=== PATIENT | female | born 1955 | race Caucasian/White ===

== ENCOUNTER → 2018-01-07 06:04 | Outpatient (CLI) | payer OTHER, SELFPAY ==
[2018-01-07 07:42] LABS: Hemoglobin A1c 6.5 % (4.2-6.3)
[2018-01-07 07:44] LABS: Anion Gap 4 (5-15); BUN 11 mg/dL (7-18); BUN/Creat Ratio 13.7 RATIO (10-20); Calcium,Total 8.7 mg/dL (8.5-10.1); Chloride 103 mmol/L (98-107); Cholesterol 108 mg/dL (200); EST Glomerular Filtration Rate 77 mL/min (>60); Est Glom Filt Rate - Afr Amer 93 mL/min (>60); Glucose 137 mg/dL (74-106); High Density Lipoprotein 51 mg/dL; Potassium 3.9 mmol/L (3.5-5.1); Sodium Level 140 mmol/L (136-145); Triglycerides 69 mg/dL; Very Low Density Lipoprotein 14 mg/dL (5-40)
== END ==
PROVIDERS: Family Provider Family Medicine; PCP Family Medicine; Visit Provider Family Medicine
DX: E11.9 Type 2 diabetes mellitus without complications (principal); E78.00 Pure hypercholesterolemia, unspecified; E03.9 Hypothyroidism, unspecified
CPT/HCPCS: 36415; 80048; 80061; 83036; 84443

== ENCOUNTER → 2018-01-12 16:40 | Outpatient (CLI) | payer OTHER, SELFPAY ==
[2018-01-23 12:44] LABS: HPV Reflexed? NOT INDICATED
== END ==
PROVIDERS: Family Provider Family Medicine; PCP Family Medicine; Visit Provider Family Medicine
DX: Z01.419 Encounter for gynecological examination (general) (routine) without abnormal findings (principal)
CPT/HCPCS: 88175; G0145

== ENCOUNTER → 2018-02-09 06:54 | Outpatient (CLI) | payer OTHER, SELFPAY ==
--- NOTE | 2018-02-09 06:48 | BI_ITS ---
MAMMOGRAPHY - BILATERAL SCREENING 3-D KENYETTA SYNTHESIS REASON FOR EXAM: Female, 63 years old. Bilateral Screening 3-D tomosynthesis PERTINENT HISTORY: No significant family history. TECHNIQUE: 2-D mammograms and 3-D Kenyetta synthesis of the breast (s) were performed. CAD was performed. COMPARISON: 02/05/2017 FINDINGS: The breast composition is composed of scattered fibroglandular density. Scattered benign calcifications are seen. No dense spiculated masses or suspicious microcalcifications are identified. No architectural distortion is identified. There is no skin thickening or retraction. Stable axillary adenopathy There has been no significant change since the prior study. BI/SCREENING MAMM (CAD), BILAT IMPRESSION: No mammographic signs of malignancy. Routine yearly mammograms recommended. ASSESSMENT CATEGORY: BIRADS Category 2: Benign. A letter regarding these results will be sent to the patient by the facility within 30 days. FOLLOW UP RECOMMENDATION: Yearly follow up mammogram recommended. (A) Approximately 10% of breast cancers are not detected by mammography. A normal mammogram should not delay biopsy of a clinically suspicious abnormality. Electronically Signed: Wayne Richardson MD at 9:34 EDT , Service support ,
== END ==
PROVIDERS: Family Provider Family Medicine; PCP Family Medicine; Visit Provider Family Medicine
DX: Z12.31 Encounter for screening mammogram for malignant neoplasm of breast (principal)
CPT/HCPCS: 77063; 77067

== ENCOUNTER → 2018-04-30 09:30 | Outpatient (CLI) | payer OTHER, SELFPAY ==
--- NOTE | 2018-04-30 09:38 | RAD_ITS ---
STUDY: X-RAY - RIGHT SHOULDER REASON FOR EXAM: Female, 63 years old. Pain. TECHNIQUE: 4 view(s) of the shoulder. COMPARISON: None. FINDINGS: Normal glenohumeral articulation. There is degenerative arthrosis of the acromioclavicular joint without inferior osseous spur formation. Normal acromion. There is no acute fracture, dislocation or destructive osseous pathology. There is demineralization of the humerus and visualized osseous structures. The soft tissue structures are unremarkable. Normal visualized pulmonary apex. RAD/Shoulder min 2 Views IMPRESSION: Degenerative change of the right shoulder without fracture or dislocation. Electronically Signed: Jeyson Perez DO at 18:08 EDT Tel [phone], Service support ,
== END ==
PROVIDERS: Family Provider Family Medicine; PCP Family Medicine; Visit Provider Family Medicine
DX: S40.011A Contusion of right shoulder, initial encounter (principal)
CPT/HCPCS: 73030

== ENCOUNTER → 2018-07-03 05:54 | Outpatient (CLI) | payer OTHER, SELFPAY ==
[2018-07-03 06:32] LABS: Absolute Lymphocyte Count 1.94 X10^3/ul (0.83-4.51); Absolute Neutrophil Count 3.5 X10^3/uL (2.0-7.7); Basophil# 0.06 X10^3/uL; Eosinophil# 0.02 X10^3/uL; Eosinophils% 0.3 % (0-5); Hematocrit 36.8 % (37-47); Hemoglobin 11.8 g/dl (12.0-15.0); Lymphocyte # 1.94 X10^3/ul (4.0); Lymphocyte % 31.9 % (19-41); Mean Corp Hgb Conc 32.1 g/gl (32-36); Mean Corpuscular Hgb 28.6 pg (27.0-32.0); Mean Corpuscular Volume 89.1 fL (81-99); Mean Platelet Vol. 10.1 fl (6.2-12.0); Monocyte# 0.56 X10^3/uL; Monocyte% 9.2 % (0-10); Neutrophil % 57.4 % (47-70); Platelet Count 223 K/mm3 (150-450); RBC Distribution Width CV 13.3 % (11.6-14.6); RBC Distribution Width SD 42.6 fl (35.1-43.9); Red Blood Count 4.13 M/mm3 (4.2-5.4); White Blood Count 6.1 K/mm3 (4.4-11.0)
[2018-07-03 06:36] LABS: POSITIVE COUNT NO; POSITIVE DIFFERENTIAL NO; POSITIVE MORPHOLOGY NO
[2018-07-03 06:54] LABS: Anion Gap 8 (5-15); BUN 17 mg/dL (7-18); Calcium,Total 8.6 mg/dL (8.5-10.1); Chloride 103 mmol/L (98-107); Cholesterol 113 mg/dL (200); Creatinine, Serum 0.85 mg/dL (0.55-1.02); EST Glomerular Filtration Rate 72 mL/min (>60); Est Glom Filt Rate - Afr Amer 87 mL/min (>60); Glucose 143 mg/dL (74-106); High Density Lipoprotein 56 mg/dL; Magnesium 1.5 mg/dL (1.6-2.6); Potassium 3.7 mmol/L (3.5-5.1); Sodium Level 140 mmol/L (136-145); Thyroid Stim Hormone (TSH) 2.64 uIU/mL (0.358-3.74); Triglycerides 96 mg/dL; Very Low Density Lipoprotein 19 mg/dL (5-40)
[2018-07-03 07:16] LABS: Hemoglobin A1c 6.7 % (4.2-6.3)
== END ==
PROVIDERS: Family Provider Family Medicine; PCP Family Medicine; Visit Provider Family Medicine
DX: E11.9 Type 2 diabetes mellitus without complications (principal); E78.00 Pure hypercholesterolemia, unspecified; E03.9 Hypothyroidism, unspecified; E83.42 Hypomagnesemia
CPT/HCPCS: 36415; 80048; 80061; 83036; 83735; 84443; 85025

== ENCOUNTER → 2018-07-06 08:37 | Outpatient (CLI) | payer OTHER, SELFPAY ==
--- NOTE | 2018-07-06 08:40 | RAD_ITS ---
STUDY: X-RAY - ABDOMEN/PELVIS REASON FOR EXAM: Female, 63 years old. Kidney stones. TECHNIQUE: Single AP view of the abdomen / pelvis. COMPARISON: CT scan 03/03/2017. FINDINGS: Normal visualized lung bases. Very numerous tiny renal stones are seen in all segments of both kidneys, as large as 4 mm. There is an unremarkable bowel gas pattern. There is no demonstrated free abdominal air. The visualized liver, spleen and kidneys are grossly normal in size and morphology. There are calcified phleboliths in the pelvis. Normal visualized osseous structures. RAD/Abdomen Single View IMPRESSION: Very numerous tiny renal stones are seen in all segments of both kidneys, as large as 4 mm. Electronically Signed: Virgilio Price MD at 17:07 EDT , Service support ,
== END ==
PROVIDERS: Family Provider Family Medicine; PCP Family Medicine; Visit Provider Urology
DX: N20.0 Calculus of kidney (principal)
CPT/HCPCS: 74018

== ENCOUNTER 2018-08-19 05:49 | Day surgery (SDC) | payer OTHER, SELFPAY ==
--- NOTE | 2018-08-13 06:09 | EKG12_ITS ---
Test Reason : PREOP Blood Pressure : / mmHG Vent. Rate : 074 BPM Atrial Rate : 074 BPM P-R Int : 164 ms QRS Dur : 098 ms QT Int : 426 ms P-R-T Axes : 049 010 010 degrees QTc Int : 472 ms Normal sinus rhythm Normal ECG Confirmed by TRENA MURCIA, TUCKER ([id number]), news editor OLGA RICHARD ([id number]) on 08/19/2018 2:19:34 PM Referred By: Nkechi Shearer Confirmed By:TUCKER ALBRECHT MD
[2018-08-19 06:26] VITALS: BP 107/66; PULSE 66; RESP 16; TEMP 36.3; O2SAT 96; BMI 38.2
[2018-08-19 07:00] LABS: Bedside Glucose 141 mg/dL (70-110)
[2018-08-19] MEDS: Cefazolin 2 GM in 0.9% Normal Saline 100 ML IV (07:50)
--- NOTE | 2018-08-19 07:57 | DCINST_ITS ---
Discharge Diet: No Restrictions - remove dressings and apply bandaids to incision sites after pod4, may get incisions wet after pod4, sling at all times unless doing pendulums and showering, follow up in office in 2 wks, may move elbow and wrist/hand as tolerated Discharge Activity: May Not Drive May shower in (days): 1 Ice area for (Minutes): 20 - Every hour while awake. Weight Bearing Status: Weight bearing as tolerated Keep extremity elevated above heart level: Operative Extremity Call your doctor if your incision/area has: Continuous Slow Oozing, Sudden Increased Bleeding, Increased Pain/ Swelling, Increased Redness, Foul Smelling Discharge Call your doctor if you observe: Fever of 101 or Higher, Coldness, Increased Pain, Numbness or Tingling, Change in Color, Calf discomfort Allergies/Adverse Reactions: Allergies Sulfa (Sulfonamide Antibiotics) Allergy (Verified 08/12/18 13:20) Rash Medications to take at Discharge Allopurinol [Zyloprim] 300 mg PO DAILY 03/01/15 Aspirin [Aspirin, Baby] 81 mg PO DAILY@0800 03/01/15 Atenolol [Tenormin (beta Yessi)] 25 mg PO BID 03/01/15 Atorvastatin Calcium [Lipitor] 10 mg PO QHS 03/01/15 Cholecalciferol (VIT D3) [Vitamin D] 2,000 unit PO DAILY 03/01/15 Hydrochlorothiazide [Hctz] 25 mg PO DAILY 03/01/15 Levothyroxine [Synthroid] 75 mcg PO DAILY 03/01/15 Metformin HCl [Glucophage] 1,000 mg PO BIDCM 03/01/15 Multivitamins,Therapeutic [Multivitamin] 1 tablet PO DAILY 03/01/15 Cetirizine HCl [All Day Allergy] 10 mg PO DAILY 03/15/15 Magnesium Oxide [Mag-Ox 400] 400 mg PO DAILY 03/05/16 Potassium Chloride [Klor-Con M20] 15 meq PO BID 03/05/16 Calcium Carbonate [Calcium] 1,000 mg PO DAILY 08/12/18 Diclofenac Sodium [Pennsaid] 112 gm TP PRN PRN 08/12/18 Difenoxin HCl/Atropine Sulfate [Motofen Tablet] 1 each PO Q6H 08/12/18 Hydroxychloroquine Sulfate [Plaquenil] 200 mg PO BID 08/12/18 Hydrocodone Bitart/Apap 5-325 [[place] 5MG-325MG] 1 - 2 tablet PO Q6H PRN PRN 5 Days #40 tablet 08/19/18 Zolpidem Tartrate [Ambien (Generic)] 5 mg PO QHS PRN PRN #14 tablet 08/19/18 The following prescriptions were given: Hydrocodone Bitart/Apap 5-325 [[place] 5MG-325MG] 1 - 2 tablet PO Q6H PRN PRN 5 Days #40 tablet PRN Reason: Pain Zolpidem Tartrate [Ambien (Generic)] 5 mg PO QHS PRN PRN #14 tablet PRN Reason: Insomnia Orders to be completed after discharge: 12 Lead EKG [[facility]] Time Frame: 08/13/18, Location: None Selected Primary Care Physician: Mike Martinez MD [Primary Care Provider] - Test Results: Test results from this visit will be discussed in further detail at your follow- up appointment, if applicable. Please Follow Up With: Nkechi Shearer, - [phone]
--- NOTE | 2018-08-19 07:57 | PCM.OPRPT ---
Report of Operation Date of Procedure: 08/19/18 Pre-Operative Diagnosis: right shoulder rotator cuff tear, subacromial impingment, biceps tendinosis Post-Operative Diagnosis: same Surgery/Procedure Performed:: sars, rc repair, subacromial decompression/acromioplasty, biceps tenotomy production control coordinator: Terrell Aceves Type of Anesthesia:: General Anesthesiologist: Tucker Bocanegra Estimated Blood Loss (mL): none Fluids Replaced: 1100 Description of Procedure: Preoperative note Patient is a 63-year-old female with continued right shoulder pain pain elevating and weakness. Failed conservative treatment MRI confirms rotator cuff tear biceps tendinosis and subacromial impingement. Patient like to proceed with right shoulder arthroscopy repair is indicated. Risks benefits and alternatives surgery discussed with patient. Risks include but not limited to blood loss, blood clot, infection, neurovascular, failure procedure, loss of life and loss of limb. Patient is aware like and would like proceed with right shoulder arthroscopy repair is indicated. Operative note Patient seen and examined preoperative holding area. Right shoulder was marked. Patient brought to the operating room and placed supine on the operating room table. Signing, anesthesia, antibiotics were measured. All bony possible padded and SCDs placed on her bilateral lower extremity. Patient was placed in beachchair positioning and assisted through we did recheck her blood pressure and did have to medicate her in order to keep her maps above 60. The right shoulder demonstrate prepped and draped in usual sterile fashion we marked out our incision for our portals. Timeout was performed. We then insufflated the glenohumeral joint from the posterior aspect with 60 cc of normal saline. We had good outflow. We then used an 11 blade to create our posterior portal. Begin our diagnostic arthroscopy. Her biceps was obviously torn partial tearing throughout even intra-articular. We created an anterior portal under direct visualization. We then truncated the biceps at its labral junction. We then was used a shaver to resect and debride the insertion to a stable rim. We were able to visualize the rotator cuff tear of the leading edge U-shaped. There is also there were no loose bodies in the inferior recess and her subscapularis was intact. We then moved to our subacromial space. Created a lateral portal under direct visualization. There is some bursitis mainly in the posterior right recess which was removed a combination of a shaver and ablator. We then were able to further delineate her tear the tendon itself was with space we did resect any kind of loose pieces tendon and noted we had a larger U-shaped tear than we had seen from the undersurface. We then placed a speed bridge in standard technique with our 2 medial and 2 Lateral Row anchors. We had good coverage of the footprint. Please note that prior to placing her anchors we did use a burner and a bur to create a bed for our anchors. We then were able to again this is [employer] speed bridge device in standard technique and were able to have good coverage. Please note also prior to this we did use a tendon grasper to see where the tendon was most mobile see if he had to do any further releases which we did not have the move the tendon from posterior to anterior had good coverage of the footprint at that point. We also did an acromioplasty she had a type II acromion with an extra spur a little bit more medially than her lateral edge. This was debrided with the bur as well. The subacromial space was irrigated with copious amounts of sterile saline. The portals were closed with interrupted 4-0 nylon stitches sterile to stretch things and a sling was applied. Patient tolerated tolerated procedure well there are no comp occasions transferred to recovery room in stable condition. Postoperative note Discussed with family Either the mother or the friend will stay with the patient for the next 24 hours Pharmacy has prescriptions as We will give pictures at the 2-week postop visit Call with increased pain numbness tingling further issues arise Dragon disclaimer this note was generated with [employer] dictation software. It may contain incorrect words, spelling, and punctuation that were not noted in checking the note before signing.
[2018-08-19] MEDS: Bupiv/Epi 0.5% Mpf 30 ML Vial (09:42)
[2018-08-19] MEDS: Mupirocin Ointment 22gm Tube 1 APPLIC (09:45)
[2018-08-19 10:01] VITALS: BP 107/66; BP 112/49; PULSE 76; RESP 14; TEMP 36.3; O2SAT 92
[2018-08-19 10:15] VITALS: BP 107/66; BP 109/60; PULSE 77; RESP 16; O2SAT 95
[2018-08-19 10:30] VITALS: BP 107/66; BP 113/62; PULSE 75; RESP 16; O2SAT 95
[2018-08-19 10:40] VITALS: BP 107/66; BP 112/64; PULSE 74; RESP 16; TEMP 35.8; O2SAT 95
[2018-08-19] MEDS: HYDROcodone Bitartrate/Apap 5/325 Tablet PO ×2 (11:08→11:41)
[2018-08-19 11:10] LABS: Bedside Glucose 218 mg/dL (70-110)
[2018-08-19 12:00] VITALS: BP 107/66; BP 110/56; PULSE 79; RESP 16; TEMP 36.3; O2SAT 93
== END 2018-08-19 12:03 | disposition home or self-care (01) ==
LOC: SDC 05:49 → AC 05:51
PROVIDERS: Family Provider Family Medicine; PCP Family Medicine; Referring Provider Orthopaedic Surgery; Visit Provider Orthopaedic Surgery
PROC: (CPT 29827; principal; 2018-08-19 07:10)
DX: M75.101 Unspecified rotator cuff tear or rupture of right shoulder, not specified as traumatic (principal); M75.41 Impingement syndrome of right shoulder; E11.9 Type 2 diabetes mellitus without complications; E78.00 Pure hypercholesterolemia, unspecified; K58.9 Irritable bowel syndrome, unspecified; Z78.0 Asymptomatic menopausal state; Z79.82 Long term (current) use of aspirin; Z79.4 Long term (current) use of insulin; Z79.891 Long term (current) use of opiate analgesic; Z79.899 Other long term (current) drug therapy
CPT/HCPCS: 29826; 29827; 82962; 93005; J7120; J2405

== ENCOUNTER → 2018-09-25 15:59 | Outpatient (CLI) | payer OTHER, SELFPAY ==
[2018-09-28 20:07] LABS: Endomysial Antibody IgA Negative (Negative)
[2018-09-29 10:42] LABS: Immunoglobulin A 177 mg/dL (87-352); t-Transglutaminase IgA <2 U/mL (0-3)
--- OUTSIDE RECORDS SUMMARY | 2018-12-30 07:09 | XMS RPT_ITS ---
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 Bleeding, Increased Pain/ Swelling, Increased Redness, Foul Smelling Discharge Call your doctor if you observe: Fever of 101 or Higher, Coldness, Increased Pain, Numbness or Tingling, Change in Color, Calf discomfort Allergies/Adverse Reactions: Allergies Sulfa (Sulfonamide Antibiotics) Allergy (Verified 08/12/18 13:20) Rash Medications to take at Discharge Allopurinol [Zyloprim] 300 mg PO DAILY 03/01/15 Aspirin [Aspirin, Baby] 81 mg PO DAILY@0800 03/01/15 Atenolol [Tenormin (beta Yessi)] 25 mg PO BID 03/01/15 Atorvastatin Calcium [Lipitor] 10 mg PO QHS 03/01/15 Cholecalciferol (VIT D3) [Vitamin D] 2,000 unit PO DAILY 03/01/15 Hydrochlorothiazide [Hctz] 25 mg PO DAILY 03/01/15 Levothyroxine [Synthroid] 75 mcg PO DAILY 03/01/15 Metformin HCl [Glucophage] 1,000 mg PO BIDCM 03/01/15 Multivitamins,Therapeutic [Multivitamin] 1 tablet PO DAILY 03/01/15 Cetirizine HCl [All Day Allergy] 10 mg PO DAILY 03/15/15 Magnesium Oxide [Mag-Ox 400] 400 mg PO DAILY 03/05/16 Potassium Chloride [Klor-Con M20] 15 meq PO BID 03/05/16 Calcium Carbonate [Calcium] 1,000 mg PO DAILY 08/12/18 Diclofenac Sodium [Pennsaid] 112 gm TP PRN PRN 08/12/18 Difenoxin HCl/Atropine Sulfate [Motofen Tablet] 1 each PO Q6H 08/12/18 Hydroxychloroquine Sulfate [Plaquenil] 200 mg PO BID 08/12/18 Hydrocodone Bitart/Apap 5-325 [[place] 5MG-325MG] 1 - 2 tablet PO Q6H PRN PRN 5 Days #40 tablet 08/19/18 Zolpidem Tartrate [Ambien (Generic)] 5 mg PO QHS PRN PRN #14 tablet 08/19/18 The following prescriptions were given: Hydrocodone Bitart/Apap 5-325 [[place] 5MG-325MG] 1 - 2 tablet PO Q6H PRN PRN 5 Days #40 tablet PRN Reason: Pain Zolpidem Tartrate [Ambien (Generic)] 5 mg PO QHS PRN PRN #14 tablet PRN Reason: Insomnia Orders to be completed after discharge: 12 Lead EKG [[facility]] Time Frame: 08/13/18, Location: None Selected Primary Care Physician: Duong Richard MD [Primary Care Provider] - Test Results: Test results from this visit will be discussed in further detail at your follow-up appointment, if applicable. Please Follow Up With: Nkechi Shearer DO - [phone] 08/19/18 0757 <Electronically signed by Nkechi Shearer DO> Date Nkechi Shearer DO CC: Duong Richard MD BEDSIDE GLUCOSE Collected: 08/19/2018 Status: F Source[facility] TYPE CODE TESTS RESULT OUT OF REFERENCE UNITS RANGE LAB L501.080 70-110 mg/dL High BEDSIDE GLU 141 Result Comment: MANAGEMENT OF PATIENT CARE PER NURSING PROTOCOL Performed By: #### L501.080 #### [facility] Point of Care [address] [place] [address] ORTHOPEDIC VISIT Observed: 07/21/2018 Status: F Source: [place] REPORT 11:17 AM [facility] REPOSITORY [facility] [address] [place] [address] [address] [place] [address] OFFICE VISIT Date of Service: 07/20/18 MR#: [id number] Acct: [id number] Name: ASTRID DUMONT Rep #: [id number] : 1955 Provider: MIKE Aceves Age/Sex: 63/F [place] [facility] [place] [place]: Signed Intake Intake Visit Reasons: RIGHT SHOULDER Is patient in pain?: Yes Allergies Sulfa (Sulfonamide Antibiotics) Allergy (Verified 03/05/16 11:01) Rash Medications Allopurinol [Zyloprim] 300 mg PO DAILY 03/01/15 [History Confirmed 03/05/16] Aspirin [Aspirin, Baby] 81 mg PO DAILY@0800 03/01/15 [History Confirmed 03/05/16] Atenolol [Tenormin (beta Yessi)] 25 mg PO BID 03/01/15 [History Confirmed 03/06/16] Atorvastatin Calcium [Lipitor] 10 mg PO QHS 03/01/15 [History Confirmed 03/05/16] Cholecalciferol (VIT D3) [Vitamin D] 1,000 unit PO DAILY 03/01/15 [History Confirmed 03/05/16] Hydrochlorothiazide [Hctz] 25 mg PO DAILY 03/01/15 [History Confirmed 03/05/16] Levothyroxine [Synthroid] 75 mcg PO QHS 03/01/15 [History Confirmed 03/05/16] Metformin HCl [Glucophage] 1,000 mg PO BIDCM 03/01/15 [History Confirmed 03/05/16] Multivitamins,Therapeutic [Multivitamin] 1 tab PO DAILY 03/01/15 [History Confirmed 03/05/16] Cetirizine HCl [All Day Allergy] 10 mg PO DAILY 03/15/15 [History Confirmed 03/05/16] L.acidoph,Paracasei, B.lactis [Probiotic] 1 ea PO DAILY 03/05/16 [History Confirmed 03/05/16] Magnesium Oxide [Mag-Ox 400] 400 mg PO DAILY 03/05/16 [History Confirmed 03/05/16] Mesalamine [Lialda] 1.2 gm PO BID 03/05/16 [History Confirmed 03/05/16] Potassium Chloride [Klor-Con M20] 20 meq PO DAILY 03/05/16 [History Confirmed 03/05/16] Oxycodone HCl/Acetaminophen [Percocet 5/325] 1 - 2 tab PO Q6H PRN PRN #20 tab 03/06/16 [Rx] PFSH Social History Smoking Status: Never smoker HPI RIGHT SHOULDER: Details: ASTRID DUMONT is a 63 year old F here today to sign consent for right shoulder surgery. She complains of weakness but has full rom. She only has pain at the end ranges or with some movements in IR. She has an appointment with her RA doctor prior to surgery as well. Denies numbness, tingling or other associated symptoms. ROS [facility] [place] Reports joint pain, Reports as per HPI Ortho Exam Right Shoulder Skin/Wound: No ecchymosis Contralateral Normal: Yes Testing: Positive AROM-Forward Elevation 0-180 and AROM-External Rotation at side 0-60 Internal Rotation: Tip of Scapula Assessment AND Plan Problems 1. Tear of right rotator cuff, unspecified tear extent M75.101 Plan Patient is here to signs surgical consent to proceed with right shoulder arthroscopy / rotator cuff repair. Risks and benefits were discussed with her and questions were answered. Consent was signed. We discussed surgical protocols in terms of PAT testing and surgical scheduling. They will contact her with PAT and will notify her of surgical times the day before surgery. She can notify the office with any questions that she has in the mean time. She will follow-up in the office post-operatively as directed. Coding Level of Care Code Off vis,est,level 2 Diagnoses Tear of right rotator cuff, unspecified tear extent M75.101 Rotator cuff tear extent: unspecified tear extent 07/21/18 1117 <Electronically signed by Terrell MCKEON> Date Terrell Espino Signature: Date (if applicable) CC: ORTHOPEDIC VISIT Observed: 07/14/2018 Status: F Source: [place] REPORT 3:00 PM [facility] REPOSITORY [facility] [address] [place] [address] OFFICE VISIT Date of Service: 07/07/18 MR#: [id number] Acct: [id number] Name: ASTRID DUMONT Rep #: [id number] : 1955 Provider: Nkechi Shearer DO Age/Sex: 63/F [place] [facility] [place] [place]: Signed Intake Intake Visit Reasons: RIGHT SHOULDER Allergies Sulfa (Sulfonamide Antibiotics) Allergy (Verified 03/05/16 11:01) Rash Medications Allopurinol [Zyloprim] 300 mg PO DAILY 03/01/15 [History Confirmed 03/05/16] Aspirin [Aspirin, Baby] 81 mg PO DAILY@0800 03/01/15 [History Confirmed 03/05/16] Atenolol [Tenormin (beta Yessi)] 25 mg PO BID 03/01/15 [History Confirmed 03/06/16] Atorvastatin Calcium [Lipitor] 10 mg PO QHS 03/01/15 [History Confirmed 03/05/16] Cholecalciferol (VIT D3) [Vitamin D] 1,000 unit PO DAILY 03/01/15 [History Confirmed 03/05/16] Hydrochlorothiazide [Hctz] 25 mg PO DAILY 03/01/15 [History Confirmed 03/05/16] Levothyroxine [Synthroid] 75 mcg PO QHS 03/01/15 [History Confirmed 03/05/16] Metformin HCl [Glucophage] 1,000 mg PO BIDCM 03/01/15 [History Confirmed 03/05/16] Multivitamins,Therapeutic [Multivitamin] 1 tab PO DAILY 03/01/15 [History Confirmed 03/05/16] Cetirizine HCl [All Day Allergy] 10 mg PO DAILY 03/15/15 [History Confirmed 03/05/16] L.acidoph,Paracasei, B.lactis [Probiotic] 1 ea PO DAILY 03/05/16 [History Confirmed 03/05/16] Magnesium Oxide [Mag-Ox 400] 400 mg PO DAILY 03/05/16 [History Confirmed 03/05/16] Mesalamine [Lialda] 1.2 gm PO BID 03/05/16 [History Confirmed 03/05/16] Potassium Chloride [Klor-Con M20] 20 meq PO DAILY 03/05/16 [History Confirmed 03/05/16] Oxycodone HCl/Acetaminophen [Percocet 5/325] 1 - 2 tab PO Q6H PRN PRN #20 tab 03/06/16 [Rx] PFSH Social History Smoking Status: Never smoker HPI RIGHT SHOULDER: Details: ASTRID DUMONT is a 63 year old F here today for second opinion on a rotator cuff tear that was diagnoses at OSH. She has questions regarding post op care and restrictions. She has full rom, no pain except at end range of IR and has good strength. She brought her recent MRI with her review. Denies numbness, tingling or other associated symptoms. Ortho Exam Right Shoulder Skin/Wound: Yes CDI Contralateral Normal: Yes Testing: Positive AROM-Forward Elevation 0-180 and AROM-External Rotation at side 0-60 Assessment AND Plan 1. Complete tear of right rotator cuff M75.121 Plan Personally reviewed the patient's medical history, medications, surgeries and recent exams if available. X-rays were reviewed. There is no obvious fracture, dislocation, or lucency noted. Educated on the anatomy of the shoulder and the procedure for RTC repair. Explained that she will not be able to lift overhead for 6-12wks, she will be in a sling for 6wks and the differences between tenodesis and tenotomy. She can use the hand and wrist at work after a few weeks and remove the sling when seated but must sleep in brace. However on exam she is not painful, she has full rom and she has good strength and discussed that she can try conservative care but the risk is further injury or atrophy. Follow up in [] or sooner if pain, swelling, numbness or associated symptoms, or concerns develop. All questions answered. Patient in agreement of plan. 2. Subacromial impingement of right shoulder M75.41 3. Bicipital tendinitis, right shoulder M75.21 Coding Level of Care Code Off vis,new,level 3 Diagnoses Complete tear of right rotator cuff M75.121 Rotator cuff tear extent: complete Subacromial impingement of right shoulder M75.41 Bicipital tendinitis, right shoulder M75.21 07/14/18 1500 <Electronically signed by Nkechi Shearer DO> Date Nkechi Shearer DO Cosigner Signature: Date (if applicable) CC: ABDOMEN SINGLE VIEW Observed: 07/06/2018 Status: F Source: [place] 8:39 AM [facility] REPOSITORY [facility] Imaging Services [address] [place] [address] Abdomen Single View MR#: [id number] Acct: [id number] Name: ASTRID DUMONT Rep #: [id number] : 1955 F 63 From: Virgilio Price MD PCP: Duong Richard MD Status: REG CLI Study: Abdomen Single View Date of Exam: 07/06/18 Exam# [id number] Ordering Dr: Panfilo Carney MD STUDY: X-RAY - ABDOMEN/PELVIS REASON FOR EXAM: Female, 63 years old. Kidney stones. TECHNIQUE: Single AP view of the abdomen / pelvis. COMPARISON: CT scan 03/03/2017. FINDINGS: Normal visualized lung bases. Very numerous tiny renal stones are seen in all segments of both kidneys, as large as 4 mm. There is an unremarkable bowel gas pattern. There is no demonstrated free abdominal air. The visualized liver, spleen and kidneys are grossly normal in size and morphology. There are calcified phleboliths in the pelvis. Normal visualized osseous structures. RAD/Abdomen Single View IMPRESSION: Very numerous tiny renal stones are seen in all segments of both kidneys, as large as 4 mm. Electronically Signed: Virgilio Price MD at 17:07 EDT , Service support , CC: Duong Richard MD; Panfilo Carney MD Power Marketer: Signed CBC W/DIFF, AUTOMATED Collected: 07/03/2018 Status: F Source: [place] 6:01 AM [facility] REPOSITORY Order Comment: Order Date: 07/02/18 Order Info: 0184-1 - CBCD TYPE CODE TESTS RESULT OUT OF RANGE REFERENCE UNITS LAB L100.1000 4.4-11.0 K/mm3 Normal WBC 6.1 LAB L100.1200 4.2-5.4 M/mm3 Low RBC 4.13 LAB L100.1300 12.0-15.0 g/dl Low HGB 11.8 LAB L100.1400 37-47 % Low HCT 36.8 LAB L100.1500 81-99 fL Normal MCV 89.1 LAB L100.1600 27.0-32.0 pg Normal MCH 28.6 LAB L100.1700 32-36 g/gl Normal MCHC 32.1 LAB L100.1810 11.6-14.6 % Normal RDW CV 13.3 LAB L100.1820 35.1-43.9 fl Normal RDW SD 42.6 LAB L100.1900 150-450 K/mm3 Normal PLT 223 LAB L100.2000 6.2-12.0 fl Normal MPV 10.1 LAB L100.2100 47-70 % Normal NEUT% 57.4 LAB L100.2200 19-41 % Normal LY% 31.9 LAB L100.2300 0-10 % Normal MONO% 9.2 LAB L100.2400 0-5 % Normal EO% 0.3 LAB L100.2500 0-1 % Normal BASO% 1.0 LAB L100.2550 0.0-0.9 % Normal IM GRAN % 0.200 Result Comment: IG% - Immature Granulocytes (promyelocytes, myelocytes and metamyelocytes) > 1% indicates that a LEFT SHIFT is Present. LAB L100.2620 2.0-7.7 X10 3/uL Normal Absolute Neut 3.5 LAB L100.2720 0.83-4.51 X10 3/ul Normal Absolute Lymph 1.94 Performed By: #### L100.0100, L500.2500, L500.4100, L501.5200, L501.9520, L501.9985 #### [facility] [address] [place], [address] BASIC METABOLIC Collected: 07/03/2018 Status: F Source: [place] PROFILE (BMP) 6:01 AM [facility] REPOSITORY Order Comment: Order Date: 07/02/18 Order Info: 0667-1 - BMP Order Info: 64270-8 - LIPID Order Info: 26618-3 - MG Order Info: 3016-3 - TSH TYPE CODE TESTS RESULT OUT OF RANGE REFERENCE UNITS LAB L501.0100 74-106 mg/dL High GLU 143 Result Comment: Fasting Glucose result greater than or equal to 126 mg/dL suggests DIABETES MELLITUS per A.D.A. criteria. Please note revised GLUCOSE reference range effective 2017. LAB L501.1000 7-18 mg/dL Normal BUN 17 LAB L501.1100 0.55-1.02 mg/dL Normal CREAT,SERUM 0.85 Result Comment: The validity of the calculated GFR AND GFRAA in patients over 70 years has not been determined. Clinical correlation is essential. LAB L501.1110 >60 mL/min Normal EST GFR 72 Result Comment: Non- GFR Calc LAB L501.1115 >60 mL/min Normal EST GFR - AA 87 Result Comment: GFR Calc LAB L501.1300 10-20 RATIO Normal BUN/CRE 20.0 LAB L501.2200 8.5-10.1 mg/dL CA Normal 8.6 LAB L501.5300 136-145 mmol/L NA Normal 140 LAB L501.5600 3.5-5.1 mmol/L K Normal 3.7 LAB L501.5900 98-107 mmol/L CL Normal 103 LAB L501.6100 21.0-32.0 mmol/L Normal CO2 29.0 LAB L501.6200 5-15 Normal GAP 8 Performed By: #### L100.0100, L500.2500, L500.4100, L501.5200, L501.9520, L501.9985 #### [facility] [address] [place], [place], [address] LIPID PROFILE Collected: 07/03/2018 Status: F Source: [place] 6:01 AM [facility] REPOSITORY Order Comment: Order Date: 07/02/18 Order Info: 0667-1 - BMP Order Info: 46717-6 - LIPID Order Info: 37638-8 - MG Order Info: 3016-3 - TSH TYPE CODE TESTS RESULT OUT OF RANGE REFERENCE UNITS LAB L501.4900 200 mg/dL Normal CHOL 113 Result Comment: <200 mg/dL Desirable 200-240 mg/dL Borderline >240 mg/dL High Risk LAB L501.5000 mg/dL Normal TRIG 96 Result Comment: The drugs N-Acetylcysteine and Metamizole may falsely depress this assay. Serum Triglycerides Reference Interval Normal <150 mg/dL Borderline high 150 - 199 mg/dL High 200 - 499 mg/dL Very High > or = 500 mg/dL LAB L501.6400 mg/dL Normal HDL 56 Result Comment: The drugs N-Acetylcysteine and Metamizole may falsely depress this assay. Reference Range HDL <40 mg/dL Low HDL Cholesterol HDL >or= 60 mg/dL High HDL Cholesterol LAB L501.6500 0-130 mg/dL Normal LDL 38 LAB L501.6600 5-40 mg/dL Normal VLDL 19 Performed By: #### L100.0100, L500.2500, L500.4100, L501.5200, L501.9520, L501.9985 #### [facility] [address] [place], [place], [address] MAGNESIUM Collected: 07/03/2018 Status: F Source: [place] 6:01 [facility] REPOSITORY Order Comment: Order Date: 07/02/18 Order Info: 0667-1 - BMP Order Info: 45443-7 - LIPID Order Info: 76238-8 - MG Order Info: 3016-3 - TSH TYPE CODE TESTS RESULT OUT OF RANGE REFERENCE UNITS LAB L501.5200 1.6-2.6 mg/dL Low MG 1.5 Performed By: #### L100.0100, L500.2500, L500.4100, L501.5200, L501.9520, L501.9985 #### [facility] [address] [place], [address] THYROID STIM HORMONE Collected: 07/03/2018 Status: F Source: [place] (TSH) 6:01 AM [facility] REPOSITORY Order Comment: Order Date: 07/02/18 Order Info: 0667-1 - BMP Order Info: 24237-1 - LIPID Order Info: 16088-3 - MG Order Info: 3016-3 - TSH TYPE CODE TESTS RESULT OUT OF RANGE REFERENCE UNITS LAB L501.9520 0.358-3.74 uIU/mL Normal TSH 2.64 Performed By: #### L100.0100, L500.2500, L500.4100, L501.5200, L501.9520, L501.9985 #### [facility] [address] [place], [address] HEMOGLOBIN A1C Collected: 07/03/2018 Status: F Source: [place] 6:01 AM [facility] REPOSITORY Order Comment: Order Date: 07/02/18 Order Info: 4548-4 - A1C TYPE CODE TESTS RESULT OUT OF RANGE REFERENCE UNITS LAB L501.9985 4.2-6.3 % High HGB A1C 6.7 Performed By: #### L100.0100, L500.2500, L500.4100, L501.5200, L501.9520, L501.9985 #### [facility] [address] [place], [place], [address] SHOULDER MIN 2 VIEWS Observed: 04/30/2018 Status: F Source: [place] 9:38 AM [facility] REPOSITORY [facility] Imaging Services [address] [place] [address] Shoulder min 2 Views MR#: [id number] Acct: [id number] Name: ASTRID DUMONT Rep #: [id number] : 1955 F 63 From: Jeyson Perez DO PCP: Duong Richard MD Status: REG CLI Study: Shoulder min 2 Views Date of Exam: 04/30/18 Exam# [id number] Ordering Dr: Duong Richard MD STUDY: X-RAY - RIGHT SHOULDER REASON FOR EXAM: Female, 63 years old. Pain. TECHNIQUE: 4 view(s) of the shoulder. COMPARISON: None. FINDINGS: Normal glenohumeral articulation. There is degenerative arthrosis of the acromioclavicular joint without inferior osseous spur formation. Normal acromion. There is no acute fracture, dislocation or destructive osseous pathology. There is demineralization of the humerus and visualized osseous structures. The soft tissue structures are unremarkable. Normal visualized pulmonary apex. RAD/Shoulder min 2 Views IMPRESSION: Degenerative change of the right shoulder without fracture or dislocation. Electronically Signed: Jeyson Perez DO at 18:08 EDT Tel [phone], Service support , CC: Duong Richard MD Power Marketer: Signed SCREENING MAMM (CAD), Observed: 2018 Status: F Source: [place] BIL 6:48 AM [facility] REPOSITORY [facility] Imaging Services [address] [place] [address] SCREENING MAMM (CAD), BILAT MR#: [id number] Acct: [id number] Name: ASTRID DUMONT Rep #: [id number] : 1955 F 63 From: Hood Richardson MD PCP: Duong Richard MD Status: REG CLI Study: SCREENING MAMM (CAD), BILAT Date of Exam: 02/09/18 Exam# [id number] Ordering Dr: Duong Richard MD MAMMOGRAPHY - BILATERAL SCREENING 3-D GONSALO SYNTHESIS REASON FOR EXAM: Female, 63 years old. Bilateral Screening 3-D tomosynthesis PERTINENT HISTORY: No significant family history. TECHNIQUE: 2-D mammograms and 3-D Gonsalo synthesis of the breast (s) were performed. CAD was performed. COMPARISON: 02/05/2017 FINDINGS: The breast composition is composed of scattered fibroglandular density. Scattered benign calcifications are seen. No dense spiculated masses or suspicious microcalcifications are identified. No architectural distortion is identified. There is no skin thickening or retraction. Stable axillary adenopathy There has been no significant change since the prior study. BI/SCREENING MAMM (CAD), BILAT IMPRESSION: No mammographic signs of malignancy. Routine yearly mammograms recommended. ASSESSMENT CATEGORY: BIRADS Category 2: Benign. A letter regarding these results will be sent to the patient by the facility within 30 days. FOLLOW UP RECOMMENDATION: Yearly follow up mammogram recommended. (A) Approximately 10% of breast cancers are not detected by mammography. A normal mammogram should not delay biopsy of a clinically suspicious abnormality. Electronically Signed: Wayne Richardson MD at 9:34 EDT , Service support , CC: Duong Richard MD Power Marketer: Signed PAP I-G W/RFX HRHPV Collected: 01/12/2018 Status: F Source: [place] 9:30 AM [facility] REPOSITORY Order Comment: CYTOLOGY INFORMATION: - CLINICAL INFORMATION: - DATE LMP/MENOPAUSE: LMP NOT GIVEN - COLLECTION VIAL: Thin Prep Vial - SAP PORTAL CONSULTANT SOURCE: CERVICAL/ENDOCERVICAL - COLLECTION TECHNIQUE: BRUSH/SPATULA Specimen Comment: [id number] Specimen Comment: No. of containers..01 ThinPrep Vial TYPE CODE TESTS RESULT OUT OF RANGE REFERENCE UNITS LAB L7400.0800 . Normal DIAGN Comment Result Comment: NEGATIVE FOR INTRAEPITHELIAL LESION AND MALIGNANCY. LAB L7400.0900 . Normal ADEQ Comment Result Comment: Satisfactory for evaluation. Endocervical and/or squamous metaplastic cells (endocervical component) are present. LAB L7400.1400 . Normal PERFORM Comment Result Comment: Gudelia Bahena, Sample Tester Grinder (ASCP) LAB L7400.2575 . Normal TEST METHOD Comment Result Comment: This liquid based ThinPrep(R) pap test was screened with the use of an image guided system. LAB L7400.2600 . Normal . COMM LAB L7400.2700 . Normal PAPSMR Comment Result Comment: The Pap smear is a screening test designed to aid in the detection of premalignant and malignant conditions of the uterine cervix. It is not a diagnostic procedure and should not be used as the sole means of detecting cervical cancer. Both false-positive and false-negative reports do occur. LAB L7400.2800 . Normal HPV RFLX Comment Result Comment: The HPV DNA reflex criteria were not met with this specimen result therefore, no HPV testing was performed. Performed at: - [facility] [id number] Instrument Maker: Zohreh Mascorro MD, Phone: [phone] Performed By: #### L7400.0350 #### [facility] (refer to report for specific site) refer to report for address and phone number HEMOGLOBIN A1C Collected: 01/07/2018 Status: F Source: [place] 6:09 AM [facility] REPOSITORY Order Comment: Order Date: 01/06/18 Order Info: 4548-4 - A1C TYPE CODE TESTS RESULT OUT OF RANGE REFERENCE UNITS LAB L501.9985 4.2-6.3 % High HGB A1C 6.5 Performed By: #### L501.9985, L500.2500, L500.4100, L501.9520 #### [facility] [address] [place], [address] BASIC METABOLIC Collected: 01/07/2018 Status: F Source: [place] PROFILE (BMP) 6:09 AM [facility] REPOSITORY Order Comment: Order Date: 01/06/18 Order Info: 0667-1 - BMP Order Info: 63528-4 - LIPID Order Info: 3016-3 - TSH TYPE CODE TESTS RESULT OUT OF RANGE REFERENCE UNITS LAB L501.0100 74-106 mg/dL High GLU 137 Result Comment: Fasting Glucose result greater than or equal to 126 mg/dL suggests DIABETES MELLITUS per A.D.A. criteria. Please note revised GLUCOSE reference range effective 2017. LAB L501.1000 7-18 mg/dL Normal BUN 11 LAB L501.1100 0.55-1.02 mg/dL Normal CREAT,SERUM 0.80 Result Comment: The validity of the calculated GFR AND GFRAA in patients over 70 years has not been determined. Clinical correlation is essential. LAB L501.1110 >60 mL/min Normal EST GFR 77 Result Comment: Non- GFR Calc LAB L501.1115 >60 mL/min Normal EST GFR - AA 93 Result Comment: GFR Calc LAB L501.1300 10-20 RATIO Normal BUN/CRE 13.7 LAB L501.2200 8.5-10.1 mg/dL CA Normal 8.7 LAB L501.5300 136-145 mmol/L NA Normal 140 LAB L501.5600 3.5-5.1 mmol/L K Normal 3.9 LAB L501.5900 98-107 mmol/L CL Normal 103 LAB L501.6100 21.0-32.0 mmol/L High CO2 33.0 LAB L501.6200 5-15 Low GAP 4 Performed By: #### L501.9985, L500.2500, L500.4100, L501.9520 #### [facility] [address] [place], [address] LIPID PROFILE Collected: 01/07/2018 Status: F Source: REVELO 6:09 AM [facility] REPOSITORY Order Comment: Order Date: 01/06/18 Order Info: 0667-1 - BMP Order Info: 21657-9 - LIPID Order Info: 3016-3 - TSH TYPE CODE TESTS RESULT OUT OF RANGE REFERENCE UNITS LAB L501.4900 200 mg/dL Normal CHOL 108 Result Comment: <200 mg/dL Desirable 200-240 mg/dL Borderline >240 mg/dL High Risk LAB L501.5000 mg/dL Normal TRIG 69 Result Comment: The drugs N-Acetylcysteine and Metamizole may falsely depress this assay. Serum Triglycerides Reference Interval Normal <150 mg/dL Borderline high 150 - 199 mg/dL High 200 - 499 mg/dL Very High > or = 500 mg/dL LAB L501.6400 mg/dL Normal HDL 51 Result Comment: The drugs N-Acetylcysteine and Metamizole may falsely depress this assay. Reference Range HDL <40 mg/dL Low HDL Cholesterol HDL >or= 60 mg/dL High HDL Cholesterol LAB L501.6500 0-130 mg/dL Normal LDL 43 LAB L501.6600 5-40 mg/dL Normal VLDL 14 Performed By: #### L501.9985, L500.2500, L500.4100, L501.9520 #### [facility] [address] [place], [address] THYROID STIM HORMONE Collected: 01/07/2018 Status: F Source: FERNANDEZ (TSH) 6:09 AM [facility] REPOSITORY Order Comment: Order Date: 01/06/18 Order Info: 0667-1 - BMP Order Info: 64849-5 - LIPID Order Info: 3016-3 - TSH TYPE CODE TESTS RESULT OUT OF RANGE REFERENCE UNITS LAB L501.9520 0.358-3.74 uIU/mL Normal TSH 3.50 Performed By: #### L501.9985, L500.2500, L500.4100, L501.9520 #### [facility] [address] [place], [address] ALLERGIES ALLERGIES DATE TYPE / CODE NAME / CODE REACTION SEVERITY SOURCE 10/01/2018 Drug Sulfa Rash Unknown [facility] Allergy/4160 (Sulfonamide [facility] 63970(SNOMED Antibiotics)/ Repository CT) [id number](RX NORM) ENCOUNTERS ENCOUNTERS ADMIT/DISCHARGE ACCOUNT ADMITTING ENCOUNTER LOCATION SOURCE NUMBER CLASS 11/04/2018 [id number] Ambulatory [place] Fernandez 8 [facility] ing:PT Repository 10/01/2018/ [id number] Ambulatory BMSBuilding:B Fern[place] 8 8 [facility] Repository 09/25/2018 [id number] Ambulatory [place] Fernandez 5 [facility] ing:MTLAB Repository 09/01/2018/ [id number] Ambulatory BMSBuilding:B [place] 8 5 [facility] Repository 08/19/2018/ [id number] Ambulatory [place] Fernandez 8 3 [facility] ing:SDCRoom: Repository AC20 08/19/2018/ [id number] Ambulatory BMSBuilding:B [place] 8 7 MS.[facility] Repository 07/20/2018/ [id number] Ambulatory BMSBuilding:B [place] 8 4 [facility] Repository 07/07/2018/ [id number] Ambulatory BMSBuilding:B [place] 8 6 [facility] Repository 07/06/2018 [id number] [place] 3 [facility] ing:RAD Repository 07/03/2018 [id number] Ambulatory [place] Fernandez 6 [facility] ing:LAB.FUTUR Repository E 04/30/2018 [id number] Ambulatory Fernandez [place] 4 [facility] ing:MTLAB Repository 04/30/2018 [id number] Ambulatory [place] 1 [facility] ing:RAD.FUTUR Repository E 2018 [id number] Ambulatory Fernandez [place] 9 [facility] ing:OPBI Repository 01/12/2018 [id number] Ambulatory Fernandez [place] 6 [facility] ing:LABSPEC Repository 01/07/2018 [id number] Ambulatory Fernandez [place] 0 [facility] ing:LAB Repository PAYERS PAYERS ENCOUNTER GUARANTOR PAYER SUBSCRIBER SOURCE 11/04/2018 ASTRID A Primary ASTRID A [place] [id number] [facility] YAHIROB: [facility] Number: [id number] [id number] Repository [address]Jva: (330) Date:3014-99-25[address] () [id number] CHINO ESTRELLA [address]XX: 11/04/2018 Secondary NOT GIVENUNK [place] Insurance:SELF PAY [facility] Number: Effective Repository Date:2018-09-01 10/01/2018 ASTRID A Primary ASTRID A [place] [id number] Insurance:AETNACaryn ROBBINAROB: [facility] Number: [id number], [place] [id number] Repository [address]Pux: (330) Date:6084-09-86KZ [address] () [id number] [place] [address]NM: 10/01/2018 Secondary NOT GIVENUNK [place] Insurance:SELF PAY [facility] Number: Effective Repository Date:2018-09-18 09/25/2018 ASTRID A Primary ASTRID [place] [id number] Insurance:AETNAPolicy ROBBINSDOB: [place] Number: [id number], [place] [id number] Repository [address]Dbs: (330) Date:4130-35-38JC [phone] () 514886JLCHINO KNAPP [address]DS: 09/25/2018 Secondary NOT GIVENUNK [place] Insurance:SELF PAY [facility] Number: Effective Repository Date:2018-09-25 09/01/2018 ASTRID A Primary ASTRID Beebe [place] [id number] Insurance:AETNAPolicy ROBBINSDOB: [facility] Number: [id number], [place] [id number] Repository [address]Med: (330) Date:3930-92-77BM [phone] (HP) 608636DKCHINO KNAPP [address]HC: 09/01/2018 Secondary NOT GIVENUNK [place] Insurance:SELF PAY [facility] Number: Effective Repository Date:2018-09-01 08/19/2018 ASTRID A Primary ASTRID A [place] [id number] Insurance:AETNAPolicy ROBBINSDOB: [facility] Number: [id number], [place] [id number] Repository [address]Zza: (330) Date:8484-51-42LD [phone] () 929211QDCHINO KNAPP [address]NU: 08/19/2018 Secondary NOT GIVENUNK [place] Insurance:SELF PAY [facility] Number: Effective Repository Date:2018-07-15 08/19/2018 ASTRID A Primary ASTRID A [place] [id number] Insurance:AETNAPolicy ROBBINSDOB: Community [place] Number: [id number], [place] [id number] Repository [address]Qcr: (330) Date:3878-10-08AH [phone] () [id number] KNAPP [address]ZR: 08/19/2018 Secondary NOT GIVENUNK [place] Insurance:SELF PAY [facility] Number: Effective Repository Date:2018-08-19 07/20/2018 ASTRID A Primary ASTRID A [place] [id number] Insurance:AETNAPolicy ROBBINSDOB: [facility] [place] Number: [id number], [place] [id number] Repository [address]Fnl: (330) Date:9755-75-70MY [phone] () [id number] [address]MG: 07/20/2018 Secondary NOT GIVENUNK [place] Insurance:SELF PAY [facility] Number: Effective Repository Date:2018-07-20 07/07/2018 ASTRID A Primary ASTRID A [place] [id number] Insurance:AETNAPolicy ROBBINSDOB: [place] Number: [id number], [place] [id number] Repository [address]Peg: (330) Date:5320-83-48IN [address] () [id number] [place] [address]NR: 07/07/2018 Secondary NOT GIVENUNK [place] Insurance:SELF PAY [facility] Number: Effective Repository Date:2018-07-07 07/06/2018 ASTRID A Primary ASTRID A [place] [id number] Insurance:AETNAPolicy ROBBINSDOB: [place] Number: [id number], [place] [id number] Repository [address]Tox: (330) Date:0272-14-63YV [address] (HP) [id number] CHINO ESTRELLA [address]NB: 07/06/2018 Secondary NOT GIVENUNK [place] Insurance:SELF PAY [facility] Number: Effective Repository Date:2018-06-29 07/03/2018 Astrid Beebe Primary Astrid Beebe [place] [id number] Insurance:AETNAPolicy RobbinsDOB: Community [place] Number: [id number] [id number] Repository [address]Snw: (330) Date:2238-35-98KJ [address] (HP) [id number] [place] ESTRELL[place] [address]CN: 07/03/2018 Secondary NOT GIVENUNK [place] Insurance:SELF PAY [facility] Number: Effective Repository Date:2018-07-02 04/30/2018 Astrid A Primary Astrid Beebe [place] [id number] Insurance:AETNAPolicy RobbinsDOB: Community [place] Number: [id number] [id number] Repository [address]Bpb: (330) Date:2233-14-67OC [address] () [id number] [place] ESTRELL[place] [address]HK: 04/30/2018 Secondary NOT GIVENUNK [place] Insurance:SELF PAY [facility] Number: Effective Repository Date:2018-04-30 04/30/2018 Astrid A Primary Astrid A [place] [id number] Insurance:AETNAPolicy RobbinsDOB: Community [place] Number: [id number] [place], [place] [id number] Repository [address]Cle: (330) Date:5355-33-79RI [address] (HP) [id number] [place]INO ESTRELL[place] [address]EO: 04/30/2018 Secondary NOT GIVENUNK [place] Insurance:SELF PAY [facility] Number: Effective Repository Date:2018-04-30 2018 Astrid A Primary Astrid Presley [id number] Insurance:AETNAPolicy RobbinsDOB: Community [place] Number: [id number] [place] [id number] Repository [address]Hsl: Date:0272-25-52UN [phone] [id number] KNAPP2 () [address]JZ: 2018 Secondary NOT GIVENUNK [place] Insurance:SELF PAY [facility] Number: Effective Repository Date:2018-01-12 01/12/2018 Astrid Beebe Primary Astrid Chenoster [id number] Insurance:AETNAPolicy RobbinsDOB: Community [place] Number: [id number] [place], [place] [id number] Repository [address]Ijq: Date:9981-35-44WK [phone] [id number] KNAPP2 () [address]UJ: 01/12/2018 Secondary NOT GIVENUNK [place] Insurance:SELF PAY [facility] Number: Effective Repository Date:2018-01-12 01/07/2018 Astrid Beebe Primary Astrid Presley [id number] Insurance:AETNAPolicy RobbinsDOB: [facility] [place] Number: [id number] [place] [id number] Repository [address]Gru: Date:1764-04-25HT [phone] [id number] KNAPP2 () [address]KZ: 01/07/2018 Secondary NOT GIVENUNK [place] Insurance:SELF PAY [facility] Number: Effective Repository Date:2018-01-07
== END ==
PROVIDERS: Family Provider Family Medicine; PCP Family Medicine; Referring Provider Internal Medicine Gastroenterology; Visit Provider Internal Medicine Gastroenterology
DX: K58.0 Irritable bowel syndrome with diarrhea (principal); R19.7 Diarrhea, unspecified
CPT/HCPCS: 36415; 82784; 83516; 86255

== ENCOUNTER 2018-12-25 15:00 | Outpatient (RCR) | payer OTHER, SELFPAY ==
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
--- NOTE | 2018-12-25 15:33 | HP.PTDCSUM ---
HP - PT D/C Summary It has been my pleasure to treat RITCHIE DUMONT under orders from Nkechi Shearer DO, for the diagnosis of R rot cuff repair - 08/19/18 for a total of 17 visit(s). Discharge Date: Please see the following information for a summary of their discharge status. - Subjective Subjective: Still sore at night - Pain R shoulder Pain Intensity (Out of 10): 0 - Overall Improvement % Improvement: 80 - Objective Objective/Function: R shoulder pain ranges 0-5/10. R shoulder ROM: flex= 150, abd= 120, ER= 50, IR is minimally limited. R shoulder MMT: 4/5 throughout. I with HEP. Rx goals achieved - Goals Goal 1:: Decrease R shoulder pain x 50% to aid with sleep Goal 2:: Increase R shoulder ROM flexion and abd x 50 degrees to aid with IADL's Goal 3:: Increase R shoulder strength x 1 grade to aid with RTW without limitations Goal 4:: I with HEP - Plan Plan: Discharge - D/C Information If there are questions or concerns regarding this patient's physical therapy, please feel free to call me at [phone]. Thank you for the referral of this patient. Sincerely, Yazan Hardy, PT, ATC
== END 2018-12-25 17:00 | disposition home or self-care (01) ==
LOC: PT 15:00
PROVIDERS: Family Provider Family Medicine; PCP Family Medicine; Referring Provider Orthopaedic Surgery; Visit Provider Orthopaedic Surgery
DX: Z98.890 Other specified postprocedural states (principal)
CPT/HCPCS: 97110; 97140; 97162; 97530

== ENCOUNTER → 2018-12-31 05:43 | Outpatient (CLI) | payer OTHER, SELFPAY ==
[2018-12-31 09:00] LABS: Hemoglobin A1c 6.8 % (4.2-6.3)
[2018-12-31 09:07] LABS: Anion Gap 8 (5-15); BUN 15 mg/dL (7-18); BUN/Creat Ratio 18.1 RATIO (10-20); Calcium,Total 9.1 mg/dL (8.5-10.1); Chloride 105 mmol/L (98-107); Cholesterol 111 mg/dL (200); Creatinine, Serum 0.83 mg/dL (0.55-1.02); EST Glomerular Filtration Rate 74 mL/min (>60); Est Glom Filt Rate - Afr Amer 90 mL/min (>60); Glucose 129 mg/dL (74-106); High Density Lipoprotein 54 mg/dL; Potassium 4.1 mmol/L (3.5-5.1); Sodium Level 142 mmol/L (136-145); Thyroid Stim Hormone (TSH) 1.94 uIU/mL (0.358-3.74); Triglycerides 68 mg/dL; Very Low Density Lipoprotein 14 mg/dL (5-40)
== END ==
PROVIDERS: Family Provider Family Medicine; PCP Family Medicine; Referring Provider Family Medicine; Visit Provider Family Medicine
DX: E11.9 Type 2 diabetes mellitus without complications (principal); E03.9 Hypothyroidism, unspecified; E78.00 Pure hypercholesterolemia, unspecified
CPT/HCPCS: 36415; 80048; 80061; 83036; 84443

== ENCOUNTER → 2019-02-10 06:57 | Outpatient (CLI) | payer OTHER, SELFPAY ==
--- NOTE | 2019-02-10 06:59 | BI_ITS ---
MAMMOGRAPHY - BILATERAL SCREENING REASON FOR EXAM: Female, 64 years old. Routine annual screening examination. PERTINENT HISTORY: Non-contributory. TECHNIQUE: Digital bilateral breast leon (3D mammographic acquisition) in the CC and MLO projections. 2-D mediolateral oblique (MLO) and craniocaudad (CC) views of both breasts were obtained. CAD: Full Field Digital Mammography with Computer Added Detection was performed. COMPARISON: Comparison is made with prior study dated February 09, 2018 and February 05, 2017. FINDINGS: Breast Composition: There are scattered areas of fibroglandular density. There are no dominant masses or suspicious calcifications. Stable small benign-appearing bilateral axillary lymph nodes. No other significant abnormalities are identified. There has been no significant change since the prior study. BI/SCREENING MAMM (CAD), BILAT IMPRESSION: Stable bilateral screening mammogram. Yearly follow-up mammogram recommended. (A) ASSESSMENT CATEGORY: BIRADS Category 2: Benign. A letter regarding these results will be sent to the patient by the facility within 30 days. Approximately 10% of breast cancers are not detected by mammography. A normal mammogram should not delay biopsy of a clinically suspicious abnormality. [id number] Electronically Signed: Jose Carr, at 11:02 EDT , Service support ,
== END ==
PROVIDERS: Family Provider Family Medicine; PCP Family Medicine; Referring Provider Family Medicine; Visit Provider Family Medicine
DX: Z12.31 Encounter for screening mammogram for malignant neoplasm of breast (principal)
CPT/HCPCS: 77063; 77067

== ENCOUNTER → 2019-06-17 06:13 | Outpatient (CLI) | payer OTHER, SELFPAY ==
[2019-06-17 07:59] LABS: AST(SGOT) 24 U/L (15-37); Alanine Aminotransfer ALT/SGPT 34 U/L (13-56); Albumin, Serum 3.9 g/dL (3.2-5.0); Alkaline Phosphatase 83 U/L (45-117); Anion Gap 5 (5-15); BUN 14 mg/dL (7-18); BUN/Creat Ratio 15.2 RATIO (10-20); Calcium,Total 8.8 mg/dL (8.5-10.1); Chloride 103 mmol/L (98-107); Creatinine, Serum 0.92 mg/dL (0.55-1.02); EST Glomerular Filtration Rate 66 mL/min (>60); Est Glom Filt Rate - Afr Amer 79 mL/min (>60); Globulin 4.1 g/dL (2.2-4.2); Glucose 168 mg/dL (74-106); Potassium 3.6 mmol/L (3.5-5.1); Sodium Level 140 mmol/L (136-145)
[2019-06-17 08:13] LABS: Hemoglobin A1c 6.8 % (4.2-6.3)
== END ==
PROVIDERS: Family Provider Family Medicine; PCP Family Medicine; Referring Provider Family Medicine; Visit Provider Family Medicine
DX: K76.9 Liver disease, unspecified (principal); E11.9 Type 2 diabetes mellitus without complications
CPT/HCPCS: 36415; 80053; 83036

== ENCOUNTER → 2019-07-12 14:10 | Outpatient (CLI) | payer OTHER, SELFPAY ==
--- NOTE | 2019-07-12 14:22 | RAD_ITS ---
STUDY: X-RAY - ABDOMEN/PELVIS REASON FOR EXAM: Female, 64 years old. Kidney stone TECHNIQUE: Two AP supine views of the abdomen and pelvis. COMPARISON: 03/05/2018 FINDINGS: There is no bowel obstruction. There is air and stool to the level of the rectum. There is a 3 mm calcification overlying the right renal shadow. This may represent a kidney. The visualized osseous structures are within normal limits. RAD/Abdomen Single View IMPRESSION: 3 mm calcification overlying the right renal shadow. This may represent a kidney stone. No bowel obstruction. Electronically Signed: Wallace Lemus, at 16:02 EDT Tel , Service support ,
== END ==
PROVIDERS: Family Provider Family Medicine; PCP Family Medicine; Referring Provider Urology; Visit Provider Urology
DX: N20.0 Calculus of kidney (principal)
CPT/HCPCS: 74018

== ENCOUNTER 2019-07-30 08:52 | Day surgery (SDC) | payer OTHER, SELFPAY ==
[2019-07-30 09:23] VITALS: BP 103/61; PULSE 74; RESP 16; TEMP 36.9; O2SAT 98; BMI 37.0
[2019-07-30] MEDS: Lactated Ringers 1,000 ML 100 ML IV (09:35)
[2019-07-30 09:50] LABS: Bedside Glucose 126 mg/dL (70-110)
--- NOTE | 2019-07-30 11:28 | HP.PCM_ITS ---
History and Physical Date of Admission: 07/30/19 Patient returns, 64-year-old female with history of kidney stones today and KUB we reviewed it and she does have a 6 mm stone in the upper pole of the right kidney. On prior KUB appear to be flow smaller than this is getting larger. We talked about the options of management one would be observation with possible treatment of the stone become symptomatic, data shows that is about 30% chance of having. Other option would be shockwave lithotripsy probably will not need a stent. ALLERGIES: Sulfa - Anaphylaxis MEDICATIONS: Allopurinol Advil Aspirin 81 mg tablet,chewable Atenolol Atorvastatin Calcium Calcium Cetirizine Hcl Klor-Con M20 Levothyroxine Sodium Lexapro Magnesium Oxide 400 mg (241.3 mg magnesium) tablet Metformin Hcl Motofen 1 mg-0.025 mg tablet Multivitamin Pantoprazole Sodium Pennsaid Plaquenil Viberzi Vitamin D Notes: Has not had the pneumonia vaccine PSH: Cysto Remove Stent FB Sim - 2014 Cysto Uretero Lithotripsy - 2014 Cysto/Uretero W/Lithotripsy - 2014 Cystoscopy Ureteroscopy, Left - 2004 Renal ESWL - 2015, 2014, Bilateral - 2008, 1995 NON- PSH: Bilateral Tubal Ligation Colonoscopy - about 2016 Patient not documented to have received pneumococcal vaccination PMH: Calculus of kidney (Stable), Bilateral - 07/06/2018, - 2016, - 2015, - 2014, - 2014, - 2014, - 2012 Calculus of kidney with calculus of ureter - 2016, - 2015, - 2015, - 2015 NON- PMH: Abdominal tenderness, unspecified site - 2012 Diarrhea, unspecified Essential (primary) hypertension Gout, unspecified Heart disease, unspecified Hypothyroidism, unspecified Joint disorder, unspecified Magnesium deficiency Obesity, unspecified Pure hypercholesterolemia, unspecified Type 2 diabetes mellitus with unspecified complications Vitamin D deficiency, unspecified Immunizations: None FAMILY HISTORY: None SOCIAL HISTORY: Marital Status: Preferred Language: Bermudian; Ethnicity: Not Or ; Race: White Current Smoking Status: Patient has never smoked. Tobacco Use Assessment Completed: Used Smokeless in last 30 days? Smoking cessation counseling was provided. Does not use smokeless tobacco. Has never drank. Does not use drugs. Does not drink caffeine. Has not had a blood transfusion. REVIEW OF SYSTEMS: Constitutional: Patient denies fever, chills, weight loss, and weight gain. Genitourinary: Patient reports history of stones. Patient denies bedwetting, painful urination, urinary retention, weak stream/scanty, frequent urination, difficulty starting stream, leakage of urine, blood in the urine, get up at night to void, and frequent uti's. VITAL SIGNS: 07/12/2019 02:52 PM Weight 205 lb / 92.99 kg Height 62 in / 157.48 cm BP 120/78 mmHg BMI 37.5 kg/m? - BMI Counseling was provided. MULTI-SYSTEM PHYSICAL EXAMINATION: Constitutional: Well-nourished. No physical deformities. Normally developed. Good grooming. Neck: Neck symmetrical, not swollen. Normal tracheal position. Respiratory: No labored breathing, no use of accessory muscles. Cardiovascular: Normal temperature, normal extremity pulses, no swelling, no varicosities. Lymphatic: No enlargement of neck, axillae, groin. Skin: No paleness, no jaundice, no cyanosis. No lesion, no ulcer, no rash. Neurologic / Psychiatric: Oriented to time, oriented to place, oriented to person. No depression, no anxiety, no agitation. Gastrointestinal: Obese abdomen. No mass, no tenderness, no rigidity. Eyes: Normal conjunctivae. Normal eyelids. Ears, Nose, Mouth, and Throat: Left ear no scars, no lesions, no masses. Right ear no scars, no lesions, no masses. Nose no scars, no lesions, no masses. Normal hearing. Normal lips. Musculoskeletal: Normal gait and station of head and neck. PAST DATA REVIEWED: Source Of History: Patient PROCEDURES: Urinalysis - 30098 Dipstick Dipstick Cont'd Specimen: Voided Blood: Neg Appearance: Clear pH: 5.0 Color: Yellow Protein: Neg Glucose: Normal Urobilinogen: Neg Bilirubin: Neg Nitrites: Neg Ketones: Neg Leukocyte Esterase: Neg Specific [place]: 1.005 ASSESSMENT: ICD-10 Details 1 : Calculus of kidney - N20.0 Right PLAN: Document Letter(s): Created for Patient: Clinical Summary Notes: 64-year-old female with a stone in the upper pole the right kidney plan to proceed with shockwave lithotripsy we will plan not the stent this a be set up in the near future shop the hold her aspirin prior to the procedure. Other option discussed with the patient was elective observation of the stone and treatment of becomes more systematic but she wants to have a treated she's plan to do some traveling.
--- NOTE | 2019-07-30 11:32 | DCINST_ITS ---
Discharge Diet: Light diet - advance as tolerated Discharge Activity: Return to Normal Activity Call your doctor if your incision/area has: Sudden Increased Bleeding Call your doctor if you observe: Fever of 101 or Higher Suture Line Care: Avoid Pulling/Pushing, Avoid Pinching/Bending Instructions: Shock Wave Lithotripsy Allergies/Adverse Reactions: Allergies Sulfa (Sulfonamide Antibiotics) Allergy (Verified 07/30/19 09:22) Rash Medications to take at Discharge Allopurinol [Zyloprim] 300 mg PO DAILY 03/01/15 Aspirin [Aspirin, Baby] 81 mg PO DAILY@0800 03/01/15 Atenolol [Tenormin (beta Yessi)] 25 mg PO BID 03/01/15 Atorvastatin Calcium [Lipitor] 10 mg PO QHS 03/01/15 Cholecalciferol (VIT D3) [Vitamin D] 2,000 unit PO DAILY 03/01/15 Hydrochlorothiazide [Hctz] 25 mg PO DAILY 03/01/15 Levothyroxine [Synthroid] 75 mcg PO DAILY 03/01/15 Multivitamins,Therapeutic [Multivitamin] 1 tablet PO DAILY 03/01/15 metFORMIN HCl [Glucophage] 1,000 mg PO BIDCM 03/01/15 Cetirizine HCl [All Day Allergy] 10 mg PO DAILY 03/15/15 Magnesium Oxide [Mag-Ox 400] 400 mg PO DAILY 03/05/16 Potassium Chloride [Klor-Con M20] 15 meq PO BID 03/05/16 Calcium Carbonate [Calcium] 1,000 mg PO DAILY 08/12/18 Diclofenac Sodium [Pennsaid] 112 gm TP PRN PRN 08/12/18 Difenoxin HCl/Atropine Sulfate [Motofen Tablet] 1 each PO Q6H 08/12/18 Hydroxychloroquine Sulfate [Plaquenil] 200 mg PO BID 08/12/18 Escitalopram Oxalate [Lexapro] 10 mg PO DAILY 07/23/19 Hydrocodone Bitart/Apap 5-325 [[place] 5MG-325MG] 1 tab PO Q4H PRN PRN 5 Days #20 tab 07/30/19 The following prescriptions were given: Hydrocodone Bitart/Apap 5-325 [[place] 5MG-325MG] 1 tab PO Q4H PRN PRN 5 Days #20 tab PRN Reason: Pain Prescription Printed Primary Care Physician: Mike Russell MD [Primary Care Provider] - Test Results: Test results from this visit will be discussed in further detail at your follow- up appointment, if applicable. Please Follow Up With: Panfilo Carney MD When: in 2 weeks, please call to make an appointment.
[2019-07-30] MEDS: Cefazolin 2 GM in 0.9% Normal Saline 100 ML IV (12:08)
--- NOTE | 2019-07-30 12:56 | OP.PCM_ITS ---
Report of Operation Date of Procedure: 07/30/19 Pre-Operative Diagnosis: Right kidney stone Post-Operative Diagnosis: Same Surgery/Procedure Performed:: Right extracorporeal shockwave lithotripsy Description of Surgical Findings:: 64-year-old female was taken back to the operating room at the smooth induction of general anesthesia he was placed supine on the table we found the stone in the upper pole of the right kidney is about a 6 mm stone we then proceeded with shockwave lithotripsy. A total of 3000 shockwaves were delivered to the stone at a rate of 90 power no more than 5 kV. At the end of the treatment cycle we monitored the stone during the entire treatment at first to start to break a little bit and he slowly increased the power and then as we went along the stone looked like it fractured and 2 through 3 fragments could still be visible on x- ray but it looked like the stone did fracture. At that point decided not to leave the stent we will continue with observation sips of passing fragments patient anesthetic was reversed taken back to PACU good condition plan to see her back in a few weeks with a x-ray. Type of Anesthesia:: General - Admit VTE Documentation VTE Present on Admission: No VTE Mechan Device Prophylaxis: SCD's
[2019-07-30 13:02] VITALS: BP 103/61; BP 124/67; PULSE 79; RESP 16; TEMP 36.2; O2SAT 95
[2019-07-30 13:15] VITALS: BP 103/61; BP 120/60; PULSE 73; RESP 16; O2SAT 95
[2019-07-30 13:34] VITALS: BP 103/61; BP 120/59; PULSE 76; RESP 16; TEMP 36.4; O2SAT 95
[2019-07-30] MEDS: Ketorolac 15 MG/ML Vial IV (13:38)
[2019-07-30 14:13] VITALS: BP 103/61
== END 2019-07-30 14:45 | disposition home or self-care (01) ==
LOC: SDC 08:55 → AC 09:01
PROVIDERS: Family Provider Family Medicine; PCP Family Medicine; Referring Provider Urology; Visit Provider Urology
PROC: (CPT 50590; principal; 2019-07-30 11:15)
DX: N20.0 Calculus of kidney (principal); E11.9 Type 2 diabetes mellitus without complications; I10 Essential (primary) hypertension; E03.9 Hypothyroidism, unspecified; M10.9 Gout, unspecified; E55.9 Vitamin D deficiency, unspecified; E66.9 Obesity, unspecified; Z68.37 Body mass index [BMI] 37.0-37.9, adult; Z79.82 Long term (current) use of aspirin; Z79.84 Long term (current) use of oral hypoglycemic drugs; Z79.899 Other long term (current) drug therapy; Z88.2 Allergy status to sulfonamides; Z87.442 Personal history of urinary calculi
CPT/HCPCS: 00873; 50590; 82962; J7120; J2405

== ENCOUNTER → 2019-08-17 12:59 | Outpatient (CLI) | payer OTHER, SELFPAY ==
[2019-07-30 09:23] VITALS: BMI 37.0
--- NOTE | 2019-08-17 13:00 | RAD_ITS ---
STUDY: X-RAY - ABDOMEN/PELVIS REASON FOR EXAM: Female, 64 years old. Kidney stones TECHNIQUE: Single AP view of the abdomen / pelvis. COMPARISON: 07/12/2019. FINDINGS: 4 mm calcific density overlying the right upper pole kidney may represent a renal stone. No evidence for obstruction or free air. Moderate stool burden. The osseous structures are unremarkable. RAD/Abdomen Single View IMPRESSION: Reidentified unchanged 4 mm calcific density overlying the right upper pole kidney may represent a renal stone. Electronically Signed: Soto Lambert, at 14:10 EST Tel , Service support ,
== END ==
PROVIDERS: Family Provider Family Medicine; PCP Family Medicine; Referring Provider Urology; Visit Provider Urology
DX: N20.0 Calculus of kidney (principal)
CPT/HCPCS: 74018

== ENCOUNTER → 2019-11-10 12:40 | Outpatient (CLI) | payer OTHER, SELFPAY | PROVIDERS: PCP Family Medicine; Referring Provider Urology; Visit Provider Urology | DX: N20.0 Calculus of kidney (principal) | CPT/HCPCS: 82360 ==

== ENCOUNTER → 2019-12-22 06:04 | Outpatient (CLI) | payer OTHER, SELFPAY ==
[2019-12-22 07:55] LABS: Microalbumin:Creatinine Ratio 5.6 mg/g CRE (<30 mg/g CRE)
[2019-12-22 08:32] LABS: ALB/GLOB Ratio 0.9 RATIO (0.9-2.4); AST(SGOT) 27 U/L (15-37); Alanine Aminotransfer ALT/SGPT 38 U/L (13-56); Albumin, Serum 3.7 g/dL (3.2-5.0); Alkaline Phosphatase 78 U/L (45-117); Anion Gap 6 (5-15); BUN 17 mg/dL (7-18); BUN/Creat Ratio 19.6 RATIO (10-20); Calcium,Total 8.9 mg/dL (8.5-10.1); Chloride 104 mmol/L (98-107); Cholesterol 128 mg/dL (200); Creatinine, Serum 0.87 mg/dL (0.55-1.02); EST Glomerular Filtration Rate 70 mL/min (>60); Est Glom Filt Rate - Afr Amer 85 mL/min (>60); Globulin 4.1 g/dL (2.2-4.2); Glucose 158 mg/dL (74-106); High Density Lipoprotein 66 mg/dL; Protein, Total 7.8 g/dL (6.4-8.2); Sodium Level 140 mmol/L (136-145); Thyroid Stim Hormone (TSH) 2.65 uIU/mL (0.358-3.74); Triglycerides 74 mg/dL; Very Low Density Lipoprotein 15 mg/dL (5-40)
[2019-12-22 08:33] LABS: Hemoglobin A1c 7.1 % (4.2-6.3)
== END ==
PROVIDERS: PCP Family Medicine; Referring Provider Family Medicine; Visit Provider Family Medicine
DX: K76.9 Liver disease, unspecified (principal); E11.9 Type 2 diabetes mellitus without complications; E03.9 Hypothyroidism, unspecified; E78.00 Pure hypercholesterolemia, unspecified
CPT/HCPCS: 36415; 80053; 80061; 82043; 82570; 83036; 84443

== ENCOUNTER → 2020-01-25 09:48 | Outpatient (CLI) | payer OTHER, SELFPAY ==
--- NOTE | 2020-01-25 | TOBX_PTH ---
PATIENT: RITCHIE DUMONT LOC: [facility] U#:[id number] AGE/SX: 70/F ROOM: RE01/25/[address]: Dr. Yang Craig DDS : 1955 BED: DIS: SPEC #: [id number] RECD: 01/25/20 12:23 STATUS: CHITRA ZAY #: [id number] RORO: 01/25/20 00:[address]: Yang Craig DEPT: SURGICAL PATHOLOGY RECD BY: Medhat Bo Tissues: Tongue, NOS Procedures: Special Stain Group I Surgery Specimen Level IV GMS Stain (control) HEADER OPERATION: Tongue biopsy PRE-OP DIAGNOSIS: Six-month history, rule out SCCA TISSUE SUBMITTED: Right lateral tongue MICROSCOPIC DIAGNOSIS Right lateral tongue, biopsy: Squamous mucosa with acanthosis, hyperkeratosis and parakeratosis. Minimal subepithelial chronic inflammation. Negative for malignancy. Special stain for fungi is negative for organisms; matched control is appropriate. See comment. SJ:lori 01/26/20 COMMENT Clinical correlation and appropriate follow up are necessary. Rebiopsy is suggested if clinically indicated. Case has been reviewed in consultation with Dr. Lake who concurs with the above diagnosis. IDC:AM MICROSCOPIC DESCRIPTION Slides are reviewed. GROSS DESCRIPTION Received in fixative is one container labeled with the patient's name and designated tongue. The specimen consists of a piece of cuello mucosal tissue measuring 0.6 x 0.4 x 0.2 cm. The specimen is inked, bisected and submitted entirely in one cassette. / CARLY:lori 01/25/20 TC:5 CPT: 67492, [id number]
== END ==
PROVIDERS: Referring Provider Dentist Oral and Maxillofacial Surgery; Visit Provider Dentist Oral and Maxillofacial Surgery
DX: K14.3 Hypertrophy of tongue papillae (principal); K14.0 Glossitis
CPT/HCPCS: 88305; 88312

== ENCOUNTER → 2020-02-14 07:04 | Outpatient (CLI) | payer OTHER, SELFPAY ==
--- NOTE | 2020-02-14 07:07 | BI_ITS ---
MAMMOGRAPHY - BILATERAL SCREENING REASON FOR EXAM: Female, 65 years old. Routine annual screening examination. PERTINENT HISTORY: Non-contributory. TECHNIQUE: Digital bilateral breast kenyetta (3D mammographic acquisition) in the CC and MLO projections. 2-D mediolateral oblique (MLO) and craniocaudad (CC) views of both breasts were obtained. CAD: Full Field Digital Mammography with Computer Added Detection was performed. COMPARISON: Comparison is made with prior study dated February 10, 2019 and February 10, 2008. FINDINGS: Breast Composition: There are scattered areas of fibroglandular density. There are no dominant masses or suspicious calcifications. Stable benign-appearing bilateral axillary lymph nodes. No other significant abnormalities are identified. There has been no significant change since the prior study. BI/SCREEN MAMM (CAD) W/KENYETTA BILAT IMPRESSION: Stable bilateral screening mammogram. Yearly follow-up mammogram recommended. (A) ASSESSMENT CATEGORY: BIRADS Category 2: Benign. A letter regarding these results will be sent to the patient by the facility within 30 days. Approximately 10% of breast cancers are not detected by mammography. A normal mammogram should not delay biopsy of a clinically suspicious abnormality. [id number] Electronically Signed: Jose Carr, at 8:31 EDT , Service support ,
== END ==
PROVIDERS: PCP Family Medicine; Referring Provider Family Medicine; Visit Provider Family Medicine
DX: Z12.31 Encounter for screening mammogram for malignant neoplasm of breast (principal)
CPT/HCPCS: 77063; 77067

== ENCOUNTER → 2020-08-24 08:26 | Outpatient (CLI) | payer OTHER, SELFPAY ==
--- NOTE | 2020-08-24 08:28 | RAD_ITS ---
STUDY: X-RAY - ABDOMEN/PELVIS REASON FOR EXAM: Female, 65 years old. PREVIOUS STONES, YEARLY CHECK UP. NO CURRENT ISSUES TECHNIQUE: Two AP supine views of the abdomen and pelvis. COMPARISON: None. FINDINGS: Normal visualized lung bases. There is an unremarkable bowel gas pattern. There is no demonstrated free abdominal air. Bilateral kidney stones are noted the largest measures 7 mm. The visualized liver, spleen are grossly normal in size and morphology. Normal soft tissue structures. Normal visualized osseous structures. RAD/Abdomen Single View IMPRESSION: Bilateral kidney stones are noted the largest measures 7 mm. Electronically Signed: Rochelle Camp, at 0:42 EST Tel , Service support ,
== END ==
PROVIDERS: Referring Provider Urology; Visit Provider Urology
DX: N20.0 Calculus of kidney (principal)
CPT/HCPCS: 74018

== ENCOUNTER → 2021-01-22 13:39 | Outpatient (CLI) | payer OTHER, SELFPAY ==
[2021-01-26 13:43] LABS: HPV HC, High Risk N
== END ==
PROVIDERS: Visit Provider Family Medicine
DX: Z12.4 Encounter for screening for malignant neoplasm of cervix (principal)
CPT/HCPCS: 87624; 88175; G0145

== ENCOUNTER → 2021-03-26 09:16 | Outpatient (CLI) | payer OTHER, SELFPAY ==
--- NOTE | 2021-03-26 09:35 | US_ITS ---
STUDY: ABDOMINAL ULTRASOUND - RIGHT UPPER QUADRANT REASON FOR VISIT: Female, 66 years old FATTY LIVER . Elevated liver enzymes. TECHNIQUE: Ultrasound evaluation of the right upper quadrant was performed with real-time and static rawls-scale imaging. TECHNICAL QUALITY: Adequate. COMPARISON: Comparison is made with prior study 08/23/2011. FINDINGS: Liver: The liver is enlarged and measures 21.6 cm. There is increased echogenicity consistent with fatty infiltration. The bile ducts are within normal limits. There is hepatic color flow. The direction of portal flow is hepatopetal. There is no demonstrated mass lesion. Gallbladder: Normal distended gallbladder. The gallbladder wall measures 2.0 mm. There is a negative sonographic Deutsch''s sign. There is no pericholecystic fluid. There are no gallstones. Common Bile Duct (C.B.D.): The common bile duct measures 4.0 mm. Pancreas: Normal size of the head, body and tail of the pancreas. There is normal echogenicity of the pancreas. There is no demonstrated pancreatic mass or cyst. Right Kidney: Normal size of the right kidney. The right kidney measures 13 cm x 5.4 cm x 5.3 cm. Normal renal cortex. The right cortex measures 1.2 cm. 2 cysts are seen. The larger measures 1.5 cm x 1.8 cm. There is no right hydronephrosis. Suspect 2 tiny nonobstructive right intrarenal calculi. US/Abdomen Limited IMPRESSION: Hepatomegaly and diffuse fatty infiltration of the liver. Electronically Signed: Jose Carr MD at 13:05 EDT , Service support ,
[2021-03-26 10:37] LABS: Hemoglobin A1c 7.1 % (3.8-5.6)
[2021-03-26 10:41] LABS: Microalbumin,Random Urine 8.3 mg/L (NO RANGE EST.); Microalbumin:Creatinine Ratio 4.3 mg/g CRE (<30 mg/g CRE)
[2021-03-26 10:42] LABS: AST(SGOT) 39 U/L (15-37); Alanine Aminotransfer ALT/SGPT 51 U/L (13-56); Albumin, Serum 3.8 g/dL (3.2-5.0); Alkaline Phosphatase 70 U/L (45-117); Anion Gap 7 (5-15); BUN 13 mg/dL (7-18); BUN/Creat Ratio 15.2 RATIO (10-20); Calcium,Total 8.7 mg/dL (8.5-10.1); Chloride 103 mmol/L (98-107); Cholesterol 124 mg/dL (200); Creatinine, Serum 0.86 mg/dL (0.55-1.02); EST Glomerular Filtration Rate 71 mL/min (>60); Est Glom Filt Rate - Afr Amer 86 mL/min (>60); Globulin 3.7 g/dL (2.2-4.2); Glucose 185 mg/dL (74-106); High Density Lipoprotein 56 mg/dL; Potassium 3.9 mmol/L (3.5-5.1); Protein, Total 7.5 g/dL (6.4-8.2); Sodium Level 140 mmol/L (136-145); Thyroid Stim Hormone (TSH) 1.54 uIU/mL (0.358-3.74); Triglycerides 80 mg/dL; Very Low Density Lipoprotein 16 mg/dL (5-40)
[2021-03-27 05:07] LABS: HEPATITIS B SURFACE AG Negative (Negative); Hepatitis A AB, Total Negative (Negative); Hepatitis A IgM Antibody Negative (Negative); Hepatitis B Core AB IgM Negative (Negative); Hepatitis B Core Ab Total Negative (Negative); Hepatitis C Ab <0.1 s/co ratio (0.0-0.9)
[2021-03-27 11:14] LABS: Hep B Surface Antibodies Non Reactive (.)
== END ==
PROVIDERS: PCP Family Medicine; Referring Provider Family Medicine; Visit Provider Family Medicine
DX: E11.9 Type 2 diabetes mellitus without complications (principal); K76.0 Fatty (change of) liver, not elsewhere classified; E03.9 Hypothyroidism, unspecified
CPT/HCPCS: 36415; 76705; 80053; 80061; 82043; 82570; 83036; 84443; 86704; 86705; 86706; 86708; 86709; 86803; 87340

== ENCOUNTER → 2021-06-12 10:43 | Outpatient (CLI) | payer OTHER, SELFPAY ==
--- NOTE | 2021-06-12 10:44 | US_ITS ---
INDICATION: THYROID NODULE EXAMINATION: Ultrasound US Thyroid (eg thyroid, parathyroid, parotid) TECHNIQUE: Jackson scale and color doppler imaging was performed of the thyroid gland. COMPARISON: None. FINDINGS: RIGHT THYROID LOBE: The right lobe demonstrates unremarkable homogenous echogenicity, unremarkable vascularity, unremarkable size shape and configuration. No evidence of thyroid nodules. The right lobe of the thyroid gland is normal in size measuring 4.0 x 1.6 x 1.4 cm. LEFT THYROID LOBE: The left lobe demonstrates unremarkable homogenous echogenicity, unremarkable vascularity, unremarkable size shape and configuration. No evidence of thyroid nodules. The left lobe of the thyroid gland is normal in size measuring 3.1 x 1.2 x 0.7 cm. ISTHMUS: 0.2 cm. No thyroid nodules are present. US/Thyroid IMPRESSION: Negative thyroid ultrasound examination. Electronically Signed: Andrey Brown MD at 13:32 EDT Tel , Service support ,
== END ==
PROVIDERS: PCP Family Medicine; Referring Provider Family Medicine; Visit Provider Family Medicine
DX: E04.1 Nontoxic single thyroid nodule (principal)
CPT/HCPCS: 76536

== ENCOUNTER → 2021-06-29 15:11 | Outpatient (CLI) | payer OTHER, SELFPAY ==
--- NOTE | 2021-06-29 15:14 | RAD_ITS ---
STUDY: X-RAY - LEFT FOOT CLINICAL: Female, 66 years old. LFT HEEL PAIN TECHNIQUE: 3 view(s) of the foot. COMPARISON: None. FINDINGS: Normal talus, calcaneus, and tarsal bones. Normal visualized subtalar, talonavicular, calcaneocuboid, tarsal and tarsometatarsal articulations. Normal metatarsi. Normal metatarsophalangeal joint of the great toe. There is a bipartite tibial sesamoid. Normal interphalangeal joint of the great toe. Normal phalanges of the great toe. Normal second through fifth metatarsophalangeal joints. Normal interphalangeal joints and phalanges of the lesser toes. The soft tissue structures are unremarkable. RAD/Foot min 3 Views IMPRESSION: Normal x-ray examination of the foot. Electronically Signed: Panchito Evangelista MD at 11:06 EDT Tel , Service support ,
== END ==
PROVIDERS: PCP Family Medicine; Referring Provider Family Medicine; Visit Provider Family Medicine
DX: M79.672 Pain in left foot (principal)
CPT/HCPCS: 73630

== ENCOUNTER → 2021-08-27 14:00 | Outpatient (CLI) | payer OTHER, SELFPAY ==
--- NOTE | 2021-08-27 14:21 | RAD_ITS ---
STUDY: X-RAY - ABDOMEN/PELVIS REASON FOR EXAM: Female, 66 years old. Follow-up kidney stones. TECHNIQUE: Two AP supine views of the abdomen and pelvis. COMPARISON: 08/24/2020. FINDINGS: Normal visualized lung bases. There is an unremarkable bowel gas pattern. There is no demonstrated free abdominal air. The visualized liver, spleen and kidneys are grossly normal in size and morphology. There are no visualized left renal calculi. Question of a 3 mm calcification in the right kidney although this may be an overlying bowel. Normal soft tissue structures. Normal visualized osseous structures. RAD/Abdomen Single View IMPRESSION: Question small right renal calculus. The left renal calculi are no longer seen. Electronically Signed: Jeyson Perez DO at 23:24 EST Tel [phone], Service support ,
== END ==
PROVIDERS: PCP Family Medicine; Referring Provider Urology; Visit Provider Urology
DX: N20.0 Calculus of kidney (principal)
CPT/HCPCS: 74018

== ENCOUNTER 2021-11-20 10:48 | Outpatient (CLI) | payer BC, SELFPAY ==
--- NOTE | 2021-11-20 10:00 | TOBX_PTH ---
PATIENT: RITCHIE DUMONT LOC: [facility] U#:[id number] AGE/SX: 66/F ROOM: RE11/20/[address]: Dr. Yang Craig DDS : 1955 BED: DIS: 11/20/2021 SPEC #: [id number] RECD: 11/20/21 10:41 STATUS: CHITRA REGorge #: [id number] RORO: 11/20/21 10:[address]: Yang Craig DEPT: SURGICAL PATHOLOGY RECD BY: Irene Marie ENTERED: 11/20/21 11:58 SP TYPE: TONGUE BX OTHR DR: Dr. Mike Durham MD Tissues: Tongue, NOS Procedures: Special Stain Group I Surgery Specimen Level IV GMS Stain (control) HEADER OPERATION: Tongue biopsy PRE-OP DIAGNOSIS: See previous biopsy TISSUE SUBMITTED: Tongue MICROSCOPIC DIAGNOSIS Tongue, shave biopsy: Acanthosis, parakeratosis and focal mild to moderate epithelial atypia. Negative for malignancy. See comment. CARLY:lori 11/21/2021 COMMENT Mucosal surface show extensive bacterial colonization. Special stain for fungi is negative for organisms; matched control is appropriate. Please make reference to previous specimen ([id number]) right lateral tongue, biopsy with diagnosis of ?squamous mucosa with acanthosis, hyperkeratosis and parakeratosis and negative for malignancy.? Clinical correlation and appropriate follow up are necessary. MICROSCOPIC DESCRIPTION Slides are reviewed. GROSS DESCRIPTION Received in fixative is one container labeled with the patient's name and designated tongue. The specimen consists of a piece of cuello mucosal tissue measuring 1.3 x 0.7 cm and up to 0.1 cm in thickness. The mucosal surface shows cuello-white flecks. The specimen is inked, serially sectioned and submitted entirely in one cassette. / CARLY:lori 11/20/2021 TC:5 CPT: 50058, 06657
== END 2021-11-20 23:59 | disposition home or self-care (01) ==
LOC: LABSPEC 10:52
PROVIDERS: PCP Family Medicine; Visit Provider Dentist Oral and Maxillofacial Surgery
DX: K14.3 Hypertrophy of tongue papillae (principal)
CPT/HCPCS: 88305; 88312

== ENCOUNTER 2022-01-15 06:33 | Outpatient (CLI) | payer MEDICARE, OTHER, SELFPAY ==
[2022-01-15 07:18] LABS: Absolute Neutrophil Count 4.1 X10^3/uL (2.0-7.7); Basophil# 0.04 X10^3/uL; Basophil% 0.6 % (0-1); Eosinophil# 0.17 X10^3/uL; Eosinophils% 2.6 % (0-5); Hematocrit 42.3 % (37-47); Hemoglobin 13.8 g/dL (12.0-15.0); Lymphocyte % 25.8 % (19-41); Mean Corp Hgb Conc 32.6 g/dL (32-36); Mean Corpuscular Hgb 29.6 pg (27.0-32.0); Mean Corpuscular Volume 90.8 fL (81-99); Mean Platelet Vol. 10.2 fl (6.2-12.0); Monocyte# 0.57 X10^3/uL; Monocyte% 8.6 % (0-10); NRBC Flagged by Analyzer 0 % (0-5); Neutrophil % 62.1 % (47-70); Platelet Count 226 K/mm3 (150-450); RBC Distribution Width CV 13.2 % (11.6-14.6); RBC Distribution Width SD 43.1 fl (35.1-43.9); Red Blood Count 4.66 M/mm3 (4.2-5.4); White Blood Count 6.6 K/mm3 (4.4-11.0)
[2022-01-15 08:01] LABS: ALB/GLOB Ratio 0.9 RATIO (0.9-2.4); AST(SGOT) 22 U/L (15-37); Alanine Aminotransfer ALT/SGPT 36 U/L (13-56); Albumin, Serum 3.7 g/dL (3.2-5.0); Alkaline Phosphatase 80 U/L (45-117); Anion Gap 6 (5-15); BUN 19 mg/dL (7-18); BUN/Creat Ratio 19.3 RATIO (10-20); Calcium,Total 8.9 mg/dL (8.5-10.1); Chloride 102 mmol/L (98-107); Cholesterol 138 mg/dL (200); Creatinine, Serum 0.99 mg/dL (0.55-1.02); EST Glomerular Filtration Rate 60 mL/min (>60); Est Glom Filt Rate - Afr Amer 73 mL/min (>60); Globulin 3.9 g/dL (2.2-4.2); Glucose 208 mg/dL (74-106); High Density Lipoprotein 58 mg/dL; Magnesium 1.8 mg/dL (1.6-2.6); Potassium 4.1 mmol/L (3.5-5.1); Protein, Total 7.6 g/dL (6.4-8.2); Sodium Level 137 mmol/L (136-145); T4 Free Direct 0.96 ng/dL (0.76-1.46); Thyroid Stim Hormone (TSH) 1.76 uIU/mL (0.358-3.74); Triglycerides 88 mg/dL; Very Low Density Lipoprotein 18 mg/dL (5-40)
[2022-01-15 08:11] LABS: Microalbumin,Random Urine 7.2 mg/L (NO RANGE EST.); Microalbumin:Creatinine Ratio 6.6 mg/g CRE (<30 mg/g CRE)
[2022-01-15 08:53] LABS: Vitamin D,25 Hydroxy 50.9 ng/mL
[2022-01-15 09:10] LABS: Hemoglobin A1c 6.9 % (3.8-5.6)
== END 2022-01-15 23:59 | disposition home or self-care (01) ==
PROVIDERS: PCP Family Medicine; Referring Provider Family Medicine; Visit Provider Family Medicine
DX: E03.8 Other specified hypothyroidism (principal); E11.9 Type 2 diabetes mellitus without complications; E55.9 Vitamin D deficiency, unspecified
CPT/HCPCS: 36415; 80053; 80061; 82043; 82306; 82570; 83036; 83735; 84439; 84443; 85025

== ENCOUNTER → 2022-02-22 | Outpatient (CLI) | payer MEDICARE, OTHER, SELFPAY ==
--- NOTE | 2022-02-22 13:22 | BI_ITS ---
MAMMOGRAPHY - BILATERAL SCREENING REASON FOR EXAM: Female, 67 years old. Routine annual screening examination. PERTINENT HISTORY: Non-contributory. TECHNIQUE: Digital bilateral breast kenyetta (3D mammographic acquisition) in the CC and MLO projections. 2-D mediolateral oblique (MLO) and craniocaudad (CC) views of both breasts were obtained. CAD: Full Field Digital Mammography with Computer Added Detection was performed. COMPARISON: Comparison is made with prior study of 02/14/2020 and 02/10/2019 FINDINGS: Breast Composition: There are scattered areas of fibroglandular density. There are no dominant masses or suspicious calcifications. Stable small benign-appearing bilateral axillary lymph nodes. No other significant abnormalities are identified. There has been no significant change since the prior study. BI/SCRN MAMM (CAD)W/KENYETTA BILAT IMPRESSION: Stable bilateral screening mammogram. Yearly follow-up mammogram recommended. (A) ASSESSMENT CATEGORY: BIRADS Category 2: Benign. A letter regarding these results will be sent to the patient by the facility within 30 days. Approximately 10% of breast cancers are not detected by mammography. A normal mammogram should not delay biopsy of a clinically suspicious abnormality. [id number] Electronically Signed: Jose Carr MD at 14:49 EDT ,
== END | disposition home or self-care (01) ==
LOC: OPBI 13:21
PROVIDERS: PCP Family Medicine; Visit Provider Family Medicine
DX: Z12.31 Encounter for screening mammogram for malignant neoplasm of breast (principal)
CPT/HCPCS: 77063; 77067

== ENCOUNTER → 2022-05-13 | Outpatient (CLI) | payer MEDICARE, OTHER, SELFPAY ==
--- NOTE | 2022-05-13 13:19 | RAD_ITS ---
INDICATION: Cough, Bronchitis EXAMINATION/TECHNIQUE: X-RAY - XR Chest 2 Views COMPARISON: None. FINDINGS: LINES/DEVICES: None. LUNGS: Peribronchial cuffing bilateral hilar prominence is seen. No consolidation, edema or effusion. No pneumothorax. MEDIASTINUM AND CARDIOVASCULAR STRUCTURES: Cardiac silhouette not enlarged. Central airways and mediastinal contour are unremarkable. BONES AND SOFT TISSUES: Unremarkable. RAD/Chest PA and Lateral IMPRESSION: Peribronchial cuffing, would recommend clinical correlation for acute bronchitis or airway disease. Electronically Signed: Andrey Brown MD at 15:35 EDT ,
== END | disposition home or self-care (01) ==
LOC: MTLAB 13:17 → MTRAD 13:23
PROVIDERS: PCP Family Medicine; Referring Provider Family Medicine; Visit Provider Family Medicine
DX: J20.9 Acute bronchitis, unspecified (principal)
CPT/HCPCS: 71046

== ENCOUNTER → 2022-05-14 | Outpatient (CLI) | payer MEDICARE, OTHER, SELFPAY | END | disposition home or self-care (01) | LOC: MTLAB 07:01 | PROVIDERS: PCP Family Medicine; Referring Provider Family Medicine; Visit Provider Family Medicine | DX: J20.9 Acute bronchitis, unspecified (principal) | CPT/HCPCS: 87070; 87205 ==

== ENCOUNTER → 2022-05-23 | Outpatient (CLI) | payer MEDICARE, OTHER, SELFPAY ==
[2022-05-23 07:13] LABS: Absolute Lymphocyte Count 1.58 X10^3/uL (0.83-4.51); Absolute Neutrophil Count 3.5 X10^3/uL (2.0-7.7); Basophil# 0.05 X10^3/uL; Basophil% 0.8 % (0-1); Eosinophil# 0.18 X10^3/uL; Hematocrit 43.7 % (37-47); Hemoglobin 13.8 g/dL (12.0-15.0); Lymphocyte # 1.58 X10^3/ul (0.83-4.51); Lymphocyte % 26.5 % (19-41); Mean Corp Hgb Conc 31.6 g/dL (32-36); Mean Corpuscular Hgb 29.2 pg (27.0-32.0); Mean Corpuscular Volume 92.4 fL (81-99); Monocyte# 0.63 X10^3/uL; Monocyte% 10.6 % (0-10); NRBC Flagged by Analyzer 0 % (0-5); Neutrophil # 3.51 X10^3/uL (2.7-7.7); Neutrophil % 58.9 % (47-70); Platelet Count 237 K/mm3 (150-450); RBC Distribution Width CV 12.9 % (11.6-14.6); RBC Distribution Width SD 43.7 fl (35.1-43.9); Red Blood Count 4.73 M/mm3 (4.2-5.4)
[2022-05-23 07:31] LABS: Hemoglobin A1c 7.2 % (3.8-5.6)
[2022-05-23 07:35] LABS: Microalbumin,Random Urine 10.8 mg/L (NO RANGE EST.); Microalbumin:Creatinine Ratio 9.5 mg/g CRE (<30 mg/g CRE)
[2022-05-23 07:56] LABS: ALB/GLOB Ratio 0.9 RATIO (0.9-2.4); AST(SGOT) 33 U/L (15-37); Alanine Aminotransfer ALT/SGPT 40 U/L (13-56); Albumin, Serum 3.7 g/dL (3.2-5.0); Alkaline Phosphatase 80 U/L (45-117); Anion Gap 6 (5-15); BUN 17 mg/dL (7-18); BUN/Creat Ratio 17.3 RATIO (10-20); Calcium,Total 9.4 mg/dL (8.5-10.1); Chloride 104 mmol/L (98-107); Cholesterol 126 mg/dL (200); Creatinine, Serum 0.98 mg/dL (0.55-1.02); EST Glomerular Filtration Rate 60 mL/min (>60); Est Glom Filt Rate - Afr Amer 73 mL/min (>60); Glucose 208 mg/dL (74-106); High Density Lipoprotein 57 mg/dL; Magnesium 1.8 mg/dL (1.6-2.6); Potassium 4.1 mmol/L (3.5-5.1); Protein, Total 7.7 g/dL (6.4-8.2); Sodium Level 139 mmol/L (136-145); T4 Free Direct 1.07 ng/dL (0.76-1.46); Thyroid Stim Hormone (TSH) 2.43 uIU/mL (0.358-3.74); Triglycerides 79 mg/dL; Uric Acid 2.8 mg/dL (2.6-6.0); Very Low Density Lipoprotein 16 mg/dL (5-40)
[2022-05-23 08:05] LABS: Vitamin D,25 Hydroxy 66.7 ng/mL
== END | disposition home or self-care (01) ==
LOC: LAB 06:36
PROVIDERS: PCP Family Medicine; Referring Provider Family Medicine; Visit Provider Family Medicine
DX: E11.9 Type 2 diabetes mellitus without complications (principal); E03.8 Other specified hypothyroidism; N20.0 Calculus of kidney; E55.9 Vitamin D deficiency, unspecified
CPT/HCPCS: 36415; 80053; 80061; 82043; 82306; 82570; 83036; 83735; 84439; 84443; 84550; 85025

== ENCOUNTER → 2022-07-31 | Outpatient (CLI) | payer MEDICARE, OTHER, SELFPAY ==
[2022-08-07 09:51] LABS: Pancreatic Elastase, Fecal 438 (>200)
== END | disposition home or self-care (01) ==
LOC: LABSPEC 14:22
PROVIDERS: PCP Family Medicine; Referring Provider Family Medicine; Visit Provider Family Medicine
DX: R19.7 Diarrhea, unspecified (principal)
CPT/HCPCS: 82653

== ENCOUNTER → 2022-08-27 | Outpatient (CLI) | payer MEDICARE, OTHER, SELFPAY ==
[2022-08-27 07:35] LABS: Absolute Lymphocyte Count 1.46 X10^3/uL (0.83-4.51); Absolute Neutrophil Count 3.6 X10^3/uL (2.0-7.7); Basophil# 0.06 X10^3/uL; Eosinophil# 0.14 X10^3/uL; Eosinophils% 2.4 % (0-5); Hematocrit 41.9 % (37-47); Hemoglobin 13.1 g/dL (12.0-15.0); Lymphocyte # 1.46 X10^3/ul (0.83-4.51); Lymphocyte % 25.1 % (19-41); Mean Corp Hgb Conc 31.3 g/dL (32-36); Mean Corpuscular Volume 92.9 fL (81-99); Mean Platelet Vol. 10.1 fl (6.2-12.0); Monocyte# 0.54 X10^3/uL; Monocyte% 9.3 % (0-10); NRBC Flagged by Analyzer 0 % (0-5); Neutrophil % 61.9 % (47-70); Platelet Count 282 K/mm3 (150-450); RBC Distribution Width CV 13.8 % (11.6-14.6); RBC Distribution Width SD 46.6 fl (35.1-43.9); Red Blood Count 4.51 M/mm3 (4.2-5.4); White Blood Count 5.8 K/mm3 (4.4-11.0)
[2022-08-27 08:05] LABS: AST(SGOT) 22 U/L (15-37); Alanine Aminotransfer ALT/SGPT 32 U/L (13-56); Albumin, Serum 3.8 g/dL (3.2-5.0); Alkaline Phosphatase 76 U/L (45-117); Anion Gap 7 (5-15); BUN 12 mg/dL (7-18); BUN/Creat Ratio 14.3 RATIO (10-20); Calcium,Total 9.3 mg/dL (8.5-10.1); Chloride 102 mmol/L (98-107); Cholesterol 144 mg/dL (200); Creatinine, Serum 0.84 mg/dL (0.55-1.02); EST Glomerular Filtration Rate 72 mL/min (>60); Est Glom Filt Rate - Afr Amer 87 mL/min (>60); Globulin 3.9 g/dL (2.2-4.2); Glucose 195 mg/dL (74-106); High Density Lipoprotein 69 mg/dL; Magnesium 2.1 mg/dL (1.6-2.6); Protein, Total 7.7 g/dL (6.4-8.2); Sodium Level 139 mmol/L (136-145); T4 Free Direct 1.08 ng/dL (0.76-1.46); Thyroid Stim Hormone (TSH) 2.08 uIU/mL (0.358-3.74); Triglycerides 79 mg/dL; Very Low Density Lipoprotein 16 mg/dL (5-40)
[2022-08-27 08:19] LABS: Vitamin D,25 Hydroxy 52.5 ng/mL
[2022-08-27 08:20] LABS: Hemoglobin A1c 6.2 % (3.8-5.6)
== END | disposition home or self-care (01) ==
LOC: LAB 06:22
PROVIDERS: PCP Family Medicine; Referring Provider Family Medicine; Visit Provider Family Medicine
DX: E11.9 Type 2 diabetes mellitus without complications (principal); E06.3 Autoimmune thyroiditis; E03.8 Other specified hypothyroidism; E55.9 Vitamin D deficiency, unspecified
CPT/HCPCS: 36415; 80053; 80061; 82306; 83036; 83735; 84439; 84443; 84550; 85025

== ENCOUNTER → 2022-10-18 | Outpatient (CLI) | payer MEDICARE, OTHER, SELFPAY ==
[2022-10-18 16:31] LABS: Absolute Lymphocyte Count 1.76 X10^3/uL (0.83-4.51); Absolute Neutrophil Count 4.6 X10^3/uL (2.0-7.7); Basophil# 0.05 X10^3/uL; Basophil% 0.7 % (0-1); Eosinophil# 0.16 X10^3/uL; Eosinophils% 2.2 % (0-5); Hematocrit 42.9 % (37-47); Hemoglobin 13.6 g/dL (12.0-15.0); Lymphocyte # 1.76 X10^3/ul (0.83-4.51); Lymphocyte % 24.3 % (19-41); Mean Corp Hgb Conc 31.7 g/dL (32-36); Mean Corpuscular Hgb 28.6 pg (27.0-32.0); Mean Corpuscular Volume 90.3 fL (81-99); Mean Platelet Vol. 10.3 fl (6.2-12.0); Monocyte# 0.62 X10^3/uL; Monocyte% 8.6 % (0-10); NRBC Flagged by Analyzer 0 % (0-5); Neutrophil # 4.63 X10^3/uL (2.7-7.7); Neutrophil % 63.9 % (47-70); Platelet Count 241 K/mm3 (150-450); RBC Distribution Width CV 12.7 % (11.6-14.6); RBC Distribution Width SD 42.2 fl (35.1-43.9); Red Blood Count 4.75 M/mm3 (4.2-5.4); White Blood Count 7.2 K/mm3 (4.4-11.0)
[2022-10-18 16:37] LABS: Erythrocyte Sedimentation Rate 23 mm/hr (0-30)
[2022-10-18 17:09] LABS: ALB/GLOB Ratio 1.1 RATIO (0.9-2.4); AST(SGOT) 21 U/L (15-37); Alanine Aminotransfer ALT/SGPT 33 U/L (13-56); Alkaline Phosphatase 82 U/L (45-117); Anion Gap 4 (5-15); BUN 19 mg/dL (7-18); CRP 4.14 mg/L (0.0-3.0); Calcium,Total 9.5 mg/dL (8.5-10.1); Chloride 101 mmol/L (98-107); Creatinine, Serum 0.95 mg/dL (0.55-1.02); EST Glomerular Filtration Rate 63 mL/min (>60); Est Glom Filt Rate - Afr Amer 76 mL/min (>60); Globulin 3.7 g/dL (2.2-4.2); Glucose 155 mg/dL (74-106); LDH 179 U/L (84-246); Potassium 3.2 mmol/L (3.5-5.1); Protein, Total 7.7 g/dL (6.4-8.2); Sodium Level 140 mmol/L (136-145)
[2022-10-21 13:07] LABS: Anti-Centromere B Ab <0.2 AI (0.0-0.9); Anti-Chromatin <0.2 AI (0.0-0.9); Anti-Jo <0.2 AI (0.0-0.9); Anti-Scleroderma-70 AB <0.2 AI (0.0-0.9); RNP Ab 0.2 AI (0.0-0.9); SJOGREN'S Anti-SS-A test 0.5 AI (0.0-0.9); SJOGREN'S Anti-SS-B test < 0.2 AI (0.0-0.9); Smith Ab <0.2 AI (0.0-0.9)
[2022-10-21 15:07] LABS: Endomysial Antibody IgA Negative (Negative)
[2022-10-21 16:06] LABS: Immunoglobulin A 121 mg/dL (87-352); t-Transglutaminase IgA <2 U/mL (0-3)
[2022-10-21 16:22] LABS: Anti-dsDNA Ab 1 IU/mL (0-9)
[2022-10-24 00:06] LABS: Albumin 3.7 g/dL (2.9-4.4); Alpha-1-Globulins 0.2 g/dL (0.0-0.4); Alpha-2-Globulins 1.1 g/dL (0.4-1.0); Cytoplasmic Ab (C-ANCA) <1:20 titer (Neg:<1:20); Immunoglobulin A 121 mg/dL (87-352); Immunoglobulin E 19 IU/mL (6-495); Immunoglobulin G 1028 mg/dL (586-1602); Immunoglobulin M 61 mg/dL (26-217)
[2022-10-24 21:53] LABS: Perinuclear Ab (P-ANCA) <1:20 titer (Neg:<1:20)
== END | disposition home or self-care (01) ==
PROVIDERS: PCP Family Medicine; Referring Provider Nurse Practitioner Adult Health; Visit Provider Nurse Practitioner Adult Health
DX: K58.0 Irritable bowel syndrome with diarrhea (principal)
CPT/HCPCS: 36415; 80053; 82784; 82785; 83516; 83615; 84165; 85025; 85652; 86140; 86225; 86235; 86255; 86256; 86334

== ENCOUNTER → 2022-10-21 | Outpatient (CLI) | payer MEDICARE, OTHER, SELFPAY ==
[2022-10-23 21:01] LABS: Calprotectin, Stool <16 ug/g (0-120)
== END | disposition home or self-care (01) ==
LOC: LABSPEC 11:34
PROVIDERS: PCP Family Medicine; Referring Provider Nurse Practitioner Adult Health; Visit Provider Nurse Practitioner Adult Health
DX: K58.0 Irritable bowel syndrome with diarrhea (principal); D84.9 Immunodeficiency, unspecified
CPT/HCPCS: 83630; 83993; 87177; 87209; 87493; 87506

== ENCOUNTER 2022-12-23 06:07 | Day surgery (SDC) | payer MEDICARE, OTHER, SELFPAY ==
[2022-12-23] VITALS (7 sets, daily range): BP systolic 100–115; BP diastolic 63–72; PULSE 62–72; RESP 14–16; TEMP 36.1–36.6; O2SAT 95–97; BMI 34.2
--- NOTE | 2022-12-23 | IMM_PTH ---
PATIENT: RITCHIE DUMONT LOC: EN U#:[id number] AGE/SX: 67/F ROOM: RE12/23/[address]: Dr. Abdi Jackson DO : 1955 BED: DIS: 12/23/2022 SPEC #: [id number] RECD: 12/24/22 10:46 STATUS: CHITRA REQ #: [id number] RORO: 12/23/22 00:[address]: Abdi Jackson DEPT: IMMUNOHISTOCHEMISTRY RECD BY: Rashmi Becerra ENTERED: 12/24/22 10:47 SP TYPE: IMMUNO OTHR DR: Dr. Mike Durham MD Tissues: B - Esophageal mucous membrane Procedures: P53 (initial) KI-67 (add) PHYSICIAN & INSTITUTION [place] [id number] SPECIMEN INFORMATION: Tissue Source: B ? Distal esophagus biopsy Clinical Info: Irritable bowel syndrome with diarrhea Specimen Number: [id number] CPT code: 47443, 68923 METHODOLOGY: Deparaffinized sections of prefer/formalin-fixed tissue or PAP/DQ stained slides are incubated with monoclonal/polyclonal antibodies/oligonucleotide probes. Localization is made via biotin free immunoperoxidase method. Appropriate controls are performed and reacted as expected. Results on target cell population are indicated in the following table: RESULTS: ANTIBODY / CLONE RESULT Block B P53 (DO-7) negative, Null pattern Ki-67 (30-9) positive, very low These tests were developed and their performance characteristics determined by [facility]. They may not have been cleared or approved by the U.S. Food and Drug Administration. The FDA has determined that such clearance or approval is not necessary. The above immunohistochemical/dualISH markers are ordered and reviewed by the Pathologist. INTERPRETATION: B. Distal esophagus, biopsy: Negative for dysplasia. SJ:lori 12/25/2022
--- NOTE | 2022-12-23 06:33 | PCM.HP.BLA ---
History and Physical Date of Admission: 12/23/22 67 F who presents to the office today to establish for IBS-D. Started at least 20 yrs ago. The urgency has gotten worse, having accidents. Frustrating because she would like to travel now that she has retired. She has urgent, watery diarrhea, multiple bouts per day. She has had nocturnal diarrhea. Viberzi is effective but cost prohibitive. She supplements partial dose of Viberzi with loperamide w/ some benefit. No dietary triggers in particular. No relief with Lotronex. Never on xifaxan. Never on cholestryramine or colestipol. Never on lomotil. On metformin for 15 yrs. Tested negative for celiac in 2018. Normal fecal elastase in 2021. Due in 2022 for colonoscopy. No melena or hematochezia. Gets a discomfort in the LLQ before diarrhea, that resolves after having multiple bouts of diarrhea in the morning. Occurs after toast in the morning. Can occur w/o eating first too. No nausea, vomiting, dysphagia, heartburn, acid reflux. She has inflammatory polyarthropathy, on plaquenil, sees [facility] arthritis Comorbidities include SCC tongue, kidney stones, osteoarthritis, inflammatory polyarthropathy, fatty liver, obesity, type 2 diabetes, hypertension Surgical history right partial glossectomy with right neck dissection, multiple kidney stone procedures, vaginal fistula repair in 1983, rotator cuff repair, partial knee replacement Never smoker, no alcohol, retired from [employer] and [employer] office ROS Const Constitutional: No fatigue, fever(s), frequent falls, headache(s) or weight change ENT ENT: No headache(s) or difficulty swallowing Cardio Cardiology: No leg pain with exertion Gastro GI: Positive for diarrhea; No abdominal pain, bloating, change in bowel habits, constipation, heartburn, difficulty swallowing, Vomiting blood/hematemesis, Blood in stool, nausea/dyspepsia or vomiting Musc Musculoskeletal: No abnormal gait, joint pain, back pain, joint swelling, muscle cramps, muscle weakness, numbness, stiffness, tingling, Arthritis, sciatica, leg pain at night or leg pain with exertion Skin Skin: No dry skin, lesions, itchy eyes or rash Neuro Neurology: No abnormal gait, dizziness, frequent falls, headache(s), numbness, tingling, tremor(s), Increased tone in limbs, paralysis or seizures Psych Psychiatric: No anxiety, No depression, No paranoia, No Behavioral Problems, No Compulsive Behavior, No hyperactivity, No inattentiveness, No obsessions/compulsions, No Temper Tantrums and No suicidal ideation Endo Endocrine: No fatigue or weight change Aller/Imm Allergy/Immunologic: No itchy eyes Alvin/Lymp Hematologic/Lymphatic: No easy bleeding or easy bruising Exam Const General: cooperative and comfortable Nutritional Appearance: obese Orientation: alert, awake and oriented x3 Eyes Sclera: sclerae normal Resp Effort & Inspection: normal respiratory effort GI Inspection: obesity Palpation: soft, no hepatosplenomegaly, no masses and nontender Neuro Gait: normal gait Psych Mood: euthymic mood Quality Reporting Tobacco Screening ([facility] 138) Smoking Status: Never smoker Assessment and Plan Assessment and Plan (1) Irritable bowel syndrome with diarrhea: ?Status:?Acute ?Plan: 67 yr old female with diagnosis of IBS-D. She has severe, urgent diarrhea including nocturnal diarrhea. Comorbidities include inflammatory arthritis, DM2, fatty liver, tongue cancer. Recent negative test for EPI. Will test for celiac, Crohn's, infection. Start with biochemical eval, then based on results decide re CT (possibly enterography) or MR. EGD and colonoscopy will be scheduled, will consider if capsule endoscopy needed too Rx cholestyramine once a day, consider adding psyllium husk Consider HIDA scan to check gallbladder function Will send her portal msg with results, see how cholestyramine is working, discuss next step f/u 2 wks after endoscopies to discuss results (2) Fatty liver: ?Status:?Acute ?Plan: We will address this later ? ? ? Orders: Orders Comprehensive Metabolic Profil Today K58.0 - Irritable bowel syndrome with diarrhea ? CRP Today K58.0 - Irritable bowel syndrome with diarrhea ? LDH Today K58.0 - Irritable bowel syndrome with diarrhea ? CBC W/Diff, Automated Today K58.0 - Irritable bowel syndrome with diarrhea, K58.9 - Irritable bowel syndrome without diarrhea ? Erythrocyte Sed Rate Today K58.0 - Irritable bowel syndrome with diarrhea ? GIOVANNY Comprehensive Panel Today K58.0 - Irritable bowel syndrome with diarrhea ? Calprotectin, Stool Today K58.0 - Irritable bowel syndrome with diarrhea ? Stool Lactoferrin/WBC Today K58.0 - Irritable bowel syndrome with diarrhea ? ANCA Today K58.0 - Irritable bowel syndrome with diarrhea ? Celiac Disease Profile Today K58.0 - Irritable bowel syndrome with diarrhea ? Immunoglobulins G/A/M/E Today K58.0 - Irritable bowel syndrome with diarrhea ? ROSEMARY + Protein Elect, Serum Today K58.0 - Irritable bowel syndrome with diarrhea ? Miscellaneous Lab Procedure Today K58.0 - Irritable bowel syndrome with diarrhea ? ENTERIC PATHOGEN PANEL STOOL Today D84.9 - Immunodeficiency, unspecified, K58.0 - Irritable bowel syndrome with diarrhea, K58.9 - Irritable bowel syndrome without diarrhea ? Ova and Parasites 8623 Today K58.0 - Irritable bowel syndrome with diarrhea ? CDIFF (PCR) Today K58.0 - Irritable bowel syndrome with diarrhea ? Medications: New cholestyramine (with sugar) 4 gram ?? administer w/meal; avoid other meds within 1hr before or 4-6hr after dose 4 grams? PO DAILY 348.6 grams 2RF diarrhea ? ? Discontinued allopurinol ?? Discontinued Reason:? Duplicate Order ?? PO ? ? cholecalciferol (vitamin D3) (Vitamin D3) ?? Discontinued Reason:? Duplicate Order 2,000 units? PO DAILY ? ? I have examined the patient and the H&P has been reviewed. There are no clinical changes since date of exam.
[2022-12-23] MEDS: Lactated Ringers 1,000 ML 15 ML IV (06:43)
--- NOTE | 2022-12-23 07:15 | EGD_PTH ---
PATIENT: RITCHIE DUMONT LOC: EN U#:[id number] AGE/SX: 67/F ROOM: RE12/23/[address]: Dr. Abdi Jackson DO : 1955 BED: DIS: 12/23/2022 SPEC #: [id number] RECD: 12/23/22 10:30 STATUS: CHITRA REGorge #: [id number] RORO: 12/23/22 07:[address]: Abdi Jackson DEPT: SURGICAL PATHOLOGY RECD BY: Irene Marie ENTERED: 12/23/22 11:07 SP TYPE: EGD BIOPSY OT DR: Dr. Mike Durham MD Tissues: A - Duodenum, NOS B - Esophagus, NOS C - COLON BIOPSY Procedures: Surgery Specimen Level IV HEADER OPERATION: Colonoscopy, EGD ([facility]), biopsy PRE-OP DIAGNOSIS: Irritable bowel syndrome with diarrhea TISSUE SUBMITTED: A ? Duodenum biopsy, B ? Distal esophagus biopsy, C ? Random colon biopsy MICROSCOPIC DIAGNOSIS A. Duodenum, biopsy: Fragments of duodenal mucosa, no pathologic diagnosis. B. Distal esophagus, biopsy: Fragments of gastroesophageal mucosa with intestinal metaplasia (goblet cell metaplasia), consistent with Vaz's esophagus. Chronic inflammation. Negative for dysplasia. See comment. C. Colon, random biopsy: Fragments of colonic mucosa, no pathologic diagnosis. SJ:rg 12/24/2022 COMMENT B. Alcian blue/PAS stain with matched control is used in the evaluation of the specimen. Immunohistochemistry ([id number]) for P53 and Ki-67 will be performed and results will be reported separately. MICROSCOPIC DESCRIPTION Slides are reviewed. GROSS DESCRIPTION A - Received in fixative is one container labeled with the patient's name and designated biopsy duodenum. The specimen consists of two irregular fragments of light cuello soft tissue that in aggregate measure 0.6 x 0.3 x 0.1 cm. The specimen is totally submitted in one cassette. B - Received in fixative is one container labeled with the patient's name and designated biopsy distal esophagus. The specimen consists of multiple irregular fragments of light cuello soft tissue that in aggregate measure 1.0 x 0.3 x 0.1 cm. The specimen is totally submitted in one cassette. C - Received in fixative is one container labeled with the patient's name and designated random colon biopsy. The specimen consists of multiple irregular fragments of light cuello soft tissue that in aggregate measure 2.0 x 0.5 x 0.1 cm. The specimen is totally submitted in one cassette. / SJ:rg 12/23/2022 TC:3 CPT: 60569 x3
[2022-12-23 07:16] LABS: Bedside Glucose 183 mg/dL (74-106)
--- NOTE | 2022-12-23 08:06 | OP.EGD_ITS ---
Patient Name: Astrid Baca Procedure Date: 12/23/2022 7:22 AM Date of : 1955 Age: 67 Procedure: Upper GI endoscopy Indications: Epigastric abdominal pain, Suspected esophageal reflux Providers: Abdi Jackson DO Medicines: Monitored Anesthesia Care Patient Profile: This is a 67 year old female. Refer to note in patient chart for documentation of history and physical. Patient has symptoms of chronic abdominal cramping, chronic dyspepsia and chronic nausea. Complications: No immediate complications. Procedure: Pre-Anesthesia Assessment: - Prior to the procedure, a History and Physical was performed, and patient medications and allergies were reviewed. The patient is competent. The risks and benefits of the procedure and the sedation options and risks were discussed with the patient. All questions were answered and informed consent was obtained. Patient identification and proposed procedure were verified by the physician in the pre-procedure area. Mental Status Examination: alert and oriented. Airway Examination: normal oropharyngeal airway and neck mobility. Respiratory Examination: clear to auscultation. CV Examination: normal. Prophylactic Antibiotics: The patient does not require prophylactic antibiotics. Prior Anticoagulants: The patient has taken no previous anticoagulant or antiplatelet agents. After reviewing the risks and benefits, the patient was deemed in satisfactory condition to undergo the procedure. The anesthesia plan was to use monitored anesthesia care (MAC). Immediately prior to administration of medications, the patient was re-assessed for adequacy to receive sedatives. The heart rate, respiratory rate, oxygen saturations, blood pressure, adequacy of pulmonary ventilation, and response to care were monitored throughout the procedure. The physical status of the patient was re-assessed after the procedure. After obtaining informed consent, the endoscope was passed under direct vision. Throughout the procedure, the patient's blood pressure, pulse, and oxygen saturations were monitored continuously. The Colonoscope was introduced through the mouth, and advanced to the second part of duodenum. The upper GI endoscopy was accomplished without difficulty. The patient tolerated the procedure well. Scope In: 7:33:42 AM Scope Out: 7:40:11 AM Total Procedure Duration Time 0 hours 6 minutes 29 seconds Findings: There were esophageal mucosal changes consistent with long-segment Vaz's esophagus present in the lower third of the esophagus. The maximum longitudinal extent of these mucosal changes was 5 cm in length. Mucosa was biopsied with a cold forceps for histology in a targeted manner at intervals of 1 cm in the middle third of the esophagus and in the lower third of the esophagus. One specimen bottle was sent to pathology. Patchy mild inflammation characterized by congestion (edema) was found in the stomach. Mildly erythematous mucosa without active bleeding and with no stigmata of bleeding was found in the first portion of the duodenum. Biopsies were taken with a cold forceps for histology. Verification of patient identification for the specimen was done. Estimated blood loss was minimal. 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 Biopsied. - Bile gastritis. - Erythematous duodenopathy. Biopsied. Recommendation: - Discharge patient to home. - Resume previous diet. - Continue present medications. - Await pathology results. - Repeat upper endoscopy in 1 year for surveillance. Procedure Code(s): --- Professional --- 73034, Esophagogastroduodenoscopy, flexible, transoral; with biopsy, single or multiple CPT copyright 2017 [employer]. All rights reserved. The codes documented in this report are preliminary and upon medical record coder review may be revised to meet current compliance requirements. Abdi Jackson DO 12/23/2022 8:05:37 AM This report has been signed electronically. Number of Addenda: 0 Note Initiated On: 12/23/2022 7:22 AM
--- NOTE | 2022-12-23 08:07 | OP.CCLET_ITS ---
12/23/2022 Mike Durham [address] [place] [address] Re : Upper GI endoscopy procedure for Astrid Baca Dear Dr. Durham This procedure was performed on Friday, December 23, 2022. 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 Biopsied. - Bile gastritis. - Erythematous duodenopathy. Biopsied. Recommendations : - Discharge patient to home. - Resume previous diet. - Continue present medications. - Await pathology results. - Repeat upper endoscopy in 1 year for surveillance. My findings are described in the full procedure note, which is enclosed. If I can be of further assistance, please feel free to contact me at . Sincerely, Abdi Jackson, 12/23/2022 8:05:37 AM This report has been signed electronically.
--- NOTE | 2022-12-23 08:11 | OP.CCLET_ITS ---
12/23/2022 Mike Durham [address] [place] [address] Re : Colonoscopy procedure for Astrid Baca Dear Dr. Durham This procedure was performed on Friday, December 23, 2022. My impressions and recommendations are as follows: Impressions : - Congested mucosa in the sigmoid colon, at the splenic flexure and at the hepatic flexure. Biopsied. - Diverticulosis in the sigmoid colon. Recommendations : - Discharge patient to home. - Resume previous diet. - Continue present medications. - Await pathology results. - Repeat colonoscopy in 5 years for surveillance. My findings are described in the full procedure note, which is enclosed. If I can be of further assistance, please feel free to contact me at . Sincerely, Abdi Jackson, 12/23/2022 8:10:25 AM This report has been signed electronically.
--- NOTE | 2022-12-23 08:11 | OP.COLON_ITS ---
Patient Name: Astrid Baca Procedure Date: 12/23/2022 7:41 AM Date of : 1955 Age: 67 Procedure: Colonoscopy Indications: Clinically significant diarrhea of unexplained origin Providers: Abdi Jackson DO Medicines: Monitored Anesthesia Care Patient Profile: This is a 67 year old female. Refer to note in patient chart for documentation of history and physical. Patient has symptoms of chronic abdominal cramping, chronic dyspepsia and chronic nausea. Last Colonoscopy: date unknown. Unable to locate last colonoscopy report. Complications: No immediate complications. Procedure: Pre-Anesthesia Assessment: - Prior to the procedure, a History and Physical was performed, and patient medications and allergies were reviewed. The patient is competent. The risks and benefits of the procedure and the sedation options and risks were discussed with the patient. All questions were answered and informed consent was obtained. Patient identification and proposed procedure were verified by the physician in the pre-procedure area. Mental Status Examination: alert and oriented. Airway Examination: normal oropharyngeal airway and neck mobility. Respiratory Examination: clear to auscultation. CV Examination: normal. Prophylactic Antibiotics: The patient does not require prophylactic antibiotics. Prior Anticoagulants: The patient has taken no previous anticoagulant or antiplatelet agents. After reviewing the risks and benefits, the patient was deemed in satisfactory condition to undergo the procedure. The anesthesia plan was to use monitored anesthesia care (MAC). Immediately prior to administration of medications, the patient was re-assessed for adequacy to receive sedatives. The heart rate, respiratory rate, oxygen saturations, blood pressure, adequacy of pulmonary ventilation, and response to care were monitored throughout the procedure. The physical status of the patient was re-assessed after the procedure. After I obtained informed consent, the scope was passed under direct vision. Throughout the procedure, the patient's blood pressure, pulse, and oxygen saturations were monitored continuously. The Colonoscope was introduced through the anus and advanced to the terminal ileum. The colonoscopy was performed without difficulty. The patient tolerated the procedure well. The quality of the bowel preparation was good. Scope In: 7:43:04 AM Scope Withdrawal Time 0 hours 12 minutes 6 seconds Scope Out: 7:59:38 AM Total Procedure Duration Time 0 hours 16 minutes 34 seconds Findings: The perianal and digital rectal examinations were normal. An area of mildly congested mucosa was found in the sigmoid colon, at the splenic flexure and at the hepatic flexure. Biopsies were taken with a cold forceps for histology. Verification of patient identification for the specimen was done. Estimated blood loss was minimal. A few small-mouthed diverticula were found in the sigmoid colon. Impression: - Congested mucosa in the sigmoid colon, at the splenic flexure and at the hepatic flexure. Biopsied. - Diverticulosis in the sigmoid colon. Recommendation: - Discharge patient to home. - Resume previous diet. - Continue present medications. - Await pathology results. - Repeat colonoscopy in 5 years for surveillance. Procedure Code(s): --- Professional --- 48953, Colonoscopy, flexible; with biopsy, single or multiple CPT copyright 2017 [employer]. All rights reserved. The codes documented in this report are preliminary and upon senior librarian review may be revised to meet current compliance requirements. Abdi Jackson DO 12/23/2022 8:10:25 AM This report has been signed electronically. Number of Addenda: 0 Note Initiated On: 12/23/2022 7:41 AM
== END 2022-12-23 08:51 | disposition home or self-care (01) ==
LOC: EN 06:07 → AC 06:08
PROVIDERS: PCP Family Medicine; Referring Provider Family Medicine; Visit Provider Internal Medicine Gastroenterology
PROC: 0DJD8ZZ Inspection of Lower Intestinal Tract, Via Natural or Artificial Opening Endoscopic (ICD-10-PCS; CPT 45378; principal; 2022-12-23 07:10)
DX: K58.0 Irritable bowel syndrome with diarrhea (principal); C02.9 Malignant neoplasm of tongue, unspecified; E11.9 Type 2 diabetes mellitus without complications; K29.70 Gastritis, unspecified, without bleeding; K76.0 Fatty (change of) liver, not elsewhere classified; K57.30 Diverticulosis of large intestine without perforation or abscess without bleeding; Z87.19 Personal history of other diseases of the digestive system; E66.9 Obesity, unspecified; K22.70 Barrett's esophagus without dysplasia; E78.00 Pure hypercholesterolemia, unspecified; E07.9 Disorder of thyroid, unspecified; Z79.890 Hormone replacement therapy
CPT/HCPCS: 45380; 43239; 82962; 88305; 88341; 88342; J7120; J2405

== ENCOUNTER → 2022-12-26 | Outpatient (CLI) | payer MEDICARE, OTHER, SELFPAY ==
[2022-12-26 07:09] LABS: Absolute Lymphocyte Count 1.65 X10^3/uL (0.83-4.51); Absolute Neutrophil Count 2.6 X10^3/uL (2.0-7.7); Basophil# 0.05 X10^3/uL; Eosinophil# 0.17 X10^3/uL; Eosinophils% 3.5 % (0-5); Hemoglobin 13.6 g/dL (12.0-15.0); Lymphocyte # 1.65 X10^3/ul (0.83-4.51); Lymphocyte % 33.6 % (19-41); Mean Corp Hgb Conc 32.4 g/dL (32-36); Mean Corpuscular Hgb 28.8 pg (27.0-32.0); Monocyte# 0.47 X10^3/uL; Monocyte% 9.6 % (0-10); NRBC Flagged by Analyzer 0 % (0-5); Neutrophil # 2.56 X10^3/uL (2.7-7.7); Neutrophil % 52.1 % (47-70); Platelet Count 222 K/mm3 (150-450); RBC Distribution Width CV 13.4 % (11.6-14.6); RBC Distribution Width SD 43.8 fl (35.1-43.9); Red Blood Count 4.72 M/mm3 (4.2-5.4); White Blood Count 4.9 K/mm3 (4.4-11.0)
[2022-12-26 07:37] LABS: Microalbumin,Random Urine 7.3 mg/L (NO RANGE EST.); Microalbumin:Creatinine Ratio 6.7 mg/g CRE (<30 mg/g CRE)
[2022-12-26 07:48] LABS: GGTP 27 U/L (5-55)
[2022-12-26 07:56] LABS: Hemoglobin A1c 6.7 % (3.8-5.6)
[2022-12-26 08:00] LABS: ALB/GLOB Ratio 1.1 RATIO (0.9-2.4); AST(SGOT) 28 U/L (15-37); Alanine Aminotransfer ALT/SGPT 34 U/L (13-56); Albumin, Serum 3.9 g/dL (3.2-5.0); Alkaline Phosphatase 66 U/L (45-117); Anion Gap 11 (5-15); BUN 18 mg/dL (7-18); BUN/Creat Ratio 19.9 RATIO (10-20); Chloride 105 mmol/L (98-107); Cholesterol 120 mg/dL (200); EST Glomerular Filtration Rate 66 mL/min (>60); Est Glom Filt Rate - Afr Amer 80 mL/min (>60); Globulin 3.6 g/dL (2.2-4.2); Glucose 188 mg/dL (74-106); High Density Lipoprotein 68 mg/dL; Magnesium 1.7 mg/dL (1.6-2.6); Potassium 3.7 mmol/L (3.5-5.1); Protein, Total 7.5 g/dL (6.4-8.2); Sodium Level 142 mmol/L (136-145); T4 Free Direct 1.04 ng/dL (0.76-1.46); Triglycerides 86 mg/dL; Uric Acid 4.9 mg/dL (2.6-6.0); Very Low Density Lipoprotein 17 mg/dL (5-40)
[2022-12-27 16:09] LABS: IgG, Quant 977 mg/dL (586-1602); Immunoglobulin G, Subclass 1 689 mg/dL (248-810); Immunoglobulin G, Subclass 2 143 mg/dL (130-555); Immunoglobulin G, Subclass 3 26 mg/dL (15-102); Immunoglobulin G, Subclass 4 28 mg/dL (2-96)
[2022-12-27 17:04] LABS: Anti-Mitochondrial AB <20.0 Units (0.0-20.0); Anti-Smooth Muscle ABS 10 Units (0-19)
== END | disposition home or self-care (01) ==
LOC: LAB 06:24
PROVIDERS: Nurse Practitioner Adult Health; PCP Family Medicine; Referring Provider Family Medicine; Visit Provider Family Medicine
DX: R76.8 Other specified abnormal immunological findings in serum (principal); E11.9 Type 2 diabetes mellitus without complications; E83.42 Hypomagnesemia; E03.8 Other specified hypothyroidism; N20.0 Calculus of kidney
CPT/HCPCS: 36415; 80053; 80061; 82043; 82570; 82784; 82787; 82977; 83036; 83516; 83735; 84439; 84443; 84550; 85025

== ENCOUNTER → 2023-02-24 | Outpatient (CLI) | payer MEDICARE, OTHER, SELFPAY ==
--- NOTE | 2023-02-24 13:50 | BI_ITS ---
MAMMOGRAPHY - BILATERAL SCREENING REASON FOR EXAM: Female, 68 years old. Routine annual screening examination. PERTINENT HISTORY: Non-contributory. TECHNIQUE: Digital bilateral breast kenyetta (3D mammographic acquisition) in the CC and MLO projections. 2-D mediolateral oblique (MLO) and craniocaudad (CC) views of both breasts were obtained. CAD: Full Field Digital Mammography with Computer Added Detection was performed. COMPARISON: Comparison is made with prior study February 22, 2022 and February 14, 2020. FINDINGS: Breast Composition: There are scattered areas of fibroglandular density. There are no dominant masses or suspicious calcifications. Stable small benign-appearing bilateral axillary nodes. No other significant abnormalities are identified. There has been no significant change since the prior study. BI/SCRN MAMM (CAD)W/KENYETTA BILAT IMPRESSION: Stable bilateral screening mammogram. Yearly follow-up mammogram recommended. (A) ASSESSMENT CATEGORY: BIRADS Category 2: Benign. A letter regarding these results will be sent to the patient by the facility within 30 days. Approximately 10% of breast cancers are not detected by mammography. A normal mammogram should not delay biopsy of a clinically suspicious abnormality. [id number] Electronically Signed: Jose Carr MD at 15:02 EDT ,
== END | disposition home or self-care (01) ==
LOC: OPBI 13:49
PROVIDERS: PCP Family Medicine; Referring Provider Family Medicine; Visit Provider Family Medicine
DX: Z12.31 Encounter for screening mammogram for malignant neoplasm of breast (principal)
CPT/HCPCS: 77063; 77067

== ENCOUNTER → 2023-03-18 | Outpatient (CLI) | payer MEDICARE, OTHER, SELFPAY ==
[2023-03-18 08:03] LABS: Absolute Neutrophil Count 2.6 X10^3/uL (2.0-7.7); Basophil# 0.06 X10^3/uL; Basophil% 1.1 % (0-1); Eosinophil# 0.22 X10^3/uL; Eosinophils% 4.2 % (0-5); Hematocrit 43.9 % (37-47); Hemoglobin 13.9 g/dL (12.0-15.0); Lymphocyte % 34.2 % (19-41); Mean Corp Hgb Conc 31.7 g/dL (32-36); Mean Corpuscular Hgb 28.8 pg (27.0-32.0); Mean Corpuscular Volume 90.9 fL (81-99); Mean Platelet Vol. 10.3 fl (6.2-12.0); Monocyte# 0.54 X10^3/uL; Monocyte% 10.3 % (0-10); NRBC Flagged by Analyzer 0 % (0-5); Neutrophil # 2.63 X10^3/uL (2.7-7.7); Platelet Count 226 K/mm3 (150-450); RBC Distribution Width CV 12.9 % (11.6-14.6); RBC Distribution Width SD 42.4 fl (35.1-43.9); Red Blood Count 4.83 M/mm3 (4.2-5.4); White Blood Count 5.3 K/mm3 (4.4-11.0)
[2023-03-18 08:30] LABS: Hemoglobin A1c 6.8 % (3.8-5.6)
[2023-03-18 08:44] LABS: ALB/GLOB Ratio 1.2 RATIO (0.9-2.4); AST(SGOT) 38 U/L (15-37); Alanine Aminotransfer ALT/SGPT 44 U/L (13-56); Albumin, Serum 4.1 g/dL (3.2-5.0); Alkaline Phosphatase 72 U/L (45-117); Anion Gap 5 (5-15); BUN 20 mg/dL (7-18); BUN/Creat Ratio 22.4 RATIO (10-20); Calcium,Total 9.3 mg/dL (8.5-10.1); Chloride 105 mmol/L (98-107); Cholesterol 131 mg/dL (200); Creatinine, Serum 0.89 mg/dL (0.55-1.02); EST Glomerular Filtration Rate 67 mL/min (>60); Est Glom Filt Rate - Afr Amer 81 mL/min (>60); Globulin 3.3 g/dL (2.2-4.2); Glucose 166 mg/dL (74-106); High Density Lipoprotein 61 mg/dL; Magnesium 1.7 mg/dL (1.6-2.6); Potassium 3.9 mmol/L (3.5-5.1); Protein, Total 7.4 g/dL (6.4-8.2); Sodium Level 138 mmol/L (136-145); Triglycerides 98 mg/dL; Very Low Density Lipoprotein 20 mg/dL (5-40)
== END | disposition home or self-care (01) ==
LOC: LAB 06:03
PROVIDERS: PCP Family Medicine; Referring Provider Family Medicine; Visit Provider Family Medicine
DX: E11.9 Type 2 diabetes mellitus without complications (principal); E83.42 Hypomagnesemia
CPT/HCPCS: 36415; 80053; 80061; 83036; 83735; 85025

== ENCOUNTER → 2023-06-27 | Outpatient (CLI) | payer MEDICARE, OTHER, SELFPAY ==
[2023-06-27 07:02] LABS: Absolute Lymphocyte Count 0.99 X10^3/uL (0.83-4.51); Absolute Neutrophil Count 3.5 X10^3/uL (2.0-7.7); Basophil# 0.04 X10^3/uL; Basophil% 0.8 % (0-1); Eosinophil# 0.14 X10^3/uL; Eosinophils% 2.6 % (0-5); Hematocrit 43.2 % (37-47); Hemoglobin 13.5 g/dL (12.0-15.0); Lymphocyte # 0.99 X10^3/ul (0.83-4.51); Lymphocyte % 18.7 % (19-41); Mean Corp Hgb Conc 31.3 g/dL (32-36); Mean Corpuscular Hgb 28.5 pg (27.0-32.0); Mean Corpuscular Volume 91.1 fL (81-99); Mean Platelet Vol. 10.2 fl (6.2-12.0); Monocyte# 0.59 X10^3/uL; Monocyte% 11.1 % (0-10); NRBC Flagged by Analyzer 0 % (0-5); Neutrophil # 3.52 X10^3/uL (2.7-7.7); Neutrophil % 66.4 % (47-70); Platelet Count 192 K/mm3 (150-450); RBC Distribution Width CV 13.3 % (11.6-14.6); RBC Distribution Width SD 44.6 fl (35.1-43.9); Red Blood Count 4.74 M/mm3 (4.2-5.4); White Blood Count 5.3 K/mm3 (4.4-11.0)
[2023-06-27 07:26] LABS: Microalbumin,Random Urine 12.7 mg/L (NO RANGE EST.); Microalbumin:Creatinine Ratio 11.3 mg/g CRE (<30 mg/g CRE)
[2023-06-27 08:02] LABS: AST(SGOT) 46 U/L (15-37); Alanine Aminotransfer ALT/SGPT 59 U/L (13-56); Albumin, Serum 3.9 g/dL (3.2-5.0); Alkaline Phosphatase 76 U/L (45-117); Anion Gap 8 (5-15); BUN 15 mg/dL (7-18); BUN/Creat Ratio 17.3 RATIO (10-20); Calcium,Total 9.1 mg/dL (8.5-10.1); Chloride 103 mmol/L (98-107); Cholesterol 114 mg/dL (200); Creatinine, Serum 0.87 mg/dL (0.55-1.02); EST Glomerular Filtration Rate 70 mL/min (>60); Est Glom Filt Rate - Afr Amer 84 mL/min (>60); Globulin 3.8 g/dL (2.2-4.2); Glucose 207 mg/dL (74-106); High Density Lipoprotein 60 mg/dL; Magnesium 1.5 mg/dL (1.6-2.6); Potassium 3.6 mmol/L (3.5-5.1); Protein, Total 7.7 g/dL (6.4-8.2); Sodium Level 138 mmol/L (136-145); T4 Free Direct 1.21 ng/dL (0.76-1.46); Thyroid Stim Hormone (TSH) 3.89 uIU/mL (0.358-3.74); Triglycerides 90 mg/dL; Very Low Density Lipoprotein 18 mg/dL (5-40)
[2023-06-27 09:33] LABS: Hemoglobin A1c 6.7 % (3.8-5.6)
[2023-06-27 10:07] LABS: Vitamin D,25 Hydroxy 67.2 ng/mL
== END | disposition home or self-care (01) ==
LOC: LAB 06:33
PROVIDERS: PCP Family Medicine; Referring Provider Family Medicine; Visit Provider Family Medicine
DX: E11.69 Type 2 diabetes mellitus with other specified complication (principal); E03.8 Other specified hypothyroidism; E55.9 Vitamin D deficiency, unspecified
CPT/HCPCS: 36415; 80053; 80061; 82043; 82306; 82570; 83036; 83735; 84439; 84443; 85025

== ENCOUNTER → 2023-10-17 | Outpatient (CLI) | payer MEDICARE, OTHER, SELFPAY ==
--- NOTE | 2023-10-17 10:21 | RAD_ITS ---
STUDY: X-RAY CHEST REASON FOR EXAM: Female, 68 years old. Bronchitis. TECHNIQUE: Frontal and lateral views of the chest. COMPARISON: May 13, 2022 FINDINGS: The lungs are clear and expanded. There is no demonstrated pleural abnormality. Normal size heart. Normal mediastinum and meli. Normal visualized pulmonary arteries. Normal visualized aortic arch and descending thoracic aorta. Stable mild diffuse thoracic spondylosis. Normal visualized ribs, clavicles, and shoulders. There is no demonstrated abnormality of the visualized soft tissue structures of the upper abdomen. RAD/Chest PA and Lateral IMPRESSION: Stable chest with no acute or active cardiopulmonary disease. Electronically Signed: Kvng Padron MD at 11:19 EST ,
== END | disposition home or self-care (01) ==
LOC: MTRAD 10:20
PROVIDERS: PCP Family Medicine; Referring Provider Family Medicine; Visit Provider Family Medicine
DX: J20.9 Acute bronchitis, unspecified (principal)
CPT/HCPCS: 71046

== ENCOUNTER → 2023-10-21 | Outpatient (CLI) | payer MEDICARE, OTHER, SELFPAY ==
--- OUTSIDE RECORDS SUMMARY | 2023-10-21 06:46 | XMS RPT_ITS | CCD ---
Author Name Unknown Address [address] [place] [address] Organization [facility] Care Team Providers Care Blending Machine Feeder Name Role Phone Maxime Astorga MD Unavailable Duong Durham MD Primary Care Provider Duong Durham MD Primary Care Provider [phone] Duong Durham MD Primary Care Provider DUONG DURHAM Primary Care Unavailable MARLEN REEVES Referring Unavailable RICKY BINGHAM Attending Unavailable RICKY BINGHAM Referring Unavailable DUONG DURHAM Primary Care Unavailable RICKY BINGHAM Attending Unavailable DUONG DURHAM Primary Care Unavailable MARLEN REEVES Referring Unavailable RICKY BINGHAM Attending Unavailable RICKY BINGHAM Referring Unavailable DUONG DURHAM Primary Care Unavailable RICKY BINGHAM Attending Unavailable Allergies Allergy Classification Reported Allergen(s) Allergy Type Date of Onset Reaction(s) Facility (1 source) sulfacetamide Drug Allergy 8 [facility] Work Phone: (9 sources) Sulfonamides (Antibiotic) Propensity to adverse reactions to drug 2 [facility] (9 sources) *Seasonal Propensity to adverse reactions to substance 2 [facility] Medications Current Medications Medication Drug Class(es) Dates Sig (Normalized) Sig (Original) calcium carbonate 1000 mg oral tablet (8 sources) take 1000 mg by mouth once daily in the morning Calcium Carbonate (CALCIUM 500 PO) Take 1,000 mg by mouth daily every morning. 0 Active cetirizine hydrochloride 10 mg oral tablet (9 sources) Histamine-1 Receptor Antagonist take 1 tablet by mouth once daily as needed cetirizine 10 MG tablet Take 1 tablet by mouth daily as needed. 0 Active chlorhexidine gluconate 1.2 mg/ml mouthwash (10 sources) Start: 07-21-2022 End: 07-22-2022 chlorhexidine 0.12 % Solution oral solution Take 15 mL by mouth 4 times daily. 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; Translations: [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, part unspecified] Onset: 07-24-2022 Chronic Complications of surgical procedures or medical care (1 source) Disorder of skin; Translations: [Other postprocedural complications of skin and subcutaneous tissue] Episodic Diabetes mellitus without complication (8 sources) Type 2 diabetes mellitus without complication; Translations: [Type 2 diabetes mellitus without complications] Onset: 07-05-2022 Chronic Disorders of lipid metabolism (8 sources) Hyperlipidemia; Translations: [Hyperlipidemia, unspecified] Onset: 07-05-2022 Chronic Esophageal disorders (8 sources) Gastroesophageal reflux disease; Translations: [Gastro-esophageal reflux disease without esophagitis] Onset: 07-05-2022 Chronic Osteoarthritis (8 sources) Arthritis; Translations: [Unspecified osteoarthritis, unspecified site] Onset: 07-05-2022 Chronic Other connective tissue disease (1 source) Full thickness rotator cuff tear; Translations: [Complete rotator cuff tear or rupture of right shoulder, not specified as traumatic] Onset: 06-18-2018 06-18-2018 Episodic Other connective tissue disease (1 source) Impingement syndrome of shoulder region; Translations: [Impingement syndrome of right shoulder] Onset: 06-18-2018 06-18-2018 Episodic Other nutritional; endocrine; and metabolic disorders (9 sources) Obese class I; Translations: [Obesity, unspecified] Onset: 06-13-2022 06-13-2022 Chronic Other nutritional; endocrine; and metabolic disorders (1 source) Body mass index 30+ - obesity; Translations: [Obesity, unspecified] Chronic Residual codes; unclassified (1 source) History of surgical procedure on mouth; Translations: [Other specified postprocedural states] Episodic Thyroid disorders (8 sources) Hypothyroidism; Translations: [Hypothyroidism, unspecified] Onset: 07-05-2022 Chronic Past or Other Problems Problem Classification Problem Date Documented Da te Episodic/Chronic Mood disorders (9 sources) Mood disorders Onset: 06-13-2022 Resolved: 06-25-2023 06-13-2022 Other gastrointestinal disorders (4 sources) H/O: Disorder; Translations: [Personal history of other diseases of the digestive system] Onset: 08-21-2022 Episodic Other gastrointestinal disorders (2 sources) Personal history of other diseases of the digestive system; Translations: [Personal history of other diseases of the digestive system] Onset: 08-21-2022 Episodic Residual codes; unclassified (8 sources) History of palpitations; Translations: [Personal history of other specified conditions] Onset: 07-05-2022 Episodic Residual codes; unclassified (7 sources) Postoperative state; Translations: [Other specified postprocedural states] Onset: 07-12-2022 Episodic Unclassified (1 source) Problem Unclassified (1 source) Onset: 06-25-2023 06-25-2023 Results Test Name Value Interpretation Reference Range Facil ity Vital Signs Date Time Vital Sign Value Performing Clinician Facility 06-25-2023 13:50-0400 Body mass index (BMI) [Ratio] 36.03 kg/m2 Ricky Bingham MD Work Phone[facility] 06-25-2023 13:50-0400 Body temperature 97.5 [degF] Ricky Bingham MD Work Phone: [facility] 06-25-2023 13:50-0400 Body weight 89.36 kg Ricky Bingham MD Work Phone: [facility] 06-25-2023 13:50-0400 Diastolic blood pressure 58 mm[Hg] Ricky Bingham MD Work Phone: [facility] 09-13-2023 13:50-0400 Heart rate 85 /min Ricky Bingham MD Work Phone: [facility] 06-25-2023 13:50-0400 Respiratory rate 16 /min Ricky Bingham MD Work Phone: [facility] 06-25-2023 13:50-0400 SaO2% (BldA) [Mass fraction] 98 % Ricky Bingham MD Work Phone: [facility] 06-25-2023 13:50-0400 Systolic blood pressure 110 mm[Hg] Ricky Bingham MD Work Phone: [facility] 11-20-2022 13:54-0500 Body mass index (BMI) [Ratio] 34.88 kg/m2 Heather Gonzalo PA-C Work Phone: [facility] 11-20-2022 13:54-0500 Body temperature 96.21 [degF] Heather Gonzalo PA-C Work Phone: [facility] 11-20-2022 13:54-0500 Body weight 86.5 kg Heather Gonzalo PA-C Work Phone: [facility] 11-20-2022 13:54-0500 Diastolic blood pressure 71 mm[Hg] Heather Crabtreelman PA-C Work Phone: [facility] 11-20-2022 13:54-0500 Heart rate 71 /min Heather Gonzalo PA-C Work Phone: [facility] 11-20-2022 13:54-0500 Respiratory rate 16 /min Heather Crabtreelman PA-C Work Phone: [facility] 11-20-2022 13:54-0500 SaO2% (BldA) [Mass fraction] 98 % Heather Crabtreelman PA-C Work Phone: [facility] 11-20-2022 13:54-0500 Systolic blood pressure 130 mm[Hg] Heather Sánchez PA-C Work Phone: [facility] 08-21-2022 14:38-0500 Body mass index (BMI) [Ratio] 34.02 kg/m2 Ricky Bingham MD Work Phone: [facility] 08-21-2022 14:38-0500 Body temperature 96.01 [degF] Ricky Bingham MD Work Phone: [facility] 08-21-2022 14:38-0500 Body weight 84.37 kg Ricky Bingham MD Work Phone: [facility] 08-21-2022 14:38-0500 Diastolic blood pressure 60 mm[Hg] Ricky Bingham MD Work Phone: [facility] 08-21-2022 14:38-0500 Heart rate 73 /min Ricky Bingham MD Work Phone: [facility] 08-21-2022 14:38-0500 Respiratory rate 18 /min Ricky Bingham MD Work Phone: [facility] 08-21-2022 14:38-0500 SaO2% (BldA) [Mass fraction] 98 % Ricky Bingham MD Work Phone: [facility] 08-21-2022 14:38-0500 Systolic blood pressure 123 mm[Hg] Ricky Bingham MD Work Phone: [facility] 07-24-2022 14:52-0400 Body mass index (BMI) [Ratio] 32.89 kg/m2 Ricky Bingham MD Work Phone: [facility] 07-24-2022 14:52-0400 Body temperature 96.49 [degF] Ricky Bingham MD Work Phone: [facility] 07-24-2022 14:52-0400 Body weight 81.56 kg Ricky Bingham MD Work Phone: [facility] 07-24-2022 14:52-0400 Diastolic blood pressure 75 mm[Hg] Ricky Bingham MD Work Phone: [facility] 07-24-2022 14:52-0400 Heart rate 84 /min Ricky Bingham MD Work Phone: [facility] 07-24-2022 14:52-0400 Respiratory rate 16 /min Ricky Bingham MD Work Phone: [facility] 07-24-2022 14:52-0400 SaO2% (BldA) [Mass fraction] 93 % Ricky Bingham MD Work Phone: [facility] 07-24-2022 14:52-0400 Systolic blood pressure 115 mm[Hg] Ricky Bingham MD Work Phone: 3(677)967-883027 [address] 07-22-2022 09:38-0400 Body temperature 98.1 [degF] Noemi Ovalle MD Work Phone: 4(154)496-438653 [place] [address] 07-22-2022 09:38-0400 Diastolic blood pressure 59 mm[Hg] Noemi Ovalle MD Work Phone: 9(579)038-142553 [place] [address] 07-22-2022 09:38-0400 Heart rate 70 /min Noemi Ovalle MD Work Phone: 3(300)068-685453 [place] [address] 07-22-2022 09:38-0400 Respiratory rate 17 /min Noemi Ovalle MD Work Phone: 4(715)616-546653 [place] [address] 07-22-2022 09:38-0400 SaO2% (BldA) [Mass fraction] 97 % Noemi Ovalle MD Work Phone: 8(597)511-606453 [place] [address] 07-22-2022 09:38-0400 Systolic blood pressure 111 mm[Hg] Noemi Ovalle MD Work Phone: [facility] 07-21-2022 10:47-0400 Body height 157.5 cm Noemi Ovalle MD Work Phone: [facility] 07-17-2022 08:00-0400 Body temperature 98.91 [degF] Ricky Bingham MD Work Phone: [facility] 07-17-2022 08:00-0400 Diastolic blood pressure 64 mm[Hg] Ricky Bingham MD Work Phone: [facility] 07-17-2022 08:00-0400 Heart rate 66 /min Ricky Bingham MD Work Phone: [facility] 07-17-2022 08:00-0400 Respiratory rate 16 /min Ricky Bingham MD Work Phone: [facility] 07-17-2022 08:00-0400 SaO2% (BldA) [Mass fraction] 98 % Ricky Bingham MD Work Phone: [facility] 07-17-2022 08:00-0400 Systolic blood pressure 142 mm[Hg] Ricky Bingham MD Work Phone: [facility] 07-12-2022 14:25-0400 Body height 157.5 cm Ricky Bingham MD Work Phone: [facility] 07-12-2022 14:25-0400 Body mass index (BMI) [Ratio] 35.48 kg/m2 Ricky Bingham MD Work Phone: [facility] 07-12-2022 14:25-0400 Body weight 88 kg Ricky Bingham MD Work Phone: [facility] 07-03-2022 12:14-0400 Body height 162.6 cm Heather Sánchez PA-C Work Phone: [facility] 07-03-2022 12:14-0400 Diastolic blood pressure 66 mm[Hg] Heather MCKEON-C Work Phone: [facility] 07-03-2022 12:14-0400 Heart rate 71 /min Heather Sánchez PA-C Work Phone: [facility] 07-03-2022 12:14-0400 Systolic blood pressure 125 mm[Hg] Heather MCKEON-C Work Phone: [facility] 07-03-2022 09:08-0400 Body height 162.6 cm Julia Rae MD Work Phone: 1(207)718-129298 [address] 07-03-2022 09:08-0400 Body mass index (BMI) [Ratio] 33.13 kg/m2 Julia Rae MD Work Phone: 7(852)435-918698 [address] 07-03-2022 09:08-0400 Body temperature 97.59 [degF] Julia Rae MD Work Phone: 0(281)322-772428 [place] [address] 07-03-2022 09:08-0400 Body weight 87.54 kg Julia Rae MD Work Phone: 0(363)148-798498 [address] 07-03-2022 09:08-0400 Diastolic blood pressure 74 mm[Hg] Julia Rae MD Work Phone: [facility] 07-03-2022 09:08-0400 Heart rate 68 /min Julia Rae MD Work Phone: 2(632)130-252328 [place] [address] 07-03-2022 09:08-0400 Respiratory rate 18 /min Julia Rae MD Work Phone: 3(090)908-379498 [address] 07-03-2022 09:08-0400 SaO2% (BldA) [Mass fraction] 96 % Julia Rae MD Work Phone: 7(628)241-714928 [place] [address] 07-03-2022 09:08-0400 Systolic blood pressure 118 mm[Hg] Julia Rae MD Work Phone: [facility] 06-13-2022 12:44-0400 Body height 162.6 cm Ricky Bingham MD Work Phone: [facility] 06-13-2022 12:44-0400 Body mass index (BMI) [Ratio] 33.35 kg/m2 Ricky Bingham MD Work Phone: [facility] 06-13-2022 12:44-0400 Body temperature 97.5 [degF] Ricky Bingham MD Work Phone: [facility] 06-13-2022 12:44-0400 Body weight 88.13 kg Ricky Bingham MD Work Phone: [facility] 06-13-2022 12:44-0400 Diastolic blood pressure 61 mm[Hg] Ricky Bingham MD Work Phone: [facility] 06-13-2022 12:44-0400 Heart rate 67 /min Ricky Bingham MD Work Phone: [facility] 06-13-2022 12:44-0400 Respiratory rate 20 /min Ricky Bingham MD Work Phone: [facility] 06-13-2022 12:44-0400 SaO2% (BldA) [Mass fraction] 95 % Ricky Bingham MD Work Phone: [facility] 06-13-2022 12:44-0400 Systolic blood pressure 129 mm[Hg] Ricky Bingham MD Work Phone: [facility] NEGATED: Highlighted [id number] 08:07-0400 BMI (Body Mass Index) 37.63 kg/m2 [facility] Work Phone: NEGATED: Highlighted [id number] 08:07-0400 BP Diastolic 79 mm[Hg] [facility] Work Phone: NEGATED: Highlighted [id number] 08:07-0400 BP Systolic 121 mm[Hg] Ashley Teddy Crystal [facility] Work Phone: NEGATED: Highlighted [id number] 08:07-0400 Height 157.48 cm Ashley Teddy Crystal [facility] Work Phone: NEGATED: Highlighted [id number] 08:07-0400 Height 157 cm Ashley Teddy Crystal [facility] Work Phone: NEGATED: Highlighted [id number] 08:07-0400 Pulse (Heart Rate) 73 /min Ashleyya Espinal [facility] Work Phone: NEGATED: Highlighted [id number] 08:07-0400 Weight 92.99 kg Ashleynelsy Espinal Crystal [facility] Work Phone: NEGATED: Highlighted [id number] 08:07-0400 Weight 93 kg Ashley Espinal Crystal [facility] Work Phone: Encounters Encounter Date Encounter Type Care Provider Facility Start: 06-25-2023 ambulatory RICKY BINGHAM Facility :[facility] Start: 06-25-2023 End: 06-25-2023 Office outpatient visit 15 minutes Ricky Bingham MD Work Phone: Department of Otolaryngology Procedures Date Procedure Procedure Detail Performing Clinician Start: 06-25-2023 Follow-up visit Follow-up RICKY BINGHAM Start: 07-22-2022 Blood count hematocrit Tomasa Aburto AUTOMATIC PATTERN EDGER-[employer] Work Phone: Start: 07-21-2022 Glucose measurement, blood Jose Devine MD Work Phone: Start: 07-21-2022 Blood count hematocrit Tomasa Aburto AUTOMATIC PATTERN EDGER-[employer] Work Phone: Start: 07-21-2022 Glucose measurement, blood Jose Devine MD Work Phone: Start: 07-21-2022 CBC AND ELECTRONIC DIFF Ilene Jd Attention Pointerry AUTOMATIC PATTERN EDGER-[employer] Work Phone: Start: 07-21-2022 Complete blood count with white cell differential, automated Ilene D Vendavoyberry AUTOMATIC PATTERN EDGER-[employer]PC Work Phone: Start: 07-21-2022 LT BLUE TOP TUBE Ilene D Vendavoyberry AUTOMATIC PATTERN EDGER-[employer]PC Work Phone: Start: 07-17-2022 Glucose measurement, blood Ricky Bingham MD Work Phone: Start: 07-17-2022 Glucose measurement, blood Ricky Bingham MD Work Phone: Start: 07-17-2022 Assay of magnesium Chano Burns MD Work Phone: Start: 07-16-2022 Glucose measurement, blood Ricky Bingham MD Work Phone: Start: 07-16-2022 Glucose measurement, blood Ricky Bingham MD Work Phone: Start: 07-16-2022 Glucose measurement, blood Ricky Bingham MD Work Phone: Start: 07-16-2022 Assay of magnesium Chano Burns MD Work Phone: Start: 07-16-2022 Glucose measurement, blood Ricky Bingham MD Work Phone: Start: 07-15-2022 Glucose measurement, blood Ricky Bingham MD Work Phone: Start: 07-15-2022 Glucose measurement, blood Ricky Bingham MD Work Phone: Start: 07-15-2022 Glucose measurement, blood Ricky Bingham MD Work Phone: Start: 07-15-2022 Assay of magnesium Chano Burns MD Work Phone: Start: 07-15-2022 Glucose measurement, blood Ricky Bingham MD Work Phone: Start: 07-14-2022 Radiologic exam abdo men 1 view Tish Alvarado MD Work Phone: Start: 07-14-2022 Glucose measurement, blood Ricky Bingham MD Work Phone: Start: 07-14-2022 Glucose measurement, blood Ricky Bingham MD Work Phone: Start: 07-14-2022 Glucose measurement, blood Ricky Bingham MD Work Phone: Start: 07-14-2022 Assay of magnesium Chano Burns MD Work Phone: Start: 07-14-2022 Glucose measurement, blood Ricky Bingham MD Work Phone: Start: 07-13-2022 Glucose measurement, blood Ricky Bingham MD Work Phone: Start: 07-13-2022 Glucose measurement, blood Ricky Bingham MD Work Phone: Start: 07-13-2022 Glucose measurement, blood Ricky Bingham MD Work Phone: Start: 07-13-2022 Assay of magnesium Chano Burns MD Work Phone: Start: 07-12-2022 Glucose measurement, blood Ricky Bingham MD Work Phone: Start: 07-12-2022 Glucose measurement, blood Ricky Bingham MD Work Phone: Start: 07-12-2022 Radiologic exam abdo men 1 view Taylor Burns MD Work Phone: Start: 07-12-2022 CONTINUOUS CARDIAC MONITORING STRIP Other Other Start: 07-12-2022 Glucose measurement, blood Ricky Bingham MD Work Phone: Start: 07-12-2022 End: 07-12-2022 Glucose measurement, blood Ricky arredondo MD Work Phone: Start: 07-12-2022 Glucose measurement, blood Ricky Bingham MD Work Phone: Start: 07-12-2022 End: 07-12-2022 Cervical lymphadec modified radical neck dsj Ricky Bingham MD Work Phone: Start: 07-12-2022 End: 07-12-2022 Glossectomy Ricky Bingham MD Work Phone: Start: 07-12-2022 End: 07-12-2022 Split agrft f/s/n/h/f/g/m/d gt 1st 100 cm/1 % Ricky Bingham MD Work Phone: Start: 07-12-2022 CONTINUOUS CARDIAC MONITORING STRIP Other Other Start: 07-12-2022 Glucose measurement, blood Ricky Bingham MD Work Phone: Start: 07-12-2022 ABORH TYPE RECONFIRMATION Marlena PRECIADO Start: 07-03-2022 Antibody screen Julia nunez MD Work Phone: Start: 07-03-2022 Blood typing serologic abo Julia Rae MD Work Phone: Start: 07-03-2022 CBC AND ELECTRONIC DIFF Julia Rae MD Work Phone: Start: 07-03-2022 Complete blood count with white cell differential, automated Julia Rae MD Work Phone: Start: 07-03-2022 Creatinine blood Julia Rae MD Work Phone: Start: 06-18-2018 End: 06-18-2018 Blood pressure within normal parameters - no follow-up required Maxime Astorga MD Work Phone: Start: 06-18-2018 End: 06-18-2018 BMI documented as above normal parameters - follow-up documented Maxime Astorga MD Work Phone: Start: 06-18-2018 End: 06-18-2018 Current medications documented Maxime Astorga MD Work Phone: Start: 06-18-2018 End: 06-18-2018 Pain assessment documented as positive - follow-up documented Maxime Astorga MD Work Phone: Start: 06-18-2018 End: 06-18-2018 SLINGSHOT 2 (BREG) Maxime Astorga MD Work Phone: Start: 06-18-2018 End: 06-18-2018 Tobacco non-user Maxime Astorga MD Work Phone: Plan of Treatment Date Care Activity Detail Author Start: 03-29-2031 Tetanus vaccination [facility] Start: 12-30-2023 End: 12-30-2023 Patient encounter procedure 12/30/2023 2:30 PM EDT Office Visit Department of Otolaryngology [address] [place] [id number] Heather Sánchez, SHREYAS [address] [place] [address] Department of Otolaryngology Start: 07-26-2023 Potassium [Moles/volume] in Serum or Plasma POTASSIUM [facility] Start: 07-17-2023 Potassium [Moles/volume] in Serum or Plasma POTASSIUM [facility] Start: 07-03-2023 Potassium [Moles/volume] in Serum or Plasma POTASSIUM [facility] Start: 06-13-2023 COVID-19 VACCINE ( season) COVID-19 VACCINE ( season) [facility] Start: 06-13-2023 Influenza vaccination INFLUENZA VACCINE (#1) [facility] Start: 02-19-2023 End: 02-19-2023 Patient encounter procedure 02/19/2023 Office Visit Otolaryngology Ricky Bingham MD [address] [place] [id number] Department of Otolaryngology Start: 11-20-2022 End: 11-20-2022 Patient encounter procedure 11/20/2022 Office Visit Otolaryngology Ricky Bingham MD [address] [place] [address] Department of Otolaryngology Start: 07-24-2022 End: 07-24-2022 ambulatory 07/24/2022 Rehab Services Visit Voice & Swallowing Jayda Block, DIESEL ROLLER OPERATOR [facility] Start: 07-24-2022 End: 07-24-2022 Patient encounter procedure 07/24/2022 Office Visit Otolaryngology Ricky Bingham MD [address] [place] [address] Department of Otolaryngology Start: 07-22-2022 COVID-19 VACCINE (2 - Pfizer series) COVID-19 VACCINE (2 - Pfizer series) [facility] Start: 07-12-2022 End: 07-12-2022 Cervical lymphadec modified radical neck dsj LYMPHADENECTOMY CERVICAL (MODIFIED RADICAL NECK DISSECTION) 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 07/12/2022 7:00 AM EDT [facility] Start: 07-12-2022 End: 07-12-2022 Evaluation and management of inpatient [facility] PERIOP Immunizations Immunization Date Immunization Notes Care Provider Fa cility 07-01-2022 influenza virus vaccine, unspecified formulation Ricky Bingham MD Work Phone: [facility] 07-13-2021 influenza virus vaccine, unspecified formulation Ricky Bingham MD Work Phone: [facility] 04-18-2020 zoster vaccine, unspecified formulation Noemi Ovalle MD Work Phone: [facility] No information available. Ashley Espinal [facility] Work Phone: Payers Date Payer Category Payer Medicare MEDICARE MEDICAR E A AND B [id number] 2022-Present [address] [place] [address] [id number] 2022 Medicare [id number] 2022 Unknown AARP AARP [id number] 2022-Present [address] [place] [address] [id number] 2022 Unknown [id number] 1955 Unknown [id number] 1955 Unknown [id number] 1955 Unknown [id number] 1955 Unknown [id number] Social History Date Type Detail Facility Start: 06-13-2022 Tobacco smoking status NHIS Never smoked tobacco [facility] Start: 06-13-2022 Tobacco use and exposure Smokeless tobacco non-user [facility] Start: 06-13-2022 End: 08-21-2022 Alcohol intake Lifetime non-drinker (finding) [facility] Start: 1955 Sex Assigned At Not on file [facility] Start: 07-05-2022 End: 07-24-2022 Exposure to SARS-CoV-2 (event) Not sure [facility] Start: 11-10-2022 End: 11-20-2022 Exposure to SARS-CoV-2 (event) Unable to assess [facility] Start: 08-21-2022 End: 06-25-2023 History of Social function [facility] Start: 08-21-2022 End: 06-25-2023 Tobacco use panel [facility] Adolescent depressio n screening assessment 0 [facility] NEGATED: Highlighted rowStart: 06-18-2018 End: 06-18-2018 Alcohol use Never smoker [facility] Work Phone: NEGATED: Highlighted rowStart: 06-18-2018 End: 06-18-2018 Details of drug misuse behavior DRUG USE No [facility] Work Phone: NEGATED: Highlighted rowStart: 06-18-2018 End: 06-18-2018 Assertion Never smoker [facility] Work Phone: Medical Equipment Procedure Code Equipment Code Equipment Origin al Text Equipment Identifier Dates Hemostat Surgice l Powder 3 Grams Absorbable - [id number] Start: 07-12-2022 Clinical Notes 06-13-2022 to 06-25-2023 SHREYAS Sorensen - 06/25/2023 2:15 PM EDTSfelecia Bingham MD - 06/25/2023 2:15 PM EDTPatient InstructionsHeather Sánchez PA-C - 11/20/2022 2:15 PM ESTPatient InstructionsPatient Instructions Note Date & Type Note Facility 06-25-2023 History of Presen t illness Narrative HPI: Astrid Dumont was seen 06/25/2023 in the [facility] for follow up visit 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 She is s/p control of oropharyngeal bleed on 07/24/22. Patient presents today for scheduled follow up. Last visit February. She had biopsies with Dr. Reeves at that time. Since the last visit she has had a precancerous lesion on her lower lip and on her face treated. She denies other new head and neck issues. Nursing documentation has been reviewed. 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 SECONDARY N/A 07/24/2022 Laterality: N/A; Surgeon: Ricky Bingham MD; Location: [facility] GLOSSECTOMY LESS THAN 1/2 TONGUE Right 07/12/2022 Laterality: Right; Surgeon: Ricky Bingham MD; Location: [facility] MAIN OR GRAFT SKIN SPLIT THICKNESS EAR EYELID FACE MOUTH ORBIT (STSG) N/A 07/12/2022 Laterality: N/A; Surgeon: Ricky Bingham MD; Location: [facility] MAIN OR LYMPHADENECTOMY CERVICAL (MODIFIED RADICAL NECK DISSECTION) Right 07/12/2022 Laterality: Right; Surgeon: Ricky Bingham MD; Location: [facility] MAIN OR KNEE REPLACEMENT Right KNEE REPLACEMENT Left LITHOTRIPSY ROTATOR CUFF REPAIR Current Outpatient Medications Medication Sig Dispense Refill acetaminophen 325 MG tablet Take 2 tablets by mouth every 6 hours as needed for Moderate Pain or Severe Pain. allopurinol 300 MG tablet Take 100 mg by mouth daily every morning. Atenolol 25 MG tablet Take 1 tablet by mouth daily every morning. atorvastatin 10 MG tablet Take 1 tablet by mouth at bedtime. Calcium Carbonate (CALCIUM 500 PO) Take 1,000 mg by mouth daily every morning. cetirizine 10 MG tablet Take 1 tablet by mouth daily as needed. chlorhexidine 0.12 % Solution oral solution Take 15 mL by mouth every 12 hours for 14 days. 420 mL 0 cholecalciferol 50 MCG (2000 UT) capsule Take 1 capsule by mouth daily every morning. Clotrimazole 10 MG Dayday Take 1 tablet by mouth 5 times daily for 7 days. 35 tablet 0 escitalopram 5 MG tablet Take 2 tablets by mouth daily every morning. First-BLM mouthwash (commercial containing Fzryuxvbw-Obuelanum-Sz/MgHydr-Sim eth) 1 tbsp Q4-6 hrs PRN mouth pain. Swish x 1 min, then spit. 237 mL 1 Gabapentin (Neurontin) 100 MG capsule Take 1 capsule by mouth 3 times daily. 90 capsule 1 hydroCHLOROthiazide 25 MG tablet Take 1 tablet by mouth daily every morning. hydroxychloroquine 200 MG tablet Take 1 tablet by mouth 2 times daily. Levothyroxine Sodium (LEVOTHYROXINE PO) Take 75 mcg by mouth at bedtime. Magnesium Oxide (MAG-OX 400 PO) Take 400 mg by mouth 2 times daily. Melatonin 5 MG capsule Take 1 capsule by mouth as needed. metFORMIN 500 MG tablet Take 1 tablet by mouth 2 times daily with meals. Multiple Vitamins-Minerals (WOMENS 50+ MULTI VITAMIN/MIN PO) Take 1 tablet by mouth daily every morning. omeprazole [address] capsule 1 cap(s) Potassium Citrate 15 MEQ (1620 MG) Tab CR 1 No current facility-administered medications for this visit. Allergies Allergen Reactions *Seasonal Sulfa Antibiotics Rash Exam: BP 110/58 (BP Location: Left arm, BP Position: Sitting) Pulse 85 Temp 97.5 F (36.4 C) (Temporal) Resp 16 Wt 89.4 kg (197 lb) SpO2 98% BMI 36.03 kg/m Smoking Status Never Documented vital signs from today's visit reviewed. Physical exam including head and neck examination of the oral cavity, oropharynx, larynx, and hypopharynx including indirect mirror exam as well as inspection and palpation of the face, parotid and neck is remarkable for findings consistent with posttreatment postoperative changes and negative for new lesions, masses or lymphadenopathy. No active infection. Airway is adequate. 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 She is s/p control of oropharyngeal bleed on 07/24. WILLY on exam today. - Follow up with Dr. Reeves - Follow up in surveillance in 4 months Attending Physician Note I independently interviewed, examined and formulated the medical decision making. Details of my interview, examination findings, and medical decision-making confirmed the findings above. I have personally amended the below documentation where appropriate. I saw this patient with Heather Sánchez and personally wrote the impression and plan. Impression/Plan: Doing well, no evidence of disease. Continue tumor surveillance. documented in this encounter [facility] 06-25-2023 Instructions Maribel Durán RN - 06/25/2023 2:15 PM EDT Please call Dr. Bingham's nurse at [phone] if you notice any new lumps in head or neck, new onset of difficulty with swallowing, persistent ear pain, hoarseness or new pain in head and neck that does not go away for 2 weeks. For covid vaccine call [phone] ([phone]). 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 She is s/p control of oropharyngeal bleed on 07/24/22. Patient presents today for scheduled follow up. She notes that over the last few weeks she has had increasing nerve type sensitivity and pain along her right neck/chest/shoulder region. Tylenol does not really help. She has some buccal mucosa tenderness. She also notes that she has a few lip lesions that Dr. Reeves had wanted to follow, but she has not yet been back to see her in follow up. Nursing documentation has been reviewed. 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 SECONDARY N/A 07/24/2022 Laterality: N/A; Surgeon: Ricky Bingham MD; Location: [facility] MA[facility] OR GLOSSECTOMY LESS THAN 1/2 TONGUE Right 07/12/2022 Laterality: Right; Surgeon: Ricky Bingham MD; Location: [facility] MAIN OR GRAFT SKIN SPLIT THICKNESS EAR EYELID FACE MOUTH ORBIT (STSG) N/A 07/12/2022 Laterality: N/A; Surgeon: Ricky Bingham MD; Location: [facility] MAIN OR LYMPHADENECTOMY CERVICAL (MODIFIED RADICAL NECK DISSECTION) Right 07/12/2022 Laterality: Right; Surgeon: Ricky Bingham MD; Location: [facility] MAIN OR KNEE REPLACEMENT Right KNEE REPLACEMENT Left LITHOTRIPSY ROTATOR CUFF REPAIR Current Outpatient Medications Medication Sig Dispense Refill acetaminophen 325 MG tablet Take 2 tablets by mouth every 6 hours as needed for Moderate Pain or Severe Pain. allopurinol 300 MG tablet Take 100 mg by mouth daily every morning. atenolol 50 MG tablet Take 25 mg by mouth daily every morning. atorvastatin 10 MG tablet Take 10 mg by mouth at bedtime. Calcium Carbonate (CALCIUM 500 PO) Take 1,000 mg by mouth daily every morning. cetirizine 10 MG tablet Take 10 mg by mouth daily as needed. chlorhexidine 0.12 % Solution oral solution Take 15 mL by mouth every 12 hours for 14 days. 420 mL 0 cholecalciferol 50 MCG (2000 UT) capsule Take 2,000 Units by mouth daily every morning. Eluxadoline 100 MG tablet Take 100 mg by mouth as needed. (Viberzi) Empagliflozin 10 MG tablet Take 25 mg by mouth daily every morning. escitalopram 5 MG tablet Take 10 mg by mouth daily every morning. First-BLM mouthwash (commercial containing Isxbbxaes-Supyoqzmi-Cc/MgHydr-Sim eth) 1 tbsp Q4-6 hrs PRN mouth pain. Swish x 1 min, then spit. (Patient not taking: Reported on 08/21/2022) 237 mL 1 hydroCHLOROthiazide 25 MG tablet Take 25 mg by mouth daily every morning. hydroxychloroquine 200 MG tablet Take 200 mg by mouth 2 times daily. Levothyroxine Sodium (LEVOTHYROXINE PO) Take 75 mcg by mouth at bedtime. Magnesium Oxide (MAG-OX 400 PO) Take 400 mg by mouth 2 times daily. Melatonin 5 MG capsule Take 5 mg by mouth as needed. metFORMIN 500 MG tablet Take 500 mg by mouth 2 times daily with meals. Multiple Vitamins-Minerals (WOMENS 50+ MULTI VITAMIN/MIN PO) Take 1 tablet by mouth daily every morning. Potassium Citrate 15 MEQ (1620 MG) Tab CR 1 No current facility-administered medications for this visit. Allergies Allergen Reactions *Seasonal Sulfa Antibiotics Rash Exam: BP 130/71 (BP Location: Left arm, BP Position: Sitting) Pulse 71 Temp 96.2 F (35.7 C) (Temporal) Resp 16 Wt 86.5 kg (190 lb 11.2 oz) SpO2 98% BMI 34.88 kg/m Smoking Status Never Documented vital signs from today's visit reviewed. Physical exam including head and neck examination of the oral cavity, oropharynx, larynx, and hypopharynx including indirect mirror exam as well as inspection and palpation of the face, parotid and neck is remarkable for findings consistent with posttreatment postoperative changes and negative for new lesions, masses or lymphadenopathy. Healing well. No active infection. Airway is adequate. 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 She is s/p control of oropharyngeal bleed on 07/24. WILLY on exam today. - will trial gabapentin for nerve pain - Clotrimazole dayday X 7 days - Follow up with Dr. Reeves RTC in 3 months or sooner if needed. documented in this encounter [facility] 11-20-2022 Instructions Maribel Durán RN - 11/20/2022 2:15 PM EST Please call Dr. Bingham's nurse at [phone] if you notice any new lumps in head or neck, new onset of difficulty with swallowing, persistent ear pain, hoarseness or new pain in head and neck that does not go away for 2 weeks. For covid vaccine call [phone] ([phone]). documented in this encounter [facility] 11-20-2022 Miscellaneous Notes Addended by: HEATHER SÁNCHEZ on: 11/20/2022 02:45 PM Modules accepted: Orders documented in this encounter [facility] 11-20-2022 Note Addended by: HEATHER SÁNCHEZ on: 11/20/2022 02:45 PM Modules accepted: Orders [facility] 08-21-2022 History of Presen t illness Narrative Images from the original note were not included. Chief Complaint: SCCa Right Postero-Lateral Tongue HPI: 67 yo F, never smoker referred by Dr. Reeves for surgical evaluation of T1N0 SCCa right lateral tongue s/p Right partial glossectomy, Right selective neck dissection, levels I-IV, [place] of split-thickness skin graft 5 cm x 7 cm from right anterolateral thigh. She is s/p control of oropharyngeal bleed from dorsal lingual artery on 07/24/22. She is doing well and has had no oropharyngeal bleeding since her last visit. Continues to have a lisp while speaking. She noted a small knot near left neck incision- removed suture. Able to tolerate PO diet. Denies neck masses, dysphagia, odynophagia, dyspnea, dysphonia. Nursing documentation has been reviewed. 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 SECONDARY N/A 07/24/2022 Laterality: N/A; Surgeon: Ricky Bingham MD; Location: [facility] MAIN OR GLOSSECTOMY LESS THAN 1/2 TONGUE Right 07/12/2022 Laterality: Right; Surgeon: Ricky Bingham MD; Location: [facility] MAIN OR GRAFT SKIN SPLIT THICKNESS EAR EYELID FACE MOUTH ORBIT (STSG) N/A 07/12/2022 Laterality: N/A; Surgeon: Ricky Bingham MD; Location: [facility] MAIN OR LYMPHADENECTOMY CERVICAL (MODIFIED RADICAL NECK DISSECTION) Right 07/12/2022 Laterality: Right; Surgeon: Ricky Bingham MD; Location: [facility] OR KNEE REPLACEMENT Right KNEE REPLACEMENT Left LITHOTRIPSY ROTATOR CUFF REPAIR Social History Social History Socioeconomic History Marital status: Spouse name: Not on file Number of children: Not on file Years of education: Not on file Highest education level: Not on file Occupational History Not on file Tobacco Use Smoking status: Never Smokeless tobacco: Never Vaping Use Vaping Use: Never used Substance and Sexual Activity Alcohol use: Never Drug use: Never Sexual activity: Not on file Other Topics Concern Not on file Social History Narrative Not on file Social Determinants of Health Financial Resource Strain: Not on file Food Insecurity: Not on file Transportation Needs: Not on file Physical Activity: Not on file Stress: Not on file Social Connections: Not on file Intimate Partner Violence: Not on file Housing Stability: Not on file Family History Family History Problem Relation Age of Onset Stroke Mother Coronary Artery Disease Father Myocardial Infarction Father Leukemia Brother Alcoholism Brother Medications: Current Outpatient Medications Medication Sig Dispense Refill acetaminophen 325 MG tablet Take 2 tablets by mouth every 6 hours as needed for Moderate Pain or Severe Pain. allopurinol 300 MG tablet Take 100 mg by mouth daily every morning. atenolol 50 MG tablet Take 25 mg by mouth daily every morning. atorvastatin 10 MG tablet Take 10 mg by mouth at bedtime. Calcium Carbonate (CALCIUM 500 PO) Take 1,000 mg by mouth daily every morning. cetirizine 10 MG tablet Take 10 mg by mouth daily as needed. chlorhexidine 0.12 % Solution oral solution Take 15 mL by mouth every 12 hours for 14 days. 420 mL 0 cholecalciferol 50 MCG (2000 UT) capsule Take 2,000 Units by mouth daily every morning. Eluxadoline 100 MG tablet Take 100 mg by mouth as needed. (Viberzi) Empagliflozin 10 MG tablet Take 25 mg by mouth daily every morning. escitalopram 5 MG tablet Take 10 mg by mouth daily every morning. First-BLM mouthwash (commercial containing Tfcobllys-Vlvgtphcd-Aa/MgHydr-Sim eth) 1 tbsp Q4-6 hrs PRN mouth pain. Swish x 1 min, then spit. 237 mL 1 hydroCHLOROthiazide 25 MG tablet Take 25 mg by mouth daily every morning. hydroxychloroquine 200 MG tablet Take 200 mg by mouth 2 times daily. Levothyroxine Sodium (LEVOTHYROXINE PO) Take 75 mcg by mouth at bedtime. Magnesium Oxide (MAG-OX 400 PO) Take 400 mg by mouth 2 times daily. Melatonin 5 MG capsule Take 5 mg by mouth as needed. metFORMIN 500 MG tablet Take 500 mg by mouth 2 times daily with meals. Multiple Vitamins-Minerals (WOMENS 50+ MULTI VITAMIN/MIN PO) Take 1 tablet by mouth daily every morning. (Patient not taking: Reported on 07/24/2022) Potassium Citrate 15 MEQ (1620 MG) Tab CR 1 No current facility-administered medications for this visit. Allergies: *seasonal and Sulfa antibiotics Immunizations: Immunization History Administered Date(s) Administered COVID-19 Vaccine, mRNA, Pfizer, Bivalent Booster 0.3 mL 07/01/2022 Review of Systems: Constitutional: Negative for fever, weight loss and weight gain. HENT: Negative for ear pain, sore throat and hoarseness. Negative for difficulty swallowing. Cardiovascular: Negative for chest pain and dyspnea on exertion (Can climb up 2 floors). Respiratory: Is not experiencing shortness of breath. Gastrointestinal: Negative for nausea and vomiting. Neurological: Negative for headaches. Psychiatric: The patient is not nervous/anxious. Musculoskeletal: Denies muscle pain/weakness Heme/Lymph: Negative for lymph nodes, easy bruising Physical Exam Vital Signs: Smoking Status Never General: Well-developed, well-nourished. No distress. Communication and Voice: Clear pitch, dysarthric as expected Respiratory Respiratory effort: Equal inspiration and expiration without stridor Cardiovascular Heart: regular rate and rhythm Peripheral Vascular: Warm extremities with equal pulses Neuro: Patient oriented to person, place, and time; Appropriate mood and affect; Gait is intact with no imbalance; Cranial nerves II-XII are intact Head and Face Inspection: Normocephalic and atraumatic without mass or lesion Palpation: Facial skeleton intact without bony stepoffs Facial Strength: Facial motility symmetric and full bilaterally Eyes: PERRLA. No nystagmus with normal extraocular motion bilaterally ENT Pinna: External ear intact and fully developed External canal: Canal is patent with intact skin Tympanic Membrane: Clear and mobile External nose: No scar or anatomic deformity Internal Nose: Septum intact and midline. No edema, polyp, or rhinorrhea. TMJ: No pain to palpation with full mobility Salivary Glands: No mass or tenderness Lips: No lesion. Oral cavity: STSG site open and raw well healed. STSG site on leg healing well. Oropharynx: No mass or lesion. Tonsillar fossa symmetric. Base of tongue soft without mass or induration. Neck Trachea: Midline trachea. Neck: right neck incision CDI Thyroid: No mass or nodularity. Lymphatics: No lymphadenopathy. Data Reviewed: No imaging has been performed at this time Pathologic Diagnosis Outside Slides [id number] (06/03/22) B. Right lateral tongue, incisional biopsy: Invasive squamous cell carcinoma. Pathologic Diagnosis A. Anterior re-resection #2: Negative For Carcinoma. B. Superior re-resection: Negative For Carcinoma. C. Posterior re-resection: Negative For Carcinoma. D. Inferior re-resection: Negative For Carcinoma. E. Deep re-resection: Negative For Carcinoma. F. Right partial glossectomy: Squamous Cell Carcinoma, Minimally Invasive - see synoptic report. G. Anterior re-resection #1: Negative For Carcinoma. H. Right level I neck dissection: Submandibular Gland, No Pathologic Change. Five Benign Lymph Nodes (0/5). I. Right level II neck dissection: Seventeen Benign Lymph Nodes (0/17). J. Right level III and IV neck dissection: Thirteen Benign Lymph Nodes (0/13). SYNOPTIC REPORT FOR CANCER OF THE LIP AND ORAL CAVITY: Procedure: right partial glossectomy and selective right neck dissection Tumor site: right lateral tongue Tumor focality: single Tumor size: 0.2 cm. Tumor gross configuration: endophytic WHO Histologic type: squamous cell carcinoma Tumor grade: well-differentiated Depth of Invasion [DOI]: < 0.1 cm. Lymphovascular invasion (LVI): absent Perineural invasion (PNI): absent Tumor extent: Intramucosal lesion: absent Deep Tissue (bone, deep muscle of tongue, maxillary sinus, skin): negative Margins: Main specimen margins: negative Additional separately submitted margins (frozen tissue specimens): negative Additional resection margins (non-frozen tissue): negative Distance of tumor to nearest margin: carcinoma is 0.5 cm from inked inferior margin in main specimen Lymph nodes: Number examined: 35 Number involved: none (0) Extranodal extension [ALMA]: N/A Size of largest metastatic ce deposit: N/A Additional pathologic findings: see line diagnoses Neoadjuvant therapy: none Ancillary Studies: none pTNM classification: pT1 N0 Impression/Plan: 67 yo F, never smoker with 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 She is s/p control of oropharyngeal bleed on 07/24. Doing very well and healing well. RTC in 3 months Attending Physician Note I independently interviewed, examined and formulated the medical decision making. Details of my interview, examination findings, and medical decision-making confirmed the findings below. I have personally amended the below documentation where appropriate. documented in this encounter [facility] 08-21-2022 Instructions Trish Castellon RN - 08/21/2022 3:15 PM EST Please call Dr. Bingham's nurse at [phone] if you notice any new lumps in head or neck, new onset of difficulty with swallowing, persistent ear pain, hoarseness or new pain in head and neck that does not go away for 2 weeks. For covid vaccine call [phone] ([phone]). documented in this encounter [facility] 07-24-2022 History of Presen t illness Narrative Images from the original note were not included. Chief Complaint: SCCa Right Postero-Lateral Tongue HPI: 67 yo F, never smoker referred by Dr. Reeves for surgical evaluation of T1N0 SCCa right lateral tongue s/p Right partial glossectomy, Right selective neck dissection, levels I-IV, [place] of split-thickness skin graft 5 cm x 7 cm from right anterolateral thigh. Last night the patient noted bleeding from the tongue- silver nitrate cautery in clinic. She continued to bleed and a bright red artery was noted. Will bring patient down to OR for control of bleeding. Still reports soreness of neck. Endorses good speech no dyspnea, dysphagia, SOB, neck masses. STSG site healing well. Nursing documentation has been reviewed. Past Medical History Past Medical History: Diagnosis Date Arthritis Diabetes mellitus Squamous cell carcinoma, keratinizing Past Surgical History Past Surgical History: Procedure Laterality Date GLOSSECTOMY LESS THAN 1/2 TONGUE Right 07/12/2022 Laterality: Right; Surgeon: Ricky Bingham MD; Location: [facility] MAIN OR GRAFT SKIN SPLIT THICKNESS EAR EYELID FACE MOUTH ORBIT (STSG) N/A 07/12/2022 Laterality: N/A; Surgeon: Ricky Bingham MD; Location: [facility] MAIN OR LYMPHADENECTOMY CERVICAL (MODIFIED RADICAL NECK DISSECTION) Right 07/12/2022 Laterality: Right; Surgeon: Ricky Bingham MD; Location: [facility] MAIN OR KNEE REPLACEMENT Right KNEE REPLACEMENT Left LITHOTRIPSY ROTATOR CUFF REPAIR Social History Social History Socioeconomic History Marital status: Spouse name: Not on file Number of children: Not on file Years of education: Not on file Highest education level: Not on file Occupational History Not on file Tobacco Use Smoking status: Never Smokeless tobacco: Never Vaping Use Vaping Use: Never used Substance and Sexual Activity Alcohol use: Never Drug use: Never Sexual activity: Not on file Other Topics Concern Not on file Social History Narrative Not on file Social Determinants of Health Financial Resource Strain: Not on file Food Insecurity: Not on file Transportation Needs: Not on file Physical Activity: Not on file Stress: Not on file Social Connections: Not on file Intimate Partner Violence: Not on file Housing Stability: Not on file Family History Family History Problem Relation Age of Onset Stroke Mother Coronary Artery Disease Father Myocardial Infarction Father Leukemia Brother Alcoholism Brother Medications: Current Outpatient Medications Medication Sig Dispense Refill acetaminophen 325 MG tablet Take 2 tablets by mouth every 6 hours as needed for Moderate Pain or Severe Pain. allopurinol 300 MG tablet Take 100 mg by mouth daily every morning. atenolol 50 MG tablet Take 25 mg by mouth daily every morning. atorvastatin 10 MG tablet Take 10 mg by mouth at bedtime. Calcium Carbonate (CALCIUM 500 PO) Take 1,000 mg by mouth daily every morning. cetirizine 10 MG tablet Take 10 mg by mouth daily as needed. chlorhexidine 0.12 % Solution oral solution Take 15 mL by mouth every 12 hours for 14 days. 420 mL 0 chlorhexidine 0.12 % Solution oral solution Take 15 mL by mouth 4 times daily. Rinse mouth with 15mL for 30sec then spit BID 473 mL 0 cholecalciferol 50 MCG (2000 UT) capsule Take 2,000 Units by mouth daily every morning. Eluxadoline 100 MG tablet Take 100 mg by mouth as needed. (Viberzi) Empagliflozin 10 MG tablet Take 25 mg by mouth daily every morning. escitalopram 5 MG tablet Take 10 mg by mouth daily every morning. hydroCHLOROthiazide 25 MG tablet Take 25 mg by mouth daily every morning. hydroxychloroquine 200 MG tablet Take 200 mg by mouth 2 times daily. Levothyroxine Sodium (LEVOTHYROXINE PO) Take 75 mcg by mouth at bedtime. Magnesium Oxide (MAG-OX 400 PO) Take 400 mg by mouth 2 times daily. Melatonin 5 MG capsule Take 5 mg by mouth as needed. metFORMIN 500 MG tablet Take 500 mg by mouth 2 times daily with meals. Potassium Citrate 15 MEQ (1620 MG) Tab CR 1 aspirin 81 MG Chew Tab chewable tablet Chew 81 mg daily every morning. (Patient not taking: Reported on 07/24/2022) First-BLM mouthwash (commercial containing Oyppgjbno-Upwuofwju-Fj/MgHydr-Sim eth) 1 tbsp Q4-6 hrs PRN mouth pain. Swish x 1 min, then spit. 237 mL 1 Multiple Vitamins-Minerals (WOMENS 50+ MULTI VITAMIN/MIN PO) Take 1 tablet by mouth daily every morning. (Patient not taking: Reported on 07/24/2022) No current facility-administered medications for this visit. Allergies: *seasonal and Sulfa antibiotics Immunizations: Immunization History Administered Date(s) Administered COVID-19 Vaccine, mRNA, Pfizer, Bivalent Booster 0.3 mL 07/01/2022 Review of Systems: Constitutional: Negative for fever, weight loss and weight gain. HENT: Negative for ear pain, sore throat and hoarseness. Negative for difficulty swallowing. Cardiovascular: Negative for chest pain and dyspnea on exertion (Can climb up 2 floors). Respiratory: Is not experiencing shortness of breath. Gastrointestinal: Negative for nausea and vomiting. Neurological: Negative for headaches. Psychiatric: The patient is not nervous/anxious. Musculoskeletal: Denies muscle pain/weakness Heme/Lymph: Negative for lymph nodes, easy bruising Physical Exam Vital Signs: BP 115/75 (BP Location: Right arm, BP Position: Sitting) Pulse 84 Temp 96.5 F (35.8 C) (Temporal) Resp 16 Wt 81.6 kg (179 lb 12.8 oz) SpO2 93% BMI 32.89 kg/m Smoking Status Never General: Well-developed, well-nourished. No distress. Communication and Voice: Clear pitch, dysarthric as expected Respiratory Respiratory effort: Equal inspiration and expiration without stridor Cardiovascular Heart: regular rate and rhythm Peripheral Vascular: Warm extremities with equal pulses Neuro: Patient oriented to person, place, and time; Appropriate mood and affect; Gait is intact with no imbalance; Cranial nerves II-XII are intact Head and Face Inspection: Normocephalic and atraumatic without mass or lesion Palpation: Facial skeleton intact without bony stepoffs Facial Strength: Facial motility symmetric and full bilaterally Eyes: PERRLA. No nystagmus with normal extraocular motion bilaterally ENT Pinna: External ear intact and fully developed External canal: Canal is patent with intact skin Tympanic Membrane: Clear and mobile External nose: No scar or anatomic deformity Internal Nose: Septum intact and midline. No edema, polyp, or rhinorrhea. TMJ: No pain to palpation with full mobility Salivary Glands: No mass or tenderness Lips: No lesion. Oral cavity: STSG site open and raw. Silver nitrate cautery. STSG site on leg healing well. Oropharynx: No mass or lesion. Tonsillar fossa symmetric. Base of tongue soft without mass or induration. Neck Trachea: Midline trachea. Neck: right neck incision CDI Thyroid: No mass or nodularity. Lymphatics: No lymphadenopathy. Data Reviewed: No imaging has been performed at this time Pathologic Diagnosis Outside Slides [id number] (06/03/22) B. Right lateral tongue, incisional biopsy: Invasive squamous cell carcinoma. Pathologic Diagnosis A. Anterior re-resection #2: Negative For Carcinoma. B. Superior re-resection: Negative For Carcinoma. C. Posterior re-resection: Negative For Carcinoma. D. Inferior re-resection: Negative For Carcinoma. E. Deep re-resection: Negative For Carcinoma. F. Right partial glossectomy: Squamous Cell Carcinoma, Minimally Invasive - see synoptic report. G. Anterior re-resection #1: Negative For Carcinoma. H. Right level I neck dissection: Submandibular Gland, No Pathologic Change. Five Benign Lymph Nodes (0/5). I. Right level II neck dissection: Seventeen Benign Lymph Nodes (0/17). J. Right level III and IV neck dissection: Thirteen Benign Lymph Nodes (0/13). SYNOPTIC REPORT FOR CANCER OF THE LIP AND ORAL CAVITY: Procedure: right partial glossectomy and selective right neck dissection Tumor site: right lateral tongue Tumor focality: single Tumor size: 0.2 cm. Tumor gross configuration: endophytic WHO Histologic type: squamous cell carcinoma Tumor grade: well-differentiated Depth of Invasion [DOI]: < 0.1 cm. Lymphovascular invasion (LVI): absent Perineural invasion (PNI): absent Tumor extent: Intramucosal lesion: absent Deep Tissue (bone, deep muscle of tongue, maxillary sinus, skin): negative Margins: Main specimen margins: negative Additional separately submitted margins (frozen tissue specimens): negative Additional resection margins (non-frozen tissue): negative Distance of tumor to nearest margin: carcinoma is 0.5 cm from inked inferior margin in main specimen Lymph nodes: Number examined: 35 Number involved: none (0) Extranodal extension [ALMA]: N/A Size of largest metastatic ce deposit: N/A Additional pathologic findings: see line diagnoses Neoadjuvant therapy: none Ancillary Studies: none pTNM classification: pT1 N0 Impression/Plan: 67 yo F, never smoker with 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 A raw surface was noted on exam and silver nitrate cautery was performed in clinic. Patient was counseled to provide pressure to the site with afrin soaked gauze for minor bleeding and to present to ED for any major bleeding. RTC in 3 weeks. HPI Astrid Dumont is a 67 y.o. with history of right glossectomy with STSG reconstruction presenting with oral cavity bleeding from her right posterolateral tongue. Past Medical History She has a past medical history of Arthritis, Diabetes mellitus, and Squamous cell carcinoma, keratinizing. Past Surgical History She has a past surgical history that includes lithotripsy; knee replacement (Right); knee replacement (Left); rotator cuff repair; glossectomy less than 1/2 tongue (Right, 07/12/2022); graft skin split thickness ear eyelid face mouth orbit (stsg) (N/A, 07/12/2022); and lymphadenectomy cervical (modified radical neck dissection) (Right, 07/12/2022). Medications She has a current medication list which includes the following prescription(s): acetaminophen, allopurinol, atenolol, atorvastatin, calcium carbonate, cetirizine, chlorhexidine, chlorhexidine, cholecalciferol, eluxadoline, empagliflozin, escitalopram, hydrochlorothiazide, hydroxychloroquine, levothyroxine sodium, magnesium oxide, melatonin, metformin, potassium citrate, aspirin, first-mouthwash blm, multiple vitamins-minerals, [DISCONTINUED] clotrimazole, and [DISCONTINUED] oxycodone. Allergies She is allergic to *seasonal and sulfa antibiotics. Social History She reports that she has never smoked. She has never used smokeless tobacco. She reports that she does not drink alcohol and does not use drugs. Review of Systems 12 point conducted and as per HPI Physical Exam BP 115/75 (BP Location: Right arm, BP Position: Sitting) Pulse 84 Temp 96.5 F (35.8 C) (Temporal) Resp 16 Wt 81.6 kg (179 lb 12.8 oz) SpO2 93% BMI 32.89 kg/m Smoking Status Never Constitutional: Alert, comfortable. HEENT: Conjunctivae normal. Moist mucous membranes. Pulmonary/Chest: Respirations are even and non-labored bilaterally. Abdominal: Soft. No distension, tenderness, masses or guarding. Neurological: Alert and oriented. Moving all extremities. Extremities: JEAN x 4, Warm. Skin: [place], warm and dry. Psychiatric: Normal mood and affect Labs Lab Results Component Value Date SODIUM 138 07/17/2022 POTASSIUM 4.0 07/17/2022 CHLORIDE 100 07/17/2022 CO2 29 07/17/2022 BUN 15 07/17/2022 CREATSERUM 0.74 07/17/2022 GLUCOSE 167 (H) 07/21/2022 Lab Results Component Value Date WBC 7.57 07/21/2022 HGB 12.5 07/22/2022 HCT 38.3 07/22/2022 PLATELET 346 07/21/2022 MCV 89.6 07/21/2022 No results found for: PSA Lab Results Component Value Date CREATSERUM 0.74 07/17/2022 CREATSERUM 0.72 07/16/2022 CREATSERUM 0.73 07/15/2022 Assessment Astrid Dumont is a 67 y.o. female who presents with bleeding from her right posterolateral tongue. Plan 1. To OR for control of right posterior lateral tongue bleed Shar Levine MD 07/24/2022 4:33 PM Attending Physician Note I independently interviewed, examined and formulated the medical decision making. Details of my interview, examination findings, and medical decision-making confirmed the findings below. I have personally amended the below documentation where appropriate. Pt having intermittent bleeding - was admitted and discharged after 24 hrs observation. Fine for most of clinic visit and then developed acute onset bleeding controlled with pressure, appears to be a very small superficial vessel, we got the clinic monopolar cautery set up and area stopped but needs definitive identification and control, safest to do in OR with airway control. documented in this encounter [facility] 07-24-2022 Instructions Trish Castellon RN - 07/24/2022 3:45 PM EDT Please call Dr. Bingham's nurse at [phone] if you notice any new lumps in head or neck, new onset of difficulty with swallowing, persistent ear pain, hoarseness or new pain in head and neck that does not go away for 2 weeks. For covid vaccine call [phone] ([phone]). documented in this encounter [facility] 07-22-2022 Note Formatting of this n ote is different from the original. This patient was appropriately risk stratified for observation level of care and placed on an observation protocol in our Clinical Decision Unit. The patient's intensity of service and severity of illness was appropriately aligned with observation level of care. Medical Decision Makin y.o. female with a past medical history of type 2 DM, hypothyroidism, arthritis, and squamous cell CA of right side of tongue/partial glossectomy 07/12/2022. The patient experienced some bleeding from her glossectomy site. She was placed in the Observation Unit under the General Protocol to monitor bleeding and follow serial Hg. The patient's labs were reviewed: Results for orders placed or performed during the hospital encounter of 07/21/22 CBC AND ELECTRONIC DIFF Result Value Ref Range WBC Count 7.57 3.99 - 11.19 K/uL RBC Count 4.61 3.91 - 5.04 M/uL Hemoglobin 13.5 11.4 - 15.2 g/dL Hematocrit 41.3 34.9 - 44.3 % Mean Cell Volume 89.6 79.6 - 97.7 fL Mean Cell Hgb 29.3 25.9 - 33.9 pg Mean Cell Hgb Conc 32.7 31.4 - 35.9 g/dL RBC Distribution 12.8 10.8 - 14.9 % Platelet Count 346 150 - 393 K/uL Mean Platelet Volume 10.2 8.5 - 12.2 fL DIFF STATUS Electronic Differential Segs + Bands Auto 63.9 % Immature Grans % 0.3 % Lymphocyte % Auto 18.4 % Monocyte % Auto 12.7 % Eosinophil % Auto 4.0 % Basophil % Auto 0.7 % Nucleated RBC 0.0 <=0.2 /100 WBC Segs + Bands,Absolute Auto 4.85 1.64 - 7.28 K/uL Immature Grans Absolute <0.04 <=0.08 K/uL Abs Lymph Auto 1.39 1.16 - 3.51 K/uL Abs [place] Auto 0.96 (H) 0.22 - 0.87 K/uL Abs Eos Auto 0.30 0.00 - 0.42 K/uL Abs Baso Auto 0.05 0.00 - 0.15 K/uL HEMOGLOBIN & HEMATOCRIT Result Value Ref Range Hemoglobin 12.9 11.4 - 15.2 g/dL Hematocrit 39.4 34.9 - 44.3 % HEMOGLOBIN & HEMATOCRIT Result Value Ref Range Hemoglobin 12.5 11.4 - 15.2 g/dL Hematocrit 38.3 34.9 - 44.3 % GLUCOSE POC Result Value Ref Range Glucose (POC Device) 124 (H) 70 - 99 mg/dL POC Sample Type CAPBL GLUCOSE POC Result Value Ref Range Glucose (POC Device) 167 (H) 70 - 99 mg/dL POC Sample Type CAPBL She did report some oozing overnight but had stable Hg values. She was seen by ENT who felt that should her tongue continue without further bleeding, she was appropriate for discharge. Physical Exam: Temp: [97.8 F (36.6 C)-98.2 F (36.8 C)] 98.1 F (36.7 C) Pulse (Heart Rate): [67-74] 70 Resp Rate: [16-18] 17 BP: (111-151)/(56-69) 111/59 O2 Sat (%): [92 %-99 %] 97 % Cor - RR, no tachycardia Lungs - clear Tongue - no active bleeding Disposition: Discharge The patient has met appropriate clinical criteria to be discharged from this CDU observation protocol. Reasons to return to the ED were discussed with the patient. The patient will be instructed to follow up with their primary care physician and Otolaryngology on 07/24 as directed. Clinical Impression: 1) Hemorrhage from the tongue 2) s/p glossectomy I saw and evaluated the patient with ARMANDO. I provided a substantive portion of the care for this patient. I personally performed all aspects of the medical decision making for this encounter. I have reviewed and verified this with the ARMANDO so that it accurately reflects our care. [facility]22 Miscellaneous Notes This patient was appropriately risk stratified for observation level of care and placed on an observation protocol in our Clinical Decision Unit. The patient's intensity of service and severity of illness was appropriately aligned with observation level of care. Medical Decision Makin y.o. female with a past medical history of type 2 DM, hypothyroidism, arthritis, and squamous cell CA of right side of tongue/partial glossectomy 07/12/2022. The patient experienced some bleeding from her glossectomy site. She was placed in the Observation Unit under the General Protocol to monitor bleeding and follow serial Hg. The patient's labs were reviewed: Results for orders placed or performed during the hospital encounter of 07/21/22 CBC AND ELECTRONIC DIFF Result Value Ref Range WBC Count 7.57 3.99 - 11.19 K/uL RBC Count 4.61 3.91 - 5.04 M/uL Hemoglobin 13.5 11.4 - 15.2 g/dL Hematocrit 41.3 34.9 - 44.3 % Mean Cell Volume 89.6 79.6 - 97.7 fL Mean Cell Hgb 29.3 25.9 - 33.9 pg Mean Cell Hgb Conc 32.7 31.4 - 35.9 g/dL RBC Distribution 12.8 10.8 - 14.9 % Platelet Count 346 150 - 393 K/uL Mean Platelet Volume 10.2 8.5 - 12.2 fL DIFF STATUS Electronic Differential Segs + Bands Auto 63.9 % Immature Grans % 0.3 % Lymphocyte % Auto 18.4 % Monocyte % Auto 12.7 % Eosinophil % Auto 4.0 % Basophil % Auto 0.7 % Nucleated RBC 0.0 <=0.2 /100 WBC Segs + Bands,Absolute Auto 4.85 1.64 - 7.28 K/uL Immature Grans Absolute <0.04 <=0.08 K/uL Abs Lymph Auto 1.39 1.16 - 3.51 K/uL Abs [place] Auto 0.96 (H) 0.22 - 0.87 K/uL Abs Eos Auto 0.30 0.00 - 0.42 K/uL Abs Baso Auto 0.05 0.00 - 0.15 K/uL HEMOGLOBIN & HEMATOCRIT Result Value Ref Range Hemoglobin 12.9 11.4 - 15.2 g/dL Hematocrit 39.4 34.9 - 44.3 % HEMOGLOBIN & HEMATOCRIT Result Value Ref Range Hemoglobin 12.5 11.4 - 15.2 g/dL Hematocrit 38.3 34.9 - 44.3 % GLUCOSE POC Result Value Ref Range Glucose (POC Device) 124 (H) 70 - 99 mg/dL POC Sample Type CAPBL GLUCOSE POC Result Value Ref Range Glucose (POC Device) 167 (H) 70 - 99 mg/dL POC Sample Type CAPBL She did report some oozing overnight but had stable Hg values. She was seen by ENT who felt that should her tongue continue without further bleeding, she was appropriate for discharge. Physical Exam: Temp: [97.8 F (36.6 C)-98.2 F (36.8 C)] 98.1 F (36.7 C) Pulse (Heart Rate): [67-74] 70 Resp Rate: [16-18] 17 BP: (111-151)/(56-69) 111/59 O2 Sat (%): [92 %-99 %] 97 % Cor - RR, no tachycardia Lungs - clear Tongue - no active bleeding Disposition: Discharge The patient has met appropriate clinical criteria to be discharged from this CDU observation protocol. Reasons to return to the ED were discussed with the patient. The patient will be instructed to follow up with their primary care physician and Otolaryngology on 07/24 as directed. Clinical Impression: 1) Hemorrhage from the tongue 2) s/p glossectomy I saw and evaluated the patient with ARMANDO. I provided a substantive portion of the care for this patient. I personally performed all aspects of the medical decision making for this encounter. I have reviewed and verified this with the ARMANDO so that it accurately reflects our care. DEPARTMENT OF EMERGENCY MEDICINE CHIEF COMPLAINT Chief Complaint Patient presents with Post-Op Problem HISTORY OF PRESENT ILLNESS Astrid Dumont is a 67 y.o. 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 Patient had right partial glossectomy on 07/12/2022 @ [facility] without complications. She presents with oral bleeding that started yesterday afternoon. She has had several bouts of bleeding which subsided with pressure, but recurred. She also reported noticing whitish slough off of skin from oral surgery sites. Patient is not on antiplatelets or anti thrombolytics. Initial dysphagia and odynophagia after surgery, but no difficulty at this time. No respiratory distress. No neck swelling or feeling of throat closure. No fever or chills. No shortness of breath. No chest pain or chest discomfort. No increase weakness or dizziness. REVIEW OF SYSTEMS Review of Systems Constitutional: Negative for chills and fever. HENT: Negative for congestion. +sore mouth Respiratory: Negative for shortness of breath. Cardiovascular: Negative for chest pain. Gastrointestinal: Negative for abdominal pain, nausea and vomiting. Genitourinary: Negative. Musculoskeletal: Negative. Skin: Oral surgery incision. Right side of neck incision. Neurological: Negative for headaches. Psychiatric/Behavioral: Negative. PAST MEDICAL HISTORY Past Medical History: Diagnosis Date Arthritis Diabetes mellitus Squamous cell carcinoma, keratinizing SURGICAL HISTORY Past Surgical History: Procedure Laterality Date GLOSSECTOMY LESS THAN 1/2 TONGUE Right 07/12/2022 Laterality: Right; Surgeon: Ricky Bingham MD; Location: [facility] OR GRAFT SKIN SPLIT THICKNESS EAR EYELID FACE MOUTH ORBIT (STSG) N/A 07/12/2022 Laterality: N/A; Surgeon: Ricky Bingham MD; Location: [facility] MAIN OR LYMPHADENECTOMY CERVICAL (MODIFIED RADICAL NECK DISSECTION) Right 07/12/2022 Laterality: Right; Surgeon: Ricky Bingham MD; Location: [facility] OR KNEE REPLACEMENT Right KNEE REPLACEMENT Left LITHOTRIPSY ROTATOR CUFF REPAIR Current Medications: allopurinol 300 MG tablet, Take 100 mg by mouth daily every morning., aspirin 81 MG Chew Tab chewable tablet, Chew 81 mg daily every morning. atenolol 50 MG tablet, Take 25 mg by mouth daily every morning., atorvastatin 10 MG tablet, Take 10 mg by mouth at bedtime. Calcium Carbonate (CALCIUM 500 PO), Take 1,000 mg by mouth daily every morning cetirizine 10 MG tablet, Take 10 mg by mouth every evening at 6 PM., chlorhexidine 0.12 % Solution oral solution, Take 15 mL by mouth every 12 hours for 14 days. cholecalciferol 50 MCG (2000 UT) capsule, Take 2,000 Units by mouth daily every morning. Eluxadoline 100 MG tablet, Take 100 mg by mouth as needed., Empagliflozin 10 MG tablet, Take 25 mg by mouth daily every morning escitalopram 5 MG tablet, Take 10 mg by mouth daily every morning., hydroCHLOROthiazide 25 MG tablet, Take 25 mg by mouth daily every morning hydroxychloroquine 200 MG tablet, Take 200 mg by mouth 2 times daily. Levothyroxine Sodium (LEVOTHYROXINE PO), Take 75 mcg by mouth at bedtime. Magnesium Oxide (MAG-OX 400 PO), Take 400 mg by mouth 2 times daily. Melatonin 5 MG capsule, Take 5 mg by mouth as needed., Disp: , Rfl: metFORMIN 500 MG tablet, Take 500 mg by mouth 2 times daily with meals Multiple Vitamins-Minerals (WOMENS 50+ MULTI VITAMIN/MIN PO), Take 1 tablet by mouth daily every morning. Potassium Citrate 15 MEQ (1620 MG) Tab CR ALLERGIES Allergies Allergen Reactions *Seasonal Sulfa Antibiotics FAMILY HISTORY Family History Problem Relation Age of Onset Stroke Mother Coronary Artery Disease Father Myocardial Infarction Father Leukemia Brother Alcoholism Brother SOCIAL HISTORY Social History Socioeconomic History Marital status: Spouse name: Not on file Number of children: Not on file Years of education: Not on file Highest education level: Not on file Occupational History Not on file Tobacco Use Smoking status: Never Smokeless tobacco: Never Vaping Use Vaping Use: Not on file Substance and Sexual Activity Alcohol use: Never Drug use: Never Sexual activity: Not on file Other Topics Concern Not on file Social History Narrative Not on file Social Determinants of Health Financial Resource Strain: Not on file Food Insecurity: Not on file Transportation Needs: Not on file Physical Activity: Not on file Stress: Not on file Social Connections: Not on file Intimate Partner Violence: Not on file Housing Stability: Not on file PHYSICAL EXAM BP 151/69 Pulse 68 Temp 98.1 F (36.7 C) (Oral) Resp 18 Ht 1.575 m (5' 2 ) SpO2 98% BMI 35.48 kg/m Smoking Status Never Physical Exam Constitutional: General: She is not in acute distress. Appearance: She is not ill-appearing, toxic-appearing or diaphoretic. HENT: Head: Normocephalic. Nose: Nose normal. Mouth/Throat: Mouth: Mucous membranes are moist. Pharynx: Oropharynx is clear. Comments: Areas of silver nitrate application on right lower jaw line. No significant swelling. Area with moisture. No active bleeding. Neck: Comments: ROM of neck without deficit. Right surgery incisions intact, minimal erythema. Sloughing of skin noted. No active drainage. Right upper thigh skin graft site, healing well. Wound bed pink. Cardiovascular: Rate and Rhythm: Normal rate and regular rhythm. Heart sounds: Normal heart sounds. Pulmonary: Effort: Pulmonary effort is normal. No respiratory distress. Breath sounds: No wheezing, rhonchi or rales. Abdominal: Palpations: Abdomen is soft. Tenderness: There is no abdominal tenderness. There is no guarding or rebound. Musculoskeletal: General: Normal range of motion. Skin: Comments: See prior documentation. Neurological: General: No focal deficit present. Mental Status: She is alert. Psychiatric: Behavior: Behavior normal. EDOU COURSE & MEDICAL DECISION MAKING Risk stratification appropriate for observation level of care. Patient was placed in EDOU on the epistaxis/post operative oral bleeding protocol. I reviewed the patients' medical records and nursing notes and noted their allergies, past medical history, and previous visits. The reviewed showed cbc- wnl. While in the EDOU we will continue to check, monitor and reassess patient and alter our plan as clinically appropriate. Plan for serial monitoring, H & H @1900,0600, and ENT re evaluation in AM. I have discussed this plan of care with Dr. Devine, the EDOU attending physician, who is in agreement with this plan. This is a shared visit on 07/21/2022. Electronically signed by: JAVIER Cole, 07/21/2022 12:53 PM CDU Attending Note: 67 yo female with recent glossectomy who presents with bleeding from the base of the tongue for the past two days. She was seen in the ED by ENT who used silver nitrate to cauterize the bleeding. She is being admitted to [facility] under the General Protocol. BP 151/69 Pulse 68 Temp 98.1 F (36.7 C) (Oral) Resp 18 Ht 1.575 m (5' 2 ) SpO2 98% BMI 35.48 kg/m Smoking Status Never No active bleeding from right side of tongue Lungs clear Cor - no tachycardia Labs are reviewed: Results for orders placed or performed during the hospital encounter of 07/21/22 CBC AND ELECTRONIC DIFF Result Value Ref Range WBC Count 7.57 3.99 - 11.19 K/uL RBC Count 4.61 3.91 - 5.04 M/uL Hemoglobin 13.5 11.4 - 15.2 g/dL Hematocrit 41.3 34.9 - 44.3 % Mean Cell Volume 89.6 79.6 - 97.7 fL Mean Cell Hgb 29.3 25.9 - 33.9 pg Mean Cell Hgb Conc 32.7 31.4 - 35.9 g/dL RBC Distribution 12.8 10.8 - 14.9 % Platelet Count 346 150 - 393 K/uL Mean Platelet Volume 10.2 8.5 - 12.2 fL DIFF STATUS Electronic Differential Segs + Bands Auto 63.9 % Immature Grans % 0.3 % Lymphocyte % Auto 18.4 % Monocyte % Auto 12.7 % Eosinophil % Auto 4.0 % Basophil % Auto 0.7 % Nucleated RBC 0.0 <=0.2 /100 WBC Segs + Bands,Absolute Auto 4.85 1.64 - 7.28 K/uL Immature [place]ans Absolute <0.04 <=0.08 K/uL Abs Lymph Auto 1.39 1.16 - 3.51 K/uL Abs [place] Auto 0.96 (H) 0.22 - 0.87 K/uL Abs Eos Auto 0.30 0.00 - 0.42 K/uL Abs Baso Auto 0.05 0.00 - 0.15 K/uL Plan: serial Hg, monitor for bleeding documented in this encounter [facility] 07-22-2022 History of Presen t illness Narrative Head & Neck Surgery Daily Progress Note Last 24 Hours Reports small amount of bleeding at around 1:30 am that quickly resolved with pressure Has had no further bleeding since Overall feeling better Physical Exam BP 118/59 Pulse 71 Temp 98 F (36.7 C) (Oral) Resp 18 Ht 1.575 m (5' 2 ) SpO2 92% BMI 35.48 kg/m Smoking Status Never Alert, oriented, NAD Non-labored breathing, in no respiratory distress or no stridor Neck flat, incisions C/D/I No evidence of fluid collection, dehiscence, or necrosis Tongue midline, shoulder shrug intact Surgical site healing well. No active bleeding noted Sloughing of skin graft anterior, inferior aspect of skin graft. Overall largely in place SCDs in place Laboratory Studies & Objective Data Temp: [97.8 F (36.6 C)-98.2 F (36.8 C)] 98 F (36.7 C) Pulse (Heart Rate): [67-74] 71 Resp Rate: [16-18] 18 BP: (112-151)/(56-69) 118/59 O2 Sat (%): [92 %-99 %] 92 % Oxygen Therapy O2 Sat (%): 92 % O2 Device: room air Fluid Management (24hrs): Intake/Output last 3 shifts: No intake/output data recorded. WBC/Hgb/Hct/Plts: 7.57/12.5/38.3/346 (07/213-07/22 423) Bun/Creat/Cl/CO2/Glucose: --/--/--/--/167 (07/21 1959) Assessment & Plan 67 y.o. female POD9 s/p R-partial glossectomy, R-SND (I-IV), and STSG recon for R-tongue SCCa presenting with oral bleeding Today: - Watch until 10 am, if no further bleeding patient okay to discharge home. Follow up scheduled with Dr. Bingham on 07/24/2022 - [facility] QID (after meals and before bed) for 4 days. - MMW swish and spit for pain. - Tylenol as needed for pain. Renetta Pérez MD Otolaryngology - Head and Neck Surgery Pager #[phone] documented in this encounter [facility] 07-21-2022 Hospital Discharg e instructions Trish Weiner, [employer] PAT[employer] EDGER-LPC - 07/21/2022 4:14 PM EDT - Peridex QID (after meals and before bed) for 4 days. - Magic Mouth Wash swish and spit for pain. - Outpatient follow-up with Dr. Bingham on 07/24/22. Results for orders placed or performed during the hospital encounter of 07/21/22 CBC AND ELECTRONIC DIFF Result Value Ref Range WBC Count 7.57 3.99 - 11.19 K/uL RBC Count 4.61 3.91 - 5.04 M/uL Hemoglobin 13.5 11.4 - 15.2 g/dL Hematocrit 41.3 34.9 - 44.3 % Mean Cell Volume 89.6 79.6 - 97.7 fL Mean Cell Hgb 29.3 25.9 - 33.9 pg Mean Cell Hgb Conc 32.7 31.4 - 35.9 g/dL RBC Distribution 12.8 10.8 - 14.9 % Platelet Count 346 150 - 393 K/uL Mean Platelet Volume 10.2 8.5 - 12.2 fL DIFF STATUS Electronic Differential Segs + Bands Auto 63.9 % Immature Grans % 0.3 % Lymphocyte % Auto 18.4 % Monocyte % Auto 12.7 % Eosinophil % Auto 4.0 % Basophil % Auto 0.7 % Nucleated RBC 0.0 <=0.2 /100 WBC Segs + Bands,Absolute Auto 4.85 1.64 - 7.28 K/uL Immature Grans Absolute <0.04 <=0.08 K/uL Abs Lymph Auto 1.39 1.16 - 3.51 K/uL Abs [place] Auto 0.96 (H) 0.22 - 0.87 K/uL Abs Eos Auto 0.30 0.00 - 0.42 K/uL Abs Baso Auto 0.05 0.00 - 0.15 K/uL HEMOGLOBIN & HEMATOCRIT Result Value Ref Range Hemoglobin 12.9 11.4 - 15.2 g/dL Hematocrit 39.4 34.9 - 44.3 % HEMOGLOBIN & HEMATOCRIT Result Value Ref Range Hemoglobin 12.5 11.4 - 15.2 g/dL Hematocrit 38.3 34.9 - 44.3 % GLUCOSE POC Result Value Ref Range Glucose (POC Device) 124 (H) 70 - 99 mg/dL POC Sample Type CAPBL GLUCOSE POC Result Value Ref Range Glucose (POC Device) 167 (H) 70 - 99 mg/dL POC Sample Type CAPBL The following attachments cannot be sent through Care Everywhere.Hemoptysis (Icelandic)documented in this encounter [facility] 07-21-2022 Note Formatting of this n ote is different from the original. DEPARTMENT OF EMERGENCY MEDICINE CHIEF COMPLAINT Chief Complaint Patient presents with Post-Op Problem HISTORY OF PRESENT ILLNESS Astrid Dumont is a 67 y.o. 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 Patient had right partial glossectomy on 07/12/2022 @ [facility] without complications. She presents with oral bleeding that started yesterday afternoon. She has had several bouts of bleeding which subsided with pressure, but recurred. She also reported noticing whitish slough off of skin from oral surgery sites. Patient is not on antiplatelets or anti thrombolytics. Initial dysphagia and odynophagia after surgery, but no difficulty at this time. No respiratory distress. No neck swelling or feeling of throat closure. No fever or chills. No shortness of breath. No chest pain or chest discomfort. No increase weakness or dizziness. REVIEW OF SYSTEMS Review of Systems Constitutional: Negative for chills and fever. HENT: Negative for congestion. +sore mouth Respiratory: Negative for shortness of breath. Cardiovascular: Negative for chest pain. Gastrointestinal: Negative for abdominal pain, nausea and vomiting. Genitourinary: Negative. Musculoskeletal: Negative. Skin: Oral surgery incision. Right side of neck incision. Neurological: Negative for headaches. Psychiatric/Behavioral: Negative. PAST MEDICAL HISTORY Past Medical History: Diagnosis Date Arthritis Diabetes mellitus Squamous cell carcinoma, keratinizing SURGICAL HISTORY Past Surgical History: Procedure Laterality Date GLOSSECTOMY LESS THAN 1/2 TONGUE Right 07/12/2022 Laterality: Right; Surgeon: Ricky Bingham MD; [facility] MA[facility] OR GRAFT SKIN SPLIT THICKNESS EAR EYELID FACE MOUTH ORBIT ([facility]) N/A 07/12/2022 Laterality: N/A; Surgeon: Ricky Bingham MD; Location: [facility] MAIN OR LYMPHADENECTOMY CERVICAL (MODIFIED RADICAL NECK DISSECTION) Right 07/12/2022 Laterality: Right; Surgeon: Ricky Bingham MD; Location: [facility] MAIN OR KNEE REPLACEMENT Right KNEE REPLACEMENT Left LITHOTRIPSY ROTATOR CUFF REPAIR Current Medications: allopurinol 300 MG tablet, Take 100 mg by mouth daily every morning., aspirin 81 MG Chew Tab chewable tablet, Chew 81 mg daily every morning. atenolol 50 MG tablet, Take 25 mg by mouth daily every morning., atorvastatin 10 MG tablet, Take 10 mg by mouth at bedtime. Calcium Carbonate (CALCIUM 500 PO), Take 1,000 mg by mouth daily every morning cetirizine 10 MG tablet, Take 10 mg by mouth every evening at 6 PM., chlorhexidine 0.12 % Solution oral solution, Take 15 mL by mouth every 12 hours for 14 days. cholecalciferol 50 MCG (2000 UT) capsule, Take 2,000 Units by mouth daily every morning. Eluxadoline 100 MG tablet, Take 100 mg by mouth as needed., Empagliflozin 10 MG tablet, Take 25 mg by mouth daily every morning escitalopram 5 MG tablet, Take 10 mg by mouth daily every morning., hydroCHLOROthiazide 25 MG tablet, Take 25 mg by mouth daily every morning hydroxychloroquine 200 MG tablet, Take 200 mg by mouth 2 times daily. Levothyroxine Sodium (LEVOTHYROXINE PO), Take 75 mcg by mouth at bedtime. Magnesium Oxide (MAG-OX 400 PO), Take 400 mg by mouth 2 times daily. Melatonin 5 MG capsule, Take 5 mg by mouth as needed., Disp: , Rfl: metFORMIN 500 MG tablet, Take 500 mg by mouth 2 times daily with meals Multiple Vitamins-Minerals (WOMENS 50+ MULTI VITAMIN/MIN PO), Take 1 tablet by mouth daily every morning. Potassium Citrate 15 MEQ (1620 MG) Tab CR ALLERGIES Allergies Allergen Reactions *Seasonal Sulfa Antibiotics FAMILY HISTORY Family History Problem Relation Age of Onset Stroke Mother Coronary Artery Disease Father Myocardial Infarction Father Leukemia Brother Alcoholism Brother SOCIAL HISTORY Social History Socioeconomic History Marital status: Spouse name: Not on file Number of children: Not on file Years of education: Not on file Highest education level: Not on file Occupational History Not on file Tobacco Use Smoking status: Never Smokeless tobacco: Never Vaping Use Vaping Use: Not on file Substance and Sexual Activity Alcohol use: Never Drug use: Never Sexual activity: Not on file Other Topics Concern Not on file Social History Narrative Not on file Social Determinants of Health Financial Resource Strain: Not on file Food Insecurity: Not on file Transportation Needs: Not on file Physical Activity: Not on file Stress: Not on file Social Connections: Not on file Intimate Partner Violence: Not on file Housing Stability: Not on file PHYSICAL EXAM BP 151/69 Pulse 68 Temp 98.1 F (36.7 C) (Oral) Resp 18 Ht 1.575 m (5' 2 ) SpO2 98% BMI 35.48 kg/m Smoking Status Never Physical Exam Constitutional: General: She is not in acute distress. Appearance: She is not ill-appearing, toxic-appearing or diaphoretic. HENT: Head: Normocephalic. Nose: Nose normal. Mouth/Throat: Mouth: Mucous membranes are moist. Pharynx: Oropharynx is clear. Comments: Areas of silver nitrate application on right lower jaw line. No significant swelling. Area with moisture. No active bleeding. Neck: Comments: ROM of neck without deficit. Right surgery incisions intact, minimal erythema. Sloughing of skin noted. No active drainage. Right upper thigh skin graft site, healing well. Wound bed pink. Cardiovascular: Rate and Rhythm: Normal rate and regular rhythm. Heart sounds: Normal heart sounds. Pulmonary: Effort: Pulmonary effort is normal. No respiratory distress. Breath sounds: No wheezing, rhonchi or rales. Abdominal: Palpations: Abdomen is soft. Tenderness: There is no abdominal tenderness. There is no guarding or rebound. Musculoskeletal: General: Normal range of motion. Skin: Comments: See prior documentation. Neurological: General: No focal deficit present. Mental Status: She is alert. Psychiatric: Behavior: Behavior normal. EDOU COURSE & MEDICAL DECISION MAKING Risk stratification appropriate for observation level of care. Patient was placed in EDOU on the epistaxis/post operative oral bleeding protocol. I reviewed the patients' medical records and nursing notes and noted their allergies, past medical history, and previous visits. The reviewed showed cbc- wnl. While in the EDOU we will continue to check, monitor and reassess patient and alter our plan as clinically appropriate. Plan for serial monitoring, H & H @1900,0600, and ENT re evaluation in AM. I have discussed this plan of care with Dr. Devine, the EDOU attending physician, who is in agreement with this plan. This is a shared visit on 07/21/2022. Electronically signed by: JAVIER Cole, 07/21/2022 12:53 PM [facility] Work Phone: 07-21-2022 Note Formatting of this n ote is different from the original. CDU Attending Note: 67 yo female with recent glossectomy who presents with bleeding from the base of the tongue for the past two days. She was seen in the ED by ENT who used silver nitrate to cauterize the bleeding. She is being admitted to [facility] under the General Protocol. BP 151/69 Pulse 68 Temp 98.1 F (36.7 C) (Oral) Resp 18 Ht 1.575 m (5' 2 ) SpO2 98% BMI 35.48 kg/m Smoking Status Never No active bleeding from right side of tongue Lungs clear Cor - no tachycardia Labs are reviewed: Results for orders placed or performed during the hospital encounter of 07/21/22 CBC AND ELECTRONIC DIFF Result Value Ref Range WBC Count 7.57 3.99 - 11.19 K/uL RBC Count 4.61 3.91 - 5.04 M/uL Hemoglobin 13.5 11.4 - 15.2 g/dL Hematocrit 41.3 34.9 - 44.3 % Mean Cell Volume 89.6 79.6 - 97.7 fL Mean Cell Hgb 29.3 25.9 - 33.9 pg Mean Cell Hgb Conc 32.7 31.4 - 35.9 g/dL RBC Distribution 12.8 10.8 - 14.9 % Platelet Count 346 150 - 393 K/uL Mean Platelet Volume 10.2 8.5 - 12.2 fL DIFF STATUS Electronic Differential Segs + Bands Auto 63.9 % Immature Grans % 0.3 % Lymphocyte % Auto 18.4 % Monocyte % Auto 12.7 % Eosinophil % Auto 4.0 % Basophil % Auto 0.7 % Nucleated RBC 0.0 <=0.2 /100 WBC Segs + Bands,Absolute Auto 4.85 1.64 - 7.28 K/uL Immature Grans Absolute <0.04 <=0.08 K/uL Abs Lymph Auto 1.39 1.16 - 3.51 K/uL Abs [place] Auto 0.96 (H) 0.22 - 0.87 K/uL Abs Eos Auto 0.30 0.00 - 0.42 K/uL Abs Baso Auto 0.05 0.00 - 0.15 K/uL Plan: serial Hg, monitor for bleeding [facility] 07-21-2022 Physician Emergency department Note This patient's history, physical exam were performed by the ARMANDO in a shared visit. Past Medical History: Diagnosis Date Arthritis Diabetes mellitus Squamous cell carcinoma, keratinizing Medication list reviewed. At least 10 systems were reviewed and were negative. On 07/21/2022 I saw and evaluated the patient with the ARMANDO. I provided a substantive portion of the care for this patient. I personally performed all aspects of the medical decision making for this encounter. I have reviewed and verified this with the ARMANDO so that it accurately reflects our care. Hx DM, SCCa s/p R partial glossectomy with graft on 07/12. C/o persistent bleeding since yesterday evening. Denies drainage, difficulty swallowing. Not AC. Referred to ED by ENT for eval. Currently hemostatic. Noemi Ovalle MD 07/21/22 1110 Noemi Ovalle MD 07/21/22 1111 [facility] Work Phone: 07-21-2022 Emergency department Note This patient's history, physical exam were performed by the ARMANDO in a shared visit. Past Medical History: Diagnosis Date Arthritis Diabetes mellitus Squamous cell carcinoma, keratinizing Medication list reviewed. At least 10 systems were reviewed and were negative. On 07/21/2022 I saw and evaluated the patient with the ARMANDO. I provided a substantive portion of the care for this patient. I personally performed all aspects of the medical decision making for this encounter. I have reviewed and verified this with the ARMANDO so that it accurately reflects our care. Hx DM, SCCa s/p R partial glossectomy with graft on 07/12. C/o persistent bleeding since yesterday evening. Denies drainage, difficulty swallowing. Not AC. Referred to ED by ENT for eval. Currently hemostatic. Noemi Ovalle MD 07/21/22 1110 Noemi Ovalle MD 07/21/22 1111 Images from the original note were not included. EMERGENCY DEPARTMENT ENCOUNTER CHIEF COMPLAINT Post-Op Problem HPI Astrid Dumont is a 67 y.o. female w history of dm, scc s/p partial glossectomy 07/12 who presents with oral bleeding and white stuff at base of tongue. She reports bleeding started yesterday , has been intermittent, yesterday was mouthfuls of blood stopped in the evening, reoocured this am, Not currently bleeding. Reports new 'white stuff at base of tongue over graft site. Denies fevers or chills, headache, difficulty swallowing, nausea vomiting, chest pain sob. Discussed with ent team over phone who recommended pt come to ED for evaluation. PAST MEDICAL HISTORY Past Medical History: Diagnosis Date Arthritis Diabetes mellitus Squamous cell carcinoma, keratinizing SURGICAL HISTORY Past Surgical History: Procedure Laterality Date GLOSSECTOMY LESS THAN 1/2 TONGUE Right 07/12/2022 Laterality: Right; Surgeon: Ricky Bingham MD; Location: [facility] MAIN OR GRAFT SKIN SPLIT THICKNESS EAR EYELID FACE MOUTH ORBIT ([facility]) N/A 07/12/2022 Laterality: N/A; Surgeon: Ricky Bingham MD; Location: [facility] MAIN OR LYMPHADENECTOMY CERVICAL (MODIFIED RADICAL NECK DISSECTION) Right 07/12/2022 Laterality: Right; Surgeon: Ricky Bingham MD; Location: [facility] MAIN OR KNEE REPLACEMENT Right KNEE REPLACEMENT Left LITHOTRIPSY ROTATOR CUFF REPAIR CURRENT MEDICATIONS Current Outpatient Medications Medication Sig acetaminophen 325 MG tablet Take 2 tablets by mouth every 6 hours as needed for Moderate Pain or Severe Pain. allopurinol 300 MG tablet Take 100 mg by mouth daily every morning. aspirin 81 MG Chew Tab chewable tablet Chew 81 mg daily every morning. atenolol 50 MG tablet Take 25 mg by mouth daily every morning. atorvastatin 10 MG tablet Take 10 mg by mouth at bedtime. Calcium Carbonate (CALCIUM 500 PO) Take 1,000 mg by mouth daily every morning. cetirizine 10 MG tablet Take 10 mg by mouth every evening at 6 PM. chlorhexidine 0.12 % Solution oral solution Take 15 mL by mouth every 12 hours for 14 days. cholecalciferol 50 MCG (2000 UT) capsule Take 2,000 Units by mouth daily every morning. Eluxadoline 100 MG tablet Take 100 mg by mouth as needed. Empagliflozin 10 MG tablet Take 25 mg by mouth daily every morning. escitalopram 5 MG tablet Take 10 mg by mouth daily every morning. hydroCHLOROthiazide 25 MG tablet Take 25 mg by mouth daily every morning. hydroxychloroquine 200 MG tablet Take 200 mg by mouth 2 times daily. Levothyroxine Sodium (LEVOTHYROXINE PO) Take 75 mcg by mouth at bedtime. Magnesium Oxide (MAG-OX 400 PO) Take 400 mg by mouth 2 times daily. Melatonin 5 MG capsule Take 5 mg by mouth as needed. metFORMIN 500 MG tablet Take 500 mg by mouth 2 times daily with meals. Multiple Vitamins-Minerals (WOMENS 50+ MULTI VITAMIN/MIN PO) Take 1 tablet by mouth daily every morning. Potassium Citrate 15 MEQ (1620 MG) Tab CR 1 ALLERGIES Allergies Allergen Reactions *Seasonal Sulfa Antibiotics FAMILY HISTORY History reviewed. No pertinent family history. SOCIAL HISTORY Social History Socioeconomic History Marital status: Tobacco Use Smoking status: Never Smokeless tobacco: Never Substance and Sexual Activity Alcohol use: Never Drug use: Never REVIEW OF SYSTEMS CONSTITUTIONAL: No Fever, no chills, no change in activity level, no unexpected weight loss/ gain, no fatigue. HENT: No vision changes, no nasal drainage, no throat pain or swelling, no lymphadenopathy. + oral bleeding CARDIO: No chest pain or pressure, no palpitations, no shortness of breath, no extremity edema. RESPIRATORY: No cough, no wheezing, no shortness of breath. GI: No abdominal pain, no nausea, no vomiting, no bloody or black tarry stools, no constipation, no diarrhea, no flank pain. : No dysuria, no change in urine output, no hematuria, no frequency. No vaginal pain, no vaginal bleedin MSK: No arthralgias, no myalgias, no back pain, no weakness. SKIN: No wounds, no rashes, no pallor or jaundice. NEUROLOGIC: No headaches, no vision changes, no dizziness, no weaknesses. HEMATOLOGIC: No bruising, no bleeding. ALLERGY/IMMUNE: No allergic or immune reactions. PHYSICAL EXAM VITAL SIGNS: BP 151/69 Pulse 68 Temp 98.1 F (36.7 C) (Oral) Resp 18 Ht 1.575 m (5' 2 ) SpO2 98% BMI 35.48 kg/m Smoking Status Never On room air General appearance: alert, cooperative, appears stated age Eye: PERRLA Oral: No active bleeding Neck: supple, symmetrical, trachea midline and no adenopathy Lungs: clear to auscultation bilaterally, respirations even and unlabored Heart: regular rate and rhythm, S1, S2 normal, no murmur, click, rub or gallop Abdomen: soft, non-tender. Bowel sounds normal. No masses, no organomegaly Extremities: extremities normal, atraumatic, no cyanosis or edema, dp pulses intact and symmetric Neurologic: AOx3. Gait normal. Reflexes and motor strength normal and symmetric. Cranial nerves 2-12 and sensation grossly intact Skin: Dry and intact, no rashes or open wounds Psych: appropriate affect, no si or hi I reviewed the patients medical records and noted their allergies, past medical history, and previous visits. I reviewed the nursing notes and vitals. ED COURSE & MEDICAL DECISION MAKING ASSESSMENT: Post operative oral bleeding and changes to graft site, Concern for dehiscence vs infection, eval for anemia PLAN: ent consult Cbc ED COURSE UPDATE: I have reviewed the labs and imaging for the visit and noted the abnormal results. Wbc 7.57, hgb 13.5, plt 346 discussed with ENT who evaluated patient at bedside -- silver nitrate to 2 pinpoint areas of bleeding. Monitor 24 hrs for recurrent bleeding Discussed with patient who verbalized understanding, in agreement with plan Notify ENt if bleeding reoccurs FINAL IMPRESSION: Oral bleeding Changes to graft site DISPOSITION: Observation This was a shared visit with Dr. Ovalle The plan of care and all medication prescriptions for this patient were discussed with the attending physician. This note dictated using [employer] medical voice recognition software. Attempts at proofreading were made, but errors may occasionally still occur. JAVIER Ruano 07/21/22 1219 Patient presents to the ED for a post of complication. Patient states she has tongue cancer and had a skin graft on from her right thigh on 07/12/22. Patient states since 3 days she had been bleeding from the graft site under her tongue. Patient states she sent pictures via [employer] to her doctor and they are afraid the graft is falling off. Patient if alert and oriented x4, VSS. No s/s of distress noted. documented in this encounter [facility] 07-21-2022 Physician Emergency department Note Images from the original note were not included. EMERGENCY DEPARTMENT ENCOUNTER CHIEF COMPLAINT Post-Op Problem HPI Astrid Dumont is a 67 y.o. female w history of dm, scc s/p partial glossectomy 07/12 who presents with oral bleeding and white stuff at base of tongue. She reports bleeding started yesterday , has been intermittent, yesterday was mouthfuls of blood stopped in the evening, reoocured this am, Not currently bleeding. Reports new 'white stuff at base of tongue over graft site. Denies fevers or chills, headache, difficulty swallowing, nausea vomiting, chest pain sob. Discussed with ent team over phone who recommended pt come to ED for evaluation. PAST MEDICAL HISTORY Past Medical History: Diagnosis Date Arthritis Diabetes mellitus Squamous cell carcinoma, keratinizing SURGICAL HISTORY Past Surgical History: Procedure Laterality Date GLOSSECTOMY LESS THAN 1/2 TONGUE Right 07/12/2022 Laterality: Right; Surgeon: Ricky Bingham MD; Location: [facility] MAIN OR GRAFT SKIN SPLIT THICKNESS EAR EYELID FACE MOUTH ORBIT ([facility]) N/A 07/12/2022 Laterality: N/A; Surgeon: Ricky Bingham MD; Location: [facility] MAIN OR LYMPHADENECTOMY CERVICAL (MODIFIED RADICAL NECK DISSECTION) Right 07/12/2022 Laterality: Right; Surgeon: Ricky Bingham MD; Location: [facility] MAIN OR KNEE REPLACEMENT Right KNEE REPLACEMENT Left LITHOTRIPSY ROTATOR CUFF REPAIR CURRENT MEDICATIONS Current Outpatient Medications Medication Sig acetaminophen 325 MG tablet Take 2 tablets by mouth every 6 hours as needed for Moderate Pain or Severe Pain. allopurinol 300 MG tablet Take 100 mg by mouth daily every morning. aspirin 81 MG Chew Tab chewable tablet Chew 81 mg daily every morning. atenolol 50 MG tablet Take 25 mg by mouth daily every morning. atorvastatin 10 MG tablet Take 10 mg by mouth at bedtime. Calcium Carbonate (CALCIUM 500 PO) Take 1,000 mg by mouth daily every morning. cetirizine 10 MG tablet Take 10 mg by mouth every evening at 6 PM. chlorhexidine 0.12 % Solution oral solution Take 15 mL by mouth every 12 hours for 14 days. cholecalciferol 50 MCG (2000 UT) capsule Take 2,000 Units by mouth daily every morning. Eluxadoline 100 MG tablet Take 100 mg by mouth as needed. Empagliflozin 10 MG tablet Take 25 mg by mouth daily every morning. escitalopram 5 MG tablet Take 10 mg by mouth daily every morning. hydroCHLOROthiazide 25 MG tablet Take 25 mg by mouth daily every morning. hydroxychloroquine 200 MG tablet Take 200 mg by mouth 2 times daily. Levothyroxine Sodium (LEVOTHYROXINE PO) Take 75 mcg by mouth at bedtime. Magnesium Oxide (MAG-OX 400 PO) Take 400 mg by mouth 2 times daily. Melatonin 5 MG capsule Take 5 mg by mouth as needed. metFORMIN 500 MG tablet Take 500 mg by mouth 2 times daily with meals. Multiple Vitamins-Minerals (WOMENS 50+ MULTI VITAMIN/MIN PO) Take 1 tablet by mouth daily every morning. Potassium Citrate 15 MEQ (1620 MG) Tab CR 1 ALLERGIES Allergies Allergen Reactions *Seasonal Sulfa Antibiotics FAMILY HISTORY History reviewed. No pertinent family history. SOCIAL HISTORY Social History Socioeconomic History Marital status: Tobacco Use Smoking status: Never Smokeless tobacco: Never Substance and Sexual Activity Alcohol use: Never Drug use: Never REVIEW OF SYSTEMS CONSTITUTIONAL: No Fever, no chills, no change in activity level, no unexpected weight loss/ gain, no fatigue. HENT: No vision changes, no nasal drainage, no throat pain or swelling, no lymphadenopathy. + oral bleeding CARDIO: No chest pain or pressure, no palpitations, no shortness of breath, no extremity edema. RESPIRATORY: No cough, no wheezing, no shortness of breath. GI: No abdominal pain, no nausea, no vomiting, no bloody or black tarry stools, no constipation, no diarrhea, no flank pain. : No dysuria, no change in urine output, no hematuria, no frequency. No vaginal pain, no vaginal bleedin MSK: No arthralgias, no myalgias, no back pain, no weakness. SKIN: No wounds, no rashes, no pallor or jaundice. NEUROLOGIC: No headaches, no vision changes, no dizziness, no weaknesses. HEMATOLOGIC: No bruising, no bleeding. ALLERGY/IMMUNE: No allergic or immune reactions. PHYSICAL EXAM VITAL SIGNS: BP 151/69 Pulse 68 Temp 98.1 F (36.7 C) (Oral) Resp 18 Ht 1.575 m (5' 2 ) SpO2 98% BMI 35.48 kg/m Smoking Status Never On room air General appearance: alert, cooperative, appears stated age Eye: PERRLA Oral: No active bleeding Neck: supple, symmetrical, trachea midline and no adenopathy Lungs: clear to auscultation bilaterally, respirations even and unlabored Heart: regular rate and rhythm, S1, S2 normal, no murmur, click, rub or gallop Abdomen: soft, non-tender. Bowel sounds normal. No masses, no organomegaly Extremities: extremities normal, atraumatic, no cyanosis or edema, dp pulses intact and symmetric Neurologic: AOx3. Gait normal. Reflexes and motor strength normal and symmetric. Cranial nerves 2-12 and sensation grossly intact Skin: Dry and intact, no rashes or open wounds Psych: appropriate affect, no si or hi I reviewed the patients medical records and noted their allergies, past medical history, and previous visits. I reviewed the nursing notes and vitals. ED COURSE & MEDICAL DECISION MAKING ASSESSMENT: Post operative oral bleeding and changes to graft site, Concern for dehiscence vs infection, eval for anemia PLAN: ent consult [facility] ED COURSE UPDATE: I have reviewed the labs and imaging for the visit and noted the abnormal results. Wbc 7.57, hgb 13.5, plt 346 discussed with ENT who evaluated patient at bedside -- silver nitrate to 2 pinpoint areas of bleeding. Monitor 24 hrs for recurrent bleeding Discussed with patient who verbalized understanding, in agreement with plan Notify ENt if bleeding reoccurs FINAL IMPRESSION: Oral bleeding Changes to graft site DISPOSITION: Observation This was a shared visit with Dr. Ovalle The plan of care and all medication prescriptions for this patient were discussed with the attending physician. This note dictated using [employer] medical voice recognition software. Attempts at proofreading were made, but errors may occasionally still occur. JAVIER Ruano 07/21/22 1219 [facility] 07-21-2022 Emergency department Note Patient presents to the ED for a post of complication. Patient states she has tongue cancer and had a skin graft on from her right thigh on 07/12/22. Patient states since 3 days she had been bleeding from the graft site under her tongue. Patient states she sent pictures via [employer] to her doctor and they are afraid the graft is falling off. Patient if alert and oriented x4, VSS. No s/s of distress noted. [facility] 07-17-2022 History of Presen t illness Narrative Pt discharged home with all personal belongings via private vehicle. Reviewed AVS with pt. All questions answered. PIV removed per policy. Nutrition Note S/O DHT removed and diet advanced this morning. Pt is tolerating oral diet thus far. Met with pt at bedside to review high calorie/protein diet at home, encouraging small and frequent meals/snacks and use of oral supplements (Glucerna or other lower-CHO option) for added nutrition. Current Diet Orders Procedures DIET SOFT AND BITE SIZED (IDDSI 6) Liquid Thin (IDDSI 0) Standing Status: Standing Number of Occurrences: 1 Order Specific Question: Determine a Liquid Consistency: Answer: Liquid Thin (IDDSI 0) Carie BETANCOURTLORENA,CNSC, RN Pager #[phone] ENT Speech- Clinical Swallow Evaluation Diet recommendation: Soft and bite sized solids (dysphagia level 6)/ Thin liquids -left sided bolus placement -intermittent liquid wash as needed Discharge recommendation: Recommend ongoing ST services at discharge. Please schedule pt with ENT DIESEL ROLLER OPERATOR in conjunction with ENT MD follow-up appointment for clinical swallowing evaluation vs FEES. Therapy Indicated During Inpatient Stay: No Inpatient Frequency: Inpatient DIESEL ROLLER OPERATOR will s/o History: 67 y.o. 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 No baseline FEES. Current PO diet: Soft and bite sized solids/ thin liquids (no TFs) Subjective: Pt participated in swallow evaluation. RN approved intervention. Pt seated upright in bed/chair with minimum pain. Pt reported no significant difficulty w/ current diet. Subjective voice evaluation G(0) R(0) B(0) A(0) S(0) Grade of dysphonia (G), Roughness (R), Breathiness (B), Asthenia (A), and Strain (S) 0 = healthy voice, 1 = light dysphonia, 2 = moderate, 3 = severe Pitch: WFL Volume: WFL Cognitive Screen: The Orientation Log (O-Log) is designed to be a quick quantitative measure of orientational status for use at bedside with rehabilitation inpatients. Place, time, and situational (Etiology/Event + Pathology/Deficits) domains are assessed. Patient responses are scored according to the following criteria: 3 = correct spontaneously or upon first free recall attempt; 2 = correct upon logical cueing (e.g., That was yesterday, so today must be ); 1 = correct upon multiple choice or phonemic cuing; and 0 = incorrect despite cueing, inappropriate response, or unable to respond. 07/17/22 Administration and Scoring [facility] Kind of Place Name of Hospital Month Date Year Day of Week Clock Time Etiology / Event Pathology Deficits Total Score 30 Oral Motor Examination Structure ROM/Strength Mandible WFL Lips WFL Tongue Decreased R lateral movement, decreased superior movement, decreased strength on R Oral Mucosa WFL Velum WFL Sensation/Reflexes WFL Facial Symmetry WFL Dentition Normal Objective and Assessment Respiratory Status: RA Consistencies Administered: thin liquid via cup x8, puree x3, soft solid x2 Oral Phase: Adequate anterior oral containment. Pt independently used L sided bolus placement. Mildly prolonged mastication, but effective. Visible A-P transfer, but prolonged. No appreciable oral residuals. Pt reported use of liquid wash as needed to clear any R sided pocketing/ residuals. Pharyngeal Phase: Visible swallow initiation. No post-swallow s/o aspiration. Strategies Attempted: L sided bolus placement Impressions: Pt presents with mild oral dysphagia-- decreased R lateral movement and R lingual strength is contributing toward prolonged mastication and oral transfer. Dysphagia is secondary to changes s/p R partial glossectomy. Fortunately, patient is appropriate to continue with diet as ordered with use of strategies. She is consuming the least restrictive diet anticipated for her inpatient stay, and is implementing strategies independently, so inpatient DIESEL ROLLER OPERATOR services are no longer warranted. The above was discussed with pt, RN and MD team. Recommendations: Soft and bite sized solids (dysphagia level 6)/ Thin liquids -left sided bolus placement -intermittent liquid wash as needed Care plan: Inpatient DIESEL ROLLER OPERATOR will s/o ROQUE Loco ENT Speech Pathology Pager: [phone] Charge: Swallow/ Dysphagia Evaluation CPT Code: 16141 P[facility] notified by PCRAbigail that patient no longer requires C services, referral cancelled. Sonia GEE, RN Post Acute Staffing Mgr Discharge Planning- [facility] Discharge Note Patient discussed in medical rounds for discharge to home today. PCR met with the patient/family/spouse to discuss final discharge plan. Services for Discharge No skilled needs anticipated for discharge at this time. Patient will be assisted at home by her daughter. They will purchase Ensure Plus (or an equivalent product) over the counter until cleared for an oral diet. Consults with Final Discharge Recommendations N/A at this time Lines/Tubes/Drains/Wounds/Supplie s Preneo to wound- no care needed Thigh skin graft site- open to air, cover with Eucerin cream as needed. Medications No barriers anticipated in obtaining discharge medications. No prior authorizations anticipated. Reconciliation of medications to be completed by the medical team. Durable Medical Equipment N/A Choice Was Patient Choice Provided: N/A Transportation Transportation will be provided by family via private car. Education Discharge education provided by the medical team and updated in the After Visit Summary. Follow Up(s) Any follow up requested by the medical team arranged. Appointments in the After Visit Summary. Was Ambulatory PCRM added to the Care Team? N/A The PCRM has updated the patient's nurse regarding the final discharge plan. Risk of Readmission: 3.7 Category Reference: Low: 0% - 5% Medium - Low: 5.1% - 10% Medium - High: 10.1% - 16% High: 16.1% - 100% No other discharge needs have been identified at this time. This plan was developed in collaboration with the patient and caregiver/preferred decision maker. Patient and family are in agreement with final discharge plan. Please refer to AVS and medical record for additional information. Patient instructed to call with questions. PCRM will continue to follow with medical team for any additional discharge planning needs. If any changes to this individualized plan of care during evening and weekend hours and assistance is needed, please page the irrigation supervisor PCRM at [phone]. Final Discharge Planning Discharge Disposition: Home CM/SW AVS Portion Completed: Yes Head & Neck Surgery Daily Progress Note Last 24 Hours DHT pulled out overnight AFVSS on room air Xeroform bolster taken down this AM Remaining drain removed Plan to advance to soft diet today Last Bowel Movement: 07/16/22 Physical Exam BP 164/69 (BP Location: Right arm, BP Position: Lying) Pulse 65 Temp 97.7 F (36.5 C) (Axillary) Resp 18 Ht 1.575 m (5' 2 ) Wt 88 kg (194 lb) SpO2 96% BMI 35.48 kg/m Smoking Status Never Smoker Alert, oriented, NAD Intraoral bolster in place over skin graft - removed Non-labored breathing, in no respiratory distress or no stridor JOE neck drain ssg holding suction - drain removed Neck flat, incisions C/D/I No evidence of fluid collection, dehiscence, or necrosis Tongue midline, shoulder shrug intact Right left skin graft site dressed, no drainage SCDs in place Laboratory Studies & Objective Data Temp: [97.7 F (36.5 C)-99.8 F (37.7 C)] 97.7 F (36.5 C) Pulse (Heart Rate): [65-100] 65 Resp Rate: [16-18] 18 BP: (118-164)/(65-70) 164/69 O2 Sat (%): [96 %-98 %] 96 % Oxygen Therapy O2 Sat (%): 96 % O2 Device: room air Flow (L/min): 0 Fluid Management (24hrs): Intake/Output last 3 shifts: I/O last 3 completed shifts: In: 1433.2 [I.V.:453.2; NG/GT:680; IV Piggyback:300] Out: 11 [Other:10] WBC/Hgb/Hct/Plts: 7.13/12.9/39.5/253 (07/17 346) Na/K+/Phos/Mg/Ca: 138/4.0/3.5/1.6/9.5 (07/17 346) Bun/Creat/Cl/CO2/Glucose: 15/0.74/100/29/174 (07/17 346) Assessment & Plan 67 y.o. female POD 5 s/p R partial glossectomy, R SND levels I-V, STSG PLAN Airway (trach/stomavent): [place] Diet: NPO with tube feeds until follow up with ARMANDO in 1 week --> may have sips of water/ice chips when bolster taken down POD5 Drains: 2 right neck RWR Sutures/cody: Dermabwally tomas, STSG site (puracol/tegederm), intraoral bolster down POD5 Antibiotics: Unasyn while bolster in x 5 days Consults: PRN PT/OT/DIESEL ROLLER OPERATOR: PRN Anticoagulation: lovenox, ASA 81 (home meds) Labs (TSH/free T4/Ca): routine Pertinent PMH/Red flags/needs: Pre-operative examination for internal medicine - 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 Will complete last dose today - Remaining drain removed - OOB TID or more, encourage ambulation - Reflux management - eucerin TID to skin graft site - anticipate dispo to home today Renetta Pérez MD Otolaryngology - Head & Neck Surgery Personal pager [phone] [facility] Home Health Following Physician Confirmation Following Physician:Ricky Bingham MD Physician Service: Surgery Agreeable to Follow: Yes Spoke with: verified with pcrm P[facility] Coordination Note Patient received in handoff from correctional case manager for potential homecare services. Will continue to follow with correctional case manager for plan of care. Sonia GEE, RN Post Acute Staffing Mgr Discharge Planning for Home Health Options for discharge have been discussed with patient and family. Patient and family agree the post hospital care needs will best met at home with home care services. Background Information/ Hospital Overview: Patient is 67 years old and is s/p Right partial glossectomy, Right Selective Neck Dissection, STSG Services needed: Residential Residential Needs Nursing assessment Teaching- dobhoff/enteral care Line / tube / drain type and care needed Dobhoff tube Wound Care Incision line care Oxygen requirements / airway N/A Lab work: type and frequency N/A Specialty Medications: (chemotherapy / IV antibiotics / Hydration) N/A Additional information regarding needed services: Patient will return to have an oral diet trial in 1 week. Tube removed at that time. Teachable Caregiver / Family Support: Daughter is a teachable caregiver and will be willing to work with [facility] to obtain education if there are complex teaching services needed for the patient. Physician following for home care orders / phone: Ricky Bingham MD [phone] COVID-19 Vaccination Record: Has patient been vaccinated? Yes Brand: Pfizer Dates Given: 07/01/22 Discharge Planning- [facility] Inpatient PCR Discharge Note Patient discussed in medical rounds for discharge to home, possibly tomorrow. PCRM met with the patient/family/spouse to discuss final discharge plan. Services for Discharge No skilled needs anticipated for discharge at this time. Patient will be assisted at home by her daughter. They will purchase Ensure Plus (or an equivalent product) over the counter until cleared for an oral diet. Consults with Final Discharge Recommendations N/A at this time Lines/Tubes/Drains/Wounds/Supplie s Dobhoff tube Preneo to wound- no care needed Drain- should be removed prior to discharge Medications No barriers anticipated in obtaining discharge medications. No prior authorizations anticipated. Reconciliation of medications to be completed by the medical team. Durable Medical Equipment N/A Choice Was Patient Choice Provided: N/A Transportation Transportation will be provided by family via private car. Education Discharge education provided by the medical team and updated in the After Visit Summary. Follow Up(s) Any follow up requested by the medical team arranged. Appointments in the After Visit Summary. Was Ambulatory PCRM added to the Care Team? N/A The PCRM has updated the patient's nurse regarding the final discharge plan. Risk of Readmission: 3.7 Category Reference: Low: 0% - 5% Medium - Low: 5.1% - 10% Medium - High: 10.1% - 16% High: 16.1% - 100% No other discharge needs have been identified at this time. This plan was developed in collaboration with the patient and caregiver/preferred decision maker. Patient and family are in agreement with final discharge plan. Please refer to AVS and medical record for additional information. Patient instructed to call with questions. PCRM will continue to follow with medical team for any additional discharge planning needs. If any changes to this individualized plan of care during evening and weekend hours and assistance is needed, please page the irrigation supervisor PCRM at [phone]. Final Discharge Planning Discharge Disposition: Home CM/SW AVS Portion Completed: Yes Head & Neck Surgery Daily Progress Note Last 24 Hours No acute events overnight. AFVSS on room air Having diarrhea with tube feeds No nausea or emesis Intraoral crusting removed Lateral drain - drain 2 removed Last Bowel Movement: 07/15/22 Physical Exam BP 134/63 (BP Location: Right arm, BP Position: Lying) Pulse 69 Temp 97.5 F (36.4 C) (Oral) Resp 16 Ht 1.575 m (5' 2 ) Wt 88 kg (194 lb) SpO2 96% BMI 35.48 kg/m Smoking Status Never Smoker Alert, oriented, NAD Intraoral flap in place with bolster Non-labored breathing, in no respiratory distress or no stridor 2 JOE neck drains ssg holding suction - drain 2 removed Neck flat, incisions C/D/I No evidence of fluid collection, dehiscence, or necrosis Tongue midline, shoulder shrug intact Right left skin graft site dressed, no drainage SCDs in place Laboratory Studies & Objective Data Temp: [97.5 F (36.4 C)-99.5 F (37.5 C)] 97.5 F (36.4 C) Pulse (Heart Rate): [65-78] 69 Resp Rate: [16] 16 BP: (124-138)/(61-78) 134/63 O2 Sat (%): [96 %-97 %] 96 % Oxygen Therapy O2 Sat (%): 96 % O2 Device: room air Flow (L/min): 0 Fluid Management (24hrs): Intake/Output last 3 shifts: I/O last 3 completed shifts: In: 1677.3 [I.V.:81.2; NG/GT:1360; IV Piggyback:236.1] Out: 28 [Urine:3; Other:25] WBC/Hgb/Hct/Plts: 6.39/11.7/36.9/209 (07/16 318) Na/K+/Phos/Mg/Ca: 140/3.9/3.3/2.0/8.6 (07/16 318) Bun/Creat/Cl/CO2/Glucose: 13/0.72/102/28/173 (07/16 318-07/16 544) Assessment & Plan 67 y.o. female POD 4 s/p R partial glossectomy, R SND levels I-V, STSG PLAN Airway (trach/stomavent): [place] Diet: NPO with tube feeds until follow up with ARMANDO in 1 week --> may have sips of water/ice chips when bolster taken down POD5 Drains: 2 right neck RWR Sutures/cody: Dermabond prineo, STSG site (puracol/tegederm), intraoral bolster down POD5 Antibiotics: Unasyn while bolster in x 5 days Consults: PRN PT/OT/DIESEL ROLLER OPERATOR: PRN Anticoagulation: lovenox, ASA 81 (home meds) Labs (TSH/free T4/Ca): routine Pertinent PMH/Red flags/needs: Pre-operative examination for internal medicine - 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 Drain 2 removed today - OOB TID or more, encourage ambulation - Reflux management Renetta Pérez MD Otolaryngology - Head & Neck Surgery Personal pager [phone] Summary: Psychosocial Assessment Psychosocial Assessment Per chart review, patient is a 67 y.o. female POD 3 s/p R partial glossectomy, R SND levels I-V, STSG SW met with patient to introduce self, explain social science professor role during inpatient stay, and answer patient questions. Patient was alert and oriented x4 and agreeable to SW visit. Information Source Information Source: patient , review of medical record Information Source Name: [place] Source Number: [phone] Contact Information Parts Clerk Plant Maintenance Name: Regina COOPER, [facility] Parts Clerk Plant Maintenance's Social Work Contact Name: Ethel ZAFAR Cassandra Consultant's Phone Number: [phone] Referral Source: admission list Living Environment Lives With: alone Living Arrangements: house Provides Primary Care For: no one Primary Care Provided By: self Support System: Immediate family Able to Return to Prior Arrangements: yes Employment/Financial Employed?: Retired Employment/Financial Concerns: no Source Of Income: social security Financial Concerns: none Cognitive/Perceptual/Developmenta l Current Mental Status/Cognitive Functioning: no deficits noted Recent Changes in Mental Status/Cognitive Functioning: no changes Developmental Stage: Stage 8 (67 years-/Late Adulthood) Integrity vs. Despair Emotional/Psychological Affect: no deficits noted Mood: congruent to situation Verbal Skills: no deficits noted Current Interpersonal Conduct/Behavior: appropriate to situation Mental Health Conditions/Symptoms: none Thought Process Alterations: no deficits noted Previous Mental Health Treatment: none Values/Beliefs (F) Amanda Importance: Sw made patient aware of coal tower operator services. Patient Coping/Stress Concerns Patient Coping/Stress Concerns: No Major Change/Loss/Stressor: medical condition/diagnosis, hospitalization, surgery/procedure Patient Personal Strengths: able to adapt, assertive, strong support system, future/goal oriented, motivated, positive attitude Sources Of Support: adult child(dada) Reaction To Health Status: accepting, adjusting Understanding Of Condition And Treatment: adequate understanding of medical condition Coping Interventions (Adult) Plan Of Care Reviewed With: patient Anxiety Management: age appropriate communication techniques utilized, emotional support provided, family presence promoted Emotional Support: family presence promoted Therapeutic Relationship Promotion: emotional support provided Major Change/Loss/Stressor: medical condition/diagnosis, hospitalization, surgery/procedure Advance Directives: Per chart review, patient does not have any advance directives on file, however, patient reports that they have already completed advance directives and states the document(s) are at home. WILLIE reviewed that without completed document on file, per [place] Law, daughter, Sandra , (ph:[phone]) would be their Legal NOK for decision making. SW requested patient provide the hospital with a copy of the document when possible so that it can be scanned into their medical record. Patient agreeable to this plan. Legal NOK: Sandra, Teresa & Fausto (children) Substance Use: Tobacco: patient denies use Alcohol: patient denies use Recreational Drugs: patient denies use Community Resources: none Home Health / DME: none / none Health Insurance / Rx: Medicare A&B / [facility] Anticipated Discharge Plan: final plan will be determined closer to discharge, pending therapy and medical team recommendations. Medical Team Considerations: none SW Interventions/Recommendations: Service SW name and contact information placed on white board in patient's room to contact as needed. SW will continue to remain available to provide assistance and support as needed during inpatient stay. Ethel COOPER-Monik Clinical Cassandra Consultant Pager: [phone]: [phone] For Evening (4:30pm-8am) and Weekend SW needs please call [phone] or page [phone] Introduced self and role of the coal tower operator to patient, Astrid. Astrid expressed appreciation for the visit and reported no spiritual care needs at this time. I expressed support for Astrid and provided information regarding 05/05 coal tower operator availability and how to contact. If spiritual/emotional needs should arise, please page [phone]. Chaplains are available in-house 24 hours a day and 7 days a week. For urgent matters in the [facility], please page [phone]. If the request is not urgent, please enter a consult. Consults are responded to within 24 hours. Panchito Chase M.Div, [facility] Staff Forms AnalystCaleb [employer] [facility] 05/05 On-Call Pager: [phone] 07/15/22 1020 Clinical Encounter Type Visited With Patient Visit Type Introduction Pastoral Time Spent 15 min Referral Other (See Comment) (Rounding) Interventions Provided Active listening;Supportive presence Reports Analyst Education Reports Analyst Service Available Yes Educated Patient Plan of Care Continue Visiting PRN Head & Neck Surgery Daily Progress Note Last 24 Hours No acute events overnight. AFVSS on room air Accidentally removed DHT last night, replaced with X ray confirmation. Tube feeds restarted Last Bowel Movement: 07/14/22 Physical Exam BP 140/62 (BP Location: Right arm, BP Position: Lying) Pulse 67 Temp 99.3 F (37.4 C) (Axillary) Resp 16 Ht 1.575 m (5' 2 ) Wt 88 kg (194 lb) SpO2 97% BMI 35.48 kg/m Smoking Status Never Smoker Alert, oriented, NAD Intraoral flap in place with bolster Non-labored breathing, in no respiratory distress or no stridor 2 JOE neck drains ssg holding suction Neck flat, incisions C/D/I No evidence of fluid collection, dehiscence, or necrosis Tongue midline, shoulder shrug intact Right left skin graft site dressed, no drainage SCDs in place Laboratory Studies & Objective Data Temp: [97.4 F (36.3 C)-99.3 F (37.4 C)] 99.3 F (37.4 C) Pulse (Heart Rate): [62-78] 67 Resp Rate: [12-16] 16 BP: (113-140)/(58-67) 140/62 O2 Sat (%): [94 %-98 %] 97 % Oxygen Therapy O2 Sat (%): 97 % O2 Device: room air Fluid Management (24hrs): Intake/Output last 3 shifts: I/O last 3 completed shifts: In: 1201.6 [I.V.:372.2; NG/GT:680; IV Piggyback:149.5] Out: 1963 [Urine:1902; Other:61] WBC/Hgb/Hct/Plts: 6.80/11.7/36.0/183 (07/15 335) Na/K+/Phos/Mg/Ca: 140/3.8/3.2/1.7/9.0 (07/15 335) Bun/Creat/Cl/CO2/Glucose: 11/0.73/102/28/145 (07/15 335-07/15 551) Assessment & Plan 67 y.o. female POD 3 s/p R partial glossectomy, R SND levels I-V, STSG PLAN Airway (trach/stomavent): [place] Diet: NPO with tube feeds until follow up with ARMANDO in 1 week --> may have sips of water/ice chips when bolster taken down POD5 Drains: 2 right neck RWR Sutures/cody: Dermabond prineo, STSG site (puracol/tegederm), intraoral bolster down POD5 Antibiotics: Unasyn while bolster in x 5 days Consults: PRN PT/OT/DIESEL ROLLER OPERATOR: PRN Anticoagulation: lovenox, ASA 81 (home meds) Labs (TSH/free T4/Ca): routine Pertinent PMH/Red flags/needs: Pre-operative examination for internal medicine - 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 Hyperlipidemia, unspecified hyperlipidemia type Type 2 diabetes mellitus without complication, without long-term current use of insulin History of palpitations Hypothyroidism, unspecified type Gastroesophageal reflux disease, unspecified whether esophagitis present Inflammatory arthritis Obesity (BMI 30-39.9) Today: - NPO with TF - intraoral bolster down POD5 - unasyn with bolster in x5 days - appreciate nutrition TF recs - replete lytes - Drain management - OOB TID or more, encourage ambulation - Reflux management Renetta Pérez MD Otolaryngology - Head & Neck Surgery Personal pager [phone] Head & Neck Surgery Daily Progress Note Last 24 Hours No acute events overnight. Brief temp of 100.7F overnight Having feeling of reflux Pain controlled Left madeline wrap taken down Last Bowel Movement: 07/14/22 Physical Exam BP 113/58 (BP Location: Right arm, BP Position: Lying) Pulse 62 Temp 98.2 F (36.8 C) (Axillary) Resp 14 Ht 1.575 m (5' 2 ) Wt 88 kg (194 lb) SpO2 95% Comment: 95 BMI 35.48 kg/m Smoking Status Never Smoker Alert, oriented, NAD Intraoral flap in place with bolster Non-labored breathing, in no respiratory distress or no stridor 2 JOE neck drains ssg holding suction Neck flat, incisions C/D/I No evidence of fluid collection, dehiscence, or necrosis Tongue midline, shoulder shrug intact Right left skin graft site dressed, no drainage SCDs in place Laboratory Studies & Objective Data Temp: [98.2 F (36.8 C)-100.7 F (38.2 C)] 98.2 F (36.8 C) Pulse (Heart Rate): [61-72] 62 Resp Rate: [14-16] 14 BP: (107-120)/(53-69) 113/58 O2 Sat (%): [95 %-97 %] 95 % Oxygen Therapy O2 Sat (%): 95 % (95) O2 Device: room air Fluid Management (24hrs): Intake/Output last 3 shifts: I/O last 3 completed shifts: In: 1565.4 [I.V.:255.4; NG/GT:1060; IV Piggyback:250] Out: 1570 [Urine:1500; Other:70] WBC/Hgb/Hct/Plts: 8.07/11.3/35.0/180 (07/14 254) Na/K+/Phos/Mg/Ca: 137/3.7/2.4/1.7/8.6 (07/14 254) Bun/Creat/Cl/CO2/Glucose: 13/0.71/100/30/163 (07/14 254-07/14 534) Assessment & Plan 67 y.o. female POD 2 s/p R partial glossectomy, R SND levels I-V, STSG PLAN Airway (trach/stomavent): [place] Diet: NPO with tube feeds until follow up with ARMANDO in 1 week --> may have sips of water/ice chips when bolster taken down POD5 Drains: 2 right neck RWR Sutures/cody: Dermabond prineo, STSG site (puracol/tegederm), intraoral bolster down POD5 Antibiotics: Unasyn while bolster in x 5 days Consults: PRN PT/OT/DIESEL ROLLER OPERATOR: PRN Anticoagulation: lovenox, ASA 81 (home meds) Labs (TSH/free T4/Ca): routine Pertinent PMH/Red flags/needs: Pre-operative examination for internal medicine - 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 Hyperlipidemia, unspecified hyperlipidemia type Type 2 diabetes mellitus without complication, without long-term current use of insulin History of palpitations Hypothyroidism, unspecified type Gastroesophageal reflux disease, unspecified whether esophagitis present Inflammatory arthritis Obesity (BMI 30-39.9) Today: - NPO with TF - intraoral bolster down POD5 - unasyn with bolster in x5 days - appreciate nutrition TF recs - replete lytes - Drain management - OOB TID or more - Reflux management Renetta Pérez MD Otolaryngology - Head & Neck Surgery ENT [facility] (First Call) Pager [phone] Personal pager [phone] Head & Neck Surgery Daily Progress Note Last 24 Hours No acute events overnight. Surgery well tolerated yesterday Pain well controlled Physical Exam BP 107/53 (BP Location: Right arm, BP Position: Lying) Pulse 69 Temp 99.1 F (37.3 C) (Axillary) Resp 16 Ht 1.575 m (5' 2 ) Wt 88 kg (194 lb) SpO2 95% BMI 35.48 kg/m Smoking Status Never Smoker Alert, oriented, NAD Intraoral flap in place with bolster Non-labored breathing, in no respiratory distress or no stridor 2 JOE neck drains ssg holding suction Neck flat, incisions C/D/I No evidence of fluid collection, dehiscence, or necrosis Tongue midline, shoulder shrug intact Donor site: Donor site dressed, no drainage SCDs in place Laboratory Studies & Objective Data Temp: [98.2 F (36.8 C)-99.9 F (37.7 C)] 99.1 F (37.3 C) Pulse (Heart Rate): [65-92] 69 Resp Rate: [13-18] 16 BP: (92-146)/(50-73) 107/53 O2 Sat (%): [92 %-98 %] 95 % Weight: [88 kg (194 lb)] 88 kg (194 lb) Oxygen Therapy O2 Sat (%): 95 % O2 Device: room air Flow (L/min): 0 Fluid Management (24hrs): Intake/Output last 3 shifts: I/O last 3 completed shifts: In: 3077.3 [I.V.:1665.3; NG/GT:1212; IV Piggyback:200] Out: 2044 [Urine:1924; Other:90] WBC/Hgb/Hct/Plts: 9.39/12.0/37.3/221 (07/13 327) Na/K+/Phos/Mg/Ca: 139/3.8/3.5/1.7/8.8 (07/13 327) Bun/Creat/Cl/CO2/Glucose: 17/0.77/101/27/266 (07/13 327-07/13 1158) Assessment & Plan 67 y.o. female POD 1 s/p R partial glossectomy, R SND levels I-V, STSG PLAN Airway (trach/stomavent): [place] Diet: NPO with tube feeds until follow up with [facility]O in 1 week --> may have sips of water/ice chips when bolster taken down POD5 Drains: 2 right neck RWR Sutures/cody: Dermabond prineo, STSG site (puracol/tegederm), intraoral bolster down POD5 Antibiotics: Unasyn while bolster in x 5 days Consults: PRN PT/OT/DIESEL ROLLER OPERATOR: PRN Anticoagulation: lovenox, ASA 81 (home meds) Labs (TSH/free T4/Ca): routine Pertinent PMH/Red flags/needs: Pre-operative examination for internal medicine - 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 Hyperlipidemia, unspecified hyperlipidemia type Type 2 diabetes mellitus without complication, without long-term current use of insulin History of palpitations Hypothyroidism, unspecified type Gastroesophageal reflux disease, unspecified whether esophagitis present Inflammatory arthritis Obesity (BMI 30-39.9) Today: - NPO with TF - intraoral bolster down POD5 - unasyn with bolster in x5 days - appreciate nutrition TF recs - replete lytes - Drain management - OOB TID or more Shar Levine MD Otolaryngology - Head & Neck Surgery ENT [facility] (First Call) Pager [phone] Personal pager [phone] NUTRITION ASSESSMENT/CONSULT Nutrition Recommendations and Plan of Care: 1. Recommend TF: Jevity 1.5 @ 240mL/h 5x/daily via DHT - Goal rate will provide 1200 mL, 1800 kcal (36 kcal/kg), 77 g PRO (1.5 g pro/kg), and 912 mL free water. - Pt would require additional free water flushes 140 mL 5x/daily to meet basic hydration requirement. Recommend minimum 30 mL x 4/day to maintain tube patency. 2. Advance diet as medically appropriate per primary team 3. Monitor TF intake, bowel function, skin integrity, weight change, lab values. 4. RD to follow up Please note I am providing cross coverage for this day. For primary Dietitian contact information or up to date coverage please see [facility] schedule for Dietitian Machine Stuffer for the appropriate unit for Friday-Friday coverage or Dietitian Weekends/Holidays Schedule for weekend and holiday coverage. Thank you. Astrid Dumont is a 67 y.o. female with a past medical history of Arthritis, Diabetes mellitus, and Squamous cell carcinoma, keratinizing. Pt is POD#1 partial glossectomy (less than 1/2 right tongue), STSG, and modified radical neck dissection Past History Past medical, surgical, family, and social histories have been reviewed and are located elsewhere in the medical record. Nutrition History: Nutrition consult received for TF assessment per post-OP ENT protocol. Pt with gastric DHT in place post-op. Jevity 1.5 @ 240mL 5x daily initiated last night, pt endorses tolerating these feedings well. Last BM prior to admit. 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 Pt endorses some discomfort but denies that this significant impacted PO intake prior to admit. No recent significant weight changes to report. NFPE unremarkable. Diet Order: Current Diet Orders Procedures DIET NPO AND TUBE FEEDING WITHOUT meds If residuals are > 500 ml, hold feeds and re-check residuals again in 2 hours. Start enteral formula @@ 10 ml/hour and advance 10 ml every 4 hours to goal rate of 40 ml/hour. Administer 100 ml free water flush Q4 hours. NO ORAL MEDICATION PER MOUTH. Oral medication to be administered via enteral tube. Standing Status: Standing Number of Occurrences: 1 Order Specific Question: NPO Meds: Answer: WITHOUT meds Height: 157.5 cm (5' 2 ), Weight: 88 kg (194 lb) ; IBW- 50 kg. Currently @ 176% IBW /c Body mass index is 35.48 kg/m . Wt Readings from Last 10 Encounters: 07/12/22 88 kg (194 lb) 07/03/22 87.5 kg (193 lb) 06/13/22 88.1 kg (194 lb 4.8 oz) No recent significant weight loss per chart review. Limited weight history is available per chart review/CareEverywhere. Pt denies any recent weight changes. Labs reviewed: Na/K+/Phos/Mg/Ca: 139/3.8/3.5/1.7/8.8 (07/13 327) Bun/Creat/Cl/CO2/Glucose: 17/0.77/101/27/159 (07/13 327-07/13 524) WBC/Hgb/Hct/Plts: 9.39/12.0/37.3/221 (07/13 327) Meds: lactated ringers Stopped (07/12/22 1520) Ampicillin-Sulbactam (UNASYN) IVPB 1.5 g Intravenous Q6HNS docusate 100 mg Oral BID Or docusate 100 mg Per NG tube BID enoxaparin 40 mg Subcutaneous Q24H hydroxychloroquine 200 mg Per NG tube Daily insulin regular Subcutaneous Q6H Jevity 1.5 Arian/Fiber 240 mL Nasogastric 5x daily scopolamine 1 patch Transdermal Once senna 8.6 mg Oral Daily Or senna 8.6 mg Per NG tube Daily GI: +gastric-DHT; ND/NT Abdominal X-ray: The distal tip of the Dobbhoff tube is identified in the distal stomach. BM: RAILWAY HEAD TENDER Urine: 1925mL 07/12 Skin: Rosales Score: 20 Active Wounds: Incision (Adult, Pediatric) 07/12/22 0743 tongue (1) Incision (Adult, Pediatric) 07/12/22 0759 Right neck (1) Wound (Adult, Pediatric) 07/12/22 0951 Right upper thigh graft (1) Edema- none Estimated Nutrition Needs: Based on IBW (50kg) Estimated Kcals Needs: 3431-9886 kcals (32-36kcals/kg) Estimated Pro Needs: 75-100g Pro (1.5-2g/kg) Estimated Fluid Needs: Per MD Malnutrition Statement as evidenced by clinical characteristics: Indications of Malnutrition: No malnutrition based on the AND/ASPEN Malnutrition Criteria [address], LD Pager: [phone] Initial Assessment Referral Information Arrived From: operating room Readmission Information Was patient readmitted within 30 Days?: No Information Source Information Source: patient , review of medical record Information Source Name: Patient and daughter Outpatient Providers Outpatient Providers Updated In IHIS: No Contact Information Parts Clerk Plant Maintenance/SW Added to Care Team: Yes This Head Of Insight is Primary Parts Clerk Plant Maintenance/SW: Yes Parts Clerk Plant Maintenance Name: KENNETH Parikh ACM-SW Parts Clerk Plant Maintenance's Social Work Contact Name: KENNETH Schulte Cassandra Consultant's Living Environment Lives With: alone Living Arrangements: house Provides Primary Care For: no one Primary Care Provided By: child(dada), self Support System: Immediate family Able to Return to Prior Arrangements: yes Functional Status Patient's Functional Status Prior To This Admission?: Independent Are There Status Changes This Admisson?: No Changes Observed Since Admission?: No Changes Observed Concerns With Patient Being Able To Care For Themselves At Discharge? : Has Assistance (Friend, Family, Skilled Provider) Who Is Patient's Primary Contact For Discharge Planning, Education And Care For Discharge?: Daughter Can Support Person Meet The Care Needs Of The Patient?: Yes Employment/Financial Employed?: Retired Employment/Financial Concerns: no Source Of Income: social security Financial Concerns: none Insurance Medical Insurance Verified: Yes Prescription Coverage: Yes Pharmacy updated in IHIS: No Initial Discharge Planning Home Care Services (RAILWAY HEAD TENDER): No Home Therapies (RAILWAY HEAD TENDER): None DME (RAILWAY HEAD TENDER): None Medical Supplies (RAILWAY HEAD TENDER): None Patient Goal for Discharge: Return home with assistance from family and friends Anticipated discharge disposition: Home Anticipated Services at Discharge: Enteral supplies Anticipated Changes Related to Illness: none Current Discharge Risk: chronically ill, >65 years of age Transportation Available: car, family or friend will provide Assessment/Concerns to be Addressed Concerns To Be Addressed: no discharge needs identified, denies needs/concerns at this time Continued Stay Discharge Planning Anticipated discharge disposition: Home Anticipated Services at Discharge: Enteral supplies Social Work Assessment Information Source Information Source: patient , review of medical record Information Source Name: Patient and daughter Contact Information Parts Clerk Plant Maintenance/SW Added to Care Team: Yes This Head Of Insight is Primary Parts Clerk Plant Maintenance/SW: Yes Parts Clerk Plant Maintenance Name: KENNETH Parikh, CARMELO-WILLIE Parts Clerk Plant Maintenance's Social Work Contact Name: KENNETH Schulte Cassandra Consultant's Living Environment Lives With: alone Living Arrangements: house Provides Primary Care For: no one Primary Care Provided By: child(dada), self Support System: Immediate family Able to Return to Prior Arrangements: yes Employment/Financial Employed?: Retired Employment/Financial Concerns: no Source Of Income: social security Financial Concerns: none PCRM Initial Assessment Met with patient and her daughter to complete the initial assessment. Explained role and function of PCRM in multidisciplinary team. Contact number provided for questions. Demographic information reviewed with patient/family and confirmed as correct. Reason for Admission: surgery- R partial glossectomy, R SND levels I-V, STSG Estimated length of stay: 5 days Advanced directives Patient does not have Advanced Directives on File Lines/Drains/Tubes Dobhoff JOE drains Skin graft site Initial PCRM Discharge Planning Met with patient to introduce myself and notify her of my role with team. Patient plans to discharge home with assistance from her family. Patient will have a dobhoff tube at discharge. She is going to begin teaching with research staff member. She is aware that she will purchase Ensure Plus (or equivalent product) over the counter. Will continue to follow and will assist as needed. Final plan will be determined closer to discharge, pending therapy and medical team recommendations. Patient verbalized understanding and agreement with the plan of care. Patient have no questions at this time. PCRM will continue to follow patient with multidisciplinary team for ongoing assessment of needs and for discharge planning. Medical team updated. documented in this encounter [facility] Referral ID Status Reason Start Date Expiration Date Visits Re quested Visits Authorized * (Routine) - New Request Specialty Diagnoses / Procedures Referred By Contac t Referred To Contact Procedures PLATELET MONITORING PER PROTOCOL Ricky Bingham MD [address] [place] [address] Referral ID Status Reason Start Date Expiration Date V isits Requested Visits Authorized [id number] New Request 07/12/2022 08/06/2023 1 1 * (Routine) - New Request Specialty Diagnoses / Procedures Referred By Contac t Referred To Contact Procedures DVT/VTE RISK ASSESSMENT Ricky Bingham MD [address] [place] [address] Referral ID Status Reason Start Date Expiration Date V isits Requested Visits Authorized [id number] New Request 07/12/2022 08/06/2023 1 1 * (Routine) - New Request Specialty Diagnoses / Procedures Referred By Contac t Referred To Contact Procedures DVT/VTE RISK ASSESSMENT Ricky Bingham MD [address] [place] [address] Referral ID Status Reason Start Date Expiration Date V isits Requested Visits Authorized [id number] New Request 07/12/2022 08/06/2023 1 1 [facility] Note* Nursing Notes - Divya Jauregui RN - 07/16/2022 7:27 PM EDT Aruna MURCIA that pt pulled her dubhuff [facility]10-04-2022 Miscellaneous Notes* Nursing Notes - Divya Jauregui RN - 07/16/2022 7:27 PM EDT Aruna MURCIA that pt pulled her dubhuff * Nursing Notes - Karen Hong RN - 07/14/2022 12:24 PM EDT 1224: Aruna Alvarado Re: Phuong rm 1 pt dobhoff is clogged fyi, trying to get in unclogged butso far unsuccessful. going to try clog zapper, will keep you updated. may have to place a new tube.thanks Karen Gray 1329: aruna Alvarado Re: Phuong rm 2111 pt has dirrhea which she said is common for her after taking stool softeners. she is requesting something to slow diarrhea down. thanks Karen Gray 1830: aruna Alvarado Re: Phuong rm 2111 pt accidentally pulled out dobhoff. will need replaced toresume tube feeds and give any meds. thanks Karen Gray * Plan of Care - Nina Beck RD - 07/13/2022 9:10 AM EDT Nutrition Recommendations and Plan of Care: 1. Recommend TF: Jevity 1.5 @ 240mL/h 5x/daily via DHT - Goal rate will provide 1200 mL, 1800 kcal (36 kcal/kg), 77 g PRO (1.5 g pro/kg), and 912 mL free water. - Pt would require additional free water flushes 140 mL 5x/daily to meet basic hydration requirement. Recommend minimum 30 mL x 4/day to maintain tube patency. 2. Advance diet as medically appropriate per primary team 3. Monitor TF intake, bowel function, skin integrity, weight change, lab values. 4. RD to follow up * Nursing Notes - Barbara Young RN - 07/12/2022 2:52 PM EDT Ms. Dumont is admitted to 2110 from PACU at this time and her skin is WDL except for oral and neckincisions and wound drains. Barbara Young RN 07/12/2022 * Plan of Care - Taylor Burns MD - 07/12/2022 10:40 AM EDT CPERI/POOL Astrid Dumont POD# 0 Surgeon: Zachery Diagnosis: R posterolateral tongue SCC Procedure: R partial glossectomy, R SND levels I-V, STSG PLAN Airway (trach/stomavent): [place] Diet: NPO with tube feeds until follow up with ARMANDO in 1 week --> may have sips of water/ice chips when bolster taken down POD5 Drains: 2 right neck RWR Sutures/cody: Dermabond prineo, STSG site (puracol/tegederm), intraoral bolster down POD5 Antibiotics: Unasyn while bolster in x 5 days Consults: PRN PT/OT/DIESEL ROLLER OPERATOR: PRN Anticoagulation: lovenox, ASA 81 (home meds) Labs (TSH/free T4/Ca): routine Pertinent PMH/Red flags/needs: Pre-operative examination for internal medicine - 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 Hyperlipidemia, unspecified hyperlipidemia type Type 2 diabetes mellitus without complication, without long-term current use of insulin History of palpitations Hypothyroidism, unspecified type Gastroesophageal reflux disease, unspecified whether esophagitis present Inflammatory arthritis Obesity (BMI 30-39.9) Follow ups: ARM[facility]O 1 week for eval, possible remove NG Dispo: Anticipate dispo on POD#5 to home with tube feeds * Brief Op Note - Taylor Burns MD - 07/12/2022 10:33 AM EDT Astrid Dumont ([id number]) PRE OPERATIVE DIAGNOSIS 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 [C02.3] POST OPERATIVE DIAGNOSIS Post-Op Diagnosis Codes: * 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 [C02.3] PROCEDURE PERFORMED Procedure(s) (LRB): GLOSSECTOMY LESS THAN 1/2 TONGUE (Right) GRAFT SKIN SPLIT THICKNESS EAR EYELID FACE MOUTH ORBIT (STSG) (N/A) LYMPHADENECTOMY CERVICAL (MODIFIED RADICAL NECK DISSECTION) (Right) PRIMARY CLOSURE Yes INTRAOPERATIVE FINDINGS No significant abnormalities SURGEON Surgeon(s) and Role: * Ricky Bingham MD - Primary * Salina Rausch MD - Fellow ANESTHESIOLOGIST Anesthesiologist: Odin Mckeon MD PRESSING DEPARTMENT SUPERVISOR: Yrn Cavanaugh APRN-PRESSING DEPARTMENT SUPERVISOR SURGICAL STAFF Laser Beam Machine Operator: Astrid Knowles RN Relief Laser Beam Machine Operator: Byron Salcedo RN Relief Scrub: Josefina Blair Scrub Person: Awa Montesinos RN Resident Assisting: Taylor Burns MD; Renetta Pérez MD COMPLICATIONS None ESTIMATED BLOOD LOSS 30 ml SPECIMENS As below ID Type Source Tests Collected by Time Destination 1 : right partial glossectiomy-stitch=anterior Permanent SURG PATH SURG PATH REQUEST Ricky Bingham MD 07/12/2022 0751 2 : anterior re-resection #1 Permanent SURG PATH SURG PATH REQUEST Ricky Bingham MD 07/12/2022 0751 3 : anterior re-resection #2 Frozen SURG PATH SURG PATH REQUEST Ricky Bingham MD 07/12/2022 0752 4 : superior re-resection Frozen SURG PATH SURG PATH REQUEST Ricky Bingham MD 07/12/2022 0752 5 : posterior re-resection Frozen SURG PATH SURG PATH REQUEST Ricky Bingham MD 07/12/2022 0753 6 : inferior re-resection Laura SURG PATH SURG PATH REQUEST Ricky Bingham MD 07/12/2022 0753 7 : deep re-resection Frozen SURG PATH SURG PATH REQUEST Ricky Bingham MD 07/12/2022 0753 8 : right level 1 neck dissection Permanent SURG PATH SURG PATH REQUEST Ricky Bingham MD 07/12/2022 0844 9 : right level 2 neck dissection Permanent SURG PATH SURG PATH REQUEST Ricky Bingham MD 07/12/2022 0922 10 : right level 3 & 4 neck dissection Permanent SURG PATH SURG PATH REQUEST Ricky Bingham MD07/12/2022 0922 Taylor Burns MD July 12, 2022 10:33 AM [facility]* Nursing Notes - Karen Hong RN - 07/14/2022 12:24 PM EDT 1224: Aruna Alvarado Re: Phuong lee 2111 pt dobhoff is clogged fyi, trying to get in unclogged butso far unsuccessful. going to try clog zapper, will keep you updated. may have to place a new tube.thanks Karen Gray 1329: aruna Alvarado Re: Phuong lee 2111 pt has dirrhea which she said is common for her after taking stool softeners. she is requesting something to slow diarrhea down. thanks Karen Gray 1830: aruna Alvarado Re: Phuong lee 2111 pt accidentally pulled out dobhoff. will need replaced toresume tube feeds and give any meds. thanks Karen Gray [facility]10-01-2022 Note* Plan of Care - Nina Beck RD - 07/13/2022 9:10 AM EDT Nutrition Recommendations and Plan of Care: 1. Recommend TF: Jevity 1.5 @ 240mL/h 5x/daily via DHT - Goal rate will provide 1200 mL, 1800 kcal (36 kcal/kg), 77 g PRO (1.5 g pro/kg), and 912 mL free water. - Pt would require additional free water flushes 140 mL 5x/daily to meet basic hydration requirement. Recommend minimum 30 mL x 4/day to maintain tube patency. 2. Advance diet as medically appropriate per primary team 3. Monitor TF intake, bowel function, skin integrity, weight change, lab values. 4. RD to follow up [facility] Hospital Discharge instructions* Discharge Instructions* KENNETH Parikh - 07/12/2022 3:10 PM EDT Images from the original note were not included. Evening and Weekend Contacts If you have questions or concerns during evening, weekend, or holiday hours, please call: -[facility] and [facility] waterworks operator at [phone]. Ask the waterworks operator to page the on-call doctor for Ear, Nose and Throat, the service that was responsible for your care while you were in the hospital. If you having an emergency, call 911. Medical Issues: For clinical questions or medical concerns during regular business hours, please call [phone] and you will be routed to your physician's team. For discharge planning questions/concerns, please contact: KENNETH Tapia, CARMELO-WILLIE (Patient Care Speedometer Inspector) [phone] ANISHA Rocha, CARMELO (Patient Care Speedometer Inspector) [phone] KENNETH Davenport (Cassandra Consultant) [phone] Your Parts Clerk Plant Maintenance (PCRM) has arranged your appointments for follow up based on your preference of where you would like to continue your care. If you are unable to attend appointments that have been arranged for you, it is your responsibilityto call to reschedule at least 48 hours prior to the appointment date. Your After Visit Summary (AVS) has provided you with instructions for your discharge. It is your responsibility to ask questions if you have any. Please contact your medical care team at the numbers listed if you should have any additional questions. IMPORTANT: Automated Post Discharge Call Patient Information As part of your care, we will call you at the primary number we have on file, the day after you aredischarged at 10 a.m. to check on you. Please expect a two- minute automated telephone call from [facility]. This call will come from [phone]. If you are unable to answer or do not receive the automated call, please call [phone] to complete this important evaluation. By answering the phone evaluation, a [facility] nurse will be notified if you have any questions or concerns and call you back. If you have an immediate medical need call your doctor s office, or if you have a medical emergencycall 911. * Discharge Instr - Activity* KENNETH Parikh - 07/12/2022 3:08 PM EDT Activity: Please follow these instructions: You may perform the following activities: - Exercise as you are able. - Take rest periods during the day as needed. - Get 8 to 10 hours of sleep at night. - You may shower, unless you have specifically been told NOT to shower. Let the soapy water run offof skin and wounds. Gently pat dry. Do not scrub wounds at all. Do not do the following: - java j2ee software engineer such as vacuuming, or heavy cleaning - Strenuous physical sports or exercise - Lift, pull or move objects greater than 5 pounds until your follow up appointment and/or cleared by physician. - High impact actvities such as jumping jacks or running - No driving for 10 days or as instructed. Bathing: Bathing Restrictions: You may shower. Do not allow the stream of water to flow directly on your incision. Pat dry when done. DO NOT TAKE A BATH UNTIL CLEARED BY YOUR PHYSICIAN. * Discharge Instr - Diet* KENNETH Parikh - 07/12/2022 3:09 PM EDT Diet: Your doctor has recommended that you follow these diet instructions at home. Refer to the patient education materials you received during your hospital stay. If you would like more nutrition counseling, ask your doctor about making an appointment with an outpatient dietitian. Dsyphagia Advanced Diet with thin liquids Diet to ease swallowing problems. All foods should be moist and in bite-sized pieces. Raw fruits and vegetables and breads are to be avoided. * Discharge Instr - Notify* Fide Rosales RN - 07/12/2022 3:09 PM EDT Notify Your Doctor or Nurse if you have any of the following: Bleeding or bruising If you have bleeding, apply pressure to the site and hold the pressure firmly for 5 minutes. If thebleeding continues, apply pressure again and call 911. If the bleeding stopped, call your doctor toreport it. Call your doctor or nurse right away if you have increased bleeding from your site and increased bruising or a lump forms or gets larger under your skin at the site. Respiratory Changes Call your doctor or nurse if you have shortness of breath Unrelieved Pain Call your doctor or nurse if your pain gets worse or is not eased 1 hour after taking your pain medicine. Wound Infection Symptoms Call your doctor or nurse right away if you have signs of infection at you wound such as: -More pain around the wound -Change in the amount , color and odor of drainage -The skin around the wound feels warm or has red streaks -The wound separates or opens up -You have a temperature greater than 101 * Discharge Instr - Wound Care* KENNETH Parikh - 07/12/2022 3:10 PM EDT Wound Care: Your surgical incision has been closed with Dermabond Prineo, which is a combination of mesh and liquid adhesive that allows the incision or wound be held together during the healing process. It willremain in place until your doctor has determined that adequate healing has occurred, usually anywhere from 7 to 14 days, and will be removed at your post operative appointment. You may shower. No swimming, tub baths or hot tubs until your incision is completely healed. Do not soak or scrub your incision, but briefly wet your incision in the shower. After your shower, gently blot your incision or wound dry with a soft towel. If a dry protective dressing is being used over Dermabond Prineo, it should be replaced with a fresh, dry protective dressing after showering as directed. Care should be taken so that any tape that may be part of the dry protective dressing does not comein contact with the Dermabond Prineo because when the tape is removed, it may also remove the Dermabond Prineo. Do not apply topical ointments, liquids, lotions, etc. as they can loosen Prineo from the skin prior to adequate wound healing. Do not engage in strenuous exercise that may cause additional stress on your incision or wound. Prior to removal, do not scratch, rub or pick at the mesh. This may loosen the adhesive and mesh before the skin is healed. Your physician will carefully peel off the Dermabond Prineo at your follow up appointment. Notify your physician if your experience any redness, swelling, discomfort, warmth or pus. Skin Graft Site Please apply Eucerin cream (or equivalent) to your skin graft donor site on your thigh. It is ok toget this wet. A dressing is not needed. Please keep the area open to air. [facility]* Nursing Notes - Barbara Young RN - 07/12/2022 2:52 PM EDT Ms. Dumont is admitted to 2110 from PACU at this time and her skin is WDL except for oral and neckincisions and wound drains. Barbara Young RN 07/12/2022 [facility] Note* Plan of Care - Taylor Burns MD - 07/12/2022 10:40 AM EDT EJ/PARAS Astrid Dumont POD# 0 Surgeon: Zachery Diagnosis: R posterolateral tongue SCC Procedure: R partial glossectomy, R SND levels I-V, STSG PLAN Airway (trach/stomavent): [place] Diet: NPO with tube feeds until follow up with [facility] in 1 week --> may have sips of water/ice chips when bolster taken down POD5 Drains: 2 right neck RWR Sutures/cody: Dermabond prineo, STSG site (puracol/tegederm), intraoral bolster down POD5 Antibiotics: Unasyn while bolster in x 5 days Consults: PRN PT/OT/DIESEL ROLLER OPERATOR: PRN Anticoagulation: lovenox, ASA 81 (home meds) Labs (TSH/free T4/Ca): routine Pertinent PMH/Red flags/needs: Pre-operative examination for internal medicine - 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 Hyperlipidemia, unspecified hyperlipidemia type Type 2 diabetes mellitus without complication, without long-term current use of insulin History of palpitations Hypothyroidism, unspecified type Gastroesophageal reflux disease, unspecified whether esophagitis present Inflammatory arthritis Obesity (BMI 30-39.9) Follow ups: [facility] 1 week for eval, possible remove NG Dispo: Anticipate dispo on POD#5 to home with tube feeds [facility] Work Phone: 1(405) 846-428409-30-2022 Note* Brief Op Note - Taylor Burns MD - 07/12/2022 10:33 AM EDT Astrid Dumont ([id number]) PRE OPERATIVE DIAGNOSIS 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 [C02.3] POST OPERATIVE DIAGNOSIS Post-Op Diagnosis Codes: * 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 [C02.3] PROCEDURE PERFORMED Procedure(s) (LRB): GLOSSECTOMY LESS THAN 1/2 TONGUE (Right) GRAFT SKIN SPLIT THICKNESS EAR EYELID FACE MOUTH ORBIT (STSG) (N/A) LYMPHADENECTOMY CERVICAL (MODIFIED RADICAL NECK DISSECTION) (Right) PRIMARY CLOSURE Yes INTRAOPERATIVE FINDINGS No significant abnormalities SURGEON Surgeon(s) and Role: * Ricky Bingham MD - Primary * Salina Rausch MD - Fellow ANESTHESIOLOGIST Anesthesiologist: Odin Mckeon MD PRESSING DEPARTMENT SUPERVISOR: Yrn Cavanaugh APRN-PRESSING DEPARTMENT SUPERVISOR SURGICAL STAFF Laser Beam Machine Operator: Astrid Knowles RN Relief Laser Beam Machine Operator: Byron Salcedo RN Relief Scrub: Josefina Blair Scrub Person: Awa Montesinos RN Resident Assisting: Taylor Burns MD; Renetta Pérez MD COMPLICATIONS None ESTIMATED BLOOD LOSS 30 ml SPECIMENS As below ID Type Source Tests Collected by Time Destination 1 : right partial glossectiomy-stitch=anterior Permanent SURG PATH SURG PATH REQUEST Ricky Bingham MD 07/12/2022750 2 : anterior re-resection #1 Permanent SURG PATH SURG PATH REQUEST Ricky Bingham MD 07/12/2022750 3 : anterior re-resection #2 Frozen SURG PATH SURG PATH REQUEST Ricky Bingham MD 07/12/2022751 4 : superior re-resection Frozen SURG PATH SURG PATH REQUEST Ricky Bingham MD 07/12/2022751 5 : posterior re-resection Frozen SURG PATH SURG PATH REQUEST Ricky Bingham MD 07/12/2022752 6 : inferior re-resection Frozen SURG PATH SURG PATH REQUEST Ricky Bingham MD 07/12/2022752 7 : deep re-resection Frozen SURG PATH SURG PATH REQUEST Ricky Bingham MD 07/12/2022752 8 : right level 1 neck dissection Permanent SURG PATH SURG PATH REQUEST Ricky Bingham MD 07/12/2022 0844 9 : right level 2 neck dissection Permanent SURG PATH SURG PATH REQUEST Ricky Bingham MD 07/12/2022 09 10 : right level 3 & 4 neck dissection Permanent SURG PATH SURG PATH REQUEST Ricky Bingham MD07/12/2022921 Taylor Burns MD July 12, 2022 10:33 AM [facility] History and physical note* Yrn Nelson MD - 07/12/2022 6:11 AM EDT HPI Astrid Dumont is a 67 y.o. with history of Malignant neoplasm of anterior two- thirds of tongue [C02.3] There has been no change in medical history since last visit. Past Medical History She has a past medical history of Arthritis, Diabetes mellitus, and Squamous cell carcinoma, keratinizing. Past Surgical History She has a past surgical history that includes lithotripsy; knee replacement (Right); knee replacement (Left); and rotator cuff repair. Medications She has a current medication list which includes the following prescription(s): allopurinol, atenolol, calcium carbonate, cetirizine, cholecalciferol, eluxadoline, empagliflozin, escitalopram, hydrochlorothiazide, hydroxychloroquine, levothyroxine sodium, magnesium oxide, melatonin, metformin, multiple vitamins-minerals, potassium citrate, aspirin, atorvastatin, and clotrimazole, and the following Facility-Administered Medications: acetaminophen OR acetaminophen OR acetaminophen, Ampicillin-Sulbactam Sodium (UNASYN) 3 g in sodium chloride 0.9% (MB PLUS) 100 mL (total volume) IVPB, heparin, lactated ringers. Allergies She is allergic to *seasonal and sulfa antibiotics. Social History She reports that she has never smoked. She has never used smokeless tobacco. She reports that she does not drink alcohol and does not use drugs. Review of Systems Constitutional: No fevers Skin: Negative for rash Endocrine: No heat/cold intolerance Cardiovascular: Negative for chest pain or dyspnea on exertion Respiratory: Negative for shortness of breath or wheezing Gastrointestinal: No constipation, nausea or vomiting Genitourinary: Negative for new lower urinary tract symptoms, current gross hematuria or dysuria. Musculoskeletal: No flank pain Neurological: Negative for frequent headaches or dizziness Lymph/Heme: Negative for leg swelling or calf pain. Physical Exam BP (!) 130/7 (BP Location: Right arm, BP Position: Lying) Pulse 59 Temp 98.2 F (36.8 C) (Oral) Resp 13 Ht 1.626 m (5' 4 ) Wt 86.8 kg (191 lb 6.4 oz) SpO2 97% BMI 32.85 kg/m Smoking Status Never Smoker Constitutional: Alert, comfortable. HEENT: Conjunctivae normal. Moist mucous membranes. Cardiovascular: Regular rate. Pulmonary/Chest: Respirations are even and non-labored bilaterally. Abdominal: Soft. No distension, tenderness, masses or guarding. Neurological: Alert and oriented. Moving all extremities. Extremities: JEAN x 4, Warm. Skin: [place], warm and dry. Psychiatric: Normal mood and affect Labs Lab Results Component Value Date SODIUM 140 07/03/2022 POTASSIUM 4.2 07/03/2022 CHLORIDE 100 07/03/2022 CO2 33 (H) 07/03/2022 BUN 18 07/03/2022 CREATSERUM 0.85 07/03/2022 GLUCOSE 144 (H) 07/12/2022 Lab Results Component Value Date WBC 4.58 07/03/2022 HGB 13.7 07/03/2022 HCT 42.9 07/03/2022 PLATELET 203 07/03/2022 MCV 91.1 07/03/2022 No results found for: PSA Lab Results Component Value Date CREATSERUM 0.85 07/03/2022 Assessment Astrid Dumont is a 67 y.o. 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 To OR for Procedure(s): GLOSSECTOMY LESS THAN 1/2 TONGUE GRAFT SKIN SPLIT THICKNESS EAR EYELID FACE MOUTH ORBIT (STSG) LYMPHADENECTOMY CERVICAL (MODIFIED RADICAL NECK DISSECTION) Yrn Nelson MD Otolaryngology-Head and Neck Surgery, PGY-3 *7118 [facility] History and physical note* Yrn Nelson MD - 07/12/2022 6:11 AM EDT HPI Astrid Dumont is a 67 y.o. with history of Malignant neoplasm of anterior two- thirds of tongue [C02.3] There has been no change in medical history since last visit. Past Medical History She has a past medical history of Arthritis, Diabetes mellitus, and Squamous cell carcinoma, keratinizing. Past Surgical History She has a past surgical history that includes lithotripsy; knee replacement (Right); knee replacement (Left); and rotator cuff repair. Medications She has a current medication list which includes the following prescription(s): allopurinol, atenolol, calcium carbonate, cetirizine, cholecalciferol, eluxadoline, empagliflozin, escitalopram, hydrochlorothiazide, hydroxychloroquine, levothyroxine sodium, magnesium oxide, melatonin, metformin, multiple vitamins-minerals, potassium citrate, aspirin, atorvastatin, and clotrimazole, and the following Facility-Administered Medications: acetaminophen OR acetaminophen OR acetaminophen, Ampicillin-Sulbactam Sodium (UNASYN) 3 g in sodium chloride 0.9% (MB PLUS) 100 mL (total volume) IVPB, heparin, lactated ringers. Allergies She is allergic to *seasonal and sulfa antibiotics. Social History She reports that she has never smoked. She has never used smokeless tobacco. She reports that she does not drink alcohol and does not use drugs. Review of Systems Constitutional: No fevers Skin: Negative for rash Endocrine: No heat/cold intolerance Cardiovascular: Negative for chest pain or dyspnea on exertion Respiratory: Negative for shortness of breath or wheezing Gastrointestinal: No constipation, nausea or vomiting Genitourinary: Negative for new lower urinary tract symptoms, current gross hematuria or dysuria. Musculoskeletal: No flank pain Neurological: Negative for frequent headaches or dizziness Lymph/Heme: Negative for leg swelling or calf pain. Physical Exam BP (!) 130/7 (BP Location: Right arm, BP Position: Lying) Pulse 59 Temp 98.2 F (36.8 C) (Oral) Resp 13 Ht 1.626 m (5' 4 ) Wt 86.8 kg (191 lb 6.4 oz) SpO2 97% BMI 32.85 kg/m Smoking Status Never Smoker Constitutional: Alert, comfortable. HEENT: Conjunctivae normal. Moist mucous membranes. Cardiovascular: Regular rate. Pulmonary/Chest: Respirations are even and non-labored bilaterally. Abdominal: Soft. No distension, tenderness, masses or guarding. Neurological: Alert and oriented. Moving all extremities. Extremities: JEAN x 4, Warm. Skin: [place], warm and dry. Psychiatric: Normal mood and affect Labs Lab Results Component Value Date SODIUM 140 07/03/2022 POTASSIUM 4.2 07/03/2022 CHLORIDE 100 07/03/2022 CO2 33 (H) 07/03/2022 BUN 18 07/03/2022 CREATSERUM 0.85 07/03/2022 GLUCOSE 144 (H) 07/12/2022 Lab Results Component Value Date WBC 4.58 07/03/2022 HGB 13.7 07/03/2022 HCT 42.9 07/03/2022 PLATELET 203 07/03/2022 MCV 91.1 07/03/2022 No results found for: PSA Lab Results Component Value Date CREATSERUM 0.85 07/03/2022 Assessment Astrid Dumont is a 67 y.o. 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 To OR for Procedure(s): GLOSSECTOMY LESS THAN 1/2 TONGUE GRAFT SKIN SPLIT THICKNESS EAR EYELID FACE MOUTH ORBIT (STSG) LYMPHADENECTOMY CERVICAL (MODIFIED RADICAL NECK DISSECTION) Yrn Nelson MD Otolaryngology-Head and Neck Surgery, PGY-3 *[id number] [facility] Nurse Surgical operation note* Nkechi Asif RN - 07/12/2022 5:27 AM EDT Pt denies history of chemo and radiation. Pt has metal or foreign objects in body. Denies history of seizures. [facility] Note* Nkechi Asif RN - 07/12/2022 5:27 AM EDT Pt denies history of chemo and radiation. Pt has metal or foreign objects in body. Denies history of seizures. [facility] History and physical note* Julia Rae MD - 07/03/2022 9:15 AM EDT Images from the original note were not included. History of Present Illness Ms. Dumont is a 67 y.o. female being evaluated in [facility] due to her medical condition(s) , which increases her risk for perioperative complications. Patient has a history of hyperlipidemia, palpitations, DM, GERD, hypothyroidism and inflammatory arthritis. She is accompanied to her OPAC appointment by her daughter. Name: Astrid Dumont Date of Surgery: 07/12/2022 Surgeon: Dr. 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 rate 18, height 1.626 m (5' 4 ), weight 87.5 kg (193 lb), SpO2 96 %. ANESTHESIA/AIRWAY Anesthesia alerts --PONV(Premedication helpful). VIKAS risk. Obesity. Personal history of problems related to anesthesia (ex.Malignant Hyperthermia): no, PONV(premedication with IV meds and scopolamine helpful) Family History of problems related to anesthesia (ex.Malignant Hyperthermia: no Daughter with PONV Pacer/AICD: no Glaucoma: no Beta Maikel: yes Diabetic Mellitus: yes VIKAS: no STOP-BANG Risk Assessment (3 or more YES responses is high risk) Do you snore - Yes Are you frequently tired during the day? - No Have you been observed gasping or choking while asleep? - No Do you have high blood pressure? - Yes Age more than 50? - Yes Gender male? - No Neck circumference greater than 40 cm? - No Neck Circumference (cm): 36 BMI more then 35? - No Body mass index is 33.13 kg/m . Mallampati class - 3 TM Distance - 3 FB Oral Opening - 3 FB Teeth - normal dentition for age Cervical range of motion - minimally limited Neck circumference - Neck Circumference (cm): 36 Allergies and adverse drug reactions Allergies Allergen Reactions *Seasonal Sulfa Antibiotics Does pt meet criteria for liberalized NPO? no. If no, why? ASA 3 or more Anesthesia/Airway A/P - Other than PONV, patient denies problems with anesthesia in the past. CARDIOVASCULAR History: 1. Hyperlipidemia, treated with statin. Chart documents hx of hypertension. Patient denies hx of hypertension. She states she was placed onAtenolol many years ago when she was bothered by palpitations. Hydrochlorothiazide was started due to her hx of kidney stones. Denies being treated for hypertension. BP Readings from Last 3 Encounters: 07/03/22 125/66 07/03/22 118/74 06/13/22 129/61 2. Hx of palpitations in past, treated with beta maikel. She is asymptomatic at this time. Patient denies chest pain, palpitations, dyspnea, pedal edema, dizziness. Denies history of CAD/PA, CHF, arrhythmia, CVA. She does not see a Oxygen Therapist and has not been diagnosed with heart disease. She has not needed any recent cardiac testing. Functional status---Moderate. She babysits her one year old grandchild. She does her own housekeeping chores/shopping. She denies chest pain and dyspnea. Cardiac testing: ECG(07/03/2022): NSR at 60 bpm. Normal OH interval, normal axis. Cardiovascular A/P - 1. Hyperlipidemia, with no known vascular diseas. 2. Hx of palpitations; currently asymptomatic This patient is in a low risk category as calculated using the RCRI/NSQIP with 0 risk factors. Functional status is adequate. According to the RCRI, this individual's risk for perioperative major adverse cardiac events is at an acceptable level. Plan: No additional cardiac testing/evaluation needed. PULMONARY Denies history of asthma, COPD and lung disease. She denies recent fever, chills, URI/flu symptoms, cough, dyspnea and wheezing. Social History Tobacco Use Smoking Status Never Smoker Smokeless Tobacco Never Used No vaping. Pulmonary A/P - No acute pulmonary issues. SUBSTANCE ABUSE Social History Substance and Sexual Activity Alcohol Use Never Social History Substance and Sexual Activity Drug Use Never Substance Abuse A/P - No substance use issues. CLOTTING/BLEEDING History of DVT/PE - no Are you a Jehovah Witness? - no In case of surgeons plan or unforseen emergency, are you okay with receiving blood products? - yes Clotting Bleeding A/P - No known clotting/bleeding disorders. Recommend standard DVT/PE prophylaxis postoperatively. ENDOCRINE 1. History of type 2 diabetes mellitus for 8-10 years. DM is managed by PCP. She is treated with Metformin and Empagliflozin. Home accuchecks: [place] ~150 Diabetes A/P - Controlled 2. Hypothyroidism.. No recent change in dose of Levothyroxine. Labs: Stable thyroid function on present dose of Levothyroxine. ADDITIONAL DIAGNOSES OF CONCERN 1. 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 She is planning partial glossectomy with Dr. Bingham. 2. Inflammatory arthritis, treated/currently well controlled with Hydroxychloroquine. 3. Hx of kidney stones, treated with Allopurinol and Hydrochlorothiazide. Last kidney stone episode was ~2 years ago. Denies history of seizures, GERD, liver disease, MEDICATIONS Current Outpatient Medications Medication Sig allopurinol 300 MG tablet Take 100 mg by mouth daily every morning. aspirin 81 MG Chew Tab chewable tablet Chew 81 mg daily every morning. atenolol 50 MG tablet Take 25 mg by mouth daily every morning. atorvastatin 10 MG tablet Take 10 mg by mouth at bedtime. Calcium Carbonate (CALCIUM 500 PO) Take 1,000 mg by mouth daily every morning. cetirizine 10 MG tablet Take 10 mg by mouth every evening at 6 PM. cholecalciferol 50 MCG (2000 UT) capsule Take 2,000 Units by mouth daily every morning. Eluxadoline 100 MG tablet Take 100 mg by mouth as needed. Empagliflozin 10 MG tablet Take 25 mg by mouth daily every morning. escitalopram 5 MG tablet Take 10 mg by mouth daily every morning. hydroCHLOROthiazide 25 MG tablet Take 25 mg by mouth daily every morning. hydroxychloroquine 200 MG tablet Take 200 mg by mouth 2 times daily. Levothyroxine Sodium (LEVOTHYROXINE PO) Take 75 mcg by mouth at bedtime. Magnesium Oxide (MAG-OX 400 PO) Take 400 mg by mouth 2 times daily. Melatonin 5 MG capsule Take 5 mg by mouth as needed. metFORMIN 500 MG tablet Take 500 mg by mouth 2 times daily with meals. Multiple Vitamins-Minerals (WOMENS 50+ MULTI VITAMIN/MIN PO) Take 1 tablet by mouth daily every morning. clotrimazole 10 MG Dayday DISSOLVE 1 IN THE MOUTH 5 TIMES DAILY UNTIL GONE (Patient not taking: Reported on 07/03/2022) Potassium Citrate 15 MEQ (1620 MG) Tab CR 1 Medication A/P - Instructions for preoperative medications given to the patient in AVS. LABS Orders Placed This Encounter CBC, EDIF, PLATELET CHEM 6 (LYTES, BUN CREA) CBC AND ELECTRONIC DIFF Type and Cross -Preadmission Calcium Carbonate (CALCIUM 500 PO) Multiple Vitamins-Minerals (WOMENS 50+ MULTI VITAMIN/MIN PO) Melatonin 5 MG capsule OH ECG, CLINIC PERFORMED Pulse Ox Labs ordered/reviewed. Chem 6 and CBC in acceptable range for planned surgery. T&S reviewed. Anesthesia/Medical Assessment/plan: Reviewed patient's history, assessment & ECG findings. Optimized. Julia Rae MD [facility] [place] [id number] [facility] Review of Systems (OSUROS) Review of Systems Constitutional: Negative for chills, fatigue and fever. HENT: Negative for congestion, nosebleeds, rhinorrhea, sinus pressure, sinus pain and sneezing. Respiratory: Negative for cough, chest tightness, shortness of breath and wheezing. Cardiovascular: Negative for chest pain, palpitations and leg swelling. Gastrointestinal: Negative for abdominal pain, diarrhea and vomiting. Genitourinary: Negative for difficulty urinating, dysuria and frequency. Musculoskeletal: Negative for arthralgias, back pain and neck pain. Skin: Negative for rash. Neurological: Negative for dizziness, seizures and headaches. Hematological: Does not bruise/bleed easily. Physical Examination (PHYSEXAM) Blood pressure 118/74, pulse 68, temperature 97.6 F (36.4 C), resp. rate 18, height 1.626 m (5' 4 ), weight 87.5 kg (193 lb), SpO2 96 %. Physical Exam Vitals reviewed. Constitutional: Appearance: She is well-developed. She is obese. Comments: Very pleasant lady, NAD. HENT: Head: Normocephalic. Right Ear: External ear normal. Left Ear: External ear normal. Mouth/Throat: Mouth: Mucous membranes are moist. Pharynx: Oropharynx is clear. Neck: Comments: Minimally limited neck rotation. Cardiovascular: Rate and Rhythm: Normal rate and regular rhythm. Pulses: Normal pulses. Heart sounds: Normal heart sounds. No murmur heard. Pulmonary: Effort: Pulmonary effort is normal. No respiratory distress. Breath sounds: Normal breath sounds. No wheezing or rales. Abdominal: General: Bowel sounds are normal. Palpations: Abdomen is soft. Tenderness: There is no abdominal tenderness. Comments: Obese abdomen Musculoskeletal: Cervical back: Neck supple. Right lower leg: No edema. Left lower leg: No edema. Lymphadenopathy: Cervical: No cervical adenopathy. Skin: General: Skin is warm and dry. Neurological: Mental Status: She is alert and oriented to person, place, and time. Psychiatric: Judgment: Judgment normal. Patient Active Problem List Diagnosis Obesity (BMI 30.0-34.9) Past Medical History: Diagnosis Date Arthritis Diabetes mellitus Squamous cell carcinoma, keratinizing Past Surgical History: Procedure Laterality Date KNEE REPLACEMENT Right KNEE REPLACEMENT Left LITHOTRIPSY ROTATOR CUFF REPAIR Patient Care Team: Duong Durham MD as PCP - General (Family Medicine) Dr Myles Gupta as Referring Provider (Dentistry) No family history on file. Social History Socioeconomic History Marital status: Tobacco Use Smoking status: Never Smoker Smokeless tobacco: Never Used Substance and Sexual Activity Alcohol use: Never Drug use: Never [facility] History and physical note* Julia Rae MD - 07/03/2022 9:15 AM EDT Images from the original note were not included. History of Present Illness Ms. Dumont is a 67 y.o. female being evaluated in OPAC due to her medical condition(s) , which increases her risk for perioperative complications. Patient has a history of hyperlipidemia, palpitations, DM, GERD, hypothyroidism and inflammatory arthritis. She is accompanied to her OPAC appointment by her daughter. Name: Astrid Dumont Date of Surgery: 07/12/2022 Surgeon: Dr. 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 rate 18, height 1.626 m (5' 4 ), weight 87.5 kg (193 lb), SpO2 96 %. ANESTHESIA/AIRWAY Anesthesia alerts --PONV(Premedication helpful). VIKAS risk. Obesity. Personal history of problems related to anesthesia (ex.Malignant Hyperthermia): no, PONV(premedication with IV meds and scopolamine helpful) Family History of problems related to anesthesia (ex.Malignant Hyperthermia: no Daughter with PONV Pacer/AICD: no Glaucoma: no Beta Maikel: yes Diabetic Mellitus: yes VIKAS: no STOP-BANG Risk Assessment (3 or more YES responses is high risk) Do you snore - Yes Are you frequently tired during the day? - No Have you been observed gasping or choking while asleep? - No Do you have high blood pressure? - Yes Age more than 50? - Yes Gender male? - No Neck circumference greater than 40 cm? - No Neck Circumference (cm): 36 BMI more then 35? - No Body mass index is 33.13 kg/m . Mallampati class - 3 TM Distance - 3 FB Oral Opening - 3 FB Teeth - normal dentition for age Cervical range of motion - minimally limited Neck circumference - Neck Circumference (cm): 36 Allergies and adverse drug reactions Allergies Allergen Reactions *Seasonal Sulfa Antibiotics Does pt meet criteria for liberalized NPO? no. If no, why? ASA 3 or more Anesthesia/Airway A/P - Other than PONV, patient denies problems with anesthesia in the past. CARDIOVASCULAR History: 1. Hyperlipidemia, treated with statin. Chart documents hx of hypertension. Patient denies hx of hypertension. She states she was placed onAtenolol many years ago when she was bothered by palpitations. Hydrochlorothiazide was started due to her hx of kidney stones. Denies being treated for hypertension. BP Readings from Last 3 Encounters: 07/03/22 125/66 07/03/22 118/74 06/13/22 129/61 2. Hx of palpitations in past, treated with beta maikel. She is asymptomatic at this time. Patient denies chest pain, palpitations, dyspnea, pedal edema, dizziness. Denies history of CAD/PA, CHF, arrhythmia, CVA. She does not see a Oxygen Therapist and has not been diagnosed with heart disease. She has not needed any recent cardiac testing. Functional status---Moderate. She babysits her one year old grandchild. She does her own housekeeping chores/shopping. She denies chest pain and dyspnea. Cardiac testing: ECG(07/03/2022): NSR at 60 bpm. Normal OH interval, normal axis. Cardiovascular A/P - 1. Hyperlipidemia, with no known vascular diseas. 2. Hx of palpitations; currently asymptomatic This patient is in a low risk category as calculated using the RCRI/NSQIP with 0 risk factors. Functional status is adequate. According to the RCRI, this individual's risk for perioperative major adverse cardiac events is at an acceptable level. Plan: No additional cardiac testing/evaluation needed. PULMONARY Denies history of asthma, COPD and lung disease. She denies recent fever, chills, URI/flu symptoms, cough, dyspnea and wheezing. Social History Tobacco Use Smoking Status Never Smoker Smokeless Tobacco Never Used No vaping. Pulmonary A/P - No acute pulmonary issues. SUBSTANCE ABUSE Social History Substance and Sexual Activity Alcohol Use Never Social History Substance and Sexual Activity Drug Use Never Substance Abuse A/P - No substance use issues. CLOTTING/BLEEDING History of DVT/PE - no Are you a Jehovah Witness? - no In case of surgeons plan or unforseen emergency, are you okay with receiving blood products? - yes Clotting Bleeding A/P - No known clotting/bleeding disorders. Recommend standard DVT/PE prophylaxis postoperatively. ENDOCRINE 1. History of type 2 diabetes mellitus for 8-10 years. DM is managed by PCP. She is treated with Metformin and Empagliflozin. Home accuchecks: [place] ~150 Diabetes A/P - Controlled 2. Hypothyroidism.. No recent change in dose of Levothyroxine. Labs: Stable thyroid function on present dose of Levothyroxine. ADDITIONAL DIAGNOSES OF CONCERN 1. 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 She is planning partial glossectomy with Dr. Bingham. 2. Inflammatory arthritis, treated/currently well controlled with Hydroxychloroquine. 3. Hx of kidney stones, treated with Allopurinol and Hydrochlorothiazide. Last kidney stone episode was ~2 years ago. Denies history of seizures, GERD, liver disease, MEDICATIONS Current Outpatient Medications Medication Sig allopurinol 300 MG tablet Take 100 mg by mouth daily every morning. aspirin 81 MG Chew Tab chewable tablet Chew 81 mg daily every morning. atenolol 50 MG tablet Take 25 mg by mouth daily every morning. atorvastatin 10 MG tablet Take 10 mg by mouth at bedtime. Calcium Carbonate (CALCIUM 500 PO) Take 1,000 mg by mouth daily every morning. cetirizine 10 MG tablet Take 10 mg by mouth every evening at 6 PM. cholecalciferol 50 MCG (2000 UT) capsule Take 2,000 Units by mouth daily every morning. Eluxadoline 100 MG tablet Take 100 mg by mouth as needed. Empagliflozin 10 MG tablet Take 25 mg by mouth daily every morning. escitalopram 5 MG tablet Take 10 mg by mouth daily every morning. hydroCHLOROthiazide 25 MG tablet Take 25 mg by mouth daily every morning. hydroxychloroquine 200 MG tablet Take 200 mg by mouth 2 times daily. Levothyroxine Sodium (LEVOTHYROXINE PO) Take 75 mcg by mouth at bedtime. Magnesium Oxide (MAG-OX 400 PO) Take 400 mg by mouth 2 times daily. Melatonin 5 MG capsule Take 5 mg by mouth as needed. metFORMIN 500 MG tablet Take 500 mg by mouth 2 times daily with meals. Multiple Vitamins-Minerals (WOMENS 50+ MULTI VITAMIN/MIN PO) Take 1 tablet by mouth daily every morning. clotrimazole 10 MG Dayday DISSOLVE 1 IN THE MOUTH 5 TIMES DAILY UNTIL GONE (Patient not taking: Reported on 07/03/2022) Potassium Citrate 15 MEQ (1620 MG) Tab CR 1 Medication A/P - Instructions for preoperative medications given to the patient in AVS. LABS Orders Placed This Encounter CBC, EDIF, PLATELET CHEM 6 (LYTES, BUN CREA) CBC AND ELECTRONIC DIFF Type and Cross -Preadmission Calcium Carbonate (CALCIUM 500 PO) Multiple Vitamins-Minerals (WOMENS 50+ MULTI VITAMIN/MIN PO) Melatonin 5 MG capsule OH ECG, CLINIC PERFORMED Pulse Ox Labs ordered/reviewed. Chem 6 and CBC in acceptable range for planned surgery. T&S reviewed. Anesthesia/Medical Assessment/plan: Reviewed patient's history, assessment & ECG findings. Optimized. Julia Rae MD [facility] [address] [facility] Review of Systems (OSUROS) Review of Systems Constitutional: Negative for chills, fatigue and fever. HENT: Negative for congestion, nosebleeds, rhinorrhea, sinus pressure, sinus pain and sneezing. Respiratory: Negative for cough, chest tightness, shortness of breath and wheezing. Cardiovascular: Negative for chest pain, palpitations and leg swelling. Gastrointestinal: Negative for abdominal pain, diarrhea and vomiting. Genitourinary: Negative for difficulty urinating, dysuria and frequency. Musculoskeletal: Negative for arthralgias, back pain and neck pain. Skin: Negative for rash. Neurological: Negative for dizziness, seizures and headaches. Hematological: Does not bruise/bleed easily. Physical Examination (PHYSEXAM) Blood pressure 118/74, pulse 68, temperature 97.6 F (36.4 C), resp. rate 18, height 1.626 m (5' 4 ), weight 87.5 kg (193 lb), SpO2 96 %. Physical Exam Vitals reviewed. Constitutional: Appearance: She is well-developed. She is obese. Comments: Very pleasant lady, NAD. HENT: Head: Normocephalic. Right Ear: External ear normal. Left Ear: External ear normal. Mouth/Throat: Mouth: Mucous membranes are moist. Pharynx: Oropharynx is clear. Neck: Comments: Minimally limited neck rotation. Cardiovascular: Rate and Rhythm: Normal rate and regular rhythm. Pulses: Normal pulses. Heart sounds: Normal heart sounds. No murmur heard. Pulmonary: Effort: Pulmonary effort is normal. No respiratory distress. Breath sounds: Normal breath sounds. No wheezing or rales. Abdominal: General: Bowel sounds are normal. Palpations: Abdomen is soft. Tenderness: There is no abdominal tenderness. Comments: Obese abdomen Musculoskeletal: Cervical back: Neck supple. Right lower leg: No edema. Left lower leg: No edema. Lymphadenopathy: Cervical: No cervical adenopathy. Skin: General: Skin is warm and dry. Neurological: Mental Status: She is alert and oriented to person, place, and time. Psychiatric: Judgment: Judgment normal. Patient Active Problem List Diagnosis Obesity (BMI 30.0-34.9) Past Medical History: Diagnosis Date Arthritis Diabetes mellitus Squamous cell carcinoma, keratinizing Past Surgical History: Procedure Laterality Date KNEE REPLACEMENT Right KNEE REPLACEMENT Left LITHOTRIPSY ROTATOR CUFF REPAIR Patient Care Team: Duong Durham MD as PCP - General (Family Medicine) Dr Myles Gupta as Referring Provider (Dentistry) No family history on file. Social History Socioeconomic History Marital status: Tobacco Use Smoking status: Never Smoker Smokeless tobacco: Never Used Substance and Sexual Activity Alcohol use: Never Drug use: Never [facility] Instructions* Patient Instructions* Cici Crockett LPN - 07/03/2022 9:15 AM EDT Patient Medication Instructions: - Take Allopurinol, Atenolol, Escitalopram and Hydroxychloroquine the morning of surgery with a sipof water. - Do not take any other medications on the morning of surgery. - STOP taking Metformin 24 hours prior to surgery. - STOP taking Empagliflozin(Jardiance) 3 days before surgery. - STOP taking Aspirin 7 days before surgery. - STOP taking the Multivitamin TODAY. - Do NOT take Herbal Medication (including fish oil ([place]-3), garlic, Glucosamine - Chondroitin ,gingko, ginseng, Vitamin E) 2 weeks before surgery. - Do NOT take Aspirin, Excedrin, Ibuprofen, Advil, Voltaren(Diclofenac), Motrin, Naproxen, or Alevefor the 7-14 days before surgery. You may take Acetaminophen(Tylenol) if needed the week prior to surgery. Type 2 Diabetes - Medicines before Tests or Surgery Diabetes medicines may need to be stopped or changed before a test or surgery. Talk to your doctor who helps you manage your diabetes to find out how you should change your diabetes medicines, or follow these guidelines. Be sure to follow your doctor s directions if they are different than the guidelines on this handout. You will have less chance of infection or other problems if your blood sugar is in the normal rangebefore your test or surgery. If you are not sure how to adjust your diabetes medicine, be sure to call your doctor or nurse to check before your test or surgery date. If you are on a clear liquid diet the day before your test or surgery, call your doctor to check ifyou need to make other changes to your medicine doses. Check your blood sugar the morning of your test or surgery. If it is above 250 or less than 110, call your doctor for more instructions. High or low blood sugars may result in a delay or cancellationof your test or surgery that day. Be sure to tell your nurse that you have diabetes when you arrive at the test area or at pre-operative holding. Oral Medication (pills) If you take Jardiance (empagliflozin), HOLD 3 DAYS PRIOR TO SURGERY If you take Metformin, hold your dose the evening before and the morning of surgery. Talk to your doctor or others on your health care team if you have questions. You may request more written information from the [employer] for [employer] Information at or email: [email or web address]. Patient Pre-Operative Instructions: Diet Instructions: -NO food or drink after 11PM the night before surgery except for enough water to take your medications. (No Candy, Mints and/or Gum) - Do NOT wear any hearing aids, jewelry, watches, rings, hairpieces, makeup, glasses or contact lenses with you into your surgery. - Shower the night before or the morning of surgery. - Do NOT shave, or pluck hair from anywhere near the surgical site one week prior to surgery. - [place] your teeth and rinse your mouth the morning of surgery. - Do NOT bring your dentures or partials with you into surgery. They may be lost. Give them to someone to bring to you after surgery. If you become ill, develop a fever, cough, or any type of infection within 14 days of your scheduled surgery, please call the surgeon's office. You may need to have your surgery moved, as we would not want to put you at risk for complications due to an illness. If you are placed on Antibiotics within 1 week of surgery, please notify our team immediately. - If you have Sleep apnea and have a CPAP or BIPAP, then bring your CPAP mask and machine with you to the hospital. Patient identified as being at high risk for sleep apnea. Patient education material for obstructive sleep apnea given and reviewed. AVS/BLS documented in this encounterCity [facility]09-[facility]22 History of Present illness Narrative* Heather Sánchez PA-C - 06/13/2022 1:00 PM EDT Images from the original note were not included. Chief Complaint: SCCa Right Postero-Lateral Tongue HPI: 67 yo F, never smoker referred by Dr. Reeves for surgical evaluation of newly diagnosed SCCa right lateral tongue. Patient reports that this lesion has been present since . She has previously had other biopsies of right lateral anterior tongue that were reportedly benign. She had follow up with her dentist who referred her to Dr. Reeves who performed biopsies that showed SCCa of the tongue and focally mild to moderate dysplasia of the tongue. Patient reports that she has some irritation along the back of her tongue, but no significant pain or bleeding. No neck mass, no dysphagia. Nursing documentation has been reviewed. Past Medical History Past Medical History: Diagnosis Date Arthritis Diabetes mellitus Squamous cell carcinoma, keratinizing Past Surgical History Past Surgical History: Procedure Laterality Date KNEE REPLACEMENT Right KNEE REPLACEMENT Left LITHOTRIPSY ROTATOR CUFF REPAIR Social History Social History Socioeconomic History Marital status: Spouse name: Not on file Number of children: Not on file Years of education: Not on file Highest education level: Not on file Occupational History Not on file Tobacco Use Smoking status: Not on file Smokeless tobacco: Not on file Substance and Sexual Activity Alcohol use: Not on file Drug use: Not on file Sexual activity: Not on file Other Topics Concern Not on file Social History Narrative Not on file Social Determinants of Health Financial Resource Strain: Not on file Food Insecurity: Not on file Transportation Needs: Not on file Physical Activity: Not on file Stress: Not on file Social Connections: Not on file Intimate Partner Violence: Not on file Housing Stability: Not on file Family History No family history on file. Medications: No current outpatient medications on file. No current facility-administered medications for this visit. Allergies: *seasonal and Sulfa antibiotics Immunizations: There is no immunization history on file for this patient. Review of Systems: Constitutional: Negative for fever, weight loss and weight gain. HENT: Negative for ear pain, sore throat and hoarseness. Negative for difficulty swallowing. Cardiovascular: Negative for chest pain and dyspnea on exertion (Can climb up 2 floors). Respiratory: Is not experiencing shortness of breath. Gastrointestinal: Negative for nausea and vomiting. Neurological: Negative for headaches. Psychiatric: The patient is not nervous/anxious. Musculoskeletal: Denies muscle pain/weakness Heme/Lymph: Negative for lymph nodes, easy bruising Physical Exam Vital Signs: BP 129/61 Pulse 67 Temp 97.5 F (36.4 C) (Temporal) Resp 20 Ht 1.626 m (5' 4 ) Wt 88.1 kg (194 lb 4.8 oz) SpO2 95% BMI 33.35 kg/m General: Well-developed, well-nourished. No distress. Communication and Voice: Clear pitch and clarity Respiratory Respiratory effort: Equal inspiration and expiration without stridor Cardiovascular Heart: regular rate and rhythm Peripheral Vascular: Warm extremities with equal pulses Neuro: Patient oriented to person, place, and time; Appropriate mood and affect; Gait is intact with no imbalance; Cranial nerves II-XII are intact Head and Face Inspection: Normocephalic and atraumatic without mass or lesion Palpation: Facial skeleton intact without bony stepoffs Facial Strength: Facial motility symmetric and full bilaterally Eyes: PERRLA. No nystagmus with normal extraocular motion bilaterally ENT Pinna: External ear intact and fully developed External canal: Canal is patent with intact skin Tympanic Membrane: Clear and mobile External nose: No scar or anatomic deformity Internal Nose: Septum intact and midline. No edema, polyp, or rhinorrhea. TMJ: No pain to palpation with full mobility Salivary Glands: No mass or tenderness Lips: No lesion. Oral cavity: A few scattered areas of leukoplakic change along the right elsie- lateral tongue witha separate smaller slightly ulcerative lesion along the right postero-lateral tongue. Oropharynx: No mass or lesion. Tonsillar fossa symmetric. Base of tongue soft without mass or induration. Nasopharynx: Hypopharynx: Larynx: See scope note below Neck Trachea: Midline trachea. Thyroid: No mass or nodularity. Lymphatics: No lymphadenopathy. INSURANCE CODER scope performed today Data Reviewed: No imaging has been performed at this time Pathologic Diagnosis Outside Slides [id number] (06/03/22) B. Right lateral tongue, incisional biopsy: Invasive squamous cell carcinoma. Impression/Plan: 67 yo F, never smoker with a newly diagnosed SCCa of the right lateral tongue. Discussed surgical management of her disease at this time. Patient wants to proceed with surgery at this time. 1. CT neck and chest 2. OPAC and pre-op 3. Review at 4. Schedule surgery right partial glossectomy/primary closure versus STSG/possible right neck dissection * Ricky Bingham MD - 06/13/2022 1:00 PM EDT Procedure: Flexible fiberoptic nasopharyngoscopy/laryngoscopy: Indications: Need for detailed exam, hyperactive gag reflex, inadequate mirror visualization. Surgeon: Ricky Bingham MD Procedure note: After informed discussion of the risks, benefits, and alternatives fiberoptic nasopharyngoscopy and laryngoscopy was recommended for above indications, and the patient consented to this. Nasal cavities were topically anesthetized and decongested with 4% lidocaine solution mixed with Afrin. Flexible laryngoscopy was performed. The nasopharynx, oropharynx, larynx, and hypopharynx were examined. Findings: No lesions were identified in the nasopharynx, oropharynx, larynx, or hypopharynx. Attending Physician Note I independently interviewed, examined and formulated the medical decision making. Details of my interview, examination findings, and medical decision- making confirmed the findings above. I have personally amended the below documentation where appropriate. I saw this patient with Heather Sánchez and huseyin rsonally wrote the impression and plan. Impression/Plan: T1 N0 Mx SCC Right lateral tongue Recommended right partial glossectomy w/skin graft Discussed management of N0 neck assuming CT is clean, including sentinel node biopsy, elective neckdissection, observation. All options are reasonable given the size of this lesion. Pt wishes to have selective neck dissection, will proceed in near future. Discussed the rare possibility of needing a tracheotomy but will avoid if possible. Discussed need for temporary DHT and bolster placement. documented in this encounterCity Hospital09-01-2022 Instructions* Patient Instructions* Mushtaq Young RN - 06/13/2022 1:00 PM EDT Images from the original note were not included. Welcome to the Head and Neck Oncology Clinic. We are here to assist you through your care at the [facility] and [facility]. Dr. Ricky Bingham is your Head and Neck Surgical Oncology doctor. It is likely that you will have other cancer doctors to assist with your care. Heather Sánchez PA-C our physician assistant reading teacher who works with Dr. Bingham, will often see you post operatively, as well as alternate visits with Dr. Bingham throughout your care for follow ups. Dr. Bingham's Primary Nurse is Mushtaq Young RN. She can be reached at [phone], and can get in touch quickly with Dr. Bingham and Heather. If not in the office when you call, please contact [phone] and leave a message for the nursing pool. Any scheduling issues will be addressed by the scheduling department at [phone]. Here are the resources/team members available to you at The [facility]: Speech and Language Pathologists (DIESEL ROLLER OPERATOR)- may be asked by Dr. Bingham to assist you with swallowing and speaking issues. They may see you during visits with Dr. Bingham and in the hospital. If you are havingchemotherapy or radiation therapy, they are a vitally important part of the team. We strongly recommend that you work with this team and do the exercises all the way through post-op and additional treatment, in order to have the best possible outcome for your swallowing function. Our DIESEL ROLLER OPERATOR's and contact phone numbers are below: Jayda Block [phone] Caitlin Sow [phone] Dulce Masterson [phone] Scarlet Desir [phone] Awa Villarreal [phone] Araceli [phone] Jack [phone] Cassandra Consultant- SHIRLEY Lin and SHIRLEY Maloney are available to assist with transportation and housing issues related to medical appointments. The social science professor also provides counselingand information regarding Advance Directives, End of Life issues, Social Security Disability, and referrals to support groups, and other community agencies. Please let Mauricio or Dr Bingham know if you need these services. You may contact Yesenia at [phone] or [place] [phone]. [facility] This is for patients who live in [facility] with a cancer diagnosis. The [facility] can provide rides to appointments, nutritional supplements and other services. It requires that your register for services by speaking with our head and neck social workers. If you are outside of [facility] the social science professor can assist you with what is available in your county. Financial Services-Mu Jarquin and Deedee Olmstead are our financial counselors who can assist your at your appointments or call them at [phone]. Power Reactor Operator-Currently an order must be placed by Dr. Bingham to have to see the Power Reactor Operator, Arianne Lawor Lia Walters. If you are already seeing Arianne or Lia Mark their direct phone number is [phone]. A Pain Management Clinic Team is available if Dr. Bingham feels that you need this a referral is made and your pain care is transferred to this group. Dr. Bingham will prescribe pain medication for patients who have surgery by him for a maximum of 6 weeks after surgery. After that time frame we will assist you to get a referral to a pain clinic, unless you are being cared for by a medical oncologist orradiation oncologist, in which case, these doctors will manage your symptoms through chemotherapy and radiation if this applies to your treatment. If you need refills on narcotic pain medication, they must be picked up at our office. We need 48 hours to get the prescription signed by a doctor. Narcotic (pain medications) cannot be called into the pharmacy. Additionally, if you require the liquid form of your narcotic pain medication, this mayneed to be ordered by your pharmacy. If you are from a smaller city, you may want to fill your prescription before you leave [place]. We are committed to providing you quality healthcare, however we need you to take part in your care. You have personal responsibility in your care. It is important that you play an active role in your care by quitting drinking alcohol and smoking cigarettes, to have the optimal outcome. Dr. Bingham has discussed this with you. In order to care for you in the best possible way it is very important that you have a relationshipwith a primary care doctor. If you do not have one please establish care with one in your area or at [facility] at [phone] to make an appointment. Family Medical Leave paperwork is available through your human resources department. Please call human resources and have them fax paperwork to Mushtaq Young RN [phone]. Please allow 2 weeks for completion of FMLA paperwork. Pastoral Care-is able to assist you with your spiritual needs. If you wish to see the coal tower operator, please let your oncology team know so that they can arrange this. Financial Services- financial counselor at can be reached at [phone]. Integrative Medicine Therapy -these are complementary therapies used in addition to your cancer treatment to assist with anxiety, pain, nausea, poor sleep, and exhaustion. If you wish this additional therapy please contact [email or web address] to set up an appointment. Youmay also request this in the same way if you are inpatient or ask your nurse. THERE IS NO COST FOR THIS SERVICE. Fertility Presevation and Reproductive Health-[facility] offers fertility preservation. This requires a referral from your doctor. If you are interested in sperm banking, egg freezing or other optionsplease let your doctor know before you have chemotherapy or radiation. For information options please call [phone]. [facility] - It is conveniently located on the [facility] campus on the conference level (CL) of the [facility] and [facility],next door to [facility] and near [facility]. To learn more about [facility], you can visit it on weekdays from 8 a.m. - 9 p.m. and on weekends from 9 a.m. - 6 p.m. [facility]- is a communication tool used through the Internet to communicate NON-urgent medical information with your [facility] doctors. You may ask questions, receive results and get notification of appointments. The results will be released to the [facility] by your doctors and will only be results that do not need additional explanation. If a discussion of the result is important your doctor or nurse will call you. If you wish to sign up this must be done in person. Our switchboard receptionist staff can assist you to get a password that can be changed when after you log on the first time. IMPORTANT REMINDER: This portal is only for NON-urgent information. If you have urgent information about your condition please call ANISHA Martínez at [phone]. THERE IS A NEW Mobi-Moto ARMANDO FOR SMART PHONES. USE YOUR ARMANDO STORE AND SEARCH Mobi-Moto, download the armando and follow the prompts to set up the [facility] format. Through this ARMANDO, you will be able to look at results, send messages and much more. Additionally, you are ableto send pictures to providers. If you need to be in a patient in the hospital or having surgery: IF YOU ARE HAVING SURGERY DISCUSSED WITH DR. BINGHAM THAT WILL REQUIRE YOU TO HAVE A TRACHEOSTOMY OR TOTAL LARYNGECTOMY (YOUR VOICEBOX REMOVED) PLEASE BRING YOUR PREFERRED WRITING METHOD WITH YOU. Some prefer a pen and paper, and others like a dry erase board or tablet. If you are on diabetic pill form treatment, in the hospital you will have your blood sugar checked regularly and likely will be on insulin instead of the pills. Plan discussed with Dr. Bingham: Scans Tumor board Free Flap Reconstruction Surgery A free flap is a piece of skin, tissue and/or bone that is moved from one area of the body to another. The free flap is used to rebuild the area where your surgery was done. There are many places on your body where the doctor may take the free flap. Here are the common areas where a flap may be removed. Types of Free Flaps The type of free flap that will be used for your surgery is checked below. Some types of free flaps need a skin graft. To do a skin graft, the doctor will take skin from another part of your body (usually the upper leg) to cover the area where the free flap was removed. Your doctor will tell you if this needs to be done. ? Radial Forearm Free Flap Your doctor will take the skin and fat layer along with blood vessels from your lower arm. You willalso have skin taken from your upper leg to cover the area on your lower arm where the free flap was removed. When you wake up from surgery, you will have a splint on your arm and a dressing on your leg. ? Fibular Free Flap Your doctor will take tissue and a small piece from your lower leg bone (fibula) for your reconstructive surgery. Taking out this bone and tissue does not affect your ability to walk or move. ? Lateral Thigh Free Flap This type of free flap is used when a large amount of tissue is needed. Your doctor will take tissue and blood vessels from the side of the upper leg (thigh) for your reconstructive surgery. ? Scapular Free Flap This type of free flap may be done when another area cannot be used. Your doctor will take an area of bone, tissue and blood vessels from your shoulder blade for your reconstructive surgery. You may need physical therapy after this surgery. Your doctor will order this therapy if it is needed. Other possible areas where your doctor may take tissue, bone and blood vessels to make a free flap include: ? Iliac Crest Free Flap (hip) ? Rectus Abdominia (stomach) ? Lateral Arm (upper arm) ? Latisimus Dorsi (back) Smoking ? Smoking may cause problems with blood circulation and healing. It is very important that you do not smoke for 2 weeks before surgery and for 1 week after your surgery. ? You should not use a nicotine patch or nicotine gum because they can cause decrease blood flow tothe area where you will have your surgery. ? The [facility] has resources available to help you quit smoking. What should I expect after free flap surgery? ? You will be in the hospital so your doctor can keep a close watch on the areas where you had surgery. ? A special machine called a Doppler will be used to check and make sure the surgery area(s) are healthy. ? Some free flap sites need a drain (small tube with bulb on the end) to be placed during surgery. This allows drainage from the site to help with healing. You doctor will decide when the drain can be removed. ? You may need to take pain medicine after surgery. These drugs may slow the movement of your bowels. Your doctor may have ou take a stool softener or other medicines to help your bowels move. ? You will have a scar. All cuts made through the skin leave a scar, but most fade with time. Before You Leave the Hospital ? You will be given instructions about how to take care of the areas where you had surgery. ? You will have a follow up appointment scheduled with your doctor. Your free flap will be checked at this appointment. When to Call Your Doctor Call your doctor if you have any of the following: ? Fever above 100.5 degrees F ? Bleeding or drainage that has increased or changed ? Foul smelling drainage ? Increased pain or pain not helped by medicine ? Talk to your doctor or others on your health care team if you have questions. You may request more written information from the [employer] Information at or email: [email or web address]. Neck Dissection What is a Neck Dissection? A neck dissection is a surgery that may be done to: Remove a neck cancer Find out the stage of a cancer Remove a cancer that has spread (metastasis) to other areas of the Neck Types of Neck Dissections Selective Neck Dissection is a surgery done to remove some lymph nodes. This type of surgery saves nerves, muscles, blood vessels and some lymph nodes. Modified Neck Dissection is a surgery done to remove all lymph nodes in the neck. This type of surgery saves some nerves, muscles and blood vessels. Radical Neck Dissection is a surgery done to remove lymph nodes, nerves, blood vessels and muscles. This surgery may be done on one or both sides of the neck. What should I expect after a neck dissection? After your surgery, you may have the following: Pain at the site of your surgery Swelling in your neck Drains in your neck (your doctor will decide at your follow-up visit when these can be removed) Temporary or permanent change in how your neck, shoulder or scalp feel Temporary or permanent weakness in the arm on the side of the surgery Changes in the way your neck looks on the side of the surgery Swelling in your face (the amount and length of time this may last depends on the number of lymph nodes that were removed) _ Talk to your doctor or others on your health care team if you have questions. You may request more written information from the [employer] Information at or email: [email or web address]. Shoulder Exercise after a Neck Dissection After a neck dissection, there can be weakness of the spinal accessory nerve. This nerve controls the shoulder muscle needed to lift the arm out to the side of the body. This muscle is used for activities such as getting dressed and lifting things over your head. It is important to do exercises with your arm to keep the muscle from getting small and not working well. Here is an exercise you may do when your doctor tells you it is okay to start exercising. Side Wall Crawls Stand sideways to a wall. Make sure you keep your shoulders square with the wall. Walk your fingers up the wall until you feel a pull. Hold for 5 seconds. Slide your hand down the wall. Step closer to the wall to increase the stretch. Do this exercise 5 times, 5 times a day. Tracheostomy Tubes What is a tracheostomy? A tracheostomy is a small hole made through the front of your neck into your windpipe (trachea). The hole is called a stoma. A tracheostomy (trach) tube is a small curved tube that fits into the stoma to keep the hole from closing. Why do I need a trach? There are many reasons why a person may need a trach. Some of these include: To allow passage of oxygen. To remove mucus from your lungs. To be put on a breathing machine if you are unable to breathe on your own. To open your airway if your windpipe is blocked. After surgery of the mouth, upper airway or neck to decrease swelling. Swelling is more common with surgery to these areas. What are the parts of a trach tube? There are many kinds of trach tubes. You have a tube. It is a metal / plastic ([place] one) trach tube that has the following parts if marked: _ Outer Cannula: The outer cannula is placed in the stoma to keep the hole from closing. _ Inner Cannula: The inner cannula fits into the outer tube, like a liner. You can remove the inner cannula for changing or cleaning. Cleaning is done at least 1 to 2 times each day. _ Obturator: The obturator is only used when putting the outer cannula into the stoma. _ Cuff: The cuff is a balloon around the outer cannula. It is inflated by putting air through the cuff inflation tube. The cuff may be inflated if you are on a breathing machine (ventilator) or if you are having a problem with choking. Important note: Your tracheostomy tube may not have a cuff. _ Cuff Inflation Tube with Iron Piler Balloon: The air is inserted through this tube when you inflate the cuff. The commercial helicopter pilot balloon inflates when the cuff inside is inflated. _ Talk to your doctor or health care team if you have any questions. You may request more written information from the [employer] Information at or email: [email or web address]. Nasogastric (NG) Tube A nasogastric tube (NG tube) is a long plastic, clear or red tube placed by a nurse. It is put in through your nose or mouth and passes into the stomach. The NG tube has many uses, such as: Remove fluid and air from the stomach Give medicine or tube feedings Get a sample of stomach fluid for laboratory tests Remove blood if you are bleeding in your stomach The fluid that comes from your stomach through the NG tube can be different colors. The NG tube may cause a sore throat, and you also may feel like gagging. Your doctor or nurse will tell you if you will be able to eat or drink while you have the tube in place. Call for your nurse if: The NG tube leaks The tape on your nose that holds the tube in place becomes loose The NG tube comes out You have uncomfortable feelings of stomach fullness You have nausea You have sore throat or nose, painful eyes or sinuses PLEASE BRING YOUR PREFERRED WRITING METHOD WITH YOU. Some prefer a pen and paper and others like a dry erase board. 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, part unspecified [facility] Diagnosis Pre-operative examination for internal medicine- Primary Other specified pre-operative examination 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, part unspecified Hyperlipidemia, unspecified hyperlipidemia type Type 2 diabetes mellitus without complication, without long-term current use of insulin History of palpitations Hypothyroidism, unspecified type Gastroesophageal reflux disease, unspecified whether esophagitis present Inflammatory arthritis Unspecified inflammatory polyarthropathy Obesity (BMI 30-39.9) Obesity, unspecified 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, part unspecified [facility] Diagnosis 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, part unspecified Postoperative state Other postprocedural status [facility] Diagnosis Other postoperative complication of skin- Primary S/P partial glossectomy Other postprocedural status [facility] Diagnosis 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- 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, part unspecified [facility] Diagnosis 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- 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, part unspecified History of hemorrhage of tongue [facility] Diagnosis 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- 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, part unspecified [facility] Diagnosis 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- 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, part unspecified [facility]* Auth/Cert 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 [C02.3] Procedures OH PART REMOVAL TONGUE,<1/2 OH SPLIT GRFT,HEAD,FAC,HAND,FEET <100SQCM OH REMOVAL NODES, NECK,CERV MOD RAD GLOSSECTOMY LESS THAN 1/2 TONGUE GRAFT SKIN SPLIT THICKNESS EAR EYELID FACE MOUTH ORBIT (STSG) LYMPHADENECTOMY CERVICAL (MODIFIED RADICAL NECK DISSECTION) Ricky Bingham MD [address] [place] [address] [facility] [address] [place] [address] Referral ID Status Reason Start Date Expiration Date Visits Re quested Visits Authorized [id number] 1 1 [facility] Instruction Description Start Date Patient advised to follow-up with Primary Care Physician for BMI management. Advance Directives No Advanced Directives Records FoundLatest Code Status on File Code Status Date Activated Date Inactivated Comments Full Code 07/12/2022 2:36 PM Full Code 07/12/2022 5:45 AM 07/12/2022 2:36 PM Latest Code Status on File Code Status Date Activated Date Inactivated Comments Full Code 07/12/2022 2:36 PM Code Status History Code Status Date Activated Date Inactivated Comments Full Code 07/12/2022 5:45 AM 07/12/2022 2:36 PM Latest Code Status on File Code Status Date Activated Date Inactivated Comments Full Code 07/24/2022 5:01 PM Code Status History Code Status Date Activated Date Inactivated Comments Full Code 07/12/2022 2:36 PM 07/24/2022 5:01 PM Full Code 07/12/2022 5:45 AM 07/12/2022 2:36 PM Latest Code Status on File Code Status Date Activated Date Inactivated Comments Full Code 07/24/2022 5:01 PM Code Status History Code Status Date Activated Date Inactivated Comments Full Code 07/12/2022 2:36 PM 07/24/2022 5:01 PM Full Code 07/12/2022 5:45 AM 07/12/2022 2:36 PM Assessments There may be information available, but it has not been provided by the sender. Review of System There may be information available, but it has not been provided by the sender. 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 Heather Sánchez PA-C [address] [place] [address] Referral ID Status Reason Start Date Expiration Date V isits Requested Visits Authorized [id number] New Request 06/13/2022 07/08/2023 1 1 Specialty Diagnoses / Procedures Referred By Contac t Referred To Contact Diagnoses 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 Procedures CT CHEST WITH CONTRAST CHG DIAGNOSTIC COMPUTED TOMOGRAPHY THORAX W/CONTRAST Heather Sánchez, PA-C [address] [place] [address] Referral ID Status Reason Start Date Expiration Date V isits Requested Visits Authorized [id number] New Request 06/13/2022 07/08/2023 1 1 Specialty Diagnoses / Procedures Referred By Contac t Referred To Contact Diagnoses 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 Procedures CT NECK WITH CONTRAST [place] CT NECK TISSUE CONTRAST Heather Sánchez, PA-C [address] [place] [address] Referral ID Status Reason Start Date Expiration Date V isits Requested Visits Authorized [id number] New Request 06/13/2022 07/08/2023 1 1 Referral ID Status Reason Start Date Expiration Date V isits Requested Visits Authorized [id number] Pending Review 06/13/2022 07/08/2023 1 1 Specialty Diagnoses / Procedures Referred By Contac t Referred To Contact Procedures DIRECT ADMIT REQUEST Kailey Art, AUTOMATIC PATTERN EDGER-LPC [address] [facility] [address] [place] [address] Referral ID Status Reason Start Date Expiration Date V isits Requested Visits Authorized [id number] New Request 07/24/2022 08/18/2023 1 1 Specialty Diagnoses / Procedures Referred By Contac t Referred To Contact Diagnoses 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 Heather Sánchez, PA-C [address] [place] [address] Marlen Reeves, DDS [address] [place] [address] Referral ID Status Reason Start Date Expiration Date V isits Requested Visits Authorized [id number] Schedule Outgoing - Transfer of Care 11/20/2022 12/15/2023 1 1 Summary Purpose Additional Source Comments Reason for Visit (unrecogniz ed section and content) Specialty Diagnoses / Procedures Referred By Contac t Referred To Contact Diagnoses 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 Procedures CT CHEST WITH CONTRAST CHG DIAGNOSTIC COMPUTED TOMOGRAPHY THORAX W/CONTRAST Heather Sánchez PA-C [address] [place] [address] Referral ID Status Reason Start Date Expiration Date V isits Requested Visits Authorized [id number] Pending Review 06/13/2022 07/08/2023 1 1 Reason Comments Pre-operative Consultation Specialty Diagnoses / Procedures Referred By Contac t Referred To Contact PreOp Diagnoses 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 Heather Sánchez PA-C [address] [place] [address] Referral ID Status Reason Start Date Expiration Date V isits Requested Visits Authorized [id number] Pending Review 06/13/2022 07/08/2023 1 1 Reason Comments Post-Op Problem Specialty Diagnoses / Procedures Referred By Contac t Referred To Contact [facility] [address] [place] [address] [facility] [address] [place] [address] Referral ID Status Reason Start Date Expiration Date Visits Re quested Visits Authorized [id number] 1 1 Reason Comments Post Op Visit Reason Comments Follow-up Reason Comments Follow-up Care Teams (unrecognized sec tion and content) Blending Machine Feeder Relationship Specialty Start Date End Date Duong Durham MD [address] [facility] [address] [place] [phone] PCP - General Family Medicine 06/13/22 Dr Myles Gupta Referring Provider Dentistry 07/03/22 Blending Machine Feeder Relationship Specialty Start Date End Date Duong Durham MD [address] [place] [address] PCP - General Family Medicine 06/13/22 Dr Myles Gupta Referring Provider Dentistry 07/03/22 [employer]ending [employer] Fe[employer] Relationship Specialty Start Date End Date Duong Durham MD [address] [place] [address] PCP - General Family Medicine 06/13/22 Dr Myles Gupta Referring Provider Dentistry 07/03/22 [employer] Machine Feeder Relationship Specialty Start Date End Date Duong Durham MD [address] [place] [address] PCP - General Family Medicine 06/13/22 Dr Myles Gupta Referring Provider Dentistry 07/03/22 Blending Machine Feeder Relationship Specialty Start Date End Date Duong Durham MD [address] [place] [address] PCP - General Family Medicine 06/13/22 Dr Myles Gupta Referring Provider Dentistry 07/03/22 Blending Machine Feeder Relationship Specialty Start Date End Date Duong Durham MD [address] [place] [address] PCP - General Family Medicine 06/13/22 Dr Myles Gupta Referring Provider Dentistry 07/03/22 Blending Machine Feeder Relationship Specialty Start Date End Date Duong Durham MD [address] [place] [address] PCP - General Family Medicine 06/13/22 Dr Myles Gupta Referring Provider Dentistry 07/03/22 Blending Machine Feeder Relationship Specialty Start Date End Date Duong Durham MD [address] [place] [phone] PCP - General Family Medicine 06/13/22 Dr Myles Gupta Referring Provider Dentistry 07/03/22 Scheduled Active and Recently Administ ered Medications (unrecognized section and content) Continuous Medication Order 07/15/2022 07/16/2022 07/17/2022 lactated ringers IV solution (CANCELED) Intravenous, at 100 mL/hr, CONTINUOUS, Starting on Fri07/16/22 at 2015, Until Fri07/17/22 at 0614 2254 ($$New Bag$$ - Provider: Divya Jauregui RN)2254 (Rate/Dose Verify - Provider: Amanda Nichols RN) 0259 (Paused - Provider: Amanda Nichols RN)0329 (Rate/Dose Change - Provider: Amanda Nichols RN)0336 (Paused - Provider: Amanda Nichols RN)0338 (Restarted - Provider: Amanda Nichols RN)0730 (Rate/Dose Verify - Provider: Amanda Nichols RN) PRN Medication Order 07/15/2022 07/16/2022 07/17/2022 acetaminophen (TYLENOL) oral solution 650 mg(Linked Group 2) 650 mg, Per NG tube, EVERY 4 HOURS NEEDED, Starting on Fri07/12/22 at 1436, Until Fri07/17/22 at 1558, Mild Pain, Oral temp > 101.5 F, Maximum dose of acetaminophen is 4000 mg from all sources in 24 hours., Post-op/Post-Proc 0544 (Given - Provider: Giovana Saavedra RN)1528 (Given - Provider: Kailey Grant RN)2019 (Given - Provider: Divya Jauregui, ANISHA) acetaminophen (TYLENOL) suppository 650 mg(Linked Group 2) 650 mg, Rectal, EVERY 4 HOURS NEEDED, Starting on Fri07/12/22 at 1436, Until Fri07/17/22 at 1558, Oral temp > 101.5 F, Mild Pain, Maximum dose of acetaminophen is 4000 mg from all sources in 24 hours., Post-op/Post-Proc 0544 (See Alternative - Provider: Giovana Saavedra RN)1527 (See Alternative - Provider: Kailey Grant, RN)2018 (See Alternative - Provider: Divya Jauregui, RN) acetaminophen (TYLENOL) tablet 650 mg(Linked Group 2) 650 mg, Oral, EVERY 4 HOURS NEEDED, Starting on Fri07/12/22 at 1436, Until Fri07/17/22 at 1558, Mild Pain, Oral temp > 101.5 F, Maximum dose of acetaminophen is 4000 mg from all sources in 24 hours., Post-op/Post-Proc 543 (See Alternative - Provider: Giovana Saavedra RN)1527 (See Alternative - Provider: Kailey Grant, ANISHA)2018 (See Alternative - Provider: Divya Jauregui, RN) dextrose 50% injection 7.5-25 g(Linked Group 1) 7.5-25 g, Intravenous, ADMINISTER DIRECTED, Starting on Fri07/17/22 at 0741, Until Fri07/17/22 at 1558, Blood glucose <80 mg/dL, For patients who are not alert, are NPO, or are on IV insulin infusion administer as directed per Hypoglycemia in Non- Adults Clinical Practice Guideline. For Blood Glucose: 60-79 mg/dL administer 7.5 gm (15ml); 45-59 mg/dL administer 12.5 gm (25ml); less than 45mg/dL administer 25gm (50ml). ++Dextrose 50% injection is on national shortage. Consider juice, food, and glucose tablets per Clinical Practice Guidelines first if appropriate. If additional dextrose 50% needed, contact pharmacy or obtain from [facility] ++ docusate (COLACE) capsule 100 mg(Linked Group 3) 100 mg, Oral, EVERY 12 HOURS NEEDED, Starting on Fri07/14/22 at 1345, Until Fri07/17/22 at 1558, Constipation 1st Line, Hold for diarrhea or 2 stools in one day., Post-op/Post-Proc docusate (COLACE) oral liquid 100 mg(Linked Group 3) 100 mg, Per NG tube, 2 TIMES DAILY NEEDED, Starting on Fri07/14/22 at 1345, Until Fri07/17/22 at 1558, Constipation 1st Line, Hold for diarrhea or 2 stools in one day. , Post-op/Post-Proc glucose (GLUTOSE) 40 % oral gel 1-2 Tube(Linked Group 1) 1-2 Tube, Oral, ADMINISTER DIRECTED, Starting on Fri07/17/22 at 0741, Until Fri07/17/22 at 1558, Blood glucose <80 mg/dL, For patients who are alert, able to tolerate PO intake and with intact cognitive status administer as directed per Hypoglycemia in Non- Adults Clinical Practice Guideline. For Blood Glucose: 60-79 mg/dL administer 1 tube; 45-59 mg/dl administer 1.5 tubes; less than 45 mg/dL administer 2 tubes. Each tube of 37.5g delivers 15g of carbohydrate. ++ Consider juice or food per Clinical Practice Guideline first if appropriate. For Insta-Glucose product: Each tube of 31g delivers 24g of carbohydrate. Percent strength 77.4% represents glucose content, equal to ~40% dextrose content.++ hydrALAZINE (APRESOLINE) injection 10 mg 10 mg, Intravenous, EVERY 6 HOURS NEEDED, Starting on Fri07/12/22 at 1436, Until Fri07/17/22 at 1558, SBP > 160 mmHg with HR <60 bpm, Post-op/Post-Proc insulin lispro (HumaLOG) injection(Linked Group 1) Subcutaneous, NEEDED, Starting on Fri07/17/22 at 0741, Until Fri07/17/22 at 1558, Other, As needed for snacks, Correction Factor: not to be used with this order. Kwikpen: Prime pen before each injection; refer to Pen Priming and Care Handout for further details. Warning! Confirm patient. Insulin pen is for labeled individual patient use ONLY. labetalol (NORMODYNE) 10 mg in sodium chloride 0.9%, with overfill 62 mL (total volume) IVPB 10 mg, Intravenous, at 248 mL/hr, Administer over 15 Minutes, EVERY 6 HOURS NEEDED, Starting on Fri07/12/22 at 1436, Until Fri07/17/22 at 1558, SBP > 160 mmHg with HR >60 bpm, Hold for HR < 60 BPM., Post-op/Post-Proc loperamide (IMODIUM) capsule 2 mg 2 mg, Oral, EVERY 4 HOURS NEEDED, Starting on Fri07/14/22 at 1344, Until Fri07/17/22 at 1558, Diarrhea 1528 (Given - Provider: Kailey Grant RN)2129 (Given - Provider: Divya Jauregui, RN) 0914 (Given - Provider: Ethel Garcia, RN) 1103 (Given - Provider: Amanda Nichols, ANISHA) melatonin tablet 6 mg 6 mg, Oral, DAILY AT BEDTIME NEEDED, Starting on Fri07/12/22 at 1436, Until Fri07/17/22 at 1558, Insomnia, Post-op/Post-Proc 0028 (Given - Provider: Divya Jauregui RN) ondansetron (ZOFRAN) tablet 4 mg(Linked Group 4) 4 mg, Oral, EVERY 6 HOURS NEEDED, Starting on Fri07/12/22 at 1436, Until Fri07/17/22 at 1558, Nausea / Vomiting, 1st line, Post-op/Post-Proc ondansetron (ZOFRAN) tablet 4 mg(Linked Group 4) 4 mg, Per NG tube, EVERY 6 HOURS NEEDED, Starting on Fri07/12/22 at 1436, Until Fri07/17/22 at 1558, Nausea / Vomiting, 1st line, Post-op/Post-Proc ondansetron 4mg/2ml (ZOFRAN) injection 4 mg(Linked Group 4) 4 mg, Intravenous, EVERY 6 HOURS NEEDED, Starting on Fri07/12/22 at 1436, Until Fri07/17/22 at 1558, Nausea / Vomiting, 1st line, Post-op/Post-Proc oxyCODONE (ROXICODONE) oral solution 10 mg(Linked Group 5) 10 mg, Oral, EVERY 4 HOURS NEEDED, Starting on Fri07/12/22 at 1436, Until Fri07/17/22 at 1558, Moderate Pain, Higher dose may be administered if lower dose was previously documented as ineffective and did not result in adverse effects (RR<10, decrease in level of consciousness). Decrease back to lower dose if patient has adverse effects, or no PRN used in previous 12 hours., Post-op/Post-Proc 0309 (See Alternative - Provider: Divya Jauregui RN) oxyCODONE (ROXICODONE) oral solution 10 mg(Linked Group 5) 10 mg, Per NG tube, EVERY 4 HOURS NEEDED, Starting on Fri07/12/22 at 1436, Until Fri07/17/22 at 1558, Moderate Pain, Higher dose may be administered if lower dose was previously documented as ineffective and did not result in adverse effects (RR<10, decrease in level of consciousness). Decrease back to lower dose if patient has adverse effects, or no PRN used in previous 12 hours., Post-op/Post-Proc 0309 (See Alternative - Provider: Divya Jauregui RN) oxyCODONE (ROXICODONE) oral solution 5 mg(Linked Group 5) 5 mg, Oral, EVERY 4 HOURS NEEDED, Starting on Fri07/12/22 at 1436, Until Fri07/17/22 at 1558, Moderate Pain, Use as initial dose. Higher dose may be administered if lower dose was previously documented as ineffective and did not result in adverse effects (RR<10, decrease in level of consciousness)., Post-op/Post-Proc 0309 (See Alternative - Provider: Divya Jauregui RN) oxyCODONE (ROXICODONE) oral solution 5 mg(Linked Group 5) 5 mg, Per NG tube, EVERY 4 HOURS NEEDED, Starting on Fri07/12/22 at 1436, Until Fri07/17/22 at 1558, Moderate Pain, Use as initial dose. Higher dose may be administered if lower dose was previously documented as ineffective and did not result in adverse effects (RR<10, decrease in level of consciousness)., Post-op/Post-Proc 0309 (Given - Provider: Divya Jauregui RN) oxyCODONE (ROXICODONE) tablet 5 mg(Linked Group 5) 5 mg, Oral, EVERY 4 HOURS NEEDED, Starting on Fri07/12/22 at 1436, Until Fri07/17/22 at 1558, Moderate Pain, Use as initial dose. Higher dose may be administered if lower dose was previously documented as ineffective and did not result in adverse effects (RR<10, decrease in level of consciousness)., Post-op/Post-Proc 0309 (See Alternative - Provider: Divya Jauregui RN) oxyCODONE HCl (ROXICODONE) tablet 10 mg(Linked Group 5) 10 mg, Oral, EVERY 4 HOURS NEEDED, Starting on Fri07/12/22 at 1436, Until Fri07/17/22 at 1558, Moderate Pain, Higher dose may be administered if lower dose was previously documented as ineffective and did not result in adverse effects (RR<10, decrease in level of consciousness). Decrease back to lower dose if patient has adverse effects, or no PRN used in previous 12 hours., Post-op/Post-Proc 0309 (See Alternative - Provider: Divya Jauregui RN) polyethylene glycol (MIRALAX) packet 17 g(Linked Group 6) 17 g, Oral, DAILY NEEDED, Starting on Fri07/12/22 at 1436, Until Fri07/17/22 at 1558, Constipation If No Bowel Movement in 48 Hours, Post-op/Post-Proc polyethylene glycol (MIRALAX) packet 17 g(Linked Group 6) 17 g, Per NG tube, DAILY NEEDED, Starting on Fri07/12/22 at 1436, Until Fri07/17/22 at 1558, Constipation If No Bowel Movement in 48 Hours, Post-op/Post-Proc promethazine (PHENERGAN) injection 12.5 mg(Linked Group 7) 12.5 mg, Intravenous, EVERY 6 HOURS NEEDED, Starting on Fri07/12/22 at 1436, Until Fri07/17/22 at 1558, Nausea / Vomiting, Refractory Nausea Vomiting, 2nd line, Extravasation Risk. If given via IV route: dilute dose with 10mL normal saline and inject through a running IV or line over 5 minutes OR if no active IV or line is saline-dwelled dilute dose with 20mL normal saline and administer over 5 minutes. AVOID Intra-arterial administration; necrosis & gangrene have resulted. Hand, wrist or foot veins SHOULD BE AVOIDED., Post-op/Post-Proc Promethazine HCl (PHENERGAN) tablet 12.5 mg(Linked Group 7) 12.5 mg, Oral, EVERY 6 HOURS NEEDED, Starting on Fri07/12/22 at 1436, Until Fri07/17/22 at 1558, Nausea / Vomiting, 2nd line, Post-op/Post-Proc Promethazine HCl (PHENERGAN) tablet 12.5 mg(Linked Group 7) 12.5 mg, Per NG tube, EVERY 6 HOURS NEEDED, Starting on Fri07/12/22 at 1436, Until Fri07/17/22 at 1558, Nausea / Vomiting, 2nd line, Post-op/Post-Proc senna (SENOKOT) tablet 8.6 mg(Linked Group 8) 8.6 mg, Oral, EVERY 12 HOURS NEEDED, Starting on Fri07/14/22 at 1345, Until Fri07/17/22 at 1558, Constipation 1st Line, Post-op/Post-Proc senna (SENOKOT) tablet 8.6 mg(Linked Group 8) 8.6 mg, Per NG tube, EVERY 12 HOURS NEEDED, Starting on Fri07/14/22 at 1345, Until Fri07/17/22 at 1558, Constipation 1st Line, Post-op/Post-Proc sodium chloride 0.9% IV solution 250 mL Intravenous, at 20 mL/hr, NEEDED, Starting on Fri07/12/22 at 1436, Until Fri07/17/22 at 1558, Carrier Fluid - See Admin. Inst, 250mL 0.9NS to be used as carrier fluid for intermittent small volume or piggyback medication administration as needed. Infusion rate of the carrier fluid should be set at 20 mL/hr unless the rate as the intermittent medication is less than 20 mL/hr. For intermittent medications with a rate less than 20 mL/hr set the carrier fluid at that rate of the intermittent or piggy back medication., Post-op/Post-Proc 0610 ($$New Bag$$ - Provider: Giovana Saavedra RN)0917 (Rate/Dose Verify - Provider: Kailey Grant RN)1414 (Rate/Dose Verify - Provider: Kailey Grant RN)1444 (Rate/Dose Verify - Provider: Divya Jauregui RN)1534 (Paused - Provider: Divya Jauregui RN)1604 (Restarted - Provider: Divya Jauregui RN)1835 (Rate/Dose Verify - Provider: Kailey Grant RN)2019 (Paused - Provider: Divya Jauregui RN)2048 (Restarted - Provider: Divya Jauregui RN) 0024 (Stopped - Provider: Divya Jauregui RN)0026 ($$New Bag$$ - Provider: Divya Jauregui RN)0026 (Rate/Dose Verify - Provider: Divya Jauregui RN)0118 (Paused - Provider: Divya Jauregui RN)0119 (Restarted - Provider: Divya Jauregui RN)0309 (Paused - Provider: Divya Jauregui RN)0339 (Restarted - Provider: Divya Jauregui RN)0546 (Rate/Dose Verify - Provider: Divya Jauregui RN)0912 (Paused - Provider: Divya Jauregui RN)0942 (Restarted - Provider: Divya Jauregui RN)0946 (Paused - Provider: Divya Jauregui RN)0946 (Restarted - Provider: Divya Jauregui RN)0947 (Paused - Provider: Divya Jauregui RN)0947 (Restarted - Provider: Divya Jauregui RN)1346 (Rate/Dose Verify - Provider: Divya Jauregui RN)1407 (Rate/Dose Verify - Provider: Divya Jauregui RN)1409 (Paused - Provider: Divya Jauregui RN)1637 (Restarted - Provider: Divya Jauregui RN)1640 (Paused - Provider: Divya Jauregui RN)1640 (Paused - Provider: Divya Jauregui RN)1710 (Restarted - Provider: Divya Jauregui RN)1733 (Paused - Provider: Divya Jauregui RN)1736 (Restarted - Provider: Divya Jauregui RN)1739 (Paused - Provider: Divya Jauregui RN)1739 (Restarted - Provider: Divya Jauregui RN)1740 (Paused - Provider: Divya Jauregui RN)1741 (Restarted - Provider: Divya Jauregui RN)1741 (Stopped - Provider: Divya Jauregui RN)1741 (Stopped - Provider: Divya Jauregui RN)210 ($$New Bag$$ - Provider: Divya Jauregui RN)2105 (Rate/Dose Verify - Provider: Divya Jauregui RN)2106 (Paused - Provider: Divya Jauregui RN)2136 (Restarted - Provider: Divya Jauregui RN)2139 (Paused - Provider: Divya Jauregui RN)2139 (Restarted - Provider: Divya Jauregui RN)2224 (Paused - Provider: Divya Jauregui RN)2226 (Restarted - Provider: Divya Jauregui RN)2233 (Paused - Provider: Divya Jauregui RN)2234 (Restarted - Provider: Divya Jauregui RN)2242 (Paused - Provider: Divya Jauregui RN)224 (Restarted - Provider: Divya Jauregui RN)224 (Paused - Provider: Divya Jauregui RN)2248 (Restarted - Provider: Divya Jauregui RN)225 (Stopped - Provider: Divya Jauregui RN) Linked Groups Order Group 1: insulin lispro (HumaLOG) injectionJump to med Subcutaneous, 4 TIMES DAILY WITH MEALS & AT BEDTIME, First dose on Fri07/17/22 at 0800, Until Discontinued
Correction Factor: 151-175 = 1 unit; 176- 200 = 2 units; 201-225 = 3 units; 226-250 = 4 units; 251-275 = 5 units; 276-300 = 6 units; 301-325 = 7 units; 326-350 = 8 units; Kwikpen: Prime pen before each injection; refer to Pen Priming and Care Handout for further details. Warning! Confirm patient. Insulin pen is for labeled individual patient use ONLY.
And insulin lispro (HumaLOG) injectionJump to med Subcutaneous, NEEDED, Starting on Fri07/17/22 at 0741, Until Fri07/17/22 at 1558, Other, As needed for snacks
Correction Factor: not to be used with this order. Kwikpen: Prime pen before each injection; refer to Pen Priming and Care Handout for further details. Warning! Confirm patient. Insulin pen is for labeled individual patient use ONLY.
And BLOOD GLUCOSE (POC DEVICE) (CANCELED) Routine, 4 TIMES DAILY BEFORE MEALS & AT BEDTIME, First occurrence on Fri07/17/22 at 0745
If any Blood Glucose (POC) is greater than 300mg/dl, then repeat Blood Glucose (POC) in 2 hours. If the initial blood glucose was greater than 300mg/dl and if second blood glucose is greater than 200md/dl, then notify Ethnoarchaeology Professor. And BLOOD GLUCOSE (POC DEVICE) (CANCELED) Routine, DIRECTED, Starting on Fri07/17/22 at 0741, Until Specified
For all Blood Glucose LESS THAN 80 mg/dL, treat per Hypoglycemia in Non- Adults Clinical Practice Guideline (CPG) and recheck glucose 15 min after treatment. Repeat per CPG until glucose GREATER THAN 80 mg/dL. Once glucose IS GREATER THAN 80 mg/dL, recheck Blood Glucose every 1 hour x2, then resume as previously ordered. For Blood Glucose LESS THAN 80 mg/dL on admission OR LESS than 45 mg/dL at any time, obtain POC Blood Glucose every 4 hours for 6 occurrences AFTER treating per CPG. Obtain blood glucose for symptoms of hypoglycemia: sweating, shaking, fatigue, rapid pulse, slow thinking & dizziness. Notify physician w/results. Obtain blood glucose for symptoms of hyperglycemia: excessive thirst, blurred vision, excessive urination & tiredness. Notify physician w/results. If patient NPO, obtain POC Blood Glucose prior to administration of any insulin products. And COMMUNICATION ORDER FOR NURSING CARE: For Blood Glucose LESS THAN 80 mg/dl (CANCELED) Routine, CONTINUOUS, Starting on Fri07/17/22 at 0742, Until Specified
For Blood Glucose LESS THAN 80 mg/dl follow Hypoglycemia in Non- Adults Clinical Practice Guideline (CPG) And dextrose 50% injection 7.5-25 gJump to med 7.5-25 g, Intravenous, ADMINISTER DIRECTED, Starting on Fri07/17/22 at 0741, Until Fri07/17/22 at 1558, Blood glucose <80 mg/dL
For patients who are not alert, are NPO, or are on IV insulin infusion administer as directed per Hypoglycemia in Non- Adults Clinical Practice Guideline. For Blood Glucose: 60-79 mg/dL administer 7.5 gm (15ml); 45-59 mg/dL administer 12.5 gm (25ml); less than 45mg/dL administer 25gm (50ml). ++Dextrose 50% injection is on national shortage. Consider juice, food, and glucose tablets per Clinical Practice Guidelines first if appropriate. If additional dextrose 50% needed, contact pharmacy or obtain from [facility] ++
And glucose (GLUTOSE) 40 % oral gel 1-2 TubeJump to med 1-2 Tube, Oral, ADMINISTER DIRECTED, Starting on Fri07/17/22 at 0741, Until Fri07/17/22 at 1558, Blood glucose <80 mg/dL
For patients who are alert, able to tolerate PO intake and with intact cognitive status administer as directed per Hypoglycemia in Non- Adults Clinical Practice Guideline. For Blood Glucose: 60-79 mg/dL administer 1 tube; 45-59 mg/dl administer 1.5 tubes; less than 45 mg/dL administer 2 tubes. Each tube of 37.5g delivers 15g of carbohydrate. ++ Consider juice or food per Clinical Practice Guideline first if appropriate. For Insta-Glucose product: Each tube of 31g delivers 24g of carbohydrate. Percent strength 77.4% represents glucose content, equal to ~40% dextrose content.++
And NOTIFY PHYSICIAN, Blood Glucose LESS THAN 80 mg/dl (CANCELED) Routine, CONTINUOUS, Starting on Fri07/17/22 at 0742, Until Specified
Who to Notify: Ethnoarchaeology Professor
For all Blood Glucose LESS THAN 80 mg/dl, notify Ethnoarchaeology Professor after treatment per Hypoglycemia in Non- Adults Clinical Practice Guideline And Carbohydrate counts with meals (CANCELED) Routine, CONTINUOUS, Starting on Fri07/17/22 at 0742, Until Specified
Carbohydrate counts are to be done after each patient meal and with snack. Group 2: acetaminophen (TYLENOL) tablet 650 mgJump to med 650 mg, Oral, EVERY 4 HOURS NEEDED, Starting on Fri07/12/22 at 1436, Until Fri07/17/22 at 1558, Mild Pain, Oral temp > 101.5 F
Maximum dose of acetaminophen is 4000 mg from all sources in 24 hours.
Post-op/Post-Proc Or acetaminophen (TYLENOL) oral solution 650 mgJump to med 650 mg, Per NG tube, EVERY 4 HOURS NEEDED, Starting on Fri07/12/22 at 1436, Until Fri07/17/22 at 1558, Mild Pain, Oral temp > 101.5 F
Maximum dose of acetaminophen is 4000 mg from all sources in 24 hours.
Post-op/Post-Proc Or acetaminophen (TYLENOL) suppository 650 mgJump to med 650 mg, Rectal, EVERY 4 HOURS NEEDED, Starting on Fri07/12/22 at 1436, Until Fri07/17/22 at 1558, Oral temp > 101.5 F, Mild Pain
Maximum dose of acetaminophen is 4000 mg from all sources in 24 hours.
Post-op/Post-Proc Group 3: docusate (COLACE) capsule 100 mgJump to med 100 mg, Oral, EVERY 12 HOURS NEEDED, Starting on Fri07/14/22 at 1345, Until Fri07/17/22 at 1558, Constipation 1st Line
Hold for diarrhea or 2 stools in one day.
Post-op/Post-Proc Or docusate (COLACE) oral liquid 100 mgJump to med 100 mg, Per NG tube, 2 TIMES DAILY NEEDED, Starting on Fri07/14/22 at 1345, Until Fri07/17/22 at 1558, Constipation 1st Line
Hold for diarrhea or 2 stools in one day.
Post-op/Post-Proc Group 4: ondansetron 4mg/2ml (ZOFRAN) injection 4 mgJump to med 4 mg, Intravenous, EVERY 6 HOURS NEEDED, Starting on Fri07/12/22 at 1436, Until Fri07/17/22 at 1558, Nausea / Vomiting, 1st line, Post-op/Post-Proc Or ondansetron (ZOFRAN) tablet 4 mgJump to med 4 mg, Oral, EVERY 6 HOURS NEEDED, Starting on Fri07/12/22 at 1436, Until Fri07/17/22 at 1558, Nausea / Vomiting, 1st line, Post-op/Post-Proc Or ondansetron (ZOFRAN) tablet 4 mgJump to med 4 mg, Per NG tube, EVERY 6 HOURS NEEDED, Starting on Fri07/12/22 at 1436, Until Fri07/17/22 at 1558, Nausea / Vomiting, 1st line, Post-op/Post-Proc Group 5: oxyCODONE (ROXICODONE) tablet 5 mgJump to med 5 mg, Oral, EVERY 4 HOURS NEEDED, Starting on Fri07/12/22 at 1436, Until Fri07/17/22 at 1558, Moderate Pain
Use as initial dose. Higher dose may be administered if lower dose was previously documented as ineffective and did not result in adverse effects (RR<10, decrease in level of consciousness).
Post-op/Post-Proc Or oxyCODONE (ROXICODONE) oral solution 5 mgJump to med 5 mg, Oral, EVERY 4 HOURS NEEDED, Starting on Fri07/12/22 at 1436, Until Fri07/17/22 at 1558, Moderate Pain
Use as initial dose. Higher dose may be administered if lower dose was previously documented as ineffective and did not result in adverse effects (RR<10, decrease in level of consciousness).
Post-op/Post-Proc Or oxyCODONE (ROXICODONE) oral solution 5 mgJump to med 5 mg, Per NG tube, EVERY 4 HOURS NEEDED, Starting on Fri07/12/22 at 1436, Until Fri07/17/22 at 1558, Moderate Pain
Use as initial dose. Higher dose may be administered if lower dose was previously documented as ineffective and did not result in adverse effects (RR<10, decrease in level of consciousness).
Post-op/Post-Proc Or oxyCODONE HCl (ROXICODONE) tablet 10 mgJump to med 10 mg, Oral, EVERY 4 HOURS NEEDED, Starting on Fri07/12/22 at 1436, Until Fri07/17/22 at 1558, Moderate Pain
Higher dose may be administered if lower dose was previously documented as ineffective and did not result in adverse effects (RR<10, decrease in level of consciousness). Decrease back to lower dose if patient has adverse effects, or no PRN used in previous 12 hours.
Post-op/Post-Proc Or oxyCODONE (ROXICODONE) oral solution 10 mgJump to med 10 mg, Oral, EVERY 4 HOURS NEEDED, Starting on Fri07/12/22 at 1436, Until Fri07/17/22 at 1558, Moderate Pain
Higher dose may be administered if lower dose was previously documented as ineffective and did not result in adverse effects (RR<10, decrease in level of consciousness). Decrease back to lower dose if patient has adverse effects, or no PRN used in previous 12 hours.
Post-op/Post-Proc Or oxyCODONE (ROXICODONE) oral solution 10 mgJump to med 10 mg, Per NG tube, EVERY 4 HOURS NEEDED, Starting on Fri07/12/22 at 1436, Until Fri07/17/22 at 1558, Moderate Pain
Higher dose may be administered if lower dose was previously documented as ineffective and did not result in adverse effects (RR<10, decrease in level of consciousness). Decrease back to lower dose if patient has adverse effects, or no PRN used in previous 12 hours.
Post-op/Post-Proc Group 6: polyethylene glycol (MIRALAX) packet 17 gJump to med 17 g, Oral, DAILY NEEDED, Starting on Fri07/12/22 at 1436, Until Fri07/17/22 at 1558, Constipation If No Bowel Movement in 48 Hours, Post-op/Post-Proc Or polyethylene glycol (MIRALAX) packet 17 gJump to med 17 g, Per NG tube, DAILY NEEDED, Starting on Fri07/12/22 at 1436, Until Fri07/17/22 at 1558, Constipation If No Bowel Movement in 48 Hours, Post-op/Post-Proc Group 7: Promethazine HCl (PHENERGAN) tablet 12.5 mgJump to med 12.5 mg, Oral, EVERY 6 HOURS NEEDED, Starting on Fri07/12/22 at 1436, Until Fri07/17/22 at 1558, Nausea / Vomiting, 2nd line, Post-op/Post-Proc Or Promethazine HCl (PHENERGAN) tablet 12.5 mgJump to med 12.5 mg, Per NG tube, EVERY 6 HOURS NEEDED, Starting on Fri07/12/22 at 1436, Until Fri07/17/22 at 1558, Nausea / Vomiting, 2nd line, Post-op/Post-Proc Or promethazine (PHENERGAN) injection 12.5 mgJump to med 12.5 mg, Intravenous, EVERY 6 HOURS NEEDED, Starting on Fri07/12/22 at 1436, Until Fri07/17/22 at 1558, Nausea / Vomiting, Refractory Nausea Vomiting, 2nd line
Extravasation Risk. If given via IV route: dilute dose with 10mL normal saline and inject through a running IV or line over 5 minutes OR if no active IV or line is saline-dwelled dilute dose with 20mL normal saline and administer over 5 minutes. AVOID Intra-arterial administration; necrosis & gangrene have resulted. Hand, wrist or foot veins SHOULD BE AVOIDED.
Post-op/Post-Proc Group 8: senna (SENOKOT) tablet 8.6 mgJump to med 8.6 mg, Oral, EVERY 12 HOURS NEEDED, Starting on Fri07/14/22 at 1345, Until Fri07/17/22 at 1558, Constipation 1st Line, Post-op/Post-Proc Or senna (SENOKOT) tablet 8.6 mgJump to med 8.6 mg, Per NG tube, EVERY 12 HOURS NEEDED, Starting on Fri07/14/22 at 1345, Until Fri07/17/22 at 1558, Constipation 1st Line, Post-op/Post-Proc Scheduled Medication Order 07/20/2022 07/21/2022 07/22/2022 allopurinol (ZYLOPRIM) tablet 100 mg 100 mg, Oral, DAILY, First dose on Fri07/22/22 at 0900, Until Discontinued 0849 (Given - Provid er: Ethel Callejas RN) atenolol (TENORMIN) tablet 25 mg 25 mg, Oral, DAILY, First dose on Fri07/22/22 at 0900, Until Discontinued, 0859 (Given - Provid er: Ethel Callejas RN) atorvastatin (LIPITOR) tablet 10 mg 10 mg, Oral, DAILY AT BEDTIME, First dose on Fri07/21/22 at 2100, Until Discontinued 1954 (Given - Provider: Irma Marinelli RN) chlorhexidine (PERIDEX) 0.12 % oral solution 15 mL 15 mL, Oral, 4 TIMES DAILY, First dose on Fri07/21/22 at 1300, Until Discontinued 1428 (Given - Provider: Ethel Callejas RN)2001 (Given - Provider: Irma Marinelli RN)2044 (Not Given - Provider: Irma Marinelli RN - Reason: Other - Comment: too soon to give) 0849 (Given - Provider: Ethel Callejas RN)1300 (Canceled Entry - Provider: System Discharge - Comment: Automatically canceled at discontinue of medication order) escitalopram (LEXAPRO) tablet 10 mg 10 mg, Oral, DAILY, First dose on Fri07/22/22 at 0900, Until Discontinued 0849 (Given - Provid er: Ethel Callejas RN) eucerin cream 1 Application 1 Application, Topical, 3 TIMES DAILY, First dose on 07/21/22 at 2100, Until Discontinued, Apply to leg Patient may self-administer. 1952 (Given - Provider: Irma Marinelli RN) 0850 (Given - Provider: Ethel Callejas RN) hydroCHLOROthiazide (HYDRODIURIL) tablet 25 mg 25 mg, Oral, DAILY, First dose on Fri07/22/22 at 0900, Until Discontinued 0848 (Given - Provid er: Ethel Callejas RN) hydroxychloroquine (PLAQUENIL) tablet 200 mg 200 mg, Oral, 2 TIMES DAILY, First dose on 07/21/22 at 1700, Until Discontinued 1958 (Given - Provider: Irma Marinelli RN) 0848 (Given - Provider: Ethel Callejas RN) levothyroxine (SYNTHROID) tablet 75 mcg 75 mcg, Oral, DAILY BEFORE BREAKFAST, First dose on Fri07/22/22 at 0600, Until Discontinued 05 (Given - Provid er: Irma Marinelli RN) magic mouthwash (standard) Swish & Spit, 4 TIMES DAILY, First dose on 07/21/22 at 1300, Until Discontinued, Shake well. Expiration 7 days. 1505 (Given - Provider: Ethel Callejas RN)2000 (Given - Provider: Irma Marinelli RN)2044 (Not Given - Provider: Irma Marinelli RN - Reason: Other - Comment: too soon to give) 0857 (Not Given - Provider: Ethel Callejas RN - Reason: Patient/family refused)1300 (Canceled Entry - Provider: System Discharge - Comment: Automatically canceled at discontinue of medication order) magnesium oxide (MAG-OX) tablet 400 mg 400 mg, Oral, 2 TIMES DAILY, First dose on 07/21/22 at 1700, Until Discontinued 1954 (Given - Provider: Irma Marinelli RN) 0848 (Given - Provider: Ethel Callejas RN) melatonin tablet 3 mg (COMPLETED) 3 mg, Oral, ONCE, 1 dose, On Fri07/22/22 at 0000 0006 (Given - Provid er: Irma Marinelli RN) metFORMIN (GLUCOPHAGE) tablet 500 mg 500 mg, Oral, 2 TIMES DAILY WITH MEALS, First dose on 07/21/22 at 1700, Until Discontinued, Do not use in patients with eGFR < 30 ml/min; if eGFR falls below 45 ml/min: assess benefits and risks of continuing treatment. Discontinue with IV Dye administration. 2000 (Given - Provider: Irma Marinelli RN) 0848 (Given - Provider: Ethel Callejas RN) potassium chloride (K-DUR) tablet ER 20 mEq 20 mEq, Oral, DAILY, First dose on Fri07/22/22 at 0900, Until Discontinued, Swallow tablets whole; do not crush, chew, or suck on tablet. Tablet may also be broken in half and each half swallowed separately. 0848 (Given - Provid er: Ethel Callejas RN) PRN Medication Order 07/20/2022 07/21/2022 07/22/2022 acetaminophen (TYLENOL) tablet 650 mg 650 mg, Oral, EVERY 6 HOURS NEEDED, Starting on 07/21/22 at 1434, Until Fri07/22/22 at 1355, Moderate Pain, Maximum dose of acetaminophen is 4000 mg from all sources in 24 hours. 1429 (Given - Provider: Ethel Callejas RN) 0006 (Given - Provider: Irma Marinelli RN)0849 (Given - Provider: Ethel Callejas RN) oxyCODONE (ROXICODONE) tablet 5 mg 5 mg, Oral, EVERY 6 HOURS NEEDED, Starting on 07/21/22 at 1929, Until Fri07/22/22 at 1355, Severe Pain 1955 (Given - Provider: Irma Marinelli RN) 0514 (Given - Provider: Irma Marinelli RN) INFORMATION SOURCE (unrecogn ized section and content) FOR RECORDS PERTAINING TO PATIENTS WHO ARE OR HAVE BEEN ENROLLED IN A CHEMICAL DEPENDENCY/SUBSTANCEABUSE PROGRAM, SOME INFORMATION MAY BE OMITTED. This clinical summary was aggregated from multiple sources. Caution should be exercised in using it in the provision of clinical care. This summary normalizes information from multiple sources, and as a consequence, information in this document may materially change the coding, format and clinical context of patient data. In addition, data may be omitted in some cases. CLINICAL DECISIONS SHOULD BE BASED ON THE PRIMARY CLINICAL RECORDS. [facility] [facility]. provides no warranty or guarantee of the accuracy or completeness of information in this document.
[2023-10-21 07:22] LABS: Absolute Lymphocyte Count 1.61 X10^3/uL (0.83-4.51); Absolute Neutrophil Count 3.2 X10^3/uL (2.0-7.7); Basophil# 0.07 X10^3/uL; Basophil% 1.3 % (0-1); Eosinophil# 0.14 X10^3/uL; Eosinophils% 2.5 % (0-5); Hematocrit 42.7 % (37-47); Hemoglobin 13.5 g/dL (12.0-15.0); Lymphocyte # 1.61 X10^3/ul (0.83-4.51); Lymphocyte % 29.1 % (19-41); Mean Corp Hgb Conc 31.6 g/dL (32-36); Mean Corpuscular Hgb 28.1 pg (27.0-32.0); Mean Corpuscular Volume 88.8 fL (81-99); Monocyte# 0.48 X10^3/uL; Monocyte% 8.7 % (0-10); NRBC Flagged by Analyzer 0 % (0-5); Neutrophil # 3.22 X10^3/uL (2.7-7.7); Platelet Count 230 K/mm3 (150-450); RBC Distribution Width CV 13.4 % (11.6-14.6); RBC Distribution Width SD 43.8 fl (35.1-43.9); Red Blood Count 4.81 M/mm3 (4.2-5.4); White Blood Count 5.5 K/mm3 (4.4-11.0)
[2023-10-21 07:56] LABS: AST(SGOT) 39 U/L (15-37); Alanine Aminotransfer ALT/SGPT 52 U/L (13-56); Albumin, Serum 3.8 g/dL (3.2-5.0); Alkaline Phosphatase 83 U/L (45-117); Anion Gap 6 (5-15); BUN 15 mg/dL (7-18); BUN/Creat Ratio 17.1 RATIO (10-20); Calcium,Total 9.3 mg/dL (8.5-10.1); Chloride 104 mmol/L (98-107); Cholesterol 127 mg/dL (200); Creatinine, Serum 0.88 mg/dL (0.55-1.02); EST Glomerular Filtration Rate 68 mL/min (>60); Est Glom Filt Rate - Afr Amer 83 mL/min (>60); Globulin 3.9 g/dL (2.2-4.2); Glucose 206 mg/dL (74-106); High Density Lipoprotein 56 mg/dL; Magnesium 1.6 mg/dL (1.6-2.6); Protein, Total 7.7 g/dL (6.4-8.2); Sodium Level 140 mmol/L (136-145); T4 Free Direct 1.05 ng/dL (0.76-1.46); Thyroid Stim Hormone (TSH) 2.69 uIU/mL (0.358-3.74); Triglycerides 107 mg/dL; Very Low Density Lipoprotein 21 mg/dL (5-40)
[2023-10-21 10:13] LABS: Microalbumin,Random Urine 7.4 mg/L (NO RANGE EST.); Microalbumin:Creatinine Ratio 10.1 mg/g CRE (<30 mg/g CRE)
[2023-10-21 13:53] LABS: Vitamin D,25 Hydroxy 58.5 ng/mL
== END | disposition home or self-care (01) ==
LOC: LAB 06:43
PROVIDERS: PCP Family Medicine; Referring Provider Family Medicine; Visit Provider Family Medicine
DX: E11.8 Type 2 diabetes mellitus with unspecified complications (principal); E03.8 Other specified hypothyroidism; E55.9 Vitamin D deficiency, unspecified
CPT/HCPCS: 36415; 80053; 80061; 82043; 82306; 82570; 83036; 83735; 84439; 84443; 85025

== ENCOUNTER → 2023-12-20 | Outpatient (CLI) | payer MEDICARE, OTHER, SELFPAY ==
--- OUTSIDE RECORDS SUMMARY | 2023-12-20 08:53 | XMS RPT_ITS | CCD ---
Author Name Unknown Address [email or web address] [place] [address] Organization [facility] Care Team Providers Care Reject Opener Name Role Phone Maxime Astorga MD Unavailable Duong Durham MD Primary Care Provider Duong Durham MD Primary Care Provider Duong Durham MD Primary Care Provider [phone] DUONG DURHAM Primary Care Unavailable MARLEN REEVES [...] Facility (1 source) sulfacetamide Drug Allergy 8 [facility] [place] [facility] Work Phone: (9 sources) Sulfonamides (Antibiotic) Propensity to adverse reactions to drug 2 Rash [facility] (9 sources) *Seasonal Propensity to adverse reactions to substance 2 [facility] Medications Current Medications Medication Drug Class(es) Dates [...] 36.03 kg/m2 Ricky Bingham MD Work Phone: [facility] 06-25-2023 13:50-0400 Body temperature 97.5 [degF] Ricky Bingham MD Work Phone: [facility] 06-25-2023 13:50-0400 Body weight 89.36 kg Ricky Bingham MD Work Phone: [facility] 06-25-2023 13:50-0400 Diastolic blood pressure 58 mm[Hg] Ricky Bingham MD Work Phone: [facility] 09-13-2023 13:50-0400 Heart rate 85 /min Ricky Bingham MD Work Phone: [facility] 06-25-2023 13:50-0400 Respiratory rate 16 /min Ricky Bingham MD Work Phone: [facility] 06-25-2023 13:50-0400 SaO2% (BldA) [Mass fraction] 98 % Ricky Bingham MD Work Phone: [facility] 06-25-2023 13:50-0400 Systolic blood pressure 110 mm[Hg] Ricky Bingham MD Work Phone: [facility] 11-20-2022 13:54-0500 Body mass index (BMI) [Ratio] 34.88 kg/m2 Heather Gonzalo PA-C Work Phone: [facility] 11-20-2022 13:54-0500 Body temperature 96.21 [degF] Heather Gonzalo PA-C Work Phone: [facility] 11-20-2022 13:54-0500 Body weight 86.5 kg Heather Gonzalo PA-C Work Phone: [facility] 11-20-2022 13:54-0500 Diastolic blood pressure 71 mm[Hg] Heather Crabtreelman PA-C Work Phone: [facility] 11-20-2022 13:54-0500 Heart rate 71 /min Heather Gonzalo PA-C Work Phone: [facility] 11-20-2022 13:54-0500 Respiratory rate 16 /min Heather Crabtreelman PA-C Work Phone: [facility] 11-20-2022 13:54-0500 SaO2% (BldA) [Mass fraction] 98 % Heather Crabtreelman PA-C Work Phone: [facility] 11-20-2022 13:54-0500 Systolic blood pressure 130 mm[Hg] Heather Sánchez PA-C Work Phone: [facility] 08-21-2022 14:38-0500 Body mass index (BMI) [Ratio] 34.02 kg/m2 Ricky Bingham MD Work Phone: [facility] 08-21-2022 14:38-0500 Body temperature 96.01 [degF] Ricky Bingham MD Work Phone: [facility] 08-21-2022 14:38-0500 Body weight 84.37 kg Ricky Bingham MD Work Phone: [facility] 08-21-2022 14:38-0500 Diastolic blood pressure 60 mm[Hg] Ricky Bingham MD Work Phone: [facility] 08-21-2022 14:38-0500 Heart rate 73 /min Ricky Bingham MD Work Phone: [facility] 08-21-2022 14:38-0500 Respiratory rate 18 /min Ricky Bingham MD Work Phone: [facility] 08-21-2022 14:38-0500 SaO2% (BldA) [Mass fraction] 98 % Ricky Bingham MD Work Phone: [facility] 08-21-2022 14:38-0500 Systolic blood pressure 123 mm[Hg] Ricky Bingham MD Work Phone: [facility] 07-24-2022 14:52-0400 Body mass index (BMI) [Ratio] 32.89 kg/m2 Ricky Bingham MD Work Phone: [facility] 07-24-2022 14:52-0400 Body temperature 96.49 [degF] Ricky Bingham MD Work Phone: [facility] 07-24-2022 14:52-0400 Body weight 81.56 kg Ricky Bingham MD Work Phone: [facility] 07-24-2022 14:52-0400 Diastolic blood pressure 75 mm[Hg] Ricky Bingham MD Work Phone: [facility] 07-24-2022 14:52-0400 Heart rate 84 /min Ricky Bingham MD Work Phone: [facility] 07-24-2022 14:52-0400 Respiratory rate 16 /min Ricky Bingham MD Work Phone: [facility] 07-24-2022 14:52-0400 SaO2% (BldA) [Mass fraction] 93 % Ricky Bingham MD Work Phone: [facility] 07-24-2022 14:52-0400 Systolic blood pressure 115 mm[Hg] Ricky Bingham MD Work Phone: 7(908)060-129733 [address] 07-22-2022 09:38-0400 Body temperature 98.1 [degF] Noemi Ovalle MD Work Phone: 6(510)025-944610 [place] [address] 07-22-2022 09:38-0400 Diastolic blood pressure 59 mm[Hg] Noemi Ovalle MD Work Phone: 6(970)786-263910 [place] [address] 07-22-2022 09:38-0400 Heart rate 70 /min Noemi Ovalle MD Work Phone: 1(665)473-940810 [place] [address] 07-22-2022 09:38-0400 Respiratory rate 17 /min Noemi Ovalle MD Work Phone: 6(629)348-067510 [place] [address] 07-22-2022 09:38-0400 SaO2% (BldA) [Mass fraction] 97 % Noemi Ovalle MD Work Phone: 8(301)357-093510 [place] [address] 07-22-2022 09:38-0400 Systolic blood pressure 111 mm[Hg] Noemi Ovalle MD Work Phone: [facility] 07-21-2022 10:47-0400 Body height 157.5 cm Noemi Ovalle MD Work Phone: [facility] 07-17-2022 08:00-0400 Body temperature 98.91 [degF] Ricky Bingham MD Work Phone: [facility] 07-17-2022 08:00-0400 Diastolic blood pressure 64 mm[Hg] Ricky Bingham MD Work Phone: [facility] 07-17-2022 08:00-0400 Heart rate 66 /min Ricky Bingham MD Work Phone: [facility] 07-17-2022 08:00-0400 Respiratory rate 16 /min Ricky Bingham MD Work Phone: [facility] 07-17-2022 08:00-0400 SaO2% (BldA) [Mass fraction] 98 % Ricky Bingham MD Work Phone: [facility] 07-17-2022 08:00-0400 Systolic blood pressure 142 mm[Hg] Ricky Bingham MD Work Phone: [facility] 07-12-2022 14:25-0400 Body height 157.5 cm Ricky Bingham MD Work Phone: [facility] 07-12-2022 14:25-0400 Body mass index (BMI) [Ratio] 35.48 kg/m2 Ricky Bingham MD Work Phone: [facility] 07-12-2022 14:25-0400 Body weight 88 kg Ricky Bingham MD Work Phone: [facility] 07-03-2022 12:14-0400 Body height 162.6 cm Heather Sánchez PA-C Work Phone: [facility] 07-03-2022 12:14-0400 Diastolic blood pressure 66 mm[Hg] Heather MCKEON-C Work Phone: [facility] 07-03-2022 12:14-0400 Heart rate 71 /min Heather Sánchez PA-C Work Phone: [facility] 07-03-2022 12:14-0400 Systolic blood pressure 125 mm[Hg] Heather MCKEON-C Work Phone: [facility] 07-03-2022 09:08-0400 Body height 162.6 cm Julia Rae MD Work Phone: 8(622)933-929056 [address] 07-03-2022 09:08-0400 Body mass index (BMI) [Ratio] 33.13 kg/m2 Julia Rae MD Work Phone: 9(003)763-581256 [address] 07-03-2022 09:08-0400 Body temperature 97.59 [degF] Julia Rae MD Work Phone: 5(756)029-371963 [place] [address] 07-03-2022 09:08-0400 Body weight 87.54 kg Julia Rae MD Work Phone: 0(561)243-656856 [address] 07-03-2022 09:08-0400 Diastolic blood pressure 74 mm[Hg] Julia Rae MD Work Phone: [facility] 07-03-2022 09:08-0400 Heart rate 68 /min Julia Rae MD Work Phone: 3(790)485-956263 [place] [address] 07-03-2022 09:08-0400 Respiratory rate 18 /min Julia Rae MD Work Phone: 0(343)208-567256 [address] 07-03-2022 09:08-0400 SaO2% (BldA) [Mass fraction] 96 % Julia Rae MD Work Phone: 7(888)601-330063 [place] [address] 07-03-2022 09:08-0400 Systolic blood pressure 118 mm[Hg] Julia Rae MD Work Phone: [facility] 06-13-2022 12:44-0400 Body height 162.6 cm Ricky Bingham MD Work Phone: [facility] 06-13-2022 12:44-0400 Body mass index (BMI) [Ratio] 33.35 kg/m2 Ricky Bingham MD Work Phone: [facility] 06-13-2022 12:44-0400 Body temperature 97.5 [degF] Ricky Bingham MD Work Phone: [facility] 06-13-2022 12:44-0400 Body weight 88.13 kg Ricky Bingham MD Work Phone: [facility] 06-13-2022 12:44-0400 Diastolic blood pressure 61 mm[Hg] Ricky Bingham MD Work Phone: [facility] 06-13-2022 12:44-0400 Heart rate 67 /min Ricky Bingham MD Work Phone: [facility] 06-13-2022 12:44-0400 Respiratory rate 20 /min Ricky Bingham MD Work Phone: [facility] 06-13-2022 12:44-0400 SaO2% (BldA) [Mass fraction] 95 % Ricky Bingham MD Work Phone: [facility] 06-13-2022 12:44-0400 Systolic blood pressure 129 mm[Hg] Ricky Bingham MD Work Phone: [facility] NEGATED: Highlighted [id number] 08:07-0400 BMI (Body Mass Index) 37.63 kg/m2 [facility] Work Phone: NEGATED: Highlighted [id number] 08:07-0400 BP Diastolic 79 mm[Hg] [facility] Work Phone: NEGATED: Highlighted [id number] 08:07-0400 BP Systolic 121 mm[Hg] Ashley Teddy [facility] Work Phone: NEGATED: Highlighted [id number] 08:07-0400 Height 157.48 cm Ashley Teddy [facility] Work Phone: NEGATED: Highlighted [id number] 08:07-0400 Height 157 cm Ashley Teddy [facility] Work Phone: NEGATED: Highlighted [id number] 08:07-0400 Pulse (Heart Rate) 73 /min Ashleyya Espinal [facility] Work Phone: NEGATED: Highlighted [id number] 08:07-0400 Weight 92.99 kg Ashleynelsy Espinal [facility] Work Phone: NEGATED: Highlighted [id number] 08:07-0400 Weight 93 kg Ashley Espinal [facility] Work Phone: Encounters Encounter Date Encounter Type Care Provider Facility Start: 06-25-2023 ambulatory RICKY BINGHAM Facility :[facility] Start: 06-25-2023 End: 06-25-2023 Office outpatient visit 15 minutes Ricky Bingham MD Work Phone: Department of Otolaryngology Procedures Date Procedure Procedure Detail Performing Clinician Start: 06-25-2023 Follow-up visit Follow-up RICKY BINGHAM Start: 07-22-2022 Blood count hematocrit Tomasa Aburto SPINNING MACHINE OPERATOR-CONTINUOUS WELD PIPE MILL SUPERVISOR Work Phone: Start: 07-21-2022 Glucose measurement, blood Jose Devine MD Work Phone: Start: 07-21-2022 Blood count hematocrit Tomasa Aburto SPINNING MACHINE OPERATOR-CONTINUOUS WELD PIPE MILL SUPERVISOR Work Phone: Start: 07-21-2022 Glucose measurement, blood Jose Devine MD Work Phone: Start: 07-21-2022 CBC AND ELECTRONIC DIFF Ilene Jd [employer] SPINNING MACHINE OPERATOR-CONTINUOUS WELD PIPE MILL SUPERVISOR Work Phone: Start: 07-21-2022 Complete blood count with white cell differential, automated Ilene D [employer] SPINNING MACHINE OPERATOR-CONTINUOUS WELD PIPE MILL SUPERVISOR Work Phone: Start: 07-21-2022 LT BLUE TOP TUBE Ilene D [employer]berry SPINNING MACHINE OPERATOR-CONTINUOUS WELD PIPE MILL SUPERVISOR Work Phone: Start: 07-17-2022 Glucose measurement, blood [...] Detail Author Start: 03-29-2031 Tetanus vaccination TETANUS [facility] Start: 12-30-2023 End: 12-30-2023 Patient encounter procedure 12/30/2023 2:30 PM EDT Office Visit Department of Otolaryngology [address] [place] [id number] Heather Sánchez, SHREYAS [address] [place] [address] Department of Otolaryngology Start: 07-26-2023 Potassium [Moles/volume] in Serum or Plasma POTASSIUM [facility] Start: 07-17-2023 Potassium [Moles/volume] in Serum or Plasma POTASSIUM [facility] Start: 07-03-2023 Potassium [Moles/volume] in Serum or Plasma POTASSIUM [facility] Start: 06-13-2023 COVID-19 VACCINE ( season) COVID-19 VACCINE ( season) [facility] Start: 06-13-2023 Influenza vaccination INFLUENZA VACCINE (#1) [facility] Start: 02-19-2023 End: 02-19-2023 Patient encounter procedure 02/19/2023 Office Visit Otolaryngology Ricky Bingham MD [address] [place] [phone] Department of Otolaryngology Start: 11-20-2022 End: 11-20-2022 Patient encounter procedure 11/20/2022 Office Visit Otolaryngology Ricky Bingham MD [address] [place] [address] Department of Otolaryngology Start: 07-24-2022 End: 07-24-2022 ambulatory 07/24/2022 Rehab Services Visit Voice & Swallowing Jayda Block, CALENDERING SUPERVISOR [facility] Start: 07-24-2022 End: 07-24-2022 Patient encounter procedure 07/24/2022 Office Visit Otolaryngology Ricky Bingham MD [address] [place] [address] Department of Otolaryngology Start: 07-22-2022 COVID-19 VACCINE (2 - Pfizer series) COVID-19 VACCINE (2 - Pfizer series) [facility] Start: 07-12-2022 End: 07-12-2022 Cervical lymphadec modified radical neck dsj LYMPHADENECTOMY CERVICAL (MODIFIED RADICAL NECK DISSECTION) 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 Ashley Espinal [facility] Work Phone: Payers Date Payer Category Payer Medicare MEDICARE MEDICAR E A AND B [id number] 2022-Present [address] [place] [address] [id number] 2022 Medicare [id number] 2022 Unknown AARP AARP [id number] 2022-Present [address] [place] [address] [id number] 2022 Unknown [id number] 1955 Unknown [id number] 1955 Unknown [id number] 1955 Unknown [id number] 1955 Unknown [id number] Social History Date Type Detail Facility Start: 06-13-2022 Tobacco smoking status NHIS Never smoked tobacco [facility] Start: 06-13-2022 Tobacco use and exposure Smokeless tobacco non-user [facility] Start: 06-13-2022 End: 08-21-2022 Alcohol intake Lifetime non-drinker (finding) [facility] Start: 1955 Sex Assigned At Not on file [facility] Start: 07-05-2022 End: 07-24-2022 Exposure to SARS-CoV-2 (event) Not sure [facility] Start: 11-10-2022 End: 11-20-2022 Exposure to SARS-CoV-2 (event) Unable to assess [facility] Start: 08-21-2022 End: 06-25-2023 History of Social function [facility] Start: 08-21-2022 End: 06-25-2023 Tobacco use panel [facility] Adolescent depressio n screening assessment 0 [facility] NEGATED: Highlighted rowStart: 06-18-2018 End: 06-18-2018 Alcohol use Never smoker [facility] Work Phone: NEGATED: Highlighted rowStart: 06-18-2018 End: 06-18-2018 Details of drug misuse behavior DRUG USE No [facility] Work Phone: NEGATED: Highlighted rowStart: 06-18-2018 End: 06-18-2018 Assertion Never smoker [facility] Work Phone: Medical Equipment Procedure Code Equipment Code Equipment Origin al Text Equipment Identifier Dates Hemostat Surgice l Powder 3 Grams Absorbable - [id number] Start: 07-12-2022 Clinical Notes 06-13-2022 to [...] glossectomy, Right selective neck dissection, levels I-IV, [place] of split-thickness skin graft 5 cm x [...] daily every morning. First-BLM mouthwash (commercial containing Ulctgyrpw-Ybtbvsevm-To/MgHydr-Sim eth) 1 tbsp Q4-6 hrs PRN mouth [...] glossectomy, Right selective neck dissection, levels I-IV, [place] of split-thickness skin graft 5 cm x [...] Continue tumor surveillance. documented in this encounter [facility] 06-25-2023 Instructions Maribel Durán RN - 06/25/2023 2:15 PM EDT Please call Dr. Bingham's nurse at [phone] if you notice any new lumps in head or neck, new onset of difficulty with swallowing, persistent ear pain, hoarseness or new pain in head and neck that does not go away for 2 weeks. For covid vaccine call [phone] ([phone]). 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 First-BLM mouthwash (commercial containing Xgxgcwooo-Zuyemvlap-Kl/MgHydr-Sim eth) 1 tbsp Q4-6 hrs PRN mouth [...] glossectomy, Right selective neck dissection, levels I-IV, [place] of split-thickness skin graft 5 cm x 7 cm from right anterolateral thigh 07/12/23. She is s/p control of oropharyngeal bleed on 07/24. WILLY on exam today. - will trial gabapentin for nerve pain - Clotrimazole dayday X 7 days - Follow up with Dr. Reeves RTC in 3 months or sooner if needed. documented in this encounter [facility] 11-20-2022 Instructions Maribel Durán RN - 11/20/2022 2:15 PM EST Please call Dr. Bingham's nurse at [phone] if you notice any new lumps in head or neck, new onset of difficulty with swallowing, persistent ear pain, hoarseness or new pain in head and neck that does not go away for 2 weeks. For covid vaccine call [phone] ([phone]). documented in this encounter [facility] 11-20-2022 Miscellaneous Notes Addended by: HEATHER SÁNCHEZ on: 11/20/2022 02:45 PM Modules accepted: Orders documented in this encounter [facility] 11-20-2022 Note Addended by: HEATHER SÁNCHEZ on: 11/20/2022 02:45 PM Modules accepted: Orders [facility] 08-21-2022 History of Presen t illness Narrative Images from the original note were not included. Chief Complaint: SCCa Right Postero-Lateral Tongue HPI: 67 yo F, never smoker referred by Dr. Reeves for surgical evaluation of T1N0 SCCa right lateral tongue s/p Right partial glossectomy, Right selective neck dissection, levels I-IV, [place] of split-thickness skin graft 5 cm x [...] N/A; Surgeon: Ricky Bingham MD; [facility] GLOSSECTOMY LESS THAN 1/2 TONGUE Right 07/12/2022 Laterality: Right; Surgeon: Ricky Bingham MD; [facility] OR GRAFT SKIN SPLIT THICKNESS EAR EYELID FACE MOUTH ORBIT (STSG) N/A 07/12/2022 Laterality: N/A; Surgeon: Ricky Bingham MD; [facility] LYMPHADENECTOMY CERVICAL (MODIFIED RADICAL NECK DISSECTION) Right 07/12/2022 Laterality: Right; Surgeon: Ricky Bingham MD; [facility] KNEE REPLACEMENT Right KNEE [...] daily every morning. First-BLM mouthwash (commercial containing Ewweokznr-Udmxjheoq-Sb/MgHydr-Sim eth) 1 tbsp Q4-6 hrs PRN mouth [...] at this time Pathologic Diagnosis Outside Slides [id number] (06/03/22) B. Right lateral tongue, incisional biopsy: [...] glossectomy, Right selective neck dissection, levels I-IV, [place] of split-thickness skin graft 5 cm x [...] documentation where appropriate. documented in this encounter [facility] 08-21-2022 Instructions Trish Castellon RN - 08/21/2022 3:15 PM EST Please call Dr. Bingham's nurse at [phone] if you notice any new lumps in head or neck, new onset of difficulty with swallowing, persistent ear pain, hoarseness or new pain in head and neck that does not go away for 2 weeks. For covid vaccine call [phone] ([phone]). documented in this encounter [facility] 07-24-2022 History of Presen t illness Narrative Images from the original note were not included. Chief Complaint: SCCa Right Postero-Lateral Tongue HPI: 67 yo F, never smoker referred by Dr. Reeves for surgical evaluation of T1N0 SCCa right lateral tongue s/p Right partial glossectomy, Right selective neck dissection, levels I-IV, [place] of split-thickness skin graft 5 cm x [...] Reported on 07/24/2022) First-BLM mouthwash (commercial containing Ibrxxtjvu-Ezhpcamjt-Im/MgHydr-Sim eth) 1 tbsp Q4-6 hrs PRN mouth [...] at this time Pathologic Diagnosis Outside Slides [id number] (06/03/22) B. Right lateral tongue, incisional biopsy: [...] glossectomy, Right selective neck dissection, levels I-IV, [place] of split-thickness skin graft 5 cm x [...] extremities. Extremities: JEAN x 4, Warm. Skin: Deal, warm and dry. Psychiatric: Normal mood and [...] airway control. documented in this encounter [facility] 07-24-2022 Instructions Trish Castellon RN - 07/24/2022 3:45 PM EDT Please call Dr. Bingham's nurse at [phone] if you notice any new lumps in head or neck, new onset of difficulty with swallowing, persistent ear pain, hoarseness or new pain in head and neck that does not go away for 2 weeks. For covid vaccine call [phone] ([phone]). documented in this encounter [facility] 07-22-2022 Note Formatting of this n ote [...] Auto 1.39 1.16 - 3.51 K/uL Abs [place] Auto 0.96 (H) 0.22 - 0.87 K/uL [...] so that it accurately reflects [facility] 07-22-2022 Miscellaneous Notes This [...] Auto 1.39 1.16 - 3.51 K/uL Abs [place] Auto 0.96 (H) 0.22 - 0.87 K/uL [...] Auto 1.39 1.16 - 3.51 K/uL Abs [place] Auto 0.96 (H) 0.22 - 0.87 K/uL Abs Eos Auto 0.30 0.00 - 0.42 K/uL Abs Bas[place] Auto 0.05 0.00 - 0.15 K/uL Plan: serial Hg, monitor for bleeding documented in this encounter [facility] 07-22-2022 History of Presen t illness Narrative [...] Otolaryngology - Head and Neck Surgery Pager #[phone] documented in this encounter [facility] 07-21-2022 Hospital Discharg e instructions Trish Weiner, SPINNING MACHINE OPERATOR-CONTINUOUS WELD PIPE MILL SUPERVISOR - 07/21/2022 4:14 PM EDT - [employer] [...] Auto 1.39 1.16 - 3.51 K/uL Abs [place] Auto 0.96 (H) 0.22 - 0.87 K/uL [...] attachments cannot be sent through Care Everywhere.Hemoptysis (Chinese)documented in this encounter [facility] 07-21-2022 Note Formatting of this n ote is different from the original. DEPARTMENT OF EMERGENCY MEDICINE CHIEF COMPLAINT Chief Complaint Patient presents with Post-Op Problem HISTORY OF PRESENT ILLNESS Astird Dumont is a 67 y.o. female with [...] Right; Surgeon: Ricky Bingham MD; [facility] GRAFT SKIN SPLIT THICKNESS EAR EYELID FACE MOUTH ORBIT (STSG) N/A 07/12/2022 Laterality: N/A; Surgeon: Ricky Bingham MD; [facility] LYMPHADENECTOMY CERVICAL (MODIFIED RADICAL NECK DISSECTION) Right 07/12/2022 Laterality: Right; Surgeon: Ricky Bingham MD; [facility] KNEE REPLACEMENT Right KNEE [...] by: JAVIER Cole, 07/21/2022 12:53 PM [facility] Work Phone: 07-21-2022 Note Formatting of this [...] Auto 1.39 1.16 - 3.51 K/uL Abs [place] Auto 0.96 (H) 0.22 - 0.87 K/uL Abs Eos Auto 0.30 0.00 - 0.42 K/uL Abs Baso Auto 0.05 0.00 - 0.15 K/uL Plan: serial Hg, monitor for bleeding [facility] 07-21-2022 Physician Emergency department Note This patient's [...] 07/21/22 1110 Noemi Ovalle MD 07/21/22 1111 [facility] Work Phone: 07-21-2022 Emergency department Note This [...] the attending physician. This note dictated using [employer] voice recognition software. Attempts at proofreading [...] tongue. Patient states she sent pictures via [employer] to her doctor and they are afraid the graft is falling off. Patient if alert and oriented x4, VSS. No s/s of distress noted. documented in this encounter [facility] 07-21-2022 Physician Emergency department Note Images from [...] Right; Surgeon: Ricky Bingham MD; [facility] GRAFT SKIN SPLIT THICKNESS EAR EYELID FACE MOUTH ORBIT (STSG) N/A 07/12/2022 Laterality: N/A; Surgeon: Ricky Bingham MD; [facility] OR LYMPHADENECTOMY CERVICAL (MODIFIED RADICAL NECK DISSECTION) Right 07/12/2022 Laterality: Right; Surgeon: Ricky Bingham MD; [facility] MA[facility] OR KNEE REPLACEMENT Right KNEE [...] the attending physician. This note dictated using [employer] medical voice recognition software. Attempts at proofreading were made, but errors may occasionally still occur. JAVIER Ruano 07/21/22 1219 [facility] 07-21-2022 Emergency department Note Patient presents to the ED for a post of complication. Patient states she has tongue cancer and had a skin graft on from her right thigh on 07/12/22. Patient states since 3 days she had been bleeding from the graft site under her tongue. Patient states she sent pictures via AdLemonst to her doctor and they are afraid the graft is falling off. Patient if alert and oriented x4, VSS. No s/s of distress noted. [facility] 07-17-2022 History of Presen t illness Narrative [...] Thin (IDDSI 0) Carie BETANCOURTLORENA,CNSC, RN Pager #[phone] ENT Speech- Clinical Swallow Evaluation Diet recommendation: Soft and bite sized solids (dysphagia level 6)/ Thin liquids -left sided bolus placement -intermittent liquid wash as needed Discharge recommendation: Recommend ongoing ST services at discharge. Please schedule pt with ENT CALENDERING SUPERVISOR in conjunction with ENT MD follow-up appointment for clinical swallowing evaluation vs FEES. Therapy Indicated During Inpatient Stay: No Inpatient Frequency: Inpatient CALENDERING SUPERVISOR will s/o History: 67 y.o. female admitted [...] unable to respond. 07/17/22 Administration and Scoring [facility] Kind of Place Name of Hospital Month [...] and is implementing strategies independently, so inpatient CALENDERING SUPERVISOR services are no longer warranted. The above was discussed with pt, RN and MD team. Recommendations: Soft and bite sized solids (dysphagia level 6)/ Thin liquids -left sided bolus placement -intermittent liquid wash as needed Care plan: Inpatient CALENDERING SUPERVISOR will s/o ROQUE Loco ENT Speech Pathology Pager: [phone] Charge: Swallow/ Dysphagia Evaluation CPT Code: 97362 PACC notified by PCRAbigail that patient no longer requires C services, referral cancelled. Sonia GEE, RN Post Acute Attacher Discharge Planning- [facility] In[facility] Discharge Note Patient discussed in medical rounds [...] and assistance is needed, please page the vehicle modification technician PCRM at [phone]. Final Discharge Planning Discharge Disposition: Home CM/SW [...] SND levels I-V, STSG PLAN Airway (trach/stomavent): [place] Diet: NPO with tube feeds until follow up with ARMANDO in 1 week --> may have sips of water/ice chips when bolster taken down POD5 Drains: 2 right neck RWR Sutures/cody: Dermabwally tomas, STSG site (puracol/tegederm), intraoral bolster down POD5 Antibiotics: Unasyn while bolster in x 5 days Consults: PRN PT/OT/CALENDERING SUPERVISOR: PRN Anticoagulation: lovenox, ASA 81 (home meds) [...] - Head & Neck Surgery Personal pager [phone] [facility] Home Health Following Physician Confirmation Following Physician:Ricky Bingham MD Physician Service: Surgery Agreeable to Follow: Yes Spoke with: verified with pcrm PACC Coordination Note Patient received in handoff from sample case porter for potential homecare services. Will continue to follow with sample case porter for plan of care. Sonia GEE, RN Post Acute Attacher Discharge Planning for Home Health Options for discharge have been discussed with patient and family. Patient and family agree the post hospital care needs will best met at home with home care services. Background Information/ Hospital Overview: Patient is 67 years old and is s/p Right partial glossectomy, Right Selective Neck Dissection, STSG Services needed: Half-Way Half-Way Needs Nursing assessment Teaching- dobhoff/enteral care Line [...] and will be willing to work with [facility] to obtain education if there are complex teaching services needed for the patient. Physician following for home care orders / phone: Ricky Bingham MD [phone] COVID-19 Vaccination Record: Has patient been vaccinated? Yes Brand: Pfizer Dates Given: 07/01/22 Discharge Planning- [facility] Inpatient PCR Discharge Note Patient discussed in [...] and assistance is needed, please page the vehicle modification technician PCRM at [phone]. Final Discharge Planning Discharge Disposition: Home CM/SW [...] SND levels I-V, STSG PLAN Airway (trach/stomavent): [place] Diet: NPO with tube feeds until follow up with ARMANDO in 1 week --> may have sips of water/ice chips when bolster taken down POD5 Drains: 2 right neck RWR Sutures/cody: Dermabond prineo, STSG site (puracol/tegederm), intraoral bolster down POD5 Antibiotics: Unasyn while bolster in x 5 days Consults: PRN PT/OT/CALENDERING SUPERVISOR: PRN Anticoagulation: lovenox, ASA 81 (home meds) [...] - Head & Neck Surgery Personal pager [phone] Summary: Psychosocial Assessment Psychosocial Assessment Per chart review, patient is a 67 y.o. female POD 3 s/p R partial glossectomy, R SND levels I-V, STSG SW met with patient to introduce self, explain social service technician role during inpatient stay, and answer patient questions. Patient was alert and oriented x4 and agreeable to SW visit. Information Source Information Source: patient , review of medical record Information Source Name: [place] Source Number: [phone] Contact Information Sanitarian Name: Regina COOPER, [facility] Sanitarian's Social Work Contact Name: Ehtel ZAFAR Juvenile Court Liaison's Phone Number: [phone] Referral Source: admission list Living Environment Lives [...] Amanda Importance: Sw made patient aware of ammonia box operator services. Patient Coping/Stress Concerns Patient Coping/Stress [...] that without completed document on file, per [place], daughter, Sandra , (ph:[phone]) would be their Legal NOK for decision [...] needed during inpatient stay. Ethel COOPER-Monik Clinical Juvenile Court Liaison Pager: [phone]: [phone] For Evening (4:30pm-8am) and Weekend SW needs please call [phone] or page [phone] Introduced self and role of the ammonia box operator to patient, Astrid. Astrid expressed appreciation for the visit and reported no spiritual care needs at this time. I expressed support for Astrid and provided information regarding 05/05 ammonia box operator availability and how to contact. If spiritual/emotional needs should arise, please page [phone]. Chaplains are available in-house 24 hours a day and 7 days a week. For urgent matters in the [place], please page [phone]. If the request is not urgent, please enter a consult. Consults are responded to within 24 hours. Panchito Chase M.Div, [facility] Staff Medical Staff ManagerCaleb & [facility] 05/05 On-Call Pager: [phone] 07/15/22 1020 Clinical Encounter Type Visited With Patient Visit Type Introduction Pastoral Time Spent 15 min Referral Other (See Comment) (Rounding) Interventions Provided Active listening;Supportive presence U.[place]. Senator Education U.[place]. Senator Service Available Yes Educated Patient Plan of [...] SND levels I-V, STSG PLAN Airway (trach/stomavent): [place] Diet: NPO with tube feeds until follow up with ARMANDO in 1 week --> may have sips of water/ice chips when bolster taken down POD5 Drains: 2 right neck RWR Sutures/cody: Dermabond prineo, STSG site (puracol/tegederm), intraoral bolster down POD5 Antibiotics: Unasyn while bolster in x 5 days Consults: PRN PT/OT/CALENDERING SUPERVISOR: PRN Anticoagulation: lovenox, ASA 81 (home meds) [...] - Head & Neck Surgery Personal pager [phone] Head & Neck Surgery Daily Progress Note [...] SND levels I-V, STSG PLAN Airway (trach/stomavent): [place] Diet: NPO with tube feeds until follow up with ARMANDO in 1 week --> may have sips of water/ice chips when bolster taken down POD5 Drains: 2 right neck RWR Sutures/cody: Dermabond prineo, STSG site (puracol/tegederm), intraoral bolster down POD5 Antibiotics: Unasyn while bolster in x 5 days Consults: PRN PT/OT/CALENDERING SUPERVISOR: PRN Anticoagulation: lovenox, ASA 81 (home meds) [...] Surgery ENT [place] Floor (First Call) Pager [phone] Personal pager [phone] Head & Neck Surgery Daily Progress Note [...] SND levels I-V, STSG PLAN Airway (trach/stomavent): [place] Diet: NPO with tube feeds until follow up with ARMANDO in 1 week --> may have sips of water/ice chips when bolster taken down POD5 Drains: 2 right neck RWR Sutures/cody: Dermabond prineo, STSG site (puracol/tegederm), intraoral bolster down POD5 Antibiotics: Unasyn while bolster in x 5 days Consults: PRN PT/OT/CALENDERING SUPERVISOR: PRN Anticoagulation: lovenox, ASA 81 (home meds) [...] Surgery ENT [place] Floor (First Call) Pager [phone] Personal pager [phone] NUTRITION ASSESSMENT/CONSULT Nutrition Recommendations and Plan of [...] or up to date coverage please see [employer] schedule for Dietitian Certified Physical Therapist Assistant for the appropriate unit for Friday-Friday coverage [...] is identified in the distal stomach. BM: CARE ADVOCATE Urine: 1925mL 07/12 Skin: Rosales Score: 20 Active Wounds: Incision (Adult, Pediatric) 07/12/22 0743 tongue (1) Incision (Adult, Pediatric) 07/12/22 0759 Right neck (1) Wound (Adult, Pediatric) 07/12/22 0951 Right upper thigh graft (1) Edema- none Estimated Nutrition Needs: Based on IBW (50kg) Estimated Kcals Needs: 8802-9745 kcals (32-36kcals/kg) Estimated Pro Needs: 75-100g Pro (1.5-2g/kg) Estimated Fluid Needs: Per MD Malnutrition Statement as evidenced by clinical characteristics: Indications of Malnutrition: No malnutrition based on the AND/ASPEN Malnutrition Criteria [address], LD Pager: [phone] Initial Assessment Referral Information Arrived From: operating room Readmission Information Was patient readmitted within 30 Days?: No Information Source Information Source: patient , review of medical record Information Source Name: Patient and daughter Outpatient Providers Outpatient Providers Updated In IHIS: No Contact Information Sanitarian/SW Added to Care Team: Yes This Entry Level Administrative Assistant is Primary Sanitarian/SW: Yes Sanitarian Name: KENNETH Parikh ACM-SW Sanitarian's Social Work Contact Name: KENNETH Schulte Juvenile Court Liaison's Living Environment Lives With: alone Living Arrangements: [...] No Initial Discharge Planning Home Care Services (CARE ADVOCATE): No Home Therapies (CARE ADVOCATE): None DME (CARE ADVOCATE): None Medical Supplies (CARE ADVOCATE): None Patient Goal for Discharge: Return home [...] Source Name: Patient and daughter Contact Information Sanitarian/SW Added to Care Team: Yes This Entry Level Administrative Assistant is Primary Sanitarian/SW: Yes Sanitarian Name: KENNETH Parikh, CARMELO-WILLIE Sanitarian's Social Work Contact Name: KENNETH Schulte Juvenile Court Liaison's Living Environment Lives With: alone Living Arrangements: [...] 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 She is aware that she will purchase [...] team updated. documented in this encounter [facility] Referral ID Status Reason Start Date Expiration Date Visits Re quested Visits Authorized * (Routine) - New Request Specialty Diagnoses / Procedures Referred By Contac t Referred To Contact Procedures PLATELET MONITORING PER PROTOCOL Ricky Bingham MD [address] [place] [address] Referral ID Status Reason Start Date Expiration Date V isits Requested Visits Authorized [id number] New Request 07/12/2022 08/06/2023 1 1 * (Routine) - New Request Specialty Diagnoses / Procedures Referred By Contac t Referred To Contact Procedures DVT/VTE RISK ASSESSMENT Ricky Bingham MD [address] [place] [address] Referral ID Status Reason Start Date Expiration Date V isits Requested Visits Authorized [id number] New Request 07/12/2022 08/06/2023 1 1 * (Routine) - New Request Specialty Diagnoses / Procedures Referred By Contac t Referred To Contact Procedures DVT/VTE RISK ASSESSMENT Ricky Bingham MD [address] [place] [address] Referral ID Status Reason Start Date Expiration Date V isits Requested Visits Authorized [id number] New Request 07/12/2022 08/06/2023 1 1 [facility]10-04-2022 Note* Nursing Notes - Divya Jauregui RN - 07/16/2022 7:27 PM EDT Aruna MURCIA that pt pulled her dubhuff [facility]10-04-2022 Miscellaneous Notes* Nursing Notes - Divya Jauregui [...] SND levels I-V, STSG PLAN Airway (trach/stomavent): [place] Diet: NPO with tube feeds until follow up with ARMANDO in 1 week --> may have sips of water/ice chips when bolster taken down POD5 Drains: 2 right neck RWR Sutures/cody: Dermabond prineo, STSG site (puracol/tegederm), intraoral bolster down POD5 Antibiotics: Unasyn while bolster in x 5 days Consults: PRN PT/OT/CALENDERING SUPERVISOR: PRN Anticoagulation: lovenox, ASA 81 (home meds) [...] - 07/12/2022 10:33 AM EDT Astrid Dumont ([id number]) PRE OPERATIVE DIAGNOSIS Malignant neoplasm of anterior [...] - Fellow ANESTHESIOLOGIST Anesthesiologist: Odin Mckeon MD INSTRUCTOR DRAMATIC ARTS: Yrn Cavanaugh APRN-INSTRUCTOR DRAMATIC ARTS SURGICAL STAFF Custody Assistant: Astird Knowles RN Relief Custody Assistant: Byron aSlcedo RN Relief Scrub: Josefina Blair Scrub Person: [...] 2022 10:33 AM [facility]* Nursing Notes - Karen Hong RN [...] and give any meds. thanks Karen Gray [facility]10-01-2022 Note* Plan of Care - Nina Beck [...] lab values. 4. RD to follow up [facility]09-30-2022 Hospital Discharge instructions* Discharge Instructions* KENNETH Parikh - 07/12/2022 3:10 PM EDT Images from the original note were not included. Evening and Weekend Contacts If you have questions or concerns during evening, weekend, or holiday hours, please call: -[facility] and The [facility] base wad operator adjuster at [phone]. Ask the base wad operator adjuster to page the on-call doctor for Ear, Nose and Throat, the service that was responsible for your care while you were in the hospital. If you having an emergency, call 911. Medical Issues: For clinical questions or medical concerns during regular business hours, please call [phone] and you will be routed to your physician's team. For discharge planning questions/concerns, please contact: KENNETH Tapia, CARMELO-WILLIE (Patient Care Fbi Field Agent) [phone] ANISHA Rocha, CARMELO (Patient Care Fbi Field Agent) [phone] KENNETH Davenport (Juvenile Court Liaison) [phone] Your Sanitarian (PCRM) has arranged your appointments for follow [...] a two- minute automated telephone call from [facility]. This call will come from [phone]. If you are unable to answer or do not receive the automated call, please call [phone] to complete this important evaluation. By answering [...] all. Do not do the following: - brand inspector such as vacuuming, or heavy cleaning - [...] open to air. [facility]* Nursing Notes - Barbara Young RN - 07/12/2022 2:52 PM EDT Ms. Dumont is admitted to 2110 from PACU at this time and her skin is WDL except for oral and neckincisions and wound drains. Barbara Young RN 07/12/2022 [facility] Note* Plan of Care - Tayolr Burns MD - 07/12/2022 10:40 AM EDT EJ/PARAS Astrid Dumont POD# 0 Surgeon: Zachery Diagnosis: R posterolateral tongue SCC Procedure: R partial glossectomy, R SND levels I-V, STSG PLAN Airway (trach/stomavent): [place] Diet: NPO with tube feeds until follow up with ARMANDO in 1 week --> may have sips of water/ice chips when bolster taken down POD5 Drains: 2 right neck RWR Sutures/cody: Dermabond prineo, STSG site (puracol/tegederm), intraoral bolster down POD5 Antibiotics: Unasyn while bolster in x 5 days Consults: PRN PT/OT/CALENDERING SUPERVISOR: PRN Anticoagulation: lovenox, ASA 81 (home meds) [...] on POD#5 to home with tube feeds [facility] Work Phone: [phone] 481-629109-30-2022 Note* Brief Op Note - Taylor Burns MD - 07/12/2022 10:33 AM EDT Astrid Dumont ([id number]) PRE OPERATIVE DIAGNOSIS Malignant neoplasm of anterior [...] - Fellow ANESTHESIOLOGIST Anesthesiologist: Odin Mckeon MD INSTRUCTOR DRAMATIC ARTS: Yrn Cavanaugh APRN-INSTRUCTOR DRAMATIC ARTS SURGICAL STAFF Custody Assistant: Astrid Knowles RN Relief Custody Assistant: Byron Salcedo RN Relief Scrub: Josefina Blair [...] Burns MD July 12, 2022 10:33 AM [facility]09-30-2022 History and physical note* Yrn Nelson MD [...] extremities. Extremities: JEAN x 4, Warm. Skin: Deal, warm and dry. Psychiatric: Normal mood and [...] MD Otolaryngology-Head and Neck Surgery, PGY-3 *7118 [facility]09-30-2022 History and physical note* Yrn Nelson MD [...] extremities. Extremities: JEAN x 4, Warm. Skin: Deal, warm and dry. Psychiatric: Normal mood and [...] Neck Surgery, PGY-3 *7118 [facility] Nurse Surgical operation note* Nkechi Asif RN - 07/12/2022 5:27 AM EDT Pt denies history of chemo and radiation. Pt has metal or foreign objects in body. Denies history of seizures. [facility]09-30-2022 Nurse Note* Nkechi Asif RN - 07/12/2022 5:27 AM EDT Pt denies history of chemo and radiation. Pt has metal or foreign objects in body. Denies history of seizures. [facility] History and physical note* Julia Rae MD - 07/03/2022 9:15 AM EDT Images from the original note were not included. History of Present Illness Ms. Dumont is a 67 y.o. female being evaluated in [facility] due to her medical condition(s) , which [...] dyspnea, pedal edema, dizziness. Denies history of CAD/TN, CHF, arrhythmia, CVA. She does not see a Visual Inspector and has not been diagnosed with heart disease. She has not needed any recent cardiac testing. Functional status---Moderate. She babysits her one year old grandchild. She does her own housekeeping chores/shopping. She denies chest pain and dyspnea. Cardiac testing: ECG(07/03/2022): NSR at 60 bpm. Normal MI interval, normal axis. Cardiovascular A/P - 1. [...] MULTI VITAMIN/MIN PO) Melatonin 5 MG capsule MI ECG, CLINIC PERFORMED Pulse Ox Labs ordered/reviewed. Chem 6 and CBC in acceptable range for planned surgery. T&S reviewed. Anesthesia/Medical Assessment/plan: Reviewed patient's history, assessment & ECG findings. Optimized. Julia Rae MD [facility] [place] [address] [facility] Review of Systems (OSUROS) Review of Systems [...] Activity Alcohol use: Never Drug use: Never [facility]09-21-2022 History and physical note* Julia Rae MD [...] dyspnea, pedal edema, dizziness. Denies history of CAD/TN, CHF, arrhythmia, CVA. She does not see a Visual Inspector and has not been diagnosed with heart disease. She has not needed any recent cardiac testing. Functional status---Moderate. She babysits her one year old grandchild. She does her own housekeeping chores/shopping. She denies chest pain and dyspnea. Cardiac testing: ECG(07/03/2022): NSR at 60 bpm. Normal MI interval, normal axis. Cardiovascular A/P - 1. [...] MULTI VITAMIN/MIN PO) Melatonin 5 MG capsule MI ECG, CLINIC PERFORMED Pulse Ox Labs ordered/reviewed. Chem 6 and CBC in acceptable range for planned surgery. T&S reviewed. Anesthesia/Medical Assessment/plan: Reviewed patient's history, assessment & ECG findings. Optimized. Julia Rae MD [facility] [address] [facility] Review of Systems (OSUROS) Review of Systems [...] Never Drug use: Never [facility] Instructions* Patient Instructions* Cici Crockett LPN - [...] NOT take Herbal Medication (including fish oil ([place]-3), garlic, Glucosamine - Chondroitin ,gingko, ginseng, Vitamin [...] may request more written information from the [employer] for [employer] Information at or email: [email or web address]. Patient Pre-Operative Instructions: Diet Instructions: -NO food [...] site one week prior to surgery. - [place] your teeth and rinse your mouth the [...] given and reviewed. AVS/BLS [facility] History of Present illness Narrative* Heather Sánchez [...] No mass or nodularity. Lymphatics: No lymphadenopathy. CONCRETE BLOCK MASON scope performed today Data Reviewed: No imaging has been performed at this time Pathologic Diagnosis Outside Slides [id number] (06/03/22) B. Right lateral tongue, incisional biopsy: [...] DHT and bolster placement. [facility] Instructions* Patient Instructions* Mushtaq Young RN - 06/13/2022 1:00 PM EDT Images from the original note were not included. Welcome to the Head and Neck Oncology Clinic. We are here to assist you through your care at the [facility] and [facility]. Dr. Ricky Bingham is your Head and Neck Surgical Oncology doctor. It is likely that you will have other cancer doctors to assist with your care. Heather Sánchez PA-C our physician oral surgery assistant who works with Dr. Bingham, will often see you post operatively, as well as alternate visits with Dr. Bingham throughout your care for follow ups. Dr. Bingham's Primary Nurse is Mushtaq Young RN. She can be reached at [phone], and can get in touch quickly with Dr. Bingham and Heather. If not in the office when you call, please contact [phone] and leave a message for the nursing pool. Any scheduling issues will be addressed by the scheduling department at . Here are the resources/team members available to you at [facility] Head and Neck Clinic: Speech and Language Pathologists (CALENDERING SUPERVISOR)- may be asked by Dr. Bingham to [...] possible outcome for your swallowing function. Our CALENDERING SUPERVISOR's and contact phone numbers are below: Jayda Block [phone] Caitlin Sow [phone] Dulce Masterson [phone] Scarlet Desir [phone] Awa Villarreal [phone] Araceli [phone] Jack [phone] Liaison- SHIRLEY Lin and SHIRLEY Maloney are available to assist with transportation and housing issues related to medical appointments. The social service technician also provides counselingand information regarding Advance Directives, End of Life issues, Social Security Disability, and referrals to support groups, and other community agencies. Please let Mauricio or Dr Bingham know if you need these services. You may contact Yesenia at [phone] or Yokasta [phone]. [facility] This is for patients who live in [facility] with a cancer diagnosis. The [facility] can provide rides to appointments, nutritional supplements and other services. It requires that your register for services by speaking with our head and neck social workers. If you are outside of [facility] the social service technician can assist you with what is available in your county. Financial Services-Mu Jarquin and Deedee Olmstead are our financial counselors who can assist your at your appointments or call them at [phone]. Dog Raiser-Currently an order must be placed by Dr. Bingham to have to see the Dog Raiser, Arianne Lawor Lia Walters. If you are already seeing Arianne or Lia Mark their direct phone number is [phone]. A Pain Management Clinic Team is available [...] to fill your prescription before you leave [place]. We are committed to providing you quality [...] one in your area or at [facility] at [phone] to make an appointment. Family Medical Leave paperwork is available through your human resources department. Please call human resources and have them fax paperwork to Mushtaq Young RN [phone]. Please allow 2 weeks for completion of FMLA paperwork. Pastoral Care-is able to assist you with your spiritual needs. If you wish to see the ammonia box operator, please let your oncology team know so that they can arrange this. Financial Services- financial counselor at can be reached at [phone]. Integrative Medicine Therapy -these are complementary therapies used in addition to your cancer treatment to assist with anxiety, pain, nausea, poor sleep, and exhaustion. If you wish this additional therapy please contact [email or web address] to set up an appointment. Youmay also request this in the same way if you are inpatient or ask your nurse. THERE IS NO COST FOR THIS SERVICE. Fertility Presevation and Reproductive Health-[facility] offers fertility preservation. This requires a referral from your doctor. If you are interested in sperm banking, egg freezing or other optionsplease let your doctor know before you have chemotherapy or radiation. For information options please call [phone]. [facility] - It is conveniently located on the [facility] campus on the conference level (CL) of the [facility] and [facility],next door to [facility] and near [facility]. To learn more about [facility], you can visit it on weekdays from 8 a.m. - 9 p.m. and on weekends from 9 a.m. - 6 p.m. [employer]- is a communication tool used through the [...] this must be done in person. Our medical office receptionist assistant staff can assist you to get a password that can be changed when after you log on the first time. IMPORTANT REMINDER: This portal is only for NON-urgent information. If you have urgent information about your condition please call ANISHA Martínez at [phone]. THERE IS A NEW [employer] ARMANDO FOR SMART PHONES. USE YOUR ARMANDO STORE AND SEARCH [employer], download the armando and follow the prompts to set up the [facility] format. Through this ARMANDO, you will be [...] may request more written information from the [facility] at or email: [email or web address]. Neck Dissection What is a Neck Dissection? [...] may request more written information from the [facility] at or email: The [employer] . Shoulder Exercise after a Neck Dissection After [...] tube. It is a metal / plastic (grand traverse one) trach tube that has the following [...] a cuff. _ Cuff Inflation Tube with Manual Training Teacher Balloon: The air is inserted through this tube when you inflate the cuff. The commercial airplane pilot balloon inflates when the cuff inside is inflated. _ Talk to your doctor or health care team if you have any questions. You may request more written information from the [employer] for [employer] Information at or email: [email or web address]. Nasogastric (NG) Tube A nasogastric tube (NG [...] a dry erase board. 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, part unspecified [facility] Diagnosis Pre-operative examination for internal medicine- [...] tongue, part unspecified [facility] Diagnosis 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, part unspecified Postoperative state Other postprocedural status [facility] Diagnosis Other postoperative complication of skin- Primary S/P partial glossectomy Other postprocedural status [facility] Diagnosis 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- 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, part unspecified [facility] Diagnosis 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- 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, part unspecified History of hemorrhage of tongue [facility] Diagnosis 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- 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, part unspecified [facility] Diagnosis 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- 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, part unspecified [facility] N[facility]ative* Auth/Cert 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 [C02.3] Procedures MI PART REMOVAL TONGUE,<1/2 MI SPLIT GRFT,HEAD,FAC,HAND,FEET <100SQCM MI REMOVAL NODES, NECK,CERV MOD RAD GLOSSECTOMY LESS THAN 1/2 TONGUE GRAFT SKIN SPLIT THICKNESS EAR EYELID FACE MOUTH ORBIT (STSG) LYMPHADENECTOMY CERVICAL (MODIFIED RADICAL NECK DISSECTION) Ricky Bingham MD [address] [place] [address] [facility] [address] [place] [address] Referral ID Status Reason Start Date Expiration Date Visits Re quested Visits Authorized [id number] 1 1 [facility] Instructions Instruction Description Start Date Patient advised [...] Sánchez PA-C [address] [place] [address] Referral ID Status Reason Start Date Expiration Date V isits Requested Visits Authorized [id number] New Request 06/13/2022 07/08/2023 1 1 Specialty Diagnoses / Procedures Referred By Contac t Referred To Contact Oncology Diagnoses 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 Heather Sánchez PA-C [address] [place] [address] Referral ID Status Reason Start Date Expiration Date V isits Requested Visits Authorized [id number] New Request 06/13/2022 07/08/2023 1 1 Specialty Diagnoses / Procedures Referred By Contac t Referred To Contact Diagnoses 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 Procedures CT CHEST WITH CONTRAST CHG DIAGNOSTIC COMPUTED TOMOGRAPHY THORAX W/CONTRAST Heather Sánchez, PA-C [address] [place] [address] Referral ID Status Reason Start Date Expiration Date V isits Requested Visits Authorized [id number] New Request 06/13/2022 07/08/2023 1 1 Specialty Diagnoses / Procedures Referred By Contac t Referred To Contact Diagnoses 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 Procedures CT NECK WITH CONTRAST MI CT NECK TISSUE CONTRAST Heather Sánchez, PA-C [address] [place] [address] Referral ID Status Reason Start Date Expiration Date V isits Requested Visits Authorized [id number] New Request 06/13/2022 07/08/2023 1 1 Referral ID Status Reason Start Date Expiration Date V isits Requested Visits Authorized [id number] Pending Review 06/13/2022 07/08/2023 1 1 Specialty Diagnoses / Procedures Referred By Contac t Referred To Contact Procedures DIRECT ADMIT REQUEST Kailey Art, SPINNING MACHINE OPERATOR-CONTINUOUS WELD PIPE MILL SUPERVISOR [address] [facility] [address] [place] [address] Referral ID Status Reason Start Date Expiration Date V isits Requested Visits Authorized [id number] New Request 07/24/2022 08/18/2023 1 1 Specialty Diagnoses / Procedures Referred By Contac t Referred To Contact Diagnoses 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 Heather Sánchez, PA-C [address] [place] [address] Marlen Reeves, DDS [address] [place] [address] Referral ID Status Reason Start Date Expiration Date V isits Requested Visits Authorized [id number] Schedule Outgoing - Transfer of Care 11/20/2022 12/15/2023 1 1 Summary Purpose Additional Source Comments Reason for Visit (unrecogniz ed section and content) Specialty Diagnoses / Procedures Referred By Contac t Referred To Contact Diagnoses 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 Procedures CT CHEST WITH CONTRAST CHG DIAGNOSTIC COMPUTED TOMOGRAPHY THORAX W/CONTRAST Heather Sánchez PA-C [address] [place] [address] Referral ID Status Reason Start Date Expiration Date V isits Requested Visits Authorized [id number] Pending Review 06/13/2022 07/08/2023 1 1 Reason Comments Pre-operative Consultation Specialty Diagnoses / Procedures Referred By Contac t Referred To Contact PreOp Diagnoses 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 Heather Sánchez PA-C [address] [place] [phone] Referral ID Status Reason Start Date Expiration Date V isits Requested Visits Authorized [id number] Pending Review 06/13/2022 07/08/2023 1 1 Reason Comments Post-Op Problem Specialty Diagnoses / Procedures Referred By Contac t Referred To Contact [facility] [address] [place] [address] [facility] [address] [place] [address] Referral ID Status Reason Start Date Expiration Date Visits Re quested Visits Authorized [id number] 1 1 Reason Comments Post Op Visit Reason Comments Follow-up Reason Comments Follow-up Care Teams (unrecognized sec tion and content) Reject Opener Relationship Specialty Start Date End Date Duong Durham MD [address] [facility] [address] [place] [phone] PCP - General Family Medicine 06/13/22 Dr Myles Gupta Referring Provider Dentistry 07/03/22 Reject Opener Relationship Specialty Start Date End Date Duong Durham MD [address] [place] [address] PCP - General Family Medicine 06/13/22 Dr Myles Gupta Referring Provider Dentistry 07/03/22 Reject Opener Relationship Specialty Start Date End Date Duong Durham MD [address] [place] [address] PCP - General Family Medicine 06/13/22 Dr Myles Gupta Referring Provider Dentistry 07/03/22 Reject Opener Relationship Specialty Start Date End Date Duong Durham MD [address] [place] [address] PCP - General Family Medicine 06/13/22 Dr Myles Gupta Referring Provider Dentistry 07/03/22 Reject Opener Relationship Specialty Start Date End Date Duong Durham MD [address] [place] [address] PCP - General Family Medicine 06/13/22 Dr Myles Gupta Referring Provider Dentistry 07/03/22 Reject Opener Relationship Specialty Start Date End Date Duong Durham MD [address] [place] [address] PCP - General Family Medicine 06/13/22 Dr Myles Gupta Referring Provider Dentistry 07/03/22 Reject Opener Relationship Specialty Start Date End Date Duong Durham MD [address] [place] [address] PCP - General Family Medicine 06/13/22 Dr Myles Gupta Referring Provider Dentistry 07/03/22 Reject Opener Relationship Specialty Start Date End Date Duong Durham MD [address] [place] [phone] PCP - General Family Medicine 06/13/22 Dr [...] Saavedra RN)[phone] (See Alternative - Provider: Kailey rGant, RN)2018 (See Alternative - Provider: Divya Jauregui, [...] 50% needed, contact pharmacy or obtain from [facility] cart ++ docusate (COLACE) capsule 100 [...] glucose is greater than 200md/dl, then notify Police Lieutenant Patrol. And BLOOD GLUCOSE (POC DEVICE) (CANCELED) Routine, [...] at 0742, Until Specified
Who to Notify: Police Lieutenant Patrol
For all Blood Glucose LESS THAN 80 mg/dl, notify Police Lieutenant Patrol after treatment per Hypoglycemia in Non- Adults [...] BE BASED ON THE PRIMARY CLINICAL RECORDS. [facility]. provides no warranty or guarantee of the accuracy or completeness of information in this document.
--- NOTE | 2023-12-20 08:55 | US_ITS ---
STUDY: ABDOMINAL ULTRASOUND - RIGHT UPPER QUADRANT; ELASTOGRAPHY REASON FOR VISIT: Female, 68 years old. NAFLD TECHNIQUE: Ultrasound evaluation of the right upper quadrant was performed with real-time and static rawls-scale imaging. Point quantification shear wave elastography was performed (imgix). TECHNICAL QUALITY: Adequate. COMPARISON: Comparison is made with prior study dated March 26, 2021. FINDINGS: Liver: The liver is enlarged and measures 20.7 cm. There is increased echogenicity consistent with fatty infiltration. The bile ducts are within normal limits. There is hepatic color flow. The direction of portal flow is hepatopetal. There is no demonstrated mass lesion. Median liver stiffness measured 8.1 kPa. Gallbladder: Normal distended gallbladder. The gallbladder wall measures 1.7 mm. There is a negative sonographic Deutsch''s sign. There is no pericholecystic fluid. There are no gallstones. Common Bile Duct (C.B.D.): The common bile duct measures 4.0 mm. Pancreas: There is normal echogenicity of the visualized pancreas. There is no demonstrated pancreatic mass or cyst. Right Kidney: Normal size of the right kidney. The right kidney measures 14.2 cm x 5.3 cm x 4.9 cm. Normal renal cortex. The right cortex measures 1.1 cm. There is a 2.3 cm x 2.1 signed by 1.9 cm right renal cyst. There is no right hydronephrosis. There are 3 subcentimeter nonobstructive calculi in the right kidney. The largest measures 6 mm x 7 mm x 2 mm. US/ABD Limited w/ Elastography IMPRESSION: 1. Liver stiffness measures 8.1 kPa compatible with F2-F3 (Mild to moderate liver fibrosis) Metavir score. 2. Hepatomegaly. 3. Right renal cyst. 4. Nonobstructive right intrarenal calculi. Electronically Signed: Jose Carr MD at 14:05 EDT ,
== END | disposition home or self-care (01) ==
LOC: US 08:43
PROVIDERS: PCP Family Medicine; Referring Provider Internal Medicine; Visit Provider Internal Medicine
DX: K76.0 Fatty (change of) liver, not elsewhere classified (principal)
CPT/HCPCS: 76705; 76981

== ENCOUNTER 2023-12-22 05:26 | Day surgery (SDC) | payer MEDICARE, OTHER, SELFPAY ==
--- OUTSIDE RECORDS SUMMARY | 2023-12-22 05:43 | XMS RPT_ITS | CCD ---
Author Name Unknown Address [address] [place] [address] Organization [facility] Care Team Providers Care Employment Instructional Associate Name Role Phone Maxime Astorga MD Unavailable [phone] Duong Durham MD Primary Care Provider [phone] Duong Durham MD Primary Care Provider Duong Durham MD Primary Care Provider DUONG [...] Facility (1 source) sulfacetamide Drug Allergy 8 [facility] Work Phone: (9 sources) Sulfonamides (Antibiotic) Propensity to adverse reactions to drug 2 Rash [facility] (9 sources) *Seasonal Propensity to adverse reactions to substance 2 [facility] Medications Current Medications Medication Drug Class(es) [...] 36.03 kg/m2 Ricky Bingham MD Work Phone: [facility] 06-25-2023 13:50-0400 Body temperature 97.5 [degF] Ricky Bingham MD Work Phone: [facility] 06-25-2023 13:50-0400 Body weight 89.36 kg Ricky Bingham MD Work Phone: [facility] 06-25-2023 13:50-0400 Diastolic blood pressure 58 mm[Hg] Ricky Bingham MD Work Phone: [facility] 09-13-2023 13:50-0400 Heart rate 85 /min Ricky Bingham MD Work Phone: [facility] 06-25-2023 13:50-0400 Respiratory rate 16 /min Ricky Bingham MD Work Phone: [facility] 06-25-2023 13:50-0400 SaO2% (BldA) [Mass fraction] 98 % Ricky Bingham MD Work Phone: [facility] 06-25-2023 13:50-0400 Systolic blood pressure 110 mm[Hg] Ricky Bingham MD Work Phone: [facility] 11-20-2022 13:54-0500 Body mass index (BMI) [Ratio] 34.88 kg/m2 Heather Gonzalo PA-C Work Phone: [facility] 11-20-2022 13:54-0500 Body temperature 96.21 [degF] Heather Gonzalo PA-C Work Phone: [facility] 11-20-2022 13:54-0500 Body weight 86.5 kg Heather Gonzalo PA-C Work Phone: [facility] 11-20-2022 13:54-0500 Diastolic blood pressure 71 mm[Hg] Heather Crabtreelman PA-C Work Phone: [facility] 11-20-2022 13:54-0500 Heart rate 71 /min Heather Gonzalo PA-C Work Phone: [facility] 11-20-2022 13:54-0500 Respiratory rate 16 /min Heather Crabtreelman PA-C Work Phone: [facility] 11-20-2022 13:54-0500 SaO2% (BldA) [Mass fraction] 98 % Heather Crabtreelman PA-C Work Phone: [facility] 11-20-2022 13:54-0500 Systolic blood pressure 130 mm[Hg] Heather Sánchez PA-C Work Phone: [facility] 08-21-2022 14:38-0500 Body mass index (BMI) [Ratio] 34.02 kg/m2 Ricky Bingham MD Work Phone: [facility] 08-21-2022 14:38-0500 Body temperature 96.01 [degF] Ricky Bingham MD Work Phone: [facility] 08-21-2022 14:38-0500 Body weight 84.37 kg Ricky Bingham MD Work Phone: [facility] 08-21-2022 14:38-0500 Diastolic blood pressure 60 mm[Hg] Ricky Bingham MD Work Phone: [facility] 08-21-2022 14:38-0500 Heart rate 73 /min Ricky Bingham MD Work Phone: [facility] 08-21-2022 14:38-0500 Respiratory rate 18 /min Ricky Bingham MD Work Phone: [facility] 08-21-2022 14:38-0500 SaO2% (BldA) [Mass fraction] 98 % Ricky Bingham MD Work Phone: [facility] 08-21-2022 14:38-0500 Systolic blood pressure 123 mm[Hg] Ricky Bingham MD Work Phone: [facility] 07-24-2022 14:52-0400 Body mass index (BMI) [Ratio] 32.89 kg/m2 Ricky Bingham MD Work Phone: [facility] 07-24-2022 14:52-0400 Body temperature 96.49 [degF] Ricky Bingham MD Work Phone: [facility] 07-24-2022 14:52-0400 Body weight 81.56 kg Ricky Bingham MD Work Phone: [facility] 07-24-2022 14:52-0400 Diastolic blood pressure 75 mm[Hg] Ricky Bingham MD Work Phone: [facility] 07-24-2022 14:52-0400 Heart rate 84 /min Ricky Bingham MD Work Phone: [facility] 07-24-2022 14:52-0400 Respiratory rate 16 /min Ricky Bingham MD Work Phone: [facility] 07-24-2022 14:52-0400 SaO2% (BldA) [Mass fraction] 93 % Ricky Bingham MD Work Phone: [facility] 07-24-2022 14:52-0400 Systolic blood pressure 115 mm[Hg] Ricky Bingham MD Work Phone: 9(090)577-757069 [address] 07-22-2022 09:38-0400 Body temperature 98.1 [degF] Noemi Ovalle MD Work Phone: 6(772)136-910901 [place] [address] 07-22-2022 09:38-0400 Diastolic blood pressure 59 mm[Hg] Noemi Ovalle MD Work Phone: 6(745)895-175701 [place] [address] 07-22-2022 09:38-0400 Heart rate 70 /min Noemi Ovalle MD Work Phone: 3(291)141-376601 [place] [address] 07-22-2022 09:38-0400 Respiratory rate 17 /min Noemi Ovalle MD Work Phone: 5(368)915-059301 [place] [address] 07-22-2022 09:38-0400 SaO2% (BldA) [Mass fraction] 97 % Noemi Ovalle MD Work Phone: 3(178)626-823501 [place] [address] 07-22-2022 09:38-0400 Systolic blood pressure 111 mm[Hg] Noemi Ovalle MD Work Phone: [facility] 07-21-2022 10:47-0400 Body height 157.5 cm Noemi Ovalle MD Work Phone: [facility] 07-17-2022 08:00-0400 Body temperature 98.91 [degF] Ricky Bingham MD Work Phone: [facility] 07-17-2022 08:00-0400 Diastolic blood pressure 64 mm[Hg] Ricky Bingham MD Work Phone: [facility] 07-17-2022 08:00-0400 Heart rate 66 /min Ricky Bingham MD Work Phone: [facility] 07-17-2022 08:00-0400 Respiratory rate 16 /min Ricky Bingham MD Work Phone: [facility] 07-17-2022 08:00-0400 SaO2% (BldA) [Mass fraction] 98 % Ricky Bingham MD Work Phone: [facility] 07-17-2022 08:00-0400 Systolic blood pressure 142 mm[Hg] Ricky Bingham MD Work Phone: [facility] 07-12-2022 14:25-0400 Body height 157.5 cm Ricky Bingham MD Work Phone: [facility] 07-12-2022 14:25-0400 Body mass index (BMI) [Ratio] 35.48 kg/m2 Ricky Bingham MD Work Phone: [facility] 07-12-2022 14:25-0400 Body weight 88 kg Ricky Bingham MD Work Phone: [facility] 07-03-2022 12:14-0400 Body height 162.6 cm Heather Sánchez PA-C Work Phone: [facility] 07-03-2022 12:14-0400 Diastolic blood pressure 66 mm[Hg] Heather MCKEON-C Work Phone: [facility] 07-03-2022 12:14-0400 Heart rate 71 /min Heather Sánchez PA-C Work Phone: [facility] 07-03-2022 12:14-0400 Systolic blood pressure 125 mm[Hg] Heather MCKEON-C Work Phone: [facility] 07-03-2022 09:08-0400 Body height 162.6 cm Julia Rae MD Work Phone: 3(974)205-100689 [address] 07-03-2022 09:08-0400 Body mass index (BMI) [Ratio] 33.13 kg/m2 Julia Rae MD Work Phone: 3(536)967-595489 [address] 07-03-2022 09:08-0400 Body temperature 97.59 [degF] Julia Rae MD Work Phone: 4(657)426-155733 [place] [address] 07-03-2022 09:08-0400 Body weight 87.54 kg Julia Rae MD Work Phone: 7(067)393-609289 [address] 07-03-2022 09:08-0400 Diastolic blood pressure 74 mm[Hg] Julia Rae MD Work Phone: [facility] 07-03-2022 09:08-0400 Heart rate 68 /min Julia Rae MD Work Phone: 3(990)798-640933 [place] [address] 07-03-2022 09:08-0400 Respiratory rate 18 /min Julia Rae MD Work Phone: 1(452)193-099589 [address] 07-03-2022 09:08-0400 SaO2% (BldA) [Mass fraction] 96 % Julia Rae MD Work Phone: 3(320)081-177033 [place] [address] 07-03-2022 09:08-0400 Systolic blood pressure 118 mm[Hg] Julia Rae MD Work Phone: [facility] 06-13-2022 12:44-0400 Body height 162.6 cm Ricky Bingham MD Work Phone: [facility] 06-13-2022 12:44-0400 Body mass index (BMI) [Ratio] 33.35 kg/m2 Ricky Bingham MD Work Phone: [facility] 06-13-2022 12:44-0400 Body temperature 97.5 [degF] Ricky Bingham MD Work Phone: [facility] 06-13-2022 12:44-0400 Body weight 88.13 kg Ricky Bingham MD Work Phone: [facility] 06-13-2022 12:44-0400 Diastolic blood pressure 61 mm[Hg] Ricky Bingham MD Work Phone: [facility] 06-13-2022 12:44-0400 Heart rate 67 /min Ricky Bingham MD Work Phone: [facility] 06-13-2022 12:44-0400 Respiratory rate 20 /min Ricky Bingham MD Work Phone: [facility] 06-13-2022 12:44-0400 SaO2% (BldA) [Mass fraction] 95 % Ricky Bingham MD Work Phone: [facility] 06-13-2022 12:44-0400 Systolic blood pressure 129 mm[Hg] Ricky Bingham MD Work Phone: [facility] NEGATED: Highlighted [id number] 08:07-0400 BMI (Body Mass Index) 37.63 kg/m2 [facility] Work Phone: NEGATED: Highlighted [id number] 08:07-0400 BP Diastolic 79 mm[Hg] [facility] Work Phone: NEGATED: Highlighted [id number] 08:07-0400 BP Systolic 121 mm[Hg] Ashley Teddy Crystal [facility] Work Phone: NEGATED: Highlighted [id number] 08:07-0400 Height 157.48 cm Ashley Teddy [facility] Work Phone: NEGATED: Highlighted [id number] 08:07-0400 Height 157 cm Ashley Teddy [facility] Work Phone: NEGATED: Highlighted [id number] 08:07-0400 Pulse (Heart Rate) 73 /min Ashleyya Espinal [facility] Work Phone: NEGATED: Highlighted [id number] 08:07-0400 Weight 92.99 kg Ashleynelsy Espinal [facility] Work Phone: NEGATED: Highlighted [id number] 08:07-0400 Weight 93 kg Ashley Espinal [facility] Work Phone: Encounters Encounter Date Encounter Type Care Provider Facility Start: 06-25-2023 ambulatory RICKY BINGHAM Facility :[facility] Start: 06-25-2023 End: 06-25-2023 Office outpatient visit 15 minutes Ricky Bingham MD Work Phone: Department of Otolaryngology Procedures Date Procedure Procedure Detail Performing Clinician Start: 06-25-2023 Follow-up visit Follow-up RICKY BINGHAM Start: 07-22-2022 Blood count hematocrit Tomasa Aburto [employer]IVE TRUCK TECHNICIAN-DISPATCHER MAINTENANCE Work Phone: Start: 07-21-2022 Glucose measurement, blood Jose Devine MD Work Phone: Start: 07-21-2022 Blood count hematocrit Tomasa Aburto [employer] TRUCK TECHNICIAN-DISPATCHER MAINTENANCE Work Phone: Start: 07-21-2022 Glucose measurement, blood Jose Devine MD Work Phone: Start: 07-21-2022 CBC AND ELECTRONIC DIFF Ilene Jd [employer]IVE TRUCK TECHNICIAN-DISPATCHER MAINTENANCE Work Phone: Start: 07-21-2022 Complete blood count with white cell differential, automated Ilene D [employer] TRUCK TECHNICIAN-DISPATCHER MAINTENANCE Work Phone: Start: 07-21-2022 LT BLUE TOP TUBE Ilene D [employer]IVE TRUCK TECHNICIAN-DISPATCHER MAINTENANCE Work Phone: Start: 07-17-2022 Glucose measurement, blood Ricky Bingham MD Work Phone: Start: 07-17-2022 Glucose measurement, blood Ricky Bingham MD Work Phone: Start: 07-17-2022 Assay of magnesium Chano Bunrs MD Work Phone: Start: 07-16-2022 Glucose measurement, [...] Detail Author Start: 03-29-2031 Tetanus vaccination TETANUS [facility] Start: 12-30-2023 End: 12-30-2023 Patient encounter procedure 12/30/2023 2:30 PM EDT Office Visit Department of Otolaryngology [address] [place] [id number] Heather Sánchez, SHREYAS [address] [place] [address] Department of Otolaryngology Start: 07-26-2023 Potassium [Moles/volume] in Serum or Plasma POTASSIUM [facility] Start: 07-17-2023 Potassium [Moles/volume] in Serum or Plasma POTASSIUM [facility] Start: 07-03-2023 Potassium [Moles/volume] in Serum or Plasma POTASSIUM [facility] Start: 06-13-2023 COVID-19 VACCINE ( season) COVID-19 VACCINE ( season) [facility] Start: 06-13-2023 Influenza vaccination INFLUENZA VACCINE (#1) [facility] Start: 02-19-2023 End: 02-19-2023 Patient encounter procedure 02/19/2023 Office Visit Otolaryngology Ricky Bingham MD [address] [place] [id number] Department of Otolaryngology Start: 11-20-2022 End: 11-20-2022 Patient encounter procedure 11/20/2022 Office Visit Otolaryngology Ricky Bingham MD [address] [place] [address] Department of Otolaryngology Start: 07-24-2022 End: 07-24-2022 ambulatory 07/24/2022 Rehab Services Visit Voice & Swallowing Jayda Block, COUNCIL ON AGING DIRECTOR [facility] Start: 07-24-2022 End: 07-24-2022 Patient encounter procedure 07/24/2022 Office Visit Otolaryngology Ricky Bingham MD [address] [place] [address] Department of Otolaryngology Start: 07-22-2022 COVID-19 VACCINE (2 - Pfizer series) COVID-19 VACCINE (2 - Pfizer series) [facility] Start: 07-12-2022 End: 07-12-2022 Cervical lymphadec modified radical neck dsj LYMPHADENECTOMY CERVICAL (MODIFIED RADICAL NECK DISSECTION) 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 Ashley Espinal [facility] Work Phone: Payers Date Payer Category Payer Medicare MEDICARE MEDICAR E A AND B [id number] 2022-Present [address] [place] [address] [id number] 2022 Medicare [id number] 2022 Unknown AARP AARP [id number] 2022-Present [address] [place] [address] [id number] 2022 Unknown [id number] 1955 Unknown [id number] 1955 Unknown [id number] 1955 Unknown [id number] 1955 Unknown [id number] Social History Date Type Detail Facility Start: 06-13-2022 Tobacco smoking status NHIS Never smoked tobacco [facility] Start: 06-13-2022 Tobacco use and exposure Smokeless tobacco non-user [facility] Start: 06-13-2022 End: 08-21-2022 Alcohol intake Lifetime non-drinker (finding) [facility] Start: 1955 Sex Assigned At Not on file [facility] Start: 07-05-2022 End: 07-24-2022 Exposure to SARS-CoV-2 (event) Not sure [facility] Start: 11-10-2022 End: 11-20-2022 Exposure to SARS-CoV-2 (event) Unable to assess [facility] Start: 08-21-2022 End: 06-25-2023 History of Social function [facility] Start: 08-21-2022 End: 06-25-2023 Tobacco use panel [facility] Adolescent depressio n screening assessment 0 [facility] NEGATED: Highlighted rowStart: 06-18-2018 End: 06-18-2018 Alcohol use Never smoker [facility] Work Phone: NEGATED: Highlighted rowStart: 06-18-2018 End: 06-18-2018 Details of drug misuse behavior DRUG USE No [facility] Work Phone: NEGATED: Highlighted rowStart: 06-18-2018 End: 06-18-2018 Assertion Never smoker [facility] Work Phone: Medical Equipment Procedure Code Equipment Code Equipment Origin al Text Equipment Identifier Dates Hemostat Surgice l Powder 3 Grams Absorbable - [id number] Start: 07-12-2022 Clinical Notes 06-13-2022 to [...] glossectomy, Right selective neck dissection, levels I-IV, [place] of split-thickness skin graft 5 cm x [...] daily every morning. First-BLM mouthwash (commercial containing Qbwskwfpw-Ogbrubpuv-Ls/MgHydr-Sim eth) 1 tbsp Q4-6 hrs PRN mouth [...] glossectomy, Right selective neck dissection, levels I-IV, [place] of split-thickness skin graft 5 cm x [...] Continue tumor surveillance. documented in this encounter [facility] 06-25-2023 Instructions Maribel Durán RN - 06/25/2023 2:15 PM EDT Please call Dr. Bingham's nurse at [phone] if you notice any new lumps in head or neck, new onset of difficulty with swallowing, persistent ear pain, hoarseness or new pain in head and neck that does not go away for 2 weeks. For covid vaccine call [phone] ([phone]). 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 First-BLM mouthwash (commercial containing Awjbuozbs-Zrxzxdmht-Yb/MgHydr-Sim eth) 1 tbsp Q4-6 hrs PRN mouth [...] glossectomy, Right selective neck dissection, levels I-IV, [place] of split-thickness skin graft 5 cm x 7 cm from right anterolateral thigh 07/12/23. She is s/p control of oropharyngeal bleed on 07/24. WILLY on exam today. - will trial gabapentin for nerve pain - Clotrimazole dayday X 7 days - Follow up with Dr. Reeves RTC in 3 months or sooner if needed. documented in this encounter [facility] 11-20-2022 Instructions Maribel Durán RN - 11/20/2022 2:15 PM EST Please call Dr. Bingham's nurse at [phone] if you notice any new lumps in head or neck, new onset of difficulty with swallowing, persistent ear pain, hoarseness or new pain in head and neck that does not go away for 2 weeks. For covid vaccine call [phone] ([phone]). documented in this encounter [facility] 11-20-2022 Miscellaneous Notes Addended by: HEATHER SÁNCHEZ on: 11/20/2022 02:45 PM Modules accepted: Orders documented in this encounter [facility] 11-20-2022 Note Addended by: HEATHER SÁNCHEZ on: 11/20/2022 02:45 PM Modules accepted: Orders [facility] 08-21-2022 History of Presen t illness Narrative Images from the original note were not included. Chief Complaint: SCCa Right Postero-Lateral Tongue HPI: 67 yo F, never smoker referred by Dr. Reeves for surgical evaluation of T1N0 SCCa right lateral tongue s/p Right partial glossectomy, Right selective neck dissection, levels I-IV, [place] of split-thickness skin graft 5 cm x [...] N/A; Surgeon: Ricky Bingham MD; [facility] GLOSSECTOMY LESS THAN 1/2 TONGUE Right 07/12/2022 Laterality: Right; Surgeon: Ricky Bingham MD; [facility] OR GRAFT SKIN SPLIT THICKNESS EAR EYELID FACE MOUTH ORBIT (STSG) N/A 07/12/2022 Laterality: N/A; Surgeon: Ricky Bingham MD; [facility] LYMPHADENECTOMY CERVICAL (MODIFIED RADICAL NECK DISSECTION) Right 07/12/2022 Laterality: Right; Surgeon: Ricky Bingham MD; [facility] KNEE REPLACEMENT Right KNEE REPLACEMENT [...] daily every morning. First-BLM mouthwash (commercial containing Bbngucdrf-Zzcaeplwy-Db/MgHydr-Sim eth) 1 tbsp Q4-6 hrs PRN mouth [...] at this time Pathologic Diagnosis Outside Slides [id number] (06/03/22) B. Right lateral tongue, incisional biopsy: [...] glossectomy, Right selective neck dissection, levels I-IV, [place] of split-thickness skin graft 5 cm x [...] documentation where appropriate. documented in this encounter [facility] 08-21-2022 Instructions Trish Castellon RN - 08/21/2022 3:15 PM EST Please call Dr. Bingham's nurse at [phone] if you notice any new lumps in head or neck, new onset of difficulty with swallowing, persistent ear pain, hoarseness or new pain in head and neck that does not go away for 2 weeks. For covid vaccine call [phone] ([phone]). documented in this encounter [facility] 07-24-2022 History of Presen t illness Narrative Images from the original note were not included. Chief Complaint: SCCa Right Postero-Lateral Tongue HPI: 67 yo F, never smoker referred by Dr. Reeves for surgical evaluation of T1N0 SCCa right lateral tongue s/p Right partial glossectomy, Right selective neck dissection, levels I-IV, [place] of split-thickness skin graft 5 cm x [...] Reported on 07/24/2022) First-BLM mouthwash (commercial containing Mtohergcl-Zbrtesljd-Mn/MgHydr-Sim eth) 1 tbsp Q4-6 hrs PRN mouth [...] at this time Pathologic Diagnosis Outside Slides [id number] (06/03/22) B. Right lateral tongue, incisional biopsy: [...] glossectomy, Right selective neck dissection, levels I-IV, [place] of split-thickness skin graft 5 cm x [...] extremities. Extremities: JEAN x 4, Warm. Skin: [place], warm and dry. Psychiatric: Normal mood and [...] airway control. documented in this encounter [facility] 07-24-2022 Instructions Trish Castellon RN - 07/24/2022 3:45 PM EDT Please call Dr. Bingham's nurse at [phone] if you notice any new lumps in head or neck, new onset of difficulty with swallowing, persistent ear pain, hoarseness or new pain in head and neck that does not go away for 2 weeks. For covid vaccine call [phone] ([phone]). documented in this encounter [facility] 07-22-2022 Note Formatting of this n [...] Auto 1.39 1.16 - 3.51 K/uL Abs [place] Auto 0.96 (H) 0.22 - 0.87 K/uL [...] so that [facility] accurately reflects [facility] 07-22-[facility]22 Miscellaneous Notes [...] Auto 1.39 1.16 - 3.51 K/uL Abs [place] Auto 0.96 (H) 0.22 - 0.87 K/uL [...] Auto 1.39 1.16 - 3.51 K/uL Abs [place] Auto 0.96 (H) 0.22 - 0.87 K/uL Abs [place] Auto 0.30 0.00 - 0.42 K/uL Abs [place] Auto 0.05 0.00 - 0.15 K/uL Plan: serial Hg, monitor for bleeding documented in this encounter [facility] 07-22-2022 History of Presen t illness [...] Otolaryngology - Head and Neck Surgery Pager #[phone] documented in this encounter [facility] 07-21-2022 Hospital Discharg e instructions Trish Weiner, LIVE TRUCK TECHNICIAN-DISPATCHER MAINTENANCE - 07/21/2022 4:14 PM EDT - Peridex [...] Auto 1.39 1.16 - 3.51 K/uL Abs [place] Auto 0.96 (H) 0.22 - 0.87 K/uL [...] attachments cannot be sent through Care Everywhere.Hemoptysis (Kinyarwanda)documented in this encounter [facility] 07-21-2022 Note Formatting of this n [...] Right; Surgeon: Ricky Bingham MD; [facility] GRAFT SKIN SPLIT THICKNESS EAR EYELID FACE MOUTH ORBIT (STSG) N/A 07/12/2022 Laterality: N/A; Surgeon: Ricky Bingham MD; [facility] LYMPHADENECTOMY CERVICAL (MODIFIED RADICAL NECK DISSECTION) Right 07/12/2022 Laterality: Right; Surgeon: Ricky Bingham MD; [facility] KNEE REPLACEMENT Right KNEE REPLACEMENT [...] by: JAVIER Cole, 07/21/2022 12:53 PM [facility] Work Phone: 07-21-2022 Note Formatting of [...] Auto 1.39 1.16 - 3.51 K/uL Abs [place] Auto 0.96 (H) 0.22 - 0.87 K/uL Abs [place] Auto 0.30 0.00 - 0.42 K/uL Abs [place] Auto 0.05 0.00 - 0.15 K/uL Plan: serial Hg, monitor for bleeding [facility] 07-21-2022 Physician Emergency department Note This [...] 07/21/22 1110 Noemi Ovalle MD 07/21/22 1111 [facility] Work Phone: 07-21-2022 Emergency department Note [...] the attending physician. This note dictated using [employer] medical voice recognition software. Attempts at proofreading [...] tongue. Patient states she sent pictures via [employer] to her doctor and they are afraid the graft is falling off. Patient if alert and oriented x4, VSS. No s/s of distress noted. documented in this encounter [facility] 07-21-2022 Physician Emergency department Note Images [...] Right; Surgeon: Ricky Bingham MD; [facility] GRAFT SKIN SPLIT THICKNESS EAR EYELID FACE MOUTH ORBIT (STSG) N/A 07/12/2022 Laterality: N/A; Surgeon: Ricky Bingham MD; [facility] LYMPHADENECTOMY CERVICAL (MODIFIED RADICAL NECK DISSECTION) Right 07/12/2022 Laterality: Right; Surgeon: Ricky Bingham MD; [facility] KNEE REPLACEMENT Right KNEE REPLACEMENT [...] the attending physician. This note dictated using Team [employer]ot medical voice recognition software. Attempts at proofreading were made, but errors may occasionally still occur. JAVIER Ruano 07/21/22 1219 [facility] 07-21-2022 Emergency department Note Patient presents to the ED for a post of complication. Patient states she has tongue cancer and had a skin graft on from her right thigh on 07/12/22. Patient states since 3 days she had been bleeding from the graft site under her tongue. Patient states she sent pictures via [employer] to her doctor and they are afraid the graft is falling off. Patient if alert and oriented x4, VSS. No s/s of distress noted. [facility] 07-17-2022 History of Presen t illness [...] Thin (IDDSI 0) Carie BETANCOURTLORENA,CNSC, RN Pager #[phone] ENT Speech- Clinical Swallow Evaluation Diet recommendation: Soft and bite sized solids (dysphagia level 6)/ Thin liquids -left sided bolus placement -intermittent liquid wash as needed Discharge recommendation: Recommend ongoing ST services at discharge. Please schedule pt with ENT COUNCIL ON AGING DIRECTOR in conjunction with ENT MD follow-up appointment for clinical swallowing evaluation vs FEES. Therapy Indicated During Inpatient Stay: No Inpatient Frequency: Inpatient COUNCIL ON AGING DIRECTOR will s/o History: 67 y.o. female admitted [...] unable to respond. 07/17/22 Administration and Scoring [facility] Kind of Place Name of Hospital [...] and is implementing strategies independently, so inpatient COUNCIL ON AGING DIRECTOR services are no longer warranted. The above was discussed with pt, RN and MD team. Recommendations: Soft and bite sized solids (dysphagia level 6)/ Thin liquids -left sided bolus placement -intermittent liquid wash as needed Care plan: Inpatient COUNCIL ON AGING DIRECTOR will s/o ROQUE Loco ENT Speech Pathology Pager: [phone] Charge: Swallow/ Dysphagia Evaluation CPT Code: 86090 PACC notified by PCRAbigail that patient no longer requires C services, referral cancelled. Sonia GEE, RN Post Acute Clinical Assistant Discharge Planning- [facility] Inpatient [facility] Discharge Note Patient discussed in medical rounds [...] and assistance is needed, please page the installation engineer PCRM at [phone]. Final Discharge Planning Discharge Disposition: Home CM/SW [...] SND levels I-V, STSG PLAN Airway (trach/stomavent): chitimacha Diet: NPO with tube feeds until follow up with ARMANDO in 1 week --> may have sips of water/ice chips when bolster taken down POD5 Drains: 2 right neck RWR Sutures/cody: Dermabwally tomas, STSG site (puracol/tegederm), intraoral bolster down POD5 Antibiotics: Unasyn while bolster in x 5 days Consults: PRN PT/OT/COUNCIL ON AGING DIRECTOR: PRN Anticoagulation: lovenox, ASA 81 (home meds) [...] - Head & Neck Surgery Personal pager [phone] [facility] Home Health Following Physician Confirmation Following Physician:Ricky Bingham MD Physician Service: Surgery Agreeable to Follow: Yes Spoke with: verified with pcrm PACC Coordination Note Patient received in handoff from test case developer for potential homecare services. Will continue to follow with test case developer for plan of care. Sonia GEE, RN Post Acute Clinical Assistant Discharge Planning for Home Health Options for discharge have been discussed with patient and family. Patient and family agree the post hospital care needs will best met at home with home care services. Background Information/ Hospital Overview: Patient is 67 years old and is s/p Right partial glossectomy, Right Selective Neck Dissection, STSG Services needed: Snf Snf Needs Nursing assessment Teaching- dobhoff/enteral care Line [...] and will be willing to work with [facility] to obtain education if there are complex teaching services needed for the patient. Physician following for home care orders / phone: Ricky Bingham MD [phone] COVID-19 Vaccination Record: Has patient been vaccinated? Yes Brand: Pfizer Dates Given: 07/01/22 Discharge Planning- [facility] Inpatient PCR Discharge Note Patient discussed in [...] and assistance is needed, please page the installation engineer PCRM at [phone]. Final Discharge Planning Discharge Disposition: Home CM/SW [...] SND levels I-V, STSG PLAN Airway (trach/stomavent): chitimacha Diet: NPO with tube feeds until follow up with ARMANDO in 1 week --> may have sips of water/ice chips when bolster taken down POD5 Drains: 2 right neck RWR Sutures/cody: Dermabond prineo, STSG site (puracol/tegederm), intraoral bolster down POD5 Antibiotics: Unasyn while bolster in x 5 days Consults: PRN PT/OT/COUNCIL ON AGING DIRECTOR: PRN Anticoagulation: lovenox, ASA 81 (home meds) [...] - Head & Neck Surgery Personal pager [phone] Summary: Psychosocial Assessment Psychosocial Assessment Per chart review, patient is a 67 y.o. female POD 3 s/p R partial glossectomy, R SND levels I-V, STSG SW met with patient to introduce self, explain social media assistant role during inpatient stay, and answer patient questions. Patient was alert and oriented x4 and agreeable to SW visit. Information Source Information Source: patient , review of medical record Information Source Name: [place] Source Number: [phone] Contact Information Multiple Needle Stitcher Name: Regina COOPER, [facility] Multiple Needle Stitcher's Social Work Contact Name: Ethel ZAFAR Equipment Records Supervisor's Phone Number: [phone] Referral Source: admission list Living Environment Lives [...] Amanda Importance: Sw made patient aware of supervisor general services. Patient Coping/Stress Concerns Patient Coping/Stress Concerns: [...] that without completed document on file, per [place] Law, daughter, Sandra , (ph:[phone]) would be their Legal NOK for decision [...] needed during inpatient stay. Ethel COOPER-Monik Clinical Equipment Records Supervisor Pager: [phone]: [phone] For Evening (4:30pm-8am) and Weekend SW needs please call [phone] or page [phone] Introduced self and role of the supervisor general to patient, Astrid. Astrid expressed appreciation for the visit and reported no spiritual care needs at this time. I expressed support for Astrid and provided information regarding 05/05 supervisor general availability and how to contact. If spiritual/emotional needs should arise, please page [phone]. Chaplains are available in-house 24 hours a day and 7 days a week. For urgent matters in the [facility], please page [phone]. If the request is not urgent, please enter a consult. Consults are responded to within 24 hours. Panchito Chase M.Div, [facility] Staff Medical Services ManagerCaleb & Caleb 05/05 On-Call Pager: [phone] 07/15/22 1020 Clinical Encounter Type Visited With Patient Visit Type Introduction Pastoral Time Spent 15 min Referral Other (See Comment) (Rounding) Interventions Provided Active listening;Supportive presence Waste Management Specialist Education Waste Management Specialist Service Available Yes Educated Patient Plan of [...] SND levels I-V, STSG PLAN Airway (trach/stomavent): chitimacha Diet: NPO with tube feeds until follow up with ARMANDO in 1 week --> may have sips of water/ice chips when bolster taken down POD5 Drains: 2 right neck RWR Sutures/cody: Dermabond prineo, STSG site (puracol/tegederm), intraoral bolster down POD5 Antibiotics: Unasyn while bolster in x 5 days Consults: PRN PT/OT/COUNCIL ON AGING DIRECTOR: PRN Anticoagulation: lovenox, ASA 81 (home meds) [...] - Head & Neck Surgery Personal pager [phone] Head & Neck Surgery Daily Progress Note [...] SND levels I-V, STSG PLAN Airway (trach/stomavent): chitimacha Diet: NPO with tube feeds until follow up with ARMANDO in 1 week --> may have sips of water/ice chips when bolster taken down POD5 Drains: 2 right neck RWR Sutures/cody: Dermabond prineo, STSG site (puracol/tegederm), intraoral bolster down POD5 Antibiotics: Unasyn while bolster in x 5 days Consults: PRN PT/OT/COUNCIL ON AGING DIRECTOR: PRN Anticoagulation: lovenox, ASA 81 (home meds) [...] Surgery ENT [facility] Floor (First Call) Pager [phone] Personal pager [phone] Head & Neck Surgery Daily Progress Note [...] SND levels I-V, STSG PLAN Airway (trach/stomavent): chitimacha Diet: NPO with tube feeds until follow up with ARMANDO in 1 week --> may have sips of water/ice chips when bolster taken down POD5 Drains: 2 right neck RWR Sutures/cody: Dermabond prineo, STSG site (puracol/tegederm), intraoral bolster down POD5 Antibiotics: Unasyn while bolster in x 5 days Consults: PRN PT/OT/COUNCIL ON AGING DIRECTOR: PRN Anticoagulation: lovenox, ASA 81 (home meds) [...] Surgery ENT [facility] Floor (First Call) Pager [phone] Personal pager [phone] NUTRITION ASSESSMENT/CONSULT Nutrition Recommendations and Plan of [...] or up to date coverage please see [employer] schedule for Dietitian Pharmacy Cashier for the appropriate unit for Friday-Friday coverage [...] is identified in the distal stomach. BM: FLEET MAINTENANCE MANAGER Urine: 1925mL 07/12 Skin: Rosales Score: 20 Active Wounds: Incision (Adult, Pediatric) 07/12/22 0743 tongue (1) Incision (Adult, Pediatric) 07/12/22 0759 Right neck (1) Wound (Adult, Pediatric) 07/12/22 0951 Right upper thigh graft (1) Edema- none Estimated Nutrition Needs: Based on IBW (50kg) Estimated Kcals Needs: 8004-6238 kcals (32-36kcals/kg) Estimated Pro Needs: 75-100g Pro (1.5-2g/kg) Estimated Fluid Needs: Per MD Malnutrition Statement as evidenced by clinical characteristics: Indications of Malnutrition: No malnutrition based on the AND/ASPEN Malnutrition Criteria [address], LD Pager: [phone] Initial Assessment Referral Information Arrived From: operating room Readmission Information Was patient readmitted within 30 Days?: No Information Source Information Source: patient , review of medical record Information Source Name: Patient and daughter Outpatient Providers Outpatient Providers Updated In IHIS: No Contact Information Multiple Needle Stitcher/SW Added to Care Team: Yes This Networker is Primary Multiple Needle Stitcher/SW: Yes Multiple Needle Stitcher Name: KENNETH Parikh ACM-SW Multiple Needle Stitcher's Social Work Contact Name: KENNETH Schulte Equipment Records Supervisor's Living Environment Lives With: alone Living Arrangements: [...] No Initial Discharge Planning Home Care Services (FLEET MAINTENANCE MANAGER): No Home Therapies (FLEET MAINTENANCE MANAGER): None DME (FLEET MAINTENANCE MANAGER): None Medical Supplies (FLEET MAINTENANCE MANAGER): None Patient Goal for Discharge: Return home [...] Source Name: Patient and daughter Contact Information Multiple Needle Stitcher/SW Added to Care Team: Yes This Networker is Primary Multiple Needle Stitcher/SW: Yes Multiple Needle Stitcher Name: KENNETH Parikh, CARMELO-WILLIE Multiple Needle Stitcher's Social Work Contact Name: KENNETH Schulte Equipment Records Supervisor's Living Environment Lives With: alone Living Arrangements: [...] is going to 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 She is aware that she will purchase [...] team updated. documented in this encounter [facility] Referral ID Status Reason Start Date Expiration Date Visits Re quested Visits Authorized * (Routine) - New Request Specialty Diagnoses / Procedures Referred By Contac t Referred To Contact Procedures PLATELET MONITORING PER PROTOCOL Ricky Bingham MD [address] [place] [address] Referral ID Status Reason Start Date Expiration Date V isits Requested Visits Authorized [id number] New Request 07/12/2022 08/06/2023 1 1 * (Routine) - New Request Specialty Diagnoses / Procedures Referred By Contac t Referred To Contact Procedures DVT/VTE RISK ASSESSMENT Ricky Bingham MD [address] [place] [address] Referral ID Status Reason Start Date Expiration Date V isits Requested Visits Authorized [id number] New Request 07/12/2022 08/06/2023 1 1 * (Routine) - New Request Specialty Diagnoses / Procedures Referred By Contac t Referred To Contact Procedures DVT/VTE RISK ASSESSMENT Ricky Bingham MD [address] [place] [address] Referral ID Status Reason Start Date Expiration Date V isits Requested Visits Authorized [id number] New Request 07/12/2022 08/06/2023 1 1 [facility]10-04-2022 Note* Nursing Notes - Divya Jauregui RN - 07/16/2022 7:27 PM EDT Aruna MURCIA that pt pulled her dubhuff [facility]10-04-2022 Miscellaneous Notes* Nursing Notes - Divya [...] to follow up * Nursing Notes - Barbaar Young RN - 07/12/2022 2:52 PM EDT [...] SND levels I-V, STSG PLAN Airway (trach/stomavent): chitimacha Diet: NPO with tube feeds until follow up with ARMANDO in 1 week --> may have sips of water/ice chips when bolster taken down POD5 Drains: 2 right neck RWR Sutures/cody: Dermabond prineo, STSG site (puracol/tegederm), intraoral bolster down POD5 Antibiotics: Unasyn while bolster in x 5 days Consults: PRN PT/OT/COUNCIL ON AGING DIRECTOR: PRN Anticoagulation: lovenox, ASA 81 (home meds) [...] - 07/12/2022 10:33 AM EDT Astrid Dumont ([id number]) PRE OPERATIVE DIAGNOSIS Malignant neoplasm of anterior [...] - Fellow ANESTHESIOLOGIST Anesthesiologist: Odin Mckeon MD RADIO RIGGER: Yrn Cavanaugh APRN-RADIO RIGGER SURGICAL STAFF Caving Guide: Astrid Knowles RN Relief Caving Guide: Byron Salcedo RN Relief Scrub: Josefina Blair [...] 2022 10:33 AM [facility]* Nursing Notes - Karen Hong [...] and give any meds. thanks Karen Gray [facility]10-01-2022 Note* Plan of Care - Nina [...] lab values. 4. RD to follow up [facility]09-30-2022 Hospital Discharge instructions* Discharge Instructions* KENNETH Parikh - 07/12/2022 3:10 PM EDT Images from the original note were not included. Evening and Weekend Contacts If you have questions or concerns during evening, weekend, or holiday hours, please call: -[facility] and The [facility] pinking machine operator at [phone]. Ask the pinking machine operator to page the on-call doctor for Ear, Nose and Throat, the service that was responsible for your care while you were in the hospital. If you having an emergency, call 911. Medical Issues: For clinical questions or medical concerns during regular business hours, please call [phone] and you will be routed to your physician's team. For discharge planning questions/concerns, please contact: KENNETH Tapia, CARMELO-WILLIE (Patient Care Gas Brazer) [phone] ANISHA Rocha, CARMELO (Patient Care Gas Brazer) [phone] KENNETH Davenport (Equipment Records Supervisor) [phone] Your Multiple Needle Stitcher (PCRM) has arranged your appointments for follow [...] a two- minute automated telephone call from [facility]. This call will come from [phone]. If you are unable to answer or do not receive the automated call, please call [phone] to complete this important evaluation. By answering [...] all. Do not do the following: - principal embedded software engineer such as vacuuming, or heavy [...] open to air. [facility]* Nursing Notes - Barbara Young RN - 07/12/2022 2:52 PM EDT Ms. Dumont is admitted to 2110 from PACU at this time and her skin is WDL except for oral and neckincisions and wound drains. Barbara Young RN 07/12/2022 [facility]09-30-2022 Note* Plan of Care - Taylor Burns MD - 07/12/2022 10:40 AM EDT EJ/PARAS Astrid Dumont POD# 0 Surgeon: Zachery Diagnosis: R posterolateral tongue SCC Procedure: R partial glossectomy, R SND levels I-V, STSG PLAN Airway (trach/stomavent): chitimacha Diet: NPO with tube feeds until follow up with ARMANDO in 1 week --> may have sips of water/ice chips when bolster taken down POD5 Drains: 2 right neck RWR Sutures/cody: Dermabond prineo, STSG site (puracol/tegederm), intraoral bolster down POD5 Antibiotics: Unasyn while bolster in x 5 days Consults: PRN PT/OT/COUNCIL ON AGING DIRECTOR: PRN Anticoagulation: lovenox, ASA 81 (home meds) [...] on POD#5 to home with tube feeds [facility] Work Phone: 1(387) 363-468509-30-2022 Note* Brief Op Note - Taylor Burns MD - 07/12/2022 10:33 AM EDT Astrid Dumont ([id number]) PRE OPERATIVE DIAGNOSIS Malignant neoplasm of anterior [...] - Fellow ANESTHESIOLOGIST Anesthesiologist: Odin Mckeon MD RADIO RIGGER: Yrn Cavanaugh APRN-RADIO RIGGER SURGICAL STAFF Caving Guide: Astrid Knowles RN Relief Caving Guide: Byron Salcedo RN Relief Scrub: Josefina Blair [...] Burns MD July 12, 2022 10:33 AM [facility]09-30-2022 History and physical note* Yrn Nelson MD - 07/12/2022 6:11 AM EDT HPI Asrtid Dumont is a 67 y.o. with history [...] extremities. Extremities: JEAN x 4, Warm. Skin: [place], warm and dry. Psychiatric: Normal mood and [...] MD Otolaryngology-Head and Neck Surgery, PGY-3 *7118 [facility]09-30-2022 History and physical note* Yrn Nelson [...] extremities. Extremities: JEAN x 4, Warm. Skin: [place], warm and dry. Psychiatric: Normal mood and [...] Neck Surgery, PGY-3 *7118 [facility] Nurse Surgical operation note* Nkechi Asif RN - 07/12/2022 5:27 AM EDT Pt denies history of chemo and radiation. Pt has metal or foreign objects in body. Denies history of seizures. [facility]09-30-2022 Nurse Note* Nkechi Asif RN - 07/12/2022 5:27 AM EDT Pt denies history of chemo and radiation. Pt has metal or foreign objects in body. Denies history of seizures. [facility] History and physical note* Julia Rae MD - 07/03/2022 9:15 AM EDT Images from the original note were not included. History of Present Illness Ms. Dumont is a 67 y.o. female being evaluated in [facility] due to her medical condition(s) , [...] with PONV Pacer/AICD: no Glaucoma: no Beta Maiekl: yes Diabetic Mellitus: yes VIKAS: no STOP-BANG [...] dyspnea, pedal edema, dizziness. Denies history of CAD/UT, CHF, arrhythmia, CVA. She does not see a Aircraft Maintenance Technician and has not been diagnosed with heart disease. She has not needed any recent cardiac testing. Functional status---Moderate. She babysits her one year old grandchild. She does her own housekeeping chores/shopping. She denies chest pain and dyspnea. Cardiac testing: ECG(07/03/2022): NSR at 60 bpm. Normal WA interval, normal axis. Cardiovascular A/P - 1. [...] MULTI VITAMIN/MIN PO) Melatonin 5 MG capsule WA ECG, CLINIC PERFORMED Pulse Ox Labs ordered/reviewed. Chem 6 and CBC in acceptable range for planned surgery. T&S reviewed. Anesthesia/Medical Assessment/plan: Reviewed patient's history, assessment & ECG findings. Optimized. Julia Rae MD [facility] Perioperative [facility] [place] [id number] [facility] Review of Systems (OSUROS) Review of [...] Activity Alcohol use: Never Drug use: Never [facility]09-21-2022 History and physical note* Julia Rae [...] dyspnea, pedal edema, dizziness. Denies history of CAD/UT, CHF, arrhythmia, CVA. She does not see a Aircraft Maintenance Technician and has not been diagnosed with heart disease. She has not needed any recent cardiac testing. Functional status---Moderate. She babysits her one year old grandchild. She does her own housekeeping chores/shopping. She denies chest pain and dyspnea. Cardiac testing: ECG(07/03/2022): NSR at 60 bpm. Normal WA interval, normal axis. Cardiovascular A/P - 1. [...] MULTI VITAMIN/MIN PO) Melatonin 5 MG capsule WA ECG, CLINIC PERFORMED Pulse Ox Labs ordered/reviewed. Chem 6 and CBC in acceptable range for planned surgery. T&S reviewed. Anesthesia/Medical Assessment/plan: Reviewed patient's history, assessment & ECG findings. Optimized. Julia Rae MD [facility]operative [facility] [address] [facility] Review of Systems (OSUROS) Review of [...] Never Drug use: Never documented in this encounterF[facility] Instructions* Patient Instructions* Cici Crockett LPN [...] NOT take Herbal Medication (including fish oil ([place]-3), garlic, Glucosamine - Chondroitin ,gingko, ginseng, Vitamin [...] may request more written information from the [place] for [employer] Information at or email: [email or web address]. Patient Pre-Operative Instructions: Diet Instructions: -NO [...] site one week prior to surgery. - [place] your teeth and rinse your mouth the [...] given and reviewed. AVS/BLS documented in [facility] History of Present illness Narrative* Heather [...] No mass or nodularity. Lymphatics: No lymphadenopathy. IMPLEMENTATION TECHNICIAN scope performed today Data Reviewed: No imaging has been performed at this time Pathologic Diagnosis Outside Slides [id number] (06/03/22) B. Right lateral tongue, incisional biopsy: [...] DHT and bolster placement. documented in this encounterF[facility]22 Instructions* Patient Instructions* Mushtaq Young RN - 06/13/2022 1:00 PM EDT Images from the original note were not included. Welcome to the Head and Neck Oncology Clinic. We are here to assist you through your care at the [facility] and [facility]. Dr. Ricky Bingham is your Head and Neck Surgical Oncology doctor. It is likely that you will have other cancer doctors to assist with your care. Heather Sánchez PA-C our physician production administrative assistant who works with Dr. Bingham, will often see you post operatively, as well as alternate visits with Dr. Bingham throughout your care for follow ups. Dr. Bingham's Primary Nurse is Mushtaq Young RN. She can be reached at [phone], and can get in touch quickly with Dr. Bingham and Heather. If not in the office when you call, please contact [phone] and leave a message for the nursing pool. Any scheduling issues will be addressed by the scheduling department at . Here are the resources/team members available to you at [facility] Head [facility]: Speech and Language Pathologists (COUNCIL ON AGING DIRECTOR)- may be asked by Dr. Bingham to [...] possible outcome for your swallowing function. Our COUNCIL ON AGING DIRECTOR's and contact phone numbers are below: Jayda Block [phone] Caitlin Sow [phone] Dulce Masterson [phone] Scarlet Desir [phone] Awa Villarreal [phone] Araceli [phone] Jack [phone] Equipment Records Supervisor- SHIRLEY Lin and SHIRLEY Maloney are available to assist with transportation and housing issues related to medical appointments. The social media assistant also provides counselingand information regarding Advance Directives, End of Life issues, Social Security Disability, and referrals to support groups, and other community agencies. Please let Mauricio or Dr Bingham know if you need these services. You may contact Yesenia at [phone] or Yokasta [phone]. [facility] This is for patients who live in [facility] with a cancer diagnosis. The [facility] can provide rides to appointments, nutritional supplements and other services. It requires that your register for services by speaking with our head and neck social workers. If you are outside of [facility] the social media assistant can assist you with what is available in your county. Financial Services-Mu Jarquin and Deedee Olmstead are our financial counselors who can assist your at your appointments or call them at [phone]. Deckhand Maintenance-Currently an order must be placed by Dr. Bingham to have to see the Deckhand Maintenance, Arianne Lawor Lia Walters. If you are already seeing Arianne or Lia Mark their direct phone number is [phone]. A Pain Management Clinic Team is available [...] to fill your prescription before you leave [place]. We are committed to providing you quality [...] one in your area or at [facility] at [phone] to make an appointment. Family Medical Leave paperwork is available through your human resources department. Please call human resources and have them fax paperwork to Mushtaq Young RN [phone]. Please allow 2 weeks for completion of FMLA paperwork. Pastoral Care-is able to assist you with your spiritual needs. If you wish to see the supervisor general, please let your oncology team know so that they can arrange this. Financial Services- financial counselor at can be reached at [phone]. Integrative Medicine Therapy -these are complementary therapies used in addition to your cancer treatment to assist with anxiety, pain, nausea, poor sleep, and exhaustion. If you wish this additional therapy please contact [email or web address] to set up an appointment. Youmay also request this in the same way if you are inpatient or ask your nurse. THERE IS NO COST FOR THIS SERVICE. Fertility Presevation and Reproductive Health-[facility] offers fertility preservation. This requires a referral from your doctor. If you are interested in sperm banking, egg freezing or other optionsplease let your doctor know before you have chemotherapy or radiation. For information options please call [phone]. [facility] - It is conveniently located on the [facility] campus on the conference level (CL) of the [facility] and [facility],next door to [facility] and near [facility]. To learn more about [facility], you can visit it on weekdays from 8 a.m. - 9 p.m. and on weekends from 9 a.m. - 6 p.m. [employer]- is a communication tool used through the [...] this must be done in person. Our extruding machine operator staff can assist you to get a password that can be changed when after you log on the first time. IMPORTANT REMINDER: This portal is only for NON-urgent information. If you have urgent information about your condition please call ANISHA Martínez at [phone]. THERE IS A NEW [employer] ARMANDO FOR SMART PHONES. USE YOUR ARMANDO STORE AND SEARCH [employer], download the armando and follow the prompts to set up the [facility] format. Through this ARMANDO, you will be [...] may request more written information from the [employer] at or email: [email or web address]. Neck Dissection What is a Neck [...] may request more written information from the [employer] at or email: [email or web address]. Shoulder Exercise after a Neck Dissection After [...] tube. It is a metal / plastic ([place] one) trach tube that has the following [...] a cuff. _ Cuff Inflation Tube with Scissors Sharpener Balloon: The air is inserted through this tube when you inflate the cuff. The shop assistant balloon inflates when the cuff inside is inflated. _ Talk to your doctor or health care team if you have any questions. You may request more written information from the [employer] Information at or email: [email or web address]. Nasogastric (NG) Tube A nasogastric tube [...] a dry erase board. 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, part unspecified 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, part unspecified [facility] Diagnosis Pre-operative examination for internal [...] tongue, part unspecified [facility] Diagnosis 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, part unspecified Postoperative state Other postprocedural status documented in this [facility] Diagnosis Other postoperative complication of skin- Primary S/P partial glossectomy Other postprocedural status [facility] Diagnosis 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- 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, part unspecified [facility] Diagnosis 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- 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, part unspecified History of hemorrhage of tongue [facility] Diagnosis 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- 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, part unspecified [facility] Diagnosis 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- 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, part unspecified documented in this encounter [facility] Narrative* Auth/Cert 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.] Sánchez PA-C [address] [place] [address] Referral ID Status Reason Start Date Expiration Date V isits Requested Visits Authorized [id number] New Request 06/13/2022 07/08/2023 1 1 Specialty Diagnoses / Procedures Referred By Contac t Referred To Contact Oncology Diagnoses 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 Heather Sánchez PA-C [address] [place] [address] Referral ID Status Reason Start Date Expiration Date V isits Requested Visits Authorized [id number] New Request 06/13/2022 07/08/2023 1 1 Specialty Diagnoses / Procedures Referred By Contac t Referred To Contact Diagnoses 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 Procedures CT CHEST WITH CONTRAST CHG DIAGNOSTIC COMPUTED TOMOGRAPHY THORAX W/CONTRAST Heather Sánchez, PA-C [address] [place] [address] Referral ID Status Reason Start Date Expiration Date V isits Requested Visits Authorized [id number] New Request 06/13/2022 07/08/2023 1 1 Specialty Diagnoses / Procedures Referred By Contac t Referred To Contact Diagnoses 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 Procedures CT NECK WITH CONTRAST WA CT NECK TISSUE CONTRAST Heather Sánchez, PA-C [address] [place] [address] Referral ID Status Reason Start Date Expiration Date V isits Requested Visits Authorized [id number] New Request 06/13/2022 07/08/2023 1 1 Referral ID Status Reason Start Date Expiration Date V isits Requested Visits Authorized [id number] Pending Review 06/13/2022 07/08/2023 1 1 Specialty Diagnoses / Procedures Referred By Contac t Referred To Contact Procedures DIRECT ADMIT REQUEST Kailey Art, LIVE TRUCK TECHNICIAN-DISPATCHER MAINTENANCE [address] [facility] [address] [place] [address] Referral ID Status Reason Start Date Expiration Date V isits Requested Visits Authorized [id number] New Request 07/24/2022 08/18/2023 1 1 Specialty Diagnoses / Procedures Referred By Contac t Referred To Contact Diagnoses 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 Heather Sánchez, PA-C [address] [place] [address] Marlen Reeves, DDS [address] [place] [address] Referral ID Status Reason Start Date Expiration Date V isits Requested Visits Authorized [id number] Schedule Outgoing - Transfer of Care 11/20/2022 12/15/2023 1 1 Summary Purpose Additional Source Comments Reason for Visit (unrecogniz ed section and content) Specialty Diagnoses / Procedures Referred By Contac t Referred To Contact Diagnoses 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 Procedures CT CHEST WITH CONTRAST CHG DIAGNOSTIC COMPUTED TOMOGRAPHY THORAX W/CONTRAST Heather Sánchez PA-C [address] [place] [address] Referral ID Status Reason Start Date Expiration Date V isits Requested Visits Authorized [id number] Pending Review 06/13/2022 07/08/2023 1 1 Reason Comments Pre-operative Consultation Specialty Diagnoses / Procedures Referred By Contac t Referred To Contact PreOp Diagnoses 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 Heather Sánchez PA-C [address] [place] [address] Referral ID Status Reason Start Date Expiration Date V isits Requested Visits Authorized [id number] Pending Review 06/13/2022 07/08/2023 1 1 Reason Comments Post-Op Problem Specialty Diagnoses / Procedures Referred By Contac t Referred To Contact [facility] [address] [place] [address] [facility] [address] [place] [address] Referral ID Status Reason Start Date Expiration Date Visits Re quested Visits Authorized [id number] 1 1 Reason Comments Post Op Visit Reason Comments Follow-up Reason Comments Follow-up Care Teams (unrecognized sec tion and content) Employment Instructional Associate Relationship Specialty Start Date End Date Duong Durham MD [address] [facility] [address] [place] [id number] PCP - General Family Medicine 06/13/22 Dr Myles Gupta Referring Provider Dentistry 07/03/22 Employment Instructional Associate Relationship Specialty Start Date End Date Duong Durham MD [address] [place] [address] PCP - General Family Medicine 06/13/22 Dr Myles Gupta Referring Provider Dentistry 07/03/22 Employment Instructional Associate Relationship Specialty Start Date End Date Duong Durham MD [address] [place] [address] PCP - General Family Medicine 06/13/22 Dr Myles Gupta Referring Provider Dentistry 07/03/22 Employment Instructional Associate Relationship Specialty Start Date End Date Duong Durham MD [address] [place] [address] PCP - General Family Medicine 06/13/22 Dr Myles Gupta Referring Provider Dentistry 07/03/22 Employment Instructional Associate Relationship Specialty Start Date End Date Duong Durham MD [address] [place] [address] PCP - General Family Medicine 06/13/22 Dr Myles Gupta Referring Provider Dentistry 07/03/22 Employment Instructional Associate Relationship Specialty Start Date End Date Duong Durham MD [address] [place] [address] PCP - General Family Medicine 06/13/22 Dr Myles Gupta Referring Provider Dentistry 07/03/22 Employment Instructional Associate Relationship Specialty Start Date End Date Duong Durham MD [address] [place] [address] PCP - General Family Medicine 06/13/22 Dr Myles Gupta Referring Provider Dentistry 07/03/22 Employment Instructional Associate Relationship Specialty Start Date End Date Duong Durham MD [address] [place] [phone] PCP - General Family Medicine 06/13/22 Dr [...] 50% needed, contact pharmacy or obtain from [facility] cart ++ docusate (COLACE) capsule 100 mg(Linked [...] glucose is greater than 200md/dl, then notify Commercial Lines Manager. And BLOOD GLUCOSE (POC DEVICE) (CANCELED) Routine, [...] at 0742, Until Specified
Who to Notify: Commercial Lines Manager
For all Blood Glucose LESS THAN 80 mg/dl, notify Commercial Lines Manager after treatment per Hypoglycemia in Non- Adults [...] BE BASED ON THE PRIMARY CLINICAL RECORDS. [facility]. provides no warranty or guarantee of the accuracy or completeness of information in this document.
[2023-12-22 05:45] VITALS: BP 123/69; PULSE 66; RESP 16; TEMP 36.5; O2SAT 97; BMI 35.8
[2023-12-22] MEDS: Lactated Ringers 1,000 ML 15 ML IV (05:54)
--- NOTE | 2023-12-22 06:30 | EGD_PTH ---
PATHOLOGY RESULTS PATIENT: RITCHIE DUMONT LOC: EN U#:[id number] AGE/SX: 68/F ROOM: RE12/22/[address]: Dr. Abdi Jackson DO : 1955 BED: DIS: 12/22/2023 SPEC #: [id number] RECD: 12/22/23 10:14 STATUS: CHITRA COLLAZO #: [id number] RORO: 12/22/23 06:[address]: Abdi Jackson DEPT: SURGICAL PATHOLOGY RECD BY: Irene Marie ENTERED: 12/22/23 11:49 SP TYPE: EGD BIOPSY FANTA DR: Dr. Mike Durham MD Tissues: Esophagus, NOS Gastric mucous membrane Procedures: Special Stain Group II Surgery Specimen Level IV Alcian Blue/PAS (control) HEADER OPERATION: EGD biopsy PRE-OP DIAGNOSIS: Vaz's esophagus TISSUE SUBMITTED: A - Distal esophagus biopsy, B - Gastric antrum biopsy for histo and H. pylori MICROSCOPIC DIAGNOSIS A. Distal esophagus, biopsy: Fragments of gastroesophageal mucosa with extensive intestinal metaplasia (goblet cell metaplasia), consistent with Vaz's esophagus. Chronic inflammation. Negative for dysplasia. See comment. B. Gastric antrum, biopsy: Mild gastritis. See microscopic description and comment. SJ:rg 12/23/2023 COMMENT A. Immunohistochemistry ([id number]) for P53 and Ki-67 will be performed and results will be reported separately. Alcian blue/PAS stain with matched control is used in the evaluation of the specimen. B. The results of immunohistochemistry for Helicobacter pylori will be reported separately ([id number]). MICROSCOPIC DESCRIPTION Slides are reviewed. B. The specimen shows fragments of gastric mucosa with chronic inflammatory cell infiltrates in the lamina propria consisting of lymphocytes and plasma cells, consistent with mild chronic gastritis. GROSS DESCRIPTION A- Received in fixative is one container labeled with the patient's name and designated Distal esophagus. The specimen consists of multiple irregular fragments of light cuello soft tissue that in aggregate measure 1.0 x 0.5 x 0.1 cm. The specimen is totally submitted in one cassette. B- Received in fixative is one container labeled with the patient's name and designated gastric antrum. The specimen consists of multiple irregular fragments of light cuello soft tissue that in aggregate measure 1.5 x 0.3 x 0.1 cm. The specimen is totally submitted in one cassette. Angelita 12/22/2023 TC:5 CPT: 68876 x2, 23869
--- NOTE | 2023-12-22 06:30 | IMM_PTH ---
PATHOLOGY RESULTS PATIENT: RITCHIE DUMONT LOC: EN U#:[id number] AGE/SX: 68/F ROOM: RE12/22/[address]: Dr. Abdi Jackson DO : 1955 BED: DIS: 12/22/2023 SPEC #: [id number] RECD: 12/22/23 13:18 STATUS: CHITRA REQ #: [id number] RORO: 12/22/23 06:[address]: Abdi Jackson DEPT: IMMUNOHISTOCHEMISTRY RECD BY: Venkat Pool ENTERED: 12/22/23 13:19 SP TYPE: IMMUNO OTHR DR: Dr. Mike Durham MD Tissues: Stomach, NOS Procedures: H Pylori (initial) P53 (add) KI-67 (initial) PHYSICIAN & INSTITUTION [place] [id number] SPECIMEN INFORMATION: Tissue Source: A - Distal esophagus, B - Gastric Antrum Clinical Info: Vaz's esophagus Specimen Number: [id number] A & B CPT code: 50528 x2, 31517 METHODOLOGY: Deparaffinized sections of prefer/formalin-fixed tissue or PAP/DQ stained slides are incubated with monoclonal/polyclonal antibodies/oligonucleotide probes. Localization is made via biotin free immunoperoxidase method. Appropriate controls are performed and reacted as expected. Results on target cell population are indicated in the following table: RESULTS: ANTIBODY / CLONE RESULT Block A P53 (DO-7) negative (null pattern) Ki-67 (30-9) positive, low Block B H Pylori (polyclonal) negative These tests were developed and their performance characteristics determined by [facility]. They may not have been cleared or approved by the U.S. Food and Drug Administration. The FDA has determined that such clearance or approval is not necessary. The above immunohistochemical/dualISH markers are ordered and reviewed by the Pathologist. INTERPRETATION: A. Distal esophagus, biopsy: Negative for dysplasia. B. Gastric antrum, biopsy: Negative for Helicobacter pylori organisms. CARLY/ 12/24/23
--- NOTE | 2023-12-22 06:41 | HP.PCM_ITS ---
History and Physical Date of Admission: 12/22/23 RITHCIE DUMONT, is a 68 F who presents to the office today for follow up. Last visit 12.19.22 for discussion of EGD and colonoscopy results. She saw her primary care physician Dr Durham since her endoscopies and he started her on omeprazole 40 mg qam for new diagnosis of Vaz's esophagus. EGD had appearance of long-segment Vaz's which was confirmed on biopsy, negative for dysplasia; significant bile in the stomach; no pathologic diagnosis from duodenal biopsies. Colonoscopy revealed diverticulosis, no pathologic diagnosis from random colon biopsies. Diarrhea is significantly improved with cholestyramine in morning, doesn't seem like it lasts all day, loperamide in pm. treated with vancomycin for C diff. positive for C diff A/B antigen, negative for C diff toxin, positive for PCR. negative test for EPI, neg for Crohn's, neg for celiac 20 yr hx of IBS-D. Viberzi was effective but cost prohibitive. No dietary triggers in particular. No relief with Lotronex. Never on xifaxan. Never on lomotil. On metformin for 15 yrs. Tested negative for celiac in 2017. Normal fecal elastase in 2021. No melena or hematochezia. Gets a discomfort in the LLQ before diarrhea, that resolves after having multiple bouts of diarrhea in the morning. 12/23/22 EGD and Colonoscopy Impression: - Esophageal mucosal changes consistent with long-segment Vaz's esophagus. Biopsied. - Bile gastritis. - Erythematous duodenopathy. Biopsied. Impression: - Congested mucosa in the sigmoid colon, at the splenic flexure and at the hepatic flexure. Biopsied. - Diverticulosis in the sigmoid colon. MICROSCOPIC DIAGNOSIS A. Duodenum, biopsy: Fragments of duodenal mucosa, no pathologic diagnosis. B. Distal esophagus, biopsy: Fragments of gastroesophageal mucosa with intestinal metaplasia (goblet cell metaplasia), consistent with Vaz's esophagus. Chronic inflammation. Negative for dysplasia. See comment. C. Colon, random biopsy: Fragments of colonic mucosa, no pathologic diagnosis. US abd limited .03.26.2021- Liver measures 21.6cm with fatty infiltration OV 09.29.23- Pt here to follow up regarding her liver. Received fax from [facility] to review her elevated LFT's. Says she was told she had fatty liver before. Diarrhea has been controlled with cholestyramine and prn Lomotil. Denies abdominal pain, cramping and bloating. Heartburn is controlled with Omeprazole. ROS Const Constitutional: No fatigue ENT ENT: No difficulty swallowing Cardio Cardiology: Positive for leg pain with exertion Gastro GI: Positive for bloating and excessive flatus; No abdominal pain, belching, change in bowel habits, change in stool character, coffee ground emesis, constipation, cramping, diarrhea, heartburn, difficulty swallowing, feeling full early, incontinent of stools, Vomiting blood/hematemesis, Blood in stool, loose stools, Black,tarry stools, nausea/dyspepsia, pain with swallowing, vomiting or other Musc Musculoskeletal: Positive for Arthritis, restless legs and leg pain with exertion; No joint pain Skin Skin: No yellowing of the eye or itchy eyes Neuro Neurology: Positive for restless legs Psych Psychiatric: No anxiety and No depression Endo Endocrine: No fatigue Aller/Imm Allergy/Immunologic: No itchy eyes Alvin/Lymp Hematologic/Lymphatic: No easy bleeding or easy bruising Exam Const General: cooperative, no acute distress and well developed Nutritional Appearance: underweight Orientation: alert, awake and oriented x3 Other: BMI 28.9 KG per square meter HENNV Head: normocephalic and atraumatic Nose: external nose normal Face and sinus: normal facial exam Mouth: moist mucous membranes Eyes Pupils: PERRL EOM: EOM intact bilaterally Neck Neck: normal visual inspection, no meningeal signs and trachea midline Carotids: no bruits Chest Chest palpation & inspection: normal inspection of the chest Resp Effort & Inspection: normal respiratory effort and symmetric chest movement Auscultation: Bilateral: Clear to Auscultation Cardio Palpation: normal PMI Rate: regular rate Rhythm: regular rhythm Heart Sounds: S1 normal and S2 normal GI Auscultation: normal bowel sounds Percussion: normal to percussion Palpation: soft, no hepatosplenomegaly and no guarding Other: Abdominal fat. Increase abdominal girth. Clinically no shifting dullness or ascites. General: bimanual renal exam normal bilaterally, bladder normal to inspection and bladder normal to palpation Bimanual Exam- Vagina & Uterus: bladder normal to palpation Musc Musculoskeletal: No joint tenderness, joint redness, joint warmth or decreased range of motion Thoracic/Lumbar Spine: thor and lumb spine abnorm to inspection Skin General: rashes and/or lesions noted, turgor normal and no erythema Wounds: wound noted Neuro General: patient alert, patient awake, patient oriented x3 and no focal motor deficits Speech: speech normal Motor: muscle tone normal throughout Extrem General: normal exam except as noted Other: No pedal edema. Psych Appearance: grossly normal Mood: congruent mood Affect: normal affect Attitude: cooperative Quality Reporting Tobacco Screening ([facility]) Smoking Status: Never smoker Assessment and Plan Assessment and Plan (1) NAFLD (nonalcoholic fatty liver disease): Status: Chronic Plan: Based on the labs of June 2023, her fib 4 score is 2.26 approximate fibrosis stage Felipa 2-3. Her NAFLD score is -0.66 which correlates with indeterminant score. Last liver chemistry ALT 50, AST 55 similar with no significant change. Patient did not had any full workup for elevated liver chemistry therefore comprehensive workup ordered. She has hepatitis A, B C panel negative but HSV and EBV ordered including autoimmune, metabolic disease workup. Last liver ultrasound from March 2021 reviewed. Liver enlarged 21.6 cm with no demonstrated mass lesion. Fatty infiltration with increased echogenicity. CBD 4.0 cm. Pancreas and biliary system in normal limit. Liver ultrasound with echogenicity and AFP ordered. Follow-up in 3 months. Patient was educated about the risk factor, natural history and consequences of metabolic dysfunction associated steatotic liver disease. Advised weight loss, director revenue consult, decreased calorie intake, increased mixed exercise, better glucose control and blood pressure and dyslipidemia. Last fasting profile in June 2023 shows triglyceride 90, LDL 36 and HDL 60. TSH and free T4 also in normal limit. A1c 6.7 with glucose 207. Patient on metformin 1000 mg twice daily and empagliflozin. Medication reconciliation done. It does not seem any new ideation of medication the last 3 months. There is no very outstanding hepatotoxic medication on the list. Patient not on acetaminophen but if she has to take, advised less than 1 g/day. Patient also has crystallize associated arthritis disease not clear exactly what on allopurinol and Plaquenil. Autoimmune workup is ordered. (2) Vaz's esophagus: Status: Chronic Qualifiers: Vaz's esophagus type: without dysplasia Qualified Code(s): K22.70 - Vaz's esophagus without dysplasia Plan: The patient is doing well on omeprazole 40 mg daily. Denies any heartburn symptoms, reflux or dyspeptic symptoms. Next EGD scheduled in December 2022. (3) Irritable bowel syndrome with diarrhea: Status: Chronic Plan: controlled BM, Sometimes 2-3 soft sold, formed stool. Continue 1 Lomotil in morning and cholestyrmaine. Duodenogastric reflux. Orders: Orders AFP, Tumor Marker 3 Months K22.70 - Avz's esophagus without dysplasia, K58.0 - Irritable bowel syndrome with diarrhea, K76.0 - Fatty (change of) liver, not elsewhere classified Anti-Mitochondrial AB 3 Months K22.70 - Vaz's esophagus without dysplasia, K58.0 - Irritable bowel syndrome with diarrhea, K76.0 - Fatty (change of) liver, not elsewhere classified Anti-Smooth Muscle ABS 3 Months K22.70 - Vaz's esophagus without dysplasia, K58.0 - Irritable bowel syndrome with diarrhea, K76.0 - Fatty (change of) liver, not elsewhere classified CBC W/Diff, Automated 3 Months K22.70 - Vaz's esophagus without dysplasia, K58.0 - Irritable bowel syndrome with diarrhea, K76.0 - Fatty (change of) liver, not elsewhere classified ANCA 3 Months K22.70 - Vaz's esophagus without dysplasia, K58.0 - Irritable bowel syndrome with diarrhea, K76.0 - Fatty (change of) liver, not elsewhere classified Angiotensin Convert Enzyme 3 Months K22.70 - Vaz's esophagus without dysplasia, K58.0 - Irritable bowel syndrome with diarrhea, K76.0 - Fatty (change of) liver, not elsewhere classified Hemoglobin A1c 3 Months K22.70 - Vaz's esophagus without dysplasia, K58.0 - Irritable bowel syndrome with diarrhea, K76.0 - Fatty (change of) liver, not elsewhere classified Ferritin 3 Months K22.70 - Vaz's esophagus without dysplasia, K58.0 - Irritable bowel syndrome with diarrhea, K76.0 - Fatty (change of) liver, not elsewhere classified CRP 3 Months K22.70 - Vaz's esophagus without dysplasia, K58.0 - Irritable bowel syndrome with diarrhea, K76.0 - Fatty (change of) liver, not elsewhere classified Comprehensive Metabolic Profil 3 Months K22.70 - Vaz's esophagus without dysplasia, K58.0 - Irritable bowel syndrome with diarrhea, K76.0 - Fatty (change of) liver, not elsewhere classified Ceruloplasmin 3 Months K22.70 - Vaz's esophagus without dysplasia, K58.0 - Irritable bowel syndrome with diarrhea, K76.0 - Fatty (change of) liver, not elsewhere classified Copper, Serum or Plasma 3 Months K22.70 - Vaz's esophagus without dysplasia, K58.0 - Irritable bowel syndrome with diarrhea, K76.0 - Fatty (change of) liver, not elsewhere classified Lipid Profile 3 Months K22. - Vaz's esophagus without dysplasia, K58.0 - Irritable bowel syndrome with diarrhea, K76.0 - Fatty (change of) liver, not elsewhere classified Prothrombin Time w/INR 3 Months K22. - Vaz's esophagus without dysplasia, K58.0 - Irritable bowel syndrome with diarrhea, K76.0 - Fatty (change of) liver, not elsewhere classified HIV - [facility] 3 Months K2. - Vaz's esophagus without dysplasia, K58.0 - Irritable bowel syndrome with diarrhea, K76.0 - Fatty (change of) liver, not elsewhere classified GIOVANNY w/ Reflex Mult Confirm 3 Months K2. - Vaz's esophagus without dysplasia, K58.0 - Irritable bowel syndrome with diarrhea, K76.0 - Fatty (change of) liver, not elsewhere classified Iron+Iron Binding Capacity 3 Months K22. - Vaz's esophagus without dysplasia, K58.0 - Irritable bowel syndrome with diarrhea, K76.0 - Fatty (change of) liver, not elsewhere classified Vitamin D,25 Hydroxy 3 Months K2. - Vaz's esophagus without dysplasia, K58.0 - Irritable bowel syndrome with diarrhea, K76.0 - Fatty (change of) liver, not elsewhere classified EBV Acute Prof IgG / IgM 3 Months K22. - Vaz's esophagus without dysplasia, K58.0 - Irritable bowel syndrome with diarrhea, K76.0 - Fatty (change of) liver, not elsewhere classified Miscellaneous Lab Procedure 3 Months K22. - Vaz's esophagus without dysplasia, K58.0 - Irritable bowel syndrome with diarrhea, K76.0 - Fatty (change of) liver, not elsewhere classified LDH 3 Months K22. - Vaz's esophagus without dysplasia, K58.0 - Irritable bowel syndrome with diarrhea, K76.0 - Fatty (change of) liver, not elsewhere classified ABD Limited w/ Elastography 3 Months K76.0 - Fatty (change of) liver, not elsewhere classified I have examined the patient and the H&P has been reviewed. There are no clinical changes since date of exam.
[2023-12-22 06:57] VITALS: BP 107/59; BP 123/69; PULSE 71; RESP 18; TEMP 36.4; O2SAT 95
--- NOTE | 2023-12-22 06:58 | OP.EGD_ITS ---
Patient Name: Astrid Baca Procedure Date: 12/22/2023 6:29 AM Date of : 1955 Age: 68 Procedure: Upper GI endoscopy Indications: Vaz's esophagus Providers: Abdi Jackson DO Medicines: Monitored Anesthesia Care Patient Profile: This is a 68 year old female. Refer to note in patient chart for documentation of history and physical. Patient has symptoms of chronic heartburn. Complications: No immediate complications. Procedure: Pre-Anesthesia Assessment: - Prior to the procedure, a History and Physical was performed, and patient medications and allergies were reviewed. The patient is competent. The risks and benefits of the procedure and the sedation options and risks were discussed with the patient. All questions were answered and informed consent was obtained. Patient identification and proposed procedure were verified by the physician in the pre-procedure area. Mental Status Examination: alert and oriented. Airway Examination: normal oropharyngeal airway and neck mobility. Respiratory Examination: clear to auscultation. CV Examination: normal. Prophylactic Antibiotics: The patient does not require prophylactic antibiotics. Prior Anticoagulants: The patient has taken no anticoagulant or antiplatelet agents. After reviewing the risks and benefits, the patient was deemed in satisfactory condition to undergo the procedure. The anesthesia plan was to use monitored anesthesia care (MAC). Immediately prior to administration of medications, the patient was re-assessed for adequacy to receive sedatives. The heart rate, respiratory rate, oxygen saturations, blood pressure, adequacy of pulmonary ventilation, and response to care were monitored throughout the procedure. The physical status of the patient was re-assessed after the procedure. After obtaining informed consent, the endoscope was passed under direct vision. Throughout the procedure, the patient's blood pressure, pulse, and oxygen saturations were monitored continuously. The Endoscope was introduced through the mouth, and advanced to the second part of duodenum. The upper GI endoscopy was accomplished with ease. The patient tolerated the procedure well. 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 The maximum longitudinal extent of these mucosal changes was 4 cm in length. Mucosa was biopsied with a cold forceps for histology in a targeted manner at intervals of 1 cm in the lower third of the esophagus. One specimen bottle was sent to pathology. Localized moderate inflammation characterized by erythema and granularity was found in the gastric antrum. Biopsies were taken with a cold forceps for histology. Biopsies were taken with a cold forceps for Helicobacter pylori testing. Verification of patient identification for the specimen was done. Estimated blood loss was minimal. The first portion of the duodenum was normal. Impression: - Esophageal mucosal changes secondary to established long-segment Vaz's disease. Biopsied. - Acute gastritis. Biopsied. - Normal first portion of the duodenum. Recommendation: - Discharge patient to home. - Resume previous diet. - Continue present medications. - Await pathology results. - Repeat upper endoscopy in 1 year for surveillance. Procedure Code(s): --- Professional --- 33170, Esophagogastroduodenoscopy, flexible, transoral; with biopsy, single or multiple CPT copyright 2021 [employer]. All rights reserved. The codes documented in this report are preliminary and upon auditing coder review may be revised to meet current compliance requirements. Abdi Jackson DO 12/22/2023 6:57:45 AM This report has been signed electronically. Number of Addenda: 0 Note Initiated On: 12/22/2023 6:29 AM
--- NOTE | 2023-12-22 06:59 | OP.CCLET_ITS ---
12/22/2023 Mike Durham [address] [place] [address] Re : Upper GI endoscopy procedure for Astrid Rosalesbins Dear Dr. Durham This procedure was performed on Friday, December 22, 2023. 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 Biopsied. - Acute gastritis. Biopsied. - Normal first portion of the duodenum. Recommendations : - Discharge patient to home. - Resume previous diet. - Continue present medications. - Await pathology results. - Repeat upper endoscopy in 1 year for surveillance. My findings are described in the full procedure note, which is enclosed. If I can be of further assistance, please feel free to contact me at . Sincerely, Abdi Jackson, 12/22/2023 6:57:45 AM This report has been signed electronically.
[2023-12-22 07:00] VITALS: BP 104/67; BP 123/69; PULSE 67; RESP 16; O2SAT 97
[2023-12-22 07:05] VITALS: BP 123/69; BP 99/61; PULSE 67; RESP 16; O2SAT 98
[2023-12-22 07:10] VITALS: BP 107/62; BP 123/69; PULSE 68; RESP 16; TEMP 36.2; O2SAT 95
[2023-12-22 07:24] LABS: Bedside Glucose 206 mg/dL (74-106)
[2023-12-22 07:29] VITALS: BP 123/69
== END 2023-12-22 07:31 | disposition home or self-care (01) ==
LOC: EN 05:27 → AC 05:27
PROVIDERS: PCP Family Medicine; Referring Provider Family Medicine; Visit Provider Internal Medicine Gastroenterology
PROC: 0DJ08ZZ Inspection of Upper Intestinal Tract, Via Natural or Artificial Opening Endoscopic (ICD-10-PCS; CPT 43235; principal; 2023-12-22 06:25)
DX: K29.00 Acute gastritis without bleeding (principal); E11.9 Type 2 diabetes mellitus without complications; K76.0 Fatty (change of) liver, not elsewhere classified; K22.70 Barrett's esophagus without dysplasia; Z79.899 Other long term (current) drug therapy; K58.0 Irritable bowel syndrome with diarrhea; Z79.890 Hormone replacement therapy; Z79.84 Long term (current) use of oral hypoglycemic drugs; Z79.85 Long-term (current) use of injectable non-insulin antidiabetic drugs; E78.00 Pure hypercholesterolemia, unspecified; Z87.19 Personal history of other diseases of the digestive system; K20.90 Esophagitis, unspecified without bleeding
CPT/HCPCS: 43239; 82962; 88305; 88313; 88341; 88342; J7120; J2405

== ENCOUNTER → 2024-01-20 | Outpatient (CLI) | payer MEDICARE, OTHER, SELFPAY ==
[2024-01-20 08:47] LABS: Bacteria 0 SEEN /hpf (None Seen); Mucous, Urine 0 SEEN /hpf (<or=2+); Squamous Epithelial Cells - UA 0 SEEN /hpf (5-10); White Blood Cells 0 SEEN /hpf (0-5)
[2024-01-20 09:21] LABS: Absolute Lymphocyte Count 1.31 X10^3/uL (0.83-4.51); Absolute Neutrophil Count 2.9 X10^3/uL (2.0-7.7); Basophil# 0.06 X10^3/uL; Basophil% 1.2 % (0-1); Eosinophils% 2.1 % (0-5); Hematocrit 42.8 % (37-47); Hemoglobin 13.5 g/dL (12.0-15.0); Lymphocyte # 1.31 X10^3/ul (0.83-4.51); Lymphocyte % 26.9 % (19-41); Mean Corp Hgb Conc 31.5 g/dL (32-36); Mean Corpuscular Hgb 27.7 pg (27.0-32.0); Mean Corpuscular Volume 87.7 fL (81-99); Monocyte# 0.45 X10^3/uL; Monocyte% 9.2 % (0-10); NRBC Flagged by Analyzer 0 % (0-5); Neutrophil # 2.94 X10^3/uL (2.7-7.7); Neutrophil % 60.4 % (47-70); Platelet Count 239 K/mm3 (150-450); RBC Distribution Width CV 13.4 % (11.6-14.6); RBC Distribution Width SD 42.6 fl (35.1-43.9); Red Blood Count 4.88 M/mm3 (4.2-5.4); White Blood Count 4.9 K/mm3 (4.4-11.0)
[2024-01-20 09:24] LABS: Color, Urine Yellow (Yellow); Glucose, Dipstick 1000 mg/dl (Normal); Ketone-Dipstick Negative (Negative); Leukocyte Esterase-Dipstick Negative /ul (Negative); Nitrite-Dipstick Negative (Negative); Occult Blood-Urine 10 /ul (Negative); Protein-Dipstick 15 mg/dl (Negative); Urine Bilirubin Dipstick Negative (Negative); Urine Clarity Clear (Clear); Urine Urobilinogen Normal (Normal)
[2024-01-20 09:32] LABS: Red Blood Cells-Urine 0-5 SEEN /hpf (0-5)
[2024-01-20 09:33] LABS: Prothrombin Time (Protime)PT. 13.6 SECONDS (11.7-14.9)
[2024-01-20 09:53] LABS: Vitamin D,25 Hydroxy 52.1 ng/mL
[2024-01-20 10:15] LABS: HIV - WCH Non-Reactive (Nonreactive)
[2024-01-20 14:02] LABS: ALB/GLOB Ratio 0.9 RATIO (0.9-2.4); AST(SGOT) 38 U/L (15-37); Alanine Aminotransfer ALT/SGPT 51 U/L (13-56); Albumin, Serum 3.7 g/dL (3.2-5.0); Alkaline Phosphatase 68 U/L (45-117); Anion Gap 9 (5-15); BUN 16 mg/dL (7-18); BUN/Creat Ratio 18.2 RATIO (10-20); CRP < 2.90 mg/L (0.0-3.0); Calcium,Total 9.5 mg/dL (8.5-10.1); Chloride 105 mmol/L (98-107); Cholesterol 107 mg/dL (200); Creatinine, Serum 0.88 mg/dL (0.55-1.02); EST Glomerular Filtration Rate 68 mL/min (>60); Est Glom Filt Rate - Afr Amer 82 mL/min (>60); Ferritin 67 ng/mL (8-252); Glucose 170 mg/dL (74-106); High Density Lipoprotein 55 mg/dL; Iron 76 ug/dL (50-170); Iron Binding Capacity,Total 353 ug/dL (250-450); LDH 185 U/L (84-246); PERCENT IRON SATURATION 21.5 % (15.0-55.0); Potassium 3.9 mmol/L (3.5-5.1); Protein, Total 7.7 g/dL (6.4-8.2); Sodium Level 140 mmol/L (136-145); Triglycerides 82 mg/dL; Very Low Density Lipoprotein 16 mg/dL (5-40)
[2024-01-20 15:46] LABS: Magnesium 1.5 mg/dL (1.6-2.6); T4 Free Direct 1.08 ng/dL (0.76-1.46); Thyroid Stim Hormone (TSH) 1.61 uIU/mL (0.358-3.74)
[2024-01-20 17:39] LABS: Hemoglobin A1c 7.2 % (3.8-5.6)
[2024-01-21 13:09] LABS: ANTINUCLEAR ANTIBODIES DIRECT Negative (Negative); Anti-Mitochondrial AB <20.0 Units (0.0-20.0)
[2024-01-22 19:07] LABS: AFP, Tumor Marker < 1.8 ng/mL (0.0-9.2); Angiotensin Convert Enzyme 58 U/L (14-82); Anti-Smooth Muscle ABS 13 Units (0-19); Ceruloplasmin 25.5 mg/dL (19.0-39.0); Copper, Serum or Plasma 93 ug/dL (80-158); Cytoplasmic Ab (C-ANCA) <1:20 titer (Neg:<1:20); EBV Acute VCA IgM < 36.0 U/mL (0.0-35.9); EBV-VCA IgG > 600.0 U/mL (0.0-17.9); Perinuclear Ab (P-ANCA) <1:20 titer (Neg:<1:20)
== END | disposition home or self-care (01) ==
LOC: LAB 08:31
PROVIDERS: PCP Family Medicine; Referring Provider Internal Medicine; Visit Provider Internal Medicine
DX: K76.0 Fatty (change of) liver, not elsewhere classified (principal); E11.8 Type 2 diabetes mellitus with unspecified complications; K58.0 Irritable bowel syndrome with diarrhea; K22.70 Barrett's esophagus without dysplasia; E03.8 Other specified hypothyroidism; E55.9 Vitamin D deficiency, unspecified
CPT/HCPCS: 36415; 80053; 80061; 81001; 82105; 82164; 82306; 82390; 82525; 82728; 83036; 83516; 83540; 83550; 83615; 83735; 84439; 84443; 85025; 85610; 86038; 86140; 86225; 86235; 86256; 86664; 86665; 86703

== ENCOUNTER → 2024-03-18 | Outpatient (CLI) | payer MEDICARE, OTHER, SELFPAY ==
--- NOTE | 2024-03-18 15:59 | BI_ITS ---
MAMMOGRAPHY - BILATERAL SCREENING REASON FOR EXAM: Female, 69 years old. Routine annual screening examination. PERTINENT HISTORY: Non-contributory. TECHNIQUE: Digital bilateral breast kenyetta (3D mammographic acquisition) in the CC and MLO projections. 2-D mediolateral oblique (MLO) and craniocaudad (CC) views of both breasts were obtained. CAD: Full Field Digital Mammography with Computer Added Detection was performed. COMPARISON: Comparison is made with prior study dated February 24, 2023 and February 22, 2022. FINDINGS: Breast Composition: There are scattered areas of fibroglandular density. There are no dominant masses or suspicious calcifications. Stable asymmetric breast tissue were more breast tissue is seen in the upper outer aspect of the right breast as compared to the left side. Stable bilateral fat containing axillary lymph nodes. No other significant abnormalities are identified. There has been no significant change since the prior study. BI/SCRN MAMM (CAD)W/KENYETTA BILAT IMPRESSION: Stable bilateral screening mammogram. Yearly follow-up mammogram recommended. (A) ASSESSMENT CATEGORY: BIRADS Category 2: Benign. A letter regarding these results will be sent to the patient by the facility within 30 days. Approximately 10% of breast cancers are not detected by mammography. A normal mammogram should not delay biopsy of a clinically suspicious abnormality. [id number] Electronically Signed: Jose Carr MD at 8:30 EDT ,
== END | disposition home or self-care (01) ==
LOC: OPBI 15:58
PROVIDERS: PCP Family Medicine; Referring Provider Family Medicine; Visit Provider Family Medicine
DX: Z12.31 Encounter for screening mammogram for malignant neoplasm of breast (principal)
CPT/HCPCS: 77063; 77067

== ENCOUNTER → 2024-03-23 | Outpatient (CLI) | payer MEDICARE, OTHER, SELFPAY ==
[2024-03-23 17:25] LABS: Hemoglobin A1c 6.7 % (3.8-5.6)
== END | disposition home or self-care (01) ==
LOC: MTLAB 12:34
PROVIDERS: PCP Family Medicine; Referring Provider Family Medicine; Visit Provider Family Medicine
DX: E11.8 Type 2 diabetes mellitus with unspecified complications (principal)
CPT/HCPCS: 36415; 83036

== ENCOUNTER → 2024-05-04 | Outpatient (CLI) | payer MEDICARE, OTHER, SELFPAY ==
[2024-05-04 06:51] LABS: Mucous, Urine 0 SEEN /hpf (<or=2+); Red Blood Cells-Urine 0 SEEN /hpf (0-5)
[2024-05-04 07:07] LABS: Absolute Lymphocyte Count 1.67 X10^3/uL (0.83-4.51); Absolute Neutrophil Count 4.1 X10^3/uL (2.0-7.7); Basophil# 0.02 X10^3/uL; Basophil% 0.3 % (0-1); Eosinophil# 0.33 X10^3/uL; Eosinophils% 4.9 % (0-5); Hematocrit 42.9 % (37-47); Hemoglobin 13.5 g/dL (12.0-15.0); Lymphocyte # 1.67 X10^3/ul (0.83-4.51); Lymphocyte % 24.6 % (19-41); Mean Corp Hgb Conc 31.5 g/dL (32-36); Mean Corpuscular Hgb 27.7 pg (27.0-32.0); Mean Corpuscular Volume 87.9 fL (81-99); Mean Platelet Vol. 10.3 fl (6.2-12.0); Monocyte% 10.3 % (0-10); NRBC Flagged by Analyzer 0 % (0-5); Neutrophil # 4.05 X10^3/uL (2.7-7.7); Neutrophil % 59.6 % (47-70); Platelet Count 230 K/mm3 (150-450); RBC Distribution Width CV 13.2 % (11.6-14.6); RBC Distribution Width SD 41.9 fl (35.1-43.9); Red Blood Count 4.88 M/mm3 (4.2-5.4); White Blood Count 6.8 K/mm3 (4.4-11.0)
[2024-05-04 07:18] LABS: Color, Urine Yellow (Yellow); Glucose, Dipstick 1000 mg/dl (Normal); Ketone-Dipstick 5 mg/dl (Negative); Leukocyte Esterase-Dipstick 500 /ul (Negative); Nitrite-Dipstick Negative (Negative); Occult Blood-Urine Negative /ul (Negative); Protein-Dipstick Negative (Negative); Urine Bilirubin Dipstick Negative (Negative); Urine Clarity Sl. Cloudy (Clear); Urine Urobilinogen Normal (Normal); Urine pH 6.5 (5.0 - 8.0)
[2024-05-04 07:25] LABS: Bacteria RARE /hpf (None Seen); Squamous Epithelial Cells - UA 0-5 SEEN /hpf (5-10); White Blood Cells 10-25 SEEN /hpf (0-5)
[2024-05-04 07:34] LABS: Microalbumin,Random Urine 14.1 mg/L (NO RANGE EST.); Microalbumin:Creatinine Ratio 10.4 mg/g CRE (<30 mg/g CRE)
[2024-05-04 07:41] LABS: ALB/GLOB Ratio 0.9 RATIO (0.9-2.4); AST(SGOT) 29 U/L (15-37); Alanine Aminotransfer ALT/SGPT 39 U/L (13-56); Albumin, Serum 3.6 g/dL (3.2-5.0); Alkaline Phosphatase 77 U/L (45-117); Anion Gap 8 (5-15); BUN 15 mg/dL (7-18); BUN/Creat Ratio 14.4 RATIO (10-20); Calcium,Total 9.3 mg/dL (8.5-10.1); Chloride 102 mmol/L (98-107); Cholesterol 100 mg/dL (200); Creatinine, Serum 1.04 mg/dL (0.55-1.02); EST Glomerular Filtration Rate 56 mL/min (>60); Est Glom Filt Rate - Afr Amer 68 mL/min (>60); Globulin 3.9 g/dL (2.2-4.2); Glucose 191 mg/dL (74-106); High Density Lipoprotein 54 mg/dL; Magnesium 1.5 mg/dL (1.6-2.6); Potassium 3.3 mmol/L (3.5-5.1); Protein, Total 7.5 g/dL (6.4-8.2); Sodium Level 138 mmol/L (136-145); T4 Free Direct 1.15 ng/dL (0.76-1.46); Thyroid Stim Hormone (TSH) 1.68 uIU/mL (0.358-3.74); Triglycerides 69 mg/dL; Very Low Density Lipoprotein 14 mg/dL (5-40)
[2024-05-04 07:55] LABS: Vitamin D,25 Hydroxy 67.6 ng/mL
[2024-05-04 08:23] LABS: Hemoglobin A1c 6.6 % (3.8-5.6)
== END | disposition home or self-care (01) ==
LOC: LAB 06:43
PROVIDERS: PCP Family Medicine; Visit Provider Family Medicine
DX: E11.8 Type 2 diabetes mellitus with unspecified complications (principal); E03.8 Other specified hypothyroidism; E55.9 Vitamin D deficiency, unspecified
CPT/HCPCS: 36415; 80053; 80061; 81001; 82043; 82306; 82570; 83036; 83735; 84439; 84443; 85025

== ENCOUNTER → 2024-05-14 | Outpatient (CLI) | payer MEDICARE, OTHER, SELFPAY ==
[2024-05-14 17:56] LABS: Anion Gap 7 (5-15); BUN 12 mg/dL (7-18); BUN/Creat Ratio 12.2 RATIO (10-20); Calcium,Total 9.3 mg/dL (8.5-10.1); Chloride 105 mmol/L (98-107); Creatinine, Serum 0.98 mg/dL (0.55-1.02); EST Glomerular Filtration Rate 60 mL/min (>60); Est Glom Filt Rate - Afr Amer 72 mL/min (>60); Glucose 168 mg/dL (74-106); Potassium 3.3 mmol/L (3.5-5.1); Sodium Level 140 mmol/L (136-145)
== END | disposition home or self-care (01) ==
LOC: MFPLAB 16:16
PROVIDERS: PCP Family Medicine; Visit Provider Family Medicine
DX: R94.4 Abnormal results of kidney function studies (principal)
CPT/HCPCS: 36415; 80048

== ENCOUNTER → 2024-07-07 | Outpatient (CLI) | payer MEDICARE, OTHER, SELFPAY ==
--- NOTE | 2024-07-07 15:55 | RAD_ITS ---
EXAM: XR CHEST, 2 VIEWS CLINICAL INDICATION: bronchitis TECHNIQUE: Frontal and lateral views of the chest. COMPARISON: 10/17/2023 FINDINGS: LUNGS AND PLEURAL SPACES: No significant abnormality. No consolidation or edema. No pneumothorax. No effusion. HEART: No significant abnormality. Cardiac silhouette not enlarged. MEDIASTINUM: Central airways and mediastinal contour are unremarkable. BONES/JOINTS: No significant abnormality. No acute fracture. SOFT TISSUES: No significant abnormality. RAD/Chest PA and Lateral IMPRESSION: No radiographic evidence of acute cardiopulmonary disease. Electronically Signed: Telly Butterfield DO at 21:01 EDT ,
== END | disposition home or self-care (01) ==
LOC: MTRAD 15:53
PROVIDERS: PCP Family Medicine; Referring Provider Family Medicine; Visit Provider Family Medicine
DX: J20.9 Acute bronchitis, unspecified (principal)
CPT/HCPCS: 71046

== ENCOUNTER → 2024-08-12 | Outpatient (CLI) | payer MEDICARE, OTHER, SELFPAY ==
[2024-08-12 07:33] LABS: Absolute Lymphocyte Count 1.57 X10^3/uL (0.83-4.51); Absolute Neutrophil Count 2.4 X10^3/uL (2.0-7.7); Basophil# 0.03 X10^3/uL; Basophil% 0.6 % (0-1); Eosinophil# 0.35 X10^3/uL; Eosinophils% 7.3 % (0-5); Hematocrit 41.1 % (37-47); Hemoglobin 13.2 g/dL (12.0-15.0); Lymphocyte # 1.57 X10^3/ul (0.83-4.51); Lymphocyte % 32.6 % (19-41); Mean Corp Hgb Conc 32.1 g/dL (32-36); Mean Corpuscular Hgb 28.7 pg (27.0-32.0); Mean Corpuscular Volume 89.3 fL (81-99); Mean Platelet Vol. 9.7 fl (6.2-12.0); Monocyte# 0.44 X10^3/uL; Monocyte% 9.1 % (0-10); NRBC Flagged by Analyzer 0 % (0-5); Neutrophil # 2.41 X10^3/uL (2.7-7.7); Neutrophil % 50.2 % (47-70); Platelet Count 264 K/mm3 (150-450); RBC Distribution Width CV 13.4 % (11.6-14.6); RBC Distribution Width SD 43.5 fl (35.1-43.9); White Blood Count 4.8 K/mm3 (4.4-11.0)
[2024-08-12 07:48] LABS: Prothrombin Time (Protime)PT. 13.6 SECONDS (11.7-14.9)
[2024-08-12 07:51] LABS: Hemoglobin A1c 6.9 % (3.8-5.6); Vitamin D,25 Hydroxy 71.5 ng/mL
[2024-08-12 08:11] LABS: ALB/GLOB Ratio 0.9 RATIO (0.9-2.4); AST(SGOT) 33 U/L (15-37); Alanine Aminotransfer ALT/SGPT 37 U/L (13-56); Albumin, Serum 3.7 g/dL (3.2-5.0); Alkaline Phosphatase 75 U/L (45-117); Anion Gap 11 (5-15); BUN 17 mg/dL (7-18); BUN/Creat Ratio 17.5 RATIO (10-20); Calcium,Total 9.3 mg/dL (8.5-10.1); Chloride 106 mmol/L (98-107); Cholesterol 126 mg/dL (200); Creatinine, Serum 0.97 mg/dL (0.55-1.02); EST Glomerular Filtration Rate 61 mL/min (>60); Est Glom Filt Rate - Afr Amer 74 mL/min (>60); Glucose 179 mg/dL (74-106); High Density Lipoprotein 63 mg/dL; Magnesium 1.7 mg/dL (1.6-2.6); Potassium 3.7 mmol/L (3.5-5.1); Protein, Total 7.7 g/dL (6.4-8.2); Sodium Level 142 mmol/L (136-145); T4 Free Direct 1.05 ng/dL (0.76-1.46); Triglycerides 79 mg/dL; Very Low Density Lipoprotein 16 mg/dL (5-40)
[2024-08-12 08:16] LABS: CRP < 2.90 mg/L (0.0-3.0); Phosphorus 4.2 mg/dL (2.5-4.9)
== END | disposition home or self-care (01) ==
LOC: LAB 06:42
PROVIDERS: Internal Medicine; PCP Family Medicine; Referring Provider Family Medicine; Visit Provider Family Medicine
DX: E11.8 Type 2 diabetes mellitus with unspecified complications (principal); E03.8 Other specified hypothyroidism; E55.9 Vitamin D deficiency, unspecified; K76.0 Fatty (change of) liver, not elsewhere classified; K58.0 Irritable bowel syndrome with diarrhea; K22.70 Barrett's esophagus without dysplasia
CPT/HCPCS: 36415; 80053; 80061; 82306; 83036; 83735; 84100; 84439; 84443; 85025; 85610; 86140

== ENCOUNTER → 2024-11-23 | Outpatient (CLI) | payer MEDICARE, OTHER, SELFPAY ==
--- NOTE | 2024-11-23 07:18 | US_ITS ---
PROCEDURE: ABD LIMITED W/ ELASTOGRAPHY REASON FOR EXAM: Fatty infiltration of the liver. COMPARISON: Comparison is made with prior study dated December 20, 2023. TECHNIQUE: Right upper quadrant abdominal ultrasound. Y'all ElastQ Imaging shear wave elastography for non-invasive assessment of liver tissue stiffness. [employer]'all EPIQ Elite. FINDINGS: LIVER: Size: Enlarged (hepatomegaly) Length: 21.1 cm cm Echotexture: Diffusely echogenic suggesting fatty infiltration Contour: Normal Lesions: None identified Elastography: EQI Med: 9.5 kPa EQI Med Vlad: 1.77 m/s IQR/Med: 14 %* GALLBLADDER: Normal COMMON BILE DUCT: Normal it measures 5 mm.. PANCREAS: Normal Visualized portions of the right kidney are unremarkable. There is a 2.5 cm x 2.3 cm x 2.4 cm renal cyst. Findings suggestive of multiple tiny nonobstructive intrarenal calculi. No right upper quadrant ascites. US/ABD Limited w/ Elastography IMPRESSION: MODERATE TO SEVERE HEPATIC FIBROSIS Reference Values: SRU <1.37 m/s (5.7kPa): No to mild fibrosis 1.37 m/s - 2.2 m/s: Moderate to severe fibrosis >2.2 m/s (15kPa): Significant fibrosis / cirrhosis METAVIR Score F2 or higher: 1.34 m/s (5.7kPa) F3 or higher: 1.55 m/s (7.3kPa) F4: 1.80 m/s (10kPa) * If the IQR/Med is >30%, the variance in the measurements is a large and the a ccuracy of the measurement may be in question. Reading Location: [id number]
[2024-11-23 09:06] LABS: Absolute Lymphocyte Count 1.36 X10^3/uL (0.83-4.51); Absolute Neutrophil Count 3.6 X10^3/uL (2.0-7.7); Basophil# 0.05 X10^3/uL; Basophil% 0.8 % (0-1); Eosinophil# 0.31 X10^3/uL; Eosinophils% 5.1 % (0-5); Hematocrit 44.6 % (37-47); Hemoglobin 14.8 g/dL (12.0-15.0); Lymphocyte # 1.36 X10^3/ul (0.83-4.51); Lymphocyte % 22.3 % (19-41); Mean Corp Hgb Conc 33.2 g/dL (32-36); Mean Corpuscular Hgb 29.1 pg (27.0-32.0); Mean Corpuscular Volume 87.6 fL (81-99); Mean Platelet Vol. 10.3 fl (6.2-12.0); Monocyte# 0.78 X10^3/uL; Monocyte% 12.8 % (0-10); NRBC Flagged by Analyzer 0 % (0-5); Neutrophil # 3.58 X10^3/uL (2.7-7.7); Neutrophil % 58.7 % (47-70); Platelet Count 234 K/mm3 (150-450); RBC Distribution Width CV 13.3 % (11.6-14.6); RBC Distribution Width SD 42.7 fl (35.1-43.9); Red Blood Count 5.09 M/mm3 (4.2-5.4); White Blood Count 6.1 K/mm3 (4.4-11.0)
[2024-11-23 09:15] LABS: Vitamin D,25 Hydroxy 89.1 ng/mL
[2024-11-23 09:22] LABS: ALB/GLOB Ratio 0.9 RATIO (0.9-2.4); AST(SGOT) 26 U/L (15-37); Alanine Aminotransfer ALT/SGPT 32 U/L (13-56); Albumin, Serum 4.1 g/dL (3.2-5.0); Alkaline Phosphatase 81 U/L (45-117); Anion Gap 8 (5-15); BUN 16 mg/dL (7-18); BUN/Creat Ratio 16.3 RATIO (10-20); Calcium,Total 9.8 mg/dL (8.5-10.1); Chloride 100 mmol/L (98-107); Cholesterol 133 mg/dL (200); Creatinine, Serum 0.98 mg/dL (0.55-1.02); EST Glomerular Filtration Rate 60 mL/min (>60); Est Glom Filt Rate - Afr Amer 72 mL/min (>60); Globulin 4.5 g/dL (2.2-4.2); Glucose 165 mg/dL (74-106); High Density Lipoprotein 73 mg/dL; Magnesium 1.5 mg/dL (1.6-2.6); Potassium 3.9 mmol/L (3.5-5.1); Protein, Total 8.6 g/dL (6.4-8.2); Sodium Level 138 mmol/L (136-145); T4 Free Direct 1.34 ng/dL (0.76-1.46); Triglycerides 99 mg/dL; Very Low Density Lipoprotein 20 mg/dL (5-40)
[2024-11-23 09:46] LABS: Hemoglobin A1c 6.6 % (3.8-5.6)
[2024-11-23 11:10] LABS: Microalbumin,Random Urine 30.7 mg/L (NO RANGE EST.); Microalbumin:Creatinine Ratio 20.7 mg/g CRE (<30 mg/g CRE)
== END | disposition home or self-care (01) ==
PROVIDERS: PCP Family Medicine; Referring Provider Student in an Organized Health Care Education/Training Program; Visit Provider Student in an Organized Health Care Education/Training Program
DX: K76.0 Fatty (change of) liver, not elsewhere classified (principal); E11.8 Type 2 diabetes mellitus with unspecified complications; E03.8 Other specified hypothyroidism; E55.9 Vitamin D deficiency, unspecified
CPT/HCPCS: 36415; 76705; 76981; 80053; 80061; 82043; 82306; 82570; 83036; 83735; 84439; 84443; 85025

== ENCOUNTER 2025-01-26 11:16 | Day surgery (SDC) | payer MEDICARE, OTHER, SELFPAY ==
[2025-01-26] VITALS (8 sets, daily range): BP systolic 101–123; BP diastolic 58–76; PULSE 66–77; RESP 16–17; TEMP 36–36.6; O2SAT 95–100; BMI 33.8
--- NOTE | 2025-01-26 11:50 | PCM.PRE.AN2 ---
ASA Classification* ASA Classification ASA Classification: 3 Assessment & Plan Anesthesia* Anesthesia Assessment Anesthesia Assessment: Discussed sedation and/or anesthesia options, risks, benefits, and alternatives with patient/parents/legal guardian/POA. Questions invited. The patient/parents/legal guardian/POA seems to understand and agrees to proceed with anesthesia plan. Reviewed the physical assessment, medical history, allergy history and patient home medications list prior to surgery/procedure/anesthetic and documented any changes. Performed airway and anesthesia risk assessments. Anesthesia Type Anesthesia Type: MAC Anesthesia Focused Assessment* Airway Assessment Mouth opens: >3 cm Mallampati Score: II Focused Labs Anesthesia Preop lab: CBC WBC 6.1 K/mm3 (4.4-11.0) 11/23/24 07:09 11/23/24 RBC 5.09 M/mm3 (4.2-5.4) 11/23/24 07:09 11/23/24 Hgb 14.8 g/dL (12.0-15.0) 11/23/24 07:09 11/23/24 Hct 44.6 % (37-47) 11/23/24 07:09 11/23/24 Plt Count 234 K/mm3 (150-450) 11/23/24 07:09 11/23/24 CHEMISTRY Potassium 3.9 mmol/L (3.5-5.1) 11/23/24 07:09 11/23/24 Sodium 138 mmol/L (136-145) 11/23/24 07:09 11/23/24 Magnesium 1.5 mg/dL (1.6-2.6) L 11/23/24 07:09 11/23/24 Phosphorus 4.2 mg/dL (2.5-4.9) 08/12/24 06:49 08/12/24 BUN 16 mg/dL (7-18) 11/23/24 07:09 11/23/24 Creatinine 0.98 mg/dL (0.55-1.02) 11/23/24 07:09 11/23/24 Glucose 165 mg/dL (74-106) H 11/23/24 07:09 11/23/24 POC Glucose 206 mg/dL (74-106) H 12/22/23 05:48 12/22/23 TSH 5.590 uIU/mL (0.358-3.740) H 11/23/24 07:09 11/23/24 COAG PT 13.6 SECONDS (11.7-14.9) 08/12/24 06:49 08/12/24 Pre-Assessment Diagnosis/Proposed Procedure Planned Operative Procedure(s): EGD Anesthesia History Anesthesia History - automatic mold sander: Anesthesia History - automatic mold sander Hx Hospitalization No 01/20/25 13:36 Any Problems With Anesthesia Yes: NAUSEA 01/20/25 13:36 Cholinesterase deficiency No 01/20/25 13:36 You/Your Family Experience No 01/20/25 13:36 fever (hyperthermia) with Relationship Recent Exposure to Contagious No 12/22/23 05:45 Disease Does patient have nerve No 01/20/25 13:36 stimulator Patient instructed to have device shut off --Does patient have Pacemaker or ICD? When Was Last Pacemaker Check QUESTION #4 FULL TEXT: You/Your Family Experience fever (hyperthermia) with Anesthesia Last Oral Intake Last Oral intake: Last Oral Intake NPO since Meds taken in AM with sips of water? Meds patient instructed to take am of surgery PONV PONV - automatic mold sander: PONV - automatic mold sander Female Yes 01/20/25 13:36 HX of Motion Sickness No 01/20/25 13:36 HX of N/V After Surgery Yes 01/20/25 13:36 Non-Smoker Yes 01/20/25 13:36 Duration of Surgery greater No 01/20/25 13:36 than 60 minutes Number of Risk Factors 3 01/20/25 13:36 PONV Score Moderate Risk 01/20/25 13:36 Height & Weight Height & Weight: Anesthesia: Height & Weight Height 5 ft 2 in 01/27/24 14:59 Respiratory Assessment Respiratory Assessment - automatic mold sander: Respiratory Tract Infection Hx - automatic mold sander Hx Respiratory Tract Infection No 01/20/25 13:36 STOP Sleep Apnea STOP Sleep Apnea - automatic mold sander: STOP Sleep Apnea - automatic mold sander Hx Hypertension No 01/20/25 13:36 Hx Sleep Apnea No 01/20/25 13:36 CPAP No 12/17/22 10:55 BIPAP No 12/17/22 10:55 Do you snore loudly (louder No 01/20/25 13:36 than talking or can be heard Do you often feel tired/ No 01/20/25 13:36 fatigued/ sleepy during daytime? Has anyone observed you stop No 01/20/25 13:36 breathing during sleep? STOP Results Negative 01/20/25 13:36 QUESTION #5 FULL TEXT : Do you snore loudly (louder than talking or can be heard through closed doors)? Tobacco Use History Tobacco Use History - automatic mold sander: Tobacco Use History - automatic mold sander Tobacco Use Smoking Status Never smoker 01/20/25 13:36 Hx Tobacco Use No 01/20/25 13:36 Years Smoking Packs Smoked per Day Smoking Cessation Date was within the last 15 years Hx Smoking Cessation Date Hx Smoking Cessation Counseling Hematologic Medial History Hematologic Hx - automatic mold sander: Hematologic Medical Hx - nip wrapper Hx of Blood Transfusion No 01/20/25 13:36 Hx of Transfusion in last 3 No 01/20/25 13:36 Months Date of Last Transfusion (if within last 3 months) Ever experience any problems No 01/20/25 13:36 with transfusion(s)? Specify any problems Hx of Preganancy in last 3 No 01/20/25 13:36 Months Nurse Filling Out Transfusion [facility] 01/20/25 13:36 & Questions: Date: 01/20/25 01/20/25 13:36 Time: 13:44 01/20/25 13:36 Patient unable to answer at this time (ie. confused, unrespo /Reproduction History /Reproductive History - automatic mold sander: /Reproductive Hx- automatic mold sander Hx Now No 01/20/25 13:36 Gestational Age (in weeks): EDC: Hx Hx Para [facility] Medical History History of renal disease Restless legs Non-smoker Post-menopausal Cancer Thyroid disease Diabetes Inflammatory arthritis Arthritis Kidney stones High cholesterol History of IBS History of stress test History of irregular heartbeat Home Medications ?Medication ?Instructions ?Recorded ?Last Taken ?Type atorvastatin 10 mg tablet 10 mg PO QHS 03/01/15 Unknown History hydrochlorothiazide 25 mg tablet 25 mg PO DAILY 03/01/15 Unknown History levothyroxine 75 mcg tablet 75 mcg PO DAILY 03/01/15 07/30/19 08:00 History metformin 1,000 mg tablet 1,000 mg PO BIDCM 03/01/15 Unknown History multivitamin with folic acid 400 1 tab PO DAILY 03/01/15 Unknown History mcg tablet (Thera) cetirizine 10 mg capsule (All Day 10 mg PO PRN PRN ALLERGIES 03/15/15 Unknown History Allergy (cetirizine)) calcium carbonate 1,000 mg PO DAILY 08/12/18 Unknown History hydroxychloroquine 200 mg tablet 200 mg PO BID 08/12/18 Unknown History (Plaquenil) escitalopram oxalate 10 mg tablet 10 mg PO DAILY 07/23/19 Unknown History blood sugar diagnostic (FreeStyle 08/06/22 Unknown History Test strips) cholecalciferol (vitamin D3) 50 50 mcg PO DAILY 08/06/22 Unknown History mcg (2,000 unit) capsule empagliflozin 25 mg tablet 25 mg PO DAILY 08/06/22 Unknown History (Jardiance) melatonin 5 mg capsule 5 mg PO QHS PRN sleep 08/06/22 Unknown History potassium citrate 5 mEq (540 mg) 1,620 mg PO BID 08/06/22 Unknown History tablet,extended release (Urocit-K 5) allopurinol 300 mg tablet 100 mg PO DAILY 10/18/22 Unknown History atenolol 25 mg tablet 25 mg PO DAILY 10/18/22 12/22/23 04:30 History semaglutide 0.25 mg or 0.5 mg (2 0.5 mg subcut QWEEK 07/23/24 01/14/25 History mg/3 mL) subcutaneous pen injector (Ozempic) pantoprazole 40 mg tablet,delayed 40 mg PO BID acid reflux 90 days 08/16/24 Unknown Rx release #180 tabs magnesium chloride 64 mg 128 mg (2 x 64 mg magnesium) PO 12/16/24 Unknown Rx (magnesium chloride) tablet DAILY #120 tabs diphenoxylate-atropine 2.5 1 tab PO Q8H PRN diarrhea 01/20/25 Unknown History mg-0.025 mg tablet Allergy/AdvReac Type Severity Reaction Status Date / Time acetaminophen (From Vicodin) Allergy Other Verified 01/20/25 13:30 hydrocodone (From Vicodin) Allergy Other Verified 01/20/25 13:30 Sulfa (Sulfonamide Allergy Rash Verified 01/20/25 13:30 Antibiotics) Family History Brother Leukemia Brother No problems noted. Father No problems noted. Mother Osteoarthritis Daughter No problems noted. Son No problems noted. Daughter No problems noted. Surgical History Hx of section Hx of glossectomy Hx of nephrostomy History of wisdom tooth extraction History of lithotripsy History of ureteroscopy History of partial knee replacement Hx of repair of rotator cuff History of lingual frenulectomy Social History Smoking Status: Never smoker alcohol intake: never substance use type: does not use Review of Systems (Anesthesia) ROS Narrative System reviewed and no additional complaints, except as documented.
--- NOTE | 2025-01-26 12:09 | PCM.HP.STD ---
HPI - General General Date of Admission: 01/26/25 Date of Service: 01/26/25 Chief Complaint: oliva's esophagus HPI Narrative RITCHIE DUMONT, is a 69 F who presents for surveillance of Oliva's esophagus . Last visit 12.19.22 for discussion of EGD and colonoscopy results. She saw her primary care physician Dr Durham since her endoscopies and he started her on omeprazole 40 mg qam for new diagnosis of Oliva's esophagus. EGD had appearance of long-segment Oliva's which was confirmed on biopsy, negative for dysplasia; significant bile in the stomach; no pathologic diagnosis from duodenal biopsies. Colonoscopy revealed diverticulosis, no pathologic diagnosis from random colon biopsies. Diarrhea is significantly improved with cholestyramine in morning, doesn't seem like it lasts all day, loperamide in pm. treated with vancomycin for C diff. positive for C diff A/B antigen, negative for C diff toxin, positive for PCR. negative test for EPI, neg for Crohn's, neg for celiac 20 yr hx of IBS-D. Viberzi was effective but cost prohibitive. No dietary triggers in particular. No relief with Lotronex. Never on xifaxan. Never on lomotil. On metformin for 15 yrs. Tested negative for celiac in 2017. Normal fecal elastase in 2021. No melena or hematochezia. Gets a discomfort in the LLQ before diarrhea, that resolves after having multiple bouts of diarrhea in the morning. 12/23/22 EGD and Colonoscopy Impression: - Esophageal mucosal changes consistent with long-segment Oliva's esophagus. Biopsied. - Bile gastritis. - Erythematous duodenopathy. Biopsied. Impression: - Congested mucosa in the sigmoid colon, at the splenic flexure and at the hepatic flexure. Biopsied. - Diverticulosis in the sigmoid colon. MICROSCOPIC DIAGNOSIS A. Duodenum, biopsy: Fragments of duodenal mucosa, no pathologic diagnosis. B. Distal esophagus, biopsy: Fragments of gastroesophageal mucosa with intestinal metaplasia (goblet cell metaplasia), consistent with Oliva's esophagus. Chronic inflammation. Negative for dysplasia. See comment. C. Colon, random biopsy: Fragments of colonic mucosa, no pathologic diagnosis. US abd limited .03.26.2021- Liver measures 21.6cm with fatty infiltration OV 09.29.23- Pt here to follow up regarding her liver. Received fax from [facility] to review her elevated LFT's. Says she was told she had fatty liver before. Diarrhea has been controlled with cholestyramine and prn Lomotil. Denies abdominal pain, cramping and bloating. Heartburn is controlled with Omeprazole. US abd/ elastography 12.20.23- Liver measures 20.7cm Stiffness 8.1kPa EGD 12.22.23- Long segment Oliva's Esophagus, acute gastritis Pathology: extensive intestinal metaplasia, neg. dysplasia Fib-4 01.20.24 1.47 OV 01.27.24- Pt stable since last visit. States her bowels are normal as long as she takes one Lomotil in the morning and the Cholestyramine in the evening. Denies any abdominal pain, cramping or bloating. No heartburn. Continues Omeprazole 40 mg daily. Magnesium is low even she is taking magnesium oxide 400 mg twice daily. Discussed the lab, EGD findings, pathology and imaging OV 07.23.24 Pt has been doing well since last visit. She started Ozempic a few months back and was having some diarrhea from this. She stopped if for her trip to [place] but has since restarted it. Her diarrhea is controlled now with Lomotil daily and cholestyramine daily. If she has more diarrhea she says she will take more. 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 Overall she is happy with how she is doing. [facility] Medical History History of renal disease Restless legs Non-smoker Post-menopausal Cancer Thyroid disease Diabetes Inflammatory arthritis Arthritis Kidney stones High cholesterol History of IBS History of stress test History of irregular heartbeat Home Medications ?Medication ?Instructions ?Recorded ?Last Taken ?Type atorvastatin 10 mg tablet 10 mg PO QHS 03/01/15 Unknown History hydrochlorothiazide 25 mg tablet 25 mg PO DAILY 03/01/15 Unknown History levothyroxine 75 mcg tablet 75 mcg PO DAILY 03/01/15 07/30/19 08:00 History metformin 1,000 mg tablet 1,000 mg PO BIDCM 03/01/15 Unknown History multivitamin with folic acid 400 1 tab PO DAILY 03/01/15 Unknown History mcg tablet (Thera) cetirizine 10 mg capsule (All Day 10 mg PO PRN PRN ALLERGIES 03/15/15 Unknown History Allergy (cetirizine)) calcium carbonate 1,000 mg PO DAILY 08/12/18 Unknown History hydroxychloroquine 200 mg tablet 200 mg PO BID 08/12/18 Unknown History (Plaquenil) escitalopram oxalate 10 mg tablet 10 mg PO DAILY 07/23/19 Unknown History blood sugar diagnostic (FreeStyle 08/06/22 Unknown History Test strips) cholecalciferol (vitamin D3) 50 50 mcg PO DAILY 08/06/22 Unknown History mcg (2,000 unit) capsule empagliflozin 25 mg tablet 25 mg PO DAILY 08/06/22 Unknown History (Jardiance) melatonin 5 mg capsule 5 mg PO QHS PRN sleep 08/06/22 Unknown History potassium citrate 5 mEq (540 mg) 1,620 mg PO BID 08/06/22 Unknown History tablet,extended release (Urocit-K 5) allopurinol 300 mg tablet 100 mg PO DAILY 10/18/22 Unknown History atenolol 25 mg tablet 25 mg PO DAILY 10/18/22 12/22/23 04:30 History semaglutide 0.25 mg or 0.5 mg (2 0.5 mg subcut QWEEK 07/23/24 01/14/25 History mg/3 mL) subcutaneous pen injector (Ozempic) pantoprazole 40 mg tablet,delayed 40 mg PO BID acid reflux 90 days 08/16/24 Unknown Rx release #180 tabs magnesium chloride 64 mg 128 mg (2 x 64 mg magnesium) PO 12/16/24 Unknown Rx (magnesium chloride) tablet DAILY #120 tabs diphenoxylate-atropine 2.5 1 tab PO Q8H PRN diarrhea 01/20/25 Unknown History mg-0.025 mg tablet Allergy/AdvReac Type Severity Reaction Status Date / Time acetaminophen (From Vicodin) Allergy Other Verified 01/20/25 13:30 hydrocodone (From Vicodin) Allergy Other Verified 01/20/25 13:30 Sulfa (Sulfonamide Allergy Rash Verified 01/20/25 13:30 Antibiotics) Family History Brother Leukemia Brother No problems noted. Father No problems noted. Mother Osteoarthritis Daughter No problems noted. Son No problems noted. Daughter No problems noted. Surgical History Hx of section Hx of glossectomy Hx of nephrostomy History of wisdom tooth extraction History of lithotripsy History of ureteroscopy History of partial knee replacement Hx of repair of rotator cuff History of lingual frenulectomy Social History Smoking Status: Never smoker alcohol intake: never substance use type: does not use ROS Constitutional Constitutional: Denies fatigue, fever(s), poor appetite, weight gain or weight loss Gastrointestinal Gastrointestinal: Denies belching, bloating, change in bowel habits, change in stool character, chewing difficulty, coffee ground emesis, constipation, cramping, diarrhea, dyspepsia, dysphagia, early satiety, excessive flatus, fecal incontinence, heartburn, hematemesis, hematochezia, hemorrhoids, loose stools, melena, nausea, odynophagia, rectal bleeding, tenesmus, vomiting or weight changes Physical Exam Const alert, oriented x3, no apparent distress and healthy appearing General Appearance: cooperative GI normal to inspection, nondistended, normoactive bowel sounds, soft to palpation, non-tender and non-distended Percussion: normal to percussion Rectal Exam: deferred Assessment & Plan Assessment/Plan (1) Oliva's esophagus: QUALIFIERS: Oliva's esophagus type: without dysplasia Qualified Code(s): K22.70 - Oliva's esophagus without dysplasia (2) Cirrhosis: (3) NAFLD (nonalcoholic fatty liver disease): (4) Duodenogastric bile reflux: PLAN: Plan Assessment and Plan Assessment and Plan (1) NAFLD (nonalcoholic fatty liver disease): Status: Chronic Plan: Pt is a 69 yo female here today for f/u. She is being seen here with I for her fatty liver. Her last elastography showing hepatomegaly and liver stiffness of 8.1 kPa. She started ozempic for her diabetes recently which in turn may help with her fatty liver. She is having some side effects from this medication like diarrhea and nausea but she is willing to try it for a little longer. Her diarrhea is currently controlled with Lomotil daily and cholestyramine daily. She will increase the lomotil as needed.Liver elastography ordered for her to have before her next appointment in 6 months. Her last EGD in December of 2023 showed Oliva esophagus. I let her know she will need to have another in 6 months to ensure this is not progressing. She is on pantoprazole daily and I explained the importance of continue it. -Liver elastography -EGD -Continue pantoprazole -Continue Lomotil and cholestyramine -f/u in 6 months (2) Oliva's esophagus: Status: Chronic Qualifiers: Oliva's esophagus type: without dysplasia Qualified Code(s): K22.70 - Oliva's esophagus without dysplasia (3) Irritable bowel syndrome with diarrhea: Status: Chronic Orders: Orders ABD Limited w/ Elastography 4 Months K76.0 - Fatty (change of) liver, not elsewhere classified
[2025-01-26 12:38] LABS: Bedside Glucose 124 mg/dL (74-106)
--- NOTE | 2025-01-26 12:45 | EGD_PTH ---
PATIENT: RITCHIE DUMONT LOC: EN U#:[id number] AGE/SX: 69/F ROOM: RE01/26/[address]: Dr. Abdi Jackson DO : 1955 BED: DIS: 01/26/2025 SPEC #: [id number] RECD: 01/26/25 15:47 STATUS: CHITRA REGorge #: [id number] RORO: 01/26/25 12:[address]: Abdi Jackson DEPT: SURGICAL PATHOLOGY RECD BY: Aubrey Clinton ENTERED: 01/27/25 06:58 SP TYPE: EGD BIOPSY VELIA DR: Dr. Mike Durham MD Tissues: A - Gastric mucous membrane Esophagus, NOS Procedures: Immunohistochemical Stains Surgery Specimen Level IV HEADER OPERATION: EGD with biopsy PRE-OP DIAGNOSIS: Nonalcoholic fatty liver disease, Vaz's esophagus, irritable bowel syndrome with diarrhea TISSUE SUBMITTED: A- Gastric body biopsy, B- Distal esophagus biopsy MICROSCOPIC DIAGNOSIS A. Stomach, gastric body, biopsy: * Antral and oxyntic mucosa with mild chronic inflammation * The H&E and the immunostain for Helicobacter pylori organisms is negative B. Distal esophagus, biopsy: * Benign squamous epithelium * Cardiac type mucosa with mild chronic inflammation and goblet cells, negative for dysplasia MICROSCOPIC DESCRIPTION Slides are reviewed. These tests were developed and their performance characteristics determined by [facility]. They may not have been cleared or approved by the U.S. Food and Drug Administration. The FDA has determined that such clearance or approval is not necessary. The above immunohistochemical/dualISH markers are ordered and reviewed by the Pathologist. GROSS DESCRIPTION A. Received in formalin in a container labeled with the patient's name, date of , and gastric body biopsy for H. pylori and path are 2 cuello-pink fragments of mucosal tissue, each measuring 0.6 x 0.2 x 0.2 cm. Submitted in toto in A1. B. Received in formalin in a container labeled with the patient's name, date of , and distal esophagus biopsy are multiple cuello-pink fragments of mucosal tissue measuring 1.0 x 0.5 x 0.2 cm in aggregate. Submitted in toto in B1. [facility] 01/28/2025 CPT:12616x3,03018
--- NOTE | 2025-01-26 13:14 | OP.EGD_ITS ---
Patient Name: Astrid Baca Procedure Date: 01/26/2025 12:52 PM Date of : 1955 Age: 69 Procedure: Upper GI endoscopy Indications: Cirrhosis with suspected esophageal varices Providers: Abdi Jackson DO Medicines: Monitored Anesthesia Care Patient Profile: This is a 69 year old female. Refer to note in patient chart for documentation of history and physical. Patient has symptoms of chronic heartburn. Complications: No immediate complications. Procedure: Pre-Anesthesia Assessment: - Prior to the procedure, a History and Physical was performed, and patient medications and allergies were reviewed. The patient is competent. The risks and benefits of the procedure and the sedation options and risks were discussed with the patient. All questions were answered and informed consent was obtained. Patient identification and proposed procedure were verified by the physician in the pre-procedure area. Mental Status Examination: alert and oriented. Airway Examination: normal oropharyngeal airway and neck mobility. Respiratory Examination: clear to auscultation. CV Examination: normal. Prophylactic Antibiotics: The patient does not require prophylactic antibiotics. Prior Anticoagulants: The patient has taken no anticoagulant or antiplatelet agents. ASA Grade Assessment: III - A patient with severe systemic disease. After reviewing the risks and benefits, the patient was deemed in satisfactory condition to undergo the procedure. The anesthesia plan was to use monitored anesthesia care (MAC). Immediately prior to administration of medications, the patient was re-assessed for adequacy to receive sedatives. The heart rate, respiratory rate, oxygen saturations, blood pressure, adequacy of pulmonary ventilation, and response to care were monitored throughout the procedure. The physical status of the patient was re-assessed after the procedure. After obtaining informed consent, the endoscope was passed under direct vision. Throughout the procedure, the patient's blood pressure, pulse, and oxygen saturations were monitored continuously. The Endoscope was introduced through the mouth, and advanced to the second part of duodenum. The upper GI endoscopy was accomplished without difficulty. The patient tolerated the procedure well. Scope In: 1:03:36 PM Scope Out: 1:08:48 PM Total Procedure Duration Time 0 hours 5 minutes 12 seconds Findings: Small (< 5 mm) varices were found in the middle third of the esophagus and in the lower third of the esophagus. They were 5 mm in largest diameter. There were esophageal mucosal changes secondary to established long-segment Vaz's disease present in the lower third of the esophagus. The maximum longitudinal extent of these mucosal changes was 6 cm in length. Mucosa was biopsied with a cold forceps for histology in a targeted manner at intervals of 1 cm in the lower third of the esophagus. One specimen bottle was sent to pathology. Verification of patient identification for the specimen was done. Estimated blood loss was minimal. Mild portal hypertensive gastropathy was found in the cardia, in the gastric fundus and in the gastric body. Localized moderate inflammation characterized by erosions, erythema and friability was found in the gastric body. Biopsies were taken with a cold forceps for Helicobacter pylori testing. Verification of patient identification for the specimen was done. Estimated blood loss was minimal. The examined duodenum was normal. Impression: - Small (< 5 mm) esophageal varices. - Esophageal mucosal changes secondary to established long-segment Vaz's disease. Biopsied. - Portal hypertensive gastropathy. - Chronic gastritis. Biopsied. - Normal examined duodenum. Recommendation: - Discharge patient to home. - Resume previous diet. - Continue present medications. - Await pathology results. - Repeat upper endoscopy. Procedure Code(s): --- Professional --- 53289, Esophagogastroduodenoscopy, flexible, transoral; with biopsy, single or multiple CPT copyright 2021 [employer]. All rights reserved. The codes documented in this report are preliminary and upon skid machine operator review may be revised to meet current compliance requirements. Abdi Jackson DO 01/26/2025 1:14:11 PM This report has been signed electronically. Number of Addenda: 0 Note Initiated On: 01/26/2025 12:52 PM
--- NOTE | 2025-01-26 13:14 | OP.CCLET_ITS ---
01/26/2025 Mike Durham [address] [place] [address] Re : Upper GI endoscopy procedure for Astrid Rosalesbins Dear Dr. Durham This procedure was performed on Sunday, January 26, 2025. My impressions and recommendations are as follows: Impressions : - Small (< 5 mm) esophageal varices. - Esophageal mucosal changes secondary to established long-segment Vaz's disease. Biopsied. - Portal hypertensive gastropathy. - Chronic gastritis. Biopsied. - Normal examined duodenum. Recommendations : - Discharge patient to home. - Resume previous diet. - Continue present medications. - Await pathology results. - Repeat upper endoscopy. My findings are described in the full procedure note, which is enclosed. If I can be of further assistance, please feel free to contact me at . Sincerely, Abdi Jackson, 01/26/2025 1:14:11 PM This report has been signed electronically.
--- NOTE | 2025-01-26 13:29 | PCM.POST.ANE ---
Anesthesia: Postop Eval I Current Vital Signs Temperature: 97.9 F Pulse Rate: 74 Blood Pressure: 102/58 Respiratory Rate: 16 Pulse Ox: 97 Oxygen Delivery Method: Room Air Assessment Airway patent: Yes Spontaneous unlabored respirations: Yes Mental status: Awake and Calm nausea: No Vomiting: No Anesthesia Complication: No Fluid Hydration Crystalloid volume administer (ml): 30 Total IV fluid infused: 30 Progress Note Anesthesia document: Postop Eval 1 completed: Yes
--- NOTE | 2025-01-26 14:52 | PCM.POSTANE2 ---
Anesthesia Postop Eval I Sum Postop Eval Completion status Anesthesia document: Postop Eval 1 completed: Yes Anesthesia Postop Eval I Summary Anesthesia Postop Eval I Summary: Anesthesia Postop Eval I: Assessment Summary Airway patent Yes 01/26/25 13:30 [email or web address] Spontaneous unlabored Yes 01/26/25 13:30 [email or web address] respirations Mental status Awake,Calm 01/26/25 13:30 [email or web address] nausea No 01/26/25 13:30 [email or web address] Vomiting No 01/26/25 13:30 [email or web address] Anesthesia Postop Eval I: Fluid Summary Crystalloid volume administer 30 01/26/25 13:30 [email or web address] (ml) Colloids volume administered ( ml) Blood Product volume administered (ml) Total IV fluid infused 30 01/26/25 13:30 [email or web address] Anesthesia Postop Eval I: Summary Notes Anesthesia Complication No 01/26/25 13:30 [email or web address] Anesthesia Complication Comment: Post-operative progress note Anesthesia: Postop Eval II Evaluation Mental status: Awake Pain Level: 0 nausea: No Vomiting: No
== END 2025-01-26 13:47 | disposition home or self-care (01) ==
LOC: EN 11:16 → AC 11:17
PROVIDERS: PCP Family Medicine; Referring Provider Family Medicine; Visit Provider Internal Medicine Gastroenterology
PROC: 0DJ08ZZ Inspection of Upper Intestinal Tract, Via Natural or Artificial Opening Endoscopic (ICD-10-PCS; CPT 43235; principal; 2025-01-26 12:40)
DX: I85.10 Secondary esophageal varices without bleeding (principal); I85.00 Esophageal varices without bleeding; K76.6 Portal hypertension; K74.60 Unspecified cirrhosis of liver; E11.9 Type 2 diabetes mellitus without complications; K58.0 Irritable bowel syndrome with diarrhea; K31.89 Other diseases of stomach and duodenum; K22.70 Barrett's esophagus without dysplasia; K29.00 Acute gastritis without bleeding; K29.50 Unspecified chronic gastritis without bleeding; K76.0 Fatty (change of) liver, not elsewhere classified; R12 Heartburn; E78.00 Pure hypercholesterolemia, unspecified; Z79.84 Long term (current) use of oral hypoglycemic drugs; Z79.890 Hormone replacement therapy; Z79.85 Long-term (current) use of injectable non-insulin antidiabetic drugs
CPT/HCPCS: 43239; 82962; 88305; 88342; A4216; J2405

== ENCOUNTER → 2025-02-02 | Outpatient (CLI) | payer MEDICARE, OTHER, SELFPAY ==
[2025-02-02 15:54] LABS: Absolute Lymphocyte Count 1.96 X10^3/uL (0.83-4.51); Basophil# 0.06 X10^3/uL; Eosinophil# 0.26 X10^3/uL; Eosinophils% 4.4 % (0-5); Hemoglobin 13.6 g/dL (12.0-15.0); Lymphocyte # 1.96 X10^3/ul (0.83-4.51); Lymphocyte % 33.2 % (19-41); Mean Corp Hgb Conc 32.4 g/dL (32-36); Mean Corpuscular Hgb 29.2 pg (27.0-32.0); Mean Corpuscular Volume 90.3 fL (81-99); Mean Platelet Vol. 10.3 fl (6.2-12.0); Monocyte% 10.2 % (0-10); NRBC Flagged by Analyzer 0 % (0-5); Neutrophil # 3.01 X10^3/uL (2.7-7.7); Platelet Count 233 K/mm3 (150-450); RBC Distribution Width CV 13.1 % (11.6-14.6); RBC Distribution Width SD 42.7 fl (35.1-43.9); Red Blood Count 4.65 M/mm3 (4.2-5.4); White Blood Count 5.9 K/mm3 (4.4-11.0)
[2025-02-02 16:10] LABS: International Normalized Ratio 0.9; Prothrombin Time (Protime)PT. 12.7 SECONDS (11.7-14.9)
[2025-02-02 16:56] LABS: ALB/GLOB Ratio 1.3 RATIO (0.9-2.4); AST(SGOT) 27 U/L (<=31); Alanine Aminotransfer ALT/SGPT 23 U/L (<=34); Albumin, Serum 4.3 g/dL (3.4-4.8); Alkaline Phosphatase 68 U/L (35-104); Anion Gap 15 (5-15); BUN 14 mg/dL (4-19); BUN/Creat Ratio 16.5 RATIO (10-20); Calcium,Total 9.8 mg/dL (7.6-11.0); Carbon Dioxide 25.1 mmol/L (21.0-32.0); Chloride 100 mmol/L (98-108); Creatinine, Serum 0.83 mg/dL (0.70-1.20); EST Glomerular Filtration Rate 77 (>60); Globulin 3.2 g/dL (2.2-4.2); Glucose 107 mg/dL (70-99); Protein, Total 7.5 g/dL (5.9-8.4); Sodium Level 141 mmol/L (133-145); Total Bilirubin 0.25 mg/dL (0.00-1.30)
== END | disposition home or self-care (01) ==
LOC: LAB 14:56
PROVIDERS: PCP Family Medicine; Referring Provider Student in an Organized Health Care Education/Training Program; Visit Provider Student in an Organized Health Care Education/Training Program
DX: K76.0 Fatty (change of) liver, not elsewhere classified (principal)
CPT/HCPCS: 36415; 80053; 85025; 85610

== ENCOUNTER → 2025-03-15 | Outpatient (CLI) | payer MEDICARE, OTHER, SELFPAY ==
[2025-03-15 08:29] LABS: Bacteria 0 SEEN /hpf (None Seen); Mucous, Urine 0 SEEN /hpf (<or=2+); Red Blood Cells-Urine 0 SEEN /hpf (0-5); Squamous Epithelial Cells - UA 0 SEEN /hpf (5-10); White Blood Cells 0 SEEN /hpf (0-5)
[2025-03-15 10:13] LABS: Absolute Lymphocyte Count 1.38 X10^3/uL (0.83-4.51); Absolute Neutrophil Count 2.5 X10^3/uL (2.0-7.7); Basophil# 0.06 X10^3/uL; Basophil% 1.3 % (0-1); Eosinophil# 0.22 X10^3/uL; Eosinophils% 4.7 % (0-5); Hematocrit 40.9 % (37-47); Hemoglobin 13.2 g/dL (12.0-15.0); Lymphocyte # 1.38 X10^3/ul (0.83-4.51); Lymphocyte % 29.7 % (19-41); Mean Corp Hgb Conc 32.3 g/dL (32-36); Mean Corpuscular Hgb 29.1 pg (27.0-32.0); Mean Corpuscular Volume 90.1 fL (81-99); Mean Platelet Vol. 10.5 fl (6.2-12.0); Monocyte# 0.47 X10^3/uL; Monocyte% 10.1 % (0-10); NRBC Flagged by Analyzer 0 % (0-5); Platelet Count 223 K/mm3 (150-450); RBC Distribution Width CV 13.2 % (11.6-14.6); RBC Distribution Width SD 42.7 fl (35.1-43.9); Red Blood Count 4.54 M/mm3 (4.2-5.4); White Blood Count 4.6 K/mm3 (4.4-11.0)
[2025-03-15 10:19] LABS: Color, Urine Yellow (Yellow); Glucose, Dipstick 1000 mg/dl (Normal); Ketone-Dipstick Negative (Negative); Leukocyte Esterase-Dipstick Negative /ul (Negative); Nitrite-Dipstick Negative (Negative); Occult Blood-Urine Negative /ul (Negative); Protein-Dipstick Negative (Negative); Specific Gravity, Urine 1.005 (1.002-1.030); Urine Bilirubin Dipstick Negative (Negative); Urine Clarity Clear (Clear); Urine Urobilinogen Normal (Normal)
[2025-03-15 10:58] LABS: Microalbumin,Random Urine < 12.0 mg/L (NO RANGE EST.); Microalbumin:Creatinine Ratio UNABLE TO CALCULATE mg/g CRE
[2025-03-15 11:18] LABS: ALB/GLOB Ratio 1.5 RATIO (0.9-2.4); AST(SGOT) 29 U/L (<=31); Alanine Aminotransfer ALT/SGPT 25 U/L (<=34); Albumin, Serum 4.4 g/dL (3.4-4.8); Alkaline Phosphatase 68 U/L (35-104); Anion Gap 16 (5-15); BUN 15 mg/dL (4-19); BUN/Creat Ratio 16.4 RATIO (10-20); Calcium,Total 9.7 mg/dL (7.6-11.0); Carbon Dioxide 24.2 mmol/L (21.0-32.0); Chloride 100 mmol/L (98-108); Cholesterol 140 mg/dL (<=200); Creatinine, Serum 0.88 mg/dL (0.70-1.20); EST Glomerular Filtration Rate 71 (>60); Globulin 2.9 g/dL (2.2-4.2); Glucose 163 mg/dL (70-99); High Density Lipoprotein 60 mg/dL; Low Density Lipoprotein Calc. 63 mg/dL; Magnesium 1.4 mg/dL (1.5-2.2); Potassium 4.1 mmol/L (3.3-5.1); Protein, Total 7.3 g/dL (5.9-8.4); Sodium Level 140 mmol/L (133-145); Total Bilirubin 0.29 mg/dL (0.00-1.30); Triglycerides 86 mg/dL; Very Low Density Lipoprotein 17 mg/dL (5-40); Vitamin D,25 Hydroxy 83.4 ng/mL (30-100); cholesterol:hdl ratio screen 2.34
== END | disposition home or self-care (01) ==
LOC: MFPLAB 08:23
PROVIDERS: PCP Family Medicine; Referring Provider Family Medicine; Visit Provider Family Medicine
DX: E11.8 Type 2 diabetes mellitus with unspecified complications (principal); E03.8 Other specified hypothyroidism; E83.42 Hypomagnesemia; E55.9 Vitamin D deficiency, unspecified
CPT/HCPCS: 36415; 80053; 80061; 81001; 82043; 82306; 82570; 83036; 83735; 84439; 84443; 85025

== ENCOUNTER → 2025-03-21 | Outpatient (CLI) | payer MEDICARE, OTHER, SELFPAY ==
--- NOTE | 2025-03-21 08:40 | BI_ITS ---
EXAM: SCRN MAMM (CAD)W/KENYETTA BILAT DATE: 03/21/2025 CLINICAL HISTORY: F, Age 70 y/o , SCREENING No family history. BREAST CANCER RISK ASSESSMENT: Not assessed. TECHNIQUE: Bilateral screening digital breast tomosynthesis with 2D and 3D images. Computer aided detection. COMPARISON: Prior exam(s) dated March 18, 2024.. FINDINGS: TISSUE DENSITY: The breast tissue is composed of scattered area of fibroglandular density. Bilateral Breast Mammographic Findings: No significant masses, calcifications or other abnormalities are identified. Stable asymmetry of breast tissue were more breast tissue is seen in the upper- outer quadrant of the right breast as compared to the left side. BI/SCRN MAMM (CAD)W/KENYETTA BILAT IMPRESSION: OVERALL FINAL ASSESSMENT: BIRADS 2 BENIGN FINDING RECOMMENDATION: Routine annual follow-up in 1 Year A letter with findings and recommendations will be mailed to the patient. Reading Location: [place] [address]
== END | disposition home or self-care (01) ==
LOC: OPBI 08:39
PROVIDERS: PCP Family Medicine
DX: Z12.31 Encounter for screening mammogram for malignant neoplasm of breast (principal)
CPT/HCPCS: 77063; 77067

== ENCOUNTER → 2025-04-07 | Outpatient (CLI) | payer MEDICARE, OTHER, SELFPAY ==
[2025-04-11 07:07] LABS: Calprotectin, Stool 120 ug/g (0-120)
[2025-04-11 22:06] LABS: Pancreatic Elastase, Fecal > 800 (>200)
== END | disposition home or self-care (01) ==
LOC: LABSPEC 09:05
PROVIDERS: PCP Family Medicine; Referring Provider Student in an Organized Health Care Education/Training Program; Visit Provider Student in an Organized Health Care Education/Training Program
DX: K58.0 Irritable bowel syndrome with diarrhea (principal); R19.5 Other fecal abnormalities
CPT/HCPCS: 82653; 83993; 87177; 87209; 87329

== ENCOUNTER → 2025-06-20 | Outpatient (CLI) | payer MEDICARE, OTHER, SELFPAY ==
--- OUTSIDE RECORDS SUMMARY | 2025-06-20 06:55 | XMS RPT_ITS | CCD ---
Author Organization [facility]iniSym[facility] Care Team Providers Care Film Color Tester Name Role Phone Maxime Astorga MD Unavailable [phone] Duong Durham MD Primary Care Provider [phone] Duong Durham MD Primary Care Provider [phone] Dr. Duong Durham Primary Care Provider [phone] Dr. Duong Durham Referring Provider Rick VELEZ, MOTOR VEHICLE ASSEMBLER-C Yanique Hayes Attending Provider [phone] Dr. Duong Durham Primary Care Provider Dr. Duong Durham Referring Provider Rick VELEZ, ROSIE-C Yanique Hayes Attending Provider [phone] FriendDr. Patton Attending Provider FriendDr. Patton Other Provider [phone] Duong Durham MD Primary Care Provider [phone] Dr. Duong Durham Primary Care Provider [phone] Dr. Duong Durham Referring Provider Dr. Giovanni Hidalgo Attending Provider [phone] MIKE Hinson Attending Provider Dr. Duong Durham Primary Care Provider [phone] Dr. Duong Durham Referring Provider Dr. Giovanni Hidalgo Attending Provider [phone] MIKE Hinson Attending Provider Dr. Abdi Jackson Attending Provider [phone] Abdi Jackson Other Provider Dr. Duong Durham Primary Care Provider [phone] Dr. Duong Durham Referring Provider Dr. Giovanni Hidalgo Attending Provider Dr. Duong Durham MD Primary Care Provider Carri Parra Attending Provider Carri Parra Referring Provider Marva MURCIA, Dr. Duong Raymundo Referring Provider Dr. Abdi Jackson DO Attending Provider Dr. Abdi Jackson DO Other Provider Marva MURCIA, Dr. Duong Raymundo Attending Provider [facility] [facility]HICLE [employer]ER-C, Hernesto Attending Provider Michaelorr MOTOR VEHICLE ASSEMBLER-C, Hernesto Referring Provider Dr. Duong Durham MD Primary Care Provider Carri Parra Attending Provider Carri Parra Referring Provider Gerardo, Hernesto Referring Unavailable Hernesto Carrillo Attending Unavailable Duong Durham Primary Care Unavailable Carri Luna Attending Unavailable Carri Luna Referring Unavailable SchDuong sykes Primary Care Unavailable SchinnerDuong E Referring Unavailable SchinnerDuong Attending Unavailable Schinner, Duong E Primary Care Unavailable SchinDuong stone Primary Care Unavailable SchDuong sykes Referring Unavailable Abdi Jackson Attending Unavailable Abdi Jackson Consulting Unavailable Carri Luna Attending Unavailable Schmony, Duong E Primary Care Unavailable Schinner, Duong E Referring Unavailable Schinner, Duong E Referring Unavailable Carri Luna Attending Unavailable Schmony, Duong E Primary Care Unavailable Schinner, Duong E Primary Care Unavailable Schmony, Duong E Referring Unavailable Carri Luna Attending Unavailable SchinnerDuong E Attending Unavailable Schinner, Duong E Primary Care Unavailable Duong Durham Attending Unavailable Duong Durham Primary Care Unavailable Duong Durham Referring Unavailable Duong Durham Attending Unavailable Duong Durham Primary Care Unavailable Duong Durham Referring Unavailable Duong Durham Attending Unavailable Duong Durham Primary Care Unavailable Carri Luna Referring Unavailable Carri Luna Attending Unavailable Duong Durham Primary Care Unavailable Duong Durham Primary Care Unavailable Duong Durham Referring Unavailable Abdi Jackosn Attending Unavailable Duong Durham Primary Care Unavailable Carri Luna Referring Unavailable Carri Luna Attending Unavailable Duong Durham Referring Unavailable Duong Durham Attending Unavailable Duong Durham Primary Care Unavailable Duong Duhram MD Primary Care Provider RICKY BINGHAM Attending Unavailable DUONG DURHAM Referring Unavailable DUONG DURHAM Primary Care Unavailable RICKY BINGHAM Referring Unavailable HEATHER SÁNCHEZ Attending Unavailable DUONG DURHAM Primary Care Unavailable DUONG DURHAM Primary Care Unavailable RICKY BINGHAM Attending Unavailable DUONG DURHAM Referring Unavailable Allergies Allergy Classification Reported Allergen(s) Allergy Type Date of Onset Reaction(s) Facility (1 source) sulfacetamide Drug Allergy 06-18-20 [facility] Work Phone: (20 sources) Sulfonamides (Antibiotic); Translations: [Sulfa (Sulfonamide Antibiotics)] Allergy to substance 07-30-20 [facility] (13 sources) Sulfonamides (Antibiotic) Propensity to adverse reactions to drug 06-11-20 [place] (13 sources) *Seasonal Propensity to adverse reactions to substance 06-11-20 [facility] (17 sources) Acetaminophen Drug Allergy 08-06-20 Other [facility] Comment on above: Lightheadedness (17 sources) HYDROcodone Drug Allergy 08-06-20 [place] Comment on above: Lightheadedness (1 source) Acetaminophen Drug Allergy 01-27-20 [facility] (1 source) HYDROcodone Drug Allergy 01-27-20 [facility] Medications Current Medications Medication Drug Class(es) Dates Sig (Normalized) Sig (Original) allopurinol 300 mg oral tablet (20 sources) Xanthine Oxidase Inhibitor Start: 10-18-2022 Allopurinol 300 mg tablet Active 100 mg PO DAILY October 18, 2022 3:37pm Start: 10-18-2022 take 100 mg by mouth once del y Allopurinol Active 100 MG PO DAILY October 18, 2022 3:37pm Start: 10-18-2022 End: 10-18-2022 Allopurinol 100 mg tablet Discontinued NMA PO October 18, 2022 1:00am October 18, 2022 3:42pm Start: 10-18-2022 End: 10-18-2022 Allopurinol Discontinued TAB PO October 18, 2022 1:00am October 18, 2022 3:42pm Start: 07-22-2022 End: 07-22-2022 allopurinol (ZYLOPRIM) table t 100 mg Start: 07-16-2022 End: 07-17-2022 100 mg, Per NG tube, DAILY E VERY MORNING, First dose on Fri07/16/22 at 1045, Until Discontinued, Post-op/Post-Proc Start: 03-01-2015 End: 10-18-2022 take 1 tablet by mouth once daily Allopurinol 300 MG tablet Discontinued 300 mg PO DAILY March 01, 2015 12:00am October 18, 2022 3:41pm atenolol 25 mg oral tablet (20 sources) beta-Adrenergic Maikel Start: 10-18-2022 take 1 tablet by mouth once daily Atenolol 25 mg tablet Active 25 mg PO DAILY October 18, 2022 3:38pm Start: 07-16-2022 End: 07-17-2022 25 mg, Per NG tube, DAILY EV DANYELLE MORNING, First dose on Fri07/16/22 at 1045, Until Discontinued Post-op/Post-Proc Start: 03-01-2015 End: 10-18-2022 take 1 tablet by mouth twice daily Atenolol 25 MG tablet Discontinued 25 mg PO TWICE A DAY March 01, 2015 12:00am October 18, 2022 3:41pm atenolol 50 MG t ablet Take 25 mg by mouth daily every morning. 0 Active atenolol 50 MG t ablet 1 tab(s) 0 Active atorvastatin 10 mg oral tablet (20 sources) HMG-CoA Reductase Inhibitor Start: 03-01-2015 End: 07-22-2022 take 1 tablet by mouth at bedtime Atorvastatin 10 MG tablet Active 10 mg PO AT BEDTIME March 01, 2015 12:00am calcium carbonate 1250 mg oral tablet (20 sources) Start: 08-12-2018 take 2 tablets by mouth once daily Calcium Carbonate 500 MG tablet Active 1000 mg PO DAILY August 12, 2018 12:00am Start: 08-12-2018 take 1000 mg by mouth once karo ly Calcium Carbonate Active 1000 MG PO DAILY August 12, 2018 12:00am take 1000 mg by mout h once daily in the morning Calcium Carbonate (CALCIUM 500 PO) Take 1,000 mg by mouth daily every morning. Active cetirizine hydrochloride 10 mg oral capsule (20 sources) Histamine-1 Receptor Antagonist Start: 03-15-2015 take 1 capsule by mouth once as needed Cetirizine (All Day Allergy) 10 MG capsule Active 10 mg PO NEEDED as needed for ALLERGIES March 15, 2015 12:00am take 1 tablet by gus th once daily as needed cetirizine 10 MG tablet Take 1 tablet by mouth daily as needed. Active chlorhexidine gluconate 1.2 mg/ml mouthwash (14 sources) Start: 07-21-2022 End: 07-22-2022 chlorhexidine 0.12 % Solutio n oral solution Take 15 mL by mouth 4 times daily. Rinse mouth with 15mL for 30sec then spit BID 473 mL 0 07/22/2022 Suspended Start: 07-17-2022 End: 07-31-2022 take 15 mL by mouth every twelve hours chlorhexidine 0.12 % Solution oral solution Take 15 mL by mouth every 12 hours for 14 days. 420 mL 07/26/2022 Active cholecalciferol 0.05 mg oral capsule (20 sources) Vitamin D Start: 08-06-2022 End: 12-30-2023 take 1 capsule by mouth once daily Cholecalciferol (Vitamin D3) 50 mcg (2,000 unit) capsule Active 50 ug PO DAILY August 06, 2022 12:00am Start: 03-01-2015 End: 10-18-2022 Cholecalciferol (Vitamin D3) (Vitamin D) 1,000 UNIT tablet Discontinued 2000 U PO DAILY March 01, 2015 12:00am October 18, 2022 3:43pm take 1 capsule by mo uth once daily in the morning cholecalciferol 50 MCG (2000 UT) capsule Take 2,000 Units by mouth daily every morning. 0 Active Cholecalciferol (vitamin D3) 1.25 MG (29097 UT) capsule 1 tab(s) 0 Active cholestyramine resin 4000 mg powder for oral suspension (20 sources) Bile Acid Sequestrant Start: 03-22-2025 take 1 dose by mouth once daily Cholestyramine (With Sugar) 4 gram powder in packet Active 4 g PO daily 60 2 March 22, 2025 12:00am administer w/meal; avoid other meds within 1hr before or 4-6hr after dose Start: 04-09-2024 End: 12-31-2024 take 1 dose by mouth once daily as needed for diarrhea Cholestyramine (With Sugar) 4 gram powder in packet Discontinued 4 g PO DAILY as needed for diarrhea 60 2 April 09, 2024 4:03pm December 31, 2024 2:44pm administer w/meal; avoid other meds within 1hr before or 4-6hr after dose Start: 03-09-2024 End: 04-09-2024 Cholestyramine (With Sugar) 4 gram powder Discontinued 4 g PO .lunch as needed for diarrhea 378 3 March 09, 2024 4:20pm April 09, 2024 3:51pm administer w/meal; avoid other meds within 1hr before or 4-6hr after dose Start: 03-09-2024 End: 04-09-2024 Cholestyramine (With Sugar) 4 gram powder Discontinued 4 g PO .lunch as needed for diarrhea 378 March 09, 2024 4:20pm April 09, 2024 3:51pm administer w/meal; avoid other meds within 1hr before or 4-6hr after dose Start: 01-27-2024 End: 03-09-2024 Cholestyramine (With Sugar) 4 gram powder Discontinued 4 g PO .lunch as needed for diarrhea January 27, 2024 3:30pm March 09, 2024 4:21pm administer w/meal; avoid other meds within 1hr before or 4-6hr after dose Start: 01-08-2023 End: 03-09-2024 take 1 dose by mouth twice daily Cholestyramine (With Sugar) 4 gram powder Discontinued 4 g PO TWICE A DAY 348.6 5 August 11, 2023 3:43pm December 18, 2023 9:55am diarrhea administer w/meal; avoid other meds within 1hr before or 4-6hr after dose Start: 10-18-2022 End: 01-08-2023 take 1 dose by mouth once daily Cholestyramine (With S ugar) 4 gram powder Discontinued 4 g PO DAILY 348.6 2 October 18, 2022 1:00am January 08, 2023 3:41pm diarrhea administer w/meal; avoid other meds within 1hr before or 4-6hr after dose Start: 10-18-2022 End: 01-08-2023 take 1 dose by mouth once daily Cholestyramine (With S ugar) 4 gram powder Discontinued 4 g PO DAILY 348.6 October 18, 2022 1:00am January 08, 2023 3:41pm administer w/meal; avoid other meds within 1hr before or 4-6hr after dose Start: 10-18-2022 End: 01-08-2023 take 1 dose by mouth once daily Cholestyramine (With S ugar) Discontinued 4 GM PO DAILY 348.6 October 18, 2022 12:00am January 08, 2023 2:41pm administer w/meal; avoid other meds within 1hr before or 4-6hr after dose Start: 10-18-2022 End: 01-08-2023 take 1 dose by mouth once daily Cholestyramine (With S ugar) Discontinued 4 GM PO DAILY 348.6 October 18, 2022 1:00am January 08, 2023 3:41pm administer w/meal; avoid other meds within 1hr before or 4-6hr after dose Start: 10-18-2022 take 1 dose by mouth once del y Cholestyramine (With Sugar) Active 4 GM PO DAILY 348.6 October 18, 2022 1:00am administer w/meal; avoid other meds within 1hr before or 4-6hr after dose Start: 10-18-2022 take 1 dose by mouth once del y Cholestyramine (With Sugar) Active 4 GM PO DAILY 348.6 October 18, 2022 12:00am administer w/meal; avoid other meds within 1hr before or 4-6hr after dose clotrimazole 10 mg oral lozenge (10 sources) Azole Antifungal Start: 11-20-2022 End: 11-27-2022 take 1 tablet by mouth five times daily Clotrimazole 10 MG Dayday Take 1 tablet by mouth 5 times daily for 7 days. 35 tablet 11/20/2022 Active Start: 06-03-2022 End: 07-17-2022 clotrimazole 10 MG Dayday DI SSOLVE 1 IN THE MOUTH 5 TIMES DAILY UNTIL GONE 0 06/03/2022 07/17/2022 Discontinued (Stop Taking at Discharge) colestipol hydrochloride 1000 mg oral tablet (2 sources) Bile Acid Sequestrant Start: 04-06-2025 Colestipol 1 gram tablet Active 2 g PO daily 90 April 06, 2025 12:00am eluxadoline 100 mg oral tablet (11 sources) mu-Opioid Receptor Agonist Start: 08-06-2022 take 1 tablet by mouth twice daily at mealtime Eluxadoline (Viberzi) 100 mg tablet Active 100 MG PO TWICE A DAY August 05, 2022 11:00pm must administer with a meal/food empagliflozin 25 mg oral tablet (20 sources) Sodium-Glucose Cotransporter 2 Inhibitor Start: 08-06-2022 take 1 tablet by mouth once daily Empagliflozin (Jardiance) 25 mg tablet Active 25 mg PO DAILY August 06, 2022 12:00am take 1 tablet by gus th once daily in the morning Empagliflozin (Jardiance) 10 MG tablet 1 tab(s) orally once a day (in the morning) Active take 2.5 tablets by mouth once daily in the morning Empagliflozin 10 MG tablet Take 2.5 tabl ets by mouth daily every morning. 0 Active Empagliflozin 10 MG tablet Take 25 mg by mouth daily every morning. 0 Active First-BLM mouthwash (commerc ial containing Bzekjpwgj-Vzhmtzhoe-Rd/MgHydr-Simeth) (9 sources) Start: 07-22-2022 First-BLM mouthwash (commerc ial containing Ubkepqwui-Lurjyxuux-Ta/MgHydr-Simeth) 1 tbsp Q4-6 hrs PRN mouth pain. Swish x 1 min, then spit. 237 mL 1 07/22/2022 Suspended Start: 07-22-2022 First-BLM mout hwash (commercial containing Rwkosvocf-Mtibmmsgt-Uh/MgHydr-Simeth) 1 tbsp Q4-6 hrs PRN mouth pain. Swish x 1 min, then spit. 237 mL 1 07/22/2022 Active gabapentin 100 mg oral capsule (11 sources) Anti-epileptic Agent Start: 11-20-2022 End: 12-20-2022 take 1 capsule by mouth three times daily Gabapentin (Neurontin) 100 MG capsule Take 1 capsule by mouth 3 times daily. 90 capsule 1 11/20/2022 Active Magnesium Chloride 64 mg magnesium tablet (20 sources) Start: 12-16-2024 take 2 tablets by mouth once daily Magnesium Chloride 64 mg magnesium tablet Active 128 mg PO DAILY 120 1 December 16, 2024 4:57pm Start: 12-16-2024 take 2 tablets by mo uth once daily Magnesium Chloride 64 mg magnesium tablet Active 128 mg PO DAILY 120 December 16, 2024 4:57pm Start: 10-18-2024 End: 12-16-2024 take 2 tablets by mouth once daily Magnesium Chloride 64 mg magnesium tablet Discontinued 128 mg PO DAILY 120 0 October 18, 2024 8:03am December 16, 2024 4:57pm Start: 10-18-2024 End: 12-16-2024 take 2 tablets by mouth once daily Magnesium Chloride 64 mg magnesium tablet Discontinued 128 mg PO DAILY 120 October 18, 2024 8:03am December 16, 2024 4:57pm Start: 08-12-2024 End: 10-18-2024 take 2 tablets by mouth once daily Magnesium Chloride 64 mg magnesium tablet Discontinued 128 mg PO DAILY 120 0 August 12, 2024 1:12pm October 18, 2024 8:03am Start: 08-12-2024 End: 10-18-2024 take 2 tablets by mouth once daily Magnesium Chloride 64 mg magnesium tablet Discontinued 128 mg PO DAILY 120 August 12, 2024 1:12pm October 18, 2024 8:03am Start: 07-04-2024 End: 08-12-2024 take 2 tablets by mouth once daily Magnesium Chloride 64 mg magnesium tablet Discontinued 128 mg PO DAILY 120 0 July 04, 2024 7:24pm August 12, 2024 1:12pm Start: 07-04-2024 End: 08-12-2024 take 2 tablets by mouth once daily Magnesium Chloride 64 mg magnesium tablet Discontinued 128 mg PO DAILY 120 July 04, 2024 7:24pm August 12, 2024 1:12pm Start: 04-13-2024 End: 07-04-2024 take 2 tablets by mouth once daily Magnesium Chloride 64 mg magnesium tablet Discontinued 128 mg PO DAILY 120 0 April 13, 2024 12:00am July 04, 2024 7:28pm Start: 04-13-2024 End: 07-04-2024 take 2 tablets by mouth once daily Magnesium Chloride 64 mg magnesium tablet Discontinued 128 mg PO DAILY 120 April 13, 2024 12:00am July 04, 2024 7:28pm melatonin 5 mg oral capsule (20 sources) Start: 08-06-2022 take 1 capsule by mouth at bedtime as needed for sleep Melatonin 5 mg capsule Active 5 mg PO AT BEDTIME as needed for sleep August 06, 2022 12:00am Start: 08-06-2022 Melatonin Acti ve MG PO August 05, 2022 11:00pm Start: 07-21-2022 End: 07-22-2022 melatonin tablet 3 mg Start: 07-12-2022 End: 07-17-2022 take 6 mg by mouth once daily at bedtime as needed 6 mg, Oral, DAILY AT BEDTIME NEEDED, Starting on Fri07/12/22 at 1436, Until Fri07/17/22 at 1558, Insomnia, Post-op/Post-Proc Multiple Vitamins-Minerals (WOMENS 50+ MULTI VITAMIN/MIN PO) (12 sources) take 1 tablet by mouth once daily in the morning Multiple Vitamins-Minerals (WOMENS 50+ MULTI VITAMIN/MIN PO) Take 1 tablet by mouth daily every morning. Active take 1 tablet by gus th once daily in the morning Multiple Vitamins-Minerals (WOMENS 50+ M ULTI VITAMIN/MIN PO) Take 1 tablet by mouth daily every morning. 0 Suspended take 1 tablet by gus th once daily in the morning Multiple Vitamins-Minerals (WOMENS 50+ M ULTI VITAMIN/MIN PO) Take 1 tablet by mouth daily every morning. 0 Active Multivitamin With Folic Acid (Thera) 1 TABLET tablet (20 sources) Start: 03-01-2015 take 1 tablet by mouth once daily Multivitamin With Folic Acid (Thera) 1 TABLET tablet Active 1 TABLET PO DAILY March 01, 2015 8:23am Start: 03-01-2015 take 1 tablet by gus th once daily Multivitamin With Folic Acid (Thera) 1 TABLET tablet Active 1 {tbl} PO DAILY March 01, 2015 12:00am Start: 03-01-2015 take 1 tablet by gus once daily Multivitamin With Folic Acid (Thera) 1 TABLET tablet Active 1 TABLET PO DAILY February 28, 2015 11:00pm Start: 03-01-2015 take 1 tablet by gus once daily Multivitamin With Folic Acid (Thera) 1 TABLET tablet Active 1 TABLET PO DAILY March 01, 2015 12:00am pantoprazole 40 mg delayed release oral tablet (20 sources) Proton Pump Inhibitor Start: 08-16-2024 take 1 tablet by mouth twice daily Pantoprazole 40 mg tablet,delayed release (DR/EC) Active 40 mg PO TWICE A DAY 180 90 3 August 16, 2024 2:03pm acid reflux Start: 08-12-2024 End: 08-16-2024 take 1 tablet by mouth once daily in the morning Pantoprazole 40 mg tablet,delayed release (DR/EC) Discontinued 40 mg PO EVERY MORNING 60 30 3 August 12, 2024 9:09am August 16, 2024 2:04pm acid reflux Start: 01-27-2024 End: 08-12-2024 take 1 tablet by mouth twice daily Pantoprazole 40 mg tablet,delayed release (DR/EC) Discontinued 40 mg PO TWICE A DAY 60 30 2 April 09, 2024 1:57pm August 12, 2024 9:09am acid reflux Start: 01-12-2024 take 1 tablet by [facility] daily Pantoprazole Sodium (pantoprazole, [id number],) 40 MG tablet Take 1 tablet by mouth daily. 01/12/2024 Active potassium citrate 5 meq extended release oral tablet (20 sources) Start: 08-06-2022 take 5 tablets by mouth twice daily Potassium Citrate (Urocit-K 5) 5 mEq (540 mg) tablet extended release Active 1620 mg PO TWICE A DAY August 06, 2022 12:00am Start: 08-06-2022 take 1620 mg by mout h twice daily Potassium Citrate Active 1620 MG PO TWICE A DAY August 05, 2022 11:00pm Potassium Citrat e 15 MEQ (1620 MG) Tab CR 1 Active Semaglutide (6 sources) Start: 07-23-2024 Semaglutide (O zempic) 0.25 mg or 0.5 mg (2 mg/3 mL) pen injector Active 0.5 mg SC EVERY WEEK July 23, 2024 12:00am Semaglutide,0.25 or 0.5MG/DOS, (Ozempic, 0.25 or 0.5 MG/DOSE,) 2 MG/3ML Solution Pen-injector (2 sources) inject 0.25 mg by subcutaneous injection every week, then inject 0.5 mg by subcutaneous injection every week Semaglutide,0.25 or 0.5MG/DOS, (Ozempic, 0.25 or 0.5 MG/DOSE,) 2 MG/3ML Solution Pen-injector INJECT 0.25MG SUBCUTANEOUSLY ONCE PER WEEK FOR 4 WEEKS, THEN INCREASE TO 0.5MG ONCE PER WEEK THEREAFTER. Subcutaneous for 42 Days Active Completed/Discontinued Medications Medication Drug Class(es) Dates Sig (Normalized) Sig (Original) acetaminophen 325 mg oral tablet (12 sources) Start: 07-21-2022 End: 07-22-2022 take 1 tablet by mouth every six hours as needed acetaminophen (TYLENOL) tablet 650 mg Start: 07-17-2022 take 2 tablets by mo uth every six hours as needed acetaminophen 325 MG tablet Take 2 tablets by mouth every 6 hours as needed for Moderate Pain or Severe Pain. 07/17/2022 Active Start: 07-12-2022 End: 07-17-2022 take 1 tablet by mouth every four hours as needed acetaminophen (TYLENOL) tablet 650 mg acetaminophen 325 mg / HYDROcodone bitartrate 5 mg oral tablet (20 sources) Opioid Agonist Start: 07-30-2019 End: 08-12-2019 Hydrocodone-Acetaminophen 1 TABLET tablet Discontinued 1 {tbl} PO EVERY 4 HOURS NEEDED as needed for Pain 20 5 0 July 30, 2019 August 03, 2019 12:00am August 12, 2019 12:09am Personal history of urinary calculi Start: 07-30-2019 End: 08-12-2019 take 1 tablet by mouth every four hours as needed Hydrocodone-Acetaminophen Discontinued 1 TABLET PO EVERY 4 HOURS NEEDED 20 5 July 30, 2019 August 12, 2019 12:09am Start: 08-19-2018 End: 08-26-2018 take 1-2 tablets by mouth every six hours as needed for pain Hydrocodone-Acetaminophen 5-325 mg table t Discontinued 1 - 2 {tbl} PO EVERY 6 HOURS NEEDED as needed for Pain 40 5 0 August 21, 2018 August 25, 2018 1:00am August 26, 2018 1:09am Postoperative pain Other acute postprocedural pain take 1-2 pills every 6 hours as needed for pain, stop all other narcs and tylenol Start: 08-19-2018 End: 08-26-2018 take 1-2 tablets by mouth every six hours as needed for pain Hydrocodone-Acetaminophen Discontinued 1 - 2 TABLET PO EVERY 6 HOURS NEEDED 40 5 August 21, 2018 August 26, 2018 1:09am take 1-2 pills every 6 hours as needed for pain, stop all other narcs and tylenol amoxicillin 875 mg / clavulanate 125 mg oral tablet (11 sources) Penicillin-class Antibacterial Start: 10-02-2023 End: 10-12-2023 Amoxicillin-Pot Clavulanate 875-125 mg tablet Discontinued 1 {tbl} PO Q12H 20 10 October 02, 2023 1:00am October 11, 2023 1:00am October 12, 2023 1:05am Acute sinusitis, unspecified Start: 10-02-2023 End: 10-12-2023 take 1 tablet by mouth every twelve hours Amoxicillin-Pot Clavulanate Discontinued 1 TABLET PO Q12H 20 October 02, 2023 1:00am October 12, 2023 1:05am Ampicillin-Sulbactam Sodium (UNASYN) 1.5 g in sodium chloride 0.9% (MB PLUS) 50 mL (total volume) IVPB (1 source) Start: 07-12-2022 End: 07-17-2022 take 1.5 g intravenously every six hours 1.5 g, Intravenous, Administer over 30 Minutes, EVERY 6 HOURS NON-STANDARD, 24 doses, First dose on Fri07/12/22 at 1500, Last dose on Fri07/18/22 at 0900 Contains a penicillin. Post-op/Post-Proc Artificial Saliva (Yerbas-Lyt) (Mouth Kote) aerosol,spray (17 sources) Start: 08-06-2022 End: 10-18-2022 Artificial Saliva (Yerbas-Lyt) (Mouth Kote) aerosol,spray Discontinued 1 NMA MUCOUS MEM Q4H as needed August 06, 2022 12:00am October 18, 2022 3:38pm administer while awake Start: 08-06-2022 End: 10-18-2022 Artificial Saliva (Yerbas-Ly t) (Mouth Kote) aerosol,spray Discontinued 1 SPRAY MUCOUS MEM Q4H August 06, 2022 12:00am October 18, 2022 3:38pm administer while awake Start: 08-06-2022 End: 10-18-2022 Artificial Saliva (Yerbas-Ly t) (Mouth Kote) aerosol,spray Discontinued 1 SPRAY MUCOUS MEM Q4H August 05, 2022 11:00pm October 18, 2022 2:38pm administer while awake Start: 08-06-2022 Artificial Jimmy adan (Yerbas-Lyt) (Mouth Kote) aerosol,spray Active 1 SPRAY MUCOUS MEM Q4H August 05, 2022 11:00pm administer while awake aspirin 81 mg chewable tablet (20 sources) Platelet Aggregation Inhibitor, Nonsteroidal Anti-inflammatory Drug Start: 07-16-2022 End: 07-17-2022 81 mg, Per NG tube, DAILY EVERY MORNING, First dose on Fri07/16/22 at 1045, Until Discontinued, Post-op/Post-Proc Start: 03-01-2015 End: 10-18-2022 take 1 tablet by mouth once daily Aspirin 81 MG tablet,chewable Discontinued 81 mg PO DAILY@0800 March 01, 2015 12:00am October 18, 2022 3:38pm atropine sulfate 0.025 mg / difenoxin hydrochloride 1 mg oral tablet (20 sources) Anticholinergic, Cholinergic Muscarinic Antagonist, Antidiarrheal Start: 08-12-2018 End: 10-18-2022 Difenoxin-Atropine (Motofen Tablet) 1 EACH tablet Discontinued 1 NMA PO EVERY 6 HOURS August 12, 2018 12:00am October 18, 2022 3:39pm cramps/diarrhea atropine sulfate 0.025 mg / diphenoxylate hydrochloride 2.5 mg oral tablet (20 sources) Anticholinergic, Cholinergic Muscarinic Antagonist, Antidiarrheal Start: 01-04-2025 End: 04-06-2025 Diphenoxylate-Atropine 2.5-0.025 mg tablet Discontinued 1 {tbl} PO Q8H as needed for diarrhea 30 2 March 22, 2025 7:51am April 06, 2025 3:49pm Start: 02-26-2024 End: 01-04-2025 Diphenoxylate-Atropine 2.5-0 .025 mg tablet Discontinued 1 {tbl} PO THREE TIMES A DAY as needed for diarrhea 180 60 1 January 04, 2025 6:39am January 04, 2025 4:35pm Start: 01-27-2024 End: 02-26-2024 Diphenoxylate-Atropine (Lomo til) 2.5-0.025 mg tablet Discontinued 1 {tbl} PO TWICE A DAY as needed for diarrhea 45 30 2 January 27, 2024 3:29pm February 26, 2024 2:40pm Start: 09-18-2023 End: 01-27-2024 Diphenoxylate-Atropine (Lomo til) 2.5-0.025 mg tablet Discontinued 1 {tbl} PO THREE TIMES A DAY as needed for diarrhea 45 2 November 20, 2023 8:35pm January 27, 2024 3:31pm calcium chloride 0.0014 meq/ ml / potassium chloride 0.004 meq/ml / sodium chloride 0.103 meq/ml / sodium lactate 0.028 meq/ml injectable solution (3 sources) Start: 07-16-2022 End: 07-17-2022 lactated ringers IV solution Start: 07-12-2022 End: 07-15-2022 Intravenous, at 75 mL/hr, CO NTINUOUS, Starting on Fri07/12/22 at 1115, Until Fri07/15/22 at 0633, Post-op/Post-Proc Start: 07-12-2022 End: 07-12-2022 lactated ringers IV solution diclofenac sodium 20 mg/ml topical solution (20 sources) Nonsteroidal Anti-inflammatory Drug Start: 08-12-2018 End: 10-18-2022 Diclofenac Sodium (Pennsaid) 112 GM solution in metered-dose pump Discontinued 112 g TP NEEDED as needed for Pain August 12, 2018 12:00am October 18, 2022 3:39pm Docusate (1 source) Start: 07-14-2022 End: 07-17-2022 take 1 capsule by mouth every twelve hours as needed docusate (COLACE) capsule 100 mg 0.4 ml enoxaparin sodium 100 mg/ml prefilled syringe (1 source) Low Molecular Weight Heparin Start: 07-13-2022 End: 07-17-2022 inject 40 mg by subcutaneous injection every twenty-four hours 40 mg, Subcutaneous, EVERY 24 HOURS, First dose on 07/13/22 at 0900, Until Discontinued Indications: DVT/PE prophylaxis, Post-op/Post-Pro c escitalopram 10 mg oral tablet (20 sources) Serotonin Reuptake Inhibitor Start: 07-16-2022 End: 07-17-2022 10 mg, Per NG tube, DAILY EVERY MORNING, First dose on Fri07/16/22 at 1045, Until Discontinued Start: 07-23-2019 End: 07-22-2022 take 1 tablet by mouth once daily Escitalopram Oxalate 10 MG tablet Active 10 mg PO DAILY July 23, 2019 12:00am take 2 tablets by mo ut once daily in the morning escitalopram 5 MG tablet Take 2 tablets by mouth daily every morning. Active escitalopram 5 M G tablet 5 mg. 0 Active esomeprazole 40 mg granules for oral suspension (1 source) Proton Pump Inhibitor Start: 07-14-2022 End: 07-17-2022 esomeprazole (NEXIUM) oral granules packet 40 mg 2 ml fentaNYL 0.05 mg/ml injection (1 source) Opioid Agonist Start: 07-12-2022 End: 07-12-2022 fentaNYL (SUBLIMAZE) injection 25 mcg Glucerna 1.5 Jessica LIQD 240 mL (1 source) Start: 07-15-2022 End: 07-17-2022 Glucerna 1.5 Jessica LIQD 240 mL 1 ml heparin sodium, porcine 5000 unt/ml prefilled syringe (1 source) Unfractionated Heparin, Anti-coagulant Start: 07-12-2022 End: 07-12-2022 heparin injection 5,000 Units 1 ml hydrALAZINE hydrochloride 20 mg/ml injection (1 source) Arteriolar Vasodilator Start: 07-12-2022 End: 07-17-2022 take 10 mg intravenously every six hours as needed 10 mg, Intravenous, EVERY 6 HOURS NEEDED, Starting on Fri07/12/22 at 1436, Until Fri07/17/22 at 1558, SBP > 160 mmHg with HR <60 bpm, Post-op/Post-Pr oc hydroCHLOROthiazide 25 mg oral tablet (20 sources) Thiazide Diuretic Start: 07-16-2022 End: 07-17-2022 25 mg, Per NG tube, DAILY EVERY MORNING, First dose on Fri07/16/22 at 1045, Until Discontinued, Post-op/Post-Pr oc Start: 03-01-2015 End: 07-22-2022 take 1 tablet by mouth once daily Hydrochlorothiazide 25 MG tablet Active 25 mg PO DAILY March 01, 2015 12:00am hydroxychloroquine sulfate 200 mg oral tablet (20 sources) Antimalarial, Antirheumatic Agent Start: 07-13-2022 End: 07-17-2022 hydroxychloroquine (PLAQUENIL) suspension 200 mg Start: 08-12-2018 End: 07-22-2022 take 1 tablet by mouth twice daily Hydroxychloroquine (Plaquenil) 200 MG tablet Active 200 mg PO TWICE A DAY August 12, 2018 12:00am insulin lispro (HumaLOG) injection (1 source) Start: 07-17-2022 End: 07-17-2022 insulin lispro (HumaLOG) injection iohexol (OMNIPAQUE) 350 MG/ML injection 1-171 mL (1 source) Start: 07-03-2022 End: 07-03-2022 iohexol (OMNIPAQUE) 350 MG/ML injection 1-171 mL Jevity 1.5 Jessica/Fiber LIQD 240 mL (1 source) Start: 07-12-2022 End: 07-15-2022 240 mL, Nasogastric, at 240 mL/hr, 5 times daily enteral feeds, First dose on Fri07/12/22 at 1445, Until Discontinued, Post-op/Post-Proc labetalol (NORMODYNE) 10 mg in sodium chloride 0.9%, with overfill 62 mL (total volume) IVPB (1 source) Start: 07-12-2022 End: 07-17-2022 take 10 mg intravenously every six hours as needed 10 mg, Intravenous, at 248 mL/hr, Administer over 15 Minutes, EVERY 6 HOURS NEEDED, Starting on Fri07/12/22 at 1436, Until Fri07/17/22 at 1558, SBP > 160 mmHg with HR >60 bpm Hold for HR < 60 BPM. Post-op/Post-Proc levothyroxine sodium 0.075 mg oral tablet (20 sources) l-Thyro xine Start: 07-17-2022 End: 07-17-2022 levothyroxine (SYNTHROID) tablet 75 mcg Start: 03-01-2015 End: 07-22-2022 take 1 tablet by mouth once daily Levothyroxine 75 MCG tablet Active 75 ug PO DAILY March 01, 2015 12:00am take 75 ug by mouth at bedtime L evothyroxine Sodium (LEVOTHYROXINE PO) Take 75 mcg by mouth at bedtime. Active take 75 ug by mouth at bedtime L evothyroxine Sodium (LEVOTHYROXINE PO) Take 75 mcg by mouth at bedtime. 0 Suspended take 75 ug by mouth at bedtime L evothyroxine Sodium (LEVOTHYROXINE PO) Take 75 mcg by mouth at bedtime. 0 Active take 75 ug by mouth once daily L evothyroxine Sodium (LEVOTHYROXINE PO) Take 75 mcg by mouth daily. 0 Active lidocaine 4%/oxymetazoline 0.05% 1:1 compounded solution 2 spray (1 source) Start: 06-13-2022 End: 06-13-2022 lidocaine 4%/oxymetazoline 0.05% 1:1 compounded solution 2 spray loperamide hydrochloride 2 mg oral capsule (1 source) Opioid Agonist Start: 07-14-2022 End: 07-17-2022 take 1 capsule by mouth every four hours as needed loperamide (IMODIUM) capsule 2 mg magic mouthwash (standard) (1 source) Start: 07-21-2022 End: 07-22-2022 magic mouthwash (standard) magnesium chloride 535 mg delayed release oral tablet (7 sources) Start: 01-27-2024 End: 02-26-2024 take 2 tablets by mouth twice daily Magnesium Chloride 64 mg tablet,delayed release (DR/EC) Discontinued 128 mg PO TWICE A DAY 120 30 0 January 27, 2024 12:00am February 25, 2024 12:00am February 26, 2024 12:05am Start: 01-27-2024 take 128 mg by mouth twice karo ly Magnesium Chloride Active 128 MG PO TWICE A DAY 120 30 January 27, 2024 12:00am magnesium oxide 400 mg oral tablet (20 sources) Start: 03-05-2016 End: 01-27-2024 take 1 tablet by mouth twice daily Magnesium Oxide 400 MG tablet Discontinued 400 mg PO TWICE A DAY March 05, 2016 12:00am January 27, 2024 3:36pm Start: 03-05-2016 End: 07-22-2022 take 400 mg by mouth once daily Magnesium Oxide Active 400 MG PO DAILY March 04, 2016 11:00pm Magnesium Oxide (MAG-OX 400 PO) 1 0 Active 50 ml magnesium sulfate 80 m g/ml injection (3 sources) Start: 07-17-2022 End: 07-17-2022 Magnesium Sulfate 4 g in sterile water 50 ml premix IVPB Start: 07-15-2022 End: 07-15-2022 Magnesium Sulfate 4 g in rashaad rile water 50 ml premix IVPB Start: 07-13-2022 End: 07-13-2022 magnesium sulfate 1 g in dex trose 5% 100 mL premix IVPB metFORMIN hydrochloride 500 mg oral tablet (20 sources) Biguanide Start: 07-21-2022 End: 07-22-2022 metFORMIN (GLUCOPHAGE) tablet 500 mg Start: 03-01-2015 take 1 tablet by gus th twice daily at mealtime Metformin 1,000 MG tablet Active 1000 mg PO TWICE DAILY WITH MEALS March 01, 2015 12:00am Drug Treatment Unknown - unknown (1 source) No information available. omeprazole 40 mg delayed release oral capsule (15 sources) Proton Pump Inhibitor Start: 01-09-20 End: 06-23-20 take 1 capsule by mouth once daily Omeprazole 40 mg capsule,delayed release(DR/EC) Discontinued 40 mg PO DAILY January 08, 2023 12:00am January 27, 2024 3:44pm ondansetron 4mg/2ml (ZOFRAN) injection 4 mg (1 source) Start: 07-12-20 End: 07-17-20 take 4 mg intravenously every six hours as needed ondansetron 4mg/2ml (ZOFRAN) injection 4 mg oxyCODONE hydrochloride 5 mg oral tablet (3 sources) Opioid Agonist Start: 07-21-20 End: 07-22-20 take 1 tablet by mouth every six hours as needed oxyCODONE (ROXICODONE) tablet 5 mg Start: 07-17-2022 End: 07-17-2022 take 1 tablet by mouth every six hours as needed for pain oxyCODONE 5 MG tablet Indications: 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 12 tablet 0 07/17/2022 07/17/2022 Discontinued (Stop Taking at Discharge) Start: 07-12-2022 End: 07-17-2022 take 1 tablet by mouth every four hours as needed oxyCODONE (ROXICODONE) tablet 5 mg oxymetazoline hydrochloride 0.5 mg/ml nasal spray (1 source) Start: 07-12-2022 End: 07-12-2022 oxymetazoline (AFRIN) 0.05 % nasal spray 2 spray petrolatum 610 mg/ml topical cream (2 sources) Start: 07-21-2022 End: 07-22-2022 eucerin cream 1 Application Start: 07-17-2022 End: 07-17-2022 eucerin cream 1 Application polyethylene glycol (MIRALAX ) packet 17 g (1 source) Start: 07-12-2022 End: 07-17-2022 polyethylene glycol (MIRALAX ) packet 17 g potassium bicarbonate 20 meq effervescent oral tablet (2 sources) Start: 07-14-2022 End: 07-15-2022 Potassium Bicarb-Citric Acid (Effer-K) 20 MEQ effervescent tablets for oral solution 40 mEq microencapsulated potassium chloride 20 meq extended release oral tablet (9 sources) Start: 07-22-2022 End: 07-22-2022 potassium chloride (K-DUR) tablet ER 20 mEq Start: 03-05-2016 Potassium Chlo ride (Klor-Con M20) 20 MEQ Tab.Er.Prt Active 15 MEQ PO TWICE A DAY March 04, 2016 11:00pm Promethazine (1 source) Phenothiazine Start: 07-12-2022 End: 07-17-2022 take 1 tablet by mouth every six hours as needed Promethazine HCl (PHENERGAN) tablet 12.5 mg 72 hr scopolamine 0.0139 mg/hr transdermal system (1 source) Anticholinergic Start: 07-12-2022 End: 07-15-2022 scopolamine (TRANSDERM-SCOP) patch 1 patch Senna Leaves (1 source) Start: 07-14-2022 End: 07-17-2022 take 1 tablet by mouth every twelve hours as needed senna (SENOKOT) tablet 8.6 mg 1000 ml sodium chloride 9 mg/ml injection (2 sources) Start: 07-12-2022 End: 07-17-2022 Intravenous, at 20 mL/hr, NEEDED, Starting on Fri07/12/22 at 1436, Until Fri07/17/22 at 1558, Carrier Fluid - See Admin. Inst 250mL 0.9NS to be used as carrier [...] rate of the intermittent or piggy back medication. 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; Translations: [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, part unspecified] Onset: 2 Chronic Cancer of head and neck (2 sources) History of malignant neoplasm of tongue; Translations: [Personal history of malignant neoplasm of tongue] 12-30-2023 Episodic Complications of surgical procedures or medical care (1 source) Disorder of skin; Translations: [Other postprocedural complications of skin and subcutaneous tissue] Episodic Diabetes mellitus with complications (2 sources) Type 2 diabetes mellitus with unspecified complications; Translations: [Type 2 diabetes mellitus with unspecified complications] Onset: 5 Chronic Diabetes mellitus without complication (12 sources) Type 2 diabetes mellitus without complication; Translations: [Type 2 diabetes mellitus without complications] Onset: 2 Chronic Disorders of lipid metabolism (19 sources) Hyperlipidemia; Translations: [Hyperlipidemia, unspecified] Onset: 2 Chronic Esophageal disorders (20 sources) Gastroesophageal reflux disease; Translations: [Gastro-esophageal reflux disease without esophagitis] Onset: 2 Chronic Immunizations and screening for infectious disease (14 sources) Antineutrophil cytoplasmic antibody positive; Translations: [Other specified abnormal immunological findings in serum] 11-08-2022 Episodic Nutritional deficiencies (1 source) Vitamin D deficiency, unspecified; Translations: [Vitamin D deficiency, unspecified] Onset: 5 Chronic Osteoarthritis (12 sources) Arthritis; Translations: [Unspecified osteoarthritis, unspecified site] Onset: 2 Chronic Other connective tissue disease (1 source) Full thickness rotator cuff tear; Translations: [Complete rotator cuff tear or rupture of right shoulder, not specified as traumatic] Onset: 8 06-18-2018 Episodic Other connective tissue disease (1 source) Impingement syndrome of shoulder region; Translations: [Impingement syndrome of right shoulder] Onset: 8 06-18-2018 Episodic Other gastrointestinal disorders (17 sources) Irritable bowel syndrome with diarrhea; Translations: [Irritable bowel syndrome with diarrhea] 08-06-2022 Chronic Other gastrointestinal disorders (9 sources) Irritable bowel syndrome with diarrhea; Translations: [Irritable bowel syndrome] 10-18-2022 Chronic Other gastrointestinal disorders (5 sources) Diarrhea; Translations: [Diarrhea, unspecified] 03-22-2025 Episodic Other gastrointestinal disorders (1 source) Diarrhea, unspecified; Translations: [Diarrhea, unspecified] Onset: 5 Episodic Other gastrointestinal disorders (1 source) Other fecal abnormalities; Translations: [Other fecal abnormalities] Onset: 5 Episodic Other liver diseases (16 sources) Steatosis of liver; Translations: [Fatty (change of) liver, not elsewhere classified] 10-18-2022 Chronic Other liver diseases (20 sources) Fatty (change of) liver, not elsewhere classified; Translations: [Other chronic nonalcoholic liver disease] Onset: 5 10-18-2022 Chronic Other liver diseases (12 sources) Cirrhosis of liver; Translations: [Unspecified cirrhosis of liver] 07-04-2024 Chronic Other liver diseases (1 source) Unspecified cirrhosis of liver; Translations: [Unspecified cirrhosis of liver] Onset: 5 Chronic Other nutritional; endocrine; and metabolic disorders (13 sources) Obese class I; Translations: [Obesity, unspecified] Onset: 2 06-13-2022 Chronic Other nutritional; endocrine; and metabolic disorders (1 source) Body mass index 30+ - obesity; Translations: [Obesity, unspecified] Chronic Other nutritional; endocrine; and metabolic disorders (1 source) Hypomagnesemia; Translations: [Hypomagnesemia] Onset: 5 Chronic Other screening for suspected conditions (not mental disorders or infectious disease) (2 sources) Encounter for screening mammogram for malignant neoplasm of breast; Translations: [Abnormal results of kidney function studies] Onset: 4 Episodic Other upper respiratory infections (16 sources) Acute sinusitis; Translations: [Acute sinusitis, unspecified] 10-02-2023 Episodic Residual codes; unclassified (1 source) History of surgical procedure on mouth; Translations: [Other specified postprocedural states] Episodic Thyroid disorders (13 sources) Hypothyroidism; Translations: [Hypothyroidism, unspecified] Onset: 2 Chronic Past or Other Problems Problem Classification Problem Date Documented Da te Episodic/Chronic Acute bronchitis (1 source) Acute bronchitis, unspecified; Translations: [Acute bronchitis, unspecified] Onset: 08-05-2024 Episodic Mood disorders (13 sources) Mood disorders Onset: 06-13-2022 Resolved: 06-15-2025 06-13-2022 Other gastrointestinal disorders (8 sources) H/O: Disorder; Translations: [Personal history of other diseases of the digestive system] Onset: 08-21-2022 Episodic Residual codes; unclassified (12 sources) History of palpitations; Translations: [Personal history of other specified conditions] Onset: 07-05-2022 Episodic Residual codes; unclassified (11 sources) Postoperative state; Translations: [Other specified postprocedural states] Onset: 07-12-2022 Episodic Unclassified (1 source) Problem Unclassified (1 source) Onset: 06-25-2023 06-25-2023 Results Test Name Value Interpretation Reference Range Facility M7400.3302on 04-18-2025 M7400.3302 ___ TESTING PERFORMED AT [facility]. ORIGINAL REPORT ON FILE IN LAB CONTAINS ADDITIONAL TEST SITE INFORMATION. Giardia Lamblia EIA NEGATIVE [facility] Comment on above: Performed By: #### L 3410.9992, L7000.0750, M7400.3302, L7000.0700, M600.5000 #### [facility] [address] [place], [place], [address] Ova and Parasites 8623on OP OVA AND PARASITES EX AM, ROUTINE These results were obtained using wet preparation(s) and trichrome stained smear. This test does not include testing for Crytosporidium parvum, Cyclospora, or Microsporidia. One negative specimen does not rule out the possibility of a parasitic infection. TESTING PERFORMED AT [facility]. ORIGINAL REPORT ON FILE IN LAB CONTAINS ADDITIONAL TEST SITE INFORMATION. Ova/Parasite Exam NO OVA, CYSTS, OR PARASITES FOUND. [facility] Comment on above: Performed By: #### L 3410.9992, L7000.0750, M7400.3302, L7000.0700, M600.5000 #### [facility] [address] [place], [place], [id number] Calprotectin, Stoolon [address] 120 ug/g Normal 0-120 [facility] Comment on above: Result Comment: Conc entration Interpretation Follow-Up < 5 - 50 ug/g Normal None >50 -120 ug/g Borderline Re-evaluate in 4-6 weeks >120 ug/g Abnormal Repeat as clinically indicated Performed at: [address] [id number] Coagulating Bath Operator: King Sofia MD, Phone: [phone] Performed By: #### L 3410.9992, L7000.0750, M7400.3302, L7000.0700, M600.5000 #### [facility] [address] [place], [address] L3410.9992on 04-11-20[facility] Normal . [facility] Comment on above: Order Comment: [id number] STOOL CULTURE Result Comment: Test Ordered: [id number] Stool Culture Salmonella/Shigella Screen Note: Final report Reference Range: . Result 1 Comment CB Reference Range: . No Salmonella or Shigella recovered. Campylobacter Culture Note: Final report Reference Range: . Result 1 Comment CB Reference Range: . No Campylobacter species isolated. E coli Shiga Toxin EIA Negative Reference Range: Negative Performed at: [address] [id number] Coagulating Bath Operator: Yang Tee PhD, Phone: [phone] Performed By: #### L 3410.9992, L7000.0750, M7400.3302, L7000.0700, M600.5000 #### [facility] [address] [place], [place], [id number] L7000.0750on 04-11-2025 P ELASTASE,FECA > 800 Normal >200 [facility] Comment on above: Result Comment: Resu lt Units: ug Elast./g Severe Pancreatic Insufficiency: <100 Moderate Pancreatic Insufficiency: 100 - 200 Normal: >200 Performed at: [facility] [id number] [place], [place] [id number] Coagulating Bath Operator: King Sofia MD, Phone: [phone] Performed By: #### L 3410.9992, L7000.0750, M7400.3302, L7000.0700, M600.5000 #### [facility] [address] [place], [address] Calprotectin stoolOrdered By : Carri Luna on 04-07-2025 Calprotectin stool 120 ug/g 0-120 [facility] Comment on above: Concentration Interp retation Follow-Up< 5 - 50 ug/g Normal None>50 -120 ug/g Borderline Re-evaluate in 4-6 weeks >120 ug/g Abnormal Repeat as clinically indicatedPerformed at: [address] [id number] Director: King Sofia MD, Phone: [phone] Clostridioides difficile nuc leic acid assay by PCRon 04-07-2025 C. difficile DNA GABRIEL+probe Ql (Unsp spec) [facility] Stool pancreatic elastase me asurement (mass/mass)Ordered By: Carri Luna on 04-07-2025 Elastase.pancreatic (Stl) [Mass/Mass] > 800 >200 [facility] Comment on above: Result Units: ug Caroline st./g Severe Pancreatic Insufficiency: <100 Moderate Pancreatic Insufficiency: 100 - 200 Normal: >200Performed at: [address] [id number] Director: King Sofia MD, Phone: [phone] Gastroenterology Visit Repor ton 04-06-2025 Gastroenterology Visit Report [facility] Gastroenterology [address] [place] [address] OFFICE VISIT Date of Service: 04/06/25 MR#: [id number] Acct: [id number] Name: ASTRID DUMONT JENNIFER Rep #: [id number] : 1955 Provider: MIKE Corbett Age/Sex: 70/F Location: [facility] Status: Signed Intake Vital Signs 01/26/25 12:17 Height 5 ft 2 in Intake Visit Reasons: FU Chief Complaint: diarrhea Allergies acetaminophen (From Vicodin) Allergy (Verified 01/26/25 12:16) Other hydrocodone (From Vicodin) Allergy (Verified 01/26/25 12:16) Other Sulfa (Sulfonamide Antibiotics) Allergy (Verified 01/26/25 12:16) Rash Patient : No Have you fallen in the past year?: No Nurse's Note: OV 04/06/25 Pt here for a f/u and reports diarrhea with urgency for three weeks. Pt continues taking cholestyramine daily. [facility] Medical History History of renal disease Restless legs Non-smoker Post-menopausal Cancer Thyroid disease Diabetes Inflammatory arthritis Arthritis Kidney stones High cholesterol History of IBS History of stress test History of irregular heartbeat Surgical History Hx of section Hx of glossectomy Hx of nephrostomy History of wisdom tooth extraction History of lithotripsy History of ureteroscopy History of partial knee replacement Hx of repair of rotator cuff History of lingual frenulectomy Family History Brother Leukemia Brother No problems noted. Father No problems noted. Mother Osteoarthritis Daughter No problems noted. Son No problems noted. Daughter No problems noted. Social History Smoking Status: Never smoker alcohol intake: never substance use type: does not use HPI HPI Chief Complaint: diarrhea Details: ASTRID DUMONT, is a 70 F who presents to the office today for f/u. [facility] established in 2022 for fatty liver and subsequently diagnosed with Barrets esophagus. US abd/ elastography 12.20.23- Liver measures 20.7cm Stiffness 8.1kPa EGD 12.22.23- Long segment Oliva's Esophagus, acute gastritis Pathology: extensive intestinal metaplasia, neg. dysplasia Last OV 07.23.24 Pt doing well since last visit. Pt started Ozempic a few months ago and notes having diarreha form this. Diarrhea controlled with cholestyramine and Lomotil. Continues PPI. EGD 01.26.25; - Small (< 5 mm) esophageal varices. 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 Biopsied. - Portal hypertensive gastropathy. - Chronic gastritis. Biopsied. - Normal examined duodenum. Liver elastography 2.09.06; 9.5kpa moderate to severe hepatic fibrosis OV .. Pt doing well. She is here to review her EGD. She is no longer having any diarrhea and takes lomitol just once a day. No longer taking cholestyramine. Start Rezdiffra Biochemical work up 02.02.25; CBC wnl, CMP wnl, PT/INR wnl OV ..25 Pt having urgent episode of loose stool over the past few weeks. It is typically after eating. SHe notes she had a bad accident while at a store and had to buy a new outfit. She continues with Lomotil daily and re started the cholestyramine. ROS Const Constitutional: No fatigue, fever(s) or weight change ENT ENT: No difficulty swallowing Gastro GI: Positive for change in bowel habits and diarrhea; No abdominal pain, belching, bloating, change in stool character, coffee ground emesis, constipation, cramping, heartburn, difficulty swallowing, feeling full early, excessive flatus, incontinent of stools, Vomiting blood/hematemesis, Blood in stool, loose stools, Black,tarry stools, nausea/dyspepsia, pain with swallowing, vomiting or other Musc Musculoskeletal: Positive for Arthritis; No joint pain Skin Skin: No yellowing of the eye or itchy eyes Psych Psychiatric: No anxiety and No depression Endo Endocrine: No fatigue or weight change Aller/Imm Allergy/Immunologic: No itchy eyes Alvin/Lymp Hematologic/Lymphatic: No easy bleeding or easy bruising Exam Const General: cooperative, healthy appearing and comfortable Orientation: alert [facility] Head: normal to inspection Eyes General: appearance normal, both eyes and all related structures Neck Neck: normal visual inspection Chest Chest palpation inspection: normal inspection of the chest Resp Effort Inspection: normal respiratory effort Cardio Rate: regular rate Rhythm: regular rhythm GI Inspection: normal to inspection Auscultation: normal bowel sounds Palpation: soft Assessment and Plan Assessment and Plan (1) Diarrhea: Status: Acute Plan: Astrid is a (more content not included)... Normal [facility] Breast imaging reportOrdered By: Jose Carr on 03-21-2025 Study report [facility] Imaging Services [address] [place], [place] [address] SCRN MAMM (CAD)W/KENYETTA BILAT MR#: [id number] Acct: [id number] Name: ASTRID DUMONT Rep #: [id number] : 1955 F 70 From: Antonio Carr MD PCP: Dr. Duong Durham MD Status: RE G CLI Study:SCRN MAMM (CAD)W/KENYETTA BILAT Date of Exa m: 03/21/25 Exam# [id number] Ordering Dr: Hernesto Carrillo NP EXAM: SCRN MAMM (CAD)W/KENYETTA BILAT DATE: 03/21/2025 CLINICAL HISTORY: F, Age 70 y/o , SCREENING No family history. BREAST CANCER RISK ASSESSMENT: Not assessed. TECHNIQUE: Bilateral screening digital breast tomosynthesis with 2D and 3D images. Computeraided detection. COMPARISON: Prior exam(s) dated March 18, 2024.. FINDINGS: TISSUE DENSITY: The breast tissue is composed of scattered area of fibroglandular density. Bilateral Breast Mammographic Findings: No significant masses, calcifications or other abnormalities are identified. Stable asymmetry of breast tissue were more breast tissue is seen in the upper-outer quadrant of the right breast as compared to the left side. BI/SCRN MAMM (CAD)W/KENYETTA BILAT IMPRESSION: OVERALL FINAL ASSESSMENT: BIRADS 2 BENIGN FINDING RECOMMENDATION: Routine annual follow-up in 1 Year A letter with findings and recommendations will be mailed to the patient. Reading Location: [place] [address] CC: Hernesto Carrillo; Dr. Duong Durham MD ~ Automatic Steel Tie Adjuster: Signed [facility] SCRN MAMM (CAD)W/KENYETTA BILATo n 03-21-2025 SCRN MAMM (CAD)W/KENYETTA BILAT [facility] Imaging Services [address] [place] [place] [address] SCRN MAMM (CAD)W/KENYETTA BILAT MR#: [id number] Acct: [id number] Name: ASTRID DUMONT Rep #: [id number] : 1955 F 70 From: Jose piña MD PCP: Dr. Duong Durham MD Status: REG CLI Study: SCRN MAMM (CAD)W/KENYETTA BILAT Date of Exam: 07/07 Exam# [id number] Ordering Dr: Hernesto Carrillo NP, NP EXAM: SCRN MAMM (CAD)W/KENYETTA BILAT DATE: 03/21/2025 CLINICAL HISTORY: F, Age 70 y/o , SCREENING No family history. BREAST CANCER RISK ASSESSMENT: Not assessed. TECHNIQUE: Bilateral screening digital breast tomosynthesis with 2D and 3D images. Computer aided detection. COMPARISON: Prior exam(s) dated March 18, 2024.. FINDINGS: TISSUE DENSITY: The breast tissue is composed of scattered area of fibroglandular density. Bilateral Breast Mammographic Findings: No significant masses, calcifications or other abnormalities are identified. Stable asymmetry of breast tissue were more breast tissue is seen in the upper-outer quadrant of the right breast as compared to the left side. BI/SCRN MAMM (CAD)W/KENYETTA BILAT IMPRESSION: OVERALL FINAL ASSESSMENT: BIRADS 2 BENIGN FINDING RECOMMENDATION: Routine annual follow-up in 1 Year A letter with findings and recommendations will be mailed to the patient. Reading Location: [facility] CC: Hernesto Carrillo; Dr. Duong Durham MD Automatic Steel Tie Adjuster: Signed Normal [facility] Absolute lymphocyte countOrd ered By: Duong Durham on 03-15-2025 Lymphocytes Auto (Unsp spec) [#/Vol] 1.38 10*3/uL 0.83-4.51 [facility] Absolute neutrophil countOrd ered By: Duong Durham on 03-15-2025 Neutrophils (Bld) [#/Vol] 2.5 10*3/uL 2.0-7.7 [facility] Anion gap in Serum or Plasma Ordered By: Duong Durham on 03-15-2025 Anion gap [Moles/Vol] 16 mmol/L High 5-15 [facility] Automated lymphocyte count a s percentage of total leukocytesOrdered By: Duong Durham on 03-15-2025 Lymphocytes/100 WBC Auto (Unsp spec) 29.7 % 19-41 [facility] BUN/creatinine ratioOrdered By: Duong Durham on 03-15-2025 Urea nitrogen/Creatinine [Mass ratio] 16.4 mg/mg 10-20 [facility] Basophil percentageOrdered B y: Duong Durham on 03-15-2025 Basophils/100 WBC (Bld) 1.3 % High 0-1 [facility] Bilirubin Test strip Ql (U)O rdered By: Duong Durham on 03-15-2025 Bilirubin Ql (U) Negative Negative [facility] Bilirubin, totalOrdered By: Duong Durham on 03-15-2025 Bilirubin [Mass/Vol] 0.29 mg/dL 0.00-1.30 [facility] CBC W/Diff, Automatedon Absolute Lymph 1.38 X10 3/uL Normal 0.83-4.51 [facility] Comment on above: Performed By: #### L 506.0400, L500.4100, L500.4050, L501.5200, L501.9520, L100.0100, L502.0250, L501.9985, L400.0001, L506.1001 #### [facility] Laboratory [address] [place], [address] Absolute Neut 2.5 X10 3/uL Normal 2.0-7.7 [facility] Comment on above: Performed By: #### L 506.0400, L500.4100, L500.4050, L501.5200, L501.9520, L100.0100, L502.0250, L501.9985, L400.0001, L506.1001 #### [facility] [address] [place], [address] Basophils/100 WBC (Bld) 1.3 % High 0-1 [facility] Comment on above: Performed By: #### L 506.0400, L500.4100, L500.4050, L501.5200, L501.9520, L100.0100, L502.0250, L501.9985, L400.0001, L506.1001 #### [facility] [address] [place], [place], [phone] (596) Eosinophils/100 WBC (Bld) 4.7 % Normal 0-5 [facility] Comment on above: Performed By: #### L 506.0400, L500.4100, L500.4050, L501.5200, L501.9520, L100.0100, L502.0250, L501.9985, L400.0001, L506.1001 #### [facility] [address] [place], [place], [phone] (867) Erythrocyte distribution width (RBC) [Ratio] 13.2 % Normal 11.6-14.6 [facility] Comment on above: Performed By: #### L 506.0400, L500.4100, L500.4050, L501.5200, L501.9520, L100.0100, L502.0250, L501.9985, L400.0001, L506.1001 #### [facility] [address] [place], [place], [phone] (242) Hematocrit (Bld) [Volume fraction] 40.9 % Normal 37-47 [facility] Comment on above: Performed By: #### L 506.0400, L500.4100, L500.4050, L501.5200, L501.9520, L100.0100, L502.0250, L501.9985, L400.0001, L506.1001 #### [facility] [address] [place], [place], [phone] (564) Hemoglobin (Bld) [Mass/Vol] 13.2 g/dL Normal 12.0-15.0 [facility] Comment on above: Performed By: #### L 506.0400, L500.4100, L500.4050, L501.5200, L501.9520, L100.0100, L502.0250, L501.9985, L400.0001, L506.1001 #### [facility] [address] [place], [address] IG% 0.200 Normal 0.0-0.9 [facility] Comment on above: Result Comment: IG% - Immature Granulocytes (promyelocytes, myelocytes and metamyelocytes) > 1% indicates that a LEFT SHIFT is Present. Performed By: #### L 506.0400, L500.4100, L500.4050, L501.5200, L501.9520, L100.0100, L502.0250, L501.9985, L400.0001, L506.1001 #### [facility] [address] [place], [address] Lymphocytes/100 WBC (Bld) 29.7 % Normal 19-41 [facility] Comment on above: Performed By: #### L 506.0400, L500.4100, L500.4050, L501.5200, L501.9520, L100.0100, L502.0250, L501.9985, L400.0001, L506.1001 #### [facility] [address] [facility] [place], [address] MCH (RBC) [Entitic mass] 29.1 pg Normal 27.0-32.0 [facility] Comment on above: Performed By: #### L 506.0400, L500.4100, L500.4050, L501.5200, L501.9520, L100.0100, L502.0250, L501.9985, L400.0001, L506.1001 #### [facility] [address] [place], [address] MCHC (RBC) [Mass/Vol] 32.3 g/dL Normal 32-36 [facility] Comment on above: Performed By: #### L 506.0400, L500.4100, L500.4050, L501.5200, L501.9520, L100.0100, L502.0250, L501.9985, L400.0001, L506.1001 #### [facility] [address] [place], [address] MCV (RBC) [Entitic vol] 90.1 fL Normal 81-99 [facility] Comment on above: Performed By: #### L 506.0400, L500.4100, L500.4050, L501.5200, L501.9520, L100.0100, L502.0250, L501.9985, L400.0001, L506.1001 #### [facility] [address] [place], [address] Monocytes/100 WBC (Bld) 10.1 % High 0-10 [facility] Comment on above: Performed By: #### L 506.0400, L500.4100, L500.4050, L501.5200, L501.9520, L100.0100, L502.0250, L501.9985, L400.0001, L506.1001 #### [facility] [address] [place], [address] Neutrophils/100 WBC (Bld) 54.0 % Normal 47-70 [facility] Comment on above: Performed By: #### L 506.0400, L500.4100, L500.4050, L501.5200, L501.9520, L100.0100, L502.0250, L501.9985, L400.0001, L506.1001 #### [facility] [address] [place], [address] Nucleated RBC (Bld) [#/Vol] 0 10*3/uL Normal 0-5 [facility] Comment on above: Performed By: #### L 506.0400, L500.4100, L500.4050, L501.5200, L501.9520, L100.0100, L502.0250, L501.9985, L400.0001, L506.1001 #### [facility] [address] [place], [address] Platelet mean volume (Bld) [Entitic vol] 10.5 fL Normal 6.2-12.0 [facility] Comment on above: Performed By: #### L 506.0400, L500.4100, L500.4050, L501.5200, L501.9520, L100.0100, L502.0250, L501.9985, L400.0001, L506.1001 #### [facility] [address] [place], [place], [phone] (355) Platelets (Bld) [#/Vol] 223 10*3/uL Normal 150-450 [facility] Comment on above: Performed By: #### L 506.0400, L500.4100, L500.4050, L501.5200, L501.9520, L100.0100, L502.0250, L501.9985, L400.0001, L506.1001 #### [facility] [address] [place], [place], [phone] (916) RBC (Bld) [#/Vol] 4.54 10*6/uL Normal 4.2-5.4 [facility] Comment on above: Performed By: #### L 506.0400, L500.4100, L500.4050, L501.5200, L501.9520, L100.0100, L502.0250, L501.9985, L400.0001, L506.1001 #### [facility] [address] [place], [address] (251) RDW SD 42.7 fl Normal 35.1-43.9 [facility] Comment on above: Performed By: #### L 506.0400, L500.4100, L500.4050, L501.5200, L501.9520, L100.0100, L502.0250, L501.9985, L400.0001, L506.1001 #### [facility] [address] [place], [address] WBC (Bld) [#/Vol] 4.6 10*3/uL Normal 4.4-11.0 [facility] Comment on above: Performed By: #### L 506.0400, L500.4100, L500.4050, L501.5200, L501.9520, L100.0100, L502.0250, L501.9985, L400.0001, L506.1001 #### [facility] [address] [place], [address] Calculated very low density lipoprotein (VLDL) cholesterol measurementOrdered By: Duong Durham on 03-15-2025 Calculated very low density lipoprotein (VLDL) cholesterol measurement 17 mg/dL 5-40 [facility] Carbon dioxide, total [Moles /volume] in Central venous bloodOrdered By: Duong Durham on 03-15-2025 CO2 [Moles/Vol] 24.2 mmol/L 21.0-32.0 [facility] Chloride assayOrdered By: Gudelia Durham on 03-15-2025 Chloride [Moles/Vol] 100 mmol/L 98-108 [facility] Comprehensive Metabolic Prof ilon 03-15-2025 Albumin [Mass/Vol] 4.4 g/dL Normal 3.4-4.8 [facility] Comment on above: Performed By: #### L 500.2500 #### [facility] [address] [place], [address] Albumin/Globulin [Mass ratio] 1.5 {ratio} Normal 0.9-2.4 [facility] Comment on above: Performed By: #### L 500.2500 #### [facility] [address] [place], [address] ALK PHOS 68 U/L Normal 35-104 [facility] Comment on above: Performed By: #### L 500.2500 #### [facility] [address] [place], [address] ALT [Catalytic activity/Vol] 25 U/L Normal <=34 [facility] Comment on above: Performed By: #### L 500.2500 #### [facility] [address] [place], [address] AST [Catalytic activity/Vol] 29 U/L Normal <=31 [facility] Comment on above: Performed By: #### L 500.2500 #### [facility] [address] [place], [address] Bilirubin [Mass/Vol] 0.29 mg/dL Normal 0.00-1.30 [facility] Comment on above: Performed By: #### L 500.2500 #### [facility] [address] [place], [address] BUN/CRE 16.4 RATIO Normal 10-20 [facility] Comment on above: Performed By: #### L 500.2500 #### [facility] [address] [place], [address] Calcium [Mass/Vol] 9.7 mg/dL Normal 7.6-11.0 [facility] Comment on above: Performed By: #### L 500.2500 #### [facility] [address] [place], [address] Chloride [Moles/Vol] 100 mmol/L Normal 98-108 [facility] Comment on above: Performed By: #### L 500.2500 #### [facility] [address] [place], [address] CO2 [Moles/Vol] 24.2 mmol/L Normal 21.0-32.0 [facility] Comment on above: Performed By: #### L 500.2500 #### [facility] [address] [place], [address] Creatinine [Mass/Vol] 0.88 mg/dL Normal 0.70-1.20 [facility] Comment on above: Performed By: #### L 500.2500 #### [facility] [address] [place], [address] GAP 16 High 5-15 [facility] Comment on above: Performed By: #### L 500.2500 #### [facility] [address] [place], [address] GFR/1.73 sq M.predicted among non-blacks MDRD (S/P/Bld) [Vol rate/Area] 71 mL/min/{1.73_m2} Normal >60 [facility] Comment on above: Result Comment: mL/m in/1.73m2 CKD-EPI Creatinine Equation (2020) Performed By: #### L 500.2500 #### [facility] [address] [place], [address] Globulin (S) [Mass/Vol] 2.9 g/dL Normal 2.2-4.2 [facility] Comment on above: Performed By: #### L 500.2500 #### [facility] [address] [place], [address] Glucose [Mass/Vol] 163 mg/dL High 70-99 [facility] Comment on above: Performed By: #### L 500.2500 #### [facility] [address] [place], [address] Potassium [Moles/Vol] 4.1 mmol/L Normal 3.3-5.1 [facility] Comment on above: Performed By: #### L 500.2500 #### [facility] [address] [place], [place], [id number] Sodium [Moles/Vol] 140 mmol/L Normal 133-145 [facility] Comment on above: Performed By: #### L 500.2500 #### [facility] [address] [place], [place], [id number] T PROT 7.3 g/dL Normal 5.9-8.4 [facility] Comment on above: Performed By: #### L 500.2500 #### [facility] [address] [place], [place], [id number] Urea nitrogen [Mass/Vol] 15 mg/dL Normal 4-19 [facility] Comment on above: Performed By: #### L 500.2500 #### [facility] [address] [place], [place], [id number] Eosinophil percentageOrdered By: Duong Durham on 03-15-2025 Eosinophils/100 WBC (Bld) 4.7 % 0-5 [facility] Erythrocyte distribution wid th ratioOrdered By: Duong Durham on 03-15-2025 Erythrocyte distribution width (RBC) [Ratio] 13.2 % 11.6-14.6 [facility] Erythrocyte distribution wid th standard deviationOrdered By: Duong Durham on 03-15-2025 Erythrocyte distribution width (RBC) [Ratio] 42.7 fl 35.1-43.9 [facility] Glomerular filtration rate ( GFR) estimation/1.73 sq m using serum, plasma, or whole bOrdered By: Duong Durham on 03-15-2025 GFR/1.73 sq M.predicted among non-blacks MDRD (S/P/Bld) [Vol rate/Area] 71 mL/min/{1.73_m2} >60 [facility] Comment on above: mL/min/1.73m2 CKD-EP I Creatinine Equation (2020) Hematocrit Auto (Bld) [Volum e fraction]Ordered By: Duong Durham on 03-15-2025 Hematocrit (Bld) [Volume fraction] 40.9 % 37-47 [facility] Hemoglobin A1con 03-15-2025 HbA1c (Bld) [Mass fraction] 7.0 % High <=5.6 [facility] Comment on above: Result Comment: Norm al < 5.7 % Prediabetic 5.7 - 6.4 % Diabetic >or= 6.5 % Please note range changes. Performed By: #### L 500.2500 #### [facility] [address] [place], [place], [id number] Hemoglobin A1c percentageOrd ered By: Duong Durham on 03-15-2025 HbA1c (Bld) [Mass fraction] 7.0 % High <5.7 [facility] Comment on above: Normal < 5.7 % Predi abetic 5.7 - 6.4 % Diabetic >or= 6.5 % Please note range changes. Hemoglobin measurementOrdere d By: Duogn Durham on 03-15-2025 Hemoglobin (Bld) [Mass/Vol] 13.2 g/dL 12.0-15.0 [facility] Immature granulocytes/100 WB C Auto (Bld)Ordered By: Duong Durham on 03-15-2025 Immature granulocytes/100 WBC (Bld) 0.200 % 0.0-0.9 [facility] Comment on above: IG% - Immature Granu locytes (promyelocytes, myelocytes and metamyelocytes) > 1% indicates that a LEFT SHIFT is Present. Ketones Test strip Ql (U)Ord ered By: Duong Durham on 03-15-2025 Ketones Ql (U) Negative Negative [facility] LDL calc ser/plasOrdered By: Duong Durham on 03-15-2025 Cholesterol in LDL [Mass/Vol] 63 mg/dL [facility] Comment on above: Ngmbyjtdbf=217-655 m g/dL & Higher Eukg=742 mg/dL or greater Laboratory - Chemistry and C hemistry - challengeOrdered By: Duong Durham on 03-15-2025 AST [Catalytic activity/Vol] 29 U/L <32 [facility] Lipid Profileon 03-15-2025 CHOL:HDL 2.34 Normal [facility] Comment on above: Performed By: #### L 500.2500 #### [facility] [address] [place], [address] Cholesterol [Mass/Vol] 140 mg/dL Normal <=200 [facility] Comment on above: Result Comment: Chol esterol level, Desirable <200 mg/dL Borderline high cholesterol 200-239 mg/dL High cholesterol >=240 mg/dL Recommendations of the NCEP Adult Treatment Panel for the following risk-cutoff thresholds for the [place] population. Performed By: #### L 500.2500 #### [facility] [address] [place], [address] Cholesterol in HDL [Mass/Vol] 60 mg/dL Normal [facility] Comment on above: Result Comment: Shanae onal Cholesterol Education Program (NCEP) guidelines: <40 mg/dL: Low HDL-cholesterol (major risk factor for CHD) >= 60 mg/dL: High HDL-cholesterol (negative risk factor for CHD) HDL-cholesterol is affected by a number of factors, e.g. smoking, exercise, hormones, sex and age. Performed By: #### L 500.2500 #### [facility] [address] [place], [address] Cholesterol in LDL [Mass/Vol] 63 mg/dL Normal [facility] Comment on above: Result Comment: Bord amoxfs=391-015 mg/dL Higher Idow=313 mg/dL or greater Performed By: #### L 500.2500 #### [facility] [address] [place], [address] Cholesterol in VLDL [Mass/Vol] 17 mg/dL Normal 5-40 [facility] Comment on above: Performed By: #### L 500.2500 #### [facility] [address] [place], [address] Triglyceride [Mass/Vol] 86 mg/dL Normal [facility] Comment on above: Result Comment: The drugs N-Acetylcysteine and Metamizole may falsely depress this assay. Normal range: <150 mg/dL Borderline High: 150-199 mg/dL High: 200-499 mg/dL Very High: >500 mg/dL Performed By: #### L 500.2500 #### [facility] [address] [place], [place], [id number] MCV (mean corpuscular volume ) determinationOrdered By: Duong Durham on 03-15-2025 MCV (RBC) [Entitic vol] 90.1 fL 81-99 [facility] Magnesiumon 03-15-2025 Magnesium [Mass/Vol] 1.4 mg/dL Low 1.5-2.2 [facility] Comment on above: Performed By: #### L 500.2500 #### [facility] [address] [place], [place], [id number] Magnesium measurement (mass/ volume)Ordered By: Duong Durham on 03-15-2025 Magnesium (Unsp spec) [Mass/Vol] 1.4 mg/dL Low 1.5-2.2 [facility] Mean corpuscular hemoglobin (MCH) determinationOrdered By: Duong Durham on 03-15-2025 MCH (RBC) [Entitic mass] 29.1 pg 27.0-32.0 [facility] Mean corpuscular hemoglobin concentration (MCHC) determinationOrdered By: Duong Durham on 03-15-2025 MCHC (RBC) [Mass/Vol] 32.3 g/dL 32-36 [facility] Mean platelet volume determi nationOrdered By: Duong Durham on 03-15-2025 Platelet mean volume (Bld) [Entitic vol] 10.5 fL 6.2-12.0 [facility] Microalb:Creat Ratio,Random URon 03-15-2025 Creatinine [Mass/Vol] 75.00 mg/dL Normal 28.00-217.00 [facility] Comment on above: Performed By: #### L 506.0400, L500.4100, L500.4050, L501.5200, L501.9520, L100.0100, L502.0250, L501.9985, L400.0001, L506.1001 #### [facility] [address] [place], [address] MALB:CREAT UNABLE TO CALCULATE Normal [facility] Comment on above: Performed By: #### L 506.0400, L500.4100, L500.4050, L501.5200, L501.9520, L100.0100, L502.0250, L501.9985, L400.0001, L506.1001 #### [facility] [address] [place], [place], [id number] MICROALBUMIN,UR < 12.0 Normal NO RANGE EST. [facility] Comment on above: Performed By: #### L 506.0400, L500.4100, L500.4050, L501.5200, L501.9520, L100.0100, L502.0250, L501.9985, L400.0001, L506.1001 #### [facility] [address] [facility] [place], [id number] Microalbumin/creat ratio urO rdered By: Duong Durham on 03-15-2025 Urine microalbumin/creatinine ratio measurement UNABLE TO CALCULATE mg/g CRE [facility] Microscopic analysis of urin e for red blood cells (RBC)Ordered By: Duong Durham on 03-15-2025 Microscopic analysis of urine for red blood cells (RBC) 0 SEEN /hpf 0-5 [facility] Monocyte percentageOrdered B y: Duong Durham on 03-15-2025 Monocytes/100 WBC (Bld) 10.1 % High 0-10 [facility] Mucus LM Ql (Urine sed)Order ed By: Duong Durham on 03-15-2025 Mucus Ql (Urine sed) 0 SEEN /hpf [facility] Neutrophil percentageOrdered By: Duong Durham on 03-15-2025 Neutrophils/100 WBC (Bld) 54.0 % 47-70 [facility] Nitrite Test strip Ql (U)Ord ered By: Duong Durham on 03-15-2025 Nitrite Ql (U) Negative Negative [facility] Nucleated red blood cell per centageOrdered By: Duong Durham on 03-15-2025 Nucleated RBC/100 WBC (Bld) [Ratio] 0 % 0-5 [facility] Platelet countOrdered By: Gudelia Durham on 03-15-2025 Platelets (Bld) [#/Vol] 223 10*3/uL 150-450 [facility] Potassium measurement (mass/ volume)Ordered By: Duong Durham on 03-15-2025 Potassium (Unsp spec) [Mass/Vol] 4.1 mmol/L 3.3-5.1 [facility] Protein Test strip Ql (U)Ord ered By: Duong Durham on 03-15-2025 Protein Ql (U) Negative Negative [facility] RBC Auto (Bld) [#/Vol]Ordere d By: Duong Durham on 03-15-2025 RBC (Bld) [#/Vol] 4.54 10*6/uL 4.2-5.4 [facility] Random urine creatinine jackson urement (mass/volume)Ordered By: Duong Durham on 03-15-2025 Creatinine Unsp time (U) [Mass/Vol] 75.00 mg/dL 28.00-217.00 [facility] Screening total cholesterol/ high density lipoprotein (HDL) cholesterol ratioOrdered By: Duong Durham on 03-15-2025 Cholesterol.total/Sindy sterol in HDL [Mass ratio] 2.34 {ratio} [facility] Serum creatinine measurement (mass/volume)Ordered By: Duong Durham on 03-15-2025 Creatinine [Mass/Vol] 0.88 mg/dL 0.70-1.20 [facility] Serum globulin measurementOr dered By: Duong Durham on 03-15-2025 Globulin (S) [Mass/Vol] 2.9 g/dL 2.2-4.2 [facility] Serum glucose measurement (m ass/volume)Ordered By: Duong Durham on 03-15-2025 Glucose [Mass/Vol] 163 mg/dL High 70-99 [facility] Serum or plasma alanine salomon otransferase (ALT) measurementOrdered By: Duong Durham on 03-15-2025 ALT [Catalytic activity/Vol] 25 U/L <35 [facility] Serum or plasma albumin jackson urement (mass/volume)Ordered By: Duong Durham on 06-03-2025 Albumin [Mass/Vol] 4.4 g/dL 3.4-4.8 [facility] Serum or plasma albumin/glob ulin mass ratioOrdered By: Duong Durham on 03-15-2025 Albumin/Globulin [Mass ratio] 1.5 {ratio} 0.9-2.4 [facility] Serum or plasma alkaline oren sphatase measurementOrdered By: Duong Durham on 03-15-2025 ALP [Catalytic activity/Vol] 68 U/L 35-104 [facility] Serum or plasma calcium jackson urement (mass/volume)Ordered By: Duong Durham on 03-15-2025 Calcium [Mass/Vol] 9.7 mg/dL 7.6-11.0 [facility] Serum or plasma cholesterol in HDL measurement (mass/volume)Ordered By: Duong Durham on 03-15-2025 Cholesterol in HDL [Mass/Vol] 60 mg/dL >40 [facility] Comment on above: National Cholesterol Education Program (NCEP) guidelines:<40 mg/dL: Low HDL-cholesterol (major risk factor for CHD)>= 60 mg/dL: High HDL-cholesterol (negative risk factor for CHD)HDL-cholesterol is affected by a number of factors, e.g. smoking, exercise, hormones, sex and age. Serum or plasma cholesterol measurement (mass/volume)Ordered By: Duong Durham on 03-15-2025 Cholesterol [Mass/Vol] 140 mg/dL <201 [facility] Comment on above: Cholesterol level, D esirable <200 mg/dLBorderline high cholesterol 200-239 mg/dLHigh cholesterol >=240 mg/dLRecommendations of the NCEP Adult Treatment Panel for the following risk-cutoff thresholds for the [place] population. Serum or plasma urea nitroge n measurement (mass/volume)Ordered By: Duong Durham on 03-15-2025 Urea nitrogen [Mass/Vol] 15 mg/dL 4-19 [facility] Sodium levelOrdered By: Duong Durham on 03-15-2025 Sodium [Moles/Vol] 140 mmol/L 133-145 [facility] Squamous epithelial cells de tection in urine sediment by light microscopyOrdered By: Duong Durham on 03-15-2025 Epithelial cells.squamous LM Ql (Urine sed) 0 SEEN /hpf 5-10 [facility] T4 Free Directon 03-15-2025 T4 FREE DIRECT 1.50 ng/dL High 0.76-1.46 [facility] Comment on above: Performed By: #### L 500.2500 #### [facility] Laboratory [address] [place], [place], [id number] T4 freeOrdered By: Duong davis on 03-15-2025 Free T4 [Mass/Vol] 1.50 ng/dL High 0.76-1.46 [facility] TSH DL <= 0.005 mIU/L QnOrde red By: Duong Durham on 03-15-2025 TSH Qn 2.410 uIU/mL 0.300-4.200 [facility] Thyroid Stim Hormone (TSH)on 03-15-2025 TSH 2.410 uIU/mL Normal 0.300-4.200 [facility] Comment on above: Performed By: #### L 500.2500 #### [facility] [address] [place], [place], [id number] Total proteinOrdered By: Marshal Durham on 03-15-2025 Protein [Mass/Vol] 7.3 g/dL 5.9-8.4 [facility] Triglycerides measurementOrd ered By: Duong Durham on 03-15-2025 Triglyceride [Mass/Vol] 86 mg/dL <199 [facility] Comment on above: The drugs N-Acetylcy steine and Metamizole may falsely depress this assay. Normal range: <150 mg/dLBorderline High: 150-199 mg/dLHigh: 200-499 mg/dLVery High: >500 mg/dL Urinalysis, Completeon 03-15 BACTERIA 0 SEEN Normal None Seen [facility] Comment on above: Order Comment: CLEAN CATCH Performed By: #### L 506.0400, L500.4100, L500.4050, L501.5200, L501.9520, L100.0100, L502.0250, L501.9985, L400.0001, L506.1001 #### [facility] [address] [place], [address] EPI,SQUAMOUS 0 SEEN Normal 5-10 [facility] Comment on above: Order Comment: CLEAN CATCH Performed By: #### L 506.0400, L500.4100, L500.4050, L501.5200, L501.9520, L100.0100, L502.0250, L501.9985, L400.0001, L506.1001 #### [facility] [address] [place], [address] Mucus Ql (Urine sed) 0 SEEN Normal [facility] Comment on above: Order Comment: CLEAN CATCH Performed By: #### L 506.0400, L500.4100, L500.4050, L501.5200, L501.9520, L100.0100, L502.0250, L501.9985, L400.0001, L506.1001 #### [facility] Laboratory [address] [place], [place], [id number] (589) RBC 0 SEEN Normal 0-5 [facility] Comment on above: Order Comment: CLEAN CATCH Performed By: #### L 506.0400, L500.4100, L500.4050, L501.5200, L501.9520, L100.0100, L502.0250, L501.9985, L400.0001, L506.1001 #### [facility] Laboratory [address] [facility] [address] [place], [place], [phone] WBC 0 SEEN Normal 0-5 [facility] Comment on above: Order Comment: CLEAN CATCH Performed By: #### L 506.0400, L500.4100, L500.4050, L501.5200, L501.9520, L100.0100, L502.0250, L501.9985, L400.0001, L506.1001 #### [facility] [address] [place], [place], [phone] Urine albumin measurement wi th detection limit of 20 mg/L or less (mass/volume)Ordered By: Duong Durham on 03-15-2025 Albumin DL <= 20 mg/L (U) [Mass/Vol] < 12.0 mg/L NO RANGE EST. [facility] Urine clarityOrdered By: Marshal Durham on 03-15-2025 Clarity (U) Clear Clear [facility] Urine color determinationOrd ered By: Duong Durham on 03-15-2025 Color (U) Yellow Yellow [facility] Urine glucose detectionOrder ed By: Duong Durham on 03-15-2025 Glucose Ql (U) 1000 mg/dl High Normal [facility] Urine leukocyte esterase det ection by dipstickOrdered By: Duong Durham on 03-15-2025 Leukocyte esterase Test strip Ql (U) Negative Negative [facility] Urine pHOrdered By: Duong sykes on 03-15-2025 pH (U) 7.0 [pH] 5.0 - 8.0 [facility] Urine sediment bacteria coun t by microscopy (number/high power field)Ordered By: Duong Durham on 03-15-2025 Bacteria LM.HPF (Urine sed) [#/Area] 0 /[HPF] None Seen [facility] Urine specific gravity measu rementOrdered By: Duong Durham on 03-15-2025 Specific gravity (U) [Rel density] 1.005 1.002-1.030 [facility] Urine urobilinogen measureme ntOrdered By: Duong Durham on 03-15-2025 Urobilinogen Ql (U) Normal mg/dl Normal [facility] Vitamin D,25 Hydroxyon 03-15 Vitamin D 25-OH 83.4 ng/mL Normal 30-100 [facility] Comment on above: Result Comment: Sherrell min D Status Deficiency: <20 ng/mL (50nmol/L) Insufficiency: 20-30 ng/mL (50-75 nmol/L) Sufficiency: 30-100 ng/mL (75-250 nmol/L) Toxicity: >100 ng/mL (>250 nmol/L) Performed By: #### L 500.2500 #### [facility] Laboratory [facility] [address] [place], [place], [id number] White blood cell (WBC) count Ordered By: Duong Durham on 03-15-2025 WBC (Bld) [#/Vol] 4.6 10*3/uL 4.4-11.0 [facility] White blood cell countOrdere d By: Duong Durham on 03-15-2025 White blood cell count 0 SEEN /hpf 0-5 [facility] Absolute lymphocyte countOrd ered By: Carri Luna on 02-02-2025 Lymphocytes Auto (Unsp spec) [#/Vol] 1.96 10*3/uL 0.83-4.51 [facility] Absolute neutrophil countOrd ered By: Carri Luna on 02-02-2025 Neutrophils (Bld) [#/Vol] 3.0 10*3/uL 2.0-7.7 [facility] Anion gap in Serum or Plasma Ordered By: Carri Luna on 02-02-2025 Anion gap [Moles/Vol] 15 mmol/L 5-15 [facility] Automated lymphocyte count a s percentage of total leukocytesOrdered By: Carri Luna on 02-02-2025 Lymphocytes/100 WBC Auto (Unsp spec) 33.2 % 19-41 [facility] BUN/creatinine ratioOrdered By: Carri Luna on 02-02-2025 Urea nitrogen/Creatinine [Mass ratio] 16.5 mg/mg 10-20 [facility] Basophil percentageOrdered B y: Carri Luna on 02-02-2025 Basophils/100 WBC (Bld) 1.0 % 0-1 [facility] Bilirubin, totalOrdered By: Carri Luna on 02-02-2025 Bilirubin [Mass/Vol] 0.25 mg/dL 0.00-1.30 [facility] CBC W/Diff, Automatedon 01-12 Absolute Lymph 1.96 X10 3/uL Normal 0.83-4.51 [facility] Comment on above: Performed By: #### L 3410.9992, L7000.0750, M7400.3302, L7000.0700, M600.5000 #### [facility] Laboratory [address] [place], [address] Absolute Neut 3.0 X10 3/uL Normal 2.0-7.7 [facility] Comment on above: Performed By: #### L 3410.9992, L7000.0750, M7400.3302, L7000.0700, M600.5000 #### [facility] [address] [place], [address] Basophils/100 WBC (Bld) 1.0 % Normal 0-1 [facility] Comment on above: Performed By: #### L 3410.9992, L7000.0750, M7400.3302, L7000.0700, M600.5000 #### [facility] [address] [place], [address] Eosinophils/100 WBC (Bld) 4.4 % Normal 0-5 [facility] Comment on above: Performed By: #### L 3410.9992, L7000.0750, M7400.3302, L7000.0700, M600.5000 #### [facility] [address] [place], [address] Erythrocyte distribution width (RBC) [Ratio] 13.1 % Normal 11.6-14.6 [facility] Comment on above: Performed By: #### L 3410.9992, L7000.0750, M7400.3302, L7000.0700, M600.5000 #### [facility] [address] [place], [address] Hematocrit (Bld) [Volume fraction] 42.0 % Normal 37-47 [facility] Comment on above: Performed By: #### L 3410.9992, L7000.0750, M7400.3302, L7000.0700, M600.5000 #### [facility] [address] [place], [address] Hemoglobin (Bld) [Mass/Vol] 13.6 g/dL Normal 12.0-15.0 [facility] Comment on above: Performed By: #### L 3410.9992, L7000.0750, M7400.3302, L7000.0700, M600.5000 #### [facility] [address] [place], [address] IG% 0.200 Normal 0.0-0.9 [facility] Comment on above: Result Comment: IG% - Immature Granulocytes (promyelocytes, myelocytes and metamyelocytes) > 1% indicates that a LEFT SHIFT is Present. Performed By: #### L 3410.9992, L7000.0750, M7400.3302, L7000.0700, M600.5000 #### [facility] [address] [place], [address] Lymphocytes/100 WBC (Bld) 33.2 % Normal 19-41 [facility] Comment on above: Performed By: #### L 3410.9992, L7000.0750, M7400.3302, L7000.0700, M600.5000 #### [facility] [address] [place], [address] MCH (RBC) [Entitic mass] 29.2 pg Normal 27.0-32.0 [facility] Comment on above: Performed By: #### L 3410.9992, L7000.0750, M7400.3302, L7000.0700, M600.5000 #### [facility] [address] [place], [address] MCHC (RBC) [Mass/Vol] 32.4 g/dL Normal 32-36 [facility] Comment on above: Performed By: #### L 3410.9992, L7000.0750, M7400.3302, L7000.0700, M600.5000 #### [facility] [address] [place], [address] MCV (RBC) [Entitic vol] 90.3 fL Normal 81-99 [facility] Comment on above: Performed By: #### L 3410.9992, L7000.0750, M7400.3302, L7000.0700, M600.5000 #### [facility] [address] [place], [address] Monocytes/100 WBC (Bld) 10.2 % High 0-10 [facility] Comment on above: Performed By: #### L 3410.9992, L7000.0750, M7400.3302, L7000.0700, M600.5000 #### [facility] [address] [place], [address] Neutrophils/100 WBC (Bld) 51.0 % Normal 47-70 [facility] Comment on above: Performed By: #### L 3410.9992, L7000.0750, M7400.3302, L7000.0700, M600.5000 #### [facility] [address] [place], [address] Nucleated RBC (Bld) [#/Vol] 0 10*3/uL Normal 0-5 [facility] Comment on above: Performed By: #### L 3410.9992, L7000.0750, M7400.3302, L7000.0700, M600.5000 #### [facility] [address] [place], [address] Platelet mean volume (Bld) [Entitic vol] 10.3 fL Normal 6.2-12.0 [facility] Comment on above: Performed By: #### L 3410.9992, L7000.0750, M7400.3302, L7000.0700, M600.5000 #### [facility] [address] [place], [address] Platelets (Bld) [#/Vol] 233 10*3/uL Normal 150-450 [facility] Comment on above: Performed By: #### L 3410.9992, L7000.0750, M7400.3302, L7000.0700, M600.5000 #### [facility] [address] [place], [address] RBC (Bld) [#/Vol] 4.65 10*6/uL Normal 4.2-5.4 [facility] Comment on above: Performed By: #### L 3410.9992, L7000.0750, M7400.3302, L7000.0700, M600.5000 #### [facility] [address] [place], [address] RDW SD 42.7 fl Normal 35.1-43.9 [facility] Comment on above: Performed By: #### L 3410.9992, L7000.0750, M7400.3302, L7000.0700, M600.5000 #### [facility] [address] [place], [address] WBC (Bld) [#/Vol] 5.9 10*3/uL Normal 4.4-11.0 [facility] Comment on above: Performed By: #### L 3410.9992, L7000.0750, M7400.3302, L7000.0700, M600.5000 #### [facility] [address] [place], [address] Carbon dioxide, total [Moles /volume] in Central venous bloodOrdered By: Carri Luna on 02-02-2025 CO2 [Moles/Vol] 25.1 mmol/L 21.0-32.0 [facility] Chloride assayOrdered By: Lizabeth Luna on 02-02-2025 Chloride [Moles/Vol] 100 mmol/L 98-108 [facility] Comprehensive Metabolic Prof ilon 02-02-2025 Albumin [Mass/Vol] 4.3 g/dL Normal 3.4-4.8 [facility] Comment on above: Performed By: #### L 3410.9992, L7000.0750, M7400.3302, L7000.0700, M600.5000 #### [facility] Laboratory [address] [place], [address] Albumin/Globulin [Mass ratio] 1.3 {ratio} Normal 0.9-2.4 [facility] Comment on above: Performed By: #### L 3410.9992, L7000.0750, M7400.3302, L7000.0700, M600.5000 #### [facility] [address] [place], [address] ALK PHOS 68 U/L Normal 35-104 [facility] Comment on above: Performed By: #### L 3410.9992, L7000.0750, M7400.3302, L7000.0700, M600.5000 #### [facility] [address] [place], [address] ALT [Catalytic activity/Vol] 23 U/L Normal <=34 [facility] Comment on above: Performed By: #### L 3410.9992, L7000.0750, M7400.3302, L7000.0700, M600.5000 #### [facility] [address] [place], [address] AST [Catalytic activity/Vol] 27 U/L Normal <=31 [facility] Comment on above: Performed By: #### L 3410.9992, L7000.0750, M7400.3302, L7000.0700, M600.5000 #### [facility] [address] [place], [address] Bilirubin [Mass/Vol] 0.25 mg/dL Normal 0.00-1.30 [facility] Comment on above: Performed By: #### L 3410.9992, L7000.0750, M7400.3302, L7000.0700, M600.5000 #### [facility] [address] [place], [address] BUN/CRE 16.5 RATIO Normal 10-20 [facility] Comment on above: Performed By: #### L 3410.9992, L7000.0750, M7400.3302, L7000.0700, M600.5000 #### [facility] [address] [place], [address] Calcium [Mass/Vol] 9.8 mg/dL Normal 7.6-11.0 [facility] Comment on above: Performed By: #### L 3410.9992, L7000.0750, M7400.3302, L7000.0700, M600.5000 #### [facility] [address] [place], [address] Chloride [Moles/Vol] 100 mmol/L Normal 98-108 [facility] Comment on above: Performed By: #### L 3410.9992, L7000.0750, M7400.3302, L7000.0700, M600.5000 #### [facility] [address] [place], [address] CO2 [Moles/Vol] 25.1 mmol/L Normal 21.0-32.0 [facility] Comment on above: Performed By: #### L 3410.9992, L7000.0750, M7400.3302, L7000.0700, M600.5000 #### [facility] [address] [place], [address] Creatinine [Mass/Vol] 0.83 mg/dL Normal 0.70-1.20 [facility] Comment on above: Performed By: #### L 3410.9992, L7000.0750, M7400.3302, L7000.0700, M600.5000 #### [facility] [address] [place], [address] GAP 15 Normal 5-15 [facility] Comment on above: Performed By: #### L 3410.9992, L7000.0750, M7400.3302, L7000.0700, M600.5000 #### [facility] [address] [place], [address] GFR/1.73 sq M.predicted among non-blacks MDRD (S/P/Bld) [Vol rate/Area] 77 mL/min/{1.73_m2} Normal >60 [facility] Comment on above: Result Comment: mL/m in/1.73m2 CKD-EPI Creatinine Equation (2020) Performed By: #### L 3410.9992, L7000.0750, M7400.3302, L7000.0700, M600.5000 #### [facility] [address] [place], [address] Globulin (S) [Mass/Vol] 3.2 g/dL Normal 2.2-4.2 [facility] Comment on above: Performed By: #### L 3410.9992, L7000.0750, M7400.3302, L7000.0700, M600.5000 #### [facility] [address] [place], [address] Glucose [Mass/Vol] 107 mg/dL High 70-99 [facility] Comment on above: Performed By: #### L 3410.9992, L7000.0750, M7400.3302, L7000.0700, M600.5000 #### [facility] [address] [place], [address] Potassium [Moles/Vol] 4.0 mmol/L Normal 3.3-5.1 [facility] Comment on above: Performed By: #### L 3410.9992, L7000.0750, M7400.3302, L7000.0700, M600.5000 #### [facility] [address] [place], [address] Sodium [Moles/Vol] 141 mmol/L Normal 133-145 [facility] Comment on above: Performed By: #### L 3410.9992, L7000.0750, M7400.3302, L7000.0700, M600.5000 #### [facility] [address] [place], [address] T PROT 7.5 g/dL Normal 5.9-8.4 [facility] Comment on above: Performed By: #### L 3410.9992, L7000.0750, M7400.3302, L7000.0700, M600.5000 #### [facility] [address] [place], [address] Urea nitrogen [Mass/Vol] 14 mg/dL Normal 4-19 [facility] Comment on above: Performed By: #### L 3410.9992, L7000.0750, M7400.3302, L7000.0700, M600.5000 #### [facility] [address] [place], [address] Eosinophil percentageOrdered By: Carri Luna on 02-02-2025 Eosinophils/100 WBC (Bld) 4.4 % 0-5 [facility] Erythrocyte distribution wid th (RBC) [Ratio]Ordered By: Carri Luna on 02-02-2025 Erythrocyte distribution width (RBC) [Entitic vol] 42.7 fL 35.1-43.9 [facility] Erythrocyte distribution wid th ratioOrdered By: Carri Luna on 02-02-2025 Erythrocyte distribution width (RBC) [Ratio] 13.1 % 11.6-14.6 [facility] Erythrocyte distribution wid th standard deviationOrdered By: Carri Luna on 02-02-2025 Erythrocyte distribution width (RBC) [Ratio] 42.7 fl 35.1-43.9 [facility] GFR/1.73 sq M.predicted asiya g non-blacks MDRD (S/P/Bld) [Vol rate/Area]Ordered By: Carri Luna on 02-02-2025 Estimated GFR (MDRD) Non-Af Amer 77 >60 [facility] Comment on above: mL/min/1.73m2 CKD-EP I Creatinine Equation (2020) Gastroenterology Visit Repor ton 02-02-2025 Gastroenterology Visit Report [facility] Gastroenterology [address] [place] [address] OFFICE VISIT Date of Service: 02/02/25 MR#: [id number] Acct: [id number] Name: ASTRID DUMONT Rep #: [id number] : 1955 Provider: MIKE Corbett Age/Sex: 69/F Location: [email or web address] Status: Signed Intake Vital Signs 01/27/24 14:59 01/26/25 12:17 Height 5 ft 2 in 5 ft 2 in Intake Visit Reasons: 6 M FU Chief Complaint: EGD Allergies acetaminophen (From Vicodin) Allergy (Verified 01/26/25 12:16) Other hydrocodone (From Vicodin) Allergy (Verified 01/26/25 12:16) Other Sulfa (Sulfonamide Antibiotics) Allergy (Verified 01/26/25 12:16) Rash Patient : No Have you fallen in the past year?: No Nurse's Note: OV Pt here for f/u and reports she is doing well since last visit. Pt continues pantoprazole daily. [facility] Medical History History of renal disease Restless legs Non-smoker Post-menopausal Cancer Thyroid disease Diabetes Inflammatory arthritis Arthritis Kidney stones High cholesterol History of IBS History of stress test History of irregular heartbeat Surgical History Hx of section Hx of glossectomy Hx of nephrostomy History of wisdom tooth extraction History of lithotripsy History of ureteroscopy History of partial knee replacement Hx of repair of rotator cuff History of lingual frenulectomy Family History Brother Leukemia Brother No problems noted. Father No problems noted. Mother Osteoarthritis Daughter No problems noted. Son No problems noted. Daughter No problems noted. Social History Smoking Status: Never smoker alcohol intake: never substance use type: does not use HPI HPI Chief Complaint: EGD Details: ASTRID DUMONT, is a 69 F who presents to the office today for f/u. BGI established in 2022 for fatty liver and subsequently diagnosed with Barrets esophagus. US abd/ elastography .07.06- Liver measures 20.7cm Stiffness 8.1kPa EGD 12.22.23- Long segment Oliva's Esophagus, acute gastritis Pathology: extensive intestinal metaplasia, neg. dysplasia Last OV 07.23.24 Pt doing well since last visit. Pt started Ozempic a few months ago and notes having diarreha form this. Diarrhea controlled with cholestyramine and Lomotil. Continues PPI. EGD 01.26.25; - Small (< 5 mm) esophageal varices. 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 Biopsied. - Portal hypertensive gastropathy. - Chronic gastritis. Biopsied. - Normal examined duodenum. Liver elastography .09.06; 9.5kpa moderate to severe hepatic fibrosis OV 02.02.25 Pt doing well. She is here to review her EGD. She is no longer having any diarrhea and takes lomitol just once a day. No longer taking cholestyramine. ROS Const Constitutional: No anorexia, fatigue, fever(s), weight change or sleep problems Eyes Eyes: No change in vision ENT ENT: No abnormal hearing, difficulty swallowing, mouth lesions, tongue swelling or throat swelling Resp Respiratory: No cough or shortness of breath Cardio Cardiology: Positive for leg pain with exertion Gastro GI: No difficulty swallowing Genitourinary-Female: No difficulty urinating or burning urination Musc Musculoskeletal: Positive for restless legs and leg pain with exertion Skin Skin: No hair loss in leg, yellowing of the eye, itchy eyes, rash, skin ulcer or skin swelling Neuro Neurology: Positive for restless legs; No abnormal hearing, confusion or memory loss Psych Psychiatric: No anxiety, No confusion and No memory loss Endo Endocrine: No fatigue or weight change Aller/Imm Allergy/Immunologic: No itchy eyes, throat swelling or tongue swelling Alvin/Lymp Hematologic/Lymphatic: No easy bleeding, easy bruising or enlarged lymph nodes Exam Const General: cooperative and comfortable Nutritional Appearance: average body habitus and well nourished [facility] Head: normal to inspection Ears: hearing grossly normal bilaterally Nose: external nose normal Face and sinus: normal facial exam Eyes General: appearance normal, both eyes and all related structures Neck Neck: normal visual inspection Chest Chest palpation inspection: normal inspection of the chest and normal palpation of entire chest wall Resp Effort Inspection: normal respiratory effort Auscultation: Bilateral: Clear to Auscultation Cardio Palpation: normal PMI Rate: regular rate Rhythm: regular rhythm GI Inspection: normal to inspection Auscultation: normal bowel sounds Percussion: normal to percuss (more content not included)... Normal [facility] Glomerular filtration rate ( GFR) estimation/1.73 sq m using serum, plasma, or whole bOrdered By: Carri Luna on 02-02-2025 GFR/1.73 sq M.predicted among non-blacks MDRD (S/P/Bld) [Vol rate/Area] 77 mL/min/{1.73_m2} >60 [facility] Comment on above: mL/min/1.73m2 CKD-EP I Creatinine Equation (2020) Hematocrit Auto (Bld) [Volum e fraction]Ordered By: Carri Luna on 02-02-2025 Hematocrit (Bld) [Volume fraction] 42.0 % 37-47 [facility] Hemoglobin measurementOrdere d By: Carri Luna on 02-02-2025 Hemoglobin (Bld) [Mass/Vol] 13.6 g/dL 12.0-15.0 [facility] Immature granulocytes/100 WB C Auto (Bld)Ordered By: Carri Luna on 02-02-2025 Immature granulocytes/100 WBC (Bld) 0.200 % 0.0-0.9 [facility] Comment on above: IG% - Immature Granu locytes (promyelocytes, myelocytes and metamyelocytes) > 1% indicates that a LEFT SHIFT is Present. International normalized rat io (INR) calculationOrdered By: Carri Luna on 02-02-2025 INR Coag (Bld) [Relative time] 0.9 {INR} [facility] Laboratory - Chemistry and C hemistry - challengeOrdered By: Carri Luna on 02-02-2025 AST [Catalytic activity/Vol] 27 U/L <32 [facility] Lymphocytes Auto (Unsp spec) [#/Vol]Ordered By: Carri Luna on 02-02-2025 Lymphocytes (Bld) [#/Vol] 1.96 10*3/uL 0.83-4.51 [facility] Lymphocytes/100 WBC Auto (Un sp spec)Ordered By: Carri Luna on 02-02-2025 Lymphocytes/100 WBC (Bld) 33.2 % 19-41 [facility] MCV (mean corpuscular volume ) determinationOrdered By: Carri Luna on 02-02-2025 MCV (RBC) [Entitic vol] 90.3 fL 81-99 [facility] Mean corpuscular hemoglobin (MCH) determinationOrdered By: Carri Luna on 02-02-2025 MCH (RBC) [Entitic mass] 29.2 pg 27.0-32.0 [facility] Mean corpuscular hemoglobin concentration (MCHC) determinationOrdered By: Carri Luna on 02-02-2025 MCHC (RBC) [Mass/Vol] 32.4 g/dL 32-36 [facility] Mean platelet volume determi nationOrdered By: Carri Luna on 02-02-2025 Platelet mean volume (Bld) [Entitic vol] 10.3 fL 6.2-12.0 [facility] Monocyte percentageOrdered B y: Carri Luna on 02-02-2025 Monocytes/100 WBC (Bld) 10.2 % High 0-10 [facility] Neutrophil percentageOrdered By: Carri Luna on 02-02-2025 Neutrophils/100 WBC (Bld) 51.0 % 47-70 [facility] Nucleated red blood cell per centageOrdered By: Carri Luna on 02-02-2025 Nucleated RBC/100 WBC (Bld) [Ratio] 0 % 0-5 [facility] Platelet countOrdered By: Lizabeth Luna on 02-02-2025 Platelets (Bld) [#/Vol] 233 10*3/uL 150-450 [facility] Potassium (Unsp spec) [Mass/ Vol]Ordered By: Carri Luna on 02-02-2025 Potassium [Moles/Vol] 4.0 mmol/L 3.3-5.1 [facility] Potassium measurement (mass/ volume)Ordered By: Carri Luna on 02-02-2025 Potassium (Unsp spec) [Mass/Vol] 4.0 mmol/L 3.3-5.1 [facility] Prothrombin Time w/INRon INR Coag (PPP) [Relative time] 0.9 {INR} Normal [facility] Comment on above: Performed By: #### L 3410.9992, L7000.0750, M7400.3302, L7000.0700, M600.5000 #### [facility] Laboratory [address] [place], [place], [id number] PT Coag (PPP) [Time] 12.7 s Normal 11.7-14.9 [facility] Comment on above: Performed By: #### L 3410.9992, L7000.0750, M7400.3302, L7000.0700, M600.5000 #### [facility] [address] [place], [place], [id number] Prothrombin timeOrdered By: Carri Luna on 02-02-2025 PT Coag (PPP) [Time] 12.7 s 11.7-14.9 [facility] RBC Auto (Bld) [#/Vol]Ordere d By: Carri Luna on 02-02-2025 RBC (Bld) [#/Vol] 4.65 10*6/uL 4.2-5.4 [facility] Serum creatinine measurement (mass/volume)Ordered By: Carri Luna on 02-02-2025 Creatinine [Mass/Vol] 0.83 mg/dL 0.70-1.20 [facility] Serum globulin measurementOr dered By: Carri Luna on 02-02-2025 Globulin (S) [Mass/Vol] 3.2 g/dL 2.2-4.2 [facility] Serum glucose measurement (m ass/volume)Ordered By: Carri Luna on 02-02-2025 Glucose [Mass/Vol] 107 mg/dL High 70-99 [facility] Serum or plasma alanine salomon otransferase (ALT) measurementOrdered By: Carri Luna on 02-02-2025 ALT [Catalytic activity/Vol] 23 U/L <35 [facility] Serum or plasma albumin jackson urement (mass/volume)Ordered By: Carri Luna on 02-02-2025 Albumin [Mass/Vol] 4.3 g/dL 3.4-4.8 [facility] Serum or plasma albumin/glob ulin mass ratioOrdered By: Carri Luna on 02-02-2025 Albumin/Globulin [Mass ratio] 1.3 {ratio} 0.9-2.4 [facility] Serum or plasma alkaline oren sphatase measurementOrdered By: Carri Luna on 02-02-2025 ALP [Catalytic activity/Vol] 68 U/L 35-104 [facility] Serum or plasma calcium jackson urement (mass/volume)Ordered By: Carri Luna on 02-02-2025 Calcium [Mass/Vol] 9.8 mg/dL 7.6-11.0 [facility] Serum or plasma urea nitroge n measurement (mass/volume)Ordered By: Carri Luna on 02-02-2025 Urea nitrogen [Mass/Vol] 14 mg/dL 4-19 [facility] Sodium levelOrdered By: Quincy Luna on 02-02-2025 Sodium [Moles/Vol] 141 mmol/L 133-145 [facility] Total proteinOrdered By: Gaby Luna on 02-02-2025 Protein [Mass/Vol] 7.5 g/dL 5.9-8.4 [facility] White blood cell (WBC) count Ordered By: Carri Luna on 02-02-2025 WBC (Bld) [#/Vol] 5.9 10*3/uL 4.4-11.0 [facility] Bedside Glucoseon 01-26-2025 FINGERSTICK GLU 124 mg/dL High 74-106 [facility] Comment on above: Result Comment: CHRISTINA MCDONOUGH OF PATIENT CARE PER NURSING PROTOCOL Performed By: #### L 3410.9992, L7000.0750, M7400.3302, L7000.0700, M600.5000 #### [facility] Laboratory [address] [place], [address] EGD Reporton 01-26-2025 EGD Report [facility] Medical Records Department [address] [place] [address] EGD Report MR#: [id number] Acct: [id number] Name: ASTRID DUMONT Rep #: [id number] : 1955 69 From: Abdi Jackson DO PCP: Dr. 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 Refer to note in patient chart for documentation of history and physical. Patient has symptoms of chronic heartburn. Complications: No immediate complications. Procedure: Pre-Anesthesia Assessment: - Prior to the procedure, a History and Physical was performed, and patient medications and allergies were reviewed. The patient is competent. The risks and benefits of the procedure and the sedation options and risks were discussed with the patient. All questions were answered and informed consent was obtained. Patient identification and proposed procedure were verified by the physician in the pre-procedure area. Mental Status Examination: alert and oriented. Airway Examination: normal oropharyngeal airway and neck mobility. Respiratory Examination: clear to auscultation. CV Examination: normal. Prophylactic Antibiotics: The patient does not require prophylactic antibiotics. Prior Anticoagulants: The patient has taken no anticoagulant or antiplatelet agents. ASA Grade Assessment: III - A patient with severe systemic disease. After reviewing the risks and benefits, the patient was deemed in satisfactory condition to undergo the procedure. The anesthesia plan was to use monitored anesthesia care (MAC). Immediately prior to administration of medications, the patient was re-assessed for adequacy to receive sedatives. The heart rate, respiratory rate, oxygen saturations, blood pressure, adequacy of pulmonary ventilation, and response to care were monitored throughout the procedure. The physical status of the patient was re-assessed after the procedure. After obtaining informed consent, the endoscope was passed under direct vision. Throughout the procedure, the patient's blood pressure, pulse, and oxygen saturations were monitored continuously. The Endoscope was introduced through the mouth, and advanced to the second part of duodenum. The upper GI endoscopy was accomplished without difficulty. The patient tolerated the procedure well. Scope In: 1:03:36 PM Scope Out: 1:08:48 PM Total Procedure Duration Time 0 hours 5 minutes 12 seconds Findings: Small (< 5 mm) varices were found in the middle third of the esophagus and in the lower third of the esophagus. They were 5 mm in largest diameter. There were esophageal mucosal changes secondary to established long-segment Oliva's disease present in the lower third of the esophagus. The maximum longitudinal extent of these mucosal changes was 6 cm in length. Mucosa was biopsied with a cold forceps for histology in a targeted manner at intervals of 1 cm in the lower third of the esophagus. One specimen bottle was sent to pathology. Verification of patient identification for the specimen was done. Estimated blood loss was minimal. Mild portal hypertensive gastropathy was found in the cardia, in the gastric fundus and in the gastric body. Localized moderate inflammation characterized by erosions, erythema and friability was found in the gastric body. Biopsies were taken with a cold forceps for Helicobacter pylori testing. Verification of patient identification for the specimen was done. Estimated blood loss was minimal. The examined duodenum was normal. Impression: - Small (< 5 mm) esophageal varices. 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 Biopsied. - Portal hypertensive gastropathy. - Chronic gastritis. Biopsied. - Normal examined duodenum. Recommendation: - Discharge patient to home. - Resume previous diet. - Continue present medications. - Await pathology results. - Repeat upper endoscopy. Procedure Code(s): --- Professional --- 16551, Esophagogastroduodenosc opy, flexible, transoral; with biopsy, single or multiple CPT copyright 2021 [employer]. All rights reserved. The codes documented in this report are preliminary and upon marine transport professionals review may be revised to meet current compliance requirements. Abdi Jackson DO 01/26/2025 1:14:11 PM This report has been signed electronically. Number of Addenda: 0 Note Initiated On: 01/26/2025 12:52 PM 01/26/25 1314 Date Abdi Jackson DO Srinivas Signature: Date (more content not included)... Normal [facility] Gl[facility] at [facility] deOrdered By: Abdi Jackson on 01-26-2025 Bedside Glucose (Misc Panel) 124 mg/dL High 74-106 [facility] Comment on above: MANAGEMENT OF PATIEN T CARE PER NURSING PROTOCOL Glucose [Mass/Vol] 124 mg/dL High 74-106 [facility] Comment on above: MANAGEMENT OF PATIEN T CARE PER NURSING PROTOCOL Immunohistochemical Stainson 01-26-2025 Immunohistochemical Stains Patient Age/Sex Location Account Attending Physician ASTRID DUMONT 69/F EN [id number] Abdi Jackson DO Specimen: [id number] Received: 01/26/25 Status: CHITRA Jenkins Num: [id number] Spec Type: EGD BIOPSY Subm Dr: Abdi Jackson DO HEADER OPERATION: EGD with biopsy PRE-OP DIAGNOSIS: Nonalcoholic fatty liver disease, Oliva's esophagus, irritable bowel syndrome with diarrhea TISSUE SUBMITTED: A- Gastric body biopsy, B- Distal esophagus biopsy MICROSCOPIC DIAGNOSIS A. Stomach, gastric body, biopsy: * Antral and oxyntic mucosa with mild chronic inflammation * The H E and the immunostain for Helicobacter pylori organisms is negative B. Distal esophagus, biopsy: * Benign squamous epithelium * Cardiac type mucosa with mild chronic inflammation and goblet cells, negative for dysplasia MICROSCOPIC DESCRIPTION Slides are reviewed. These tests were developed and their performance characteristics determined by [facility]. They may not have been cleared or approved by the U.S. Food and Drug Administration. The FDA has determined that such clearance or approval is not necessary. The above immunohistochemical/lisa Maranda markers are ordered and reviewed by the Pathologist. GROSS DESCRIPTION A. Received in formalin in a container labeled with the patient's name, date of , and gastric body biopsy for H. pylori and path are 2 cuello-pink fragments of mucosal tissue, each measuring 0.6 x 0.2 x 0.2 cm. Submitted in toto in A1. B. Received in formalin in a container labeled with the patient's name, date of , and distal esophagus biopsy are multiple cuello-pink fragments of mucosal tissue measuring 1.0 x 0.5 x 0.2 cm in aggregate. Submitted in toto in B1. B 01/28/2025 CPT:37132s0,32425 Patient Age/Sex Location Account Attending Physician ASTRID DUMONT 69/F EN [id number] Abdi Jackson, DO Signed (signature on file) Dr. Zoe Tavera DO 01/28/25 1342 [facility] Comment on above: Performed By: #### L 3410.9992, L7000.0750, M7400.3302, L7000.0700, M600.5000 #### [facility] [address] [place], [address] MR/POSTOP.ANEon 01-26-2025 MR/POSTOP.[facility] Medical Records Department [address] [place] [address] Anesthesia Postop Eval I 01/26/25 1329 MR#: [id number] Acct: [id number] Name: ASTRID DUMONT Rep #: [id number] : 1955 69 From: Kvng Hobbs PCP: Dr. Duong Durham MD Status:REG [facility] [place] C Location: [place] [address] Anesthesia: Postop Eval I Current Vital Signs Temperature: 97.9 F Pulse Rate: 74 Blood Pressure: 102/58 Respiratory Rate: 16 Pulse Ox: 97 Oxygen Delivery Method: Room Air Assessment Airway patent: Yes Spontaneous unlabored respirations: Yes Mental status: Awake and Calm nausea: No Vomiting: No Anesthesia Complication: No Fluid Hydration Crystalloid volume administer (ml): 30 Total IV fluid infused: 30 Progress Note Anesthesia document: Postop Eval 1 completed: Yes 01/26/25 1330 Date Kvng Espino Signature: Date CC: Signed Normal [facility] [id number] 01-26-2025 MR/POSTOPAN2 [facility] Medical Records Department [address] [place] [address] Anesthesia Postop Eval II 01/26/25 1452 MR#: [id number] Acct: [id number] Name: ASTRID DUMONT Rep #: [id number] : 1955 69 From: Arthur Rawls MD PCP: Dr. Duong Durham MD Status:DEP [facility] [place] C Location: EN Anesthesia Postop Eval I Sum Postop Eval Completion status Anesthesia document: Postop Eval 1 completed: Yes Anesthesia Postop Eval I Summary Anesthesia Postop Eval I Summary: Anesthesia Postop Eval I: Assessment Summary Airway patent Yes 01/26/25 13:30 [email or web address] Spontaneous unlabored Yes 01/26/25 13:30 [email or web address] respirations Mental status Awake,Calm 01/26/25 13:30 [email or web address] nausea No 01/26/25 13:30 [email or web address] Vomiting No 01/26/25 13:30 [email or web address] Anesthesia Postop Eval I: Fluid Summary Crystalloid volume administer 30 01/26/25 13:30 [email or web address] (ml) Colloids volume administered ( ml) Blood Product volume administered (ml) Total IV fluid infused 30 01/26/25 13:30 [email or web address] Anesthesia Postop Eval I: Summary Notes Anesthesia Complication No 01/26/25 13:30 [email or web address] Anesthesia Complication Comment: Post-operative progress note Anesthesia: Postop Eval II Evaluation Mental status: Awake Pain Level: 0 nausea: No Vomiting: No 01/26/25 1452 Date Arthur Rawls MD Cosigner Signature: Date CC: Signed Normal [facility] [id number] DOrdered By: Courtney Durham on 11-23-2024 Vitamin D 25-Hydroxy 89.1 ng/mL [facility] Comment on above: Vitamin D 25(OH) Sta tus Range Deficiency <20 ng/mL (50nmol/L) Insufficiency 20 - 30 ng/mL (50 - 75 nmol/L) Sufficiency 30 - 100 ng/mL (75 - 250 nmol/L) Toxicity >100 ng/mL (>250 nmol/L) ABD Limited w/ Elastographyo n 11-23-2024 ABD Limited w/ Elastography [facility] Imaging Services [address] [place], [place] [address] ABD Limited w/ Elastography MR#: [id number] Acct: [id number] Name: ASTRID DUMONT Rep #: [id number] : 1955 F 69 From: Jose piña MD PCP: Dr. Duong Durham MD Status: REG CLI Study: ABD Limited w/ Elastography Date of Exam: 11/13 11/06 Exam# [id number] Ordering Dr: Carri Luna PROCEDURE: ABD LIMITED W/ ELASTOGRAPHY REASON FOR EXAM: Fatty infiltration of the liver. COMPARISON: Comparison is made with prior study dated December 20, 2023. TECHNIQUE: Right upper quadrant abdominal ultrasound. Jef ElastQ Imaging shear wave elastography for non- invasive assessment of liver tissue stiffness. Jef EPIQ Elite. FINDINGS: LIVER: Size: Enlarged (hepatomegaly) Length: 21.1 cm cm Echotexture: Diffusely echogenic suggesting fatty infiltration Contour: Normal Lesions: None identified Elastography: EQI Med: 9.5 kPa EQI Med Vlad: 1.77 m/s IQR/Med: 14 %* GALLBLADDER: Normal COMMON BILE DUCT: Normal it measures 5 mm.. PANCREAS: Normal Visualized portions of the right kidney are unremarkable. There is a 2.5 cm x 2.3 cm x 2.4 cm renal cyst. Findings suggestive of multiple tiny nonobstructive intrarenal calculi. No right upper quadrant ascites. US/ABD Limited w/ Elastography IMPRESSION: MODERATE TO SEVERE HEPATIC FIBROSIS Reference Values: SRU <1.37 m/s (5.7kPa): No to mild fibrosis 1.37 m/s - 2.2 m/s: Moderate to severe fibrosis >2.2 m/s (15kPa): Significant fibrosis / cirrhosis METAVIR Score F2 or higher: 1.34 m/s (5.7kPa) F3 or higher: 1.55 m/s (7.3kPa) F4: 1.80 m/s (10kPa) * If the IQR/Med is >30%, the variance in the measurements is a large and the accuracy of the measurement may be in question. Reading Location: [id number] CC: Dr. Duong Durham MD; MIKE [employer] Adjuster: Signed Normal [facility] Absolute lymphocyte countOrd ered By: Duong Durham on 11-23-2024 Lymphocytes Auto (Unsp spec) [#/Vol] 1.36 10*3/uL 0.83-4.51 [facility] Absolute neutrophil countOrd ered By: Duong Durham on 11-23-2024 Neutrophils (Bld) [#/Vol] 3.6 10*3/uL 2.0-7.7 [facility] Albumin to globulin ratioOrd ered By: Duong Durham on 11-23-2024 Albumin/Globulin [Mass ratio] 0.9 {ratio} 0.9-2.4 [facility] Automated lymphocyte count a s percentage of total leukocytesOrdered By: Duong Durham on 11-23-2024 Lymphocytes/100 WBC Auto (Unsp spec) 22.3 % 19-41 [facility] Basophil percentageOrdered B y: Duong Durham on 11-23-2024 Basophils/100 WBC (Bld) 0.8 % 0-1 [facility] Bilirubin, totalOrdered By: Duong Durham on 11-23-2024 Bilirubin [Mass/Vol] 0.60 mg/dL 0.20-1.00 [facility] Comment on above: For patients on eltr ombopag therapy, use of Dimension [place] TBIL is not recommended. Blood urea nitrogen (BUN)/cr eatinine ratioOrdered By: Duong Durham on 11-23-2024 Urea nitrogen/Creatinine [Mass ratio] 16.3 mg/mg 10-20 [facility] CBC W/Diff, Automatedon 11-13 Absolute Lymph 1.36 X10 3/uL Normal 0.83-4.51 [facility] Comment on above: Order Comment: [id number] STOOL CULTURE Performed By: #### L 3410.9992, L7000.0750, M7400.3302, L7000.0700, M600.5000 #### [facility] [address] [place], [address] Absolute Neut 3.6 X10 3/uL Normal 2.0-7.7 [facility] Comment on above: Order Comment: [id number] STOOL CULTURE Performed By: #### L 3410.9992, L7000.0750, M7400.3302, L7000.0700, M600.5000 #### [facility] [address] [place], [address] Basophils/100 WBC (Bld) 0.8 % Normal 0-1 [facility] Comment on above: Order Comment: [id number] 4 STOOL CULTURE Performed By: #### L 3410.9992, L7000.0750, M7400.3302, L7000.0700, M600.5000 #### [facility] [address] [place], [address] Eosinophils/100 WBC (Bld) 5.1 % High 0-5 [facility] Comment on above: Order Comment: 01484 4 STOOL CULTURE Performed By: #### L 3410.9992, L7000.0750, M7400.3302, L7000.0700, M600.5000 #### [facility] [address] [place], [address] Erythrocyte distribution width (RBC) [Ratio] 13.3 % Normal 11.6-14.6 [facility] Comment on above: Order Comment: 94197 4 STOOL CULTURE Performed By: #### L 3410.9992, L7000.0750, M7400.3302, L7000.0700, M600.5000 #### [facility] [address] [place], [address] Hematocrit (Bld) [Volume fraction] 44.6 % Normal 37-47 [facility] Comment on above: Order Comment: 82209 4 STOOL CULTURE Performed By: #### L 3410.9992, L7000.0750, M7400.3302, L7000.0700, M600.5000 #### [facility] [address] [place], [address] Hemoglobin (Bld) [Mass/Vol] 14.8 g/dL Normal 12.0-15.0 [facility] Comment on above: Order Comment: 58001 STOOL CULTURE Performed By: #### L 3410.9992, L7000.0750, M7400.3302, L7000.0700, M600.5000 #### [facility] [address] [place], [address] IG% 0.300 Normal 0.0-0.9 [facility] Comment on above: Order Comment: 61068 4 STOOL CULTURE Result Comment: IG% - Immature Granulocytes (promyelocytes, myelocytes and metamyelocytes) > 1% indicates that a LEFT SHIFT is Present. Performed By: #### L 3410.9992, L7000.0750, M7400.3302, L7000.0700, M600.5000 #### [facility] [address] [place], [address] Lymphocytes/100 WBC (Bld) 22.3 % Normal 19-41 [facility] Comment on above: Order Comment: 30564 STOOL CULTURE Performed By: #### L 3410.9992, L7000.0750, M7400.3302, L7000.0700, M600.5000 #### [facility] [address] [place], [address] MCH (RBC) [Entitic mass] 29.1 pg Normal 27.0-32.0 [facility] Comment on above: Order Comment: 33230 STOOL CULTURE Performed By: #### L 3410.9992, L7000.0750, M7400.3302, L7000.0700, M600.5000 #### [facility] [address] [place], [address] MCHC (RBC) [Mass/Vol] 33.2 g/dL Normal 32-36 [facility] Comment on above: Order Comment: 22134 4 STOOL CULTURE Performed By: #### L 3410.9992, L7000.0750, M7400.3302, L7000.0700, M600.5000 #### [facility] [address] [place], [address] MCV (RBC) [Entitic vol] 87.6 fL Normal 81-99 [facility] Comment on above: Order Comment: 32479 4 STOOL CULTURE Performed By: #### L 3410.9992, L7000.0750, M7400.3302, L7000.0700, M600.5000 #### [facility] [address] [place], [address] Monocytes/100 WBC (Bld) 12.8 % High 0-10 [facility] Comment on above: Order Comment: 72446 STOOL CULTURE Performed By: #### L 3410.9992, L7000.0750, M7400.3302, L7000.0700, M600.5000 #### [facility] [address] [place], [address] Neutrophils/100 WBC (Bld) 58.7 % Normal 47-70 [facility] Comment on above: Order Comment: 22637 STOOL CULTURE Performed By: #### L 3410.9992, L7000.0750, M7400.3302, L7000.0700, M600.5000 #### [facility] [address] [place], [address] Nucleated RBC (Bld) [#/Vol] 0 10*3/uL Normal 0-5 [facility] Comment on above: Order Comment: 66122 STOOL CULTURE Performed By: #### L 3410.9992, L7000.0750, M7400.3302, L7000.0700, M600.5000 #### [facility] [address] [place], [address] Platelet mean volume (Bld) [Entitic vol] 10.3 fL Normal 6.2-12.0 [facility] Comment on above: Order Comment: 57392 4 STOOL CULTURE Performed By: #### L 3410.9992, L7000.0750, M7400.3302, L7000.0700, M600.5000 #### [facility] [address] [place], [address] Platelets (Bld) [#/Vol] 234 10*3/uL Normal 150-450 [facility] Comment on above: Order Comment: 27535 STOOL CULTURE Performed By: #### L 3410.9992, L7000.0750, M7400.3302, L7000.0700, M600.5000 #### [facility] [address] [place], [address] RBC (Bld) [#/Vol] 5.09 10*6/uL Normal 4.2-5.4 [facility] Comment on above: Order Comment: 49179 4 STOOL CULTURE Performed By: #### L 3410.9992, L7000.0750, M7400.3302, L7000.0700, M600.5000 #### [facility] [address] [place], [address] RDW SD 42.7 fl Normal 35.1-43.9 [facility] Comment on above: Order Comment: 13440 4 STOOL CULTURE Performed By: #### L 3410.9992, L7000.0750, M7400.3302, L7000.0700, M600.5000 #### [facility] [address] [place], [address] WBC (Bld) [#/Vol] 6.1 10*3/uL Normal 4.4-11.0 [facility] Comment on above: Order Comment: 88588 4 STOOL CULTURE Performed By: #### L 3410.9992, L7000.0750, M7400.3302, L7000.0700, M600.5000 #### [facility] [address] [place], [address] Carbon dioxide measurementOr dered By: Duong Durham on 11-23-2024 CO2 [Moles/Vol] 30.0 mmol/L 21.0-32.0 [facility] Chloride measurementOrdered By: Duong Durham on 11-23-2024 Chloride [Moles/Vol] 100 mmol/L 98-107 [facility] Comprehensive Metabolic Prof ilon 11-23-2024 Albumin [Mass/Vol] 4.1 g/dL Normal 3.2-5.0 [facility] Comment on above: Order Comment: Order Date: 08/19/24Order Info: [id number] - CMPOrder Info: [id number] - LIPIDOrder Info: [id number] - MGOrder Info: [id number] - TSHOrder Info: 3024-7 - T4F Performed By: #### L 3410.9992, L7000.0750, M7400.3302, L7000.0700, M600.5000 #### [facility] [address] [place], [address] Albumin/Globulin [Mass ratio] 0.9 {ratio} Normal 0.9-2.4 [facility] Comment on above: Order Comment: Order Date: 08/19/24Order Info: [id number] - CMPOrder Info: [id number] - LIPIDOrder Info: [id number] - MGOrder Info: [id number] - TSHOrder Info: 3024-7 - T4F Performed By: #### L 3410.9992, L7000.0750, M7400.3302, L7000.0700, M600.5000 #### [facility] [address] [place], [address] ALK P 81 U/L Normal 45-117 [facility] Comment on above: Order Comment: Order Date: 08/19/24Order Info: 86-1 - CMPOrder Info: [id number] - LIPIDOrder Info: [id number] - MGOrder Info: [id number] - TSHOrder Info: 3024-7 - T4F Performed By: #### L 3410.9992, L7000.0750, M7400.3302, L7000.0700, M600.5000 #### [facility] [address] [place], [address] ALT [Catalytic activity/Vol] 32 U/L Normal 13-56 [facility] Comment on above: Order Comment: Order Date: 08/19/24Order Info: 86-1 - CMPOrder Info: [id number] - LIPIDOrder Info: [id number] - MGOrder Info: [id number] - TSHOrder Info: 3024-7 - T4F Performed By: #### L 3410.9992, L7000.0750, M7400.3302, L7000.0700, M600.5000 #### [facility] [address] [place], [address] AST [Catalytic activity/Vol] 26 U/L Normal 15-37 [facility] Comment on above: Order Comment: Order Date: 08/19/24Order Info: 86-1 - CMPOrder Info: [id number] - LIPIDOrder Info: [id number] - MGOrder Info: [id number] - TSHOrder Info: 3024-7 - T4F Performed By: #### L 3410.9992, L7000.0750, M7400.3302, L7000.0700, M600.5000 #### [facility] [address] [place], [address] Bilirubin [Mass/Vol] 0.60 mg/dL Normal 0.20-1.00 [facility] Comment on above: Order Comment: Order Date: 08/19/24Order Info: 86-1 - CMPOrder Info: [id number] - LIPIDOrder Info: [id number] - MGOrder Info: [id number] - TSHOrder Info: 3024-7 - T4F Result Comment: For patients on eltrombopag therapy, use of Dimension [place] TBIL is not recommended. Performed By: #### L 3410.9992, L7000.0750, M7400.3302, L7000.0700, M600.5000 #### [facility] [address] [place], [address] BUN/CRE 16.3 RATIO Normal 10-20 [facility] Comment on above: Order Comment: Order Date: 08/19/24Order Info: [id number] - CMPOrder Info: [id number] - LIPIDOrder Info: [id number] - MGOrder Info: [id number] - TSHOrder Info: 3024-7 - T4F Performed By: #### L 3410.9992, L7000.0750, M7400.3302, L7000.0700, M600.5000 #### [facility] [address] [place], [address] CA,Total 9.8 mg/dL Normal 8.5-10.1 [facility] Comment on above: Order Comment: Order Date: 08/19/24Order Info: 86-1 - CMPOrder Info: [id number] - LIPIDOrder Info: [id number] - MGOrder Info: [id number] - TSHOrder Info: 3024-7 - T4F Performed By: #### L 3410.9992, L7000.0750, M7400.3302, L7000.0700, M600.5000 #### [facility] [address] [place], [address] Chloride [Moles/Vol] 100 mmol/L Normal 98-107 [facility] Comment on above: Order Comment: Order Date: 08/19/24Order Info: [id number] - CMPOrder Info: [id number] - LIPIDOrder Info: [id number] - MGOrder Info: [id number] - TSHOrder Info: 3024-7 - T4F Performed By: #### L 3410.9992, L7000.0750, M7400.3302, L7000.0700, M600.5000 #### [facility] [address] [place], [address] CO2 [Moles/Vol] 30.0 mmol/L Normal 21.0-32.0 [facility] Comment on above: Order Comment: Order Date: 08/19/24Order Info: 86-1 - CMPOrder Info: [id number] - LIPIDOrder Info: [id number] - MGOrder Info: [id number] - TSHOrder Info: 3024-7 - T4F Performed By: #### L 3410.9992, L7000.0750, M7400.3302, L7000.0700, M600.5000 #### [facility] [address] [place], [address] Creatinine [Mass/Vol] 0.98 mg/dL Normal 0.55-1.02 [facility] Comment on above: Order Comment: Order Date: 08/19/24Order Info: [id number] - CMPOrder Info: [id number] - LIPIDOrder Info: [id number] - MGOrder Info: 3 - TSHOrder Info: [id number] - T4F Result Comment: The validity of the calculated GFR GFRAA in patients over 70 years has not been determined. Clinical correlation is essential. Performed By: #### L 3410.9992, L7000.0750, M7400.3302, L7000.0700, M600.5000 #### [facility] [address] [place], [address] EST GFR - AA 72 mL/min Normal >60 [facility] Comment on above: Order Comment: Order Date: 08/19/24Order Info: 86-1 - CMPOrder Info: [id number] - LIPIDOrder Info: [id number] - MGOrder Info: [id number] - TSHOrder Info: 3024-7 - T4F Result Comment: Afri can Lao GFR Calc Performed By: #### L 3410.9992, L7000.0750, M7400.3302, L7000.0700, M600.5000 #### [facility] [address] [place], [place], [address] GAP 8 Normal 5-15 [facility] Comment on above: Order Comment: Order Date: 08/19/24Order Info: 86-1 - CMPOrder Info: [id number] - LIPIDOrder Info: [id number] - MGOrder Info: 3 - TSHOrder Info: 3027 - T4F Performed By: #### L 3410.9992, L7000.0750, M7400.3302, L7000.0700, M600.5000 #### [facility] [address] [place], [place], [address] GFR/1.73 sq M.predicted among non-blacks MDRD (S/P/Bld) [Vol rate/Area] 60 mL/min/{1.73_m2} Normal >60 [facility] Comment on above: Order Comment: Order Date: 08/19/24Order Info: [id number] - CMPOrder Info: - LIPIDOrder Info: [id number] - MGOrder Info: [id number] - TSHOrder Info: 7 - T4F Result Comment: Non- GFR Calc Performed By: #### L 3410.9992, L7000.0750, M7400.3302, L7000.0700, M600.5000 #### [facility] [address] [place], [place], [address] Globulin (S) [Mass/Vol] 4.5 g/dL High 2.2-4.2 [facility] Comment on above: Order Comment: Order Date: 08/19/24Order Info: 785-1 - CMPOrder Info: [id number] - LIPIDOrder Info: [id number] - MGOrder Info: 3 - TSHOrder Info: [id number] - T4F Performed By: #### L 3410.9992, L7000.0750, M7400.3302, L7000.0700, M600.5000 #### [facility] [address] [place], [address] Glucose [Mass/Vol] 165 mg/dL High 74-106 [facility] Comment on above: Order Comment: Order Date: 08/19/24Order Info: 785- - CMPOrder Info: [id number] - LIPIDOrder Info: [id number] - MGOrder Info: [id number] - TSHOrder Info: 7 - T4F Result Comment: Fast ing Glucose result greater than or equal to 126 mg/dL suggests DIABETES MELLITUS per A.D.A. criteria. Performed By: #### L 3410.9992, L7000.0750, M7400.3302, L7000.0700, M600.5000 #### [facility] [address] [place], [address] Potassium [Moles/Vol] 3.9 mmol/L Normal 3.5-5.1 [facility] Comment on above: Order Comment: Order Date: 08/19/24Order Info: [id number] - CMPOrder Info: - LIPIDOrder Info: [id number] - MGOrder Info: [id number] - TSHOrder Info: 3024-04 - T4F Performed By: #### L 3410.9992, L7000.0750, M7400.3302, L7000.0700, M600.5000 #### [facility] [address] [place], [address] Sodium [Moles/Vol] 138 mmol/L Normal 136-145 [facility] Comment on above: Order Comment: Order Date: 08/19/24Order Info: [id number] - CMPOrder Info: [id number] - LIPIDOrder Info: [id number] - MGOrder Info: [id number] - TSHOrder Info: 7 - T4F Performed By: #### L 3410.9992, L7000.0750, M7400.3302, L7000.0700, M600.5000 #### [facility] [address] [place], [place], [address] T PROT 8.6 g/dL High 6.4-8.2 [facility] Comment on above: Order Comment: Order Date: 08/19/24Order Info: [id number] - CMPOrder Info: [id number] - LIPIDOrder Info: [id number] - MGOrder Info: [id number] - TSHOrder Info: 3024-7 - T4F Performed By: #### L 3410.9992, L7000.0750, M7400.3302, L7000.0700, M600.5000 #### [facility] [address] [place], [place], [address] Urea nitrogen [Mass/Vol] 16 mg/dL Normal 7-18 [facility] Comment on above: Order Comment: Order Date: 08/19/24Order Info: [id number] - CMPOrder Info: [id number] - LIPIDOrder Info: [id number] - MGOrder Info: [id number] - TSHOrder Info: [id number] - T4F Performed By: #### L 3410.9992, L7000.0750, M7400.3302, L7000.0700, M600.5000 #### [facility] [address] [place], [place], [address] Direct serum free thyroxine (FT4) measurementOrdered By: Duong Durham on 11-23-2024 Free T4 [Mass/Vol] 1.34 ng/dL 0.76-1.46 [facility] Eosinophil percentageOrdered By: Duong Durham on 11-23-2024 Eosinophils/100 WBC (Bld) 5.1 % High 0-5 [facility] Erythrocyte distribution wid th (RBC) [Ratio]Ordered By: Duong Durham on 11-23-2024 Erythrocyte distribution width (RBC) [Entitic vol] 42.7 fL 35.1-43.9 [facility] Erythrocyte distribution wid th ratioOrdered By: Duong Durham on 11-23-2024 Erythrocyte distribution width (RBC) [Ratio] 13.3 % 11.6-14.6 [facility] Erythrocyte distribution wid th standard deviationOrdered By: Duong Durham on 11-23-2024 Erythrocyte distribution width (RBC) [Ratio] 42.7 fl 35.1-43.9 [facility] Estimated glomerular filtrat ion rate (GFR) AmericanOrdered By: Duong Durham on 11-23-2024 Estimated GFR (MDRD) Amer 72 mL/min >60 [facility] Comment on above: GFR Calc Glomerular filtration rate ( GFR) estimationOrdered By: Duong Durham on 11-23-2024 Estimated GFR (MDRD) Non-Af Amer 60 mL/min >60 [facility] Comment on above: Non- GFR Calc GFR/1.73 sq M.predicted among non-blacks MDRD (S/P/Bld) [Vol rate/Area] 60 mL/min/{1.73_m2} >60 [facility] Comment on above: Non- GFR Calc Glucose measurementOrdered B y: Duong Durhma on 11-23-2024 Glucose [Mass/Vol] 165 mg/dL High 74-106 [facility] Comment on above: Fasting Glucose resu lt greater than or equal to 126 mg/dL suggests DIABETES MELLITUS per A.D.A. criteria. Hematocrit Auto (Bld) [Volum e fraction]Ordered By: Duong Durham on 11-23-2024 Hematocrit (Bld) [Volume fraction] 44.6 % 37-47 [facility] Hemoglobin A1con 11-23-2024 HbA1c (Bld) [Mass fraction] 6.6 % High 3.8-5.6 [facility] Comment on above: Order Comment: Order Date: 08/19/24Order Info: [id number] - A1C Result Comment: Norm al < 5.7 % Prediabetic 5.7 - 6.4 % Diabetic >or= 6.5 % Please note range changes. Performed By: #### L 3410.9992, L7000.0750, M7400.3302, L7000.0700, M600.5000 #### [facility] [address] [place], [place], [address] Hemoglobin A1c percentageOrd ered By: Duong Durham on 11-23-2024 HbA1c (Bld) [Mass fraction] 6.6 % High 3.8-5.6 [facility] Comment on above: Normal < 5.7 % Predi abetic 5.7 - 6.4 % Diabetic >or= 6.5 % Please note range changes. Hemoglobin measurementOrdere d By: Duong Durham on 11-23-2024 Hemoglobin (Bld) [Mass/Vol] 14.8 g/dL 12.0-15.0 [facility] High density lipoprotein (HD L) measurementOrdered By: Duong Durham on 11-23-2024 Cholesterol in HDL [Mass/Vol] 73 mg/dL >40 [facility] Comment on above: The drugs N-Acetylcy steine and Metamizole may falsely depress this assay. Reference Range HDL <40 mg/dL Low HDL Cholesterol HDL >or= 60 mg/dL High HDL Cholesterol Immature granulocytes/100 WB C Auto (Bld)Ordered By: Duong Durham on 11-23-2024 Immature granulocytes/100 WBC (Bld) 0.300 % 0.0-0.9 [facility] Comment on above: IG% - Immature Granu locytes (promyelocytes, myelocytes and metamyelocytes) > 1% indicates that a LEFT SHIFT is Present. Laboratory - Chemistry and C hemistry - challengeOrdered By: Duong Durham on 11-23-2024 AST [Catalytic activity/Vol] 26 U/L 15-37 [facility] Lipid Profileon 11-23-2024 Cholesterol [Mass/Vol] 133 mg/dL Normal 200 [facility] Comment on above: Order Comment: Order Date: 08/19/24Order Info: [id number] - CMPOrder Info: [id number] - LIPIDOrder Info: [id number] - MGOrder Info: [id number] - TSHOrder Info: [id number] - T4F Result Comment: <200 mg/dL Desirable 200-240 mg/dL Borderline >240 mg/dL High Risk Performed By: #### L 3410.9992, L7000.0750, M7400.3302, L7000.0700, M600.5000 #### [facility] [address] [place], [address] Cholesterol in HDL [Mass/Vol] 73 mg/dL Normal [facility] Comment on above: Order Comment: Order Date: 08/19/24Order Info: [id number] - CMPOrder Info: [id number] - LIPIDOrder Info: [id number] - MGOrder Info: [id number] - TSHOrder Info: [id number] - T4F Result Comment: The drugs N-Acetylcysteine and Metamizole may falsely depress this assay. Reference Range HDL <40 mg/dL Low HDL Cholesterol HDL >or= 60 mg/dL High HDL Cholesterol Performed By: #### L 3410.9992, L7000.0750, M7400.3302, L7000.0700, M600.5000 #### [facility] [address] [place], [address] Cholesterol in LDL [Mass/Vol] 40 mg/dL Normal 0-130 [facility] Comment on above: Order Comment: Order Date: 08/19/24Order Info: [id number]- - CMPOrder Info: - LIPIDOrder Info: [id number] - MGOrder Info: 3 - TSHOrder Info: 4-7 - T4F Performed By: #### L 3410.9992, L7000.0750, M7400.3302, L7000.0700, M600.5000 #### [facility] [address] [place], [address] Cholesterol in VLDL [Mass/Vol] 20 mg/dL Normal 5-40 [facility] Comment on above: Order Comment: Order Date: 08/19/24Order Info: [id number]- - CMPOrder Info: [id number] - LIPIDOrder Info: [id number] - MGOrder Info: 3 - TSHOrder Info: [id number] - T4F Performed By: #### L 3410.9992, L7000.0750, M7400.3302, L7000.0700, M600.5000 #### [facility] [address] [place], [address] Triglyceride [Mass/Vol] 99 mg/dL Normal [facility] Comment on above: Order Comment: Order Date: 08/19/24Order Info: [id number] - CMPOrder Info: [id number] - LIPIDOrder Info: [id number] - MGOrder Info: [id number] - TSHOrder Info: [id number] - T4F Result Comment: The drugs N-Acetylcysteine and Metamizole may falsely depress this assay. Serum Triglycerides Reference Interval Normal <150 mg/dL Borderline high 150 - 199 mg/dL High 200 - 499 mg/dL Very High > or = 500 mg/dL Performed By: #### L 3410.9992, L7000.0750, M7400.3302, L7000.0700, M600.5000 #### [facility] [address] [place], [address] Low density lipoprotein (LDL ) cholesterol measurementOrdered By: Duong Durham on 11-23-2024 Cholesterol in LDL [Mass/Vol] 40 mg/dL 0-130 [facility] Lymphocytes Auto (Unsp spec) [#/Vol]Ordered By: Duong Durham on 11-23-2024 Lymphocytes (Bld) [#/Vol] 1.36 10*3/uL 0.83-4.51 [facility] Lymphocytes/100 WBC Auto (Un sp spec)Ordered By: Duong Durham on 11-23-2024 Lymphocytes/100 WBC (Bld) 22.3 % 19-41 [facility] MCV (mean corpuscular volume ) determinationOrdered By: Duong Durham on 11-23-2024 MCV (RBC) [Entitic vol] 87.6 fL 81-99 [facility] Magnesiumon 11-23-2024 Magnesium [Mass/Vol] 1.5 mg/dL Low 1.6-2.6 [facility] Comment on above: Order Comment: Order Date: 08/19/24Order Info: [id number] - CMPOrder Info: [id number] - LIPIDOrder Info: - MGOrder Info: [id number] - TSHOrder Info: [id number] - T4F Performed By: #### L 3410.9992, L7000.0750, M7400.3302, L7000.0700, M600.5000 #### [facility] [address] [place], [place], [address] Magnesium measurementOrdered By: Duong Durham on 11-23-2024 Magnesium [Mass/Vol] 1.5 mg/dL Low 1.6-2.6 [facility] Mean corpuscular hemoglobin (MCH) determinationOrdered By: Duong Durham on 11-23-2024 MCH (RBC) [Entitic mass] 29.1 pg 27.0-32.0 [facility] Mean corpuscular hemoglobin concentration (MCHC) determinationOrdered By: Duong Durham on 11-23-2024 MCHC (RBC) [Mass/Vol] 33.2 g/dL 32-36 [facility] Mean platelet volume determi nationOrdered By: Duong Durham on 11-23-2024 Platelet mean volume (Bld) [Entitic vol] 10.3 fL 6.2-12.0 [facility] Microalb:Creat Ratio,Random URon 11-23-2024 Creatinine [Mass/Vol] 148.00 mg/dL Normal NO RAN GE EST. [facility] Comment on above: Order Comment: Order Date: 08/19/24Order Info: [id number] - MIACRE Performed By: #### L 3410.9992, L7000.0750, M7400.3302, L7000.0700, M600.5000 #### [facility] [address] [place], [place], [address] MALB:CRE 20.7 mg/g CRE Normal <30 mg/g CRE [facility] Comment on above: Order Comment: Order Date: 08/19/24Order Info: [id number] - MIACRE Performed By: #### L 3410.9992, L7000.0750, M7400.3302, L7000.0700, M600.5000 #### [facility] [address] [place], [place], [id number] MICROALBUMIN,UR 30.7 mg/L Normal NO RANGE EST. [facility] Comment on above: Order Comment: Order Date: 08/19/24Order Info: [id number] - MIACRE Performed By: #### L 3410.9992, L7000.0750, M7400.3302, L7000.0700, M600.5000 #### [facility] [address] [place], [address] Monocyte percentageOrdered B y: Duong Durham on 11-23-2024 Monocytes/100 WBC (Bld) 12.8 % High 0-10 [facility] Neutrophil percentageOrdered By: Duong Durham on 11-23-2024 Neutrophils/100 WBC (Bld) 58.7 % 47-70 [facility] Nucleated red blood cell per centageOrdered By: Duong Durham on 11-23-2024 Nucleated RBC/100 WBC (Bld) [Ratio] 0 % 0-5 [facility] Platelet countOrdered By: Gudelia Durham on 11-23-2024 Platelets (Bld) [#/Vol] 234 10*3/uL 150-450 [facility] Potassium measurementOrdered By: Duong Durham on 11-23-2024 Potassium [Moles/Vol] 3.9 mmol/L 3.5-5.1 [facility] RBC Auto (Bld) [#/Vol]Ordere d By: Duong Durham on 11-23-2024 RBC (Bld) [#/Vol] 5.09 10*6/uL 4.2-5.4 [facility] Random urine microalbumin me asurementOrdered By: Duong Durham on 11-23-2024 Urine Random Microalbumin 30.7 mg/L NO RANGE EST. [facility] Serum anion gap measurementO rdered By: Duong Durham on 11-23-2024 Anion gap [Moles/Vol] 8 mmol/L 5-15 [facility] Serum globulin measurementOr dered By: Duong Durham on 11-23-2024 Globulin (S) [Mass/Vol] 4.5 g/dL High 2.2-4.2 [facility] Serum or plasma alanine salomon otransferase (ALT) measurementOrdered By: Duong Durham on 11-23-2024 ALT [Catalytic activity/Vol] 32 U/L 13-56 [facility] Serum or plasma albumin jackson urement (mass/volume)Ordered By: Duong Durham on 11-23-2024 Albumin [Mass/Vol] 4.1 g/dL 3.2-5.0 [facility] Serum or plasma alkaline oren sphatase measurementOrdered By: Duong Durham on 11-23-2024 ALP [Catalytic activity/Vol] 81 U/L 45-117 [facility] Serum or plasma calcium jackson urement (mass/volume)Ordered By: Duong Durham on 11-23-2024 Calcium [Mass/Vol] 9.8 mg/dL 8.5-10.1 [facility] Serum or plasma cholesterol measurement (mass/volume)Ordered By: Duong Durham on 11-23-2024 Cholesterol [Mass/Vol] 133 mg/dL <200 [facility] Comment on above: <200 mg/dL Desirable 200-240 mg/dL Borderline >240 mg/dL High Risk Serum or plasma creatinine m easurement (mass/volume)Ordered By: Duong Durham on 11-23-2024 Creatinine [Mass/Vol] 0.98 mg/dL 0.55-1.02 [facility] Comment on above: The validity of the calculated GFR & GFRAA in patients over 70 years has not been determined. Clinical correlation is essential. Serum or plasma thyroid stim ulating hormone (TSH) measurement (units/volume)Ordered By: Duong Durham on 11-23-2024 TSH Qn 5.590 uIU/mL High 0.358-3.740 [facility] Serum or plasma urea nitroge n measurement (mass/volume)Ordered By: Duong Durham on 11-23-2024 Urea nitrogen [Mass/Vol] 16 mg/dL 7-18 [facility] Sodium levelOrdered By: Duong Durham on 11-23-2024 Sodium [Moles/Vol] 138 mmol/L 136-145 [facility] T4 Free Directon 11-23-2024 T4 FREE DIRECT 1.34 ng/dL Normal 0.76-1.46 [facility] Comment on above: Order Comment: Order Date: 08/19/24Order Info: [id number] - CMPOrder Info: [id number] - LIPIDOrder Info: [id number] - MGOrder Info: [id number] - TSHOrder Info: 3024-7 - T4F Performed By: #### L 3410.9992, L7000.0750, M7400.3302, L7000.0700, M600.5000 #### [facility] [address] [place], [place], [id number] TSH QnOrdered By: Duong stone on 11-23-2024 Thyroid Stimulating Hormone (TSH) 5.590 uIU/mL High 0.358-3.740 [facility] Thyroid Stim Hormone (TSH)on 11-23-2024 TSH 5.590 uIU/mL High 0.358-3.740 [facility] Comment on above: Order Comment: Order Date: 08/19/24Order Info: [id number] - CMPOrder Info: [id number] - LIPIDOrder Info: [id number] - MGOrder Info: 63 - TSHOrder Info: 7 - T4F Performed By: #### L 3410.9992, L7000.0750, M7400.3302, L7000.0700, M600.5000 #### [facility] [address] [place], [place], [id number] Total proteinOrdered By: Marshal Durham on 11-23-2024 Protein [Mass/Vol] 8.6 g/dL High 6.4-8.2 [facility] Triglycerides measurementOrd ered By: Duong Durham on 11-23-2024 Triglyceride [Mass/Vol] 99 mg/dL <199 [facility] Comment on above: The drugs N-Acetylcy steine and Metamizole may falsely depress this assay.Serum Triglycerides Reference Interval Normal <150 mg/dL Borderline high 150 - 199 mg/dL High 200 - 499 mg/dL Very High > or = 500 mg/dL Urine albumin/creatinine rat io for detection of microalbuminuriaOrdered By: Duong Durham on 11-23-2024 Urine Microalbumin/Creatinine Ratio 20.7 mg/g CRE <30 [facility] Urine creatinine measurement (mass/volume)Ordered By: Duong Durham on 11-23-2024 Creatinine (U) [Mass/Vol] 148.00 mg/dL NO RANGE EST. [facility] Very low density lipoprotein (VLDL) cholesterol measurementOrdered By: Duong Durham on 11-23-2024 Very low density lipoprotein (VLDL) cholesterol measurement 20 mg/dL 5-40 [facility] VLDL Cholesterol 20 mg/dL 5-40 [facility] Vitamin D,25 Hydroxyon 11-23 Vitamin D 25-OH 89.1 ng/mL Normal [facility] Comment on above: Order Comment: Order Date: 08/19/24Order Info: [id number] - VITD25 Result Comment: Sherrell min D 25(OH) Status Range Deficiency <20 ng/mL (50nmol/L) Insufficiency 20 - 30 ng/mL (50 - 75 nmol/L) Sufficiency 30 - 100 ng/mL (75 - 250 nmol/L) Toxicity >100 ng/mL (>250 nmol/L) Performed By: #### L 3410.9992, L7000.0750, M7400.3302, L7000.0700, M600.5000 #### [facility] [address] [place], [address] White blood cell (WBC) count Ordered By: Duong Durham on 11-23-2024 WBC (Bld) [#/Vol] 6.1 10*3/uL 4.4-11.0 [facility] CBC W/Diff, Automatedon 10-3 Absolute Lymph 1.57 X10 3/uL Normal 0.83-4.51 [facility] Comment on above: Order Comment: DR. Monik VANCE ORDERED CBCD,LIPID,MG,FT4,CMP,A1,VITD,TSHDR.CHNAJd ORDERED CMP, CBCD,INR,CRP,PHOS,A1,LIPID,MG,Order Date: 05/14/24Order Info: [id number] - CBCD Performed By: #### L 3410.9992, L7000.0750, M7400.3302, L7000.0700, M600.5000 #### [facility] [address] [place], [address] Absolute Neut 2.4 X10 3/uL Normal 2.0-7.7 [facility] Comment on above: Order Comment: DR. Monik VANCE ORDERED CBCD,LIPID,MG,FT4,CMP,A1,VITD,TSHDR.CHNAD ORDERED CMP, CBCD,INR,CRP,PHOS,A1,LIPID,MG,Order Date: 05/14/24Order Info: [id number] - CBCD Performed By: #### L 3410.9992, L7000.0750, M7400.3302, L7000.0700, M600.5000 #### [facility] [address] [place], [address] Basophils/100 WBC (Bld) 0.6 % Normal 0-1 [facility] Comment on above: Order Comment: DR. Monik VANCE ORDERED CBCD,LIPID,MG,FT4,CMP,A1,VITD,TSHDR.CHNAD ORDERED CMP, CBCD,INR,CRP,PHOS,A1,LIPID,MG,Order Date: 05/14/24Order Info: [id number] - CBCD Performed By: #### L 3410.9992, L7000.0750, M7400.3302, L7000.0700, M600.5000 #### [facility] [address] [place], [address] Eosinophils/100 WBC (Bld) 7.3 % High 0-5 [facility] Comment on above: Order Comment: DR. Monik VANCE ORDERED CBCD,LIPID,MG,FT4,CMP,A1,VITD,TSHDR.CHNAD ORDERED CMP, CBCD,INR,CRP,PHOS,A1,LIPID,MG,Order Date: 05/14/24Order Info: [id number] - CBCD Performed By: #### L 3410.9992, L7000.0750, M7400.3302, L7000.0700, M600.5000 #### [facility] [address] [place], [address] Erythrocyte distribution width (RBC) [Ratio] 13.4 % Normal 11.6-14.6 [facility] Comment on above: Order Comment: DR. Monik VANCE ORDERED CBCD,LIPID,MG,FT4,CMP,A1,VITD,TSHDR.CHNAD ORDERED CMP, CBCD,INR,CRP,PHOS,A1,LIPID,MG,Order Date: 05/14/24Order Info: [id number]- - CBCD Performed By: #### L 3410.9992, L7000.0750, M7400.3302, L7000.0700, M600.5000 #### [facility] [address] [place], [address] Hematocrit (Bld) [Volume fraction] 41.1 % Normal 37-47 [facility] Comment on above: Order Comment: DR. Monik VANCE ORDERED CBCD,LIPID,MG,FT4,CMP,A1,VITD,TSHDR.CHNAD ORDERED CMP, CBCD,INR,CRP,PHOS,A1,LIPID,MG,Order Date: 05/14/24Order Info: [id number]- - CBCD Performed By: #### L 3410.9992, L7000.0750, M7400.3302, L7000.0700, M600.5000 #### [facility] [address] [place], [address] (178) Hemoglobin (Bld) [Mass/Vol] 13.2 g/dL Normal 12.0-15.0 [facility] Comment on above: Order Comment: DR. Monik VANCE ORDERED CBCD,LIPID,MG,FT4,CMP,A1,VITD,TSHDR.CHNAD ORDERED CMP, CBCD,INR,CRP,PHOS,A1,LIPID,MG,Order Date: 05/14/24Order Info: 0184- - CBCD Performed By: #### L 3410.9992, L7000.0750, M7400.3302, L7000.0700, M600.5000 #### [facility] [address] [place], [address] IG% 0.200 Normal 0.0-0.9 [facility] Comment on above: Order Comment: DR. Monik VANCE ORDERED CBCD,LIPID,MG,FT4,CMP,A1,VITD,TSHDR.CHNAD ORDERED CMP, CBCD,INR,CRP,PHOS,A1,LIPID,MG,Order Date: 05/14/24Order Info: [id number] - CBCD Result Comment: IG% - Immature Granulocytes (promyelocytes, myelocytes and metamyelocytes) > 1% indicates that a LEFT SHIFT is Present. Performed By: #### L 3410.9992, L7000.0750, M7400.3302, L7000.0700, M600.5000 #### [facility] [address] [place], [address] Lymphocytes/100 WBC (Bld) 32.6 % Normal 19-41 [facility] Comment on above: Order Comment: DR. Monik VANCE ORDERED CBCD,LIPID,MG,FT4,CMP,A1,VITD,TSHDR.CHNAD ORDERED CMP, CBCD,INR,CRP,PHOS,A1,LIPID,MG,Order Date: 05/14/24Order Info: 0184- - CBCD Performed By: #### L 3410.9992, L7000.0750, M7400.3302, L7000.0700, M600.5000 #### [facility] [address] [place], [address] MCH (RBC) [Entitic mass] 28.7 pg Normal 27.0-32.0 [facility] Comment on above: Order Comment: DR. Monik VANEC ORDERED CBCD,LIPID,MG,FT4,CMP,A1,VITD,TSHDR.CHNAD ORDERED CMP, CBCD,INR,CRP,PHOS,A1,LIPID,MG,Order Date: 05/14/24Order Info: 0184-1 - CBCD Performed By: #### L 3410.9992, L7000.0750, M7400.3302, L7000.0700, M600.5000 #### [facility] [address] [place], [address] MCHC (RBC) [Mass/Vol] 32.1 g/dL Normal 32-36 [facility] Comment on above: Order Comment: DR. Mnoik VANCE ORDERED CBCD,LIPID,MG,FT4,CMP,A1,VITD,TSHDR.CHNAD ORDERED CMP, CBCD,INR,CRP,PHOS,A1,LIPID,MG,Order Date: 05/14/24Order Info: 0184- - CBCD Performed By: #### L 3410.9992, L7000.0750, M7400.3302, L7000.0700, M600.5000 #### [facility] [address] [place], [place], [id number] MCV (RBC) [Entitic vol] 89.3 fL Normal 81-99 [facility] Comment on above: Order Comment: DR. Monik VANCE ORDERED CBCD,LIPID,MG,FT4,CMP,A1,VITD,TSHDR.CHNAD ORDERED CMP, CBCD,INR,CRP,PHOS,A1,LIPID,MG,Order Date: 05/14/24Order Info: 018- - CBCD Performed By: #### L 3410.9992, L7000.0750, M7400.3302, L7000.0700, M600.5000 #### [facility] [address] [place], [address] Monocytes/100 WBC (Bld) 9.1 % Normal 0-10 [facility] Comment on above: Order Comment: DR. Monik VANCE ORDERED CBCD,LIPID,MG,FT4,CMP,A1,VITD,TSHDR.CHNAD ORDERED CMP, CBCD,INR,CRP,PHOS,A1,LIPID,MG,Order Date: 05/14/24Order Info: [id number] - CBCD Performed By: #### L 3410.9992, L7000.0750, M7400.3302, L7000.0700, M600.5000 #### [facility] [address] [place], [address] Neutrophils/100 WBC (Bld) 50.2 % Normal 47-70 [facility] Comment on above: Order Comment: DR. Monik VANCE ORDERED CBCD,LIPID,MG,FT4,CMP,A1,VITD,TSHDR.CHNAD ORDERED CMP, CBCD,INR,CRP,PHOS,A1,LIPID,MG,Order Date: 05/14/24Order Info: [id number] - CBCD Performed By: #### L 3410.9992, L7000.0750, M7400.3302, L7000.0700, M600.5000 #### [facility] [address] [place], [address] Nucleated RBC (Bld) [#/Vol] 0 10*3/uL Normal 0-5 [facility] Comment on above: Order Comment: DR. Monik VANCE ORDERED CBCD,LIPID,MG,FT4,CMP,A1,VITD,TSHDR.CHNAD ORDERED CMP, CBCD,INR,CRP,PHOS,A1,LIPID,MG,Order Date: 05/14/24Order Info: 0184- - CBCD Performed By: #### L 3410.9992, L7000.0750, M7400.3302, L7000.0700, M600.5000 #### [facility] [address] [place], [address] Platelet mean volume (Bld) [Entitic vol] 9.7 fL Normal 6.2-12.0 [facility] Comment on above: Order Comment: DR. Monik VANCE ORDERED CBCD,LIPID,MG,FT4,CMP,A1,VITD,TSHDR.CHNAD ORDERED CMP, CBCD,INR,CRP,PHOS,A1,LIPID,MG,Order Date: 05/14/24Order Info: [id number] - CBCD Performed By: #### L 3410.9992, L7000.0750, M7400.3302, L7000.0700, M600.5000 #### [facility] [address] [place], [address] Platelets (Bld) [#/Vol] 264 10*3/uL Normal 150-450 [facility] Comment on above: Order Comment: DR. Monik VANCE ORDERED CBCD,LIPID,MG,FT4,CMP,A1,VITD,TSHDR.CHNAD ORDERED CMP, CBCD,INR,CRP,PHOS,A1,LIPID,MG,Order Date: 05/14/24Order Info: [id number] - CBCD Performed By: #### L 3410.9992, L7000.0750, M7400.3302, L7000.0700, M600.5000 #### [facility] [address] [place], [address] RBC (Bld) [#/Vol] 4.60 10*6/uL Normal 4.2-5.4 [facility] Comment on above: Order Comment: DR. Monik VANCE ORDERED CBCD,LIPID,MG,FT4,CMP,A1,VITD,TSHDR.CHNAD ORDERED CMP, CBCD,INR,CRP,PHOS,A1,LIPID,MG,Order Date: 05/14/24Order Info: [id number] - CBCD Performed By: #### L 3410.9992, L7000.0750, M7400.3302, L7000.0700, M600.5000 #### [facility] [address] [place], [address] RDW SD 43.5 fl Normal 35.1-43.9 [facility] Comment on above: Order Comment: DR. Monik VANCE ORDERED CBCD,LIPID,MG,FT4,CMP,A1,VITD,TSHDR.CHNAD ORDERED CMP, CBCD,INR,CRP,PHOS,A1,LIPID,MG,Order Date: 05/14/24Order Info: [id number] - CBCD Performed By: #### L 3410.9992, L7000.0750, M7400.3302, L7000.0700, M600.5000 #### [facility] [address] [place], [address] WBC (Bld) [#/Vol] 4.8 10*3/uL Normal 4.4-11.0 [facility] Comment on above: Order Comment: DR. Monik VANCE ORDERED CBCD,LIPID,MG,FT4,CMP,A1,VITD,TSHDR.CHNAJd ORDERED CMP, CBCD,INR,CRP,PHOS,A1,LIPID,MG,Order Date: 05/14/24Order Info: [id number] - CBCD Performed By: #### L 3410.9992, L7000.0750, M7400.3302, L7000.0700, M600.5000 #### [facility] [address] [place], [address] Absolute Neut Normal 2.0-7.7 [facility] Comment on above: Result Comment: DUPL ICATE ORDERS Performed By: #### L 3410.9992, L7000.0750, M7400.3302, L7000.0700, M600.5000 #### [facility] [address] [place], [address] HCT Normal 37-47 [facility] Comment on above: Result Comment: DUPL ICATE ORDERS Performed By: #### L 3410.9992, L7000.0750, M7400.3302, L7000.0700, M600.5000 #### [facility] [address] [place], [address] HGB Normal 12.0-15.0 [facility] Comment on above: Result Comment: DUPL ICATE ORDERS Performed By: #### L 3410.9992, L7000.0750, M7400.3302, L7000.0700, M600.5000 #### [facility] [address] [place], [address] MCH Normal 27.0-32.0 [facility] Comment on above: Result Comment: DUPL ICATE ORDERS Performed By: #### L 3410.9992, L7000.0750, M7400.3302, L7000.0700, M600.5000 #### [facility] [address] [place], [address] MCHC Normal 32-36 [facility] Comment on above: Result Comment: DUPL ICATE ORDERS Performed By: #### L 3410.9992, L7000.0750, M7400.3302, L7000.0700, M600.5000 #### [facility] [address] [place], [address] MCV Normal 81-99 [facility] Comment on above: Result Comment: DUPL ICATE ORDERS Performed By: #### L 3410.9992, L7000.0750, M7400.3302, L7000.0700, M600.5000 #### [facility] [address] [place], [address] NEUT% Normal 47-70 [facility] Comment on above: Result Comment: DUPL ICATE ORDERS Performed By: #### L 3410.9992, L7000.0750, M7400.3302, L7000.0700, M600.5000 #### [facility] [address] [place], [address] PLT Normal 150-450 [facility] Comment on above: Result Comment: DUPL ICATE ORDERS Performed By: #### L 3410.9992, L7000.0750, M7400.3302, L7000.0700, M600.5000 #### [facility] [address] [place], [address] RBC Normal 4.2-5.4 [facility] Comment on above: Result Comment: DUPL ICATE ORDERS Performed By: #### L 3410.9992, L7000.0750, M7400.3302, L7000.0700, M600.5000 #### [facility] [address] [place], [address] RDW CV Normal 11.6-14.6 [facility] Comment on above: Result Comment: DUPL ICATE ORDERS Performed By: #### L 3410.9992, L7000.0750, M7400.3302, L7000.0700, M600.5000 #### [facility] [address] [place], [address] RDW SD Normal 35.1-43.9 [facility] Comment on above: Result Comment: DUPL ICATE ORDERS Performed By: #### L 3410.9992, L7000.0750, M7400.3302, L7000.0700, M600.5000 #### [facility] [address] [place], [address] WBC Normal 4.4-11.0 [facility] Comment on above: Result Comment: DUPL ICATE ORDERS Performed By: #### L 3410.9992, L7000.0750, M7400.3302, L7000.0700, M600.5000 #### [facility] [address] [place], [address] CRPon 08-12-2024 C-REACTIVE PROT < 2.90 Normal 0.0-3.0 [facility] Comment on above: Result Comment: C-Re active Protein (CRP) provides useful information for the diagnosis, therapy and monitoring of inflammatory processes and associated diseases. For the evaluation of Relative Risk for Cardiovascular Disease, a High Sensitivity CRP (HSCRP) should be ordered. Performed By: #### L 3410.9992, L7000.0750, M7400.3302, L7000.0700, M600.5000 #### [facility] [address] [place], [address] Comprehensive Metabolic Prof ilon 08-12-2024 Albumin [Mass/Vol] 3.7 g/dL Normal 3.2-5.0 [facility] Comment on above: Order Comment: DR. Monik VANCE ORDERED CBCD,LIPID,MG,FT4,CMP,A1,VITD,TSHDR.CHNAD ORDERED CMP, CBCD,INR,CRP,PHOS,A1,LIPID,MG,Order Date: 05/14/24Order Info: 785- - CMPOrder Info: - LIPIDOrder Info: - MGOrder Info: [id number] - TSHOrder Info: 7 - T4F Performed By: #### L 3410.9992, L7000.0750, M7400.3302, L7000.0700, M600.5000 #### [facility] [address] [place], [address] Albumin/Globulin [Mass ratio] 0.9 {ratio} Normal 0.9-2.4 [facility] Comment on above: Order Comment: DR. Monik VANCE ORDERED CBCD,LIPID,MG,FT4,CMP,A1,VITD,TSHDR.CHNAD ORDERED CMP, CBCD,INR,CRP,PHOS,A1,LIPID,MG,Order Date: 05/14/24Order Info: [id number] - CMPOrder Info: - LIPIDOrder Info: - MGOrder Info: [id number] - TSHOrder Info: [id number] - T4F Performed By: #### L 3410.9992, L7000.0750, M7400.3302, L7000.0700, M600.5000 #### [facility] [address] [place], [address] ALK P 75 U/L Normal 45-117 [facility] Comment on above: Order Comment: DR. Monik VANCE ORDERED CBCD,LIPID,MG,FT4,CMP,A1,VITD,TSHDR.CHNAD ORDERED CMP, CBCD,INR,CRP,PHOS,A1,LIPID,MG,Order Date: 05/14/24Order Info: 785- - CMPOrder Info: - LIPIDOrder Info: - MGOrder Info: [id number] - TSHOrder Info: 3024-04 - T4F Performed By: #### L 3410.9992, L7000.0750, M7400.3302, L7000.0700, M600.5000 #### [facility] [address] [place], [address] ALT [Catalytic activity/Vol] 37 U/L Normal 13-56 [facility] Comment on above: Order Comment: DR. Monik VANCE ORDERED CBCD,LIPID,MG,FT4,CMP,A1,VITD,TSHDR.CHNAD ORDERED CMP, CBCD,INR,CRP,PHOS,A1,LIPID,MG,Order Date: 05/14/24Order Info: 86- - CMPOrder Info: - LIPIDOrder Info: - MGOrder Info: [id number] - TSHOrder Info: [id number] - T4F Performed By: #### L 3410.9992, L7000.0750, M7400.3302, L7000.0700, M600.5000 #### [facility] [address] [place], [address] AST [Catalytic activity/Vol] 33 U/L Normal 15-37 [facility] Comment on above: Order Comment: DR. Monik VANCE ORDERED CBCD,LIPID,MG,FT4,CMP,A1,VITD,TSHDR.CHNAD ORDERED CMP, CBCD,INR,CRP,PHOS,A1,LIPID,MG,Order Date: 05/14/24Order Info: 86- - CMPOrder Info: - LIPIDOrder Info: - MGOrder Info: [id number] - TSHOrder Info: 3024-04 - T4F Performed By: #### L 3410.9992, L7000.0750, M7400.3302, L7000.0700, M600.5000 #### [facility] [address] [place], [address] Bilirubin [Mass/Vol] 0.40 mg/dL Normal 0.20-1.00 [facility] Comment on above: Order Comment: DR. Monik VANCE ORDERED CBCD,LIPID,MG,FT4,CMP,A1,VITD,TSHDR.CHNAD ORDERED CMP, CBCD,INR,CRP,PHOS,A1,LIPID,MG,Order Date: 05/14/24Order Info: 86-1 - CMPOrder Info: [id number] - LIPIDOrder Info: [id number] - MGOrder Info: 3 - TSHOrder Info: 7 - T4F Result Comment: For patients on eltrombopag therapy, use of Dimension [place] TBIL is not recommended. Performed By: #### L 3410.9992, L7000.0750, M7400.3302, L7000.0700, M600.5000 #### [facility] [address] [place], [place], [id number] BUN/CRE 17.5 RATIO Normal 10-20 [facility] Comment on above: Order Comment: DR. Monik VANCE ORDERED CBCD,LIPID,MG,FT4,CMP,A1,VITD,TSHDR.CHNAD ORDERED CMP, CBCD,INR,CRP,PHOS,A1,LIPID,MG,Order Date: 05/14/24Order Info: [id number] - CMPOrder Info: - LIPIDOrder Info: - MGOrder Info: [id number] - TSHOrder Info: 7 - T4F Performed By: #### L [id number], L7000.0750, M7400.3302, L7000.0700, M600.5000 #### [facility] [address] [place], [place], [id number] [place],Total 9.3 mg/dL Normal 8.5-10.1 [facility] Comment on above: Order Comment: DR. Monik VANCE ORDERED CBCD,LIPID,MG,FT4,CMP,A1,VITD,TSHDR.CHNAJd ORDERED CMP, CBCD,INR,CRP,PHOS,A1,LIPID,MG,Order Date: 05/14/24Order Info: [id number]- - CMPOrder Info: - LIPIDOrder Info: - MGOrder Info: [id number] - TSHOrder Info: [id number] - T4F Performed By: #### L 3410.9992, L7000.0750, M7400.3302, L7000.0700, M600.5000 #### [facility] [address] [place], [address] Chloride [Moles/Vol] 106 mmol/L Normal 98-107 [facility] Comment on above: Order Comment: DR. Monik VANCE ORDERED CBCD,LIPID,MG,FT4,CMP,A1,VITD,TSHDR.CHNAD ORDERED CMP, CBCD,INR,CRP,PHOS,A1,LIPID,MG,Order Date: 05/14/24Order Info: 785-10 - CMPOrder Info: - LIPIDOrder Info: - MGOrder Info: [id number] - TSHOrder Info: 3024-04 - T4F Performed By: #### L 3410.9992, L7000.0750, M7400.3302, L7000.0700, M600.5000 #### [facility] [address] [place], [address] CO2 [Moles/Vol] 25.0 mmol/L Normal 21.0-32.0 [facility] Comment on above: Order Comment: DR. Monik VANCE ORDERED CBCD,LIPID,MG,FT4,CMP,A1,VITD,TSHDR.CHNAD ORDERED CMP, CBCD,INR,CRP,PHOS,A1,LIPID,MG,Order Date: 05/14/24Order Info: 785- - CMPOrder Info: - LIPIDOrder Info: - MGOrder Info: [id number] - TSHOrder Info: 3024-04 - T4F Performed By: #### L 3410.9992, L7000.0750, M7400.3302, L7000.0700, M600.5000 #### [facility] [address] [place], [place], [id number] Creatinine [Mass/Vol] 0.97 mg/dL Normal 0.55-1.02 [facility] Comment on above: Order Comment: DR. Monik VANCE ORDERED CBCD,LIPID,MG,FT4,CMP,A1,VITD,TSHDR.CHNAD ORDERED CMP, CBCD,INR,CRP,PHOS,A1,LIPID,MG,Order Date: 05/14/24Order Info: 0786-1 - CMPOrder Info: [id number] - LIPIDOrder Info: [id number] - MGOrder Info: 3016-3 - TSHOrder Info: 3024-7 - T4F Result Comment: The validity of the calculated GFR GFRAA in patients over 70 years has not been determined. Clinical correlation is essential. Performed By: #### L 3410.9992, L7000.0750, M7400.3302, L7000.0700, M600.5000 #### [facility] [address] [place], [place], [id number] EST GFR - AA 74 mL/min Normal >60 [facility] Comment on above: Order Comment: DR. Monik VANCE ORDERED CBCD,LIPID,MG,FT4,CMP,A1,VITD,TSHDR.CHNAD ORDERED CMP, CBCD,INR,CRP,PHOS,A1,LIPID,MG,Order Date: 05/14/24Order Info: 785-1 - CMPOrder Info: [id number] - LIPIDOrder Info: [id number] - MGOrder Info: 6-3 - TSHOrder Info: 3024-7 - T4F Result Comment: Afri can Lao GFR Calc Performed By: #### L 3410.9992, L7000.0750, M7400.3302, L7000.0700, M600.5000 #### [facility] [address] [place], [address] GAP 11 Normal 5-15 [facility] Comment on above: Order Comment: DR. Monik VANCE ORDERED CBCD,LIPID,MG,FT4,CMP,A1,VITD,TSHDR.CHNAD ORDERED CMP, CBCD,INR,CRP,PHOS,A1,LIPID,MG,Order Date: 05/14/24Order Info: 86- - CMPOrder Info: [id number] - LIPIDOrder Info: - MGOrder Info: [id number] - TSHOrder Info: 3024-04 - T4F Performed By: #### L 3410.9992, L7000.0750, M7400.3302, L7000.0700, M600.5000 #### [facility] [address] [facility] [place], [place], [id number] GFR/1.73 sq M.predicted among non-blacks MDRD (S/P/Bld) [Vol rate/Area] 61 mL/min/{1.73_m2} Normal >60 [facility] Comment on above: Order Comment: DR. Monik VANCE ORDERED CBCD,LIPID,MG,FT4,CMP,A1,VITD,TSHDR.CHNAD ORDERED CMP, CBCD,INR,CRP,PHOS,A1,LIPID,MG,Order Date: 05/14/24Order Info: 785-10 - CMPOrder Info: - LIPIDOrder Info: - MGOrder Info: [id number] - TSHOrder Info: 3024-04 - T4F Result Comment: Non- GFR Calc Performed By: #### L 3410.9992, L7000.0750, M7400.3302, L7000.0700, M600.5000 #### [facility] [address] [place], [place], [address] Globulin (S) [Mass/Vol] 4.0 g/dL Normal 2.2-4.2 [facility] Comment on above: Order Comment: DR. Monik VANCE ORDERED CBCD,LIPID,MG,FT4,CMP,A1,VITD,TSHDR.CHNAD ORDERED CMP, CBCD,INR,CRP,PHOS,A1,LIPID,MG,Order Date: 05/14/24Order Info: 86- - CMPOrder Info: - LIPIDOrder Info: - MGOrder Info: [id number] - TSHOrder Info: 3024-04 - T4F Performed By: #### L 3410.9992, L7000.0750, M7400.3302, L7000.0700, M600.5000 #### [facility] [address] [place], [place], [address] Glucose [Mass/Vol] 179 mg/dL High 74-106 [facility] Comment on above: Order Comment: DR. Monik VANCE ORDERED CBCD,LIPID,MG,FT4,CMP,A1,VITD,TSHDR.CHNAD ORDERED CMP, CBCD,INR,CRP,PHOS,A1,LIPID,MG,Order Date: 05/14/24Order Info: 785-10 - CMPOrder Info: - LIPIDOrder Info: - MGOrder Info: [id number] - TSHOrder Info: 3024-04 - T4F Result Comment: Fast ing Glucose result greater than or equal to 126 mg/dL suggests DIABETES MELLITUS per A.D.A. criteria. Performed By: #### L 3410.9992, L7000.0750, M7400.3302, L7000.0700, M600.5000 #### [facility] [address] [facility] [place], [place], [phone] Potassium [Moles/Vol] 3.7 mmol/L Normal 3.5-5.1 [facility] Comment on above: Order Comment: DR. Monik VANCE ORDERED CBCD,LIPID,MG,FT4,CMP,A1,VITD,TSHDR.CHNAD ORDERED CMP, CBCD,INR,CRP,PHOS,A1,LIPID,MG,Order Date: 05/14/24Order Info: 785-10 - CMPOrder Info: - LIPIDOrder Info: - MGOrder Info: [id number] - TSHOrder Info: 3024-04 - T4F Performed By: #### L 3410.9992, L7000.0750, M7400.3302, L7000.0700, M600.5000 #### [facility] [address] [place], [place], [address] Sodium [Moles/Vol] 142 mmol/L Normal 136-145 [facility] Comment on above: Order Comment: DR. Monik VANCE ORDERED CBCD,LIPID,MG,FT4,CMP,A1,VITD,TSHDR.CHNAD ORDERED CMP, CBCD,INR,CRP,PHOS,A1,LIPID,MG,Order Date: 05/14/24Order Info: 86-1 - CMPOrder Info: [id number] - LIPIDOrder Info: [id number] - MGOrder Info: 3016-3 - TSHOrder Info: 3024-7 - T4F Performed By: #### L 3410.9992, L7000.0750, M7400.3302, L7000.0700, M600.5000 #### [facility] [address] [place], [address] ( T PROT 7.7 g/dL Normal 6.4-8.2 [facility] Comment on above: Order Comment: DR. Monik VANCE ORDERED CBCD,LIPID,MG,FT4,CMP,A1,VITD,TSHDR.CHNAD ORDERED CMP, CBCD,INR,CRP,PHOS,A1,LIPID,MG,Order Date: 05/14/24Order Info: 785-1 - CMPOrder Info: [id number] - LIPIDOrder Info: [id number] - MGOrder Info: 3016-3 - TSHOrder Info: 3024-7 - T4F Performed By: #### L 3410.9992, L7000.0750, M7400.3302, L7000.0700, M600.5000 #### [facility] [address] [place], [place], [address] Urea nitrogen [Mass/Vol] 17 mg/dL Normal 7-18 [facility] Comment on above: Order Comment: DR. Monik VANCE ORDERED CBCD,LIPID,MG,FT4,CMP,A1,VITD,TSHDR.CHNAD ORDERED CMP, CBCD,INR,CRP,PHOS,A1,LIPID,MG,Order Date: 05/14/24Order Info: 0786-1 - CMPOrder Info: [id number] - LIPIDOrder Info: [id number] - MGOrder Info: 3016-3 - TSHOrder Info: 3024-7 - T4F Performed By: #### L 3410.9992, L7000.0750, M7400.3302, L7000.0700, M600.5000 #### [facility] [address] [place], [address] Hemoglobin A1con 08-12-2024 HbA1c (Bld) [Mass fraction] 6.9 % High 3.8-5.6 [facility] Comment on above: Order Comment: DR. Monik VANCE ORDERED CBCD,LIPID,MG,FT4,CMP,A1,VITD,TSHDR.CHNAJd ORDERED CMP, CBCD,INR,CRP,PHOS,A1,LIPID,MG,Order Date: 05/14/24Order Info: [id number] - A1C Result Comment: Norm al < 5.7 % Prediabetic 5.7 - 6.4 % Diabetic >or= 6.5 % Please note range changes. Performed By: #### L 3410.9992, L7000.0750, M7400.3302, L7000.0700, M600.5000 #### [facility] [address] [place], [address] Lipid Profileon 08-12-2024 Cholesterol [Mass/Vol] 126 mg/dL Normal 200 [facility] Comment on above: Order Comment: 94892 4 STOOL CULTURE Result Comment: <200 mg/dL Desirable 200-240 mg/dL Borderline >240 mg/dL High Risk Performed By: #### L 3410.9992, L7000.0750, M7400.3302, L7000.0700, M600.5000 #### [facility] [address] [place], [address] Cholesterol in HDL [Mass/Vol] 63 mg/dL Normal [facility] Comment on above: Order Comment: 20366 4 STOOL CULTURE Result Comment: The drugs N-Acetylcysteine and Metamizole may falsely depress this assay. Reference Range HDL <40 mg/dL Low HDL Cholesterol HDL >or= 60 mg/dL High HDL Cholesterol Performed By: #### L 3410.9992, L7000.0750, M7400.3302, L7000.0700, M600.5000 #### [facility] [address] [place], [address] Cholesterol in LDL [Mass/Vol] 47 mg/dL Normal 0-130 [facility] Comment on above: Order Comment: 46185 4 STOOL CULTURE Performed By: #### L 3410.9992, L7000.0750, M7400.3302, L7000.0700, M600.5000 #### [facility] [address] [place], [address] Cholesterol in VLDL [Mass/Vol] 16 mg/dL Normal 5-40 [facility] Comment on above: Order Comment: 42417 4 STOOL CULTURE Performed By: #### L 3410.9992, L7000.0750, M7400.3302, L7000.0700, M600.5000 #### [facility] [address] [place], [address] Triglyceride [Mass/Vol] 79 mg/dL Normal [facility] Comment on above: Order Comment: 06992 4 STOOL CULTURE Result Comment: The drugs N-Acetylcysteine and Metamizole may falsely depress this assay. Serum Triglycerides Reference Interval Normal <150 mg/dL Borderline high 150 - 199 mg/dL High 200 - 499 mg/dL Very High > or = 500 mg/dL Performed By: #### L 3410.9992, L7000.0750, M7400.3302, L7000.0700, M600.5000 #### [facility] [address] [place], [address] Magnesiumon 08-12-2024 Magnesium [Mass/Vol] 1.7 mg/dL Normal 1.6-2.6 [facility] Comment on above: Order Comment: 29032 4 STOOL CULTURE Performed By: #### L 3410.9992, L7000.0750, M7400.3302, L7000.0700, M600.5000 #### [facility] [address] [place] [place], [address] Phosphoruson 08-12-2024 Phosphate [Mass/Vol] 4.2 mg/dL Normal 2.5-4.9 [facility] Comment on above: Performed By: #### L 3410.9992, L7000.0750, M7400.3302, L7000.0700, M600.5000 #### [facility] [address] [place], [address] Prothrombin Time w/INRon INR Coag (PPP) [Relative time] 1.0 {INR} Normal [facility] Comment on above: Performed By: #### L 3410.9992, L7000.0750, M7400.3302, L7000.0700, M600.5000 #### [facility] [address] [place], [address] PT Coag (PPP) [Time] 13.6 s Normal 11.7-14.9 [facility] Comment on above: Performed By: #### L 3410.9992, L7000.0750, M7400.3302, L7000.0700, M600.5000 #### [facility] [address] [place], [address] T4 Free Directon 08-12-2024 T4 FREE DIRECT 1.05 ng/dL Normal 0.76-1.46 [facility] Comment on above: Order Comment: 73381 4 STOOL CULTURE Performed By: #### L 3410.9992, L7000.0750, M7400.3302, L7000.0700, M600.5000 #### [facility] [address] [place], [address] Thyroid Stim Hormone (TSH)on 08-12-2024 TSH 2.000 uIU/mL Normal 0.358-3.740 [facility] Comment on above: Order Comment: 19373 4 STOOL CULTURE Performed By: #### L 3410.9992, L7000.0750, M7400.3302, L7000.0700, M600.5000 #### [facility] [address] [place], [address] Vitamin D,25 Hydroxyon 08-12 Vitamin D 25-OH 71.5 ng/mL Normal [facility] Comment on above: Order Comment: DR. Monik VANCE ORDERED CBCD,LIPID,MG,FT4,CMP,A1,VITD,TSHDR.CHNAJd ORDERED CMP, CBCD,INR,CRP,PHOS,A1,LIPID,MG,Order Date: 05/14/24Order Info: [id number] - VITD25 Result Comment: Sherrell min D 25(OH) Status Range Deficiency <20 ng/mL (50nmol/L) Insufficiency 20 - 30 ng/mL (50 - 75 nmol/L) Sufficiency 30 - 100 ng/mL (75 - 250 nmol/L) Toxicity >100 ng/mL (>250 nmol/L) Performed By: #### L 3410.9992, L7000.0750, M7400.3302, L7000.0700, M600.5000 #### [facility] [address] 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 Allergies acetaminophen (From Vicodin) Allergy (Verified 12/22/23 05:44) Other hydrocodone (From Vicodin) Allergy (Verified 12/22/23 05:44) Other Sulfa (Sulfonamide Antibiotics) Allergy (Verified 12/22/23 05:44) Rash Medications ???Medication ???Instructions ???Recorded ???Confirmed ???Type atorvastatin 10 mg tablet 10 mg PO QHS 03/01/15 07/23/24 History hydrochlorothiazide 25 mg tablet 25 mg PO DAILY 03/01/15 07/23/24 History levothyroxine 75 mcg tablet 75 mcg PO DAILY 03/01/15 07/23/24 History metformin 1,000 mg tablet 1,000 mg PO BIDCM 03/01/15 07/23/24 History multivitamin with folic acid 400 1 tab PO DAILY 03/01/15 07/23/24 History mcg tablet (Thera) cetirizine 10 mg capsule (All Day 10 mg PO PRN PRN ALLERGIES 03/15/15 07/23/24 History Allergy (cetirizine)) calcium carbonate 1,000 mg PO DAILY 08/12/18 07/23/24 History hydroxychloroquine 200 mg tablet 200 mg PO BID 08/12/18 07/23/24 History (Plaquenil) escitalopram oxalate 10 mg tablet 10 mg PO DAILY 07/23/19 07/23/24 History blood sugar diagnostic (FreeStyle 08/06/22 07/23/24 History Test strips) cholecalciferol (vitamin D3) 50 50 mcg PO DAILY 08/06/22 07/23/24 History mcg (2,000 unit) capsule empagliflozin 25 mg tablet 25 mg PO DAILY 08/06/22 07/23/24 History (Jardiance) melatonin 5 mg capsule 5 mg PO QHS 08/06/22 07/23/24 History potassium citrate 5 mEq (540 mg) 1,620 mg PO BID 08/06/22 07/23/24 History tablet,extended release (Urocit-K 5) allopurinol 300 mg tablet 100 mg PO DAILY 10/18/22 07/23/24 History atenolol 25 mg tablet 25 mg PO DAILY 10/18/22 07/23/24 History diphenoxylate-atropine 2.5 1 tab PO TID PRN diarrhea 2 months 02/26/24 07/23/24 Rx mg-0.025 mg tablet #180 tabs cholestyramine (with sugar) 4 gram 4 g PO DAILY PRN diarrhea #60 ea 04/09/24 07/23/24 Rx powder for susp in a packet pantoprazole 40 mg tablet,delayed 40 mg PO BID acid reflux 1 month 04/09/24 07/23/24 Rx release #60 tabs magnesium chloride 64 mg 128 mg (2 x 64 mg magnesium) PO 07/04/24 07/23/24 Rx (magnesium chloride) tablet DAILY #120 tabs semaglutide 0.25 mg or 0.5 mg (2 0.5 mg subcut QWEEK 07/23/24 07/23/24 History mg/3 mL) subcutaneous pen injector (Ozempic) Have you fallen in the past year?: No PFSH Medical History Arthritis Cancer Diabetes High cholesterol History of IBS History of irregular heartbeat History of stress test Inflammatory arthritis Kidney stones Non-smoker Post-menopausal Thyroid disease Surgical History History of lingual frenulectomy History of lithotripsy History of partial knee replacement History of ureteroscopy History of wisdom tooth extraction Hx of section Hx of glossectomy Hx of nephrostomy Hx of repair of rotator cuff Family History Brother Leukemia Brother No problems noted. Father No problems noted. Mother Osteoarthritis Daughter No problems noted. Son No problems noted. Daughter No problems noted. Social History Smoking Status: Never smoker alcohol intake: never substance use type: does not use HPI HPI Chief Complaint: f/u Details: ASTRID DUMONT, is a 69 F who presents to the office today for f/u. . Last visit 12.19.22 for discussion of EGD and colonoscopy results. She saw her primary care physician Dr Durham since her endoscopies and he started her on omeprazole 40 mg qam for new diagnosis of Oliva's esophagus. EGD had appearance of long-segment Oliva's which was confirmed on biopsy, negative for dysplasia; significant bile in the stomach; no pathologic diagnosis from duodenal biopsies. Colonoscopy revealed diverticulosis, no pathologic diagnosis from random colon biopsies. Diarrhea is significantly improved with cholestyramine in morning, doesn't seem like it lasts all day, loperamide in pm. treated with vancomycin for C diff. positive for C diff A/B antigen, negative for C diff toxin, positive for PCR. negative test for EPI, neg for Crohn's, neg for celiac 20 yr hx of IBS-D. Viberzi was effective but cost prohibitive. No dietary triggers in particular. No relief with Lotronex. (more content not included)... Normal [facility] Chest PA and Lateralon 07-07 Chest PA and Lateral [facility] [address] [place] [address] Chest PA and Lateral MR#: [id number] Acct: [id number] Name: ASTRID DUMONT JENNIFER Rep #: [id number] : 1955 F 69 From: Telly moe DO PCP: Dr. Duong Durham MD Status: [facility] Study: Chest PA and Lateral Date of Exam: 07/07/24 Exam# [id number] Ordering [place]: [place] [id number] EXAM: XR CHEST, 2 VIEWS CLINICAL INDICATION: bronchitis TECHNIQUE: Frontal and lateral views of the chest. COMPARISON: 10/17/2023 FINDINGS: LUNGS AND PLEURAL SPACES: No significant abnormality. No consolidation or edema. No pneumothorax. No effusion. HEART: No significant abnormality. Cardiac silhouette not enlarged. MEDIASTINUM: Central airways and mediastinal contour are unremarkable. BONES/JOINTS: No significant abnormality. No acute fracture. SOFT TISSUES: No significant abnormality. RAD/Chest PA and Lateral IMPRESSION: No radiographic evidence of acute cardiopulmonary disease. Electronically Signed: Telly Butterfield DO at 21:01 EDT , CC: Dr. Duong Durham MD Automatic Steel Tie Adjuster: Signed Normal [facility] Basic Metabolic Profile (BMP )on 05-14-2024 BUN/CRE 12.2 RATIO Normal 10-20 [facility] Comment on above: Order Comment: Order Date: 05/14/24 Order Info: 06 - BMP Performed By: #### L 500.2500 #### [facility] [address] [place], [address] CA,Total 9.3 mg/dL Normal 8.5-10.1 [facility] Comment on above: Order Comment: Order Date: 05/14/24 Order Info: 666-10 - BMP Performed By: #### L 500.2500 #### [facility] [address] [place], [address] Chloride [Moles/Vol] 105 mmol/L Normal 98-107 [facility] Comment on above: Order Comment: Order Date: 05/14/24 Order Info: 666-10 - BMP Performed By: #### L 500.2500 #### [facility] [address] [place], [address] CO2 [Moles/Vol] 28.0 mmol/L Normal 21.0-32.0 [facility] Comment on above: Order Comment: Order Date: 05/14/24 Order Info: 06 - BMP Performed By: #### L 500.2500 #### [facility] [address] [place], [address] Creatinine [Mass/Vol] 0.98 mg/dL Normal 0.55-1.02 [facility] Comment on above: Order Comment: Order Date: 05/14/24 Order Info: 06 - BMP Result Comment: The validity of the calculated GFR GFRAA in patients over 70 years has not been determined. Clinical correlation is essential. Performed By: #### L 500.2500 #### [facility] [address] [place], [address] EST GFR - AA 72 mL/min Normal >60 [facility] Comment on above: Order Comment: Order Date: 05/14/24 Order Info: 0667- - BMP Result Comment: Afri can Lao GFR Calc Performed By: #### L 500.2500 #### [facility] [address] [place], [place], [address] GAP 7 Normal 5-15 [facility] Comment on above: Order Comment: Order Date: 05/14/24 Order Info: 06 - BMP Performed By: #### L 500.2500 #### [facility] [address] [place], [place], [id number] GFR/1.73 sq M.predicted among non-blacks MDRD (S/P/Bld) [Vol rate/Area] 60 mL/min/{1.73_m2} Normal >60 [facility] Comment on above: Order Comment: Order Date: 05/14/24 Order Info: 06 - BMP Result Comment: Non- GFR Calc Performed By: #### L 500.2500 #### [facility] [address] [place], [place], [address] Glucose [Mass/Vol] 168 mg/dL High 74-106 [facility] Comment on above: Order Comment: Order Date: 05/14/24 Order Info: 0667- - BMP Result Comment: Fast ing Glucose result greater than or equal to 126 mg/dL suggests DIABETES MELLITUS per A.D.A. criteria. Performed By: #### L 500.2500 #### [facility] [address] [place], [place], [address] Potassium [Moles/Vol] 3.3 mmol/L Low 3.5-5.1 [facility] Comment on above: Order Comment: Order Date: 05/14/24 Order Info: 0667- - BMP Performed By: #### L 500.2500 #### [facility] [address] [place], [place], [address] Sodium [Moles/Vol] 140 mmol/L Normal 136-145 [facility] Comment on above: Order Comment: Order Date: 05/14/24 Order Info: 666- - BMP Performed By: #### L 500.2500 #### [facility] [address] [place], [address] Urea nitrogen [Mass/Vol] 12 mg/dL Normal 7-18 [facility] Comment on above: Order Comment: Order Date: 05/14/24 Order Info: 666-10 - BMP Performed By: #### L 500.2500 #### [facility] [address] [place], [address] CBC W/Diff, Automatedon 07-11 15-2023 Absolute Lymph 1.67 X10 3/uL Normal 0.83-4.51 [facility] Comment on above: Order Comment: Order Date: 05/14/24 Order Info: 666-10 - BMP Performed By: #### L 500.2500 #### [facility] [address] [place], [address] Absolute Neut 4.1 X10 3/uL Normal 2.0-7.7 [facility] Comment on above: Order Comment: Order Date: 05/14/24 Order Info: 666-10 - BMP Performed By: #### L 500.2500 #### [facility] [address] [place], [address] Basophils/100 WBC (Bld) 0.3 % Normal 0-1 [facility] Comment on above: Order Comment: Order Date: 05/14/24 Order Info: 666-10 - BMP Performed By: #### L 500.2500 #### [facility] [address] [place], [address] Eosinophils/100 WBC (Bld) 4.9 % Normal 0-5 [facility] Comment on above: Order Comment: Order Date: 05/14/24 Order Info: 666- - BMP Performed By: #### L 500.2500 #### [facility] [address] [place], [address] Erythrocyte distribution width (RBC) [Ratio] 13.2 % Normal 11.6-14.6 [facility] Comment on above: Order Comment: Order Date: 05/14/24 Order Info: 0667-1 - BMP Performed By: #### L 500.2500 #### [facility] [address] [place], [address] Hematocrit (Bld) [Volume fraction] 42.9 % Normal 37-47 [facility] Comment on above: Order Comment: Order Date: 05/14/24 Order Info: 0667 - BMP Performed By: #### L 500.2500 #### [facility] [address] [place], [address] Hemoglobin (Bld) [Mass/Vol] 13.5 g/dL Normal 12.0-15.0 [facility] Comment on above: Order Comment: Order Date: 05/14/24 Order Info: 0667- - BMP Performed By: #### L 500.2500 #### [facility] [facility] [address] [place], [address] IG% 0.300 Normal 0.0-0.9 [facility] Comment on above: Order Comment: Order Date: 05/14/24 Order Info: 0667-1 - BMP Result Comment: IG% - Immature Granulocytes (promyelocytes, myelocytes and metamyelocytes) > 1% indicates that a LEFT SHIFT is Present. Performed By: #### L 500.2500 #### [facility] [address] [place], [address] Lymphocytes/100 WBC (Bld) 24.6 % Normal 19-41 [facility] Comment on above: Order Comment: Order Date: 05/14/24 Order Info: 0667-1 - BMP Performed By: #### L 500.2500 #### [facility] [address] [place], [address] MCH (RBC) [Entitic mass] 27.7 pg Normal 27.0-32.0 [facility] Comment on above: Order Comment: Order Date: 05/14/24 Order Info: 666-10 - BMP Performed By: #### L 500.2500 #### [facility] [address] [place], [address] MCHC (RBC) [Mass/Vol] 31.5 g/dL Low 32-36 [facility] Comment on above: Order Comment: Order Date: 05/14/24 Order Info: 666-10 - BMP Performed By: #### L 500.2500 #### [facility] [address] [place], [address] MCV (RBC) [Entitic vol] 87.9 fL Normal 81-99 [facility] Comment on above: Order Comment: Order Date: 05/14/24 Order Info: 666-10 - BMP Performed By: #### L 500.2500 #### [facility] [address] [place], [address] Monocytes/100 WBC (Bld) 10.3 % High 0-10 [facility] Comment on above: Order Comment: Order Date: 05/14/24 Order Info: 666-10 - BMP Performed By: #### L 500.2500 #### [facility] [address] [place], [address] Neutrophils/100 WBC (Bld) 59.6 % Normal 47-70 [facility] Comment on above: Order Comment: Order Date: 05/14/24 Order Info: 666-10 - BMP Performed By: #### L 500.2500 #### [facility] [address] [place], [address] Nucleated RBC (Bld) [#/Vol] 0 10*3/uL Normal 0-5 [facility] Comment on above: Order Comment: Order Date: 05/14/24 Order Info: 666- - BMP Performed By: #### L 500.2500 #### [facility] [address] [place], [address] Platelet mean volume (Bld) [Entitic vol] 10.3 fL Normal 6.2-12.0 [facility] Comment on above: Order Comment: Order Date: 05/14/24 Order Info: 666-10 - BMP Performed By: #### L 500.2500 #### [facility] [address] [place], [address] Platelets (Bld) [#/Vol] 230 10*3/uL Normal 150-450 [facility] Comment on above: Order Comment: Order Date: 05/14/24 Order Info: 666-10 - BMP Performed By: #### L 500.2500 #### [facility] [address] [place], [address] RBC (Bld) [#/Vol] 4.88 10*6/uL Normal 4.2-5.4 [facility] Comment on above: Order Comment: Order Date: 05/14/24 Order Info: 666-10 - BMP Performed By: #### L 500.2500 #### [facility] [address] [place], [address] RDW SD 41.9 fl Normal 35.1-43.9 [facility] Comment on above: Order Comment: Order Date: 05/14/24 Order Info: 666-10 - BMP Performed By: #### L 500.2500 #### [facility] [address] [place], [address] WBC (Bld) [#/Vol] 6.8 10*3/uL Normal 4.4-11.0 [facility] Comment on above: Order Comment: Order Date: 05/14/24 Order Info: 06 - BMP Performed By: #### L 500.2500 #### [facility] [address] [place], [address] Comprehensive Metabolic Prof ilon 0723-2024 Albumin [Mass/Vol] 3.6 g/dL Normal 3.2-5.0 [facility] Comment on above: Order Comment: Order Date: 05/14/24 Order Info: 0667-1 - BMP Performed By: #### L 500.2500 #### [facility] [address] [place], [address] Albumin/Globulin [Mass ratio] 0.9 {ratio} Normal 0.9-2.4 [facility] Comment on above: Order Comment: Order Date: 05/14/24 Order Info: 0667- - BMP Performed By: #### L 500.2500 #### [facility] [address] [place], [address] ALK P 77 U/L Normal 45-117 [facility] Comment on above: Order Comment: Order Date: 05/14/24 Order Info: 0667-1 - BMP Performed By: #### L 500.2500 #### [facility] [address] [place], [address] ALT [Catalytic activity/Vol] 39 U/L Normal 13-56 [facility] Comment on above: Order Comment: Order Date: 05/14/24 Order Info: 0667-1 - BMP Performed By: #### L 500.2500 #### [facility] [address] [place], [address] AST [Catalytic activity/Vol] 29 U/L Normal 15-37 [facility] Comment on above: Order Comment: Order Date: 05/14/24 Order Info: 0667-1 - BMP Performed By: #### L 500.2500 #### [facility] [address] [place], [address] Bilirubin [Mass/Vol] 0.50 mg/dL Normal 0.20-1.00 [facility] Comment on above: Order Comment: Order Date: 05/14/24 Order Info: 0667-1 - BMP Result Comment: For patients on eltrombopag therapy, use of Dimension [place] TBIL is not recommended. Performed By: #### L 500.2500 #### [facility] [address] [place], [address] BUN/CRE 14.4 RATIO Normal 10-20 [facility] Comment on above: Order Comment: Order Date: 05/14/24 Order Info: 0667 - BMP Performed By: #### L 500.2500 #### [facility] [address] [place], [address] CA,Total 9.3 mg/dL Normal 8.5-10.1 [facility] Comment on above: Order Comment: Order Date: 05/14/24 Order Info: 06 - BMP Performed By: #### L 500.2500 #### [facility] [address] [place], [address] Chloride [Moles/Vol] 102 mmol/L Normal 98-107 [facility] Comment on above: Order Comment: Order Date: 05/14/24 Order Info: 0667 - BMP Performed By: #### L 500.2500 #### [facility] [address] [place], [address] CO2 [Moles/Vol] 28.0 mmol/L Normal 21.0-32.0 [facility] Comment on above: Order Comment: Order Date: 05/14/24 Order Info: 0667- - BMP Performed By: #### L 500.2500 #### [facility] [address] [place], [address] Creatinine [Mass/Vol] 1.04 mg/dL High 0.55-1.02 [facility] Comment on above: Order Comment: Order Date: 05/14/24 Order Info: 0667- - BMP Result Comment: The validity of the calculated GFR GFRAA in patients over 70 years has not been determined. Clinical correlation is essential. Performed By: #### L 500.2500 #### [facility] [address] [place], [address] EST GFR - AA 68 mL/min Normal >60 [facility] Comment on above: Order Comment: Order Date: 05/14/24 Order Info: 0667- - BMP Result Comment: Afri can Lao GFR Calc Performed By: #### L 500.2500 #### [facility] [address] [place], [address] GAP 8 Normal 5-15 [facility] Comment on above: Order Comment: Order Date: 05/14/24 Order Info: 06 - BMP Performed By: #### L 500.2500 #### [facility] [address] [place], [address] GFR/1.73 sq M.predicted among non-blacks MDRD (S/P/Bld) [Vol rate/Area] 56 mL/min/{1.73_m2} Low >60 [facility] Comment on above: Order Comment: Order Date: 05/14/24 Order Info: 0667- - BMP Result Comment: Non- GFR Calc Performed By: #### L 500.2500 #### [facility] [address] [place], [address] Globulin (S) [Mass/Vol] 3.9 g/dL Normal 2.2-4.2 [facility] Comment on above: Order Comment: Order Date: 05/14/24 Order Info: 0667- - BMP Performed By: #### L 500.2500 #### [facility] [address] [place], [address] Glucose [Mass/Vol] 191 mg/dL High 74-106 [facility] Comment on above: Order Comment: Order Date: 05/14/24 Order Info: 0667- - BMP Result Comment: Fast ing Glucose result greater than or equal to 126 mg/dL suggests DIABETES MELLITUS per A.D.A. criteria. Performed By: #### L 500.2500 #### [facility] [address] [place], [address] Potassium [Moles/Vol] 3.3 mmol/L Low 3.5-5.1 [facility] Comment on above: Order Comment: Order Date: 05/14/24 Order Info: 0667- - BMP Performed By: #### L 500.2500 #### [facility] [address] [place], [address] Sodium [Moles/Vol] 138 mmol/L Normal 136-145 [facility] Comment on above: Order Comment: Order Date: 05/14/24 Order Info: 06- - BMP Performed By: #### L 500.2500 #### [facility] [address] [place], [address] T PROT 7.5 g/dL Normal 6.4-8.2 [facility] Comment on above: Order Comment: Order Date: 05/14/24 Order Info: 06- - BMP Performed By: #### L 500.2500 #### [facility] [address] [place], [address] Urea nitrogen [Mass/Vol] 15 mg/dL Normal 7-18 [facility] Comment on above: Order Comment: Order Date: 05/14/24 Order Info: 0667 - BMP Performed By: #### L 500.2500 #### [facility] [address] [place], [address] Hemoglobin A1con 05-04-2024 HbA1c (Bld) [Mass fraction] 6.6 % High 3.8-5.6 [facility] Comment on above: Order Comment: Order Date: 02/25/24Order Info: [id number] - A1C Result Comment: Norm al < 5.7 % Prediabetic 5.7 - 6.4 % Diabetic >or= 6.5 % Please note range changes. Performed By: #### L 3410.9992, L7000.0750, M7400.3302, L7000.0700, M600.5000 #### [facility] [address] [place], [place], [address] Lipid Profileon 05-04-2024 Cholesterol [Mass/Vol] 100 mg/dL Normal 200 [facility] Comment on above: Order Comment: Order Date: 02/25/24Order Info: 07-1 - CMPOrder Info: [id number] - LIPIDOrder Info: [id number] - MGOrder Info: 3016-3 - TSHOrder Info: 3024-7 - T4F Result Comment: <200 mg/dL Desirable 200-240 mg/dL Borderline >240 mg/dL High Risk Performed By: #### L 3410.9992, L7000.0750, M7400.3302, L7000.0700, M600.5000 #### [facility] [address] [place], [place], [address] Cholesterol in HDL [Mass/Vol] 54 mg/dL Normal [facility] Comment on above: Order Comment: Order Date: 02/25/24Order Info: 785- - CMPOrder Info: [id number] - LIPIDOrder Info: [id number] - MGOrder Info: 63 - TSHOrder Info: 3024-7 - T4F Result Comment: The drugs N-Acetylcysteine and Metamizole may falsely depress this assay. Reference Range HDL <40 mg/dL Low HDL Cholesterol HDL >or= 60 mg/dL High HDL Cholesterol Performed By: #### L 3410.9992, L7000.0750, M7400.3302, L7000.0700, M600.5000 #### [facility] [address] [place], [place], [address] Cholesterol in LDL [Mass/Vol] 32 mg/dL Normal 0-130 [facility] Comment on above: Order Comment: Order Date: 02/25/24Order Info: 785-1 - CMPOrder Info: [id number] - LIPIDOrder Info: [id number] - MGOrder Info: [id number] - TSHOrder Info: 3024-7 - T4F Performed By: #### L 3410.9992, L7000.0750, M7400.3302, L7000.0700, M600.5000 #### [facility] [address] [place], [address] Cholesterol in VLDL [Mass/Vol] 14 mg/dL Normal 5-40 [facility] Comment on above: Order Comment: Order Date: 02/25/24Order Info: 86-1 - CMPOrder Info: [id number] - LIPIDOrder Info: [id number] - MGOrder Info: 301-3 - TSHOrder Info: 302-7 - T4F Performed By: #### L 3410.9992, L7000.0750, M7400.3302, L7000.0700, M600.5000 #### [facility] [address] [place], [address] Triglyceride [Mass/Vol] 69 mg/dL Normal [facility] Comment on above: Order Comment: Order Date: 02/25/24Order Info: 785- - CMPOrder Info: [id number] - LIPIDOrder Info: [id number] - MGOrder Info: 3 - TSHOrder Info: 302-7 - T4F Result Comment: The drugs N-Acetylcysteine and Metamizole may falsely depress this assay. Serum Triglycerides Reference Interval Normal <150 mg/dL Borderline high 150 - 199 mg/dL High 200 - 499 mg/dL Very High > or = 500 mg/dL Performed By: #### L 3410.9992, L7000.0750, M7400.3302, L7000.0700, M600.5000 #### [facility] [address] [place], [address] Magnesiumon 05-04-2024 Magnesium [Mass/Vol] 1.5 mg/dL Low 1.6-2.6 [facility] Comment on above: Order Comment: Order Date: 02/25/24Order Info: 07-1 - CMPOrder Info: [id number] - LIPIDOrder Info: [id number] - MGOrder Info: [id number] - TSHOrder Info: 3024-7 - T4F Performed By: #### L 3410.9992, L7000.0750, M7400.3302, L7000.0700, M600.5000 #### [facility] [address] [place], [address] Microalb:Creat Ratio,Random URon 05-04-2024 Creatinine [Mass/Vol] 136.00 mg/dL Normal NO RAN GE EST. [facility] Comment on above: Order Comment: Order Date: 05/14/24 Order Info: 0667-1 - BMP Performed By: #### L 500.2500 #### [facility] [address] [place], [address] MALB:CRE 10.4 mg/g CRE Normal <30 mg/g CRE [facility] Comment on above: Order Comment: Order Date: 05/14/24 Order Info: 0667- - BMP Performed By: #### L 500.2500 #### [facility] [address] [place], [address] MICROALBUMIN,UR 14.1 mg/L Normal NO RANGE EST. [facility] Comment on above: Order Comment: Order Date: 05/14/24 Order Info: 0667- - BMP Performed By: #### L 500.2500 #### [facility] [address] [place], [address] T4 Free Directon 05-04-2024 T4 FREE DIRECT 1.15 ng/dL Normal 0.76-1.46 [facility] Comment on above: Order Comment: Order Date: 02/25/24Order Info: 0786-1 - CMPOrder Info: [id number] - LIPIDOrder Info: [id number] - MGOrder Info: [id number] - TSHOrder Info: [id number] - T4F Performed By: #### L 3410.9992, L7000.0750, M7400.3302, L7000.0700, M600.5000 #### [facility] [address] [place], [address] Thyroid Stim Hormone (TSH)on 05-04-2024 TSH 1.68 uIU/mL Normal 0.358-3.74 [facility] Comment on above: Order Comment: Order Date: 02/25/24Order Info: 0786-1 - CMPOrder Info: [id number] - LIPIDOrder Info: [id number] - MGOrder Info: [id number] - TSHOrder Info: 3024-7 - T4F Performed By: #### L 3410.9992, L7000.0750, M7400.3302, L7000.0700, M600.5000 #### [facility] [address] [place], [address] Urinalysis, Completeon 05-04 BACTERIA RARE Normal None Seen [facility] Comment on above: Order Comment: 00620 4 STOOL CULTURE Performed By: #### L 3410.9992, L7000.0750, M7400.3302, L7000.0700, M600.5000 #### [facility] [address] [place], [address] EPI,SQUAMOUS 0-5 SEEN Normal 5-10 [facility] Comment on above: Order Comment: [id number] 4 STOOL CULTURE Performed By: #### L 3410.9992, L7000.0750, M7400.3302, L7000.0700, M600.5000 #### [facility] [address] [place], [address] WBC 10-25 SEEN Normal 0-5 [facility] Comment on above: Order Comment: 76425 4 STOOL CULTURE Performed By: #### L 3410.9992, L7000.0750, M7400.3302, L7000.0700, M600.5000 #### [facility] [address] [place], [address] Mucus Ql (Urine sed) 0 SEEN Normal [facility] Comment on above: Order Comment: 48869 4 STOOL CULTURE Performed By: #### L 3410.9992, L7000.0750, M7400.3302, L7000.0700, M600.5000 #### [facility] [address] [place], [address] RBC 0 SEEN Normal 0-5 [facility] Comment on above: Order Comment: 60095 4 STOOL CULTURE Performed By: #### L 3410.9992, L7000.0750, M7400.3302, L7000.0700, M600.5000 #### [facility] [address] [place], [address] Vitamin D,25 Hydroxyon 05-04 Vitamin D 25-OH 67.6 ng/mL Normal [facility] Comment on above: Order Comment: Order Date: 02/25/24Order Info: [id number] - VITD25 Result Comment: Sherrell min D 25(OH) Status Range Deficiency <20 ng/mL (50nmol/L) Insufficiency 20 - 30 ng/mL (50 - 75 nmol/L) Sufficiency 30 - 100 ng/mL (75 - 250 nmol/L) Toxicity >100 ng/mL (>250 nmol/L) Performed By: #### L 3410.9992, L7000.0750, M7400.3302, L7000.0700, M600.5000 #### [facility] [address] [place], [address] Absolute lymphocyte countOrd ered By: Giovanni Hidalgo on 01-20-2024 Lymphocytes Auto (Unsp spec) [#/Vol] 1.31 10*3/uL 0.83-4.51 [facility] Automated lymphocyte count a s percentage of total leukocytesOrdered By: Giovanni Hidalgo on 01-20-2024 Lymphocytes/100 WBC Auto (Unsp spec) 26.9 % 19-41 [facility] Basophil percentageOrdered B y: Duong Durham on 01-20-2024 Basophil percentage 0 SEEN /hpf 0-5 [facility] Basophil percentageOrdered B y: Giovanni Hidalgo on 01-20-2024 Basophils/100 WBC (Bld) 1.2 % 0-1 [facility] Bilirubin [Mass/Vol] 0.50 mg/dL 0.20-1.00 [facility] Comment on above: For patients on eltr ombopag therapy, use of Dimension [place] TBIL is not recommended. Chloride [Moles/Vol] 105 mmol/L 98-107 [facility] Cholesterol [Mass/Vol] 107 mg/dL <200 [facility] Comment on above: <200 mg/dL Desirable 200-240 mg/dL Borderline >240 mg/dL High Risk Eosinophils/100 WBC (Bld) 2.1 % 0-5 [facility] Glucose [Mass/Vol] 170 mg/dL 74-106 [facility] Comment on above: Fasting Glucose resu lt greater than or equal to 126 mg/dL suggests DIABETES MELLITUS per A.D.A. criteria. Hemoglobin (Bld) [Mass/Vol] 13.5 g/dL 12.0-15.0 [facility] LDH [Catalytic activity/Vol] 185 U/L 84-246 [facility] Monocytes/100 WBC (Bld) 9.2 % 0-10 [facility] Neutrophils (Bld) [#/Vol] 2.9 10*3/uL 2.0-7.7 [facility] Neutrophils/100 WBC (Bld) 60.4 % 47-70 [facility] Potassium [Moles/Vol] 3.9 mmol/L 3.5-5.1 [facility] Protein [Mass/Vol] 7.7 g/dL 6.4-8.2 [facility] Sodium [Moles/Vol] 140 mmol/L 136-145 [facility] Triglyceride [Mass/Vol] 82 mg/dL <199 [facility] Comment on above: The drugs N-Acetylcy steine and Metamizole may falsely depress this assay.Serum Triglycerides Reference Interval Normal <150 mg/dL Borderline high 150 - 199 mg/dL High 200 - 499 mg/dL Very High > or = 500 mg/dL WBC (Bld) [#/Vol] 4.9 10*3/uL 4.4-11.0 [facility] Bilirubin Test strip Ql (U)O rdered By: Duong Durham on 01-20-2024 Bilirubin Ql (U) Negative Negative [facility] Determination of erythrocyte mean corpuscular volume (MCV)Ordered By: Giovanni Hidalgo on 01-20-2024 MCV (RBC) [Entitic vol] 87.7 fL 81-99 [facility] Erythrocyte distribution wid th ratioOrdered By: Giovanni Hidalgo on 01-20-2024 Erythrocyte distribution width (RBC) [Ratio] 13.4 % 11.6-14.6 [facility] Erythrocyte distribution wid th standard deviationOrdered By: Giovanni Hidalgo on 01-20-2024 Erythrocyte distribution width (RBC) [Entitic vol] 42.6 fL 35.1-43.9 [facility] HIV 1 and HIV-2 antibody ass ay with HIV-1 p24 antigen detectionOrdered By: Giovanni Hidalgo on 01-20-2024 HIV 1+2 Ab+HIV1 p24 Ag IA Ql Non-Reactive Nonreactive [facility] Hematocrit Auto (Bld) [Volum e fraction]Ordered By: Giovanni Hidalgo on 01-20-2024 Hematocrit (Bld) [Volume fraction] 42.8 % 37-47 [facility] Immature granulocytes/100 WB C Auto (Bld)Ordered By: Giovanni Hidalgo on 01-20-2024 Immature granulocytes/100 WBC (Bld) 0.200 % 0.0-0.9 [facility] Comment on above: IG% - Immature Granu locytes (promyelocytes, myelocytes and metamyelocytes) > 1% indicates that a LEFT SHIFT is Present. Iron measurement (mass/mass) Ordered By: Giovanni Hidalgo on 01-20-2024 Iron (Unsp spec) [Mass/Mass] 76 ug/dL 50-170 [facility] Ketones Test strip Ql (U)Ord ered By: Duong Durham on 01-20-2024 Ketones Ql (U) Negative Negative [facility] - Chemistry and C hemistry - challengeOrdered By: Duong Durham on 01-20-2024 Magnesium [Mass/Vol] 1.5 mg/dL 1.6-2.6 [facility] - Chemistry and C hemistry - challengeOrdered By: Giovanni Hidalgo on 01-20-2024 Albumin/Globulin [Mass ratio] 0.9 {ratio} 0.9-2.4 [facility] ALP [Catalytic activity/Vol] 68 U/L 45-117 [facility] ALT [Catalytic activity/Vol] 51 U/L 13-56 [facility] Cholesterol in HDL [Mass/Vol] 55 mg/dL >40 [facility] Comment on above: The drugs N-Acetylcy steine and Metamizole may falsely depress this assay. Reference Range HDL <40 mg/dL Low HDL Cholesterol HDL >or= 60 mg/dL High HDL Cholesterol Cholesterol in LDL [Mass/Vol] 36 mg/dL 0-130 [facility] CO2 [Moles/Vol] 26.0 mmol/L 21.0-32.0 [facility] Ferritin [Mass/Vol] 67 ng/mL 8-252 [facility] Globulin (S) [Mass/Vol] 4.0 g/dL 2.2-4.2 [facility] Urea nitrogen/Creatinine [Mass ratio] 18.2 mg/mg 10-20 [facility] - CoagulationOrde red By: Giovanni Hidalgo on 01-20-2024 INR Coag (Bld) [Relative time] 1.0 {INR} [facility] PT Coag (PPP) [Time] 13.6 s 11.7-14.9 [facility] - Hematology and Cell countsOrdered By: Giovanni Hidalgo on 01-20-2024 MCH (RBC) [Entitic mass] 27.7 pg 27.0-32.0 [facility] MCHC (RBC) [Mass/Vol] 31.5 g/dL 32-36 [facility] Nucleated RBC/100 WBC (Bld) [Ratio] 0 % 0-5 [facility] Platelet mean volume (Bld) [Entitic vol] 10.0 fL 6.2-12.0 [facility] Platelets (Bld) [#/Vol] 239 10*3/uL 150-450 [facility] Mucus LM Ql (Urine sed)Order ed By: Duong Durham on 01-20-2024 Mucus Ql (Urine sed) 0 SEEN /hpf [facility] Nitrite Test strip Ql (U)Ord ered By: Duong Durham on 01-20-2024 Nitrite Ql (U) Negative Negative [facility] No Panel InformationOrdered By: Duong Durham on 01-20-2024 Urine RBC 0-5 SEEN /hpf 0-5 [facility] Vitamin D 25-Hydroxy 52.1 ng/mL [facility] Comment on above: Vitamin D 25(OH) Sta tus Range Deficiency <20 ng/mL (50nmol/L) Insufficiency 20 - 30 ng/mL (50 - 75 nmol/L) Sufficiency 30 - 100 ng/mL (75 - 250 nmol/L) Toxicity >100 ng/mL (>250 nmol/L) No Panel InformationOrdered By: Giovanni Hidalgo on 01-20-2024 Anti-Nuclear Antibody Screen Negative Negative [facility] Comment on above: Performed at: [facility] [place] [id number] Director: Yang Tee PhD, Phone: [phone] Atypical p-ANCA 1:320 titer Neg:<1:20 [facility] Comment on above: The atypical pANCA p attern has been observed in asignificant percentage of patients with ulcerative colitis,primary sclerosing cholangitis and autoimmune hepatitis. C-Reactive Protein Extended Range < 2.90 mg/L 0.0-3.0 [facility] Comment on above: C-Reactive Protein ( CRP) provides useful information for thediagnosis, therapy and monitoring of inflammatory processesand associated diseases. For the evaluation of Relative Riskfor Cardiovascular Disease, a High Sensitivity CRP (HSCRP)should be ordered. Centromere B Antibody Not Reportable [facility] Ceruloplasmin 25.5 mg/dL 19.0-39.0 [facility] Dar-Vance Virus Capsid Ag IgG Ab > 600.0 U/mL 0.0-17.9 [facility] Comment on above: Negative <18.0 Equiv ocal 18.0 - 21.9 Positive >21.9 Estimated GFR (MDRD) Amer 82 mL/min >60 [facility] Comment on above: GFR Calc Estimated GFR (MDRD) Non-Af Amer 68 mL/min >60 [facility] Comment on above: Non- GFR Calc GUDELIA-1 Antibody Not Reportable [facility] CONTENT DEVELOPMENT SPECIALIST Antibody Not Reportable [facility] SM Antibody Not Reportable [facility] SS-A/Ro IgG Antibody Not Reportable [facility] SS-B/La IgG Antibody Not Reportable [facility] Total Iron Binding Capacity 353 ug/dL 250-450 [facility] Tumor Marker Alpha Fetoprotein < 1.8 ng/mL 0.0-9.2 [facility] Comment on above: [facility] El ectrochemiluminescence Immunoassay(ECLIA)Values obtained with different assay methods or kits cannotbe used interchangeably. Results cannot be interpreted asabsolute evidence of the presence or absence of malignantdisease.This test is not interpretable in females. VLDL Cholesterol 16 mg/dL 5-40 [facility] Protein Test strip Ql (U)Ord ered By: Duong Durham on 01-20-2024 Protein Ql (U) 15 mg/dl Negative [facility] RBC Auto (Bld) [#/Vol]Ordere d By: Giovanni Hidalgo on 01-20-2024 RBC (Bld) [#/Vol] 4.88 10*6/uL 4.2-5.4 [facility] Serum DNA double strand anti body assay (units/volume)Ordered By: Giovanni Hidalgo on 01-20-2024 DNA double strand Ab Qn (S) Not Reportable [facility] Serum Dar Vance virus cap triston IgM antibody assay (units/volume)Ordered By: Giovanni Hidalgo on 01-20-2024 EBV capsid IgM Qn (S) [arb'U]/mL 0.0-35.9 [facility] Comment on above: Negative <36.0 Equiv ocal 36.0 - 43.9 Positive >43.9 Serum Dar Vance virus nuc lear IgG antibody assay (units/volume)Ordered By: Giovanni Hidalgo on 01-20-2024 EBV nuclear IgG Qn (S) 103.0 U/mL 0.0-17.9 [facility] Comment on above: Negative <18.0 Equiv ocal 18.0 - 21.9 Positive >21.9 Serum Scl-70 antibody assay (units/volume)Ordered By: Giovanni Hidalgo on 01-20-2024 SCL-70 extractable nuclear Ab Qn (S) Not Reportable [facility] Serum classic neutrophil cyt oplasmic antibody assay (units/volume)Ordered By: Giovanni Hidalgo on 01-20-2024 Neutrophil cytoplasmic Ab.classic Qn (S) <1:20 titer Neg:<1:20 [facility] Serum mitochondria antibody detectionOrdered By: Giovanni Hidalgo on 01-20-2024 Mitochondria Ab Ql (S) <20.0 Units 0.0-20.0 [facility] Comment on above: Negative 0.0 - 20.0 Equivocal 20.1 - 24.9 Positive >24.9Mitochondrial (M2) Antibodies are found in 90-96% ofpatients with primary biliary cirrhosis. Serum or plasma actin IgG an tibody assay (units/volume)Ordered By: Giovanni Hidalgo on 01-20-2024 Actin IgG Qn 13 Units 0-19 [facility] Comment on above: Negative 0 - 19 Weak positive 20 - 30 Moderate to strong positive >30 Actin Antibodies are found in 52-85% of patients with autoimmune hepatitis or chronic active hepatitis and in 22% of patients with primary biliary cirrhosis. Serum or plasma angiotensin converting enzyme measurement (enzymatic activity/volume)Ordered By: Giovanni Hidalgo on 01-20-2024 Angiotensin converting enzyme [Catalytic activity/Vol] 58 U/L 14-82 [facility] Serum or plasma calcium jackson urement (mass/volume)Ordered By: Giovanni Hidalgo on 01-20-2024 Calcium [Mass/Vol] 9.5 mg/dL 8.5-10.1 [facility] Serum or plasma creatinine m easurement (mass/volume)Ordered By: Giovanni Hidalgo on 01-20-2024 Creatinine [Mass/Vol] 0.88 mg/dL 0.55-1.02 [facility] Comment on above: The validity of the calculated GFR & GFRAA in patients over 70 years has not been determined. Clinical correlation is essential. Serum or plasma iron saturat ion measurement (mass fraction)Ordered By: Giovanni Hidalgo on 01-20-2024 Iron saturation [Mass fraction] 21.5 % 15.0-55.0 [facility] Serum or plasma thyroid stim ulating hormone (TSH) measurement (units/volume)Ordered By: Duong Durham on 01-20-2024 TSH Qn 1.61 uIU/mL 0.358-3.74 [facility] Serum or plasma urea nitroge n measurement (mass/volume)Ordered By: Giovanni Hidalgo on 01-20-2024 Urea nitrogen [Mass/Vol] 16 mg/dL 7-18 [facility] Serum perinuclear neutrophil cytoplasmic antibody titer by immunofluorescenceOrdered By: Giovanni Hidalgo on 01-20-2024 Neutrophil cytoplasmic Ab.perinuclear IF (S) [Titer] <1:20 titer Neg:<1:20 [facility] Comment on above: The presence of posi tive fluorescence exhibiting P-ANCA orC-ANCA patterns alone is not specific for the diagnosis ofWegener's Granulomatosis (WG) or microscopic polyangiitis.Decisions about treatment should not be based solely onANCA IFA results. The [employer] ANCA Group Consensusrecommends follow up testing of positive sera with both KS-3 and MPO-ANCA enzyme immunoassays. As many as 5% serumsamples are positive only by EIA. Ref. AM J Clin Darsgh5171;111:507-513. Squamous epithelial cells de tection in urine sediment by light microscopyOrdered By: Duong Durham on 01-20-2024 Epithelial cells.squamous LM Ql (Urine sed) 0 SEEN /hpf 5-10 [facility] Thin prep Papanicolaou smear with manual screeningOrdered By: Duong Durham on 01-20-2024 Thin prep Papanicolaou smear with manual screening 1.08 ng/dL 0.76-1.46 [facility] Thin prep Papanicolaou smear with manual screeningOrdered By: Giovanni Hidalgo on 01-20-2024 Thin prep Papanicolaou smear with manual screening 3.7 g/dL 3.2-5.0 [facility] Thin prep Papanicolaou smear with manual screening 38 U/L 15-37 [facility] Thin prep Papanicolaou smear with manual screening 9 5-15 [facility] Thin prep Papanicolaou smear with manual screening Comment . [facility] Comment on above: EBV Interpretation C Pattie: Antibody Present + Antibody Absent -Interpretation VCA-IgM VCA-IgG EBNA-IgGNo previous infection/ - - -SusceptiblePrimary infection (new + + -or recent)Past Infection +or- + +See comment below* + - -*Results indicate infection with EBV at some time however cannot predict the timing of the infection since antibodies to EBNA usually develop after primary infection or, alternatively, approximately 5-10% of patients with EBV never develop antibodies to EBNA. Thin prep Papanicolaou smear with manual screening 93 ug/dL 80-158 [facility] Comment on above: Detection Limit = 5P erformed at: - [facility] [id number] [place], [place] [id number] Director: Yang Tee PhD, Phone: [phone] at: [facility] [address] [id number] Director: King Sofia MD, Phone: [phone] Urine blood detectionOrdered By: Duong Durham on 01-20-2024 RBC Ql (U) 10 /ul Negative [facility] Urine clarityOrdered By: Marshal Durham on 01-20-2024 Clarity (U) Clear Clear [facility] Urine color determinationOrd ered By: Duong Durham on 01-20-2024 Color (U) Yellow Yellow [facility] Urine glucose detectionOrder ed By: Duong Durham on 01-20-2024 Glucose Ql (U) 1000 mg/dl Normal [facility] Urine leukocyte esterase det ection by dipstickOrdered By: Duong Durham on 01-20-2024 Leukocyte esterase Test strip Ql (U) Negative Negative [facility] Urine pHOrdered By: Duong sykes on 01-20-2024 pH (U) 7.0 [pH] 5.0 - 8.0 [facility] Urine sediment bacteria coun t by microscopy (number/high power field)Ordered By: Duong Durham on 01-20-2024 Bacteria LM.HPF (Urine sed) [#/Area] 0 /[HPF] None Seen [facility] Urine specific gravity measu rementOrdered By: Duong Durham on 01-20-2024 Specific gravity (U) [Rel density] 1.010 1.002-1.030 [facility] Urine urobilinogen measureme ntOrdered By: Duong Durham on 01-20-2024 Urobilinogen Ql (U) Normal mg/dl Normal [facility] Whole blood hemoglobin A1c/t otal hemoglobin ratio (mass fraction)Ordered By: Duong Durham on 01-20-2024 HbA1c (Bld) [Mass fraction] 7.2 % 3.8-5.6 [facility] Comment on above: Normal < 5.7 % Predi abetic 5.7 - 6.4 % Diabetic >or= 6.5 % Please note range changes. Thin prep Papanicolaou smear with manual screeningOrdered By: Abdi Friend on 12-22-2023 Thin prep Papanicolaou smear with manual screening 206 mg/dL 74-106 [facility] Comment on above: MANAGEMENT OF PATIEN T CARE PER NURSING PROTOCOL Absolute lymphocyte countOrd ered By: Duong Durham on 10-21-2023 Lymphocytes Auto (Unsp spec) [#/Vol] 1.61 10*3/uL 0.83-4.51 [facility] Basophil percentageOrdered B y: Duong Durham on 10-21-2023 Basophils/100 WBC (Bld) 1.3 % 0-1 [facility] Bilirubin [Mass/Vol] 0.40 mg/dL 0.20-1.00 [facility] Comment on above: For patients on eltr ombopag therapy, use of Dimension [place] TBIL is not recommended. Chloride [Moles/Vol] 104 mmol/L 98-107 [facility] Cholesterol [Mass/Vol] 127 mg/dL <200 [facility] Comment on above: <200 mg/dL Desirable 200-240 mg/dL Borderline >240 mg/dL High Risk Eosinophils/100 WBC (Bld) 2.5 % 0-5 [facility] Glucose [Mass/Vol] 206 mg/dL 74-106 [facility] Comment on above: Glucose result great er than or equal to 200 mg/dLsuggests DIABETES MELLITUS per A.D.A. criteria. Neutrophils (Bld) [#/Vol] 3.2 10*3/uL 2.0-7.7 [facility] Neutrophils/100 WBC (Bld) 58.0 % 47-70 [facility] Potassium [Moles/Vol] 4.0 mmol/L 3.5-5.1 [facility] Protein [Mass/Vol] 7.7 g/dL 6.4-8.2 [facility] Sodium [Moles/Vol] 140 mmol/L 136-145 [facility] Triglyceride [Mass/Vol] 107 mg/dL <199 [facility] Comment on above: The drugs N-Acetylcy steine and Metamizole may falsely depress this assay.Serum Triglycerides Reference Interval Normal <150 mg/dL Borderline high 150 - 199 mg/dL High 200 - 499 mg/dL Very High > or = 500 mg/dL WBC (Bld) [#/Vol] 5.5 10*3/uL 4.4-11.0 [facility] Blood erythrocytes count (nu mber/volume)Ordered By: Duong Durham on 10-21-2023 RBC (Bld) [#/Vol] 4.81 10*6/uL 4.2-5.4 [facility] Blood hemoglobin measurement (mass/volume)Ordered By: Duong Durham on 10-21-2023 Hemoglobin (Bld) [Mass/Vol] 13.5 g/dL 12.0-15.0 [facility] Blood lymphocytes/100 leukoc ytesOrdered By: Duong Durham on 10-21-2023 Lymphocytes/100 WBC (Bld) 29.1 % 19-41 [facility] Blood monocytes/100 leukocyt esOrdered By: Duong Durham on 10-21-2023 Monocytes/100 WBC (Bld) 8.7 % 0-10 [facility] Blood platelet mean volumeOr dered By: Duong Durham on 10-21-2023 Platelet mean volume (Bld) [Entitic vol] 10.0 fL 6.2-12.0 [facility] Determination of erythrocyte mean corpuscular volume (MCV)Ordered By: Duong Durham on 10-21-2023 MCV (RBC) [Entitic vol] 88.8 fL 81-99 [facility] Hematocrit Auto (Bld) [Volum e fraction]Ordered By: Duong Durham on 10-21-2023 Hematocrit (Bld) [Volume fraction] 42.7 % 37-47 [facility] Laboratory - Chemistry and C hemistry - challengeOrdered By: Duong Durham on 10-21-2023 ALP [Catalytic activity/Vol] 83 U/L 45-117 [facility] ALT [Catalytic activity/Vol] 52 U/L 13-56 [facility] CO2 [Moles/Vol] 30.0 mmol/L 21.0-32.0 [facility] Free T4 [Mass/Vol] 1.05 ng/dL 0.76-1.46 [facility] Globulin (S) [Mass/Vol] 3.9 g/dL 2.2-4.2 [facility] Magnesium [Mass/Vol] 1.6 mg/dL 1.6-2.6 [facility] Urea nitrogen/Creatinine [Mass ratio] 17.1 mg/mg 10-20 [facility] Laboratory - Hematology and Cell countsOrdered By: Duong Durham on 10-21-2023 Erythrocyte distribution width (RBC) [Entitic vol] 43.8 fL 35.1-43.9 [facility] Erythrocyte distribution width (RBC) [Ratio] 13.4 % 11.6-14.6 [facility] Immature granulocytes/100 WBC (Bld) 0.400 % 0.0-0.9 [facility] Comment on above: IG% - Immature Granu locytes (promyelocytes, myelocytes and metamyelocytes) > 1% indicates that a LEFT SHIFT is Present. MCH (RBC) [Entitic mass] 28.1 pg 27.0-32.0 [facility] Nucleated RBC/100 WBC (Bld) [Ratio] 0 % 0-5 [facility] MCHC Auto (RBC) [Mass/Vol]Or dered By: Duong Durham on 10-21-2023 MCHC (RBC) [Mass/Vol] 31.6 g/dL 32-36 [facility] No Panel InformationOrdered By: Duong Durham on 10-21-2023 Estimated GFR (MDRD) Amer 83 mL/min >60 [facility] Comment on above: GFR Calc Estimated GFR (MDRD) Non-Af Amer 68 mL/min >60 [facility] Comment on above: Non- GFR Calc Thyroid Stimulating Hormone (TSH) 2.69 uIU/mL 0.358-3.74 [facility] Urine Microalbumin/Creatinine Ratio 10.1 mg/g CRE <30 [facility] Vitamin D 25-Hydroxy 58.5 ng/mL [facility] Comment on above: Vitamin D 25(OH) Sta tus Range Deficiency <20 ng/mL (50nmol/L) Insufficiency 20 - 30 ng/mL (50 - 75 nmol/L) Sufficiency 30 - 100 ng/mL (75 - 250 nmol/L) Toxicity >100 ng/mL (>250 nmol/L) Platelets bldOrdered By: Marshal Durham on 10-21-2023 Platelets (Bld) [#/Vol] 230 10*3/uL 150-450 [facility] Serum or plasma albumin jackson urement (mass/volume)Ordered By: Duong Durham on 10-21-2023 Albumin [Mass/Vol] 3.8 g/dL 3.2-5.0 [facility] Serum or plasma albumin/glob ulin mass ratioOrdered By: Duong Durham on 10-21-2023 Albumin/Globulin [Mass ratio] 1.0 {ratio} 0.9-2.4 [facility] Serum or plasma calcium jackson urement (mass/volume)Ordered By: Duong Durham on 10-21-2023 Calcium [Mass/Vol] 9.3 mg/dL 8.5-10.1 [facility] Serum or plasma cholesterol in HDL measurement (mass/volume)Ordered By: Duong Durham on 10-21-2023 Cholesterol in HDL [Mass/Vol] 56 mg/dL >40 [facility] Comment on above: The drugs N-Acetylcy steine and Metamizole may falsely depress this assay. Reference Range HDL <40 mg/dL Low HDL Cholesterol HDL >or= 60 mg/dL High HDL Cholesterol Serum or plasma cholesterol in VLDL measurement (mass/volume)Ordered By: Duong Durham on 10-21-2023 Cholesterol in VLDL [Mass/Vol] 21 mg/dL 5-40 [facility] Serum or plasma creatinine m easurement (mass/volume)Ordered By: Duong Durham on 10-21-2023 Creatinine [Mass/Vol] 0.88 mg/dL 0.55-1.02 [facility] Comment on above: The validity of the calculated GFR & GFRAA in patients over 70 years has not been determined. Clinical correlation is essential. Serum or plasma low density lipoprotein (LDL) cholesterol measurement (mass/volume)Ordered By: Duong Durham on 10-21-2023 Cholesterol in LDL [Mass/Vol] 50 mg/dL 0-130 [facility] Serum or plasma urea nitroge n measurement (mass/volume)Ordered By: Duong Durham on 10-21-2023 Urea nitrogen [Mass/Vol] 15 mg/dL 7-18 [facility] Thin prep Papanicolaou smear with manual screeningOrdered By: Duong Durham on 10-21-2023 Thin prep Papanicolaou smear with manual screening 39 U/L 15-37 [facility] Thin prep Papanicolaou smear with manual screening 6 5-15 [facility] Thin prep Papanicolaou smear with manual screening 7.4 mg/L NO RANGE EST. [facility] Urine creatinine measurement (mass/volume)Ordered By: Duong Durham on 10-21-2023 Creatinine (U) [Mass/Vol] 73.30 mg/dL NO RANGE EST. [facility] Whole blood hemoglobin A1c/t otal hemoglobin ratio (mass fraction)Ordered By: Duong Durham on 10-21-2023 HbA1c (Bld) [Mass fraction] 7.0 % 3.8-5.6 [facility] Comment on above: Normal < 5.7 % Predi abetic 5.7 - 6.4 % Diabetic >or= 6.5 % Please note range changes. Absolute lymphocyte countOrd ered By: Duong Durham on 06-27-2023 Lymphocytes Auto (Unsp spec) [#/Vol] 0.99 10*3/uL 0.83-4.51 [facility] Basophil percentageOrdered B y: Duong Durham on 06-27-2023 Basophils/100 WBC (Bld) 0.8 % 0-1 [facility] Bilirubin [Mass/Vol] 0.50 mg/dL 0.20-1.00 [facility] Comment on above: For patients on eltr ombopag therapy, use of Dimension [place] TBIL is not recommended. Chloride [Moles/Vol] 103 mmol/L 98-107 [facility] Cholesterol [Mass/Vol] 114 mg/dL <200 [facility] Comment on above: <200 mg/dL Desirable 200-240 mg/dL Borderline >240 mg/dL High Risk Eosinophils/100 WBC (Bld) 2.6 % 0-5 [facility] Glucose [Mass/Vol] 207 mg/dL 74-106 [facility] Comment on above: Glucose result great er than or equal to 200 mg/dLsuggests DIABETES MELLITUS per A.D.A. criteria. Neutrophils (Bld) [#/Vol] 3.5 10*3/uL 2.0-7.7 [facility] Neutrophils/100 WBC (Bld) 66.4 % 47-70 [facility] Potassium [Moles/Vol] 3.6 mmol/L 3.5-5.1 [facility] Protein [Mass/Vol] 7.7 g/dL 6.4-8.2 [facility] Sodium [Moles/Vol] 138 mmol/L 136-145 [facility] Triglyceride [Mass/Vol] 90 mg/dL <199 [facility] Comment on above: The drugs N-Acetylcy steine and Metamizole may falsely depress this assay.Serum Triglycerides Reference Interval Normal <150 mg/dL Borderline high 150 - 199 mg/dL High 200 - 499 mg/dL Very High > or = 500 mg/dL WBC (Bld) [#/Vol] 5.3 10*3/uL 4.4-11.0 [facility] Blood erythrocytes count (nu mber/volume)Ordered By: Duong Durham on 06-27-2023 RBC (Bld) [#/Vol] 4.74 10*6/uL 4.2-5.4 [facility] Blood hemoglobin measurement (mass/volume)Ordered By: Duong Durham on 06-27-2023 Hemoglobin (Bld) [Mass/Vol] 13.5 g/dL 12.0-15.0 [facility] Blood lymphocytes/100 leukoc ytesOrdered By: Duong Durham on 06-27-2023 Lymphocytes/100 WBC (Bld) 18.7 % 19-41 [facility] Blood monocytes/100 leukocyt esOrdered By: Duong Durham on 06-27-2023 Monocytes/100 WBC (Bld) 11.1 % 0-10 [facility] Blood platelet mean volumeOr dered By: Duong Durham on 06-27-2023 Platelet mean volume (Bld) [Entitic vol] 10.2 fL 6.2-12.0 [facility] Determination of erythrocyte mean corpuscular volume (MCV)Ordered By: Duong Durham on 06-27-2023 MCV (RBC) [Entitic vol] 91.1 fL 81-99 [facility] Hematocrit Auto (Bld) [Volum e fraction]Ordered By: Duong Durham on 06-27-2023 Hematocrit (Bld) [Volume fraction] 43.2 % 37-47 [facility] Laboratory - Chemistry and C hemistry - challengeOrdered By: Duong Durham on 06-27-2023 ALP [Catalytic activity/Vol] 76 U/L 45-117 [facility] ALT [Catalytic activity/Vol] 59 U/L 13-56 [facility] CO2 [Moles/Vol] 27.0 mmol/L 21.0-32.0 [facility] Free T4 [Mass/Vol] 1.21 ng/dL 0.76-1.46 [facility] Globulin (S) [Mass/Vol] 3.8 g/dL 2.2-4.2 [facility] Magnesium [Mass/Vol] 1.5 mg/dL 1.6-2.6 [facility] Urea nitrogen/Creatinine [Mass ratio] 17.3 mg/mg 10-20 [facility] Laboratory - Hematology and Cell countsOrdered By: Duong Durham on 06-27-2023 Erythrocyte distribution width (RBC) [Entitic vol] 44.6 fL 35.1-43.9 [facility] Erythrocyte distribution width (RBC) [Ratio] 13.3 % 11.6-14.6 [facility] Immature granulocytes/100 WBC (Bld) 0.400 % 0.0-0.9 [facility] Comment on above: IG% - Immature Granu locytes (promyelocytes, myelocytes and metamyelocytes) > 1% indicates that a LEFT SHIFT is Present. MCH (RBC) [Entitic mass] 28.5 pg 27.0-32.0 [facility] Nucleated RBC/100 WBC (Bld) [Ratio] 0 % 0-5 [facility] MCHC Auto (RBC) [Mass/Vol]Or dered By: Duong Durham on 06-27-2023 MCHC (RBC) [Mass/Vol] 31.3 g/dL 32-36 [facility] No Panel InformationOrdered By: Duong Durham on 06-27-2023 Estimated GFR (MDRD) Amer 84 mL/min >60 [facility] Comment on above: GFR Calc Estimated GFR (MDRD) Non-Af Amer 70 mL/min >60 [facility] Comment on above: Non- GFR Calc Thyroid Stimulating Hormone (TSH) 3.89 uIU/mL 0.358-3.74 [facility] Urine Microalbumin/Creatinine Ratio 11.3 mg/g CRE <30 [facility] Vitamin D 25-Hydroxy 67.2 ng/mL [facility] Comment on above: Vitamin D 25(OH) Sta tus Range Deficiency <20 ng/mL (50nmol/L) Insufficiency 20 - 30 ng/mL (50 - 75 nmol/L) Sufficiency 30 - 100 ng/mL (75 - 250 nmol/L) Toxicity >100 ng/mL (>250 nmol/L) Platelets bldOrdered By: Marshal Durham on 06-27-2023 Platelets (Bld) [#/Vol] 192 10*3/uL 150-450 [facility] Serum or plasma albumin jackson urement (mass/volume)Ordered By: Duong Durham on 06-27-2023 Albumin [Mass/Vol] 3.9 g/dL 3.2-5.0 [facility] Serum or plasma albumin/glob ulin mass ratioOrdered By: Duong Durham on 06-27-2023 Albumin/Globulin [Mass ratio] 1.0 {ratio} 0.9-2.4 [facility] Serum or plasma calcium jackson urement (mass/volume)Ordered By: Duong Durham on 06-27-2023 Calcium [Mass/Vol] 9.1 mg/dL 8.5-10.1 [facility] Serum or plasma cholesterol in HDL measurement (mass/volume)Ordered By: Duong Durham on 06-27-2023 Cholesterol in HDL [Mass/Vol] 60 mg/dL >40 [facility] Comment on above: The drugs N-Acetylcy steine and Metamizole may falsely depress this assay. Reference Range HDL <40 mg/dL Low HDL Cholesterol HDL >or= 60 mg/dL High HDL Cholesterol Serum or plasma cholesterol in VLDL measurement (mass/volume)Ordered By: Duong Durham on 06-27-2023 Cholesterol in VLDL [Mass/Vol] 18 mg/dL 5-40 [facility] Serum or plasma creatinine m easurement (mass/volume)Ordered By: Duong Durham on 06-27-2023 Creatinine [Mass/Vol] 0.87 mg/dL 0.55-1.02 [facility] Comment on above: The validity of the calculated GFR & GFRAA in patients over 70 years has not been determined. Clinical correlation is essential. Serum or plasma low density lipoprotein (LDL) cholesterol measurement (mass/volume)Ordered By: Duong Durham on 06-27-2023 Cholesterol in LDL [Mass/Vol] 36 mg/dL 0-130 [facility] Serum or plasma urea nitroge n measurement (mass/volume)Ordered By: Duong Durham on 06-27-2023 Urea nitrogen [Mass/Vol] 15 mg/dL 7-18 [facility] Thin prep Papanicolaou smear with manual screeningOrdered By: Duong Durham on 06-27-2023 Thin prep Papanicolaou smear with manual screening 46 U/L 15-37 [facility] Thin prep Papanicolaou smear with manual screening 8 5-15 [facility] Thin prep Papanicolaou smear with manual screening 12.7 mg/L NO RANGE EST. [facility] Urine creatinine measurement (mass/volume)Ordered By: Duong Durham on 06-27-2023 Creatinine (U) [Mass/Vol] 112.00 mg/dL NO RANGE EST. [facility] Whole blood hemoglobin A1c/t otal hemoglobin ratio (mass fraction)Ordered By: Duong Durham on 06-27-2023 HbA1c (Bld) [Mass fraction] 6.7 % 3.8-5.6 [facility] Comment on above: Normal < 5.7 % Predi abetic 5.7 - 6.4 % Diabetic >or= 6.5 % Please note range changes. Absolute lymphocyte countOrd ered By: Duong Durham on 03-18-2023 Lymphocytes Auto (Unsp spec) [#/Vol] 1.80 10*3/uL 0.83-4.51 [facility] Basophil percentageOrdered B y: Duong Durham on 03-18-2023 Basophils/100 WBC (Bld) 1.1 % 0-1 [facility] Bilirubin [Mass/Vol] 0.40 mg/dL 0.20-1.00 [facility] Comment on above: For patients on eltr ombopag therapy, use of Dimension [place] TBIL is not recommended. Chloride [Moles/Vol] 105 mmol/L 98-107 [facility] Cholesterol [Mass/Vol] 131 mg/dL <200 [facility] Comment on above: <200 mg/dL Desirable 200-240 mg/dL Borderline >240 mg/dL High Risk Eosinophils/100 WBC (Bld) 4.2 % 0-5 [facility] Glucose [Mass/Vol] 166 mg/dL 74-106 [facility] Comment on above: Fasting Glucose resu lt greater than or equal to 126 mg/dL suggests DIABETES MELLITUS per A.D.A. criteria. Neutrophils (Bld) [#/Vol] 2.6 10*3/uL 2.0-7.7 [facility] Neutrophils/100 WBC (Bld) 50.0 % 47-70 [facility] Potassium [Moles/Vol] 3.9 mmol/L 3.5-5.1 [facility] Protein [Mass/Vol] 7.4 g/dL 6.4-8.2 [facility] Sodium [Moles/Vol] 138 mmol/L 136-145 [facility] Triglyceride [Mass/Vol] 98 mg/dL <199 [facility] Comment on above: The drugs N-Acetylcy steine and Metamizole may falsely depress this assay.Serum Triglycerides Reference Interval Normal <150 mg/dL Borderline high 150 - 199 mg/dL High 200 - 499 mg/dL Very High > or = 500 mg/dL WBC (Bld) [#/Vol] 5.3 10*3/uL 4.4-11.0 [facility] Blood erythrocytes count (nu mber/volume)Ordered By: Duong Durham on 03-18-2023 RBC (Bld) [#/Vol] 4.83 10*6/uL 4.2-5.4 [facility] Blood hemoglobin measurement (mass/volume)Ordered By: Duong Durham on 03-18-2023 Hemoglobin (Bld) [Mass/Vol] 13.9 g/dL 12.0-15.0 [facility] Blood lymphocytes/100 leukoc ytesOrdered By: Duong Durham on 03-18-2023 Lymphocytes/100 WBC (Bld) 34.2 % 19-41 [facility] Blood monocytes/100 leukocyt esOrdered By: Duong Durham on 03-18-2023 Monocytes/100 WBC (Bld) 10.3 % 0-10 [facility] Blood platelet mean volumeOr dered By: Duong Durham on 03-18-2023 Platelet mean volume (Bld) [Entitic vol] 10.3 fL 6.2-12.0 [facility] Determination of erythrocyte mean corpuscular volume (MCV)Ordered By: Duong Durham on 03-18-2023 MCV (RBC) [Entitic vol] 90.9 fL 81-99 [facility] Hematocrit Auto (Bld) [Volum e fraction]Ordered By: Duong Durham on 03-18-2023 Hematocrit (Bld) [Volume fraction] 43.9 % 37-47 [facility] Laboratory - Chemistry and C hemistry - challengeOrdered By: Duong Duhram on 03-18-2023 ALP [Catalytic activity/Vol] 72 U/L 45-117 [facility] ALT [Catalytic activity/Vol] 44 U/L 13-56 [facility] CO2 [Moles/Vol] 28.0 mmol/L 21.0-32.0 [facility] Globulin (S) [Mass/Vol] 3.3 g/dL 2.2-4.2 [facility] Magnesium [Mass/Vol] 1.7 mg/dL 1.6-2.6 [facility] Urea nitrogen/Creatinine [Mass ratio] 22.4 mg/mg 10-20 [facility] Laboratory - Hematology and Cell countsOrdered By: Duong Durham on 03-18-2023 Erythrocyte distribution width (RBC) [Entitic vol] 42.4 fL 35.1-43.9 [facility] Erythrocyte distribution width (RBC) [Ratio] 12.9 % 11.6-14.6 [facility] Immature granulocytes/100 WBC (Bld) 0.200 % 0.0-0.9 [facility] Comment on above: IG% - Immature Granu locytes (promyelocytes, myelocytes and metamyelocytes) > 1% indicates that a LEFT SHIFT is Present. MCH (RBC) [Entitic mass] 28.8 pg 27.0-32.0 [facility] Nucleated RBC/100 WBC (Bld) [Ratio] 0 % 0-5 [facility] Auto (RBC) [Mass/Vol]Or dered By: Duong Durham on 03-18-2023 MCHC (RBC) [Mass/Vol] 31.7 g/dL 32-36 [facility] No Panel InformationOrdered By: Duong Durham on 03-18-2023 Estimated GFR (MDRD) Amer 81 mL/min >60 [facility] Comment on above: GFR Calc Estimated GFR (MDRD) Non-Af Amer 67 mL/min >60 [facility] Comment on above: Non- GFR Calc Platelets bldOrdered By: Marshal Durham on 03-18-2023 Platelets (Bld) [#/Vol] 226 10*3/uL 150-450 [facility] Serum or plasma albumin jackson urement (mass/volume)Ordered By: Duong Durham on 03-18-2023 Albumin [Mass/Vol] 4.1 g/dL 3.2-5.0 [facility] Serum or plasma albumin/glob ulin mass ratioOrdered By: Duong Durham on 03-18-2023 Albumin/Globulin [Mass ratio] 1.2 {ratio} 0.9-2.4 [facility] Serum or plasma calcium jackson urement (mass/volume)Ordered By: Duong Durham on 03-18-2023 Calcium [Mass/Vol] 9.3 mg/dL 8.5-10.1 [facility] Serum or plasma cholesterol in HDL measurement (mass/volume)Ordered By: Duong Durham on 03-18-2023 Cholesterol in HDL [Mass/Vol] 61 mg/dL >40 [facility] Comment on above: The drugs N-Acetylcy steine and Metamizole may falsely depress this assay. Reference Range HDL <40 mg/dL Low HDL Cholesterol HDL >or= 60 mg/dL High HDL Cholesterol Serum or plasma cholesterol in VLDL measurement (mass/volume)Ordered By: Duong Durham on 03-18-2023 Cholesterol in VLDL [Mass/Vol] 20 mg/dL 5-40 [facility] Serum or plasma creatinine m easurement (mass/volume)Ordered By: Duong Durham on 03-18-2023 Creatinine [Mass/Vol] 0.89 mg/dL 0.55-1.02 [facility] Comment on above: The validity of the calculated GFR & GFRAA in patients over 70 years has not been determined. Clinical correlation is essential. Serum or plasma low density lipoprotein (LDL) cholesterol measurement (mass/volume)Ordered By: Duong Durham on 03-18-2023 Cholesterol in LDL [Mass/Vol] 50 mg/dL 0-130 [facility] Serum or plasma urea nitroge n measurement (mass/volume)Ordered By: Duong Durham on 03-18-2023 Urea nitrogen [Mass/Vol] 20 mg/dL 7-18 [facility] Thin prep Papanicolaou smear with manual screeningOrdered By: Duong Durham on 03-18-2023 Thin prep Papanicolaou smear with manual screening 38 U/L 15-37 [facility] Thin prep Papanicolaou smear with manual screening 5 5-15 [facility] Whole blood hemoglobin A1c/t otal hemoglobin ratio (mass fraction)Ordered By: Duong Durham on 03-18-2023 HbA1c (Bld) [Mass fraction] 6.8 % 3.8-5.6 [facility] Comment on above: Normal < 5.7 % Predi abetic 5.7 - 6.4 % Diabetic >or= 6.5 % Please note range changes. Absolute lymphocyte countOrd ered By: Dr. Durham on 12-26-2022 Lymphocytes Auto (Unsp spec) [#/Vol] 1.65 10*3/uL 0.83-4.51 [facility] Basophil percentageOrdered B y: Dr. Durham on 12-26-2022 Basophils/100 WBC (Bld) 1.0 % 0-1 [facility] Bilirubin [Mass/Vol] 0.50 mg/dL 0.20-1.00 [facility] Comment on above: For patients on eltr ombopag therapy, use of Dimension [place] TBIL is not recommended. Chloride [Moles/Vol] 105 mmol/L 98-107 [facility] Cholesterol [Mass/Vol] 120 mg/dL <200 [facility] Comment on above: <200 mg/dL Desirable 200-240 mg/dL Borderline >240 mg/dL High Risk Eosinophils/100 WBC (Bld) 3.5 % 0-5 [facility] Glucose [Mass/Vol] 188 mg/dL 74-106 [facility] Comment on above: Fasting Glucose resu lt greater than or equal to 126 mg/dL suggests DIABETES MELLITUS per A.D.A. criteria. Neutrophils (Bld) [#/Vol] 2.6 10*3/uL 2.0-7.7 [facility] Neutrophils/100 WBC (Bld) 52.1 % 47-70 [facility] Potassium [Moles/Vol] 3.7 mmol/L 3.5-5.1 [facility] Protein [Mass/Vol] 7.5 g/dL 6.4-8.2 [facility] Sodium [Moles/Vol] 142 mmol/L 136-145 [facility] Triglyceride [Mass/Vol] 86 mg/dL <199 [facility] Comment on above: The drugs N-Acetylcy steine and Metamizole may falsely depress this assay.Serum Triglycerides Reference Interval Normal <150 mg/dL Borderline high 150 - 199 mg/dL High 200 - 499 mg/dL Very High > or = 500 mg/dL WBC (Bld) [#/Vol] 4.9 10*3/uL 4.4-11.0 [facility] Blood erythrocytes count (nu mber/volume)Ordered By: Dr. Durham on 12-26-2022 RBC (Bld) [#/Vol] 4.72 10*6/uL 4.2-5.4 [facility] Blood hemoglobin measurement (mass/volume)Ordered By: Dr. Durham on 12-26-2022 Hemoglobin (Bld) [Mass/Vol] 13.6 g/dL 12.0-15.0 [facility] Blood lymphocytes/100 leukoc ytesOrdered By: Dr. Durham on 12-26-2022 Lymphocytes/100 WBC (Bld) 33.6 % 19-41 [facility] Blood monocytes/100 leukocyt esOrdered By: Dr. Durham on 12-26-2022 Monocytes/100 WBC (Bld) 9.6 % 0-10 [facility] Blood platelet mean volumeOr dered By: Dr. Durham on 12-26-2022 Platelet mean volume (Bld) [Entitic vol] 10.0 fL 6.2-12.0 [facility] Determination of erythrocyte mean corpuscular volume (MCV)Ordered By: Dr. Durham on 12-26-2022 MCV (RBC) [Entitic vol] 89.0 fL 81-99 [facility] Hematocrit Auto (Bld) [Volum e fraction]Ordered By: Dr. Durham on 12-26-2022 Hematocrit (Bld) [Volume fraction] 42.0 % 37-47 [facility] Laboratory - Chemistry and C hemistry - challengeOrdered By: Yanique Cabrera on 12-26-2022 Amylase [Catalytic activity/Vol] 27 U/L 5-55 [facility] Laboratory - Chemistry and C hemistry - challengeOrdered By: Dr. Durham on 12-26-2022 ALP [Catalytic activity/Vol] 66 U/L 45-117 [facility] ALT [Catalytic activity/Vol] 34 U/L 13-56 [facility] CO2 [Moles/Vol] 26.0 mmol/L 21.0-32.0 [facility] Free T4 [Mass/Vol] 1.04 ng/dL 0.76-1.46 [facility] Globulin (S) [Mass/Vol] 3.6 g/dL 2.2-4.2 [facility] Magnesium [Mass/Vol] 1.7 mg/dL 1.6-2.6 [facility] Urea nitrogen/Creatinine [Mass ratio] 19.9 mg/mg 10-20 [facility] Laboratory - Hematology and Cell countsOrdered By: Dr. Durham on 12-26-2022 Erythrocyte distribution width (RBC) [Entitic vol] 43.8 fL 35.1-43.9 [facility] Erythrocyte distribution width (RBC) [Ratio] 13.4 % 11.6-14.6 [facility] Immature granulocytes/100 WBC (Bld) 0.200 % 0.0-0.9 [facility] Comment on above: IG% - Immature Granu locytes (promyelocytes, myelocytes and metamyelocytes) > 1% indicates that a LEFT SHIFT is Present. MCH (RBC) [Entitic mass] 28.8 pg 27.0-32.0 [facility] Nucleated RBC/100 WBC (Bld) [Ratio] 0 % 0-5 [facility] Auto (RBC) [Mass/Vol]Or dered By: Dr. Durham on 12-26-2022 MCHC (RBC) [Mass/Vol] 32.4 g/dL 32-36 [facility] No Panel InformationOrdered By: Yanique Cabrera on 12-26-2022 Immunoglobulin G4 28 mg/dL 2-96 [facility] No Panel InformationOrdered By: Dr. Durham on 12-26-2022 Estimated GFR (MDRD) Amer 80 mL/min >60 [facility] Comment on above: GFR Calc Estimated GFR (MDRD) Non-Af Amer 66 mL/min >60 [facility] Comment on above: Non- GFR Calc Thyroid Stimulating Hormone (TSH) 2.50 uIU/mL 0.358-3.74 [facility] Urine Microalbumin/Creatinine Ratio 6.7 mg/g CRE <30 [facility] Platelets bldOrdered By: Dr. Durham on 12-26-2022 Platelets (Bld) [#/Vol] 222 10*3/uL 150-450 [facility] Serum IgG subclass 1 measure ment (mass/volume)Ordered By: Yanique Cabrera on 12-26-2022 IgG subclass 1 (S) [Mass/Vol] 689 mg/dL 248-810 [facility] Serum IgG subclass 2 measure ment (mass/volume)Ordered By: Yanique Cabrera on 12-26-2022 IgG subclass 2 (S) [Mass/Vol] 143 mg/dL 130-555 [facility] Serum IgG subclass 3 measure ment (mass/volume)Ordered By: Yanique Cabrera on 12-26-2022 IgG subclass 3 (S) [Mass/Vol] 26 mg/dL 15-102 [facility] Serum mitochondria antibody detectionOrdered By: Yanique Cabrera on 12-26-2022 Mitochondria Ab Ql (S) <20.0 Units 0.0-20.0 [facility] Comment on above: Negative 0.0 - 20.0 Equivocal 20.1 - 24.9 Positive >24.9Mitochondrial (M2) Antibodies are found in 90-96% ofpatients with primary biliary cirrhosis.Performed at: [place] [id number] Director: Yang Tee PhD, Phone: [phone] Serum or plasma IgG measurem ent (mass/volume)Ordered By: Yanique Cabrera on 12-26-2022 IgG [Mass/Vol] 977 mg/dL 586-1602 [facility] Serum or plasma actin IgG an tibody assay (units/volume)Ordered By: Yanique Cabrera on 12-26-2022 Actin IgG Qn 10 Units 0-19 [facility] Comment on above: Negative 0 - 19 Weak positive 20 - 30 Moderate to strong positive >30 Actin Antibodies are found in 52-85% of patients with autoimmune hepatitis or chronic active hepatitis and in 22% of patients with primary biliary cirrhosis.Performed at: [email or web address] [place], [place] [id number] Director: Yang Tee PhD, Phone: [phone] Serum or plasma albumin jackson urement (mass/volume)Ordered By: Dr. Durham on 12-26-2022 Albumin [Mass/Vol] 3.9 g/dL 3.2-5.0 [facility] Serum or plasma albumin/glob ulin mass ratioOrdered By: Dr. Durham on 12-26-2022 Albumin/Globulin [Mass ratio] 1.1 {ratio} 0.9-2.4 [facility] Serum or plasma calcium jackson urement (mass/volume)Ordered By: Dr. Durham on 12-26-2022 Calcium [Mass/Vol] 9.0 mg/dL 8.5-10.1 [facility] Serum or plasma cholesterol in HDL measurement (mass/volume)Ordered By: Dr. Durham on 12-26-2022 Cholesterol in HDL [Mass/Vol] 68 mg/dL >40 [facility] Comment on above: The drugs N-Acetylcy steine and Metamizole may falsely depress this assay. Reference Range HDL <40 mg/dL Low HDL Cholesterol HDL >or= 60 mg/dL High HDL Cholesterol Serum or plasma cholesterol in VLDL measurement (mass/volume)Ordered By: Dr. Durham on 12-26-2022 Cholesterol in VLDL [Mass/Vol] 17 mg/dL 5-40 [facility] Serum or plasma creatinine m easurement (mass/volume)Ordered By: Dr. Durham on 12-26-2022 Creatinine [Mass/Vol] 0.90 mg/dL 0.55-1.02 [facility] Comment on above: The validity of the calculated GFR & GFRAA in patients over 70 years has not been determined. Clinical correlation is essential. Serum or plasma low density lipoprotein (LDL) cholesterol measurement (mass/volume)Ordered By: Dr. Durham on 12-26-2022 Cholesterol in LDL [Mass/Vol] 35 mg/dL 0-130 [facility] Serum or plasma urea nitroge n measurement (mass/volume)Ordered By: Dr. Durham on 12-26-2022 Urea nitrogen [Mass/Vol] 18 mg/dL 7-18 [facility] Serum or plasma uric acid me asurement (mass/volume)Ordered By: Dr. Durham on 12-26-2022 Urate [Mass/Vol] 4.9 mg/dL 2.6-6.0 [facility] Comment on above: The drugs N-Acetylcy steine and Metamizole may falsely depress this assay. Thin prep Papanicolaou smear with manual screeningOrdered By: Dr. Durham on 12-26-2022 Thin prep Papanicolaou smear with manual screening 28 U/L 15-37 [facility] Thin prep Papanicolaou smear with manual screening 11 5-15 [facility] Thin prep Papanicolaou smear with manual screening 7.3 mg/L NO RANGE EST. [facility] Urine creatinine measurement (mass/volume)Ordered By: Dr. Durham on 12-26-2022 Creatinine (U) [Mass/Vol] 109.00 mg/dL NO RANGE EST. [facility] Whole blood hemoglobin A1c/t otal hemoglobin ratio (mass fraction)Ordered By: Dr. Durham on 12-26-2022 HbA1c (Bld) [Mass fraction] 6.7 % 3.8-5.6 [facility] Comment on above: Normal < 5.7 % Predi abetic 5.7 - 6.4 % Diabetic >or= 6.5 % Please note range changes. Glucose Glucometer (BldC) [M ass/Vol]Ordered By: Abdi Jackson on 12-23-2022 Glucose [Mass/Vol] 183 mg/dL 74-106 [facility] Comment on above: MANAGEMENT OF PATIEN T CARE PER NURSING PROTOCOL Ova and parasitesOrdered By: Yanique Cabrera on 10-24-2022 Ova and parasites identified LM Nom (Unsp spec) [facility] No Panel InformationOrdered By: Yanique Cabrera on 10-21-2022 Miscellaneous Test See comment [facility] Comment on above: TEST RESULT LIMITSSt ool CultureSalmonella/Shigella Screen0 Final reportResult 1 No Salmonella or Shigella recovered.Campylobacter Culture Final reportResult 1 No Campylobacter species isolated.E coli Shiga Toxin EIA Negative Negative ___ [facility] ORIGINAL REPORT ON FILE IN LAB CONTAINS ADDITIONAL TEST SITE INFORMATION. Stool Calprotectin <16 ug/g 0-120 [facility] Comment on above: Concentration Interp retation Follow-Up<16 - 50 ug/g Normal None>50 -120 ug/g Borderline Re-evaluate in 4-6 weeks >120 ug/g Abnormal Repeat as clinically indicatedPerformed at: [address] [id number] Director: King Sofia MD, Phone: [phone] Absolute lymphocyte countOrd ered By: Yanique Cabrera on 10-18-2022 Lymphocytes Auto (Unsp spec) [#/Vol] 1.76 10*3/uL 0.83-4.51 [facility] Albumin Elph [Mass/Vol]Order ed By: Yanique Cabrera on 10-18-2022 Albumin [Mass/Vol] 3.7 g/dL 2.9-4.4 [facility] Atypical perinuclear antineu trophil cytoplasmic antibodies measurementOrdered By: Yanique Cabrera on 10-18-2022 Neutrophil cytoplasmic Ab.perinuclear.atypical IF (S) [Titer] 1:160 titer Neg:<1:20 [facility] Comment on above: The atypical pANCA p attern has been observed in asignificant percentage of patients with ulcerative colitis,primary sclerosing cholangitis and autoimmune hepatitis.Performed at: - [facility] [id number] [place], [place] [id number] Director: Yang Tee PhD, Phone: [phone] at: - [facility] [id number] Director: King Sofia MD, Phone: [phone] Basophil percentageOrdered B y: Yanique Cabrera on 10-18-2022 Basophil percentage 0.5 AI 0.0-0.9 [facility] Basophil percentage < 0.2 AI 0.0-0.9 [facility] Basophils/100 WBC (Bld) 0.7 % 0-1 [facility] Bilirubin [Mass/Vol] 0.30 mg/dL 0.20-1.00 [facility] Comment on above: For patients on eltr ombopag therapy, use of Dimension [place] TBIL is not recommended. Chloride [Moles/Vol] 101 mmol/L 98-107 [facility] Eosinophils/100 WBC (Bld) 2.2 % 0-5 [facility] Glucose [Mass/Vol] 155 mg/dL 74-106 [facility] Comment on above: Fasting Glucose resu lt greater than or equal to 126 mg/dL suggests DIABETES MELLITUS per A.D.A. criteria. LDH [Catalytic activity/Vol] 179 U/L 84-246 [facility] Neutrophils (Bld) [#/Vol] 4.6 10*3/uL 2.0-7.7 [facility] Neutrophils/100 WBC (Bld) 63.9 % 47-70 [facility] Potassium [Moles/Vol] 3.2 mmol/L 3.5-5.1 [facility] Protein [Mass/Vol] 7.7 g/dL 6.4-8.2 [facility] Sodium [Moles/Vol] 140 mmol/L 136-145 [facility] WBC (Bld) [#/Vol] 7.2 10*3/uL 4.4-11.0 [facility] Blood erythrocytes count (nu mber/volume)Ordered By: Yanique Cabrera on 10-18-2022 RBC (Bld) [#/Vol] 4.75 10*6/uL 4.2-5.4 [facility] Blood hemoglobin measurement (mass/volume)Ordered By: Yanique Cabrera on 10-18-2022 Hemoglobin (Bld) [Mass/Vol] 13.6 g/dL 12.0-15.0 [facility] Blood lymphocytes/100 leukoc ytesOrdered By: Yanique Cabrera on 10-18-2022 Lymphocytes/100 WBC (Bld) 24.3 % 19-41 [facility] Blood monocytes/100 leukocyt esOrdered By: Yanique Cabrera on 10-18-2022 Monocytes/100 WBC (Bld) 8.6 % 0-10 [facility] Blood platelet mean volumeOr dered By: Yanique Cabrera on 10-18-2022 Platelet mean volume (Bld) [Entitic vol] 10.3 fL 6.2-12.0 [facility] Determination of erythrocyte mean corpuscular volume (MCV)Ordered By: Yanique Cabrera on 10-18-2022 MCV (RBC) [Entitic vol] 90.3 fL 81-99 [facility] Erythrocyte sedimentation ra teOrdered By: Yanique Cabrera on 10-18-2022 ESR (Bld) [Velocity] 23 mm/h 0-30 [facility] Hematocrit Auto (Bld) [Volum e fraction]Ordered By: Yanique Cabrera on 10-18-2022 Hematocrit (Bld) [Volume fraction] 42.9 % 37-47 [facility] Interpretation of serum or p lasma protein pattern by immunofixation (narrative resultOrdered By: Yanique Cabrera on 10-18-2022 Protein Fractions Immunofixation [place] [Interp] See comment [facility] Comment on above: Result: Not Observed Laboratory - Chemistry and C hemistry - challengeOrdered By: Yanique Cabrera on 10-18-2022 ALP [Catalytic activity/Vol] 82 U/L 45-117 [facility] [facility] ALT [Catalytic activity/Vol] 33 U/L 13-56 [facility] CO2 [Moles/Vol] 35.0 mmol/L 21.0-32.0 [facility] Urea nitrogen/Creatinine [Mass ratio] 20.0 mg/mg 10-20 [facility] Laboratory - Hematology and Cell countsOrdered By: Yanique Cabrera on 10-18-2022 Erythrocyte distribution width (RBC) [Entitic vol] 42.2 fL 35.1-43.9 [facility] Erythrocyte distribution width (RBC) [Ratio] 12.7 % 11.6-14.6 [facility] Immature granulocytes/100 WBC (Bld) 0.300 % 0.0-0.9 [facility] Comment on above: IG% - Immature Granu locytes (promyelocytes, myelocytes and metamyelocytes) > 1% indicates that a LEFT SHIFT is Present. MCH (RBC) [Entitic mass] 28.6 pg 27.0-32.0 [facility] Nucleated RBC/100 WBC (Bld) [Ratio] 0 % 0-5 [facility] MCHC Auto (RBC) [Mass/Vol]Or dered By: Yanique Cabrera on 10-18-2022 MCHC (RBC) [Mass/Vol] 31.7 g/dL 32-36 [facility] No Panel InformationOrdered By: Yanique Cabrera on 10-18-2022 Addendum Document Comment . [facility] Comment on above: Protein electrophore sis scan will follow via computer,mail, or hot frame tender delivery. Centromere B Antibody <0.2 AI 0.0-0.9 [facility] Endomysial IgA Antibody Negative Negative [facility] Estimated GFR (MDRD) Amer 76 mL/min >60 [facility] Comment on above: GFR Calc Estimated GFR (MDRD) Non-Af Amer 63 mL/min >60 [facility] Comment on above: Non- GFR Calc Immunoglobulin E 19 IU/mL 6-495 [facility] Miscellaneous Test See comment [facility] Comment on above: TEST RESULT LIMITSIB D Expanded PanelgASCA 15 units 0-50 Negative <45 Equivocal 45 - 50 Positive >50ACCA 32 units 0-90 Negative <80 Equivocal 80 - 90 Positive >90ALCA 9 units 0-60 Negative <55 Equivocal 55 - 60 Positive >60AMCA 17 units 0-100 Negative < 90 Equivocal 90 - 100 Positive >100 This test was developed and its performance characteristics determined by [facility]. It has not been cleared or approved by the Food and Drug Administration. The FDA has determined that such clearance or approval is not necessary.Atypical pANCA Negative NegativeCommentsPattern is not suggestive of Inflammatory Bowel Disease. ___ TESTING PERFORMED AT [facility]. ORIGINAL REPORT ON FILE IN LAB CONTAINS ADDITIONAL TEST SITE INFORMATION. CONTENT DEVELOPMENT SPECIALIST Antibody 0.2 AI 0.0-0.9 [facility] Platelets bldOrdered By: Sharonda Cabrera on 10-18-2022 Platelets (Bld) [#/Vol] 241 10*3/uL 150-450 [facility] Serum DNA double strand anti body assay (units/volume)Ordered By: Yanique Cabrera on 10-18-2022 DNA double strand Ab Qn (S) 1 [IU]/mL 0-9 [facility] Comment on above: Negative <5 Equivoca l 5 - 9 Positive >9 Serum Gudelia-1 antibody assay (u nits/volume)Ordered By: Yanique Cabrera on 10-18-2022 Gudelia-1 extractable nuclear Ab Qn (S) <0.2 AI 0.0-0.9 [facility] Serum Scl-70 extractable nuc lear antibody assay (units/volume)Ordered By: Yanique Cabrera on 10-18-2022 SCL-70 extractable nuclear Ab Qn (S) <0.2 AI 0.0-0.9 [facility] Serum Loo extractable nucl ear antibody detectionOrdered By: Yanique Cabrera on 10-18-2022 Loo extractable nuclear Ab Ql (S) <0.2 AI 0.0-0.9 [facility] Serum evtpo-[id number] measu rement by electrophoresisOrdered By: Yanique Cabrera on 10-18-2022 Alpha 1 globulin Elph [Mass/Vol] 0.2 g/dL 0.0-0.4 [facility] Alpha 1 globulin Elph [Mass/Vol] 1.1 g/dL 0.4-1.0 [facility] Serum classic neutrophil cyt oplasmic antibody assay (units/volume)Ordered By: Yanique Cabrera on 10-18-2022 Neutrophil cytoplasmic Ab.classic Qn (S) <1:20 titer Neg:<1:20 [facility] Serum globulin measurement ( mass/volume)Ordered By: Yanique Cabrera on 10-18-2022 Globulin (S) [Mass/Vol] 3.3 g/dL 2.2-3.9 [facility] Serum or plasma C reactive p rotein measurement (mass/volume)Ordered By: Yanique Cabrera on 10-18-2022 CRP [Mass/Vol] 4.14 mg/L 0.0-3.0 [facility] Comment on above: C-Reactive Protein ( CRP) provides useful information for thediagnosis, therapy and monitoring of inflammatory processesand associated diseases. For the evaluation of Relative Riskfor Cardiovascular Disease, a High Sensitivity CRP (HSCRP)should be ordered. Serum or plasma IgA measurem ent (mass/volume)Ordered By: Yanique Cabrera on 10-18-2022 IgA [Mass/Vol] 121 mg/dL 87-352 [facility] Serum or plasma IgG measurem ent (mass/volume)Ordered By: Yanique Cabrera on 10-18-2022 IgG [Mass/Vol] 1028 mg/dL [phone] [facility] Serum or plasma IgM measurem ent (mass/volume)Ordered By: Yanique Cabrera on 10-18-2022 IgM [Mass/Vol] 61 mg/dL 26-217 [facility] Serum or plasma albumin jackson urement (mass/volume)Ordered By: Yanique Cabrera on 10-18-2022 Albumin [Mass/Vol] 4.0 g/dL 3.2-5.0 [facility] Serum or plasma albumin/glob ulin mass ratioOrdered By: Yanique Cabrera on 10-18-2022 Albumin/Globulin [Mass ratio] 1.1 {ratio} 0.9-2.4 [facility] Serum or plasma beta globuli n measurement by electrophoresis (mass/volume)Ordered By: Yanique Cabrera on 10-18-2022 Beta globulin Elph [Mass/Vol] 1.1 g/dL 0.7-1.3 [facility] Serum or plasma calcium jackson urement (mass/volume)Ordered By: Yanique Cabrera on 10-18-2022 Calcium [Mass/Vol] 9.5 mg/dL 8.5-10.1 [facility] Serum or plasma creatinine m easurement (mass/volume)Ordered By: Yanique Cabrera on 10-18-2022 Creatinine [Mass/Vol] 0.95 mg/dL 0.55-1.02 [facility] Comment on above: The validity of the calculated GFR & GFRAA in patients over 70 years has not been determined. Clinical correlation is essential. Serum or plasma gamma globul in measurement by electrophoresis (mass/volume)Ordered By: Yanique Cabrera on 10-18-2022 Gamma globulin Elph [Mass/Vol] 1.0 g/dL 0.4-1.8 [facility] Serum or plasma immunoelectr ophoresis interpretation (nominal result)Ordered By: Yanique Cabrera on 10-18-2022 Interpretation IEP [Interp] Comment . [facility] Comment on above: No monoclonality det ected. Serum or plasma urea nitroge n measurement (mass/volume)Ordered By: Yanique Cabrera on 10-18-2022 Urea nitrogen [Mass/Vol] 19 mg/dL 7-18 [facility] Serum perinuclear neutrophil cytoplasmic antibody titer by immunofluorescenceOrdered By: Yanique Cabrera on 10-18-2022 Neutrophil cytoplasmic Ab.perinuclear IF (S) [Titer] <1:20 titer Neg:<1:20 [facility] Comment on above: The presence of posi tive fluorescence exhibiting P-ANCA orC-ANCA patterns alone is not specific for the diagnosis ofWegener's Granulomatosis (WG) or microscopic polyangiitis.Decisions about treatment should not be based solely onANCA IFA results. The [employer] Consensusrecommends follow up testing of positive sera with both KS-3 and MPO-ANCA enzyme immunoassays. As many as 5% serumsamples are positive only by EIA. Ref. AM J Clin [id number];111:507-513. Serum tissue transglutaminas e IgA antibody assay (units/volume)Ordered By: Yanique Cabrera on 10-18-2022 tTG IgA Qn (S) <2 U/mL 0-3 [facility] Comment on above: Negative 0 - 3 Weak Positive 4 - 10 Positive >10 Tissue Transglutaminase (tTG) has been identified as the endomysial antigen. Studies have demonstr- ated that endomysial IgA antibodies have over 99% specificity for gluten sensitive enteropathy. Thin prep Papanicolaou smear with manual screeningOrdered By: Yanique Cabrera on 10-18-2022 Thin prep Papanicolaou smear with manual screening 21 U/L 15-37 [facility] Thin prep Papanicolaou smear with manual screening 4 5-15 [facility] Thin prep Papanicolaou smear with manual screening 1.2 0.7-1.7 [facility] Total protein bloodOrdered B y: Yanique Cabrera on 10-18-2022 Protein [Mass/Vol] 7.0 g/dL 6.0-8.5 [facility] Absolute lymphocyte countOrd ered By: Dr. Durham on 08-27-2022 Lymphocytes Auto (Unsp spec) [#/Vol] 1.46 10*3/uL 0.83-4.51 [facility] Basophil percentageOrdered B y: Dr. Durahm on 08-27-2022 Basophils/100 WBC (Bld) 1.0 % 0-1 [facility] Bilirubin [Mass/Vol] 0.30 mg/dL 0.20-1.00 [facility] Comment on above: For patients on eltr ombopag therapy, use of Dimension [place] TBIL is not recommended. Chloride [Moles/Vol] 102 mmol/L 98-107 [facility] Cholesterol [Mass/Vol] 144 mg/dL <200 [facility] Comment on above: <200 mg/dL Desirable 200-240 mg/dL Borderline >240 mg/dL High Risk Eosinophils/100 WBC (Bld) 2.4 % 0-5 [facility] Glucose [Mass/Vol] 195 mg/dL 74-106 [facility] Comment on above: Fasting Glucose resu lt greater than or equal to 126 mg/dL suggests DIABETES MELLITUS per A.D.A. criteria. Neutrophils (Bld) [#/Vol] 3.6 10*3/uL 2.0-7.7 [facility] Neutrophils/100 WBC (Bld) 61.9 % 47-70 [facility] Potassium [Moles/Vol] 4.0 mmol/L 3.5-5.1 [facility] Protein [Mass/Vol] 7.7 g/dL 6.4-8.2 [facility] Sodium [Moles/Vol] 139 mmol/L 136-145 [facility] Triglyceride [Mass/Vol] 79 mg/dL <199 [facility] Comment on above: The drugs N-Acetylcy steine and Metamizole may falsely depress this assay.Serum Triglycerides Reference Interval Normal <150 mg/dL Borderline high 150 - 199 mg/dL High 200 - 499 mg/dL Very High > or = 500 mg/dL WBC (Bld) [#/Vol] 5.8 10*3/uL 4.4-11.0 [facility] Blood erythrocytes count (nu mber/volume)Ordered By: Dr. Durham on 08-27-2022 RBC (Bld) [#/Vol] 4.51 10*6/uL 4.2-5.4 [facility] Blood hemoglobin measurement (mass/volume)Ordered By: Dr. Durham on 08-27-2022 Hemoglobin (Bld) [Mass/Vol] 13.1 g/dL 12.0-15.0 [facility] Blood lymphocytes/100 leukoc ytesOrdered By: Dr. Durham on 08-27-2022 Lymphocytes/100 WBC (Bld) 25.1 % 19-41 [facility] Blood monocytes/100 leukocyt esOrdered By: Dr. Durham on 08-27-2022 Monocytes/100 WBC (Bld) 9.3 % 0-10 [facility] Blood platelet mean volumeOr dered By: Dr. Durham on 08-27-2022 Platelet mean volume (Bld) [Entitic vol] 10.1 fL 6.2-12.0 [facility] Determination of erythrocyte mean corpuscular volume (MCV)Ordered By: Dr. Durham on 08-27-2022 MCV (RBC) [Entitic vol] 92.9 fL 81-99 [facility] Hematocrit Auto (Bld) [Volum e fraction]Ordered By: Dr. Durham on 08-27-2022 Hematocrit (Bld) [Volume fraction] 41.9 % 37-47 [facility] Laboratory - Chemistry and C hemistry - challengeOrdered By: Dr. Durham on 08-27-2022 ALP [Catalytic activity/Vol] 76 U/L 45-117 [facility] ALT [Catalytic activity/Vol] 32 U/L 13-56 [facility] CO2 [Moles/Vol] 30.0 mmol/L 21.0-32.0 [facility] Free T4 [Mass/Vol] 1.08 ng/dL 0.76-1.46 [facility] Globulin (S) [Mass/Vol] 3.9 g/dL 2.2-4.2 [facility] Magnesium [Mass/Vol] 2.1 mg/dL 1.6-2.6 [facility] Urea nitrogen/Creatinine [Mass ratio] 14.3 mg/mg 10-20 [facility] Laboratory - Hematology and Cell countsOrdered By: Dr. Durham on 08-27-2022 Erythrocyte distribution width (RBC) [Entitic vol] 46.6 fL 35.1-43.9 [facility] Erythrocyte distribution width (RBC) [Ratio] 13.8 % 11.6-14.6 [facility] Immature granulocytes/100 WBC (Bld) 0.300 % 0.0-0.9 [facility] Comment on above: IG% - Immature Granu locytes (promyelocytes, myelocytes and metamyelocytes) > 1% indicates that a LEFT SHIFT is Present. MCH (RBC) [Entitic mass] 29.0 pg 27.0-32.0 [facility] Nucleated RBC/100 WBC (Bld) [Ratio] 0 % 0-5 [facility] MCHC Auto (RBC) [Mass/Vol]Or dered By: Dr. Durham on 08-27-2022 MCHC (RBC) [Mass/Vol] 31.3 g/dL 32-36 [facility] No Panel InformationOrdered By: Dr. Durham on 08-27-2022 Estimated GFR (MDRD) Amer 87 mL/min >60 [facility] Comment on above: GFR Calc Estimated GFR (MDRD) Non-Af Amer 72 mL/min >60 [facility] Comment on above: Non- GFR Calc Thyroid Stimulating Hormone (TSH) 2.08 uIU/mL 0.358-3.74 [facility] Vitamin D 25-Hydroxy 52.5 ng/mL [facility] Comment on above: Vitamin D 25(OH) Sta tus Range Deficiency <20 ng/mL (50nmol/L) Insufficiency 20 - 30 ng/mL (50 - 75 nmol/L) Sufficiency 30 - 100 ng/mL (75 - 250 nmol/L) Toxicity >100 ng/mL (>250 nmol/L) Platelets bldOrdered By: Dr. Durham on 08-27-2022 Platelets (Bld) [#/Vol] 282 10*3/uL 150-450 [facility] Serum or plasma albumin jackson urement (mass/volume)Ordered By: Dr. Durham on 08-27-2022 Albumin [Mass/Vol] 3.8 g/dL 3.2-5.0 [facility] Serum or plasma albumin/glob ulin mass ratioOrdered By: Dr. Durham on 08-27-2022 Albumin/Globulin [Mass ratio] 1.0 {ratio} 0.9-2.4 [facility] Serum or plasma calcium jackson urement (mass/volume)Ordered By: Dr. Durham on 08-27-2022 Calcium [Mass/Vol] 9.3 mg/dL 8.5-10.1 [facility] Serum or plasma cholesterol in HDL measurement (mass/volume)Ordered By: Dr. Durham on 08-27-2022 Cholesterol in HDL [Mass/Vol] 69 mg/dL >40 [facility] Comment on above: The drugs N-Acetylcy steine and Metamizole may falsely depress this assay. Reference Range HDL <40 mg/dL Low HDL Cholesterol HDL >or= 60 mg/dL High HDL Cholesterol Serum or plasma cholesterol in VLDL measurement (mass/volume)Ordered By: Dr. Durham on 08-27-2022 Cholesterol in VLDL [Mass/Vol] 16 mg/dL 5-40 [facility] Serum or plasma creatinine m easurement (mass/volume)Ordered By: Dr. Durham on 08-27-2022 Creatinine [Mass/Vol] 0.84 mg/dL 0.55-1.02 [facility] Comment on above: The validity of the calculated GFR & GFRAA in patients over 70 years has not been determined. Clinical correlation is essential. Serum or plasma low density lipoprotein (LDL) cholesterol measurement (mass/volume)Ordered By: Dr. Durham on 08-27-2022 Cholesterol in LDL [Mass/Vol] 59 mg/dL 0-130 [facility] Serum or plasma urea nitroge n measurement (mass/volume)Ordered By: Dr. Durham on 08-27-2022 Urea nitrogen [Mass/Vol] 12 mg/dL 7-18 [facility] Serum or plasma uric acid me asurement (mass/volume)Ordered By: Dr. Durham on 08-27-2022 Urate [Mass/Vol] 4.0 mg/dL 2.6-6.0 [facility] Comment on above: The drugs N-Acetylcy steine and Metamizole may falsely depress this assay. Thin prep Papanicolaou smear with manual screeningOrdered By: Dr. Durham on 08-27-2022 Thin prep Papanicolaou smear with manual screening 22 U/L 15-37 [facility] Thin prep Papanicolaou smear with manual screening 7 5-15 [facility] Whole blood hemoglobin A1c/t otal hemoglobin ratio (mass fraction)Ordered By: Dr. Durham on 08-27-2022 HbA1c (Bld) [Mass fraction] 6.2 % 3.8-5.6 [facility] Comment on above: Normal < 5.7 % Predi abetic 5.7 - 6.4 % Diabetic >or= 6.5 % Please note range changes. No Panel InformationOrdered By: Dr. Durham on 07-31-2022 Stool Pancreatic Elastase 438 >200 [facility] Comment on above: Result Units: ug Caroline st./g Severe Pancreatic Insufficiency: <100 Moderate Pancreatic Insufficiency: 100 - 200 Normal: >200Performed at: [facility] [id number] [place], [place] [id number] Director: King Sofia MD, Phone: [phone] HEMOGLOBIN & HEMATOCRITon Hematocrit (Bld) [Volume fraction] 38.3 % 34.9 - 44.3 % [facility] Hemoglobin (Bld) [Mass/Vol] 12.5 g/dL 11.4 - 15.2 g/dL [facility] Interpretation and review of laboratory results Normal [facility] LT BLUE TOP TUBEon [facility] CBC AND ELECTRONIC DIFFon Basophils (Bld) [#/Vol] 0.05 10*3/uL 0.00 - 0.15 K/uL [facility] Basophils/100 WBC (Bld) 0.7 % [facility] Differential cell count method Nom (Bld) Electronic Differential [facility] Eosinophils (Bld) [#/Vol] 0.30 10*3/uL 0.00 - 0.42 K/uL [facility] Eosinophils/100 WBC (Bld) 4.0 % [facility] Erythrocyte distribution width (RBC) [Ratio] 12.8 % 10.8 - 14.9 % [facility] Hematocrit (Bld) [Volume fraction] 41.3 % 34.9 - 44.3 % [facility] Hemoglobin (Bld) [Mass/Vol] 13.5 g/dL 11.4 - 15.2 g/dL [facility] Immature granulocytes (Bld) [#/Vol] K/uL NINF - 0.08 K/uL [facility] Immature granulocytes/100 WBC (Bld) 0.3 % [facility] Interpretation and review of laboratory results Abnormal [facility] Lymphocytes (Bld) [#/Vol] 1.39 10*3/uL 1.16 - 3.51 K/uL [facility] Lymphocytes/100 WBC (Bld) 18.4 % [facility] MCH (RBC) [Entitic mass] 29.3 pg 25.9 - 33.9 pg [facility] MCHC (RBC) [Mass/Vol] 32.7 g/dL 31.4 - 35.9 g/dL [facility] MCV (RBC) [Entitic vol] 89.6 fL 79.6 - 97.7 fL [facility] Monocytes (Bld) [#/Vol] 0.96 10*3/uL High 0.22 - 0.87 K/uL [facility] Monocytes/100 WBC (Bld) 12.7 % [facility] Neutrophils (Bld) [#/Vol] 4.85 10*3/uL 1.64 - 7.28 K/uL [facility] Nucleated RBC/100 WBC (Bld) [Ratio] 0.0 % [facility] Platelet mean volume (Bld) [Entitic vol] 10.2 fL 8.5 - 12.2 fL [facility] Platelets (Bld) [#/Vol] 346 10*3/uL 150 - 393 K/uL [facility] RBC (Bld) [#/Vol] 4.61 10*6/uL [facility] Segmented neutrophils/100 WBC (Bld) 63.9 % [facility] WBC (Bld) [#/Vol] 7.57 10*3/uL 3.99 - 11. 19 K/uL [facility] GLUCOSE POCon 07-21-2022 Glucose [Mass/Vol] 167 mg/dL High 70 - 99 mg/dL [facility] Interpretation and review of laboratory results Abnormal [facility] POC Sample Type CAPBL [facility] Test performed at address of the patient encounter. [facility] Glucose [Mass/Vol] 124 mg/dL High 70 - 99 mg/dL [facility] Interpretation and review of laboratory results Abnormal [facility] POC Sample Type CAPBL [facility] Test performed at address of the patient encounter. [facility] HEMOGLOBIN & HEMATOCRITon Hematocrit (Bld) [Volume fraction] 39.4 % 34.9 - 44.3 % [facility] Hemoglobin (Bld) [Mass/Vol] 12.9 g/dL 11.4 - 15.2 g/dL [facility] Interpretation and review of laboratory results Normal [facility] CALCIUMon 07-17-2022 Calcium [Mass/Vol] 9.5 mg/dL 8.6 - 10. 5 mg/dL [facility] CBC,PLATELETSon 07-17-2022 Erythrocyte distribution width (RBC) [Ratio] 13.1 % 10.8 - 14.9 % [facility] Hematocrit (Bld) [Volume fraction] 39.5 % 34.9 - 44.3 % [facility] Hemoglobin (Bld) [Mass/Vol] 12.9 g/dL 11.4 - 15.2 g/dL [facility] Interpretation and review of laboratory results Normal [facility] MCH (RBC) [Entitic mass] 29.1 pg 25.9 - 33.9 pg [facility] MCHC (RBC) [Mass/Vol] 32.7 g/dL 31.4 - 35.9 g/dL [facility] MCV (RBC) [Entitic vol] 89.2 fL 79.6 - 97.7 fL [facility] Platelet mean volume (Bld) [Entitic vol] 10.6 fL 8.5 - 12.2 fL [facility] Platelets (Bld) [#/Vol] 253 10*3/uL 150 - 393 K/uL [facility] RBC (Bld) [#/Vol] 4.43 10*6/uL [facility] WBC (Bld) [#/Vol] 7.13 10*3/uL 3.99 - 11. 19 K/uL [facility] CHEM 7 (LYTES,BUN,CREA,GLUC) on 07-17-2022 Anion gap [Moles/Vol] 13 mmol/L 7 - 17 mmol/L [facility] Chloride [Moles/Vol] 100 mmol/L 98 - 10 8 mmol/L [facility] CO2 [Moles/Vol] 29 mmol/L 21 - 31 mmol/L [facility] Creatinine [Mass/Vol] 0.74 mg/dL 0.50 - 1.20 mg/dL [facility] GFR/1.73 sq M.predicted CKD-EPI (S/P/Bld) [Vol rate/Area] 90 >=60 mL/min/1.73m 2 [facility] Comment on above: Reported eGFR is bas ed on the CKD-EPI 2020 equation using creatinine, age, and sex. Glucose [Mass/Vol] 174 mg/dL High 70 - 99 mg/dL [facility] Interpretation and review of laboratory results Abnormal [facility] Osmolality Calc [Osmolality] 295 [facility] Potassium [Moles/Vol] 4.0 mmol/L 3.5 - 5.0 mmol/L [facility] Sodium [Moles/Vol] 138 mmol/L 135 - 145 mmol/L [facility] Urea nitrogen [Mass/Vol] 15 mg/dL 7 - 25 mg/dL [facility] Urea nitrogen/Creatinine [Mass ratio] 20 mg/mg [facility] GLUCOSE POCon 07-17-2022 Glucose [Mass/Vol] 144 mg/dL High 70 - 99 mg/dL [facility] Comment on above: Notified RNread back Interpretation and review of laboratory results Abnormal [facility] POC Sample Type CAPBL [facility] Test performed at address of the patient encounter. [facility] Glucose [Mass/Vol] 173 mg/dL High 70 - 99 mg/dL [facility] Interpretation and review of laboratory results Abnormal [facility] POC Sample Type CAPBL [facility] Test performed at address of the patient encounter. [facility] MAGNESIUMon 07-17-2022 Magnesium [Mass/Vol] 1.6 mg/dL 1.6 - 2 .6 mg/dL [facility] No Panel Informationon 07-17 Interpretation and review of laboratory results Normal [facility] PHOSPHATE, INORGANICon 07-17 Phosphate [Mass/Vol] 3.5 mg/dL 2.2 - 4 .6 mg/dL [facility] CALCIUMon 07-16-2022 Calcium [Mass/Vol] 8.6 mg/dL 8.6 - 10. 5 mg/dL [facility] CBC,PLATELETSon 07-16-2022 Erythrocyte distribution width (RBC) [Ratio] 13.2 % 10.8 - 14.9 % [facility] [facility] Hematocrit (Bld) [Volume fraction] 36.9 % 34.9 - 44.3 % [facility] Hemoglobin (Bld) [Mass/Vol] 11.7 g/dL 11.4 - 15.2 g/dL [facility] Interpretation and review of laboratory results Normal [facility] MCH (RBC) [Entitic mass] 28.5 pg 25.9 - 33.9 pg [facility] MCHC (RBC) [Mass/Vol] 31.7 g/dL 31.4 - 35.9 g/dL [facility] MCV (RBC) [Entitic vol] 90.0 fL 79.6 - 97.7 fL [facility] Platelet mean volume (Bld) [Entitic vol] 10.6 fL 8.5 - 12.2 fL [facility] Platelets (Bld) [#/Vol] 209 10*3/uL 150 - 393 K/uL [facility] RBC (Bld) [#/Vol] 4.10 10*6/uL [facility] WBC (Bld) [#/Vol] 6.39 10*3/uL 3.99 - 11. 19 K/uL [facility] CHEM 7 (LYTES,BUN,CREA,GLUC) on 07-16-2022 Anion gap [Moles/Vol] 14 mmol/L 7 - 17 mmol/L [facility] Chloride [Moles/Vol] 102 mmol/L 98 - 10 8 mmol/L [facility] CO2 [Moles/Vol] 28 mmol/L 21 - 31 mmol/L [facility] Creatinine [Mass/Vol] 0.72 mg/dL 0.50 - 1.20 mg/dL [facility] GFR/1.73 sq M.predicted CKD-EPI (S/P/Bld) [Vol rate/Area] >90 >=60 mL/min/1.73m 2 [facility] Comment on above: Reported eGFR is bas ed on the CKD-EPI 2020 equation using creatinine, age, and sex. Glucose [Mass/Vol] 181 mg/dL High 70 - 99 mg/dL [facility] Interpretation and review of laboratory results Abnormal [facility] Osmolality Calc [Osmolality] 298 [facility] Potassium [Moles/Vol] 3.9 mmol/L 3.5 - 5.0 mmol/L [facility] Sodium [Moles/Vol] 140 mmol/L 135 - 145 mmol/L [facility] Urea nitrogen [Mass/Vol] 13 mg/dL 7 - 25 mg/dL [facility] Urea nitrogen/Creatinine [Mass ratio] 18 mg/mg [facility] GLUCOSE POCon 07-16-2022 Glucose [Mass/Vol] 165 mg/dL High 70 - 99 mg/dL [facility] Interpretation and review of laboratory results Abnormal [facility] POC Sample Type CAPBL [facility] Test performed at address of the patient encounter. [facility] Glucose [Mass/Vol] 190 mg/dL High 70 - 99 mg/dL [facility] Interpretation and review of laboratory results Abnormal [facility] POC Sample Type CAPBL [facility] Test performed at address of the patient encounter. [facility] Glucose [Mass/Vol] 173 mg/dL High 70 - 99 mg/dL [facility] Interpretation and review of laboratory results Abnormal [facility] POC Sample Type CAPBL [facility] Test performed at address of the patient encounter. [facility] Glucose [Mass/Vol] 153 mg/dL High 70 - 99 mg/dL [facility] Interpretation and review of laboratory results Abnormal [facility] POC Sample Type CAPBL [facility] Test performed at address of the patient encounter. [facility] MAGNESIUMon 07-16-2022 Magnesium [Mass/Vol] 2.0 mg/dL 1.6 - 2 .6 mg/dL [facility] No Panel Informationon 07-16 Interpretation and review of laboratory results Normal [facility] PHOSPHATE, INORGANICon 07-16 Phosphate [Mass/Vol] 3.3 mg/dL 2.2 - 4 .6 mg/dL [facility] CALCIUMon 07-15-2022 Calcium [Mass/Vol] 9.0 mg/dL 8.6 - 10. 5 mg/dL [facility] CBC,PLATELETSon 07-15-2022 Erythrocyte distribution width (RBC) [Ratio] 13.2 % 10.8 - 14.9 % [facility] Hematocrit (Bld) [Volume fraction] 36.0 % 34.9 - 44.3 % [facility] Hemoglobin (Bld) [Mass/Vol] 11.7 g/dL 11.4 - 15.2 g/dL [facility] Interpretation and review of laboratory results Normal [facility] MCH (RBC) [Entitic mass] 29.5 pg 25.9 - 33.9 pg [facility] MCHC (RBC) [Mass/Vol] 32.5 g/dL 31.4 - 35.9 g/dL [facility] MCV (RBC) [Entitic vol] 90.9 fL 79.6 - 97.7 fL [facility] Platelet mean volume (Bld) [Entitic vol] 10.2 fL 8.5 - 12.2 fL [facility] Platelets (Bld) [#/Vol] 183 10*3/uL 150 - 393 K/uL [facility] RBC (Bld) [#/Vol] 3.96 10*6/uL [facility] WBC (Bld) [#/Vol] 6.80 10*3/uL 3.99 - 11. 19 K/uL [facility] CHEM 7 (LYTES,BUN,CREA,GLUC) on 07-15-2022 Anion gap [Moles/Vol] 14 mmol/L 7 - 17 mmol/L [facility] Chloride [Moles/Vol] 102 mmol/L 98 - 10 8 mmol/L [facility] CO2 [Moles/Vol] 28 mmol/L 21 - 31 mmol/L [facility] Creatinine [Mass/Vol] 0.73 mg/dL 0.50 - 1.20 mg/dL [facility] GFR/1.73 sq M.predicted CKD-EPI (S/P/Bld) [Vol rate/Area] >90 >=60 mL/min/1.73m 2 [facility] Comment on above: Reported eGFR is bas ed on the CKD-EPI 2020 equation using creatinine, age, and sex. Glucose [Mass/Vol] 128 mg/dL High 70 - 99 mg/dL [facility] Interpretation and review of laboratory results Abnormal [facility] Osmolality Calc [Osmolality] 294 [facility] Potassium [Moles/Vol] 3.8 mmol/L 3.5 - 5.0 mmol/L [facility] Sodium [Moles/Vol] 140 mmol/L 135 - 145 mmol/L [facility] Urea nitrogen [Mass/Vol] 11 mg/dL 7 - 25 mg/dL [facility] Urea nitrogen/Creatinine [Mass ratio] 15 mg/mg [facility] GLUCOSE POCon 07-15-2022 Glucose [Mass/Vol] 269 mg/dL High 70 - 99 mg/dL [facility] Interpretation and review of laboratory results Abnormal [facility] POC Sample Type CAPBL [facility] Test performed at address of the patient encounter. [facility] Glucose [Mass/Vol] 159 mg/dL High 70 - 99 mg/dL [facility] Interpretation and review of laboratory results Abnormal [facility] POC Sample Type CAPBL [facility] Test performed at address of the patient encounter. [facility] Glucose [Mass/Vol] 145 mg/dL High 70 - 99 mg/dL [facility] Interpretation and review of laboratory results Abnormal [facility] POC Sample Type CAPBL [facility] Test performed at address of the patient encounter. [facility] Glucose [Mass/Vol] 202 mg/dL High 70 - 99 mg/dL [facility] Interpretation and review of laboratory results Abnormal [facility] POC Sample Type CAPBL [facility] Test performed at address of the patient encounter. [facility] MAGNESIUMon 07-15-2022 Magnesium [Mass/Vol] 1.7 mg/dL 1.6 - 2 .6 mg/dL [facility] No Panel Informationon 07-15 Interpretation and review of laboratory results Normal [facility] PHOSPHATE, INORGANICon 07-15 Phosphate [Mass/Vol] 3.2 mg/dL 2.2 - 4 .6 mg/dL [facility] CALCIUMon 07-14-2022 Calcium [Mass/Vol] 8.6 mg/dL 8.6 - 10. 5 mg/dL [facility] CBC,PLATELETSon 07-14-2022 Erythrocyte distribution width (RBC) [Ratio] 13.4 % 10.8 - 14.9 % [facility] Hematocrit (Bld) [Volume fraction] 35.0 % 34.9 - 44.3 % [facility] Hemoglobin (Bld) [Mass/Vol] 11.3 g/dL Low 11.4 - 15.2 g/dL [facility] Interpretation and review of laboratory results Abnormal [facility] MCH (RBC) [Entitic mass] 29.4 pg 25.9 - 33.9 pg [facility] MCHC (RBC) [Mass/Vol] 32.3 g/dL 31.4 - 35.9 g/dL [facility] MCV (RBC) [Entitic vol] 91.1 fL 79.6 - 97.7 fL [facility] Platelet mean volume (Bld) [Entitic vol] 10.6 fL 8.5 - 12.2 fL [facility] Platelets (Bld) [#/Vol] 180 10*3/uL 150 - 393 K/uL [facility] RBC (Bld) [#/Vol] 3.84 10*6/uL Low [facility] WBC (Bld) [#/Vol] 8.07 10*3/uL 3.99 - 11. 19 K/uL [facility] CHEM 7 (LYTES,BUN,CREA,GLUC) on 07-14-2022 Anion gap [Moles/Vol] 11 mmol/L 7 - 17 mmol/L [facility] Chloride [Moles/Vol] 100 mmol/L 98 - 10 8 mmol/L [facility] CO2 [Moles/Vol] 30 mmol/L 21 - 31 mmol/L [facility] Creatinine [Mass/Vol] 0.71 mg/dL 0.50 - 1.20 mg/dL [facility] GFR/1.73 sq M.predicted CKD-EPI (S/P/Bld) [Vol rate/Area] >90 >=60 mL/min/1.73m 2 [facility] Comment on above: Reported eGFR is bas ed on the CKD-EPI 2020 equation using creatinine, age, and sex. Glucose [Mass/Vol] 247 mg/dL High 70 - 99 mg/dL [facility] Interpretation and review of laboratory results Abnormal [facility] Osmolality Calc [Osmolality] 296 [facility] Potassium [Moles/Vol] 3.7 mmol/L 3.5 - 5.0 mmol/L [facility] Sodium [Moles/Vol] 137 mmol/L 135 - 145 mmol/L [facility] Urea nitrogen [Mass/Vol] 13 mg/dL 7 - 25 mg/dL [facility] Urea nitrogen/Creatinine [Mass ratio] 18 [facility]SE [facility]Con 07-14-2022 Glucose [Mass/Vol] 228 mg/dL High 70 - 99 mg/dL [facility] Interpretation and review of laboratory results Abnormal [facility] POC Sample Type CAPBL [facility] Glucose [Mass/Vol] 243 mg/dL High 70 - 99 mg/dL [facility] Interpretation and review of laboratory results Abnormal [facility] POC Sample Type CAPBL [facility] Test performed at address of the patient encounter. [facility] Glucose [Mass/Vol] 163 mg/dL High 70 - 99 mg/dL [facility] Interpretation and review of laboratory results Abnormal [facility] POC Sample Type CAPBL [facility] Test performed at address of the patient encounter. [facility] Glucose [Mass/Vol] 254 mg/dL High 70 - 99 mg/dL [facility] Interpretation and review of laboratory results Abnormal [facility] POC Sample Type CAPBL [facility] Test performed at address of the patient encounter. [facility] MAGNESIUMon 07-14-2022 Magnesium [Mass/Vol] 1.7 mg/dL 1.6 - 2 .6 mg/dL [facility] No Panel Informationon 07-14 Interpretation and review of laboratory results Normal [facility] PHOSPHATE, INORGANICon 07-14 Phosphate [Mass/Vol] 2.4 mg/dL 2.2 - 4 .6 mg/dL [facility] XR Abdomen Single viewon IMPRESSION: Dobbhoff tube with tip in the anatomical region of the gastric body. If postpyloric position is desired, further advancement is recommended. OLOGY EXAM: XR ABDOMEN 1 V IEW PORTABLE, 07/14/2022 20:36 PM COMPARISON: Abdominal radiograph dated July 12, 2022. CLINICAL INDICATIONS: DHT placement FINDINGS: Limited field of view radiograph of the upper abdomen was obtained to evaluate enteric tube positioning. The Dobbhoff tube is located with its tip in the anatomical region of the gastric body. Bowel gas pattern is non-obstructive. No gross free air. Mild prominence of the liver silhouette. Safety pin overlying the lateral aspect of the left hemiabdomen. Radiopacities overlying the renal silhouettes are not as evident on this study. Visualized osseous structures demonstrate bone demineralization and multilevel degenerative changes. RADIOLOGY Karen Wong ma, MD - 07/14/2022 EXAM: XR ABDOMEN 1 VIEW PORTABLE, 07/14/2022 20:36 PM COMPARISON: Abdominal radiograph dated July 12, 2022. CLINICAL INDICATIONS: DHT placement FINDINGS: Limited field of view radiograph of the upper abdomen was obtained to evaluate enteric tube positioning. The Dobbhoff tube is located with its tip in the anatomical region of the gastric body. Bowel gas pattern is non-obstructive. No gross free air. Mild prominence of the liver silhouette. Safety pin overlying the lateral aspect of the left hemiabdomen. Radiopacities overlying the renal silhouettes are not as evident on this study. Visualized osseous structures demonstrate bone demineralization and multilevel degenerative changes. IMPRESSION IMPRESSION: Dobbhoff tube with tip in the anatomical region of the gastric body. If postpyloric position is desired, further advancement is recommended. [facility] Radiology Study observation (narrative) [facility] XR Abdomen Single viewOrdere d By: Adela Martin on 07-14-2022 [facility] Work Phone: CALCIUMon 07-13-2022 Calcium [Mass/Vol] 8.8 mg/dL 8.6 - 10. 5 mg/dL [facility] CBC,PLATELETSon 07-13-2022 Erythrocyte distribution width (RBC) [Ratio] 13.2 % 10.8 - 14.9 % [facility] Hematocrit (Bld) [Volume fraction] 37.3 % 34.9 - 44.3 % [facility] Hemoglobin (Bld) [Mass/Vol] 12.0 g/dL 11.4 - 15.2 g/dL [facility] Interpretation and review of laboratory results Normal [facility] MCH (RBC) [Entitic mass] 28.9 pg 25.9 - 33.9 pg [facility] MCHC (RBC) [Mass/Vol] 32.2 g/dL 31.4 - 35.9 g/dL [facility] MCV (RBC) [Entitic vol] 89.9 fL 79.6 - 97.7 fL [facility] Platelet mean volume (Bld) [Entitic vol] 10.2 fL 8.5 - 12.2 fL [facility] Platelets (Bld) [#/Vol] 221 10*3/uL 150 - 393 K/uL [facility] RBC (Bld) [#/Vol] 4.15 10*6/uL [facility] WBC (Bld) [#/Vol] 9.39 10*3/uL 3.99 - 11. 19 K/uL [facility] CHEM 7 (LYTES,BUN,CREA,GLUC) on 07-13-2022 Anion gap [Moles/Vol] 15 mmol/L 7 - 17 mmol/L [facility] Chloride [Moles/Vol] 101 mmol/L 98 - 10 8 mmol/L [facility] CO2 [Moles/Vol] 27 mmol/L 21 - 31 mmol/L [facility] Creatinine [Mass/Vol] 0.77 mg/dL 0.50 - 1.20 mg/dL [facility] GFR/1.73 sq M.predicted CKD-EPI (S/P/Bld) [Vol rate/Area] 86 >=60 mL/min/1.73m 2 [facility] Comment on above: Reported eGFR is bas ed on the CKD-EPI 2020 equation using creatinine, age, and sex. Glucose [Mass/Vol] 171 mg/dL High 70 - 99 mg/dL [facility] Interpretation and review of laboratory results Abnormal [facility] Osmolality Calc [Osmolality] 297 [facility] Potassium [Moles/Vol] 3.8 mmol/L 3.5 - 5.0 mmol/L [facility] Sodium [Moles/Vol] 139 mmol/L 135 - 145 mmol/L [facility] Urea nitrogen [Mass/Vol] 17 mg/dL 7 - 25 mg/dL [facility] Urea nitrogen/Creatinine [Mass ratio] 22 mg/mg [facility] GLUCOSE POCon 07-13-2022 Glucose [Mass/Vol] 221 mg/dL High 70 - 99 mg/dL [facility] Interpretation and review of laboratory results Abnormal [facility] POC Sample Type CAPBL [facility] Test performed at address of the patient encounter. [facility] Glucose [Mass/Vol] 266 mg/dL High 70 - 99 mg/dL [facility] Interpretation and review of laboratory results Abnormal [facility] POC Sample Type CAPBL [facility] Test performed at address of the patient encounter. [facility] Glucose [Mass/Vol] 159 mg/dL High 70 - 99 mg/dL [facility] Interpretation and review of laboratory results Abnormal [facility] POC Sample Type CAPBL [facility] Test performed at address of the patient encounter. [facility] MAGNESIUMon 07-13-2022 Magnesium [Mass/Vol] 1.7 mg/dL 1.6 - 2 .6 mg/dL [facility] No Panel Informationon 07-13 Interpretation and review of laboratory results Normal [facility] PHOSPHATE, INORGANICon 07-13 Phosphate [Mass/Vol] 3.5 mg/dL 2.2 - 4 .6 mg/dL [facility] PREALBUMINon 07-13-2022 Prealbumin [Mass/Vol] 29 mg/dL 17 - 3 4 mg/dL [facility] ABORH TYPE RECONFIRMATIONon 07-12-2022 ABO/RH(D) TYPE Positive [facility] CONTINUOUS CARDIAC MONITORIN G STRIPon 07-12-2022 [facility] CONTINUOUS CARDIAC MONITORIN G STRIPOrdered By: Unassigned Pacs on 07-12-2022 [facility] Work Phone: GLUCOSE POCon 07-12-2022 Glucose [Mass/Vol] 159 mg/dL High 70 - 99 mg/dL [facility] Interpretation and review of laboratory results Abnormal [facility] POC Sample Type CAPBL [facility] Test performed at address of the patient encounter. [facility] Glucose [Mass/Vol] 187 mg/dL High 70 - 99 mg/dL [facility] Interpretation and review of laboratory results Abnormal [facility] POC Sample Type CAPBL [facility] Test performed at address of the patient encounter. [facility] Glucose [Mass/Vol] 191 mg/dL High 70 - 99 mg/dL [facility] Interpretation and review of laboratory results Abnormal [facility] POC Sample Type CAPBL [facility] Test performed at address of the patient encounter. [facility] Glucose [Mass/Vol] 223 mg/dL High 70 - 99 mg/dL [facility] Interpretation and review of laboratory results Abnormal [facility] POC Sample Type CAPBL [facility] Test performed at address of the patient encounter. [facility] Glucose [Mass/Vol] 204 mg/dL High 70 - 99 mg/dL [facility] Interpretation and review of laboratory results Abnormal [facility] POC Sample Type CAPBL [facility] Test performed at address of the patient encounter. [facility] Glucose [Mass/Vol] 169 mg/dL High 70 - 99 mg/dL [facility] Interpretation and review of laboratory results Abnormal [facility] POC Sample Type CAPBL [facility] Test performed at address of the patient encounter. [facility] Glucose [Mass/Vol] 144 mg/dL High 70 - 99 mg/dL [facility] Interpretation and review of laboratory results Abnormal [facility] POC Sample Type VENO [facility] Test performed at address of the patient encounter. [facility] XR Abdomen Single viewon IMPRESSION: Distal tip of the Dobbhoff tube in the distal stomach. OLOGY EXAM: XR ABDOMEN 1 V IEW PORTABLE, 07/12/2022 12:29 PM COMPARISON: No prior abdominal radiographs available for comparison. CLINICAL INDICATIONS: confirm dht placement FINDINGS: The distal tip of the Dobbhoff tube is identified in the distal stomach. No gross free air is identified or significant visceromegaly. The mid to lower pelvis was excluded. Small densities projecting in the region of the kidneys likely representing renal stones, also visualized in the upper abdominal images of the chest CT of July 03, 2022. The bowel gas pattern is nonobstructive. The lower pelvis was excluded. Degenerative changes are identified in the spine. RADIOLOGY Kamila Guerrero MD - 07/12/2022 EXAM: XR ABDOMEN 1 VIEW PORTABLE, 07/12/2022 12:29 PM COMPARISON: No prior abdominal radiographs available for comparison. CLINICAL INDICATIONS: confirm dht placement FINDINGS: The distal tip of the Dobbhoff tube is identified in the distal stomach. No gross free air is identified or significant visceromegaly. The mid to lower pelvis was excluded. Small densities projecting in the region of the kidneys likely representing renal stones, also visualized in the upper abdominal images of the chest CT of July 03, 2022. The bowel gas pattern is nonobstructive. The lower pelvis was excluded. Degenerative changes are identified in the spine. IMPRESSION IMPRESSION: Distal tip of the Dobbhoff tube in the distal stomach. [facility] Radiology Study observation (narrative) [facility] XR Abdomen Single viewOrdere d By: Kamila Guerrero on 07-12-2022 [facility] Work Phone: [phone] CBC AND ELECTRONIC DIFFon Basophils (Bld) [#/Vol] 0.04 10*3/uL 0.00 - 0.15 K/uL [facility] Basophils/100 WBC (Bld) 0.9 % [facility] Differential cell count method Nom (Bld) Electronic Differential [facility] Eosinophils (Bld) [#/Vol] 0.15 10*3/uL 0.00 - 0.42 K/uL [facility] Eosinophils/100 WBC (Bld) 3.3 % [facility] Erythrocyte distribution width (RBC) [Ratio] 13.2 % 10.8 - 14.9 % [facility] Hematocrit (Bld) [Volume fraction] 42.9 % 34.9 - 44.3 % [facility] Hemoglobin (Bld) [Mass/Vol] 13.7 g/dL 11.4 - 15.2 g/dL [facility] Immature granulocytes (Bld) [#/Vol] 10*3/uL <=0.08 K/uL [facility] Immature granulocytes/100 WBC (Bld) 0.2 % [facility] Lymphocytes (Bld) [#/Vol] 1.29 10*3/uL 1.16 - 3.51 K/uL [facility] Lymphocytes/100 WBC (Bld) 28.2 % [facility] MCH (RBC) [Entitic mass] 29.1 pg 25.9 - 33.9 pg [facility] MCHC (RBC) [Mass/Vol] 31.9 g/dL 31.4 - 35.9 g/dL [facility] MCV (RBC) [Entitic vol] 91.1 fL 79.6 - 97.7 fL [facility] Monocytes (Bld) [#/Vol] 0.54 10*3/uL 0.22 - 0.87 K/uL [facility] Monocytes/100 WBC (Bld) 11.8 % [facility] Neutrophils (Bld) [#/Vol] 2.55 10*3/uL 1.64 - 7.28 K/uL [facility] Nucleated RBC/100 WBC (Bld) [Ratio] 0.0 % <=0.2 /100 WBC [facility] Platelet mean volume (Bld) [Entitic vol] 10.4 fL 8.5 - 12.2 fL [facility] Platelets (Bld) [#/Vol] 203 10*3/uL 150 - 393 K/uL [facility] RBC (Bld) [#/Vol] 4.71 10*6/uL [facility] Segmented neutrophils/100 WBC (Bld) 55.6 % [facility] WBC (Bld) [#/Vol] 4.58 10*3/uL 3.99 - 11. 19 K/uL [facility] CHEM 6 (LYTES, BUN CREA)on 0 07-03-2022 Anion gap [Moles/Vol] 11 mmol/L 7 - 17 mmol/L [facility] Chloride [Moles/Vol] 100 mmol/L 98 - 10 8 mmol/L [facility] CO2 [Moles/Vol] 33 mmol/L High 21 - 31 mmol/L [facility] Creatinine [Mass/Vol] 0.85 mg/dL 0.50 - 1.20 mg/dL [facility] GFR/1.73 sq M.predicted CKD-EPI (S/P/Bld) [Vol rate/Area] 76 >=60 mL/min/1.73m 2 [facility] Comment on above: Reported eGFR is bas ed on the CKD-EPI 2020 equation using creatinine, age, and sex. Interpretation and review of laboratory results Abnormal [facility] Potassium [Moles/Vol] 4.2 mmol/L 3.5 - 5.0 mmol/L [facility] Sodium [Moles/Vol] 140 mmol/L 135 - 145 mmol/L [facility] Urea nitrogen [Mass/Vol] 18 mg/dL 7 - 25 mg/dL [facility] Urea nitrogen/Creatinine [Mass ratio] 21 mg/mg [facility] TYPE AND SCREEN - PREADMISSI ONon 07-03-2022 ABO/RH(D) TYPE Positive [facility] Absolute lymphocyte counton 05-23-2022 Lymphocytes Auto (Unsp spec) [#/Vol] 1.58 10*3/uL 0.83-4.51 [facility] Work Phone: Basophil percentageon 2021 Basophils/100 WBC (Bld) 0.8 % 0-1 [facility] Work Phone: Bilirubin [Mass/Vol] 0.40 mg/dL 0.20-1.00 [facility] Work Phone: Comment on above: For patients on eltr ombopag therapy, use of Dimension [place] TBIL is not recommended. Chloride [Moles/Vol] 104 mmol/L 98-107 [facility] Work Phone: Cholesterol [Mass/Vol] 126 mg/dL <200 [facility] Work Phone: Comment on above: <200 mg/dL Desirable 200-240 mg/dL Borderline >240 mg/dL High Risk Eosinophils/100 WBC (Bld) 3.0 % 0-5 [facility] Work Phone: Glucose [Mass/Vol] 208 mg/dL 74-106 [facility] Work Phone: Comment on above: Glucose result great er than or equal to 200 mg/dLsuggests DIABETES MELLITUS per A.D.A. criteria. Neutrophils (Bld) [#/Vol] 3.5 10*3/uL 2.0-7.7 [facility] Work Phone: Neutrophils/100 WBC (Bld) 58.9 % 47-70 [facility] Work Phone: [phone] Potassium [Moles/Vol] 4.1 mmol/L 3.5-5.1 [facility] Work Phone: [phone] Protein [Mass/Vol] 7.7 g/dL 6.4-8.2 [facility] Work Phone: [phone] Sodium [Moles/Vol] 139 mmol/L 136-145 [facility] Work Phone: [phone] Triglyceride [Mass/Vol] 79 mg/dL <199 [facility] Work Phone: [phone] Comment on above: The drugs N-Acetylcy steine and Metamizole may falsely depress this assay.Serum Triglycerides Reference Interval Normal <150 mg/dL Borderline high 150 - 199 mg/dL High 200 - 499 mg/dL Very High > or = 500 mg/dL WBC (Bld) [#/Vol] 6.0 10*3/uL 4.4-11.0 [facility] Work Phone: [phone] Blood erythrocytes count (nu mber/volume)on 05-23-2022 RBC (Bld) [#/Vol] 4.73 10*6/uL 4.2-5.4 [facility] Work Phone: [phone] Blood hemoglobin measurement (mass/volume)on 05-23-2022 Hemoglobin (Bld) [Mass/Vol] 13.8 g/dL 12.0-15.0 [facility] Work Phone: [phone] Blood lymphocytes/100 leukoc yteson 05-23-2022 Lymphocytes/100 WBC (Bld) 26.5 % 19-41 [facility] Work Phone: [phone] Blood monocytes/100 leukocyt eson 05-23-2022 Monocytes/100 WBC (Bld) 10.6 % 0-10 [facility] Work Phone: [phone] Blood platelet mean volumeon 05-23-2022 Platelet mean volume (Bld) [Entitic vol] 10.0 fL 6.2-12.0 [facility] Work Phone: [phone] Determination of erythrocyte mean corpuscular volume (MCV)on 05-23-2022 MCV (RBC) [Entitic vol] 92.4 fL 81-99 [facility] Work Phone: [phone] Hematocrit Auto (Bld) [Volum e fraction]on 05-23-2022 Hematocrit (Bld) [Volume fraction] 43.7 % 37-47 [facility] Work Phone: [phone] Laboratory - Chemistry and C hemistry - challengeon 05-23-2022 ALP [Catalytic activity/Vol] 80 U/L 45-117 [facility] Work Phone: [phone] ALT [Catalytic activity/Vol] 40 U/L 13-56 [facility] Work Phone: [phone] CO2 [Moles/Vol] 29.0 mmol/L 21.0-32.0 [facility] Work Phone: [phone] Free T4 [Mass/Vol] 1.07 ng/dL 0.76-1.46 [facility] Work Phone: [phone] Globulin (S) [Mass/Vol] 4.0 g/dL 2.2-4.2 [facility] Work Phone: [phone] Magnesium [Mass/Vol] 1.8 mg/dL 1.6-2.6 [facility] Work Phone: [phone] Urea nitrogen/Creatinine [Mass ratio] 17.3 mg/mg 10-20 [facility] Work Phone: [phone] Laboratory - Hematology and Cell countson 05-23-2022 Erythrocyte distribution width (RBC) [Entitic vol] 43.7 fL 35.1-43.9 [facility] Work Phone: [phone] Erythrocyte distribution width (RBC) [Ratio] 12.9 % 11.6-14.6 [facility] Work Phone: [phone] Immature granulocytes/100 WBC (Bld) 0.200 % 0.0-0.9 [facility] Work Phone: [phone] Comment on above: IG% - Immature Granu locytes (promyelocytes, myelocytes and metamyelocytes) > 1% indicates that a LEFT SHIFT is Present. MCH (RBC) [Entitic mass] 29.2 pg 27.0-32.0 [facility] Work Phone: Nucleated RBC/100 WBC (Bld) [Ratio] 0 % 0-5 [facility] Work Phone: [phone] MCHC Auto (RBC) [Mass/Vol]on 05-23-2022 MCHC (RBC) [Mass/Vol] 31.6 g/dL 32-36 [facility] Work Phone: No Panel Informationon 05-23 Estimated GFR (MDRD) Amer 73 mL/min >60 [facility] Work Phone: Comment on above: GFR Calc Estimated GFR (MDRD) Non-Af Amer 60 mL/min >60 [facility] Work Phone: Comment on above: Non- GFR Calc Thyroid Stimulating Hormone (TSH) 2.43 uIU/mL 0.358-3.74 [facility] Work Phone: [phone] Urine Microalbumin/Creatinine Ratio 9.5 mg/g CRE <30 [facility] Work Phone: [phone] Vitamin D 25-Hydroxy 66.7 ng/mL [facility] Work Phone: [phone] Comment on above: Vitamin D 25(OH) Sta tus Range Deficiency <20 ng/mL (50nmol/L) Insufficiency 20 - 30 ng/mL (50 - 75 nmol/L) Sufficiency 30 - 100 ng/mL (75 - 250 nmol/L) Toxicity >100 ng/mL (>250 nmol/L) Platelets bldon 05-23-2022 Platelets (Bld) [#/Vol] 237 10*3/uL 150-450 [facility] Work Phone: [phone] Serum or plasma albumin jackson urement (mass/volume)on 05-23-2022 Albumin [Mass/Vol] 3.7 g/dL 3.2-5.0 [facility] Work Phone: [phone] Serum or plasma albumin/glob ulin mass ratioon 05-23-2022 Albumin/Globulin [Mass ratio] 0.9 {ratio} 0.9-2.4 [facility] Work Phone: Serum or plasma calcium jackson urement (mass/volume)on 05-23-2022 Calcium [Mass/Vol] 9.4 mg/dL 8.5-10.1 [facility] Work Phone: Serum or plasma cholesterol in HDL measurement (mass/volume)on 05-23-2022 Cholesterol in HDL [Mass/Vol] 57 mg/dL >40 [facility] Work Phone: Comment on above: The drugs N-Acetylcy steine and Metamizole may falsely depress this assay. Reference Range HDL <40 mg/dL Low HDL Cholesterol HDL >or= 60 mg/dL High HDL Cholesterol Serum or plasma cholesterol in VLDL measurement (mass/volume)on 05-23-2022 Cholesterol in VLDL [Mass/Vol] 16 mg/dL 5-40 [facility] Work Phone: Serum or plasma creatinine m easurement (mass/volume)on 05-23-2022 Creatinine [Mass/Vol] 0.98 mg/dL 0.55-1.02 [facility] Work Phone: Comment on above: The validity of the calculated GFR & GFRAA in patients over 70 years has not been determined. Clinical correlation is essential. Serum or plasma low density lipoprotein (LDL) cholesterol measurement (mass/volume)on 05-23-2022 Cholesterol in LDL [Mass/Vol] 53 mg/dL 0-130 [facility] Work Phone: Serum or plasma urea nitroge n measurement (mass/volume)on 05-23-2022 Urea nitrogen [Mass/Vol] 17 mg/dL 7-18 [facility] Work Phone: Serum or plasma uric acid me asurement (mass/volume)on 05-23-2022 Urate [Mass/Vol] 2.8 mg/dL 2.6-6.0 [facility] Work Phone: Comment on above: The drugs N-Acetylcy steine and Metamizole may falsely depress this assay. Thin prep Papanicolaou smear with manual screeningon 05-23-2022 Thin prep Papanicolaou smear with manual screening 33 U/L 15-37 [facility] Work Phone: Thin prep Papanicolaou smear with manual screening 6 5-15 [facility] Work Phone: [phone] Thin prep Papanicolaou smear with manual screening 10.8 mg/L NO RANGE EST. [facility] Work Phone: [phone] Urine creatinine measurement (mass/volume)on 05-23-2022 Creatinine (U) [Mass/Vol] 114.00 mg/dL NO RANGE EST. [facility] Work Phone: [phone] Whole blood hemoglobin A1c/t otal hemoglobin ratio (mass fraction)on 05-23-2022 HbA1c (Bld) [Mass fraction] 7.2 % 3.8-5.6 [facility] Work Phone: [phone] Comment on above: Normal < 5.7 % Predi abetic 5.7 - 6.4 % Diabetic >or= 6.5 % Please note range changes. Absolute lymphocyte counton 01-15-2022 Lymphocytes Auto (Unsp spec) [#/Vol] 1.70 10*3/uL 0.83-4.51 [facility] Work Phone: Basophil percentageon 2021 Basophils/100 WBC (Bld) 0.6 % 0-1 [facility] Work Phone: [phone] Bilirubin [Mass/Vol] 0.30 mg/dL 0.20-1.00 [facility] Work Phone: [phone] Comment on above: For patients on eltr ombopag therapy, use of Dimension [place] TBIL is not recommended. Chloride [Moles/Vol] 102 mmol/L 98-107 [facility] Work Phone: [phone] Cholesterol [Mass/Vol] 138 mg/dL <200 [facility] Work Phone: [phone] Comment on above: <200 mg/dL Desirable 200-240 mg/dL Borderline >240 mg/dL High Risk Eosinophils/100 WBC (Bld) 2.6 % 0-5 [facility] Work Phone: Glucose [Mass/Vol] 208 mg/dL 74-106 [facility] Work Phone: Comment on above: Glucose result great er than or equal to 200 mg/dLsuggests DIABETES MELLITUS per A.D.A. criteria. Neutrophils (Bld) [#/Vol] 4.1 10*3/uL 2.0-7.7 [facility] Work Phone: Neutrophils/100 WBC (Bld) 62.1 % 47-70 [facility] Work Phone: [phone] Potassium [Moles/Vol] 4.1 mmol/L 3.5-5.1 [facility]: [phone] Protein [Mass/Vol] 7.6 g/dL 6.4-8.2 [facility] Work Phone: [phone] Sodium [Moles/Vol] 137 mmol/L 136-145 [facility] Work Phone: [phone] Triglyceride [Mass/Vol] 88 mg/dL [facility] Work Phone: Comment on above: The drugs N-Acetylcy steine and Metamizole may falsely depress this assay.Serum Triglycerides Reference Interval Normal <150 mg/dL Borderline high 150 - 199 mg/dL High 200 - 499 mg/dL Very High > or = 500 mg/dL WBC (Bld) [#/Vol] 6.6 10*3/uL 4.4-11.0 [facility] Work Phone: [phone] Blood erythrocytes count (nu mber/volume)on 01-15-2022 RBC (Bld) [#/Vol] 4.66 10*6/uL 4.2-5.4 [facility] Work Phone: [phone] Blood hemoglobin measurement (mass/volume)on 01-15-2022 Hemoglobin (Bld) [Mass/Vol] 13.8 g/dL 12.0-15.0 [facility] Work Phone: Blood lymphocytes/100 leukoc yteson 01-15-2022 Lymphocytes/100 WBC (Bld) 25.8 % 19-41 [facility] Work Phone: Blood monocytes/100 leukocyt eson 01-15-2022 Monocytes/100 WBC (Bld) 8.6 % 0-10 [facility] Work Phone: Blood platelet mean volumeon 01-15-2022 Platelet mean volume (Bld) [Entitic vol] 10.2 fL 6.2-12.0 [facility] Work Phone: Determination of erythrocyte mean corpuscular volume (MCV)on 01-15-2022 MCV (RBC) [Entitic vol] 90.8 fL 81-99 [facility] Work Phone: Hematocrit Auto (Bld) [Volum e fraction]on 01-15-2022 Hematocrit (Bld) [Volume fraction] 42.3 % 37-47 [facility] Work Phone: Laboratory - Chemistry and C hemistry - challengeon 01-15-2022 ALP [Catalytic activity/Vol] 80 U/L 45-117 [facility] Work Phone: ALT [Catalytic activity/Vol] 36 U/L 13-56 [facility] Work Phone: CO2 [Moles/Vol] 29.0 mmol/L 21.0-32.0 [facility] Work Phone: Free T4 [Mass/Vol] 0.96 ng/dL 0.76-1.46 [facility] Work Phone: Globulin (S) [Mass/Vol] 3.9 g/dL 2.2-4.2 [facility] Work Phone: Magnesium [Mass/Vol] 1.8 mg/dL 1.6-2.6 [facility] Work Phone: Urea nitrogen/Creatinine [Mass ratio] 19.3 mg/mg 10-20 [facility] Work Phone: Laboratory - Hematology and Cell countson 01-15-2022 Erythrocyte distribution width (RBC) [Entitic vol] 43.1 fL 35.1-43.9 [facility] Work Phone: [phone] Erythrocyte distribution width (RBC) [Ratio] 13.2 % 11.6-14.6 [facility] Work Phone: [phone] Immature granulocytes/100 WBC (Bld) 0.300 % 0.0-0.9 [facility] Work Phone: [phone] Comment on above: IG% - Immature Granu locytes (promyelocytes, myelocytes and metamyelocytes) > 1% indicates that a LEFT SHIFT is Present. MCH (RBC) [Entitic mass] 29.6 pg 27.0-32.0 [facility] Work Phone: [phone] Nucleated RBC/100 WBC (Bld) [Ratio] 0 % 0-5 [facility] Work Phone: [phone] MCHC Auto (RBC) [Mass/Vol]on 01-15-2022 MCHC (RBC) [Mass/Vol] 32.6 g/dL 32-36 [facility] Work Phone: No Panel Informationon 01-15 Estimated GFR (MDRD) Amer 73 mL/min >60 [facility] Work Phone: [phone] Comment on above: GFR Calc Estimated GFR (MDRD) Non-Af Amer 60 mL/min >60 [facility] Work Phone: [phone] Comment on above: Non- GFR Calc Thyroid Stimulating Hormone (TSH) 1.76 uIU/mL 0.358-3.74 [facility] Work Phone: [phone] Urine Microalbumin/Creatinine Ratio 6.6 mg/g CRE <30 [facility] Work Phone: [phone] Vitamin D 25-Hydroxy 50.9 ng/mL [facility] Work Phone: [phone] Comment on above: Vitamin D 25(OH) Sta tus Range Deficiency <20 ng/mL (50nmol/L) Insufficiency 20 - 30 ng/mL (50 - 75 nmol/L) Sufficiency 30 - 100 ng/mL (75 - 250 nmol/L) Toxicity >100 ng/mL (>250 nmol/L) Platelets bldon 01-15-2022 Platelets (Bld) [#/Vol] 226 10*3/uL 150-450 [facility] Work Phone: Serum or plasma albumin jackson urement (mass/volume)on 01-15-2022 Albumin [Mass/Vol] 3.7 g/dL 3.2-5.0 [facility] Work Phone: Serum or plasma albumin/glob ulin mass ratioon 01-15-2022 Albumin/Globulin [Mass ratio] 0.9 {ratio} 0.9-2.4 [facility] Work Phone: Serum or plasma calcium jackson urement (mass/volume)on 01-15-2022 Calcium [Mass/Vol] 8.9 mg/dL 8.5-10.1 [facility] Work Phone: Serum or plasma cholesterol in HDL measurement (mass/volume)on 01-15-2022 Cholesterol in HDL [Mass/Vol] 58 mg/dL [facility] Work Phone: Comment on above: The drugs N-Acetylcy steine and Metamizole may falsely depress this assay. Reference Range HDL <40 mg/dL Low HDL Cholesterol HDL >or= 60 mg/dL High HDL Cholesterol Serum or plasma cholesterol in VLDL measurement (mass/volume)on 01-15-2022 Cholesterol in VLDL [Mass/Vol] 18 mg/dL 5-40 [facility] Work Phone: Serum or plasma creatinine m easurement (mass/volume)on 01-15-2022 Creatinine [Mass/Vol] 0.99 mg/dL 0.55-1.02 [facility] Work Phone: Comment on above: The validity of the calculated GFR & GFRAA in patients over 70 years has not been determined. Clinical correlation is essential. Serum or plasma low density lipoprotein (LDL) cholesterol measurement (mass/volume)on 01-15-2022 Cholesterol in LDL [Mass/Vol] 62 mg/dL 0-130 [facility] Work Phone: Serum or plasma urea nitroge n measurement (mass/volume)on 01-15-2022 Urea nitrogen [Mass/Vol] 19 mg/dL 7-18 [facility] Work Phone: Thin prep Papanicolaou smear with manual screeningon 01-15-2022 Thin prep Papanicolaou smear with manual screening 22 U/L 15-37 [facility] Work Phone: Thin prep Papanicolaou smear with manual screening 6 5-15 [facility] Work Phone: Thin prep Papanicolaou smear with manual screening 7.2 mg/L NO RANGE EST. [facility] Work Phone: Urine creatinine measurement (mass/volume)on 01-15-2022 Creatinine (U) [Mass/Vol] 109.00 mg/dL NO RANGE EST. [facility] Work Phone: Whole blood hemoglobin A1c/t otal hemoglobin ratio (mass fraction)on 01-15-2022 HbA1c (Bld) [Mass fraction] 6.9 % 3.8-5.6 [facility] Work Phone: Comment on above: Normal < 5.7 % Predi abetic 5.7 - 6.4 % Diabetic >or= 6.5 % Please note range changes. Clinical Summary: HMSPatient IDon 06-18-2018 OOP Invalid Interpretation Code [facility] Work Phone: Clinical Summary: Scanned Hi story Summaryon 06-18-2018 data entered by patient, alcohol (ethanol or ETOH) use No Invalid Interpretation Code [facility] Work Phone: Data entered by patient, allergy list Sulfa drugs Invalid Interpretation Code [facility] Work Phone: data entered by patient, drug (of abuse) use No Invalid Interpretation Code [facility] Work Phone: data entered by patient, Employer Name Employed Invalid Interpretation Code [facility] Work Phone: data entered by patient, exercise history No Invalid Interpretation Code [facility] Work Phone: Data entered by patient, history of past surgeries sectionKnee replacement - revisionKnee replacement - partial Invalid Interpretation Code [facility] Work Phone: data entered by patient, past medical history Difficulty with anesthesiaDiabetes - insulin dependentIrritable bowel syndrome Invalid Interpretation Code [facility] Work Phone: data entered by patient, social history, current smoker never smoker Invalid Interpretation Code [facility] Work Phone: data entered by patient, social history, marital status Invalid Interpretation Code [facility] Work Phone: father of patient is alive or Invalid Interpretation Code [facility] Work Phone: Housing Type: apartment, house, snf, trailer, none House Invalid Interpretation Code [facility] Work Phone: housing unit size (asthma environmental history, housing) (from single family to don't know) 3+ Floors Invalid Interpretation Code [facility] Work Phone: mother of patient is alive or Alive Invalid Interpretation Code [facility] Work Phone: Number of dependent children No Invalid Interpretation Code [facility] Work Phone: Clinical Summary: Jyoti ARROYO S Summaryon 06-18-2018 endocrine ROS Complains Invalid Interpretation Code [facility] Work Phone: endocrine system, review of, comments Diabetes Invalid Interpretation Code [facility] Work Phone: Gastrointestional review of systems, comment Diarrhea Invalid Interpretation Code [facility] Work Phone: genitourinary review of systems, E&M Denies Invalid Interpretation Code [facility] Work Phone: Lymphocytes Auto #/vol (Bld) Denies Invalid Interpretation Code [facility] Work Phone: ROS cardiovascular E&M Denies Invalid Interpretation Code [facility] Work Phone: ROS ENT E&M Denies Invalid Interpretation Code [facility] Work Phone: ROS gastrointestinal E&M Complains Invalid Interpretation Code [facility] Work Phone: ROS general E&M Denies Invalid Interpretation Code [facility] Work Phone: ROS musculoskeletal E&M Denies Invalid Interpretation Code [facility] Work Phone: ROS neurological E&M Denies Invalid Interpretation Code [facility] Work Phone: ROS psychiatric E&M Denies Invalid Interpretation Code [facility] Work Phone: ROS pulmonary E&M Denies Invalid Interpretation Code [facility] Work Phone: ROS skin E&M Denies Invalid Interpretation Code [facility] Work Phone: Office Visit: New/Est - 1st visit with physician, Rm: 15on 06-18-2018 NEGATED: Highlighted rowProtein mass conc Done Invalid Interpretation Code [facility] Work Phone: NEGATED: Highlighted rowTobacco smoking status NHIS Tobacco smoking status NHIS Invalid Interpretation Code [facility] Work Phone: NEGATED: Highlighted rowxray history of the shoulder on 04/16/2018 at [facility] Invalid Interpretation Code [facility] Work Phone: Bronchoalveolar lavage cultu re with Gram stain Respiratory microbial culture or Staphylococcus aureus isolated. [facility] Work Phone: Gram stain for investigation of transfusion reaction Microscopic observation Gram stain Nom (Unsp spec) [facility] Work Phone: Vital Signs Date Time Vital Sign Value Performing Clinician Facility 06-15-2025 13:00-0400 Body mass index (BMI) [Ratio] 33.42 kg/m2 Ricky Bingham MD Work Phone: [facility] 06-15-2025 13:00-0400 Body temperature 97.2 [degF] Ricky Bingham MD Work Phone: [facility] 06-15-2025 13:00-0400 Body weight 82.87 kg Ricky Bingham MD Work Phone: [facility] 06-15-2025 13:00-0400 Diastolic blood pressure 70 mm[Hg] Ricky Bingham MD Work Phone: [facility] 06-15-2025 13:00-0400 Heart rate 85 /min Ricky Bingham MD Work Phone: [facility] 06-15-2025 13:00-0400 Respiratory rate 18 /min Ricky Bingham MD Work Phone: [facility] 06-15-2025 13:00-0400 SaO2% (BldA) [Mass fraction] 98 % Ricky Bingham MD Work Phone: [facility] 06-15-2025 13:00-0400 Systolic blood pressure 133 mm[Hg] Ricky Bingham MD Work Phone: [facility] 01-26-2025 13:31-0400 Body temperature 96.8 [degF] Dr. Duong Durham MD Work Phone: [facility] 01-26-2025 13:31-0400 Diastolic blood pressure 64 mm[Hg] Dr. Duong Durham MD Work Phone: [facility] 01-26-2025 13:31-0400 Heart rate 70 /min Dr. Duong Durham MD Work Phone: [facility] 01-26-2025 13:31-0400 Respiratory rate 16 /min Dr. Duong Durahm MD Work Phone: [facility] 01-26-2025 13:31-0400 SaO2% (BldA) [Mass fraction] 98 % Dr. Duong Durham MD Work Phone: [facility] 01-26-2025 13:31-0400 Systolic blood pressure 107 mm[Hg] Dr. Duong Durham MD Work Phone: [facility] 01-26-2025 12:17-0400 Body height 157.[address] Duong Durham MD Work Phone: [facility] 01-26-2025 12:17-0400 Body mass index (BMI) [Ratio] 33.8 kg/m2 Dr. Duong Durham MD Work Phone: [facility] 01-26-2025 12:17-0400 Body weight 83.[address] Duong Durham MD Work Phone: [facility] 12-14-2024 14:25-0500 Body mass index (BMI) [Ratio] 33.47 kg/m2 Heather Sánchez PA-C Work Phone: [facility] 12-14-2024 14:25-0500 Body temperature 97.5 [degF] Heather Sánchez PA-C Work Phone: [facility] 12-14-2024 14:25-0500 Body weight 83.01 kg Heather Sánchez PA-C Work Phone: [facility] 12-14-2024 14:25-0500 Diastolic blood pressure 56 mm[Hg] Heather Sánchez PA-C Work Phone: [facility] 12-14-2024 14:25-0500 Heart rate 93 /min Heather Sánchez PA-C Work Phone: [facility] 12-14-2024 14:25-0500 Respiratory rate 16 /min Heather Sánchez PA-C Work Phone: [facility] 12-14-2024 14:25-0500 SaO2% (BldA) [Mass fraction] 96 % Heather Sánchez PA-C Work Phone: [facility] 12-14-2024 14:25-0500 Systolic blood pressure 111 mm[Hg] Heather Sánchez PA-C Work Phone: [facility] 06-23-2024 13:31-0400 Body mass index (BMI) [Ratio] 35.28 kg/m2 Ricky Bingham MD Work Phone: [facility] 06-23-2024 13:31-0400 Body temperature 97.9 [degF] Ricky Bingham MD Work Phone: [facility] 06-23-2024 13:31-0400 Body weight 87.5 kg Ricky Bingham MD Work Phone: [facility] 06-23-2024 13:31-0400 Diastolic blood pressure 61 mm[Hg] Ricky Bingham MD Work Phone: [facility] 06-23-2024 13:31-0400 Heart rate 75 /min Ricky Bingham MD Work Phone: [facility] 06-23-2024 13:31-0400 Respiratory rate 16 /min Ricky Bingham MD Work Phone: [facility] 06-23-2024 13:31-0400 SaO2% (BldA) [Mass fraction] 94 % Ricky Bingham MD Work Phone: [facility] 06-23-2024 13:31-0400 Systolic blood pressure 136 mm[Hg] Ricky Bingham MD Work Phone: [facility] 01-27-2024 14:59-0400 Body height 157.[address] Duong Durham Work Phone: [facility] 01-27-2024 14:59-0400 Body mass index (BMI) [Ratio] 34.9 kg/m2 Dr. Duong Durham Work Phone: [facility] 01-27-2024 14:59-0400 Body weight 86.[address] Duong Durham Work Phone: [facility] 01-27-2024 14:59-0400 Diastolic blood pressure 73 mm[Hg] Dr. Duong Durham Work Phone: [facility] 01-27-2024 14:59-0400 Heart rate 78 /min Dr. Duong Durham Work Phone: [facility] 01-27-2024 14:59-0400 SaO2% (BldA) [Mass fraction] 94 % Dr. Duong Durham Work Phone: [facility] 01-27-2024 14:59-0400 Systolic blood pressure 133 mm[Hg] Dr. Duong Durham Work Phone: [facility] 12-30-2023 13:55-0400 Body mass index (BMI) [Ratio] 35.46 kg/m2 Heather Sánchez PAC Work Phone: [facility] 12-30-2023 13:55-0400 Body temperature 97.9 [degF] Heather Sánchez PAC Work Phone: [facility] 12-30-2023 13:55-0400 Body weight 87.95 kg Heather Sánchez PAC Work Phone: [facility] 12-30-2023 13:55-0400 Diastolic blood pressure 67 mm[Hg] Heather Sánchez PAC Work Phone: [facility] 12-30-2023 13:55-0400 Heart rate 72 /min Heather Sánchez PAC Work Phone: [facility] 12-30-2023 13:55-0400 Respiratory rate 20 /min Heather Sánchez PAC Work Phone: [facility] 12-30-2023 13:55-0400 SaO2% (BldA) [Mass fraction] 95 % Heather Sánchez PAC Work Phone: [facility] Comment on above: room air 12-30-2023 13:55-0400 Systolic blood pressure 141 mm[Hg] Heather Sánchez PAC Work Phone: [facility] 12-22-2023 07:10-0400 Body temperature 97.2 [degF] Dr. Duong Durham Work Phone: [facility] 12-22-2023 07:10-0400 Diastolic blood pressure 62 mm[Hg] Dr. Duong Durham Work Phone: [facility] 12-22-2023 07:10-0400 Heart rate 68 /min Dr. Duong Durham Work Phone: [facility] 12-22-2023 07:10-0400 Respiratory rate 16 /min Dr. Duong Durham Work Phone: [facility] 12-22-2023 07:10-0400 SaO2% (BldA) [Mass fraction] 95 % Dr. Duong Durham Work Phone: [facility] 12-22-2023 07:10-0400 Systolic blood pressure 107 mm[Hg] Dr. Duong Durham Work Phone: [facility] 12-22-2023 05:45-0400 Body height 157.[address] Duong Durham Work Phone: [facility] 12-22-2023 05:45-0400 Body mass index (BMI) [Ratio] 35.8 kg/m2 Dr. Duong Durham Work Phone: [facility] 12-22-2023 05:45-0400 Body weight 88.[address] Duong Durham Work Phone: [facility] 10-02-2023 09:07-0500 Body height 157.[address] Duong Durham Work Phone: [facility] 10-02-2023 09:07-0500 Body mass index (BMI) [Ratio] 35.1 kg/m2 Dr. Duong Durham Work Phone: [facility] 10-02-2023 09:07-0500 Body temperature 97.8 [degF] Dr. Duong Durham Work Phone: [facility] 10-02-2023 09:07-0500 Body weight 87.[address] Duong Durham Work Phone: [facility] 10-02-2023 09:07-0500 Diastolic blood pressure 64 mm[Hg] Dr. Duong Durham Work Phone: [facility] 10-02-2023 09:07-0500 Heart rate 96 /min Dr. Duong Durham Work Phone: [facility] 10-02-2023 09:07-0500 Respiratory rate 16 /min Dr. Duong Durham Work Phone: [facility] 10-02-2023 09:07-0500 SaO2% (BldA) [Mass fraction] 96 % Dr. Duong Durham Work Phone: [facility] 10-02-2023 09:07-0500 Systolic blood pressure 110 mm[Hg] Dr. Duong Durham Work Phone: [facility] 09-29-2023 12:51-0500 Body mass index (BMI) [Ratio] 28.9 kg/m2 Dr. Duong Durham Work Phone: [facility] 09-29-2023 12:51-0500 Body weight 71.[address] Duong Durham Work Phone: [facility] 09-29-2023 12:51-0500 Diastolic blood pressure 76 mm[Hg] Dr. Duong Durham Work Phone: [facility] 09-29-2023 12:51-0500 Heart rate 71 /min Dr. Duong Durham Work Phone: [facility] 09-29-2023 12:51-0500 SaO2% (BldA) [Mass fraction] 95 % Dr. Duong Durham Work Phone: [facility] 09-29-2023 12:51-0500 Systolic blood pressure 119 mm[Hg] Dr. Duogn Durham Work Phone: [facility] 06-25-2023 13:50-0400 Body mass index (BMI) [Ratio] 36.03 kg/m2 Ricky Bingham MD Work Phone: [facility] 06-25-2023 13:50-0400 Body temperature 97.5 [degF] Ricky Bingham MD Work Phone: [facility] 06-25-2023 13:50-0400 Body weight 89.36 kg Ricky Bingham MD Work Phone: [facility] 06-25-2023 13:50-0400 Diastolic blood pressure 58 mm[Hg] Ricky Bingham MD Work Phone: [facility] 06-25-2023 13:50-0400 Heart rate 85 /min Ricky Bingham MD Work Phone: [facility] 06-25-2023 13:50-0400 Respiratory rate 16 /min Ricky Bingham MD Work Phone: [facility] 06-25-2023 13:50-0400 SaO2% (BldA) [Mass fraction] 98 % Ricky Bingham MD Work Phone: [facility] 06-25-2023 13:50-0400 Systolic blood pressure 110 mm[Hg] Ricky Bingham MD Work Phone: [facility] 12-23-2022 08:19-0400 Body temperature 97 [degF] Dr. Duong Durham Work Phone: [facility] 12-23-2022 08:19-0400 Diastolic blood pressure 68 mm[Hg] Dr. Duong Durham Work Phone: [facility] 12-23-2022 08:19-0400 Heart rate 66 /min Dr. Duong Durham Work Phone: [facility] 12-23-2022 08:19-0400 Respiratory rate 16 /min Dr. Duong Durham Work Phone: [facility] 12-23-2022 08:19-0400 SaO2% (BldA) [Mass fraction] 97 % Dr. Duong Durham Work Phone: [facility] 12-23-2022 08:19-0400 Systolic blood pressure 108 mm[Hg] Dr. Duong Durham Work Phone: [facility] 12-23-2022 06:38-0400 Body height 157.[address] Duong Durham Work Phone: [facility] 12-23-2022 06:38-0400 Body mass index (BMI) [Ratio] 34.2 kg/m2 Dr. Duong Durham Work Phone: [facility] 12-23-2022 06:38-0400 Body weight [address] Duong Durham Work Phone: [facility] 11-20-2022 13:54-0500 Body mass index (BMI) [Ratio] 34.88 kg/m2 Heather Sánchez PA-C Work Phone: [facility] 11-20-2022 13:54-0500 Body temperature 96.21 [degF] Heather Sánchez PA-C Work Phone: [facility] 11-20-2022 13:54-0500 Body weight 86.5 kg Heather Sánchez PA-C Work Phone: [facility] 11-20-2022 13:54-0500 Diastolic blood pressure 71 mm[Hg] Heather Sánchez PA-C Work Phone: [facility] 11-20-2022 13:54-0500 Heart rate 71 /min Heather Gonzalo PA-C Work Phone: [facility] 11-20-2022 13:54-0500 Respiratory rate 16 /min Heather Dobsonan PA-C Work Phone: [facility] 11-20-2022 13:54-0500 SaO2% (BldA) [Mass fraction] 98 % Heather Gonzalo PA-C Work Phone: [facility] 11-20-2022 13:54-0500 Systolic blood pressure 130 mm[Hg] Heather Dobsonan PA-C Work Phone: [facility] 08-21-2022 14:38-0500 Body mass index (BMI) [Ratio] 34.02 kg/m2 Ricky Bingham MD Work Phone: [facility] 08-21-2022 14:38-0500 Body temperature 96.01 [degF] Ricky Bingham MD Work Phone: [facility] 08-21-2022 14:38-0500 Body weight 84.37 kg Ricky Bingham MD Work Phone: [facility] 08-21-2022 14:38-0500 Diastolic blood pressure 60 mm[Hg] Ricky Bingham MD Work Phone: [facility] 08-21-2022 14:38-0500 Heart rate 73 /min Ricky Bingham MD Work Phone: [facility] 08-21-2022 14:38-0500 Respiratory rate 18 /min Ricky Bingham MD Work Phone: [facility] 08-21-2022 14:38-0500 SaO2% (BldA) [Mass fraction] 98 % Ricky Bingham MD Work Phone: [facility] 08-21-2022 14:38-0500 Systolic blood pressure 123 mm[Hg] Ricky Bingham MD Work Phone: [facility] 07-24-2022 14:52-0400 Body mass index (BMI) [Ratio] 32.89 kg/m2 Ricky Bingham MD Work Phone: [facility] 07-24-2022 14:52-0400 Body temperature 96.49 [degF] Ricky Bingham MD Work Phone: [facility] 07-24-2022 14:52-0400 Body weight 81.56 kg Ricky Bingham MD Work Phone: [facility] 07-24-2022 14:52-0400 Diastolic blood pressure 75 mm[Hg] Ricky Bingham MD Work Phone: [facility] 07-24-2022 14:52-0400 Heart rate 84 /min Ricky Bingham MD Work Phone: [facility] 07-24-2022 14:52-0400 Respiratory rate 16 /min Ricky Bingham MD Work Phone: [facility] 07-24-2022 14:52-0400 SaO2% (BldA) [Mass fraction] 93 % Ricky Bingham MD Work Phone: [facility] 07-24-2022 14:52-0400 Systolic blood pressure 115 mm[Hg] Ricky Bingham MD Work Phone: [facility] 07-22-2022 09:38-0400 Body temperature 98.1 [degF] Noemi Ovalle MD Work Phone: [facility] 07-22-2022 09:38-0400 Diastolic blood pressure 59 mm[Hg] Noemi Ovalle MD Work Phone: [facility] 07-22-2022 09:38-0400 Heart rate 70 /min Noemi Ovalle MD Work Phone: [facility] 07-22-2022 09:38-0400 Respiratory rate 17 /min Noemi Ovalle MD Work Phone: [facility] 07-22-2022 09:38-0400 SaO2% (BldA) [Mass fraction] 97 % Noemi Ovalle MD Work Phone: [phone] [place] [address] 07-22-2022 09:38-0400 Systolic blood pressure 111 mm[Hg] Noemi Ovalle MD Work Phone: [phone] [place] [address] 07-21-2022 10:47-0400 Body height 157.5 cm Noemi Ovalle MD Work Phone: [phone] [place] [address] 07-17-2022 08:00-0400 Body temperature 98.91 [degF] Ricky Bingham MD Work Phone: [facility] 07-17-2022 08:00-0400 Diastolic blood pressure 64 mm[Hg] Ricky Bingham MD Work Phone: [facility] 07-17-2022 08:00-0400 Heart rate 66 /min Ricky Bingham MD Work Phone: [facility] 07-17-2022 08:00-0400 Respiratory rate 16 /min Ricky Bingham MD Work Phone: [facility] 07-17-2022 08:00-0400 SaO2% (BldA) [Mass fraction] 98 % Ricky Bingham MD Work Phone: [facility] 07-17-2022 08:00-0400 Systolic blood pressure 142 mm[Hg] Ricky Bingham MD Work Phone: [facility] 07-12-2022 14:25-0400 Body height 157.5 cm Ricky Bingham MD Work Phone: [facility] 07-12-2022 14:25-0400 Body mass index (BMI) [Ratio] 35.48 kg/m2 Ricky Bingham MD Work Phone: [facility] 07-12-2022 14:25-0400 Body weight 88 kg Ricky Bingham MD Work Phone: [facility] 07-03-2022 12:14-0400 Body height 162.6 cm Heather Gonzalo PA-C Work Phone: [facility] 07-03-2022 12:14-0400 Diastolic blood pressure 66 mm[Hg] Heather Gonzalo PA-C Work Phone: [facility] 07-03-2022 12:14-0400 Heart rate 71 /min Heather Gonzalo PA-C Work Phone: [facility] 07-03-2022 12:14-0400 Systolic blood pressure 125 mm[Hg] Heather Gonzalo PA-C Work Phone: [facility] 07-03-2022 09:08-0400 Body height 162.6 cm Julia Rae MD Work Phone: [facility] 07-03-2022 09:08-0400 Body mass index (BMI) [Ratio] 33.13 kg/m2 Julia Rae MD Work Phone: [facility] 07-03-2022 09:08-0400 Body temperature 97.59 [degF] Julia Rae MD Work Phone: [facility] 07-03-2022 09:08-0400 Body weight 87.54 kg Julia Rae MD Work Phone: [facility] 07-03-2022 09:08-0400 Diastolic blood pressure 74 mm[Hg] Julia Rae MD Work Phone: [facility] 07-03-2022 09:08-0400 Heart rate 68 /min Julia Rae MD Work Phone: [facility] 07-03-2022 09:08-0400 Respiratory rate 18 /min Julia Rae MD Work Phone: [facility] 07-03-2022 09:08-0400 SaO2% (BldA) [Mass fraction] 96 % Julia Rae MD Work Phone: [facility] 07-03-2022 09:08-0400 Systolic blood pressure 118 mm[Hg] Julia Rae MD Work Phone: [facility] 06-13-2022 12:44-0400 Body height 162.6 cm Ricky Bingham MD Work Phone: [facility] 06-13-2022 12:44-0400 Body mass index (BMI) [Ratio] 33.35 kg/m2 Ricky Bingham MD Work Phone: [facility] 06-13-2022 12:44-0400 Body temperature 97.5 [degF] Ricky Bingham MD Work Phone: [facility] 06-13-2022 12:44-0400 Body weight 88.13 kg Ricky Bingham MD Work Phone: [facility] 06-13-2022 12:44-0400 Diastolic blood pressure 61 mm[Hg] Ricky Bingham MD Work Phone: [facility] 06-13-2022 12:44-0400 Heart rate 67 /min Ricky Bingham MD Work Phone: [facility] 06-13-2022 12:44-0400 Respiratory rate 20 /min Ricky Bingham MD Work Phone: [facility] 06-13-2022 12:44-0400 SaO2% (BldA) [Mass fraction] 95 % Ricky Bingham MD Work Phone: [facility] 06-13-2022 12:44-0400 Systolic blood pressure 129 mm[Hg] Ricky Bingham MD Work Phone: [facility] NEGATED: Highlighted [id number] 08:07-0400 BMI (Body Mass Index) 37.63 kg/m2 [facility] Work Phone: NEGATED: Highlighted [id number] 08:07-0400 BP Diastolic 79 mm[Hg] [facility] Work Phone: NEGATED: Highlighted [id number] 08:07-0400 BP Systolic 121 mm[Hg] [facility] Work Phone: NEGATED: Highlighted [id number] 08:07-0400 Height 157.48 cm [facility] Work Phone: NEGATED: Highlighted [id number] 08:07-0400 Height 157 cm [facility] Work Phone: NEGATED: Highlighted [id number] 08:07-0400 Pulse (Heart Rate) 73 /min [facility] Work Phone: NEGATED: Highlighted [id number] 08:07-0400 Weight 92.99 kg Ashley [facility] Work Phone: NEGATED: Highlighted [id number] 08:07-0400 Weight 93 kg Ashley [facility] Work Phone: Encounters Encounter Date Encounter Type Care Provider Facility Start: 06-15-2025 End: 06-15-2025 Office outpatient visit 15 minutes Ricky Bingham MD Work Phone: Department of Otolaryngology Comment on above: Oral cancer (Primary Dx) Start: 06-15-2025 ambulatory DUONG DURHAM Facility: [facility] Start: 04-07-2025 End: 04-07-[address] Duong Durham MD Work Phone: -Laboratory Specimen Start: 04-07-2025 End: 04-07-2025 Patient encounter procedure Carri MCKEON -Laboratory Specimen Work Phone: Start: 04-06-2025 End: 04-06-2025 Patient encounter procedure Carri MCKEON -[facility] Work Phone: Start: 04-06-2025 End: 04-07-[address] Duong Durham MD Work Phone: [facility] Work Phone: Start: 03-21-2025 End: 03-21-[address] Duong Durham MD Work Phone: [facility] Work Phone: Start: 03-21-2025 End: 03-21-2025 Patient encounter procedure [facility] [employer] -Outpatient Breast Imaging Work Phone: Start: 03-21-2025 End: 03-21-2025 ambulatory [facility] Facility:[facility] Start: 03-15-2025 End: 03-15-[address] Duong Durham MD Work Phone: [facility] Work Phone: Start: 03-15-2025 End: 03-15-[address] Duong Durham MD -Laboratory [facility] Start: 03-15-2025 End: 03-15-2025 ambulatory Duong Durham Facility:[facility] Start: 02-02-2025 End: 02-02-2025 Patient encounter procedure Carri MCKEON -[facility] Work Phone: Start: 02-02-2025 End: 02-02-[address] Duong Durham MD Work Phone: [facility] Work Phone: Start: 02-02-2025 End: 02-02-2025 ambulatory Duong Durham Facility:[facility] Start: 01-26-2025 Non-patient / Non-visit Abdi Phillips nd DO -[facility] Start: 01-26-2025 End: 01-26-2025 Admission to same day surgery center Abdi Renetta DO -Endoscopy Work Phone: Start: 01-26-2025 End: 01-26-[address] Duong Durham MD Work Phone: [facility] Work Phone: Start: 12-14-2024 End: 12-14-2024 Office outpatient visit 10 minutes Heather Sánchez PA-C Work Phone: Department of Otolaryngology Comment on above: Personal history of malignant neoplasm of tongue (Primary Dx) Start: 12-14-2024 ambulatory RICKY BINGHAM Facility :[facility] Start: 11-23-2024 End: 11-23-2024 Patient encounter procedure Carri Wilson, [facility] Work Phone: Start: 11-23-2024 End: 11-23-2024 ambulatory Carri Luna Facility:[facility] Start: 08-12-2024 End: 08-12-2024 ambulatory Duong Durham Facility:[facility] Start: 07-23-2024 End: 07-23-2024 ambulatory Duong Durham Facility:[facility] Start: 07-07-2024 End: 07-07-2024 ambulatory Duong Durham Facility:[facility] Start: 06-23-2024 End: 06-23-2024 Office outpatient visit 15 minutes Ricky Bingham MD Work Phone: Department of Otolaryngology Comment on above: 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 Duong Durham Work Phone: [facility] Work Phone: Start: 01-20-2024 End: 01-20-[address] Duong Durham Work Phone: [facility] Work Phone: Start: 01-20-2024 End: 01-20-[address] Duong Durham Work Phone: [facility]-Laboratory Work Phone: Start: 12-30-2023 End: 12-30-2023 Office outpatient visit 10 minutes Heather Sánchez [facility] Work Phone: Department of Otolaryngology Comment on above: Personal history of malignant neoplasm of tongue (Primary Dx) Start: 12-22-2023 Non-patient / Non-visit Dr. Gudelia Durham Work Phone: [facility] Start: 12-22-2023 End: 12-22-2023 Admission to same day surgery center Dr. Duong Durham Work Phone: [facility]-Endoscopy Work Phone: Start: 12-22-2023 End: 12-22-[address] Duong Durham Work Phone: [facility] Work Phone: Start: 12-20-2023 End: 12-20-[address] [facility] [facility] Work Phone: Start: 12-20-2023 End: 12-20-[address] Duong Durham Work Phone: [facility]-Ultrasound, [facility] Work Phone: Start: 10-21-2023 End: 10-21-[address] Duong Durham Work Phone: [facility] Work Phone: Start: 10-21-2023 End: 10-21-[address] Duong Durham Work Phone: [facility]Laboratory Work Phone: Start: 10-17-2023 End: 10-17-[address] Duong Durham Work Phone: [facility] Work Phone: Start: 10-17-2023 End: 10-17-[address] Duong Durham Work Phone: [facility] Work Phone: Start: 10-02-2023 End: 10-02-[address] Duong Durham Work Phone: [facility] Work Phone: Start: 09-29-2023 End: 09-29-[address] Duong Durham Work Phone: 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 Duong Durham Work Phone: [facility] Work Phone: Start: 12-26-2022 End: 12-26-[address] Duong Durham Work Phone: [facility]Laboratory Start: 12-23-2022 Non-patient / Non-visit Dr. Gudelia Durham Work Phone: [facility] Start: 12-23-2022 End: 12-23-2022 Admission to same day surgery center Dr. Duong Durham Work Phone: [facility]-Endoscopy Start: 12-23-2022 End: 12-23-[address] 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 Duong Durham Work Phone: [facility] Work Phone: Start: 10-21-2022 End: 10-21-[address] Duong Durham Work Phone: [facility]-Laboratory, Specimen Start: 10-18-2022 End: 10-18-[address] Duong Durham Work Phone: [facility] Work Phone: Start: 10-18-2022 End: 10-18-[address] Duong Durham Work Phone: [facility]Laboratory Start: 10-18-2022 End: 10-18-[address] 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); History of hemorrhage of tongue Start: 07-31-2022 End: 07-31-2022 Patient encounter procedure [facility]Labor[facility], Specimen Start: 07-24-2022 End: 07-24-2022 Postop follow up visit related to original px Ricky Bingham MD Work Phone: Department of Otolaryngology Comment on above: 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) Start: 07-21-2022 End: 07-22-2022 Emergency department patient visit Noemi Ovalle MD Work Phone: [facility] Start: 07-12-2022 End: 07-17-2022 Evaluation and management of inpatient Ricky Bingham MD Work Phone: [id number] Comment on above: Postoperative state Start: 07-03-2022 End: 07-03-2022 Subsequent hospital visit by physician Heather Sánchez PA-C Work Phone: [facility] [place] Comment on above: Arrived Start: 07-03-2022 End: 07-03-2022 Office consultation new/estab patient 60 min Julia Rae MD Work Phone: Pre-Procedure Evaluation and Assessment [facility] Comment on above: Pre-operative examin ation for internal medicine (Primary Dx); 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; Hyperlipidemia, unspecified hyperlipidemia type; Type 2 diabetes mellitus without complication, without long-term current use of insulin; History of palpitations; Hypothyroidism, unspecified type; Gastroesophageal reflux disease, unspecified whether esophagitis present; Inflammatory arthritis; Obesity (BMI 30-39.9) Start: 07-03-2022 End: 07-03-2022 Patient encounter status Julia Rae MD Work Phone: Pre-Procedure Evaluation and Assessment [facility] Start: 06-13-2022 End: 06-13-2022 Office outpatient new 60 minutes Ricky Bingham MD Work Phone: Department of Otolaryngology Comment on above: 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) Start: 05-23-2022 End: 05-23-2022 Patient encounter procedure [facility] Start: 05-14-2022 End: 05-14-2022 [facility] Start: 05-13-2022 End: 05-13-2022 Patient encounter procedure [facility]Radiology, [place] Start: 02-22-2022 End: 02-22-2022 Patient encounter procedure [facility]-Outpatient Breast Imaging Start: 01-15-2022 End: 01-15-2022 Patient encounter procedure [facility] Start: 11-20-2021 End: 11-20-2021 Patient encounter procedure [facility]Laboratory, Specimen Start: 06-18-2018 End: 06-18-2018 Patient encounter procedure Maxime Astorga MD Work Phone: [facility] [place] [facility] Work Phone: Procedures Date Procedure Procedure Detail Performing Clinician Start: 06-15-2025 Follow-up visit Follow-up RICKY BINGHAM Start: 04-07-[address] Duong Durham MD Work Phone: Start: 04-07-[address] Duong Durham MD Work Phone: Start: 04-07-[address] Duong Durham MD Work Phone: Comment on above: Test Ordered: [id number] Stool CultureSalmon roseann/Shigella Screen Note: CB Final report Reference Range: .Result 1 Comment CB Reference Range: .No Salmonella or Shigella recovered.Campylobacter Culture Note: CB Final report Reference Range: .Result 1 Comment CB Reference Range: .No Campylobacter species isolated.E coli Shiga Toxin EIA Negative CB Reference Range: NegativePerformed at: [facility] [id number] Director: Yang Tee PhD, Phone: [phone] Start: 03-21-[address] Duong Durham MD Work Phone: Start: 03-15-2025 Urnls dip stick/tablet reagent auto microscopy Dr. Duong Durham MD Work Phone: Start: 03-15-2025 Vitamin D, 25-hydroxy measurement Dr. Gudelia Durham MD Work Phone: Comment on above: Vitamin D StatusDeficiency: <20 ng/mL (5 0nmol/L)Insufficiency: 20-30 ng/mL (50-75 nmol/L)Sufficiency: 30-100 ng/mL (75-250 nmol/L)Toxicity: >100 ng/mL (>250 nmol/L) Start: 01-26-[address] Duong davis MD Work Phone: Start: 11-23-2024 Ultrasound elastography of liver Dr. Marshal Durham MD Work Phone: Start: 11-23-2024 Measurement of renal function Dr. Duong vance MD Work Phone: Comment on above: GFR Calc Start: 11-23-[address] Duong valera MD Work Phone: Start: 11-23-2024 Urine microalbumin/creatinine ratio measurement Dr. Duong Durham MD Work Phone: Start: 11-23-2024 Vitamin D, 25-hydroxy measurement Dr. Gudelia Durham MD Work Phone: Comment on above: Vitamin D 25(OH) Status Range Deficiency <20 ng/mL (50nmol/L) Insufficiency 20 - 30 ng/mL (50 - 75 nmol/L) Sufficiency 30 - 100 ng/mL (75 - 250 nmol/L) Toxicity >100 ng/mL (>250 nmol/L) Start: 12-22-[address] Duong davis Work Phone: Start: 12-20-[address] Ul[address] elastography of liver Dr[address] Marshal Durham Work Phone: Start: 10-17-2023 Plain chest X-ray Dr. Duong Durham Work Phone: Start: 12-23-[address] Duong Durham Work Phone: Start: 07-22-2022 Blood count hematocrit Tomasa F [facility] [employer] REPAIR TECHNICIAN-[facility] Work Phone: Start: 07-21-2022 Glucose measurement, blood Jose mills MD Work Phone: Start: 07-21-2022 Blood count hematocrit Tomasa Orly [facility] [employer] REPAIR TECHNICIAN-[facility] Work Phone: Start: 07-21-2022 Glucose measurement, blood Jose mills MD Work Phone: Start: 07-21-2022 CBC AND ELECTRONIC DIFF Ilene Berrios rry [employer] REPAIR TECHNICIAN-SUPPORT GROUP MANAGER Work Phone: Start: 07-21-2022 Complete blood count with white cell differential, automated Ilene Felipeyberry [employer] REPAIR TECHNICIAN-SUPPORT GROUP MANAGER Work Phone: Start: 07-21-2022 LT BLUE TOP TUBE Ilene Felipeybkhadijah [employer] REPAIR TECHNICIAN-SUPPORT GROUP MANAGER Work Phone: Start: 07-17-2022 Glucose measurement, blood Ricky arredondo MD Work Phone: Start: 07-17-2022 Glucose measurement, blood Ricky arredondo MD Work Phone: Start: 07-17-2022 Assay of magnesium Taylor Burns MD Work Phone: Start: 07-16-2022 Glucose measurement, blood Ricky arredondo MD Work Phone: Start: 07-16-2022 Glucose measurement, blood Ricky arredondo MD Work Phone: Start: 07-16-2022 Glucose measurement, blood Ricky arredondo MD Work Phone: Start: 07-16-2022 Assay of magnesium Taylor Burns MD Work Phone: Start: 07-16-2022 Glucose measurement, blood Ricky arredondo MD Work Phone: Start: 07-15-2022 Glucose measurement, blood Ricky arredondo MD Work Phone: Start: 07-15-2022 Glucose measurement, blood Ricky arredondo MD Work Phone: Start: 07-15-2022 Glucose measurement, blood Ricky arredondo MD Work Phone: Start: 07-15-2022 Assay of magnesium Taylor Burns MD Work Phone: Start: 07-15-2022 Glucose measurement, blood Ricky arredondo MD Work Phone: Start: 07-14-2022 Radiologic exam abdomen 1 view Tish Alvarado MD Work Phone: Start: 07-14-2022 Glucose measurement, blood Ricky arredondo MD Work Phone: Start: 07-14-2022 Glucose measurement, blood Ricky arredondo MD Work Phone: Start: 07-14-2022 Glucose measurement, blood Ricky arredondo MD Work Phone: Start: 07-14-2022 Assay of magnesium Taylor Burns MD Work Phone: Start: 07-14-2022 Glucose measurement, blood Ricky arredondo MD Work Phone: Start: 07-13-2022 Glucose measurement, blood Ricky arredondo MD Work Phone: Start: 07-13-2022 Glucose measurement, blood Ricky arredondo MD Work Phone: Start: 07-13-2022 Glucose measurement, blood Ricky arredondo MD Work Phone: Start: 07-13-2022 Assay of magnesium Taylor Burns MD Work Phone: Start: 07-12-2022 Glucose measurement, blood Ricky arredondo MD Work Phone: Start: 07-12-2022 Glucose measurement, blood Ricky arredondo MD Work Phone: Start: 07-12-2022 Radiologic exam abdomen 1 view Taylor Burns MD Work Phone: Start: 07-12-2022 CONTINUOUS CARDIAC MONITORING STRIP Other Other Start: 07-12-2022 Glucose measurement, blood Ricky arredondo MD Work Phone: Start: 07-12-2022 End: 07-12-2022 Glucose measurement, blood Ricky arredondo MD Work Phone: Start: 07-12-2022 Glucose measurement, blood Ricky arredondo MD Work Phone: Start: 07-12-2022 End: 07-12-2022 Cervical lymphadec modified radical neck dsj Ricky Bingham MD Work Phone: Start: 07-12-2022 End: 07-12-2022 Glossectomy Ricky Bingham MD Work Phone: Start: 07-12-2022 End: 07-12-2022 Split agrft f/s/n/h/f/g/m/d gt 1st 100 cm/1 % Ricky Bingham MD Work Phone: Start: 07-12-2022 CONTINUOUS CARDIAC MONITORING STRIP Other Other Start: 07-12-2022 Glucose measurement, blood Ricky arredondo MD Work Phone: Start: 07-12-2022 ABORH TYPE RECONFIRMATION Marlena PRECIADO Start: 07-03-2022 Antibody screen Julia Rae MD Work Phone: Start: 07-03-2022 Blood typing serologic abo Julia howell MD Work Phone: Start: 07-03-2022 CBC AND ELECTRONIC DIFF Julia Miles Work Phone: Start: 07-03-2022 Complete blood count with white cell differential, automated Julia Rae MD Work Phone: Start: 07-03-2022 Creatinine blood Julia Rae MD Work Phone: Start: 05-13-2022 Plain chest X-ray Start: 02-22-2022 Screening mammography Start: 06-18-2018 End: 06-18-2018 Blood pressure within [...] Tobacco non-user Maxime Astorga MD Work Phone: Bacteria identification test Investigation of tra nsfusion reaction Microscopic observat ion [Identifier] in Unspecified specimen by Gram stain Ova OR parasites identification Dr. Duong Durham Work Phone: Respiratory microbial culture Plan of Treatment Date Care Activity Detail Author Start: 03-29-2031 Tetanus vaccination TETANUS [facility] Start: 12-13-2025 End: 12-13-2025 Patient encounter procedure 12/13/2025 2:30 PM EST Office Visit Department of Otolaryngology [address] [place] [address] Heather Sánchez PA-C [address] [place] [address] Department of Otolaryngology Start: 06-15-2025 End: 06-15-2025 Patient encounter procedure 06/15/2025 2:15 PM EDT Office Visit Department of Otolaryngology [address] [facility] [address] Ricky Bingham MD [address] [facility] [address] Department of Otolaryngology Start: 06-13-2025 COVID-19 VACCINE ( season) COVID-19 VACCINE ( season) [facility] Start: 06-13-2025 Influenza vaccination INFLUENZA VACCINE (#1) [facility] Start: 04-07-2025 Giardia Antigen (PINKY) Giardia Antigen (PINKY) [facility] Start: 04-07-2025 Ova and Parasites Ova and Parasites [facility] Start: 04-07-2025 [facility] Start: 01-26-2025 Egd transoral biopsy single/multiple EGD BIOPSY SINGLE/MULTIPLE [facility] Start: 01-26-2025 Patient discharge [facility] Start: 12-14-2024 End: 12-14-2024 Patient encounter procedure 12/14/2024 3:00 PM EST Office Visit Department of Otolaryngology [address] [facility] [address] Heather Sánchez PA-C [address] [place] [address] Department of Otolaryngology Start: 06-23-2024 End: 06-23-2024 Patient encounter procedure 06/23/2024 1:45 PM EDT Office Visit Department of Otolaryngology [address] [place] [address] Ricky Bingham MD [address] [place] [address] Department of Otolaryngology Start: 06-13-2024 COVID-19 VACCINE () COVID-19 VACCINE () [facility] Start: 06-13-2024 Influenza vaccination INFLUENZA VACCINE (#1) [facility] Start: 12-30-2023 End: 12-30-2023 Patient encounter procedure 12/30/2023 2:30 PM EDT Office Visit Department of Otolaryngology [address] [place] [address] Heather Sánchez, PAC [address] [place] [address] Department of Otolaryngology Start: 12-22-2023 Egd transoral biopsy single/multiple EGD BIOPSY SINGLE/MULTIPLE [facility] Start: 12-22-2023 Patient discharge [facility] Start: 12-20-2023 Liver stiffness by US.transient elastography [facility] Start: 12-20-2023 Ultrasound elastography of liver ABD Limited w/ Elastography [facility] Start: 07-26-2023 Potassium [Moles/volume] in Serum or Plasma POTASSIUM [facility] Start: 07-17-2023 Potassium [Moles/volume] in Serum or Plasma POTASSIUM [facility] Start: 07-03-2023 Potassium [Moles/volume] in Serum or Plasma POTASSIUM [facility] Start: 06-13-2023 COVID-19 VACCINE () COVID-19 VACCINE ( season) [facility] Start: 06-13-2023 Influenza vaccination INFLUENZA VACCINE (#1) [facility] Start: 02-19-2023 End: 02-19-2023 Patient encounter procedure 02/19/2023 Office Visit Otolaryngology Ricky Bingham MD [address] [place] [address] Department of Otolaryngology Start: 12-23-2022 Colonoscopy w/biopsy single/multiple COLONOSCOPY AND BIOPSY [facility] Start: 12-23-2022 Egd transoral biopsy single/multiple EGD BIOPSY SINGLE/MULTIPLE [facility] Start: 12-23-2022 Patient discharge [facility] Start: 11-20-2022 End: 11-20-2022 Patient encounter procedure 11/20/2022 Office Visit Otolaryngology Ricky Bingham MD [address] [place] [address] Department of Otolaryngology Start: 07-24-2022 End: 07-24-2022 ambulatory 07/24/2022 Rehab Services Visit Voice & Swallowing Jayda Block, QA TEST ANALYST [facility] Start: 07-24-2022 End: 07-24-2022 Patient encounter procedure 07/24/2022 Office Visit Otolaryngology Ricky Bingham MD [address] [place] [address] Department of Otolaryngology Start: 07-22-2022 COVID-19 VACCINE (2 - Pfizer series) COVID-19 VACCINE (2 - Pfizer series) [facility] Start: 07-12-2022 End: 07-12-2022 Cervical lymphadec modified radical neck dsj LYMPHADENECTOMY CERVICAL (MODIFIED RADICAL NECK DISSECTION) 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 07/12/2022 7:00 AM EDT [facility] Start: 07-12-2022 End: 07-12-2022 Evaluation and management of inpatient [facility] Comment on above: Malignant neoplasm of anterior two-third s of tongue GLOSSECTOMY LESS GI N 1/2 TONGUE Start: 07-12-2022 End: 07-12-2022 Glossectomy GLOSSECTOMY LESS THAN 1/2 TONGUE 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 07/12/2022 7:00 AM EDT [facility] Start: 07-12-2022 End: 07-12-2022 Split agrft f/s/n/h/f/g/m/d gt 1st 100 cm/1 % GRAFT SKIN SPLIT THICKNESS EAR EYELID FACE MOUTH ORBIT (STSG) 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 07/12/2022 7:00 AM EDT [facility] Start: 07-03-2022 End: 07-03-2022 Patient encounter procedure 07/03/2022 Appointment Computerized Tomography Scan Heather Sánchez PA-C [address] [place] [address] [facility] [place] Start: 07-03-2022 End: 07-03-2022 ambulatory 07/03/2022 Pre-Operative Assessment Internal Medicine Julia Rae MD [address] [facility] [address] [place] [address] Pre-Procedure Evaluation and Assessment [facility] Start: 06-13-2022 End: 06-13-2023 CT Chest W contrast IV CT CHEST WITH CONTRAST Imaging Routine 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 Expected: 06/13/2022, Expires: 06/13/2023 [facility] Comment on above: Expected: 06/13/2022, Expires: Start: 06-13-2022 End: 06-13-2023 CT Neck W contrast IV CT NECK WITH CONTRAST Imaging Routine 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 Expected: 06/13/2022, Expires: 06/13/2023 [facility] Comment on above: Expected: 06/13/2022, Expires: 3 Start: 06-13-2022 Influenza vaccination INFLUENZA VACCINE (#1) [facility] Start: 2022 Pneumococcal vaccination [facility] Start: 01-12-2021 Pneumococcal vaccination PNEUMOCOCCAL VACCINE SERIES (2 - PCV) [facility] Start: 06-13-2020 Zoster vaccine hzv live for subcutaneous use ZOSTER (SHINGLES) VACCINE (2 of 2) [facility] Start: 06-18-2018 End: 06-18-2018 Appointment Appointment [facility] Work Phone: Start: 2007 Zoster vaccine hzv live for subcutaneous use ZOSTER (SHINGLES) VACCINE (1 of 2) [facility] Start: 2002 Colonoscopy COLORECTAL CANCER SCREENING DISCUSSION [facility] Start: 2002 Screening for malignant neoplasm of colon COLORECTAL CANCER SCREENING DISCUSSION [facility] Start: 1997 Fasting lipid profile LIPID SCREENING [facility] Start: 1997 Lipid panel LIPID SCREENING [facility] Start: 1997 Screening for malignant neoplasm of breast MAMMOGRAM SCREENING DISCUSSION [facility] Start: 1997 Screening mammography MAMMOGRAM SCREENING DISCUSSION [facility] Start: 1978 Screening for malignant neoplasm of cervix CERVICAL CANCER SCREENING DISCUSSION [facility] Start: 02-10-1976 Third diphtheria, tetanus and acellular pertussis (DTaP) vaccination TDAP (ADULT) [facility] Start: 1975 Tetanus vaccination TETANUS [facility] Start: 1957 COVID-19 VACCINE (#1) COVID-19 VACCINE (#1) [facility] Start: 1957 Hepatitis B vaccination HEP B VACCINE (1 of 3 - 3-dose series) [facility] Start: 1957 Hepatitis C antibody, confirmatory test HEPATITIS C VIRUS SCREENING [facility] Start: 1957 Hepatitis C screening HEPATITIS C VIRUS SCREENING [facility] Start: 1957 Potassium [Moles/volume] in Serum or Plasma POTASSIUM [facility] Start: 1957 Screening for osteoporosis DEXA SCAN DISCUSSION [facility] Start: 1957 Thyroid stimulating hormone measurement TSH [facility] [id number]. leonel or marker [Units/volume] in Serum or Plasma [facility] Angiotensin converti ng enzyme [Enzymatic activity/volume] in Serum or Plasma [facility] C reactive protein [Mass/volume] in Serum or Plasma [facility] C reactive protein [Mass/volume] in Serum or Plasma [facility] CBC W Auto Different ial panel - Blood [facility] CBC W Auto Different ial panel - Blood [facility] Ceruloplasmin [Mass/volume] in Serum or Plasma [facility] Cervical lymphadec modified radical neck dsj LYMPHADENECTOMY CERVICAL (MODIFIED RADICAL NECK DISSECTION) 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 Comment on above: 1 Occurrences starting 07/03/2022 until 07/03/2022 Cytoplasmic ANCA Screen [facility] Ecg routine ecg w/le ast 12 lds w/i&r KS ELECTROCARDIOGRAM, COMPLETE KS - OFFICE PERFORMED Routine Pre-operative examination for internal medicine Ordered: 07/03/2022 [facility] Comment on above: Ordered: 07/03/2022 Elastase.pancreatic [Presence] in Stool [facility] Dar Vance virus capsid IgG and IgM panel - Serum [facility] EXTRA MINT GREEN TOP EXTRA MINT GREEN TOP Lab Routine 07/22/2022 4:23 AM EDT [facility] EXTRA TUBES EXTRA TUBES Lab Routine 07/22/2022 4:23 AM EDT [facility] Ferritin [Mass/volum e] in Serum or Plasma [facility] Giardia lamblia anti gen assay [facility] [facility] GLOSSECTOMY LESS THAN 1/2 TONGUE 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 [facility] MAIN OR GOLD TOP TUBE GOLD TOP TUBE La b Routine 07/21/2022 11:53 AM EDT [facility] Hemoglobin A1c/Hemoglobin.total in Blood [facility] Hemoglobin A1c/Hemoglobin.total in Blood [facility] HIV 1+2 Ab+HIV1 p24 Ag [Presence] in Serum or Plasma by Immunoassay [facility] Iron and Iron bindin g capacity panel - Serum or Plasma [facility] Lactate dehydrogenas e measurement [facility] Laryngoscopy flexibl e diagnostic [place] LARYNGOSCOPY FLEXIBLE DIAGNOSTIC [place] Charge Routine 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 Ordered: 06/13/2022 [facility] Comment on above: Ordered: 06/13/2022 LAVENDER TOP TUBE LAVENDER TOP T UBE Lab Routine 07/21/2022 11:53 AM EDT [facility] Lipid 1995 panel - Serum or Plasma [facility] Lipid 1995 panel - Serum or Plasma [facility] Liver stiffness by US.transient elastography [facility] Magnesium [Mass/volu me] in Serum or Plasma [facility] MINT GREEN TOP TUBE MINT GREEN T OP TUBE Lab Routine 07/21/2022 11:53 AM EDT [facility] Mitochondria Ab [Presence] in Serum [facility] Noninvasive ear/puls e oximetry single deter [place] NONINVASV OXYGEN SATUR; SINGLE [place] - OFFICE PERFORMED Routine Pre-operative examination for internal medicine Ordered: 07/03/2022 [facility] Comment on above: Ordered: 07/03/[address] [facility] Ova OR parasites identification [facility] Patient Education \cps-sql1\CPS_ PtEducatio n\[facility]_FALL_PREVENTION.pd f [facility] Work Phone: Patient referral [facility] Work Phone: Procedure [facility] Protein measurement [facility] Prothrombin time [facility] Prothrombin time [facility] RAINBOW DRAW RAINBOW DRAW Lab Routine 07/21/2022 11:53 AM EDT [facility] Serum inorganic phosphate measurement [facility] Smooth muscle Ab [Presence] in Serum [facility] Split agrft f/s/n/h/f/g/m/d gt 1st 100 cm/1 % GRAFT SKIN SPLIT THICKNESS EAR EYELID FACE MOUTH ORBIT ([facility]) 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 [facility] MAIN OR SURG PATH REQUEST [facility] Work Phone: Comment on above: Release Upon Ordering for 1 Occurrences starting 07/12/2022, 1 completed Vitamin D, 25-hydrox y measurement [facility] [place]izations Immunization Date Immunization Notes Care Provider [facility] 07-27-2024 influenza virus vaccine, unspecified formulation Ricky Bingham MD Work Phone: [facility] 07-11-2023 influenza virus vaccine, unspecified formulation Ricky Bingham MD Work Phone: [facility] 07-01-2022 influenza virus vaccine, unspecified formulation Ricky Bingham MD Work Phone: [facility] 07-13-2021 influenza virus vaccine, unspecified formulation Ricky Bingham MD Work Phone: [facility] 04-18-2020 zoster vaccine, unspecified formulation Noemi Ovalle MD Work Phone: [facility] No information available. [facility] Work Phone: Payers Date Payer Category Payer Self-pay [id number] 2022 Medicare [id number] 2022 Medicare [id number] 2022 Managed Care (unspecified) [employer] [id number] 2022 Unknown AARP AARP [id number] 2022-Present [address] [place] [address] [id number] 2022 Unknown [id number] 2011 Private Health Insurance [id number] 1955 Unknown [id number] .[id number]. 594 1955 Unknown [id number] ..[id number]. 594 1955 Unknown [id number] .[id number]. 594 Unknown [id number] Unknown [id number] Unknown [id number]. 462 Unknown [id number] .[id number]. 462 Unknown [id number] 2.0.1.733715.3.579.2. 462 Unknown [id number] 2.840.1.660431.3.579.2. 462 Unknown [id number] .0.1.105038.3.579.2. 462 Unknown [id number] 2.16.840.1.015737.3.579.2. 462 Unknown [id number] 2.16.840.1.863056.3.579.2. 462 Unknown [id number] 2.16.840.1.342168.3.579.2. 462 Unknown [id number] 2.16.840.1.649349.3.579.2. 462 Unknown [id number] 2.16.840.1.316695.3.579.2. 462 Unknown [id number] 2.16.840.1.749808.3.579.2. 462 Unknown [id number] 2.16.840.1.454442.3.579.2. 462 Unknown [id number] 2.16.840.1.421904.3.579.2. 462 Unknown [id number] 2.840.1.234935.3.579.2. 462 Unknown [id number]. 462 Social History Date Type Detail Facility Start: 07-23-2019 End: 01-27-2024 Tobacco smoking status [facility] Unknown if ever smoked [facility] Start: 07-23-2019 Non-smoker [facility] Start: 1955 Sex Assigned At Female [facility] Start: 06-13-2022 End: 01-20-2025 Tobacco smoking status NJIS Never smoked tobacco [facility] Start: 06-13-2022 Tobacco use and exposure Smokeless tobacco non-user [facility] Start: 06-13-2022 End: 12-14-2024 Alcohol intake Lifetime non-drinker (finding) [facility] Start: 1955 Sex Assigned At Not on file [facility] Start: 07-05-2022 End: 07-24-2022 Exposure to SARS-CoV-2 (event) Not sure [facility] Start: 11-10-2022 End: 11-20-2022 Exposure to SARS-CoV-2 (event) Unable to assess [facility] Start: 08-21-2022 End: 06-15-2025 History of Social function [facility] Start: 08-21-2022 End: 06-15-2025 Tobacco use panel [facility] Adolescent depressio n screening assessment 0 [facility] Start: 06-07-2022 End: 02-07-2025 Sex Female (finding) [facility] Start: 12-07-2024 Gender identity Identifies as female gender (finding) [facility] Start: 12-07-2024 Sexual orientation Heterosexual (fin ding) [facility] Start: 12-07-2024 Sexual orientation Choose not to dis close [facility] NEGATED: Highlighted rowStart: 06-18-2018 End: 06-18-2018 Alcohol use ETOH USE No [facility] Work Phone: NEGATED: Highlighted rowStart: 06-18-2018 End: 06-18-2018 Details of drug misuse behavior DRUG USE No [facility] Work Phone: NEGATED: Highlighted rowStart: 06-18-2018 End: 06-18-2018 Assertion Never smoker [facility] Work Phone: NEGATED: Highlighted row Not [facility] Medical Equipment Procedure Code Equipment Code Equipment Origin al Text Equipment Identifier Dates Arthroscopy, shoulder, with rotator cuff repair KIT,[employer] FDA Start: 08-19-2018 Arthroscopy, shoulder, with rotator cuff repair KIT,[employer] FDA Start: 08-19-2018 Arthroscopy, shoulder, with rotator cuff repair KIT,[place] FDA Start: 08-19-2018 Arthroscopy, shoulder, with rotator cuff repair KIT,[employer] FDA Start: 08-19-2018 Arthroscopy, shoulder, with rotator cuff repair KIT,[place] FDA Start: 08-19-2018 Arthroscopy, shoulder, with rotator cuff repair KIT,[employer] FDA Start: 08-19-2018 Arthroscopy, shoulder, with rotator cuff repair KIT,[employer] FDA Start: 08-19-2018 Arthroscopy, shoulder, with rotator cuff repair KIT,[employer] FDA Start: 08-19-2018 Arthroscopy, shoulder, with rotator cuff repair KIT,[employer] FDA Start: 08-19-2018 Arthroscopy, shoulder, with rotator cuff repair KIT,[employer] FDA Start: 08-19-2018 Arthroscopy, shoulder, with rotator cuff repair KIT,[employer] FDA Start: 08-19-2018 Arthroscopy, shoulder, with rotator cuff repair KIT,[employer] FDA Start: 08-19-2018 Arthroscopy, shoulder, with rotator cuff repair KIT,[employer] FDA Start: 08-19-2018 Arthroscopy, shoulder, with rotator cuff repair KIT,[employer] FDA Start: 08-19-2018 Arthroscopy, shoulder, with rotator cuff repair KIT,[employer] FDA Start: 08-19-2018 Arthroscopy, shoulder, with rotator cuff repair KIT,[employer] FDA Start: 08-19-2018 Arthroscopy, shoulder, with rotator cuff repair KIT,[employer] FDA Start: 08-19-2018 Arthroscopy, shoulder, with rotator cuff repair KIT,[employer] FDA Start: 08-19-2018 Arthroscopy, shoulder, with rotator cuff repair KIT,[employer] FDA Start: 08-19-2018 Arthroscopy, shoulder, with rotator cuff repair KIT,[employer] FDA Start: 08-19-2018 Arthroscopy, shoulder, with rotator cuff repair KIT,[employer] FDA Start: 08-19-2018 Arthroscopy, shoulder, with rotator cuff repair KIT,[employer] FDA Start: 08-19-2018 Hemostat Surgice l Powder 3 Grams Absorbable - [id number] Start: 07-12-2022 Blood Sugar Diagnostic (Freestyle Test) strip Start: 08-06-2022 Blood Sugar Diagnostic (Freestyle Test) strip Start: 08-06-2022 Blood Sugar Diagnostic (Freestyle Test) strip Start: 08-06-2022 Blood Sugar Diagnostic (Freestyle Test) strip Start: 08-06-2022 Blood Sugar Diagnostic (Freestyle Test) strip Start: 08-06-2022 Blood Sugar Diagnostic (Freestyle Test) strip Start: 08-06-2022 Blood Sugar Diagnostic (Freestyle Test) strip Start: 08-06-2022 Blood Sugar Diagnostic (Freestyle Test) strip Start: 08-06-2022 Blood Sugar Diagnostic (Freestyle Test) strip Start: 08-06-2022 Blood Sugar Diagnostic (Freestyle Test) strip Start: 08-06-2022 Blood Sugar Diagnostic (Freestyle Test) strip Start: 08-06-2022 Blood Sugar Diagnostic (Freestyle Test) strip Start: 08-06-2022 Blood Sugar Diagnostic (Freestyle Test) strip Start: 08-06-2022 Blood Sugar Diagnostic (Freestyle Test) strip Start: 08-06-2022 Blood Sugar Diagnostic (Freestyle Test) strip Start: 08-06-2022 Blood Sugar Diagnostic (Freestyle Test) strip Start: 08-06-2022 Blood Sugar Diagnostic (Freestyle Test) strip Start: 08-06-2022 Goals Date Patient Goal Desired Activity /State Functional Status Date Assessment Result Facility 07-24-2022 Are you deaf, or do you have serious difficulty hearing No 07/24/2022 9:39 PM Suly Carvalho, ANISHA [facility] 07-24-2022 Are you blind, or do you have serious difficulty seeing, even when wearing glasses No 07/24/2022 9:39 PM Suly Carvalho, ANISHA No [facility] 07-24-2022 Do you have serious difficulty walking or climbing stairs No 07/24/2022 9:39 PM Suly Carvalho, ANISHA [facility] 07-24-2022 Do you have difficul ty dressing or bathing No 07/24/2022 9:39 PM Suly Carvalho, ANISHA [facility] 07-24-2022 Because of a physica l, mental, or emotional condition, do you have difficulty doing errands alone such as visiting a physician's office or shopping No 07/24/2022 9:39 PM Suly Carvalho, ANISHA No [facility] Mental Status Date Assessment Result Facility 01-26-2025 Cognitive function Voice/Name [facility] Work Phone: 12-22-2023 [facility] 12-23-2022 Cognitive function Level Of Cons ciousness Drowsy [facility] Work Phone: 12-23-2022 Cognitive function Voice/Name 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 She is s/p control of oropharyngeal bleed on 07/24/22. Patient presents today for scheduled follow up. She had follow up with Dr. Reeves several months ago and repeat right lateral tongue biopsy was performed at that time. She did not treat this area and is planning close follow up and she has apt with her in Nov. Nursing documentation has been reviewed. Past Medical History: Diagnosis Date Arrhythmia Arthritis 2017 Diabetes mellitus 2014 Hypercholesterolemia Renal calculi Squamous cell carcinoma, keratinizing Past Surgical History: Procedure Laterality Date COLONOSCOPY DIAGNOSTIC 2022 CONTROL OROPHARYNGEAL HEMORRHAGE SECONDARY N/A 07/24/2022 Laterality: [...] Laterality: Right; Surgeon: Ricky Bingham MD; Location: [facility] MAIN OR KNEE REPLACEMENT Right KNEE REPLACEMENT Left LITHOTRIPSY ROTATOR CUFF REPAIR Current Outpatient Medications Medication Sig Dispense Refill allopurinol 300 MG tablet Take 100 mg by mouth daily every morning. Atenolol 25 MG tablet Take 1 tablet by mouth daily every morning. atorvastatin 10 MG tablet Take 1 tablet by mouth at bedtime. Calcium Carbonate (CALCIUM 500 PO) Take 1,000 mg by mouth daily every morning. cetirizine 10 MG tablet Take 1 tablet by mouth daily as needed. Empagliflozin (Jardiance) 10 MG tablet 1 tab(s) orally once a day (in the morning) escitalopram 5 MG tablet Take 2 tablets by mouth daily every morning. hydroCHLOROthiazide 25 MG tablet Take 1 tablet [...] 1 tablet by mouth daily every morning. Pantoprazole Sodium (pantoprazole, [id number],) 40 MG tablet Take 1 tablet by mouth daily. Potassium Citrate 15 MEQ (1620 MG) Tab CR 1 Semaglutide,0.25 or 0.5MG/DOS, (Ozempic, 0.25 or 0.5 MG/DOSE,) 2 MG/3ML Solution Pen-injector INJECT 0.25MG SUBCUTANEOUSLY ONCE PER WEEK FOR 4 WEEKS, THEN INCREASE TO 0.5MG ONCE PER WEEK THEREAFTER. Subcutaneous for 42 Days acetaminophen 325 MG tablet Take 2 tablets by mouth every 6 hours as needed for Moderate Pain or Severe Pain. chlorhexidine 0.12 % Solution oral solution Take 15 mL by mouth every 12 hours for 14 days. 420 mL 0 Clotrimazole 10 MG Dayday Take 1 tablet by mouth 5 times daily for 7 days. 35 tablet 0 First-BLM mouthwash (commercial containing Ktiggdcmz-Huwrhuowu-Mo/MgHydr-S imeth) 1 tbsp Q4-6 hrs PRN mouth pain. Swish x 1 min, then spit. 237 mL 1 Gabapentin (Neurontin) 100 MG capsule Take 1 capsule by mouth 3 times daily. 90 capsule 1 No current facility-administered medications for this visit. Allergies Allergen Reactions *Seasonal Sulfa Antibiotics Rash Exam: BP 133/70 (BP Position: Sitting) Pulse 85 Temp 97.2 F (36.2 C) (Temporal) Resp 18 Wt 82.9 kg (182 lb 11.2 oz) SpO2 98% BMI 33.42 kg/m Smoking Status Never Documented vital signs [...] glossectomy, Right selective neck dissection, levels I-IV, [place] of split-thickness skin graft 5 cm x 7 cm from right anterolateral thigh 07/12/23. WILLY on exam today. - Follow up with Dr. Reeves as scheduled in Nov - Follow up in surveillance in 6 months Attending Physician Note I independently interviewed, [...] Continue tumor surveillance. documented in this encounter [facility] 06-15-2025 Instructions Maribel Durán RN - 06/15/2025 2:15 PM EDT Please call Dr. Bingham's nurse, Maribel, at [phone] if you notice any new lumps in head or neck, new onset of difficulty with swallowing, persistent ear pain, hoarseness or new pain in head and neck that does not go away for 2 weeks. documented in this encounter [facility] 01-26-2025 History and physi jessica note Note Date/Time January 26, 2025 12:11pm [facility] Medical Records Department [address] [place] [address] History & Physical Exam 01/26/25 1209 MR#: [id number] Acct: [id number] Name: ASTRID DUMONT Rep #:[id number] : 1955 69 From: Abdi Friend DO PCP: Dr. Duong Durham MD Status:[facility] Location: [place] [address] HPI - General General Date of Admission: 01/26/25 Date of Service: 01/26/25 Chief Complaint: oliva's esophagus HPI Narrative ASTRID DUMONT, is a 69 F who presents for surveillance of Oliva's esophagus . Last visit 12.19.22 for discussion of EGD and colonoscopy results. She saw her primary care physician Dr Durham since her endoscopies and he started her on omeprazole 40 mg qam for new diagnosis of Oliva's esophagus. EGD had appearance of long-segment Oliva's which was confirmed on biopsy, negative for dysplasia; significant bile in the stomach; no pathologic diagnosis from duodenal biopsies. Colonoscopy revealed diverticulosis, no pathologic diagnosis from random colon biopsies. Diarrhea is significantly improved with cholestyramine in morning, doesn't seem like it lasts all day, loperamide in pm. treated with vancomycin for C diff. positive for C diff A/B antigen, negative for C diff toxin, positive for PCR. negative test for EPI, neg for Crohn's, neg for celiac 20 yr hx of IBS-D. Viberzi was effective but cost prohibitive. No dietary triggers in particular. No relief with Lotronex. Never on xifaxan. Never on lomotil. On metformin for 15 yrs. Tested negative for celiac in 2017. Normal fecal elastase in 2021. No melena or hematochezia. Gets a discomfort in the LLQ before diarrhea, that resolves after having multiple bouts of diarrhea in the morning. 12/23/22 EGD and Colonoscopy Impression: - Esophageal mucosal changes consistent with long-segment Oliva's esophagus. Biopsied. - Bile gastritis. - Erythematous duodenopathy. Biopsied. Impression: - Congested mucosa in the sigmoid colon, at the splenic flexure and at the hepatic flexure. Biopsied. - Diverticulosis in the sigmoid colon. MICROSCOPIC DIAGNOSIS A. Duodenum, biopsy: Fragments of duodenal mucosa, no pathologic diagnosis. B. Distal esophagus, biopsy: Fragments of gastroesophageal mucosa with intestinal metaplasia (goblet cell metaplasia), consistent with Oliva's esophagus. Chronic inflammation. Negative for dysplasia. See comment. C. Colon, random biopsy: Fragments of colonic mucosa, no pathologic diagnosis. US abd limited .03.26.2021- Liver measures 21.6cm with fatty infiltration OV 09.29.23- Pt here to follow up regarding her liver. Received fax [facility] to review her elevated LFT's. Says she was told she had fatty liver before. Diarrhea has been controlled with cholestyramine and prn Lomotil. Denies abdominal pain, cramping and bloating. Heartburn is controlled with Omeprazole. US abd/ elastography .07.06- Liver measures 20.7cm Stiffness 8.1kPa EGD 12.22.23- Long segment Oliva's Esophagus, acute gastritis Pathology: extensive intestinal metaplasia, neg. dysplasia Fib-4 4.9.24 1.47 OV 4..24- Pt stable since last visit. States her bowels are normal as long as she takes one Lomotil in the morning and the Cholestyramine in the evening. Denies any abdominal pain, cramping or bloating. No heartburn. Continues Omeprazole 40 mg daily. Magnesium is low even she is taking magnesium oxide 400mg twice daily. Discussed the lab, EGD findings, pathology and imaging OV 10.09.05 Pt has been doing well since last visit. She started Ozempic a few months back and was having some diarrhea from this. She stopped if for her trip to [place] but has since restarted it. Her diarrhea is controlled now with Lomotil daily and cholestyramine daily. If she has more diarrhea she says she will take more. 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 Overall she is happy with how she is doing. [facility] Medical History History of renal disease Restless legs Non-smoker Post-menopausal Cancer Thyroid disease Diabetes Inflammatory arthritis Arthritis Kidney stones High cholesterol History of IBS History of stress test History of irregular heartbeat Home Medications ?Medication ?Instructions ?Recorded ?Last Taken ?Type atorvastatin 10 mg tablet 10 mg PO QHS 03/01/15 Unknow n History hydrochlorothiazide 25 mg tablet 25 mg PO DAILY Unknown History levothyroxine 75 mcg tablet 75 mcg PO DAILY 03/01/15 1 08:00 History metformin 1,000 mg tablet 1,000 mg PO BIDCM 03/01/15 U nknown History multivitamin with folic acid 400 1 tab PO DAILY Unknown History mcg tablet (Thera) cetirizine 10 mg capsule (All Day 10 mg PO PRN PRN ALL ERGIES 03/15/15 Unknown History Allergy (cetirizine)) calcium carbonate 1,000 mg PO DAILY 08/12/18 U nknown History hydroxychloroquine 200 mg tablet 200 mg PO BID 8 Unknown History (Plaquenil) escitalopram oxalate 10 mg tablet 10 mg PO DAILY 07/23 Unknown History blood sugar diagnostic (FreeStyle 08/06/22 Unknown Hi story Test strips) cholecalciferol (vitamin D3) 50 50 mcg PO DAILY Unknown History mcg (2,000 unit) capsule empagliflozin 25 mg tablet 25 mg PO DAILY 08/06/22 Unk nown History (Jardiance) melatonin 5 mg capsule 5 mg PO QHS PRN sleep Unknown History potassium citrate 5 mEq (540 mg) 1,620 mg PO BID 08/06 Unknown History tablet,extended release (Urocit-K 5) allopurinol 300 mg tablet 100 mg PO DAILY 10/18/22 Unk nown History atenolol 25 mg tablet 25 mg PO DAILY 10/18/2212/11 04:30 History semaglutide 0.25 mg or 0.5 mg (2 0.5 mg subcut QWEEK 1 01/14/25 History mg/3 mL) subcutaneous pen injector (Ozempic) pantoprazole 40 mg tablet,delayed 40 mg PO BID acid re flux 90 days 08/16/24 Unknown Rx release #180 tabs magnesium chloride 64 mg 128 mg (2 x 64 mg magnesium) PO 12/16/24 Unknown Rx (magnesium chloride) tablet DAILY #120 tabs diphenoxylate-atropine 2.5 1 tab PO Q8H PRN diarrhea 0 01/20/25 Unknown History mg-0.025 mg tablet Allergy/AdvReac Type Severity Reaction Status Date / Time acetaminophen (From Vicodin) Allergy Other Verified 01/20/25 13:30 hydrocodone (From Vicodin) Allergy Other Verified 01/20/25 13:30 Sulfa (Sulfonamide Allergy Rash Verified 01/20/25 13:30 Antibiotics) Family History Brother Leukemia Brother No problems noted. Father No problems noted. Mother Osteoarthritis Daughter No problems noted. Son No problems noted. Daughter No problems noted. Surgical History Hx of section Hx of glossectomy Hx of nephrostomy History of wisdom tooth extraction History of lithotripsy History of ureteroscopy History of partial knee replacement Hx of repair of rotator cuff History of lingual frenulectomy Social History Smoking Status: Never smoker alcohol intake: never substance use type: does not use ROS Constitutional Constitutional: Denies fatigue, fever(s), poor appetite, weight gain or weight loss Gastrointestinal Gastrointestinal: Denies belching, bloating, change in bowel habits, change in stool character, chewing difficulty, coffee ground emesis, constipation, cramping, diarrhea, dyspepsia, dysphagia, early satiety, excessive flatus, fecalincontinence, heartburn, hematemesis, hematochezia, hemorrhoids, loose stools, melena, nausea, odynophagia, rectal bleeding, tenesmus, vomiting or weight changes Physical Exam Const alert, oriented x3, no apparent distress and healthy appearing General Appearance: cooperative GI normal to inspection, nondistended, normoactive bowel sounds, soft to palpation,non-tender and non-distended Percussion: normal to percussion Rectal Exam: deferred Assessment & Plan Assessment/Plan (1) Oliva's esophagus: QUALIFIERS: Oliva's esophagus type: without dysplasia QualifiedCode(s): K22.70 - Oliva's esophagus without dysplasia (2) Cirrhosis: (3) NAFLD (nonalcoholic fatty liver disease): (4) Duodenogastric bile reflux: PLAN: Plan Assessment and Plan Assessment and Plan (1) NAFLD (nonalcoholic fatty liver disease): Status: Chronic Plan: Pt is a 69 yo female here today for f/u. She is being seen here with I for herfatty liver. Her last elastography showing hepatomegaly and liver stiffness of 8.1 kPa. She started ozempic for her diabetes recently which in turn may help with her fatty liver. She is having some side effects from this medication like diarrhea and nausea but she is willing to try it for a little longer. Her diarrhea is currently controlled with Lomotil daily and cholestyramine daily. She will increase the lomotil as needed.Liver elastography ordered for her to have before her next appointment in 6 months. Her last EGD in December of 2023 showed Oliva esophagus. I let her know she will need to have another in 6 months to ensure this is not progressing. She is on pantoprazole daily and I explained the importance of continue it. -Liver elastography -EGD -Continue pantoprazole -Continue Lomotil and cholestyramine -f/u in 6 months (2) Oliva's esophagus: Status: Chronic Qualifiers: Oliva's esophagus type: without dysplasia Qualified Code(s): K22.70 -Oliva's esophagus without dysplasia (3) Irritable bowel syndrome with diarrhea: Status: Chronic Orders: Orders ABD Limited w/ Elastography 4 Months K76.0 - Fatty (change of) liver, not elsewhere classified 01/26/25 1211 <Electronically signed by Abdi Jackson DO> Cosigner Signature (if applicable): CC: Dr. Duong Durham MD; Abdi Jackson DO~ Signed [facility] Work Phone: 1(738) 324-847604-16-2025 Consult note Author Arthur Rawls [facility] Note Date/Time January 26, 2025 11: 51am [facility] Medical Records Department [address] [place] [address] Pre-Anesthesia Evaluation 01/26/25 1150 MR#: [id number] Acct: [id number] Name: ASTRID DUMONT Rep #:[id number] : 1955 69 From: Arthur Rawls MD PCP: Dr. Duong Durham MD Status[place] [facility] C Location: [place] [address] ASA Classification* ASA Classification ASA Classification: 3 Assessment & Plan Anesthesia* Anesthesia Assessment Anesthesia Assessment: Discussed sedation and/or anesthesia options, risks, benefits, and alternatives with patient/parents/legal guardian/POA. Questions invited. The patient/parents/legal guardian/POA seems to understand and agrees to proceedwith anesthesia plan. Reviewed the physical assessment, medical history, allergy history and patient home medications list prior to surgery/procedure/anesthetic and documented any changes. Performed airway and anesthesia risk assessments. Anesthesia Type Anesthesia Type: MAC Anesthesia Focused Assessment* Airway Assessment Mouth opens: >3 cm Mallampati Score: II Focused Labs Anesthesia Preop lab: CBC WBC 6.1 K/mm3 (4.4-11.0) 11/23/24 07:09 11/23/24 RBC 5.09 M/mm3 (4.2-5.4) 11/23/24 07:09 11/23/24 Hgb 14.8 g/dL (12.0-15.0) 11/23/24 07:09 11/23/24 Hct 44.6 % (37-47) 11/23/24 07:09 11/23/24 Plt Count 234 K/mm3 (150-450) 11/23/24 07:09 11/23/24 CHEMISTRY Potassium 3.9 mmol/L (3.5-5.1) 11/23/24 07:09 11/23/24 Sodium 138 mmol/L (136-145) 11/23/24 07:09 11/23/24 Magnesium 1.5 mg/dL (1.6-2.6) L 11/23/24 07:09 11/23/24 Phosphorus 4.2 mg/dL (2.5-4.9) 08/12/24 06:49 08/12/24 BUN 16 mg/dL (7-18) 11/23/24 07:09 11/23/24 Creatinine 0.98 mg/dL (0.55-1.02) 11/23/24 07:09 11/23/24 Glucose 165 mg/dL (74-106) H 11/23/24 07:09 11/23/24 POC Glucose 206 mg/dL (74-106) H 12/22/23 05:48 12/22/23 TSH 5.590 uIU/mL (0.358-3.740) H 11/23/24 07:09 COAG PT 13.6 SECONDS (11.7-14.9) 08/12/24 06:49 Pre-Assessment Diagnosis/Proposed Procedure Planned Operative Procedure(s): EGD Anesthesia History 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 When Was Last Pacemaker Check QUESTION #4 FULL TEXT: You/Your Family Experience fever (hyperthermia) with Anesthesia Last Oral Intake Last Oral intake: Last Oral Intake NPO since Meds taken in AM with sips of water? 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 Female Yes 01/20/25 13:36 HX of Motion Sickness No 01/20/25 13:36 HX of N/V After Surgery Yes 01/20/25 13:36 Non-Smoker Yes 01/20/25 13:36 Duration of Surgery greater No 01/20/25 13:36 than 60 minutes Number of Risk Factors 3 01/20/25 13:36 PONV Score Moderate Risk 01/20/25 13:36 Height & Weight Height & Weight: Anesthesia: Height & Weight Height 5 ft 2 in 01/27/24 14:59 Respiratory Assessment Respiratory Assessment - assistant professor of archaeology: Respiratory Tract Infection Hx - assistant professor of archaeology Hx Respiratory Tract Infection No 01/20/25 13:36 STOP Sleep Apnea STOP Sleep Apnea - assistant professor of archaeology: STOP Sleep Apnea - assistant professor of 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 Has anyone observed you stop No 01/20/25 13:36 breathing during sleep? STOP Results Negative 01/20/25 13:36 QUESTION #5 FULL TEXT : Do you snore loudly (louder than talking or can be heard through closed doors)? 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 Specify any problems Hx of Preganancy in last 3 No 01/20/25 13:36 Months Nurse Filling Out Transfusion [facility] 01/20/25 13:36 & Questions: Date: 01/20/25 01/20/25 13:36 Time: 13:44 01/20/25 13:36 Patient unable to answer at this time (ie. 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: /Reproductive Hx- assistant professor of archaeology Hx Now No 01/20/25 13:36 Gestational Age (in weeks): EDC: Hx Hx Para Hx Section SAB PFSH Medical History History of renal disease Restless legs Non-smoker Post-menopausal Cancer Thyroid disease Diabetes Inflammatory arthritis Arthritis Kidney stones High cholesterol History of IBS History of stress test History of irregular heartbeat Home Medications ?Medication ?Instructions ?Recorded ?Last Taken ?Type atorvastatin 10 mg tablet 10 mg PO QHS 03/01/15 Unknow n History hydrochlorothiazide 25 mg tablet 25 mg PO DAILY Unknown History levothyroxine 75 mcg tablet 75 mcg PO DAILY 03/01/15 1 08:00 History metformin 1,000 mg tablet 1,000 mg PO BIDCM 03/01/15 U nknown History multivitamin with folic acid 400 1 tab PO DAILY Unknown History mcg tablet (Thera) cetirizine 10 mg capsule (All Day 10 mg PO PRN PRN ALL ERGIES 03/15/15 Unknown History Allergy (cetirizine)) calcium carbonate 1,000 mg PO DAILY 08/12/18 U nknown History hydroxychloroquine 200 mg tablet 200 mg PO BID 8 Unknown History (Plaquenil) escitalopram oxalate 10 mg tablet 10 mg PO DAILY 07/23 Unknown History blood sugar diagnostic (FreeStyle 08/06/22 Unknown Hi story Test strips) cholecalciferol (vitamin D3) 50 50 mcg PO DAILY Unknown History mcg (2,000 unit) capsule empagliflozin 25 mg tablet 25 mg PO DAILY 08/06/22 Unk nown History (Jardiance) melatonin 5 mg capsule 5 mg PO QHS PRN sleep Unknown History potassium citrate 5 mEq (540 mg) 1,620 mg PO BID 08/06 Unknown History tablet,extended release (Urocit-K 5) allopurinol 300 mg tablet 100 mg PO DAILY 10/18/22 Unk nown History atenolol 25 mg tablet 25 mg PO DAILY 10/18/2212/11 04:30 History semaglutide 0.25 mg or 0.5 mg (2 0.5 mg subcut QWEEK 1 01/14/25 History mg/3 mL) subcutaneous pen injector (Ozempic) pantoprazole 40 mg tablet,delayed 40 mg PO BID acid re flux 90 days 08/16/24 Unknown Rx release #180 tabs magnesium chloride 64 mg 128 mg (2 x 64 mg magnesium) PO 12/16/24 Unknown Rx (magnesium chloride) tablet DAILY #120 tabs diphenoxylate-atropine 2.5 1 tab PO Q8H PRN diarrhea 0 01/20/25 Unknown History mg-0.025 mg tablet Allergy/AdvReac Type Severity Reaction Status Date / Time acetaminophen (From Vicodin) Allergy Other Verified 01/20/25 13:30 hydrocodone (From Vicodin) Allergy Other Verified 01/20/25 13:30 Sulfa (Sulfonamide Allergy Rash Verified 01/20/25 13:30 Antibiotics) Family History Brother Leukemia Brother No problems noted. Father No problems noted. Mother Osteoarthritis Daughter No problems noted. Son No problems noted. Daughter No problems noted. Surgical History Hx of section Hx of glossectomy Hx of nephrostomy History of wisdom tooth extraction History of lithotripsy History of ureteroscopy History of partial knee replacement Hx of repair of rotator cuff History of lingual frenulectomy Social History Smoking Status: Never smoker alcohol intake: never substance use type: does not use Review of Systems (Anesthesia) ROS Narrative System reviewed and no additional complaints, except as documented. 01/26/25 1151 <Electronically signed by Arthur Rawls MD > Date _ Arthur Rawls MD Cosign Signature: Date CC: ~ Signed [facility] Work Phone: 1(928) 909-730004-16-2025 Consult note [facility] Medical Records Department [address] [place] [address] Anesthesia Postop Eval I 01/26/25 1329 MR#: [id number] Acct: [id number] Name: ASTRID DUMONT Rep #:[id number] : 1955 69 From: Kvng Hobbs PCP: Dr. Duong Durham MD Status:RE G SDC Y Race: C Location: [place] [address] Anesthesia: Postop Eval I Current Vital Signs Temperature: 97.9 F Pulse Rate: 74 Blood Pressure: 102/58 Respiratory Rate: 16 Pulse Ox: 97 Oxygen Delivery Method: Room Air Assessment Airway patent: Yes Spontaneous unlabored respirations: Yes Mental status: Awake and Calm nausea: No Vomiting: No Anesthesia Complication: No Fluid Hydration Crystalloid volume administer (ml): 30 Total IV fluid infused: 30 Progress Note Anesthesia document: Postop Eval 1 completed: Yes 01/26/25 1330 > Date _ Kvng Hobbs Cosigner Signature: Date CC: ~ Signed [facility]04-16-2025 Evaluation note* Diagnosis Onset Date Resolution Status Admit Date Cirrhosis acute January 26 11:16am Oliva's esophagus chronic January 26, 2025 11:16am Duodenogastric bile reflux chronic January 26, 2025 11:16am NAFLD (nonalcoholic fatty li sharon disease) chronic January 26, 2025 11:16am [facility] Work Phone: 1(173) 774-987204-16-2025 Evaluation note* Diagnosis Onset Date Resolution Status Admit Date Cirrhosis acute January 26 11:16am Oliva's esophagus chronic January 26, 2025 11:16am Duodenogastric bile reflux chronic January 26, 2025 11:16am NAFLD (nonalcoholic fatty li sharon disease) chronic January 26, 2025 11:16am NAFLD (nonalcoholic fatty li sharon disease) chronic February 02, 2025 2:26pm [facility] Work Phone: 1(519) 130-245504-16-2025 Evaluation note* Diagnosis Onset Date Resolution Status Admit Date Cirrhosis acute January 26 11:16am Oliva's esophagus chronic January 26, 2025 11:16am Duodenogastric bile reflux chronic January 26, 2025 11:16am NAFLD (nonalcoholic fatty li sharon disease) chronic January 26, 2025 11:16am NAFLD (nonalcoholic fatty li sharon disease) chronic February 02, 2025 2:26pm Diarrhea acute April 06 3:18pm [facility] Work Phone: 1([phone]) 973-587704-16-2025 Evaluation note* Diagnosis Onset Date Resolution Status Admit Date Cirrhosis acute January 26 11:16am Oliva's esophagus chronic January 26, 2025 11:16am Duodenogastric bile reflux chronic January 26, 2025 11:16am NAFLD (nonalcoholic fatty li sharon disease) chronic January 26, 2025 11:16am NAFLD (nonalcoholic fatty li sharon disease) chronic February 02, 2025 2:26pm Diarrhea acute April 06 3:18pm NAFLD (nonalcoholic fatty li sharon disease) chronic April 06, 2025 3:18pm [facility] Work Phone: [phone]) 704-185404-16-2025 Procedure note [facility] Medical Records Department [address] [place] [address] EGD Report MR#: [id number] Acct: [id number] Name: ASTRID DUMONT Rep #:[id number] : 1955 69 From: Abdi Jackson DO PCP: Dr. Duong Durham MD Status:[facility] Patient Name: Astrid Dumont Procedure Date: 01/26/2025 12:52 PM Date of : 1955 Age: 69 Procedure: Upper GI endoscopy Indications: Cirrhosis with suspected esophageal varices Providers: Abdi Jackson DO Medicines: Monitored Anesthesia Care Patient Profile: This is a 69 year old female. Refer to note in patient chart for documentation of history and physical. Patient has symptoms of chronic heartburn. Complications: No immediate complications. Procedure: Pre-Anesthesia Assessment: - Prior to the procedure, a History and Physical was performed, and patient medications and allergies were reviewed. The patient is competent. The risks and benefits of the procedure and the sedation options and risks were discussed with the patient. All questions were answered and informed consent was obtained. Patient identification and proposed procedure were verified by the physician in the pre-procedure area. Mental Status Examination: alert and oriented. Airway Examination: normal oropharyngeal airway and neck mobility. Respiratory Examination: clear to auscultation. CV Examination: normal. Prophylactic Antibiotics: The patient does not require prophylactic antibiotics. Prior Anticoagulants: The patient has taken no anticoagulant or antiplatelet agents. ASA Grade Assessment: III - A patient with severe systemic disease. After reviewing the risks and benefits, the patient was deemed in satisfactory condition to undergo the procedure. The anesthesia plan was to use monitored anesthesia care (MAC). Immediately prior to administration of medications, the patient was re-assessed for adequacy to receive sedatives. The heart rate, respiratory rate, oxygen saturations, blood pressure, adequacy of pulmonary ventilation, and response to care were monitored throughout the procedure. The physical status of the patient was re-assessed after the procedure. After obtaining informed consent, the endoscope was passed under direct vision. Throughout the procedure, the patient's blood pressure, pulse, and oxygen saturations were monitored continuously. The Endoscope was introduced through the mouth, and advanced to the second part of duodenum. The upper GI endoscopy was accomplished without difficulty. The patient tolerated the procedure well. Scope In: 1:03:36 PM Scope Out: 1:08:48 PM Total Procedure Duration Time 0 hours 5 minutes 12 seconds Findings: Small (< 5 mm) varices were found in the middle third of the esophagus and in the lower third of the esophagus. They were 5 mm in largest diameter. There were esophageal mucosal changes secondary to established long-segment Oliva's disease present in the lower third of the esophagus. The maximum longitudinal extent of these mucosal changes was 6 cm in length. Mucosa was biopsied with a cold forceps for histology in a targeted manner at intervals of 1 cm in the lower third of the esophagus. One specimen bottle was sent to pathology. Verification of patient identification for the specimen was done. Estimated blood loss was minimal. Mild portal hypertensive gastropathy was found in the cardia, in the gastric fundus and in the gastric body. Localized moderate inflammation characterized by erosions, erythema and friability was found in the gastric body. Biopsies were taken with a cold forceps for Helicobacter pylori testing. Verification of patient identification for the specimen was done. Estimated blood loss was minimal. The examined duodenum was normal. Impression: - Small (< 5 mm) esophageal varices. 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 Biopsied. - Portal hypertensive gastropathy. - Chronic gastritis. Biopsied. - Normal examined duodenum. Recommendation: - Discharge patient to home. - Resume previous diet. - Continue present medications. - Await pathology results. - Repeat upper endoscopy. Procedure Code(s): --- Professional --- 09098, Esophagogastroduodenoscopy, flexible, transoral; with biopsy, single or multiple CPT copyright 2021 [employer]. All rights reserved. The codes documented in this report are preliminary and upon marine transport professionals review may be revised to meet current compliance requirements. Abdi Jackson DO 01/26/2025 1:14:11 PM This report has been signed electronically. Number of Addenda: 0 Note Initiated On: 01/26/2025 12:52 PM 01/26/25 1314 Date _ Abdi Jackson DO Cosigner Signature: Date (if indicated) CC: Dr. Duong Durham MD; Abdi Jackson DO ~ Date Dictated: 01/26/25 1252 Date Transcribed: Automatic Steel Tie Adjuster: RF Signed [facility]04-16-2025 Procedure note [facility] Medical Records Department [address] [place] [address] Operative Report - CC Letter MR#: [id number] Acct: [id number] Name: ASTRID DUMONT JENNIFER Rep #:[id number] : 1955 69 From: Abdi Jackson DO PCP: Dr. Duong Durham MD Status:RE [place] [facility]/26/2025 Duong Durham [address] [place] [address] Re : Upper GI endoscopy procedure for Astrid Dumont Dear Dr. Durham This procedure was performed on Sunday, January 26, 2025. My impressions and recommendations are as follows: Impressions : - Small (< 5 mm) esophageal varices. 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 Biopsied. - Portal hypertensive gastropathy. - Chronic gastritis. Biopsied. - Normal examined duodenum. Recommendations : - Discharge patient to home. - Resume previous diet. - Continue present medications. - Await pathology results. - Repeat upper endoscopy. My findings are described in the full procedure note, which is enclosed. If I can be of further assistance, please feel free to contact me at . Sincerely, Abdi Jackson DO 01/26/2025 1:14:11 PM This report has been signed electronically. 01/26/25 1314 Date _ Abdi aJckson DO Cosigner Signature: Date (if indicated) CC: Dr. Duong Durham MD; Abdi Jackson DO ~ Date Dictated: 01/26/25 1252 Date Transcribed: Automatic Steel Tie Adjuster: RF Signed [facility]04-16-2025 History and physical note [facility] Medical Records Department [address] [place] [address] History & Physical Exam 01/26/25 1209 MR#: [id number] Acct: [id number] Name: ASTRID DUMONT JENNIFER Rep #:[id number] : 1955 69 From: Abdi Jackson DO PCP: Dr. Duong Durham MD Status:[facility] Location: [place] [address] HPI - General General Date of Admission: 01/26/25 Date of Service: 01/26/25 Chief Complaint: oliva's esophagus HPI Narrative ASTRID DUMONT, is a 69 F who presents for surveillance of Oliva's esophagus . Last visit 12.19.22 for discussion of EGD and colonoscopy results. She saw her primary care physician Dr Durham since her endoscopies and he started her on omeprazole 40 mg qam for new diagnosis ofBarrett's esophagus. EGD had appearance of long-segment Oliva's which was confirmed on biopsy, negative for dysplasia; significant bile in the stomach; no pathologic diagnosis from duodenal biopsies. Colonoscopy revealed diverticulosis, no pathologic diagnosis from random colon biopsies. Diarrhea is significantly improved with cholestyramine in morning, doesn't seem like it lasts all day, loperamide in pm. treated with vancomycin for C diff. positive for C diff A/B antigen, negative for C diff toxin, positive for PCR. negative test for EPI, neg for Crohn's, neg for celiac 20 yr hx of IBS-D. Viberzi was effective but cost prohibitive. No dietary triggers in particular. No relief with Lotronex. Never on xifaxan. Never on lomotil. On metformin for 15 yrs. Tested negativefor celiac in 2017. Normal fecal elastase in 2021. No melena or hematochezia. Gets a discomfort in the LLQ before diarrhea, that resolves after having multiple bouts of diarrhea in the morning. 12/23/22 EGD and Colonoscopy Impression: - Esophageal mucosal changes consistent with long-segment Oliva's esophagus. Biopsied. - Bile gastritis. - Erythematous duodenopathy. Biopsied. Impression: - Congested mucosa in the sigmoid colon, at the splenic flexure and at the hepatic flexure. Biopsied. - Diverticulosis in the sigmoid colon. MICROSCOPIC DIAGNOSIS A. Duodenum, biopsy: Fragments of duodenal mucosa, no pathologic diagnosis. B. Distal esophagus, biopsy: Fragments of gastroesophageal mucosa with intestinal metaplasia (goblet cell metaplasia), consistent with Oliva's esophagus. Chronic inflammation. Negative for dysplasia. See comment. C. Colon, random biopsy: Fragments of colonic mucosa, no pathologic diagnosis. US abd limited .03.26.2021- Liver measures 21.6cm with fatty infiltration OV 09.29.23- Pt here to follow up regarding her liver. [facility]. Says she was told she had fatty liver before. Diarrhea has been controlled with cholestyramine and prn Lomotil. Denies abdominal pain, cramping and bloating. Heartburn is controlled with Omeprazole. US abd/ elastography 12.20.23- Liver measures 20.7cm Stiffness 8.1kPa EGD 12.22.23- Long segment Oliva's Esophagus, acute gastritis Pathology: extensive intestinal metaplasia, neg. dysplasia Fib-4 .07.06 1.47 OV 01.27.24- Pt stable since last visit. States her bowels are normal as long as she takes one Lomotil in the morning and the Cholestyramine in the evening. Denies any abdominal pain, cramping or bloating. No heartburn. Continues Omeprazole 40 mg daily. Magnesium is low even she is taking magnesium oxide 400mg twice daily. Discussed the lab, EGD findings, pathology and imaging OV 07.23.24 Pt has been doing well since last visit. She started Ozempic a few months back and was having some diarrhea from this. She stopped if for her trip to [place] but has since restarted it. Her diarrhea is controlled now with Lomotil daily and cholestyramine daily. If she has more diarrhea she says she will take more. 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 Overall she is happy with how she is doing. [facility] Medical History History of renal disease Restless legs Non-smoker Post-menopausal Cancer Thyroid disease Diabetes Inflammatory arthritis Arthritis Kidney stones High cholesterol History of IBS History of stress test History of irregular heartbeat Home Medications ?Medication ?Instructions ?Recorded ?Last Taken ?Type atorvastatin 10 mg tablet 10 mg PO QHS 03/01/15 Unknow n History hydrochlorothiazide 25 mg tablet 25 mg PO DAILY Unknown History levothyroxine 75 mcg tablet 75 mcg PO DAILY 03/01/15 1 08:00 History metformin 1,000 mg tablet 1,000 mg PO BIDCM 03/01/15 U nknown History multivitamin with folic acid 400 1 tab PO DAILY Unknown History mcg tablet (Thera) cetirizine 10 mg capsule (All Day 10 mg PO PRN PRN ALL ERGIES 03/15/15 Unknown History Allergy (cetirizine)) calcium carbonate 1,000 mg PO DAILY 08/12/18 U nknown History hydroxychloroquine 200 mg tablet 200 mg PO BID 8 Unknown History (Plaquenil) escitalopram oxalate 10 mg tablet 10 mg PO DAILY 07/23 Unknown History blood sugar diagnostic (FreeStyle 08/06/22 Unknown Hi story Test strips) cholecalciferol (vitamin D3) 50 50 mcg PO DAILY Unknown History mcg (2,000 unit) capsule empagliflozin 25 mg tablet 25 mg PO DAILY 08/06/22 Unk nown History (Jardiance) melatonin 5 mg capsule 5 mg PO QHS PRN sleep Unknown History potassium citrate 5 mEq (540 mg) 1,620 mg PO BID 08/06 Unknown History tablet,extended release (Urocit-K 5) allopurinol 300 mg tablet 100 mg PO DAILY 10/18/22 Unk nown History atenolol 25 mg tablet 25 mg PO DAILY 10/18/2212/11 04:30 History semaglutide 0.25 mg or 0.5 mg (2 0.5 mg subcut QWEEK 1 01/14/25 History mg/3 mL) subcutaneous pen injector (Ozempic) pantoprazole 40 mg tablet,delayed 40 mg PO BID acid re flux 90 days 08/16/24 Unknown Rx release #180 tabs magnesium chloride 64 mg 128 mg (2 x 64 mg magnesium) PO 12/16/24 Unknown Rx (magnesium chloride) tablet DAILY #120 tabs diphenoxylate-atropine 2.5 1 tab PO Q8H PRN diarrhea 0 01/20/25 Unknown History mg-0.025 mg tablet Allergy/AdvReac Type Severity Reaction Status Date / Time acetaminophen (From Vicodin) Allergy Other Verified 01/20/25 13:30 hydrocodone (From Vicodin) Allergy Other Verified 01/20/25 13:30 Sulfa (Sulfonamide Allergy Rash Verified 01/20/25 13:30 Antibiotics) Family History Brother Leukemia Brother No problems noted. Father No problems noted. Mother Osteoarthritis Daughter No problems noted. Son No problems noted. Daughter No problems noted. Surgical History Hx of section Hx of glossectomy Hx of nephrostomy History of wisdom tooth extraction History of lithotripsy History of ureteroscopy History of partial knee replacement Hx of repair of rotator cuff History of lingual frenulectomy Social History Smoking Status: Never smoker alcohol intake: never substance use type: does not use ROS Constitutional Constitutional: Denies fatigue, fever(s), poor appetite, weight gain or weight loss Gastrointestinal Gastrointestinal: Denies belching, bloating, change in bowel habits, change in stool character, chewing difficulty, coffee ground emesis, constipation, cramping, diarrhea, dyspepsia, dysphagia, earlysatiety, excessive flatus, fecalincontinence, heartburn, hematemesis, hematochezia, hemorrhoids, loose stools, melena, nausea, odynophagia, rectal bleeding, tenesmus, vomiting or weight changes Physical Exam Const alert, oriented x3, no apparent distress and healthy appearing General Appearance: cooperative GI normal to inspection, nondistended, normoactive bowel sounds, soft to palpation,non-tender and non-distended Percussion: normal to percussion Rectal Exam: deferred Assessment & Plan Assessment/Plan (1) Oliva's esophagus: QUALIFIERS: Oliva's esophagus type: without dysplasia QualifiedCode(s): K22.70 - Oliva's esophagus without dysplasia (2) Cirrhosis: (3) NAFLD (nonalcoholic fatty liver disease): (4) Duodenogastric bile reflux: PLAN: Plan Assessment and Plan Assessment and Plan (1) NAFLD (nonalcoholic fatty liver disease): Status: Chronic Plan: Pt is a 69 yo female here today for f/u. She is being seen here with I for herfatty liver. Her last elastography showing hepatomegaly and liver stiffness of 8.1 kPa. She started ozempic for her diabetes recently which in turn may help with her fatty liver. She is having some side effects from this medication like diarrhea and nausea but she is willing to try it for a little longer. Her diarrheais currently controlled with Lomotil daily and cholestyramine daily. She will increase the lomotil as needed.Liver elastography ordered for her to have before her next appointment in 6 months. Her last EGD in December of 2023 showed Oliva esophagus. I let her know she will need to have another in 6 months to ensure this is not progressing. She is on pantoprazole daily and I explained the importance of continue it. -Liver elastography -EGD -Continue pantoprazole -Continue Lomotil and cholestyramine -f/u in 6 months (2) Oliva's esophagus: Status: Chronic Qualifiers: Oliva's esophagus type: without dysplasia Qualified Code(s): K22.70 -Oliva's esophagus without dysplasia (3) Irritable bowel syndrome with diarrhea: Status: Chronic Orders: Orders ABD Limited w/ Elastography 4 Months K76.0 - Fatty (change of) liver, not elsewhere classified 01/26/25 1211 Cosigner Signature (if applicable): CC: Dr. Duong Durham MD; Abdi Jackson DO~ Signed [facility]04-16-2025 [facility] Medical Records Department [address] [place] [address] History Physical Exam 01/26/25 1209 MR#: [id number] Acct: [id number] Name: ASTRID DUMONT JENNIFER Rep #: [id number] : 1955 69 From: Abdi Jackson DO PCP: Dr. Duong Durham MD Status:[facility] Location: [place] [address] HPI - General General Date of Admission: 01/26/25 Date of Service: 01/26/25 Chief Complaint: oliva's esophagus HPI Narrative ASTRID DUMONT, is a 69 F who presents for surveillance of Oliva's esophagus . Last visit 12.19.22 for discussion of EGD and colonoscopy results. She saw her primary care physician Dr Durham since her endoscopies and he started her on omeprazole 40 mg qam for new diagnosis of Oliva's esophagus. EGD had appearance of long-segment Oliva's which was confirmed on biopsy, negative for dysplasia; significant bile in the stomach; no pathologic diagnosis from duodenal biopsies. Colonoscopy revealed diverticulosis, no pathologic diagnosis from random colon biopsies. Diarrhea is significantly improved with cholestyramine in morning, doesn't seem like it lasts all day, loperamide in pm. treated with vancomycin for C diff. positive for C diff A/B antigen, negative for C diff toxin, positive for PCR. negative test for EPI, neg for Crohn's, neg for celiac 20 yr hx of IBS-D. Viberzi was effective but cost prohibitive. No dietary triggers in particular. No relief with Lotronex. Never on xifaxan. Never on lomotil. On metformin for 15 yrs. Tested negative for celiac in 2017. Normal fecal elastase in 2021. No melena or hematochezia. Gets a discomfort in the LLQ before diarrhea, that resolves after having multiple bouts of diarrhea in the morning. 12/23/22 EGD and Colonoscopy Impression: - Esophageal mucosal changes consistent with long-segment Oliva's esophagus. Biopsied. - Bile gastritis. - Erythematous duodenopathy. Biopsied. Impression: - Congested mucosa in the sigmoid colon, at the splenic flexure and at the hepatic flexure. Biopsied. - Diverticulosis in the sigmoid colon. MICROSCOPIC DIAGNOSIS A. Duodenum, biopsy: Fragments of duodenal mucosa, no pathologic diagnosis. B. Distal esophagus, biopsy: Fragments of gastroesophageal mucosa with intestinal metaplasia (goblet cell metaplasia), consistent with Oliva's esophagus. Chronic inflammation. Negative for dysplasia. See comment. C. Colon, random biopsy: Fragments of colonic mucosa, no pathologic diagnosis. US abd limited .03.26.2021- Liver measures 21.6cm with fatty infiltration OV 09.29.23- Pt here to follow up regarding her liver. Received fax from [facility] to review her elevated LFT's. Says she was told she had fatty liver before. Diarrhea has been controlled with cholestyramine and prn Lomotil. Denies abdominal pain, cramping and bloating. Heartburn is controlled with Omeprazole. US abd/ elastography 12.20.23- Liver measures 20.7cm Stiffness 8.1kPa EGD 12.22.23- Long segment Oliva's Esophagus, acute gastritis Pathology: extensive intestinal metaplasia, neg. dysplasia Fib-4 .07.06 1.47 OV 01.27.24- Pt stable since last visit. States her bowels are normal as long as she takes one Lomotil in the morning and the Cholestyramine in the evening. Denies any abdominal pain, cramping or bloating. No heartburn. Continues Omeprazole 40 mg daily. Magnesium is low even she is taking magnesium oxide 400 mg twice daily. Discussed the lab, EGD findings, pathology and imaging OV 07.23.24 Pt has been doing well since last visit. She started Ozempic a few months back and was having some diarrhea from this. She stopped if for her trip to [place] but has since restarted it. Her diarrhea is controlled now with Lomotil daily and cholestyramine daily. If she has more diarrhea she says she will take more. 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 Overall she is happy with how she is doing. [facility] Medical History History of renal disease Restless legs Non-smoker Post-menopausal Cancer Thyroid disease Diabetes Inflammatory arthritis Arthritis Kidney stones High cholesterol History of IBS History of stress test History of irregular heartbeat Home Medications ???Medication ???Instructions ???Recorded ???Last Taken ???Type atorvastatin 10 mg tablet 10 mg PO QHS 03/01/15 Unknown Hist ory hydrochlorothiazide 25 mg tablet 25 mg PO DAILY 03/01/15 Unknown Hi story levothyroxine 75 mcg tablet 75 mcg PO DAILY 03/01/15 07/30/19 08:00 History metformin 1,000 mg tablet 1,000 mg PO BIDCM 03/01/15 Unknown History multivitamin with folic acid 400 1 tab PO DAILY 03/01/15 Unknown Hi story mcg tablet (Thera) cetirizine 10 mg capsule (All Day 10 mg PO PRN PRN ALLERGIES Unknown History Allergy (cetir (more content not included)...[facility] 01-26-2025 Consult note [facility] Medical Records Department [address] [place] [address] Pre-Anesthesia Evaluation 01/26/25 1150 MR#: [id number] Acct: [id number] Name: ASTRID DUMONT JENNIFER Rep #:[id number] : 1955 69 From: Arthur Rawls MD PCP: Dr. Duong Durham MD Status: Umm [facility]: C Location: [facility]15-1 ASA Classification* ASA Classification ASA Classification: 3 Assessment & Plan Anesthesia* Anesthesia Assessment Anesthesia Assessment: Discussed sedation and/or anesthesia options, risks, benefits, and alternatives with patient/parents/legal guardian/POA. Questions invited. The patient/parents/legal guardian/POA seems to understand and agrees to proceedwith anesthesia plan. Reviewed the physical assessment, medical history, allergy history and patient home medications list prior to surgery/procedure/anesthetic and documented any changes. Performed airway and anesthesia risk assessments. Anesthesia Type Anesthesia Type: MAC Anesthesia Focused Assessment* Airway Assessment Mouth opens: >3 cm Mallampati Score: II Focused Labs Anesthesia Preop lab: CBC WBC 6.1 K/mm3 (4.4-11.0) 11/23/24 07:09 11/23/24 RBC 5.09 M/mm3 (4.2-5.4) 11/23/24 07:09 11/23/24 Hgb 14.8 g/dL (12.0-15.0) 11/23/24 07:09 11/23/24 Hct 44.6 % (37-47) 11/23/24 07:09 11/23/24 Plt Count 234 K/mm3 (150-450) 11/23/24 07:09 11/23/24 CHEMISTRY Potassium 3.9 mmol/L (3.5-5.1) 11/23/24 07:09 11/23/24 Sodium 138 mmol/L (136-145) 11/23/24 07:09 11/23/24 Magnesium 1.5 mg/dL (1.6-2.6) L 11/23/24 07:09 11/23/24 Phosphorus 4.2 mg/dL (2.5-4.9) 08/12/24 06:49 08/12/24 BUN 16 mg/dL (7-18) 11/23/24 07:09 11/23/24 Creatinine 0.98 mg/dL (0.55-1.02) 11/23/24 07:09 11/23/24 Glucose 165 mg/dL (74-106) H 11/23/24 07:09 11/23/24 POC Glucose 206 mg/dL (74-106) H 12/22/23 05:48 12/22/23 TSH 5.590 uIU/mL (0.358-3.740) H 11/23/24 07:09 COAG PT 13.6 SECONDS (11.7-14.9) 08/12/24 06:49 10/31/ 24 Pre-Assessment Diagnosis/Proposed Procedure Planned Operative Procedure(s): EGD Anesthesia History 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 When Was Last Pacemaker Check QUESTION #4 FULL TEXT: You/Your Family Experience fever (hyperthermia) with Anesthesia Last Oral Intake Last Oral intake: Last Oral Intake NPO since Meds taken in AM with sips of water? 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 Female Yes 01/20/25 13:36 HX of Motion Sickness No 01/20/25 13:36 HX of N/V After Surgery Yes 01/20/25 13:36 Non-Smoker Yes 01/20/25 13:36 Duration of Surgery greater No 01/20/25 13:36 than 60 minutes Number of Risk Factors 3 01/20/25 13:36 PONV Score Moderate Risk 01/20/25 13:36 Height & Weight Height & Weight: Anesthesia: Height & Weight Height 5 ft 2 in 01/27/24 14:59 Respiratory Assessment Respiratory Assessment - assistant professor of archaeology: Respiratory Tract Infection Hx - assistant professor of archaeology Hx Respiratory Tract Infection No 01/20/25 13:36 STOP Sleep Apnea STOP Sleep Apnea - assistant professor of archaeology: STOP Sleep Apnea - assistant professor of 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 Has anyone observed you stop No 01/20/25 13:36 breathing during sleep? STOP Results Negative 01/20/25 13:36 QUESTION #5 FULL TEXT : Do you snore loudly (louder than talking or can be heard through closeddoors)? 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 Specify any problems Hx of Preganancy in last 3 No 01/20/25 13:36 Months Nurse Filling Out Transfusion [facility] 01/20/25 13:36 & Questions: Date: 01/20/25 01/20/25 13:36 Time: 13:44 01/20/25 13:36 Patient unable to answer at this time (ie. 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: /Reproductive Hx- assistant professor of archaeology Hx Now No 01/20/25 13:36 Gestational Age (in weeks): EDC: Hx Hx Para [facility] History History of renal disease Restless legs Non-smoker Post-menopausal Cancer Thyroid disease Diabetes Inflammatory arthritis Arthritis Kidney stones High cholesterol History of IBS History of stress test History of irregular heartbeat Home Medications ?Medication ?Instructions ?Recorded ?Last Taken ?Type atorvastatin 10 mg tablet 10 mg PO QHS 03/01/15 Unknow n History hydrochlorothiazide 25 mg tablet 25 mg PO DAILY Unknown History levothyroxine 75 mcg tablet 75 mcg PO DAILY 03/01/15 1 08:00 History metformin 1,000 mg tablet 1,000 mg PO BIDCM 03/01/15 U nknown History multivitamin with folic acid 400 1 tab PO DAILY Unknown History mcg tablet (Thera) cetirizine 10 mg capsule (All Day 10 mg PO PRN PRN ALL ERGIES 03/15/15 Unknown History Allergy (cetirizine)) calcium carbonate 1,000 mg PO DAILY 08/12/18 U nknown History hydroxychloroquine 200 mg tablet 200 mg PO BID 8 Unknown History (Plaquenil) escitalopram oxalate 10 mg tablet 10 mg PO DAILY 07/23 Unknown History blood sugar diagnostic (FreeStyle 08/06/22 Unknown Hi story Test strips) cholecalciferol (vitamin D3) 50 50 mcg PO DAILY Unknown History mcg (2,000 unit) capsule empagliflozin 25 mg tablet 25 mg PO DAILY 08/06/22 Unk nown History (Jardiance) melatonin 5 mg capsule 5 mg PO QHS PRN sleep Unknown History potassium citrate 5 mEq (540 mg) 1,620 mg PO BID 08/06 Unknown History tablet,extended release (Urocit-K 5) allopurinol 300 mg tablet 100 mg PO DAILY 10/18/22 Unk nown History atenolol 25 mg tablet 25 mg PO DAILY 10/18/2212/11 04:30 History semaglutide 0.25 mg or 0.5 mg (2 0.5 mg subcut QWEEK 1 01/14/25 History mg/3 mL) subcutaneous pen injector (Ozempic) pantoprazole 40 mg tablet,delayed 40 mg PO BID acid re flux 90 days 08/16/24 Unknown Rx release #180 tabs magnesium chloride 64 mg 128 mg (2 x 64 mg magnesium) PO 12/16/24 Unknown Rx (magnesium chloride) tablet DAILY #120 tabs diphenoxylate-atropine 2.5 1 tab PO Q8H PRN diarrhea 0 01/20/25 Unknown History mg-0.025 mg tablet Allergy/AdvReac Type Severity Reaction Status Date / Time acetaminophen (From Vicodin) Allergy Other Verified 01/20/25 13:30 hydrocodone (From Vicodin) Allergy Other Verified 01/20/25 13:30 Sulfa (Sulfonamide Allergy Rash Verified 01/20/25 13:30 Antibiotics) Family History Brother Leukemia Brother No problems noted. Father No problems noted. Mother Osteoarthritis Daughter No problems noted. Son No problems noted. Daughter No problems noted. Surgical History Hx of section Hx of glossectomy Hx of nephrostomy History of wisdom tooth extraction History of lithotripsy History of ureteroscopy History of partial knee replacement Hx of repair of rotator cuff History of lingual frenulectomy Social History Smoking Status: Never smoker alcohol intake: never substance use type: does not use Review of Systems (Anesthesia) ROS Narrative System reviewed and no additional complaints, except as documented. 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 She is s/p control of oropharyngeal bleed on 07/24/22. Patient presents today for scheduled follow up. She had follow up with Dr. Reeves several months ago and no new tongue or mouth lesions. She denies mouth sores and neck mass. Nursing documentation has been reviewed. 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 420 mL 0 Clotrimazole 10 MG Dayday Take 1 tablet by mouth 5 times daily for 7 days. 35 tablet 0 escitalopram 5 MG tablet Take 2 tablets by mouth daily every morning. First-BLM mouthwash (commercial containing Lfdnyrmdb-Xwztierwy-Ec/MgHydr-Simeth) 1 tbsp Q4-6 hrs PRN mouth pain. [...] 1 tablet by mouth daily every morning. Pantoprazole Sodium (pantoprazole, [id number],) 40 MG tablet Take 1 tablet by mouth daily. Potassium Citrate 15 MEQ (1620 MG) Tab CR 1 No current facility-administered medications for this visit. Allergies Allergen Reactions *Seasonal Sulfa Antibiotics Rash Exam: BP 111/56 (BP Location: Right arm, BP Position: Sitting) Pulse 93 Temp 97.5 F (36.4 C) (Temporal) Resp 16 Wt 83 kg (183 lb) SpO2 96% BMI 33.47 kg/m Smoking Status Never Documented vital signs from today's visit reviewed. Physical exam including head and neck examination of the oral cavity, oropharynx, larynx, and hypopharynx including indirect mirror exam as well asinspection and palpation of the face, parotid and neck is remarkable for findings consistent with posttreatment postoperative changes and negative for new lesions, masses or lymphadenopathy. No active infection. Airway is adequate. 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 WILLY on exam today. - Follow up with Dr. Reeves as scheduled in 2-3 months - Follow up in surveillance in [address] Bingham or sooner if needed. * Emma Guido RN - 12/14/2024 3:00 PM EST Arrived to clinic ambulatory accompanied by friend. Pt is here for follow up she denies any complaints [facility] Instructions* Patient Instructions* Maryanne Frausto RN - 12/14/2024 3:00 PM EST Please call [phone] if you have any of the following symptoms for longer than 2 weeks, as we may need to see you sooner than your regularly scheduled follow up: New lumps in the head or neck area New onset of difficulty with swallowing Persistent ear pain Hoarseness New pains in head and neck Call [phone] to reschedule and have your doctor see you sooner if you have these symptoms for 2 weeks or more. We would like to hear from you because your opinion matters! We know your time is valuable, but we would greatly appreciate it if you would please complete yourPatient Satisfaction Survey and let us know how we are doing. Your feedback will help us to make positive changes to improve clinical outcomes for you and future patients alike. For any questions or concerns, or to share your recent clinic experience please call our Patient Experience Advocate at [phone]. 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 She is s/p control of oropharyngeal bleed on 07/24/22. Patient presents today for scheduled follow up. She reports that she is feeling well. She denies new tongue sores and neck mass. She continues to have some mouth sensitivity at times with oranges or acidic foods, but nothing worsening. Nursing documentation has been reviewed. Past Medical [...] hours for 14 days. 420 mL 0 Clotrimazole 10 MG Dayday Take 1 tablet by mouth 5 times daily for 7 days. 35 tablet 0 escitalopram 5 MG tablet Take 2 tablets by mouth daily every morning. First-BLM mouthwash (commercial containing Surfmcnnw-Ihfukwzik-Bs/MgHydr-Simeth) 1 tbsp Q4-6 hrs PRN mouth pain. [...] Reactions *Seasonal Sulfa Antibiotics Rash Exam: BP 136/61 Pulse 75 Temp 97.9 F (36.6 C) (Temporal) Resp 16 Wt 87.5 kg (192 lb 14.4 oz) SpO2 94% BMI 35.28 kg/m Smoking Status Never ' Documented vital signs from today's visit reviewed. Physical exam including head and neck examination of the oral cavity, oropharynx, larynx, and hypopharynx including indirect mirror exam as well asinspection and palpation of the face, parotid and neck is remarkable for findings consistent with posttreatment postoperative changes and negative for new lesions, masses or lymphadenopathy. No active infection. Airway is adequate. 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 WILLY on exam today. - Follow up with Dr. Reeves - Follow up in surveillance in 6 months * Ricky Bingham MD - 06/23/2024 1:45 PM EDT Attending Physician Note I independently interviewed, examined and formulated the medical decision making. Details of my interview, examination findings, and medical decision- making confirmed the findings above. I have personally amended the below documentation where appropriate. I saw this patient with Heather Sánchez and pe rsonally wrote the impression and plan. Impression/Plan: Doing well, no evidence of disease. Continue tumor surveillance. [facility] Instructions* Patient Instructions* Maribel Durán RN - 06/23/2024 1:45 PM EDT Please call Dr. Bingham's nurse, Maribel, at [phone] if you notice any new lumps in head or neck, new onset of difficulty with swallowing, persistent ear pain, hoarseness or new pain in head and neckthat does not go away for 2 weeks. 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 She is s/p control of oropharyngeal bleed on 07/24/22. Patient presents today for scheduled follow up. She reports that she is feeling well. She denies new tongue sores and neck mass. She continues to have some mouth sensitivity at times with oranges or acidic foods, but nothing worsening. Nursing documentation has been reviewed. Past Medical [...] daily every morning. First-BLM mouthwash (commercial containing Snufmptjg-Igtphjynj-Jz/MgHydr-Simeth) 1 tbsp Q4-6 hrs PRN mouth pain. Swish x 1 min, then spit. (Patient not taking: Reported on 06/25/2023) 237 mL 1 Gabapentin (Neurontin) 100 MG [...] Reactions *Seasonal Sulfa Antibiotics Rash Exam: BP 141/67 Pulse 72 Temp 97.9 F (36.6 C) (Oral) Resp 20 Wt 88 kg (193 lb 14.4 oz) SpO2 95%Comment: room air BMI 35.46 kg/m Smoking Status Never ' Documented vital signs from today's visit reviewed. Physical exam including head and neck examination of the oral cavity, oropharynx, larynx, and hypopharynx including indirect mirror exam as well asinspection and palpation of the face, parotid and neck is remarkable for findings consistent with posttreatment postoperative changes and negative for new lesions, masses or lymphadenopathy. No active infection. Airway is adequate. 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 She is s/p control of oropharyngeal bleed on 07/24. WILLY on exam today. - Follow up with Dr. Reeves - Follow up in surveillance in 6 months documented in this encounter[facility]03-19-2024 Instructions* Patient Instructions* Maryanne Frausto RN - 12/30/2023 2:30 PM EDT Please call [phone] if you notice any new lumps in head or neck, new onset of difficulty with swallowing, persistent ear pain, hoarseness or new pains in head and neck that don't go away for 2 weeks. We would like to hear from you because your opinion matters! We know your time is valuable, but we would greatly appreciate it if you would please complete yourPatient Satisfaction Survey and let us know how we are doing. Your feedback will help us to make positive changes to improve clinical outcomes for you and future patients alike. For any questions or concerns, or to share your recent clinic experience please call our Patient Experience Advocate, Dipti Bolanos at [phone]. 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 She is s/p control of oropharyngeal bleed on 07/24/22. Patient presents today for scheduled follow up. Last visit February. She had biopsies with Dr. Lala snider. Since the last visit she has had [...] daily every morning. First-BLM mouthwash (commercial containing Srfrpvbvq-Uchdrckya-Md/MgHydr-Simeth) 1 tbsp Q4-6 hrs PRN mouth pain. [...] hypopharynx including indirect mirror exam as well asinspection and palpation of the face, parotid and neck is remarkable for findings consistent with posttreatment postoperative changes and negative for new lesions, masses or lymphadenopathy. No active infection. Airway is adequate. 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 She is s/p control of oropharyngeal bleed on 07/24. WILLY on exam today. - Follow up with Dr. Reeves - Follow up in surveillance in 4 months * Ricky Bingham MD - 06/25/2023 2:15 PM EDT Attending Physician Note I independently interviewed, examined and formulated the medical decision making. Details of my interview, examination findings, and medical decision- making confirmed the findings above. I have personally amended the below documentation where appropriate. I saw this patient with Heather Sánchez and pe rsonally wrote the impression and plan. Impression/Plan: Doing well, no evidence of disease. Continue tumor surveillance. [id number] Instructions* Patient Instructions* Maribel Durán RN - 06/25/2023 2:15 PM EDT Please call Dr. Bingham's nurse at [phone] if you notice any new lumps in head or neck, new onsetof difficulty with swallowing, persistent ear pain, hoarseness or new pain in head and neck that does not go away for 2 weeks. For covid vaccine call [phone] ([phone]). documented in this encounter[facility]03-13-2023 History and physical note Author Abdi Jackson [facility] December 23, 2022 6:33am Note Date/Time December 23, 2022 6:3 3am [facility] Medical Records Department [address] [place] [id number] History & Physical Exam 12/23/22 0633 MR#: [id number] Acct: [id number] Name: ASTRID DUMONT JENNIFER Rep #:[id number] : 1955 67 From: Abdi Jackson DO PCP: Dr. Duong Durham MD Status:[facility] Location: [place] [address] History and Physical Date of Admission: 12/23/22 67 F who presents to the office today to establish for IBS-D. Started at least 20 yrs ago. The urgency has gotten worse, having accidents. Frustrating because she would like to travel now that she has retired. She has urgent, watery diarrhea, multiple bouts per day. She has had nocturnal diarrhea. Viberzi is effective but cost prohibitive. She supplements partial dose of Viberzi with loperamide w/ some benefit. No dietary triggers in particular. No relief with Lotronex. Never on xifaxan. Never on cholestryramine or colestipol. Never on lomotil. On metformin for 15 yrs. Tested negative for celiac in 2017. Normal fecal elastase in 2021. Due in 2022 for colonoscopy. No melena or hematochezia. Gets a discomfort in the LLQ before diarrhea, that resolves after having multiple bouts of diarrhea in the morning. Occurs after toast in the morning. Can occur w/o eating first too. No nausea, vomiting, dysphagia, heartburn, acid reflux. 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 ROS Const Constitutional: No fatigue, fever(s), frequent falls, headache(s) or weight change ENT ENT: No headache(s) or difficulty swallowing Cardio Cardiology: No leg pain with exertion Gastro GI: Positive for diarrhea; No abdominal pain, bloating, change in bowel habits, constipation, heartburn, difficulty swallowing, Vomiting blood/hematemesis, Blood in stool, nausea/dyspepsia or vomiting Musc Musculoskeletal: No abnormal gait, joint pain, back pain, joint swelling, musclecramps, muscle weakness, numbness, stiffness, tingling, Arthritis, sciatica, legpain at night or leg pain with exertion Skin Skin: No dry skin, lesions, itchy eyes or rash Neuro Neurology: No abnormal gait, dizziness, frequent falls, headache(s), numbness, tingling, tremor(s), Increased tone in limbs, paralysis or seizures Psych Psychiatric: No anxiety, No depression, No paranoia, No Behavioral Problems, No Compulsive Behavior, No hyperactivity, No inattentiveness, No obsessions/compulsions, No Temper Tantrums and No suicidal ideation Endo Endocrine: No fatigue or weight change Aller/Imm Allergy/Immunologic: No itchy eyes Alvin/Lymp Hematologic/Lymphatic: No easy bleeding or easy bruising Exam Const General: cooperative and comfortable Nutritional Appearance: obese Orientation: alert, awake and oriented x3 Eyes Sclera: sclerae normal Resp Effort & Inspection: normal respiratory effort GI Inspection: obesity Palpation: soft, no hepatosplenomegaly, no masses and nontender Neuro Gait: normal gait Psych Mood: euthymic mood Quality Reporting Tobacco Screening ([facility] 138) Smoking Status: Never smoker Assessment and Plan Assessment and Plan (1) Irritable bowel syndrome with diarrhea: ?Status:?Acute ?Plan: 67 yr old female with diagnosis of IBS-D. She has severe, urgent diarrhea including nocturnal diarrhea. Comorbidities include inflammatory arthritis, DM2,fatty liver, tongue cancer. Recent negative test for EPI. Will test for celiac, Crohn's, infection. Start with biochemical eval, then based on results decide re CT (possibly enterography) or MR. EGD and colonoscopy will be scheduled, will consider if capsule endoscopy needed too Rx cholestyramine once a day, consider adding psyllium husk Consider HIDA scan to check gallbladder function Will send her portal msg with results, see how cholestyramine is working, discuss next step f/u 2 wks after endoscopies to discuss results (2) Fatty liver: ?Status:?Acute ?Plan: We will address this later ? ? ? Orders: Orders Comprehensive Metabolic Profil Today K58.0 - Irritable bowel syndrome with diarrhea ? CRP Today K58.0 - Irritable bowel syndrome with diarrhea ? LDH Today K58.0 - Irritable bowel syndrome with diarrhea ? CBC W/Diff, Automated Today K58.0 - Irritable bowel syndrome with diarrhea, K58.9 - Irritable bowel syndrome without diarrhea ? Erythrocyte Sed Rate Today K58.0 - Irritable bowel syndrome with diarrhea ? GIOVANNY Comprehensive Panel Today K58.0 - Irritable bowel syndrome with diarrhea ? Calprotectin, Stool Today K58.0 - Irritable bowel syndrome with diarrhea ? Stool Lactoferrin/WBC Today K58.0 - Irritable bowel syndrome with diarrhea ? ANCA Today K58.0 - Irritable bowel syndrome with diarrhea ? Celiac Disease Profile Today K58.0 - Irritable bowel syndrome with diarrhea ? Immunoglobulins G/A/M/E Today K58.0 - Irritable bowel syndrome with diarrhea ? ROSEMARY + Protein Elect, Serum Today K58.0 - Irritable bowel syndrome with diarrhea ? Miscellaneous Lab Procedure Today K58.0 - Irritable bowel syndrome with diarrhea? ENTERIC PATHOGEN PANEL STOOL Today D84.9 - Immunodeficiency, unspecified, K58.0 - Irritable bowel syndrome with diarrhea, K58.9 - Irritable bowel syndrome without diarrhea ? Ova and Parasites 8623 Today K58.0 - Irritable bowel syndrome with diarrhea ? CDIFF (PCR) Today K58.0 - Irritable bowel syndrome with diarrhea ? Medications: New cholestyramine (with sugar) 4 gram ?? administer w/meal; avoid other meds within 1hr before or 4-6hr after dose 4 grams? PO DAILY 348.6 grams 2RF diarrhea ? ? Discontinued allopurinol ?? Discontinued Reason:? Duplicate Order ?? PO ? ? cholecalciferol (vitamin D3) (Vitamin D3) ?? Discontinued Reason:? Duplicate Order 2,000 units? PO DAILY ? ? I have examined the patient and the H&P has been reviewed. There are no clinicalchanges since date of exam. 12/23/22632 <Electronically signed by Abdi Jackson DO> Cosigner Signature (if applicable): CC: Dr. 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 First-BLM mouthwash (commercial containing Bnfkwvkbi-Wvfnvzonr-Es/MgHydr-Simeth) 1 tbsp Q4-6 hrs PRN mouth pain. [...] hypopharynx including indirect mirror exam as well asinspection and palpation of the face, parotid and neck is remarkable for findings consistent with posttreatment postoperative changes and negative for new lesions, masses or lymphadenopathy. Healing well. No active infection. Airway is adequate. 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 She is s/p control of oropharyngeal bleed on 07/24. WILLY on exam today. - will trial gabapentin for nerve pain - Clotrimazole dayday X 7 days - Follow up with Dr. Lala GUZMAN in 3 months or sooner if needed. documented in this encounter[facility]02-08-2023 Instructions* Patient Instructions* Maribel Durán RN - 11/20/2022 2:15 PM EST Please call Dr. Bingham's nurse at [phone] if you notice any new lumps in head or neck, new onsetof difficulty with swallowing, persistent ear pain, hoarseness or new pain in head and neck that does not go away for 2 weeks. For covid vaccine call [phone] ([phone]). documented in this encounter[facility]02-08-2023 Miscellaneous Notes* Addendum Note - Heather Sánchez PA-C - 11/20/2022 2:15 PM ESTAddended by: HEATHER SÁNCHEZ on: 11/20/2022 02:45 PM Modules accepted: Orders documented in this encounterOS[facility]02-08-2023 Note* Addendum Note - Heather Sánchez PA-C - 11/20/2022 2:15 PM ESTAddended by: HEATHER SÁNCHEZ on: 11/20/2022 02:45 PM Modules accepted: Orders [facility] History of Present illness Narrative* Shar Levine MD - 08/21/2022 3:15 PM EST Images from the original note were not included. Chief Complaint: SCCa Right Postero-Lateral Tongue HPI: 67 yo F, never smoker referred by Dr. Reeves for surgical evaluation of T1N0 SCCa right lateral tongue s/p Right partial glossectomy, Right selective neck dissection, levels I-IV, [place] of split-thickness skin graft 5 cm x 7 cm from right anterolateral thigh. She is s/p control of oropharyngeal bleed from dorsal lingual artery on 07/24/22. She is doing well and has had no oropharyngeal bleeding since her last visit. Continues to have a lisp while speaking. She noted a small knot near left neck incision- removed suture. Able to toleratePO diet. Denies neck masses, dysphagia, odynophagia, dyspnea, [...] daily every morning. First-BLM mouthwash (commercial containing Wjlbrznyn-Zwklttgbt-Gu/MgHydr-Simeth) 1 tbsp Q4-6 hrs PRN mouth pain. [...] at this time Pathologic Diagnosis Outside Slides [id number] (06/03/22) B. Right lateral tongue, incisional biopsy: [...] of the right lateral tongue s/p Right partialglossectomy, Right selective neck dissection, levels I- IV, [place] of split-thickness skin graft 5 cm x 7 cm from right anterolateral thigh. She is s/p control of oropharyngeal bleed on 07/24. Doing very well and healing well. RTC in 3 months Attending Physician Note I independently interviewed, examined and formulated the medical decision making. Details of my interview, examination findings, and medical decision- making confirmed the findings below. I have personally amended the below documentation where appropriate. documented in this [facility]11-09-2022 Instructions* Patient Instructions* Trish Castellon RN - 08/21/2022 3:15 PM EST Please call Dr. Bingham's nurse at [phone] if you notice any new lumps in head or neck, new onsetof difficulty with swallowing, persistent ear pain, hoarseness or new pain in head and neck that does not go away for 2 weeks. For covid vaccine call [phone] ([phone]). documented in this [facility]10-12-2022 History of Present illness Narrative* Shar Levine MD - 07/24/2022 3:45 PM EDT Images from the original note were not included. Chief Complaint: SCCa Right Postero-Lateral Tongue HPI: 67 yo F, never smoker referred by Dr. Reeves for surgical evaluation of T1N0 SCCa right lateral tongue s/p Right partial glossectomy, Right selective neck dissection, levels I-IV, [place] of split-thickness skin graft 5 cm x [...] Reported on 07/24/2022) First-BLM mouthwash (commercial containing Sbqpozmrx-Vsjefboac-Ph/MgHydr-Simeth) 1 tbsp Q4-6 hrs PRN mouth pain. [...] oz) SpO2 93% BMI 32.89 kg/m Smoking StatusNever General: Well-developed, well-nourished. No distress. Communication and [...] at this time Pathologic Diagnosis Outside Slides [id number] (06/03/22) B. Right lateral tongue, incisional biopsy: [...] of the right lateral tongue s/p Right partialglossectomy, Right selective neck dissection, levels I- IV, [place] of split-thickness skin graft 5 cm x 7 cm from right anterolateral thigh. A raw surface was noted on exam and silver nitrate cauterywas performed in clinic. Patient was counseled to provide pressure to the site with afrin soaked gauze for minor bleeding and to present to ED for any major bleeding. RTC in 3 weeks. * Shar Levine MD - 07/24/2022 3:45 PM EDT HPI Astrid Dumont is a 67 [...] chlorhexidine, cholecalciferol, eluxadoline, empagliflozin, escitalopram, hydrochlorothiazide, hydroxychloroquine, levothy roxine sodium, magnesium oxide, melatonin, metformin, potassium citrate, [...] extremities. Extremities: JEAN x 4, Warm. Skin: [place], warm and dry. Psychiatric: Normal mood and [...] and medical decision- making confirmed the findings below. I have personally amended the below documentation where appropriate. Pt having intermittent bleeding - was admitted and discharged after 24 hrs observation. Fine for most of clinic visit and then developed acute onset bleeding controlled with pressure, appears to be [place] small superficial vessel, we got the clinic monopolar cautery set up and area stopped but needs definitive identification and control, safest to do in OR with airway control. documented in this encounterOS[facility]10-12-2022 Instructions* Patient Instructions* Trish Castellon RN - 07/24/2022 3:45 PM EDT Please call Dr. Bingham's nurse at [phone] if you notice any new lumps in head or neck, new onsetof difficulty with swallowing, persistent ear pain, hoarseness or new pain in head and neck that does not go away for 2 weeks. For covid vaccine call [phone] ([phone]). documented in this encounterOS[facility]10-10-2022 Note* CDU Provider Note - Jose Devine MD - 07/22/2022 9:55 AM EDT This patient was appropriately risk stratified for [...] Auto 1.39 1.16 - 3.51 K/uL Abs [place] Auto 0.96 (H) 0.22 - 0.87 K/uL [...] so that it accurately reflects our care. [facility] Work Phone: [phone]) 165-397710-10-2022 Miscellaneous Notes* CDU Provider Note - oJse Devine MD - 07/22/2022 9:55 AM EDT This patient was appropriately risk stratified for [...] Auto 1.39 1.16 - 3.51 K/uL Abs [place] Auto 0.96 (H) 0.22 - 0.87 K/uL [...] so that it accurately reflects our care. * CDU Provider Note - Tomasa Aburto APRN-SANCHEZ - 07/21/2022 12:53 PM EDT DEPARTMENT OF EMERGENCY MEDICINE CHIEF COMPLAINT Chief [...] Right; Surgeon: Ricky Bingham MD; [facility] GRAFT SKIN SPLIT THICKNESS EAR EYELID FACE MOUTH ORBIT (STSG) N/A 07/12/2022 Laterality: N/A; Surgeon: Ricky Bingham MD; [facility] LYMPHADENECTOMY CERVICAL (MODIFIED RADICAL NECK DISSECTION) Right 07/12/2022 Laterality: Right; Surgeon: Ricky Bingham MD; [facility] KNEE REPLACEMENT Right KNEE REPLACEMENT [...] (Oral) Resp 18 Ht 1.575 m (5' 2) SpO2 98% BMI35.48 kg/m Smoking Status Never Physical Exam Constitutional: [...] signed by: JAVIER Cole, 07/21/2022 12:53 PM * CDU Provider Note - Jose Devine MD - 07/21/2022 12:33 PM EDT CDU Attending Note: 67 yo female with recent glossectomy who presents with bleeding from the base of the tongue for thepast two days. She was seen in the ED by ENT who used silver nitrate to cauterize the bleeding. Sheis being admitted to OBS under the General Protocol. BP 151/69 Pulse 68 Temp 98.1 F (36.7 C) (Oral) Resp 18 Ht 1.575 m (5' 2) SpO2 98% BMI 35.48 kg/m Smoking Status [...] Auto 1.39 1.16 - 3.51 K/uL Abs [place] Auto 0.96 (H) 0.22 - 0.87 K/uL Abs Eos Auto 0.30 0.00 - 0.42 K/uL Abs Baso Auto 0.05 0.00 - 0.15 K/uL Plan: serial Hg, monitor for bleeding [facility] History of Present illness Narrative* Renetta Pérez MD - 07/22/2022 8:30 AM EDT Head & Neck Surgery Daily Progress Note Last 24 Hours Reports small amount of bleeding at around 1:30 am that quickly resolved with pressure Has had no further bleeding since Overall feeling better Physical Exam BP 118/59 Pulse 71 Temp 98 F (36.7 C) (Oral) Resp 18 Ht 1.575 m (5' 2) SpO2 92% BMI 35.48 kg/m Smoking Status [...] shifts: No intake/output data recorded. WBC/Hgb/Hct/Plts: 7.57/12.5/38.3/346 (07/21 1153-07/22 0423) Bun/Creat/Cl/CO2/Glucose: --/--/--/--/167 (07/21 1959) Assessment & Plan [...] Otolaryngology - Head and Neck Surgery Pager #[phone] documented in this encounterOS[facility]10-09-2022 Hospital Discharge instructions* Discharge Instructions* Trish Weiner APRN-SUPPORT GROUP MANAGER - 07/21/2022 4:14 PM EDT - Peridex [...] Auto 1.39 1.16 - 3.51 K/uL Abs [place] Auto 0.96 (H) 0.22 - 0.87 K/uL [...] - 99 mg/dL POC Sample Type CAPBL * Attachments The following attachments cannot be sent through Care Everywhere. * Hemoptysis (Bahamian) documented in this encounterOS[facility]10-09-2022 Note* CDU Provider Note - JAVIER Cole - 07/21/2022 12:53 PM EDT DEPARTMENT OF EMERGENCY MEDICINE CHIEF COMPLAINT Chief [...] (Oral) Resp 18 Ht 1.575 m (5' 2) SpO2 98% BMI 35.48 kg/m Smoking Status [...] plan of care with Dr. Devine, the ED attending physician, who is in agreement with this plan. This is a shared visit on 07/21/2022. Electronically signed by: JAVIER Cole, 07/21/2022 12:53 PM [facility] Work Phone: [phone]) 542-192910-09-2022 Note* CDU Provider Note - Jose Devine MD - 07/21/2022 12:33 PM EDT CDU Attending Note: 67 yo female with recent glossectomy who presents with bleeding from the base of the tongue for thepast two days. She was seen in the ED by ENT who used silver nitrate to cauterize the bleeding. Sheis being admitted to OBS under the General Protocol. BP 151/69 Pulse 68 Temp 98.1 F (36.7 C) (Oral) Resp 18 Ht 1.575 m (5' 2) SpO2 98% BMI 35.48 kg/m Smoking Status [...] Auto 1.39 1.16 - 3.51 K/uL Abs [place] Auto 0.96 (H) 0.22 - 0.87 K/uL Abs Eos Auto 0.30 0.00 - 0.42 K/uL Abs Baso Auto 0.05 0.00 - 0.15 K/uL Plan: serial Hg, monitor for bleeding [facility]10-09-2022 Physician Emergency department Note* Noemi Ovalle MD - 07/21/2022 11:09 AM EDT This patient's history, physical exam were performed [...] 07/21/22 1110 Noemi Ovalle MD 07/21/22 1111 [facility] Work Phone: 1(201) 310-479010-09-2022 Emergency department Note* Noemi Ovalle MD - 07/21/2022 11:09 AM EDT This patient's history, physical exam were performed [...] 07/21/22 1110 Noemi Ovalle MD 07/21/22 1111 * Ilene Baron, CATE-SUPPORT GROUP MANAGER - 07/21/2022 11:04 AM EDT Images from the original note [...] stopped in the evening, reoocured this am, Notcurrently bleeding. Reports new 'white stuff at base [...] N/A; Surgeon: Ricky Bingham MD; [facility] MA[facility] OR LYMPHADENECTOMY CERVICAL (MODIFIED RADICAL NECK DISSECTION) Right 07/12/2022 Laterality: Right; Surgeon: Ricky Bingham MD; Location: [facility] MA[facility] OR KNEE REPLACEMENT Right KNEE REPLACEMENT [...] bloody or black tarry stools, no constipation, nodiarrhea, no flank pain. : No dysuria, no [...] (Oral) Resp 18 Ht 1.575 m (5' 2) SpO2 98% BMI 35.48 kg/m Smoking Status [...] of care and all medication prescriptions for thispatient were discussed with the attending physician. This note dictated using [employer] medical voice recognition software. Attempts at proofreading were made, but errors may occasionally still occur. JAVIER Ruano 07/21/22 1219 * Bibiana Lee RN - 07/21/2022 10:43 AM EDT Patient presents to the ED for a post of complication. Patient states she has tongue cancer and hada skin graft on from her right thigh on 07/12/22. Patient states since 3 days she had been bleeding from the graft site under her tongue. Patient states she sent pictures via [employer] to her doctor andthey are afraid the graft is falling off. Patient if alert and oriented x4, VSS. No s/s of distressnoted. documented in [facility] Physician Emergency department Note* JAVIER Ruano - 07/21/2022 11:04 AM EDT Images from the original note [...] stopped in the evening, reoocured this am, Notcurrently bleeding. Reports new 'white stuff at base [...] Right; Surgeon: Ricky Bingham MD; [facility] MA[facility] OR GRAFT SKIN SPLIT THICKNESS EAR EYELID FACE MOUTH ORBIT (STSG) N/A 07/12/2022 Laterality: N/A; Surgeon: Ricky Bingham MD; [facility] MAIN OR LYMPHADENECTOMY CERVICAL (MODIFIED RADICAL NECK DISSECTION) Right 07/12/2022 Laterality: Right; Surgeon: Ricky Bingham MD; [facility] MA[facility] OR KNEE REPLACEMENT Right KNEE REPLACEMENT [...] bloody or black tarry stools, no constipation, nodiarrhea, no flank pain. : No dysuria, no [...] (Oral) Resp 18 Ht 1.575 m (5' 2) SpO2 98% BMI 35.48 kg/m Smoking Status [...] of care and all medication prescriptions for thispatient were discussed with the attending physician. This note dictated using [employer] voice recognition software. Attempts at proofreading were made, but errors may occasionally still occur. JAVIER Ruano 07/21/22 1219 [facility]10-09-2022 Emergency department Note* Bibiana Lee RN - 07/21/2022 10:43 AM EDT Patient presents to the ED for a post of complication. Patient states she has tongue cancer and hada skin graft on from her right thigh on 07/12/22. Patient states since 3 days she had been bleeding from the graft site under her tongue. Patient states she sent pictures via mychart to her doctor andthey are afraid the graft is falling off. Patient if alert and oriented x4, VSS. No s/s of distressnoted. [facility]10-05-2022 History of Present illness Narrative* Amanda Nichols RN - 07/17/2022 1:57 PM EDT Pt discharged home with all personal belongings via private vehicle. Reviewed AVS with pt. All questions answered. PIV removed per policy. * Joan Ordonez RD - 07/17/2022 11:34 AM EDT Nutrition Note S/O DHT removed and diet [...] Consistency: Answer: Liquid Thin (IDDSI 0) Carie RD,LD,CNSC, RN Pager #[phone] * ROQUE Loco - 07/17/2022 11:00 AM EDT ENT Speech- Clinical Swallow Evaluation Diet recommendation: Soft and bite sized solids (dysphagia level 6)/ Thin liquids -left sided bolus placement -intermittent liquid wash as needed Discharge recommendation: Recommend ongoing ST services at discharge. Please schedule pt with ENT QA TEST ANALYST in conjunction with ENT MD follow-up appointment for clinical swallowing evaluation vs FEES. Therapy Indicated During Inpatient Stay: No Inpatient Frequency: Inpatient QA TEST ANALYST will s/o History: 67 y.o. female admitted [...] unable to respond. 07/17/22 [place] Kind of Place Name of Hospital Month Date Year Day of Week Clock Time Etiology / Event Pathology Deficits Total Score 30 30 Oral Motor Examination Structure ROM/Strength Mandible [...] and is implementing strategies independently, so inpatient QA TEST ANALYST services are no longer warranted. The above was discussed with pt, RN and MD team. Recommendations: Soft and bite sized solids (dysphagia level 6)/ Thin liquids -left sided bolus placement -intermittent liquid wash as needed Care plan: Inpatient QA TEST ANALYST will s/o Alisa Hart, QA TEST ANALYST ENT Speech Pathology Pager: [phone] Charge: Swallow/ Dysphagia Evaluation CPT Code: 61146 * Sonia Ward RN - 07/17/2022 8:17 AM EDT PACC notified by PCRM that patient no longer requires C services, referral cancelled. Sonia GEE, RN Post Acute Press Supervisor * KENNETH Parikh - 07/17/2022 8:14 AM EDT Discharge Planning- [facility] Inpatient PCRM Discharge Note Patient discussed in medical rounds for discharge to home today. PCRM met with the patient/family/spouse to discuss final discharge plan. Services for Discharge No skilled needs anticipated for discharge at this time. Patient will be assisted at home by her daughter. They will purchase Ensure Plus (or an equivalent product) over the counter until cleared susan oral diet. Consults with Final Discharge Recommendations N/A at this time Lines/Tubes/Drains/Wounds/Supplies Preneo to wound- no care needed Thigh [...] and assistance is needed, please page the banquet set up person PCRM at [phone]. Final Discharge Planning Discharge Disposition: Home CM/SW AVS Portion Completed: Yes * Renetta Pérez MD - 07/17/2022 6:03 AM EDT Head & Neck Surgery Daily Progress Note Last 24 Hours DHT pulled out overnight AFVSS on room air Xeroform bolster taken down this AM Remaining drain removed Plan to advance to soft diet today Last Bowel Movement: 07/16/22 Physical Exam BP 164/69 (BP Location: Right arm, BP Position: Lying) Pulse 65 Temp 97.7 F (36.5 C) (Axillary) Resp 18 Ht 1.575 m (5' 2) Wt 88 kg (194 lb) SpO2 96% [...] SND levels I-V, STSG PLAN Airway (trach/stomavent): [place] Diet: NPO with tube feeds until follow up with ARMANDO in 1 week --> may have sips of water/ice chips when bolster taken down POD5 Drains: 2 right neck RWR Sutures/cody: Dermabond prineo, STSG site (puracol/tegederm), intraoral bolster down POD5 Antibiotics: Unasyn while bolster in x 5 days Consults: PRN PT/OT/QA TEST ANALYST: PRN Anticoagulation: lovenox, ASA 81 (home meds) [...] - Head & Neck Surgery Personal pager [phone] * Sonia Ward RN - 07/16/2022 12:59 PM EDT PACC Home Health Following Physician Confirmation Following Physician:Ricky Bingham MD Physician Service: Surgery Agreeable to Follow: Yes Spoke with: verified with pcrm * Sonia Ward RN - 07/16/2022 12:59 PM EDT PACC Coordination Note Patient received in handoff from rehabilitation case coordinator for potential homecare services. Will continue to follow with rehabilitation case coordinator for plan of care. Sonia GEE, RN Post Acute Press Supervisor * KENNETH Parikh - 07/16/2022 12:41 PM EDT Discharge Planning for Home Health Options for discharge have been discussed with patient and family. Patient and family agree the post hospital care needs will best met at home with home care services. Background Information/ Hospital Overview: Patient is 67 years old and is s/p Right partial glossectomy, Right Selective Neck Dissection, STSG Services needed: Senior Care Senior Care Needs Nursing assessment Teaching- dobhoff/enteral care Line [...] and will be willing to work with [facility] to obtain education if thereare complex teaching services needed for the patient. Physician following for home care orders / phone: Ricky Bingham MD [phone] COVID-19 Vaccination Record: Has patient been vaccinated? Yes Brand: Pfizer Dates Given: 07/01/22 * KENNETH Parikh - 07/16/2022 10:42 AM EDT Discharge Planning- [facility] In[facility]M Discharge Note Patient discussed in medical rounds for discharge to home, possibly tomorrow. PCRM met with the patient/family/spouse to discuss final discharge plan. Services for Discharge No skilled needs anticipated for discharge at this time. Patient will be assisted at home by her daughter. They will purchase Ensure Plus (or an equivalent product) over the counter until cleared susan oral diet. Consults with Final Discharge Recommendations N/A at this time Lines/Tubes/Drains/Wounds/Supplies Dobhoff tube Preneo to wound- no care [...] and assistance is needed, please page the banquet set up person PCRM at [phone]. Final Discharge Planning Discharge Disposition: Home CM/SW AVS Portion Completed: Yes * Renetta Pérez MD - 07/16/2022 5:53 AM EDT Head & Neck Surgery Daily Progress Note [...] (Oral) Resp 16 Ht 1.575 m (5' 2) Wt 88 kg (194 lb) SpO2 96% [...] SND levels I-V, STSG PLAN Airway (trach/stomavent): [place] Diet: NPO with tube feeds until follow up with ARMANDO in 1 week --> may have sips of water/ice chips when bolster taken down POD5 Drains: 2 right neck RWR Sutures/cody: Dermabond prineo, STSG site (puracol/tegederm), intraoral bolster down POD5 Antibiotics: Unasyn while bolster in x 5 days Consults: PRN PT/OT/QA TEST ANALYST: PRN Anticoagulation: lovenox, ASA 81 (home meds) [...] - Head & Neck Surgery Personal pager [phone] * KENNETH Blake - 07/15/2022 2:39 PM EDTSummary: Psychosocial Assessment Psychosocial Assessment Per chart review, patient is a 67 y.o. female POD 3 s/p R partial glossectomy, R SND levels I-V, STSG SW met with patient to introduce self, explain family welfare social work professor role during inpatient stay, and answerpatient questions. Patient was alert and oriented x4 and agreeable to SW visit. Information Source Information Source: patient , review of medical record Information Source Name: Astrid Information Source Number: [phone] Contact Information Data Solutions Architect Name: CARMELO Burrell-WILLIE Data Solutions Architect's Social Work Contact Name: Ethel ZAFAR Liability Claims Manager's Phone Number: [phone] Referral Source: admission list Living Environment Lives With: alone Living Arrangements: house Provides Primary Care For: no one Primary Care Provided By: self Support System: Immediate family Able to Return to Prior Arrangements: yes Employment/Financial Employed?: Retired Employment/Financial Concerns: no Source Of Income: social security Financial Concerns: none Cognitive/Perceptual/Developmental Current Mental Status/Cognitive Functioning: no deficits noted [...] Amanda Importance: Sw made patient aware of automobile mechanic radiator services. Patient Coping/Stress Concerns Patient Coping/Stress Concerns: [...] completed advance directives and states the document(s) areat home. SW reviewed that without completed document on file, per [place] Law, daughter, Sandra , ([phone]) would be their Legal NOK for decision making. SW requested patient provide the hospital with a copy of the document when possible so that it can be scanned into their medical record. Patient agreeable to this plan. Legal NOK: Teresa Flores & Fausto (children) Substance Use: Tobacco: patient denies use Alcohol: patient denies use Recreational Drugs: patient denies use Community Resources: none Home Health / DME: none / none Health Insurance / Rx: Medicare A&B / [employer] [place] Anticipated Discharge Plan: final plan will be determined closer to discharge, pending therapy and medical team recommendations. Medical Team Considerations: none SW Interventions/Recommendations: Service SW name and contact information placed on white board in patient's room to contact as needed. SW will continue to remain available to provide assistance and support as needed during inpatient stay. Ethel WATSON Clinical Liability Claims Manager Pager: [phone] ext: [phone] For Evening (4:30pm-8am) and Weekend SW needs please call [phone] or page [phone] * Panchito Chase - 07/15/2022 10:20 AM EDT Introduced self and role of the automobile mechanic radiator to patient, Astrid. Astrid expressed appreciation for the visit and reported no spiritual care needs at this time. I expressed support for Astrid and provided information regarding 05/05 automobile mechanic radiator availability and how to contact. If spiritual/emotional needs should arise, please page [phone]. Chaplains are available in-house 24 hours a day and 7 days a week. For urgent matters in the [facility],please page [phone]. If the request is not urgent, please enter a consult. Consults are responded to within 24 hours. Panchito Chase M.Div, [facility] Staff [facility] 05/05 On-Call Pager: [phone] 07/15/22 1020 Clinical Encounter Type Visited With Patient Visit Type Introduction Pastoral Time Spent 15 min Referral Other (See Comment) (Rounding) Interventions Provided Active listening;Supportive presence Pumping Station Engineer Education Pumping Station Engineer Service Available Yes Educated Patient Plan of Care Continue Visiting PRN * Renetta Pérez MD - 07/15/2022 6:17 AM EDT Head & Neck Surgery Daily Progress Note Last 24 Hours No acute events overnight. AFVSS on room air Accidentally removed DHT last night, replaced with X ray confirmation. Tube feeds restarted Last Bowel Movement: 07/14/22 Physical Exam BP 140/62 (BP Location: Right arm, BP Position: Lying) Pulse 67 Temp 99.3 F (37.4 C) (Axillary) Resp 16 Ht 1.575 m (5' 2) Wt 88 kg (194 lb) SpO2 97% [...] SND levels I-V, STSG PLAN Airway (trach/stomavent): [place] Diet: NPO with tube feeds until follow up with ARMANDO in 1 week --> may have sips of water/ice chips when bolster taken down POD5 Drains: 2 right neck RWR Sutures/cody: Dermabond prineo, STSG site (puracol/tegederm), intraoral bolster down POD5 Antibiotics: Unasyn while bolster in x 5 days Consults: PRN PT/OT/QA TEST ANALYST: PRN Anticoagulation: lovenox, ASA 81 (home meds) [...] - Head & Neck Surgery Personal pager [phone] * Renetta Pérez MD - 07/14/2022 8:55 AM EDT Head & Neck Surgery Daily Progress Note Last 24 Hours No acute events overnight. Brief temp of 100.7F overnight Having feeling of reflux Pain controlled Left madeline wrap taken down Last Bowel Movement: 07/14/22 Physical Exam BP 113/58 (BP Location: Right arm, BP Position: Lying) Pulse 62 Temp 98.2 F (36.8 C) (Axillary) Resp 14 Ht 1.575 m (5' 2) Wt 88 kg (194 lb) SpO2 95% [...] SND levels I-V, STSG PLAN Airway (trach/stomavent): [place] Diet: NPO with tube feeds until follow up with ARMANDO in 1 week --> may have sips of water/ice chips when bolster taken down POD5 Drains: 2 right neck RWR Sutures/cody: Dermabond prineo, STSG site (puracol/tegederm), intraoral bolster down POD5 Antibiotics: Unasyn while bolster in x 5 days Consults: PRN PT/OT/QA TEST ANALYST: PRN Anticoagulation: lovenox, ASA 81 (home meds) [...] Surgery ENT [facility] (First Call) Pager [phone] Personal pager [phone] * Shar Levine MD - 07/13/2022 12:12 PM EDT Head & Neck Surgery Daily Progress Note Last 24 Hours No acute events overnight. Surgery well tolerated yesterday Pain well controlled Physical Exam BP 107/53 (BP Location: Right arm, BP Position: Lying) Pulse 69 Temp 99.1 F (37.3 C) (Axillary) Resp 16 Ht 1.575 m (5' 2) Wt 88 kg (194 lb) SpO2 95% [...] 3077.3 [I.V.:1665.3; NG/GT:1212; IV Piggyback:200] Out: 2044 [Urine:192; Other:90] WBC/Hgb/Hct/Plts: 9.39/12.0/37.3/221 (07/13 327) Na/K+/Phos/Mg/Ca: 139/3.8/3.5/1.7/8.8 (07/13 327) Bun/Creat/Cl/CO2/Glucose: 17/0.77/101/27/266 (07/13 327-07/13 1158) Assessment & Plan 67 y.o. female POD 1 s/p R partial glossectomy, R SND levels I-V, STSG PLAN Airway (trach/stomavent): [place] Diet: NPO with tube feeds until follow up with ARMANDO in 1 week --> may have sips of water/ice chips when bolster taken down POD5 Drains: 2 right neck RWR Sutures/cody: Dermabond prineo, STSG site (puracol/tegederm), intraoral bolster down POD5 Antibiotics: Unasyn while bolster in x 5 days Consults: PRN PT/OT/QA TEST ANALYST: PRN Anticoagulation: lovenox, ASA 81 (home meds) [...] Surgery ENT [facility] (First Call) Pager [phone] Personal pager [phone] * Nina Beck RD - 07/13/2022 8:38 AM EDT NUTRITION ASSESSMENT/CONSULT Nutrition Recommendations and Plan of [...] or up to date coverage please see [employer] schedule for Dietitian Food Service Kitchen Supervisor for the appropriate unit for Friday-Friday coverage or Dietitian Weekends/Holidays Schedule for weekend and holiday coverage. Thank you. Astrid Dumont is a 67 y.o. female with a past medical history of Arthritis, Diabetes mellitus, andSquamous cell carcinoma, keratinizing. Pt is POD#1 partial glossectomy (less than 1/2 right tongue), STSG, and modified radical neck dissection Past History Past medical, surgical, family, and social histories have been reviewed and are located elsewhere in the medical record. Nutrition History: Nutrition consult received for TF assessment per post-OP ENT protocol. Pt with gastric DHT in placepost-op. Jevity 1.5 @ 240mL 5x daily initiated [...] Answer: WITHOUT meds Height: 157.5 cm (5' 2), Weight: 88 kg (194 lb) ; IBW- [...] Daily insulin regular Subcutaneous Q6H Jevity 1.5 Jessica/Fiber 240 mL Nasogastric 5x daily scopolamine 1 patch Transdermal Once senna 8.6 mg Oral Daily Or senna 8.6 mg Per NG tube Daily GI: +gastric-DHT; ND/NT Abdominal X-ray: The distal tip of the Dobbhoff tube is identified in the distal stomach. BM: TYRE FITTER Urine: 1925mL 07/12 Skin: Rosales Score: 20 Active Wounds: Incision (Adult, Pediatric) 07/12/22 0743 tongue (1) Incision (Adult, Pediatric) 07/12/22 0759 Right neck (1) Wound (Adult, Pediatric) 07/12/22 0951 Right upper thigh graft (1) Edema- none Estimated Nutrition Needs: Based on IBW (50kg) Estimated Kcals Needs: 3438-7597 kcals (32-36kcals/kg) Estimated Pro Needs: 75-100g Pro (1.5-2g/kg) Estimated Fluid Needs: Per MD Malnutrition Statement as evidenced by clinical characteristics: Indications of Malnutrition: No malnutrition based on the AND/ASPEN Malnutrition Criteria [address], LD Pager: [phone] * KENNETH Parikh - 07/12/2022 3:07 PM EDT Initial Assessment Referral Information Arrived From: operating room Readmission Information Was patient readmitted within 30 Days?: No Information Source Information Source: patient , review of medical record Information Source Name: Patient and daughter Outpatient Providers Outpatient Providers Updated In IHIS: No Contact Information Data Solutions Architect/SW Added to Care Team: Yes This Vice President Of Consulting Services is Primary Data Solutions Architect/SW: Yes Data Solutions Architect Name: Regina Kohler POWER SYSTEM OPERATOR, ACM-SW Data Solutions Architect's Social Work Contact Name: KENNETH Schulte Liability Claims Manager's Living Environment Lives With: alone Living Arrangements: [...] No Initial Discharge Planning Home Care Services (TYRE FITTER): No Home Therapies (TYRE FITTER): None DME (TYRE FITTER): None Medical Supplies (TYRE FITTER): None Patient Goal for Discharge: Return home [...] Source Name: Patient and daughter Contact Information Data Solutions Architect/SW Added to Care Team: Yes This Vice President Of Consulting Services is Primary Data Solutions Architect/SW: Yes Data Solutions Architect Name: KENNETH Parikh ACM-SW Data Solutions Architect's Social Work Contact Name: Ethel Hayes KENNETH Liability Claims Manager's Living Environment Lives With: alone Living Arrangements: [...] is going to begin teaching with staff electronic warfare officer. She is aware that she will purchase Ensure Plus (or equivalent product) over the counter. Will continue to follow and will assist as needed. Final plan will be determined closer to discharge, pending therapy and medical team recommendations. Patient verbalized understanding and agreement with the plan of care. Patient have no questions atthis time. PCRM will continue to follow patient with multidisciplinary team for ongoing assessment of needs and for discharge planning. Medical team updated. [facility] Reason for referral (narrative)* (Routine) Specialty Diagnoses / Procedures Referred By Joe spangler Referred To Contact Taylor Burns MD [address] [place] [address] Referral ID Status Reason Start Date Expiration Date Visits Re quested Visits Authorized * (Routine) - New Request Specialty Diagnoses / Procedures Referred By Contac t Referred To Contact Procedures PLATELET MONITORING PER PROTOCOL Ricky Bingham MD [address] [place] [address] Referral ID Status Reason Start Date Expiration Date V isits Requested Visits Authorized [id number] New Request 07/12/2022 08/06/2023 1 1 * (Routine) - New Request Specialty Diagnoses / Procedures Referred By Contac t Referred To Contact Procedures DVT/VTE RISK ASSESSMENT Ricky Bingham MD [address] [place] [address] Referral ID Status Reason Start Date Expiration Date V isits Requested Visits Authorized [id number] New Request 07/12/2022 08/06/2023 1 1 * (Routine) - New Request Specialty Diagnoses / Procedures Referred By Contac t Referred To Contact Procedures DVT/VTE RISK ASSESSMENT Ricky Bingham MD [address] [place] [address] Referral ID Status Reason Start Date Expiration Date V isits Requested Visits Authorized [id number] New Request 07/12/2022 08/06/2023 1 1 [facility]10-[facility] Note* Nursing Notes - Divya Jauregui RN - 07/16/2022 7:27 PM EDT Aruna MURCIA that pt pulled her dubhuff [facility]10-04-2022 Miscellaneous Notes* Nursing Notes - Divya Jaruegui RN - 07/16/2022 7:27 PM EDT Aruna MURCIA that pt pulled her dubhuff * Nursing Notes - Karen Hong RN - 07/14/2022 12:24 PM EDT 1224: Aruna Alvarado Re: Phuong 2111 pt dobhoff is clogged fyi, trying to get in unclogged butso far unsuccessful. going to try clog zapper, will keep you updated. may have to place a new tube.thanks Karen Gray 1329: aruna Alvarado Re: Phuong 2111 pt has dirrhea which she said is common for her after taking stool softeners. she is requesting something to slow diarrhea down. thanks Karen Gray 1830: aruna Alvarado Re: Phuong 2111 pt accidentally pulled out dobhoff. will need replaced toresume tube feeds and give any meds. thanks Karen Warner85 * Plan of Care - Nina Beck [...] Burns MD - 07/12/2022 10:40 AM EDT CPERI/PARAS Astrid Dumont POD# 0 Surgeon: Zachery Diagnosis: R posterolateral tongue SCC Procedure: R partial glossectomy, R SND levels I-V, STSG PLAN Airway (trach/stomavent): [place] Diet: NPO with tube feeds until follow up with ARMANDO in 1 week --> may have sips of water/ice chips when bolster taken down POD5 Drains: 2 right neck RWR Sutures/cody: Dermabond prineo, STSG site (puracol/tegederm), intraoral bolster down POD5 Antibiotics: Unasyn while bolster in x 5 days Consults: PRN PT/OT/QA TEST ANALYST: PRN Anticoagulation: lovenox, ASA 81 (home meds) [...] - 07/12/2022 10:33 AM EDT Astrid Dumont ([id number]) PRE OPERATIVE DIAGNOSIS Malignant neoplasm of anterior [...] - Fellow ANESTHESIOLOGIST Anesthesiologist: Odin Mckeon MD NURSING HOME DIRECTOR: Yrn Cavanaugh APRN-NURSING HOME DIRECTOR SURGICAL STAFF Director Funds Development: Astrid Knowles RN Relief Director Funds Development: Byron Salcedo RN Relief Scrub: Josefina Blair [...] SURG PATH REQUEST Ricky Bingham MD 07/12/2022 075 3 : anterior re-resection #2 Frozen SURG PATH SURG PATH OWEN Bingham MD 07/12/2022751 4 : superior re-resection Laura SURG PATH SURG PATH OWEN Bingham MD 07/12/2022751 5 : posterior re-resection Frozen SURG PATH SURG PATH OWEN Bingham MD 07/12/2022752 6 : inferior re-resection Laura SURG PATH SURG PATH OWEN Bingham MD 07/12/2022752 7 : deep re-resection Laura SURG PATH SURG PATH OWEN Bingham MD 07/12/2022 075 8 : right level 1 neck dissection Permanent SURG PATH SURG PATH OWEN Bingham MD 07/12/2022 0844 9 : right level 2 neck dissection Permanent SURG PATH SURG PATH REQUEST Ricky Bingham MD 07/12/2022 0922 10 : right level 3 & 4 neck dissection Permanent SURG PATH SURG PATH REQUEST Ricky Bingham MD07/12/2022 09 Taylor Burns MD July 12, 2022 10:33 AM [facility]* Nursing Notes - Karen Hong RN - 07/14/2022 12:24 PM EDT 1224: Aruna Alvarado Re: Phuong 2111 pt dobhoff is clogged fyi, trying to get in unclogged butso far unsuccessful. going to try clog zapper, will keep you updated. may have to place a new tube.thanks Karen Warner85 1329: aruna Alvarado Re: Phuong 2111 pt has dirrhea which she said is common for her after taking stool softeners. she is requesting something to slow diarrhea down. thanks Karen Gray 1830: aruna Alvarado Re: Phuong 2111 pt accidentally pulled out dobhoff. will need replaced toresume tube feeds and give any meds. thanks Karen [id number] [facility] Note* Plan of Care - Nina Beck [...] lab values. 4. RD to follow up [facility]09-30-2022 Hospital Discharge instructions* Discharge Instructions* KENNETH Parikh - 07/12/2022 3:10 PM EDT Images from the original note were not included. Evening and Weekend Contacts If you have questions or concerns during evening, weekend, or holiday hours, please call: -[facility] [employer] waterworks operator at [phone]. Ask the waterworks operator to page the on-call doctor for Ear, Nose and Throat, the service that was responsible for your care while you were in the hospital. If you having an emergency, call 162. Medical Issues: For clinical questions or medical concerns during regular business hours, please call [phone] and you will be routed to your physician's team. For discharge planning questions/concerns, please contact: KENNETH Tapia, CARMELO- (Patient Care Resource Conservationist) [phone] ANISHA Rocha, [facility] (Patient Care Resource Conservationist) [phone] KENNETH Davenport (Liability Claims Manager) [phone] Your Data Solutions Architect (PCRM) has arranged your appointments for follow [...] a two- minute automated telephone call from [facility]. This call will come from [phone]. If you are unable to answer or do not receive the automated call, please call [phone] to complete this important evaluation. By answering [...] all. Do not do the following: - oil gauger such as vacuuming, or heavy cleaning - [...] open to air. documented in this encounter[facility]-2022 Note* Nursing Notes - Barbara Young RN - 07/12/2022 2:52 PM EDT Ms. Dumont is admitted to 2110 from PACU at this time and her skin is WDL except for oral and neckincisions and wound drains. Barbara Young RN 07/12/2022 [facility]* Plan of Care - Taylor Burns MD - 07/12/2022 10:40 AM EDT CPERI/PARAS Astrid Dumont POD# 0 Surgeon: Zachery Diagnosis: R posterolateral tongue SCC Procedure: R partial glossectomy, R SND levels I-V, STSG PLAN Airway (trach/stomavent): [place] Diet: NPO with tube feeds until follow up with ARMANDO in 1 week --> may have sips of water/ice chips when bolster taken down POD5 Drains: 2 right neck RWR Sutures/cody: Dermabond prineo, STSG site (puracol/tegederm), intraoral bolster down POD5 Antibiotics: Unasyn while bolster in x 5 days Consults: PRN PT/OT/QA TEST ANALYST: PRN Anticoagulation: lovenox, ASA 81 (home meds) [...] on POD#5 to home with tube feeds [facility] Work Phone: 1(136) 467-677809-30-2022 Note* Brief Op Note - Taylor Burns MD - 07/12/2022 10:33 AM EDT Astrid Dumont ([id number]) PRE OPERATIVE DIAGNOSIS Malignant neoplasm of anterior [...] - Fellow ANESTHESIOLOGIST Anesthesiologist: Odin Mckeon MD NURSING HOME DIRECTOR: Yrn Cavanaugh APRN-NURSING HOME DIRECTOR SURGICAL STAFF Director Funds Development: Astrid Knowles RN Relief Director Funds Development: Byron Salcedo RN Relief Scrub: Josefina Blair [...] re-resection #1 Permanent SURG PATH SURG PATH OWEN Bingham MD 07/12/2022 0751 3 : anterior re-resection #2 Frozen SURG PATH SURG PATH OWEN Bingham MD 07/12/2022 075 4 : superior re-resection Frozen SURG PATH SURG PATH REQUEST Ricky Bingham MD 07/12/2022 075 5 : posterior re-resection Frozen SURG PATH SURG PATH OWEN Bingham MD 07/12/2022 075 6 : inferior re-resection Laura SURG PATH SURG PATH OWEN Bingham MD 07/12/2022 075 7 : deep re-resection Frozen SURG PATH SURG PATH OWEN Bingham MD 07/12/2022 0753 8 : right level 1 neck dissection Permanent SURG PATH SURG PATH OWEN Bingham MD 07/12/2022 0844 9 : right level 2 neck dissection Permanent SURG PATH SURG PATH OWEN Bingham MD 07/12/2022 0922 10 : right level 3 & 4 neck dissection Permanent SURG PATH SURG PATH REQUEST Ricky Bingham MD07/12/2022 09 Taylor Burns MD July 12, 2022 10:33 AM [facility]09-30-2022 History and physical note* Yrn [...] (Oral) Resp 13 Ht 1.626 m (5' 4) Wt 86.8 kg (191 lb 6.4 oz) SpO2 97% BMI 32.85 kg/m Smoking Status Never Smoker Constitutional: Alert, comfortable. HEENT: Conjunctivae normal. Moist mucous membranes. Cardiovascular: Regular rate. Pulmonary/Chest: Respirations are even and non-labored bilaterally. Abdominal: Soft. No distension, tenderness, masses or guarding. Neurological: Alert and oriented. Moving all extremities. Extremities: JEAN x 4, Warm. Skin: [place], warm and dry. Psychiatric: Normal mood and [...] MD Otolaryngology-Head and Neck Surgery, PGY-3 *7118 [facility]09-30-2022 History and physical note* Yrn [...] (Oral) Resp 13 Ht 1.626 m (5' 4) Wt 86.8 kg (191 lb 6.4 oz) SpO2 97% BMI 32.85 kg/m Smoking Status Never Smoker Constitutional: Alert, comfortable. HEENT: Conjunctivae normal. Moist mucous membranes. Cardiovascular: Regular rate. Pulmonary/Chest: Respirations are even and non-labored bilaterally. Abdominal: Soft. No distension, tenderness, masses or guarding. Neurological: Alert and oriented. Moving all extremities. Extremities: JEAN x 4, Warm. Skin: [place], warm and dry. Psychiatric: Normal mood and [...] Neck Surgery, PGY-3 *7118 documented in this encounterOS[facility]-30-2022 Nurse Surgical operation note* Nkechi Asif RN - 07/12/2022 5:27 AM EDT Pt denies history of chemo and radiation. Pt has metal or foreign objects in body. Denies history of seizures. [facility] Note* Nkechi Asif RN - 07/12/2022 5:27 AM EDT Pt denies history of chemo and radiation. Pt has metal or foreign objects in body. Denies history of seizures. documented in this encounterOS[facility]09-21-2022 History and physical note* Julia Rae MD - 07/03/2022 9:15 AM EDT Images from the original note were not included. History of Present Illness Ms. Dumont is a 67 y.o. female being evaluated in [facility] due to her medical condition(s) , [...] resp. rate 18, height 1.626 m (5' 4), weight 87.5 kg (193 lb), SpO2 96 [...] arrhythmia, CVA. She does not see a Sightseeing Guide and has not been diagnosed with heart disease. She has not needed any recent cardiac testing. Functional status---Moderate. She babysits her one year old grandchild. She does her own housekeeping chores/shopping. She denies chest pain and dyspnea. Cardiac testing: ECG(07/03/2022): NSR at 60 bpm. Normal KS interval, normal axis. Cardiovascular A/P - 1. [...] MULTI VITAMIN/MIN PO) Melatonin 5 MG capsule KS ECG, CLINIC PERFORMED Pulse Ox Labs ordered/reviewed. Chem 6 and CBC in acceptable range for planned surgery. T&S reviewed. Anesthesia/Medical Assessment/plan: Reviewed patient's history, assessment & ECG findings. Optimized. Julia Rae MD [facility] [address] Review of Systems (OSUROS) Review of Systems [...] Hematological: Does not bruise/bleed easily. Physical Examination [facility] Blood pressure 118/74, pulse 68, temperature 97.6 F (36.4 C), resp. rate 18, height 1.626 m (5' 4), weight 87.5 kg (193 lb), SpO2 96 [...] Activity Alcohol use: Never Drug use: Never [facility]09-21-2022 History and physical note* Julia [...] resp. rate 18, height 1.626 m (5' 4), weight 87.5 kg (193 lb), SpO2 96 [...] arrhythmia, CVA. She does not see a Sightseeing Guide and has not been diagnosed with heart disease. She has not needed any recent cardiac testing. Functional status---Moderate. She babysits her one year old grandchild. She does her own housekeeping chores/shopping. She denies chest pain and dyspnea. Cardiac testing: ECG(07/03/2022): NSR at 60 bpm. Normal KS interval, normal axis. Cardiovascular A/P - 1. [...] MULTI VITAMIN/MIN PO) Melatonin 5 MG capsule KS ECG, CLINIC PERFORMED Pulse Ox Labs ordered/reviewed. Chem 6 and CBC in acceptable range for planned surgery. T&S reviewed. Anesthesia/Medical Assessment/plan: Reviewed patient's history, assessment & ECG findings. Optimized. Julia Rae MD [facility] [address] [facility] Review of Systems (OSUROS) Review of [...] resp. rate 18, height 1.626 m (5' 4), weight 87.5 kg (193 lb), SpO2 96 [...] Never Drug use: Never documented [facility] Instructions* Patient Instructions* Cici Crockett [...] NOT take Herbal Medication (including fish oil ([place]-3), garlic, Glucosamine - Chondroitin ,gingko, ginseng, Vitamin [...] may request more written information from the [employer] Information at or email: [email or web address]. Patient Pre-Operative Instructions: Diet Instructions: -NO [...] site one week prior to surgery. - [place] your teeth and rinse your mouth the [...] given and reviewed. AVS/BLS documented in this encounterOS[facility]-2022 History of Present illness Narrative* Heather Sánchez [...] (Temporal) Resp 20 Ht 1.626 m (5' 4) Wt 88.1 kg (194 lb 4.8 oz) [...] No mass or nodularity. Lymphatics: No lymphadenopathy. MOTOR VEHICLE ASSEMBLER scope performed today Data Reviewed: No imaging has been performed at this time Pathologic Diagnosis Outside Slides [id number] (06/03/22) B. Right lateral tongue, incisional biopsy: [...] saw this patient with Heather Sánchez and pe rsonally wrote the impression and plan. Impression/Plan: [...] DHT and bolster placement. [facility] Instructions* Patient Instructions* Mushtaq Young RN - 06/13/2022 1:00 PM EDT Images from the original note were not included. Welcome to the Head and Neck Oncology Clinic. We are here to assist you through your care at the [place] [facility]. Dr[facility] Ricky Bingham is your Head and Neck Surgical Oncology doctor. It is likely that you will have other cancer doctors to assist with your care. Heather Sánchez PA-C our physician home care assistant who works with Dr. Bingham, will often see you post operatively, as well as alternate visits with Dr. Bingham throughout your care for follow ups. Dr. Bingham's Primary Nurse is Mushtaq Young RN. She can be reached at [phone], and can get in touch quickly with Dr. Bingham and Heather. If not in the office when you call, please contact [phone] and leave a message for the nursing pool. Any scheduling issues will be addressed by the scheduling department at [phone]. Here are the resources/team members available to you at [facility]: Speech and Language Pathologists (QA TEST ANALYST)- may be asked by Dr. Bingham to [...] possible outcome for your swallowing function. Our QA TEST ANALYST's and contact phone numbers are below: Jayda Block [phone] Caitlin Sow [phone] Dulce Masterson [phone] Scarlet Desir [phone] Awa Villarreal [phone] Araceli [phone] Jack [phone] Liability Claims Manager- SHIRLEY Lin and SHIRLEY Maloney are available to assist with transportation and housing issues related to medical appointments. The family welfare social work professor also provides counselingand information regarding Advance Directives, End of Life issues, Social Security Disability, and referrals to support groups, and other community agencies. Please let Mauricio or Dr Bingham know if you need these services. You may contact Yesenia at [phone] or Yokasta [phone]. [place] [facility] This is for patients who live in [facility] with a cancer diagnosis. The [facility] can provide rides to appointments, nutritional supplements and other services. It requires that your register for services by speaking with our head and neck social workers. If you are outside of [facility] the family welfare social work professor can assist you with what is available in your county. Financial Services-Mu Jarquin and Deedee Olmstead are our financial counselors who can assist your at your appointments or call them at [phone]. Back Order Clerk-Currently an order must be placed by Dr. Bingham to have to see the Back Order Clerk, Arianne Lawor Lia Walters. If you are already seeing Arianne or Lia Mark their direct phone number is [phone]. A Pain Management Clinic Team is available [...] pharmacy. If you are from a smaller [facility], you may want to fill your prescription before you leave [place]. We are committed to providing you quality [...] one in your area or at [facility] at [phone] to make an appointment. Family Medical Leave paperwork is available through your human resources department. Please call human resources and have them fax paperwork to Mushtaq Young RN [phone]. Please allow 2 weeks for completion of FMLA paperwork. Pastoral Care-is able to assist you with your spiritual needs. If you wish to see the automobile mechanic radiator, please let your oncology team know so that they can arrange this. Financial Services- financial counselor at can be reached at [phone]. Integrative Medicine Therapy -these are complementary therapies used in addition to your cancer treatment to assist with anxiety, pain, nausea, poor sleep, and exhaustion. If you wish this additional therapy please contact [email or web address] to set up an appointment. Youmay also request this in the same way if you are inpatient or ask your nurse. THERE IS NO COST FOR THIS SERVICE. Fertility Presevation and Reproductive Health-[facility] offers fertility preservation. This requires a referral from your doctor. If you are interested in sperm banking, egg freezing or other optionsplease let your doctor know before you have chemotherapy or radiation. For information options please call [phone]. [facility] - It is conveniently located on the [facility] on the conference level (CL) of the [facility] and [facility],next door to [facility] and near [facility]. To learn more about [facility], you can visit it on weekdays from 8 a.m. - 9 p.m. and on weekends from 9 a.m. - 6 p.m. [employer]- is a communication tool used through the [...] this must be done in person. Our reception clerk staff can assist you to get a password that can be changed when after you log on the first time. IMPORTANT REMINDER: This portal is only for NON-urgent information. If you have urgent information about your condition please call ANISHA Martínez at [phone]. THERE IS A NEW Raise[employer] ARMANDO FOR SMART PHONES. USE YOUR ARMANDO STORE AND SEARCH Raise5, download the armando and follow the prompts to set up the [facility] format. Through this ARMANDO, you will [...] may request more written information from the [employer] at or email: [email or web address]. Neck Dissection What is a Neck Dissection? [...] may request more written information from the [employer] at or email: [email or web address]. Shoulder Exercise after a Neck Dissection After [...] tube. It is a metal / plastic ([place] one) trach tube that has the following [...] a cuff. _ Cuff Inflation Tube with Marquetry Worker Balloon: The air is inserted through this tube when you inflate the cuff. The line pilot balloon inflates when the cuff inside is inflated. _ Talk to your doctor or health care team if you have any questions. You may request more written information from the [employer] for [employer] at or email: [email or web address]. Nasogastric (NG) Tube A nasogastric tube [...] a dry erase board. documented in this encounterOSU [facility]cy HealthConsult note Author Kvng Hobbs [facility] Note Date/Time January 26, 2025 1:3 0pm [facility] Medical Records Department [address] [place] [address] Anesthesia Postop Eval I 01/26/25 1329 MR#: [id number] Acct: [id number] Name: ASTRID DMUONT Rep #:[id number] : 1955 69 From: Kvng Hobbs PCP: Dr. Duong Durham MD Status:RE G SDC Y Race: C Location: [place] [address]1 Anesthesia: Postop Eval I Current Vital Signs Temperature: 97.9 F Pulse Rate: 74 Blood Pressure: 102/58 Respiratory Rate: 16 Pulse Ox: 97 Oxygen Delivery Method: Room Air Assessment Airway patent: Yes Spontaneous unlabored respirations: Yes Mental status: Awake and Calm nausea: No Vomiting: No Anesthesia Complication: No Fluid Hydration Crystalloid volume administer (ml): 30 Total IV fluid infused: 30 Progress Note Anesthesia document: Postop Eval 1 completed: Yes 01/26/25 1330 <Electronically signed by Kvng Hobbs > Date _ Kvng Cochranignmarysol Signature: Date CC: ~ Signed [facility] Work Phone: Evaluation noteNo assessment information available [facility] Work Phone: Evaluation note* Diagnosis 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- 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, part unspecified [facility] encounter [facility] Diagnosis 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, part unspecified 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, part unspecified [facility] Diagnosis Pre-operative examination for [...] tongue, part unspecified [facility] Diagnosis 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, part unspecified Postoperative state Other postprocedural status [facility] Diagnosis Other postoperative complication of skin- Primary S/P partial glossectomy Other postprocedural status [facility]* Diagnosis 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- 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, part unspecified [facility] Diagnosis 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- 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, part unspecified History of hemorrhage of tongue [facility]* Diagnosis Onset Date Resolution Status Fatty liver acute Irritable bowel syndrome with diarrhea acute [facility] Work Phone: Evaluation note* Diagnosis 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- 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, part unspecified [facility] Diagnosis 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- 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, part unspecified [facility]* Diagnosis Onset Date Resolution Status Oliva's esophagus chronic Irritable bowel syndrome with diarrhea chronic NAFLD (nonalcoholic fatty liver disease) chronic Acute sinusitis acute [facility] Work Phone: Evaluation note* Diagnosis Personal history of malignant neoplasm of tongue- Primary [facility] Diagnosis Onset Date Resolution Status Acute sinusitis acute Oliva's esophagus chronic Irritable bowel syndrome with diarrhea chronic NAFLD (nonalcoholic fatty liver disease) chronic [facility] Work Phone: Evaluation note* Diagnosis 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- 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, part unspecified [facility] Diagnosis Personal history of malignant neoplasm of tongue- Primary [facility] Diagnosis 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 Duong Durham MD Status:[facility] Location: [place] [address] History and Physical Date of Admission: 12/22/23 ASTRID DUMONT, is a 68 F who presents to the office today for follow up. Last visit 12.19.22 for discussion of EGD and colonoscopy results. She saw her primary care physician Dr Durham since her endoscopies and he started her on omeprazole 40 mg qam for new diagnosis of Oliva's esophagus. EGD had appearance of long- segment Oliva's which was confirmed on biopsy, negative fordysplasia; significant bile in the stomach; no pathologic diagnosis from duodenal biopsies. Colonoscopy revealed diverticulosis, no pathologic diagnosis from random colon biopsies. Diarrhea is significantly improved with cholestyramine in morning, doesn't seem like it lasts all day, loperamide in pm. treated with vancomycin for C diff. positive for C diff A/B antigen, negative for C diff toxin, positive for PCR. negative test for EPI, neg for Crohn's, neg for celiac 20 yr hx of IBS-D. Viberzi was effective but cost prohibitive. No dietary triggers in particular. No relief with Lotronex. Never on xifaxan. Never on lomotil. On metformin for 15 yrs. Tested negative for celiac in 2018. Normal fecal elastase in 2021. No melena or hematochezia. Gets a discomfort in the LLQ before diarrhea, that resolves after having multiple bouts of diarrhea in the morning. 12/23/22 EGD and Colonoscopy Impression: - Esophageal mucosal changes consistent with long-segment Oliva's esophagus. Biopsied. - Bile gastritis. - Erythematous duodenopathy. Biopsied. Impression: - Congested mucosa in the sigmoid colon, at the splenic flexure and at the hepatic flexure. Biopsied. - Diverticulosis in the sigmoid colon. MICROSCOPIC DIAGNOSIS A. Duodenum, biopsy: Fragments of duodenal mucosa, no pathologic diagnosis. B. Distal esophagus, biopsy: Fragments of gastroesophageal mucosa with intestinal metaplasia (goblet cell metaplasia), consistent with Oliva's esophagus. Chronic inflammation. Negative for dysplasia. See comment. C. Colon, random biopsy: Fragments of colonic mucosa, no pathologic diagnosis. US abd limited .03.26.2021- Liver measures 21.6cm with fatty infiltration OV 09.29.23- Pt here to follow up regarding her liver. Received fax from [facility] to review her elevated LFT's. Says she was told she had fatty liver before. Diarrhea has been controlled with cholestyramine and prn Lomotil. Denies abdominal pain, cramping and bloating. Heartburn is controlled with Omeprazole. ROS Const Constitutional: No fatigue ENT ENT: No difficulty swallowing Cardio Cardiology: Positive for leg pain with exertion Gastro GI: Positive for bloating and excessive flatus; No abdominal pain, belching, change in bowel habits, change in stool character, coffee ground emesis, constipation, cramping, diarrhea, heartburn, difficulty swallowing, feeling full early, incontinent of stools, Vomiting blood/hematemesis, Blood in stool, loose stools, Black,tarry stools, nausea/dyspepsia, pain with swallowing, vomiting or other Musc Musculoskeletal: Positive for Arthritis, restless legs and leg pain with exertion; No joint pain Skin Skin: No yellowing of the eye or itchy eyes Neuro Neurology: Positive for restless legs Psych Psychiatric: No anxiety and No depression Endo Endocrine: No fatigue Aller/Imm Allergy/Immunologic: No itchy eyes Alvin/Lymp Hematologic/Lymphatic: No easy bleeding or easy bruising Exam Const General: cooperative, no acute distress and well developed Nutritional Appearance: underweight Orientation: alert, awake and oriented x3 Other: BMI 28.9 KG per square meter [facility] Head: normocephalic and atraumatic Nose: external nose normal Face and sinus: normal facial exam Mouth: moist mucous membranes Eyes Pupils: PERRL EOM: EOM intact bilaterally Neck Neck: normal visual inspection, no meningeal signs and trachea midline Carotids: no bruits Chest Chest palpation & inspection: normal inspection of the chest Resp Effort & Inspection: normal respiratory effort and symmetric chest movement Auscultation: Bilateral: Clear to Auscultation Cardio Palpation: normal PMI Rate: regular rate Rhythm: regular rhythm Heart Sounds: S1 normal and S2 normal GI Auscultation: normal bowel sounds Percussion: normal to percussion Palpation: soft, no hepatosplenomegaly and no guarding Other: Abdominal fat. Increase abdominal girth. Clinically no shifting dullness or ascites. General: bimanual renal exam normal bilaterally, bladder normal to inspection and bladder normal to palpation Bimanual Exam- Vagina & Uterus: bladder normal to palpation Musc Musculoskeletal: No joint tenderness, joint redness, joint warmth or decreased range of motion Thoracic/Lumbar Spine: thor and lumb spine abnorm to inspection Skin General: rashes and/or lesions noted, turgor normal and no erythema Wounds: wound noted Neuro General: patient alert, patient awake, patient oriented x3 and no focal motor deficits Speech: speech normal Motor: muscle tone normal throughout Extrem General: normal exam except as noted Other: No pedal edema. Psych Appearance: grossly normal Mood: congruent mood Affect: normal affect Attitude: cooperative Quality Reporting Tobacco Screening ([facility] 138) Smoking Status: Never smoker Assessment and Plan Assessment and Plan (1) NAFLD (nonalcoholic fatty liver disease): Status: Chronic Plan: Based on the labs of June 2023, her fib 4 score is 2.26 approximate fibrosis stage Felipa 2-3. Her NAFLD score is -0.66 which correlates with indeterminant score. Last liver chemistry ALT 50, AST 55 similar with no significant change. Patientdid not had any full workup for elevated liver chemistry therefore comprehensiveworkup ordered. She has hepatitis A, B C panel negative but HSV and EBV orderedincluding autoimmune, metabolic disease workup. Last liver ultrasound from March 2021 reviewed. Liver enlarged 21.6 cm with no demonstrated mass lesion. Fatty infiltration with increased echogenicity. CBD 4.0 cm. Pancreas and biliary system in normal limit. Liver ultrasound with echogenicity and AFP ordered. Follow-up in 3 months. Patient was educated about the risk factor, natural history and consequences of metabolic dysfunction associated steatotic liver disease. Advised weight loss, creative services manager consult, decreased calorie intake, increased mixed exercise, betterglucose control and blood pressure and dyslipidemia. Last fasting profile in June 2023 shows triglyceride 90, LDL 36 and HDL 60. TSH and free T4 also in normal limit. A1c 6.7 with glucose 207. Patient on metformin 1000 mg twice daily and empagliflozin. Medication reconciliation done. It does not seem any new ideation of medication the last 3months. There is no very outstanding hepatotoxic medication on the list. Patient not on acetaminophen but if she has to take, advised less than 1 g/day. Patient also has crystallize associated arthritis disease not clear exactly whaton allopurinol and Plaquenil. Autoimmune workup is ordered. (2) Oliva's esophagus: Status: Chronic Qualifiers: Oliva's esophagus type: without dysplasia Qualified Code(s): K22.70 -Oliva's esophagus without dysplasia Plan: The patient is doing well on omeprazole 40 mg daily. Denies any heartburn symptoms, reflux or dyspeptic symptoms. Next EGD scheduled in December 2022. (3) Irritable bowel syndrome with diarrhea: Status: Chronic Plan: controlled BM, Sometimes 2-3 soft sold, formed stool. Continue 1 Lomotil in morning and cholestyrmaine. Duodenogastric reflux. Orders: Orders AFP, Tumor Marker 3 Months K22.70 - Oliva's esophagus without dysplasia, K58.0- Irritable bowel syndrome with diarrhea, K76.0 - Fatty (change of) liver, not elsewhere classified Anti-Mitochondrial AB 3 Months K22.70 - Oliva's esophagus without dysplasia, K58.0 - Irritable bowel syndrome with diarrhea, K76.0 - Fatty (change of) liver,not elsewhere classified Anti-Smooth Muscle ABS 3 Months K22.70 - Oliva's esophagus without dysplasia, K58.0 - Irritable bowel syndrome with diarrhea, K76.0 - Fatty (change of) liver,not elsewhere classified CBC W/Diff, Automated 3 Months K22.70 - Oliva's esophagus without dysplasia, K58.0 - Irritable bowel syndrome with diarrhea, K76.0 - Fatty (change of) liver,not elsewhere classified ANCA 3 Months K22.70 - Oliva's esophagus without dysplasia, K58.0 - Irritable bowel syndrome with diarrhea, K76.0 - Fatty (change of) liver, not elsewhere classified Angiotensin Convert Enzyme 3 Months K22.70 - Oliva's esophagus without dysplasia, K58.0 - Irritable bowel syndrome with diarrhea, K76.0 - Fatty (changeof) liver, not elsewhere classified Hemoglobin A1c 3 Months K22.70 - Oliva's esophagus without dysplasia, K58.0 - Irritable bowel syndrome with diarrhea, K76.0 - Fatty (change of) liver, not elsewhere classified Ferritin 3 Months K22.70 - Oliva's esophagus without dysplasia, K58.0 - Irritable bowel syndrome with diarrhea, K76.0 - Fatty (change of) liver, not elsewhere classified CRP 3 Months K22.70 - Oliva's esophagus without dysplasia, K58.0 - Irritable bowel syndrome with diarrhea, K76.0 - Fatty (change of) liver, not elsewhere classified Comprehensive Metabolic Profil 3 Months K22.70 - Oliva's esophagus without dysplasia, K58.0 - Irritable bowel syndrome with diarrhea, K76.0 - Fatty (changeof) liver, not elsewhere classified Ceruloplasmin 3 Months K22.70 - Oliva's esophagus without dysplasia, K58.0 - Irritable bowel syndrome with diarrhea, K76.0 - Fatty (change of) liver, not elsewhere classified Copper, Serum or Plasma 3 Months K22.70 - Oliva's esophagus without dysplasia,K58.0 - Irritable bowel syndrome with diarrhea, K76.0 - Fatty (change of) liver,not elsewhere classified Lipid Profile 3 Months K22.70 - Oliva's esophagus without dysplasia, K58.0 - Irritable bowel syndrome with diarrhea, K76.0 - Fatty (change of) liver, not elsewhere classified Prothrombin Time w/INR 3 Months K22.70 - Oliva's esophagus without dysplasia, K58.0 - Irritable bowel syndrome with diarrhea, K76.0 - Fatty (change of) liver,not elsewhere classified HIV - [facility] 3 Months K22.70 - Oliva's esophagus without dysplasia, K58.0 - Irritable bowel syndrome with diarrhea, K76.0 - Fatty (change of) liver, not elsewhere classified GIOVANNY w/ Reflex Mult Confirm 3 Months K22.70 - Oliva's esophagus without dysplasia, K58.0 - Irritable bowel syndrome with diarrhea, K76.0 - Fatty (changeof) liver, not elsewhere classified Iron+Iron Binding Capacity 3 Months K22.70 - Oliva's esophagus without dysplasia, K58.0 - Irritable bowel syndrome with diarrhea, K76.0 - Fatty (changeof) liver, not elsewhere classified Vitamin D,25 Hydroxy 3 Months K22.70 - Oliva's esophagus without dysplasia, K58.0 - Irritable bowel syndrome with diarrhea, K76.0 - Fatty (change of) liver,not elsewhere classified EBV Acute Prof IgG / IgM 3 Months K22.70 - Oliva's esophagus without dysplasia, K58.0 - Irritable bowel syndrome with diarrhea, K76.0 - Fatty (changeof) liver, not elsewhere classified Miscellaneous Lab Procedure 3 Months K22.70 - Oliva's esophagus without dysplasia, K58.0 - Irritable bowel syndrome with diarrhea, K76.0 - Fatty (changeof) liver, not elsewhere classified LDH 3 Months K22.70 - Oliva's esophagus without dysplasia, K58.0 - Irritable bowel syndrome with diarrhea, K76.0 - Fatty (change of) liver, not elsewhere classified ABD Limited w/ Elastography 3 Months K76.0 - Fatty (change of) liver, not elsewhere classified I have examined the patient and the H&P has been reviewed. There are no clinicalchanges since date of exam. 12/22/23 0641 <Electronically signed by Abdi Jackson DO> Cosigner Signature (if applicable): CC: Dr. 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.3] Procedures KS PART REMOVAL TONGUE,<1/2 KS SPLIT GRFT,HEAD,FAC,HAND,FEET <100SQCM KS REMOVAL NODES, NECK,CERV MOD RAD GLOSSECTOMY LESS THAN 1/2 TONGUE GRAFT SKIN SPLIT THICKNESS EAR EYELID FACE MOUTH ORBIT (STSG) LYMPHADENECTOMY CERVICAL (MODIFIED RADICAL NECK DISSECTION) Ricky Bingham MD [address] [place] [address] [facility] [address] [place] [address] Referral ID Status Reason Start Date Expiration Date Visits Re quested Visits Authorized [id number] 1 1 [facility] Instructions Instruction Description Start Date Patient advised to follow-up with Primary Care Physician for BMI management. Advance Directives No Advanced Directives Records Found Advance Directive Response Recorded Date/ Time Advance Directives Yes March 05 11:05am Living Will Yes July 23 8:58am Power of Swatch Cutter Yes July 23, 2019 8:58am Latest Code Status on File Code Status [...] Code 07/12/2022 5:45 AM 07/12/2022 2:36 PM Advance Directive Response Recorded Date/ Time Advance Directives Yes March 05 10:05am Living Will Yes July 23 7:58am Power of Swatch Cutter Yes July 23, 2019 7:58am Advance Directive Response Recorded Date/ Time Name of Medical Power of Swatch Cutter SANDRA YONNY December 17, 2022 11:55am Advance Directives Yes March 05 11:05am Living Will Yes December 17, 2022 11:55am Power of Swatch Cutter Yes December 17 11:55am Advance Directive Response Recorded Date/ Time Advance Directives Yes March 05 11:05am Living Will Yes December 17, 2022 11:55am Power of Swatch Cutter Yes December 17 11:55am Advance Directive Response Recorded Date/ Time Advance Directives Yes March 05 10:05am Living Will Yes December 17, 2022 10:55am Power of Swatch Cutter Yes December 17 10:55am Advance Directive Response Recorded Date/ Time Name of Medical Power of Swatch Cutter DTR, SANDRA WOLFGANG MCCANN December 18, 2023 9:58am Advance Directives Yes March 05 11:05am Living Will Yes December 18, 2023 9:58am Power of Swatch Cutter Yes December 17 9:58am Date Activated Date Inactivated Comments 07/24/2022 5:01 PM Date Activated Date Inactivated Comments 07/12/2022 2:36 PM 07/24/2022 5:01 PM Date Activated Date Inactivated Comments 07/12/2022 5:45 AM 07/12/2022 2:36 PM Advance Directive Response Recorded Date/ Time Living Will Yes December 18, 2023 9:58am Do you have a Healthcare Power of Swatch Cutter? Yes December 18, 2023 9:58am Living Will Yes January 20, 2025 1:36pm Do you have a Healthcare Power of Swatch Cutter? Yes January 20, 2025 1:36pm Name of Medical Power of Swatch Cutter DTR January 20, 2025 1:36pm Advance Directives Yes March 05 11:05am Assessments There may be information available, but it has not been provided by the sender. Review of System There may be information available, but it has not been provided by the sender. Family History No Family History Records Found Relationship Condition Age at Onset Recorded Date/T anika brother Leukemia Unknown mother Osteoarthritis Unknown Chief Complaint and Reason for Visit Chief Complaint TONGUE BIOPSY INT LABS Chief Complaint TONGUE BIOPSY INT LABS SCREENING Chief Complaint SCREENING EORDER EORDER- SPUTUM Chief Complaint SCREENING EORDER EORDER- SPUTUM E ORDERS Chief Complaint EORDER EORDER- SPUTUM E ORDERS E ORDERS Chief Complaint E ORDERS Irritable bowel syndrome Reason for Visit Fatty liver Irritable bowel syndrome with diarrhea Chief Complaint Irritable bowel synd pilar INT LABS Reason for Visit Fatty liver Irritable bowel syndrome with diarrhea Chief Complaint E ORDERS E ORDERS Chief Complaint E ORDERS FU MEDICATION 1ST VISIT 60 CONGESTED BRONCHITIS INT LABS Reason for Visit Oliva's esophagus Irritable bowel syndrome with diarrhea NAFLD (nonalcoholic fatty liver disease) Acute sinusitis Chief Complaint FU MEDICATION 1ST SIT 60 CONGESTED BRONCHITIS INT LABS NAFLD Reason for Visit Oliva's esophagus Irritable bowel syndrome with diarrhea NAFLD (nonalcoholic fatty liver disease) Acute sinusitis Chief Complaint CONGESTED BRONCHITIS INT LABS NAFLD EORDER 3 MO FU Reason for Visit Acute sinusitis Oliva's esophagus Irritable bowel syndrome with diarrhea NAFLD (nonalcoholic fatty liver disease) Chief Complaint Admit Date FATTY LIVER November 23, 2024 7:04am Reason for Visit Admit Date Cirrhosis January 26, 2025 11: 16am Oliva's esophagus January 26, 2025 11: 16am Duodenogastric bile reflux January 26, 2 025 11:16am NAFLD (nonalcoholic fatty liver disease) January 26, 2025 11:16am Chief Complaint Admit Date FATTY LIVER November 23, 2024 7:04am 6 M FU February 02, 2025 2:2 6pm E-ORDER February 02, 2025 2:5 4pm Reason for Visit Admit Date Cirrhosis January 26, 2025 11: 16am Oliva's esophagus January 26, 2025 11: 16am Duodenogastric bile reflux January 26, 2 025 11:16am NAFLD (nonalcoholic fatty liver disease) January 26, 2025 11:16am NAFLD (nonalcoholic fatty liver disease) February 02, 2025 2:26pm Chief Complaint Admit Date FATTY LIVER November 23, 2024 7:04am 6 M FU February 02, 2025 2:2 6pm E-ORDER February 02, 2025 2:5 4pm SCREENING March 21, 2025 8:05a m Chief Complaint Admit Date 6 M FU February 02, 2025 2:2 6pm E-ORDER February 02, 2025 2:5 4pm SCREENING March 21, 2025 8:05a m Chief Complaint Admit Date 6 M FU February 02, 2025 2:2 6pm E-ORDER February 02, 2025 2:5 4pm SCREENING March 21, 2025 8:05a m FU April 06, 2025 3:18 pm Reason for Visit Admit Date Cirrhosis January 26, 2025 11: 16am Oliva's esophagus January 26, 2025 11: 16am Duodenogastric bile reflux January 26 025 11:16am NAFLD (nonalcoholic fatty liver disease) January 26, 2025 11:16am NAFLD (nonalcoholic fatty liver disease) February 02, 2025 2:26pm Diarrhea April 06, 2025 3:18 pm Chief Complaint Admit Date 6 M FU February 02, 2025 2:2 6pm E-ORDER February 02, 2025 2:5 4pm SCREENING March 21, 2025 8:05a m FU April 06, 2025 3:18 pm EORDERS April 07, 2025 9:02 am Reason for Visit Admit Date Cirrhosis January 26, 2025 11: 16am Oliva's esophagus January 26, 2025 11: 16am Duodenogastric bile reflux January 26 11:16am NAFLD (nonalcoholic fatty liver disease) January 26, 2025 11:16am NAFLD (nonalcoholic fatty liver disease) February 02, 2025 2:26pm Diarrhea April 06, 2025 3:18 pm NAFLD (nonalcoholic fatty liver disease) April 06, 2025 3:18pm Reason for Referral Specialty Diagnoses / Procedures Referred By Contac t Referred To Contact PreOp Diagnoses 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 Heather Sánchez PA-C [address] [place] [address] Referral ID Status Reason Start Date Expiration Date V isits Requested Visits Authorized [id number] New Request 06/13/2022 07/08/2023 1 1 Specialty Diagnoses / Procedures Referred By Contac t Referred To Contact Oncology Diagnoses 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 Heather Sánchez PA-C [address] [place] [address] Referral ID Status Reason Start Date Expiration Date V isits Requested Visits Authorized [id number] New Request 06/13/2022 07/08/2023 1 1 Specialty Diagnoses / Procedures Referred By Contac t Referred To Contact Diagnoses 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 Procedures CT CHEST WITH CONTRAST CHG DIAGNOSTIC COMPUTED TOMOGRAPHY THORAX W/CONTRAST Heather Sánchez PA-C [address] [place] [address] Referral ID Status Reason Start Date Expiration Date V isits Requested Visits Authorized [id number] New Request 06/13/2022 07/08/2023 1 1 Specialty Diagnoses / Procedures Referred By Contac t Referred To Contact Diagnoses 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 Procedures CT NECK WITH CONTRAST [place] CT NECK TISSUE CONTRAST Heather Sánchez PA-C [address] [place] [address] Referral ID Status Reason Start Date Expiration Date V isits Requested Visits Authorized [id number] New Request 06/13/2022 07/08/2023 1 1 Referral ID Status Reason Start Date Expiration Date V isits Requested Visits Authorized [id number] Pending Review 06/13/2022 07/08/2023 1 1 Specialty Diagnoses / Procedures Referred By Contac t Referred To Contact Procedures DIRECT ADMIT REQUEST Kailey Art, CAMERA REPAIR TECHNICIAN-SUPPORT GROUP MANAGER [address] [facility] [address] [place] [address] Referral ID Status Reason Start Date Expiration Date V isits Requested Visits Authorized [id number] New Request 07/24/2022 08/18/2023 1 1 Specialty Diagnoses / Procedures Referred By Contac t Referred To Contact Diagnoses 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 Heather Sánchez PA-C [address] [place] [phone] Marlen Reeves, DDS [address] [facility] [address] [place] [address] Referral ID Status Reason Start Date Expiration Date V isits Requested Visits Authorized [id number] Schedule Outgoing - Transfer of Care 11/20/2022 12/15/2023 1 1 Summary Purpose Additional Source Comments Goals (unrecognized section and content) Goals may be documented in a n alternate sectionGoals may be documented in an alternate sectionGoals may be documented in an alternate sectionGoals may be documented in an alternate sectionGoals may be documented in an alternate sectionGoals may be documented in an alternate sectionGoals may be documented in an alternate sectionGoals may be documented in an alternate sectionGoals may be documented in an alternate sectionGoals may be documented in an alternate sectionGoals may be documented in an alternate section Reason for Visit (unrecogniz ed section and content) Reason Comments New Patient Patient was referred for tongue cancer. The patient has had two prior tongue biopses tht were negative for oral cancer; one in 12/2019 and another in 11/2021. Her most recent biopsy was in January of this year and she was advised she had oral cancer. No prior history of chemotherapy nor radiation therapy. 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 Heather Sánchez PA-C [address] [address] Referral ID Status Reason Start Date Expiration Date V isits Requested Visits Authorized [id number] Pending Review 06/13/2022 07/08/2023 1 1 Reason Comments Post-Op Problem Specialty Diagnoses / Procedures Referred By Joe spangler Referred To Contact [facility] [address] [place] [address] [facility] [address] [place] [address] Referral ID Status Reason Start Date Expiration Date Visits Re quested Visits Authorized [id number] 1 1 Reason Comments Post Op Visit Reason Comments Follow-up Reason Comments Follow-up Care Teams (unrecognized sec tion and content) Film Color Tester Relationship Specialty Start Date End Date Duong Durham MD [address] [place] [address] PCP - General Family Medicine 06/13/22 Film Color Tester Relationship Specialty Start Date End Date Duong Durham MD [address] [place] [address] PCP - General Family Medicine 06/13/22 Dr Myles Gupta Referring Provider Dentistry 07/03/22 Film Color Tester Relationship Specialty Start Date End Date Duong Durham MD [address] [place] [address] PCP - General Family Medicine 06/13/22 Dr Myles Gupta Referring Provider Dentistry 07/03/22 Film Color Tester Relationship Specialty Start Date End Date Duong Durham MD [address] [place] [address] PCP - General Family Medicine 06/13/22 Dr Myles Gupta Referring Provider Dentistry 07/03/22 Film Color Tester Relationship Specialty Start Date End Date Duong Durham MD [address] [place] [address] PCP - General Family Medicine 06/13/22 Dr Myles Gupta Referring Provider Dentistry 07/03/22 Film Color Tester Relationship Specialty Start Date End Date Duong Durham MD [address] [place] [address] PCP - General Family Medicine 06/13/22 Dr Myles Gupta Referring Provider Dentistry 07/03/22 Film Color Tester Relationship Specialty Start Date End Date Duong Durham MD [address] [place] [phone] PCP - General Family Medicine 06/13/22 Dr Myles Gupta Referring Provider Dentistry 07/03/22 Team Status: Active Member Role Status Dates Dr. Duong Russell MD Family Provider Active Dr. Duong Durham MD Primary Care Provider Active Team Status: Inactive Member Role Status Dates Dr. Duong Durham MD Primary Care Provider, Referr ing Provider Active Yanique Cabrera MOTOR VEHICLE ASSEMBLER, MOTOR VEHICLE ASSEMBLER-C Attending Provider Active Team Status: Inactive Member Role Status Dates Dr. Duong Durham MD Primary Care Pr ovider, Attending Provider, Referring Provider Active Team Status: Inactive Member Role Status Dates Dr. Duong Durham MD Primary Care Provider Active Yanique Cabrera MOTOR VEHICLE ASSEMBLER, MOTOR VEHICLE ASSEMBLER-C Attending Provider, Referrin g Provider Active Team Status: Active Member Role Status Dates Dr. Duong Durham MD Primary Care Provider Active Yanique Cabrera MOTOR VEHICLE ASSEMBLER, MOTOR VEHICLE ASSEMBLER-C Attending Provider, Referrin g Provider Active Film Color Tester Relationship Specialty Start Date End Date Duong Durham MD [address] [facility] [address] [place] [address] PCP - General Family Medicine 06/13/22 Dr Myles Gupta Referring Provider Dentistry 07/03/22 Team Status: Active Member Role Status Dates Dr. Duong Durham MD Primary Care Provider, Referr ing Provider Active Dr. Abdi Jackson DO Attending Provider, Other Prov ider Active Team Status: Inactive Member Role Status Dates Dr. Duong Durham MD Primary Care Provider, Referr ing Provider Active Dr. Abdi Jackson DO Attending Provider Active Film Color Tester Relationship Specialty Start Date End Date Duong Durham MD [address] [place] [phone] PCP - General Family Medicine 06/13/22 Dr Myles Gupta Referring Provider Dentistry 07/03/22 Team Status: Inactive Member Role Status Dates Dr. Duong Durham MD Primary Care Provider, Referr ing Provider Active Dr. Giovanni Hidalgo MD Attending Provider Active Team Status: Inactive Member Role Status Dates Dr. Duong Durham MD Primary Care Provider, Referr ing Provider Active Theo Guerra PA, PA Attending Provider Active Team Status: Active Member Role Status Dates Dr. Duong Durham MD Primary Care Pr ovider, Attending Provider, Referring Provider Active Team Status: Active Member Role Status Dates Dr. Duong Durham MD Primary Care Provider Active Dr. Giovanni Hidalgo MD Attending Provider, Referring P rovider Active Team Status: Inactive Member Role Status Dates Dr. Duong Durham MD Primary Care Provider Active Dr. Giovanni Hidalgo MD Attending Provider, Referring P rovider Active Film Color Tester Relationship Specialty Start Date End Date Duong Durham MD [address] [place] [phone] PCP - General Family Medicine 06/13/22 Dr Myles Gupta Referring Provider Dentistry 07/03/22 Team Status: Active Member Role Status Dates Dr. Duong Russell MD Family Provider Active Team Status: Inactive Member Role Status Dates Dr. Duong Durham MD Referring Provider Active Dr. Giovanni Hidalgo MD Attending Provider Active Film Color Tester Relationship Specialty Start Date End Date Duong Durham MD [address] [place] [phone] PCP - General Family Medicine 06/13/22 Dr Myles Gupta Referring Provider Dentistry 07/03/22 Film Color Tester Relationship Specialty Start Date End Date Duong Durham MD [address] [place] [phone] PCP - General Family Medicine 06/13/22 Dr Mlyes Gupta Referring Provider Dentistry 07/03/22 Team Status: Active Member Role Status Dates Dr. Duong Durham MD Primary Care Provider Active Team Status: Inactive Member Role Status Dates Dr. Duong Durham MD Primary Care Provider Active Start: November 23, 2024 End: November 23, 2024 MIKE Corbett Attending Provider Active Start: November 23, 2024 End: November 23, 2024 MIKE Corbett Referring Provider Active Start: November 23, 2024 End: November 23, 2024 Team Status: Inactive Member Role Status Dates Dr. Duong Durham MD Primary Care Provider Active Start: January 26, 2025 End: January 26, 2025 Dr. Duong Durham MD Referring Provider Active Start: January 26, 2025 End: January 26, 2025 Dr. Abdi Jackson DO Attending Provider Active Start: January 26, 2025 End: January 26, 2025 Team Status: Active Member Role Status Dates Dr. Duong Durham MD Primary Care Provider Active Start: January 26, 2025 Dr. Duong Durham MD Referring Provider Active Start: January 26, 2025 Dr. Abdi Jackson DO Attending Provider Active Start: January 26, 2025 Dr. Abdi Jackson DO Other Provider Active St art: January 26, 2025 Team Status: Inactive Member Role Status Dates Dr. Duong Durham MD Primary Care Provider Active Start: February 02, 2025 End: February 02, 2025 Dr. Duong Durham MD Referring Provider Active Start: February 02, 2025 End: February 02, 2025 MIKE Corbett Attending Provider Active Start: February 02, 2025 End: February 02, 2025 Team Status: Inactive Member Role Status Dates Dr. Duong Durham MD Primary Care Provider Active Start: February 02, 2025 End: February 02, 2025 MIKE Corbett Attending Provider Active Start: February 02, 2025 End: February 02, 2025 MIKE Corbett Referring Provider Active Start: February 02, 2025 End: February 02, 2025 Team Status: Inactive Member Role Status Dates Dr. Duong Durham MD Primary Care Provider Active Start: March 15, 2025 End: March 15, 2025 Dr. Duong Durham MD Attending Provider Active Start: March 15, 2025 End: March 15, 2025 Dr. Duong Durham MD Referring Provider Active Start: March 15, 2025 End: March 15, 2025 Team Status: Active Member Role Status Dates Dr. Duong Durham MD Primary Care Provider Active Start: March 21, 2025 Hernesto Carrillo MOTOR VEHICLE ASSEMBLER, MOTOR VEHICLE ASSEMBLER-C Attending Provider Active Start: March 21, 2025 Hernesto Carrillo MOTOR VEHICLE ASSEMBLER, MOTOR VEHICLE ASSEMBLER-C Referring Provider Active Start: March 21, 2025 Team Status: Inactive Member Role Status Dates Dr. Duong Durham MD Primary Care Provider Active Start: March 21, 2025 End: March 21, 2025 Hernesto Carrillo MOTOR VEHICLE ASSEMBLER, MOTOR VEHICLE ASSEMBLER-C Attending Provider Active Start: March 21, 2025 End: March 21, 2025 Hernesto Carrillo MOTOR VEHICLE ASSEMBLER, MOTOR VEHICLE ASSEMBLER-C Referring Provider Active Start: March 21, 2025 End: March 21, 2025 Team Status: Inactive Member Role Status Dates Dr. Duong Durham MD Primary Care Provider Active Start: April 06, 2025 End: April 06, 2025 Dr. Duong Durham MD Referring Provider Active Start: April 06, 2025 End: April 06, 2025 MIKE Corbett Attending Provider Active Start: April 06, 2025 End: April 06, 2025 Team Status: Active Member Role/Relationship Status Dates Dr. Duong Durham MD Primary Care Provider Active Team Status: Inactive Member Role/Relationship Status Dates Dr. Duong Durham MD Primary Care Provider Active Start: January 26, 2025 End: January 26, 2025 Dr. Duong Durham MD Referring Provider Active Start: January 26, 2025 End: January 26, 2025 Dr. Abdi Jackson DO Attending Provider Active Start: January 26, 2025 End: January 26, 2025 Team Status: Active Member Role/Relationship Status Dates Dr. Duong Durham MD Primary Care Provider Active Start: January 26, 2025 Dr. Duong Durham MD Referring Provider Active Start: January 26, 2025 Dr. Abdi Jackson DO Attending Provider Active Start: January 26, 2025 Dr. Abdi Jackson DO Other Provider Active St art: January 26, 2025 Team Status: Inactive Member Role/Relationship Status Dates Dr. Duong Durham MD Primary Care Provider Active Start: February 02, 2025 End: February 02, 2025 Dr. Duong Durham MD Referring Provider Active Start: February 02, 2025 End: February 02, 2025 MIKE Corbett Attending Provider Active Start: February 02, 2025 End: February 02, 2025 Team Status: Inactive Member Role/Relationship Status Dates Dr. Duong Durham MD Primary Care Provider Active Start: February 02, 2025 End: February 02, 2025 MIKE Corbett Attending Provider Active Start: February 02, 2025 End: February 02, 2025 MIKE Corbett Referring Provider Active Start: February 02, 2025 End: February 02, 2025 Team Status: Inactive Member Role/Relationship Status Dates Dr. Duong Durham MD Primary Care Provider Active Start: March 15, 2025 End: March 15, 2025 Dr. Duong Durham MD Attending Provider Active Start: March 15, 2025 End: March 15, 2025 Dr. Duong Durham MD Referring Provider Active Start: March 15, 2025 End: March 15, 2025 Team Status: Inactive Member Role/Relationship Status Dates Dr. Duong Durham MD Primary Care Provider Active Start: March 21, 2025 End: March 21, 2025 Hernesto Carrillo MOTOR VEHICLE ASSEMBLER, MOTOR VEHICLE ASSEMBLER-C Attending Provider Active Start: March 21, 2025 End: March 21, 2025 Hernesto Carrillo MOTOR VEHICLE ASSEMBLER, MOTOR VEHICLE ASSEMBLER-C Referring Provider Active Start: March 21, 2025 End: March 21, 2025 Team Status: Inactive Member Role/Relationship Status Dates Dr. Duong Durham MD Primary Care Provider Active Start: April 06, 2025 End: April 06, 2025 Dr. Duong Durham MD Referring Provider Active Start: April 06, 2025 End: April 06, 2025 MIKE Corbett Attending Provider Active Start: April 06, 2025 End: April 06, 2025 Team Status: Inactive Member Role/Relationship Status Dates Dr. Duong Durham MD Primary Care Provider Active Start: April 07, 2025 End: April 07, 2025 MIKE Corbett Attending Provider Active Start: April 07, 2025 End: April 07, 2025 MIKE Corbett Referring Provider Active Start: April 07, 2025 End: April 07, 2025 Film Color Tester Relationship Specialty Start Date End Date Duong Durham MD PCP - General Family Medicine 06/13/22 Dr Myles Gupta Referring Provider Dentistry 07/03/22 Scheduled Active and Recently Administ ered Medications (unrecognized section and content) Medication Order 07/15/2022 07/16/2022 07/17/2022 allopurinol (ZYLOPRIM) tablet 100 mg 100 mg, Per NG tube, DAILY EVERY MORNING, First dose on Fri07/16/22 at 1045, Until Discontinued, Post-op/Post-Proc 1303 (Given - Provider: Ethel Garcia RN) 0851 (Given - Provider: Amanda Nichols RN) Ampicillin-Sulbactam Sodium (UNASYN) 1.5 g in sodium chloride 0.9% (MB PLUS) 50 mL (total volume) IVPB 1.5 g, Intravenous, Administer over 30 Minutes, EVERY 6 HOURS NON-STANDARD, 24 doses, First dose on Fri07/12/22 at 1500, Last dose on Fri07/18/22 at 0900, Contains a penicillin., Post-op/Post-Proc 0330 ($$New Bag$$ - Provider: Giovana Saavedra RN)0334 (Rate/Dose Verify - Provider: Kailey Grant RN)0400 (Stopped - Provider: Giovana Saavedra RN)0846 ($$New Bag$$ - Provider: Kailey Grant RN)0847 (Rate/Dose Verify - Provider: Kailey Grant RN)0917 (Stopped - Provider: Kailey Grant RN)1534 ($$New Bag$$ - Provider: Kailey Grant RN)1604 (Stopped - Provider: Divya Jauregui RN)1615 (Stopped - Provider: Kailey Grant RN)2019 ($$New Bag$$ - Provider: Divya Jauregui RN)2049 (Stopped - Provider: Divya Jauregui RN) 0309 ($$New Bag$$ - Provider: Divya Jauregui RN)0339 (Stopped - Provider: Divya Jauregui RN)0912 ($$New Bag$$ - Provider: Ethel Garcia RN)0942 (Stopped - Provider: Divya Jauregui RN)1640 ($$New Bag$$ - Provider: Ethel Garcia RN)1710 (Stopped - Provider: Divya Jauregui RN)2107 ($$New Bag$$ - Provider: Divya Jauregui RN)2137 (Stopped - Provider: Divya Jauregui RN) 0259 ($$New Bag$$ - Provider: Divya Jauregui RN)0329 (Stopped - Provider: Amanda Nichols RN)1159 ($$New Bag$$ - Provider: Amanda Nichols RN)1500 (Canceled Entry - Provider: System Discharge - Comment: Automatically canceled at discontinue of medication order) aspirin chewable tablet 81 mg 81 mg, Per NG tube, DAILY EVERY MORNING, First dose on Fri07/16/22 at 1045, Until Discontinued, Post-op/Post-Proc 1303 (Given - Provider: Ethel Garcia RN) 0851 (Given - Provider: Amanda Nichols RN) atenolol (TENORMIN) tablet 25 mg 25 mg, Per NG tube, DAILY EVERY MORNING, First dose on Fri07/16/22 at 1045, Until Discontinued, , Post-op/Post-Proc 1303 (Given - Provider: Ethel Garcia RN) 0851 (Given - Provider: Amanda Nichols RN) chlorhexidine (PERIDEX) 0.12 % oral solution 15 mL 15 mL, Oral, EVERY 12 HOURS, First dose on Fri07/17/22 at 0900, Until Discontinued 0851 (Given - Provider: Amanda Nichols RN) Enoxaparin Sodium (LOVENOX) injection 40 mg 40 mg, Subcutaneous, EVERY 24 HOURS, First dose on Fri07/13/22 at 0900, Until Discontinued, , Indications: DVT/PE prophylaxis, Post-op/Post-Proc 0845 (Given - Provider: Kailey Grant RN) 0914 (Given - Provider: Ethel Garcia, ANISHA) 0851 (Given - Provider: Amanda Nichols, ANISHA) escitalopram (LEXAPRO) tablet 10 mg 10 mg, Per NG tube, DAILY EVERY MORNING, First dose on Fri07/16/22 at 1045, Until Discontinued 1303 (Given - Provider: Ethel Garcia RN) 0851 (Given - Provider: Amanda Nichols RN) esomeprazole (NEXIUM) oral granules packet 40 mg 40 mg, Per NG tube, DAILY, First dose on Fri07/14/22 at 1130, Until Discontinued, Mix packet contents with at least 15 mL of water to completely dissolve the powder. Let stand 2 min to thicken. Stir or mix again, then administer within 30 min. For oral use, have patient drink entire contents of mixed packet. For enteral tubes: draw mixture into catheter-tipped (New) syringe and administer through enteral tube (size Fr 6 or larger); refill syringe with 15 mL of water and flush., Indications: GERD 0844 (Given - Provider: Kailey Grant RN) 0913 (Given - Provider: Ethel Garcia RN) 0850 (Given - Provider: Amanda Nichols RN) eucerin cream 1 Application 1 Application, Topical, 3 TIMES DAILY, First dose on Fri07/17/22 at 0900, Until Discontinued, Apply to left leg skin graft site TID Patient may self-administer. 0903 (Given - Provider: Amanda Nichols RN)1400 (Canceled Entry - Provider: System Discharge - Comment: Automatically canceled at discontinue of medication order) Glucerna 1.5 Jessica LIQD 240 mL (CANCELED) 240 mL, Nasogastric, at 240 mL/hr, 5 times daily enteral feeds, First dose on Fri07/15/22 at 1800, Until Discontinued 1756 (New Feeding/Supplement - Provider: Kailey Grant RN)2244 (Canceled Entry - Provider: Divya Jauregui RN - Comment: Pt refused) 0603 (New Feeding/Supplement - Provider: Divya Jauregui, RN)0914 (New Feeding/Supplement - Provider: Ethel Garcia, ANISHA)1307 (New Feeding/Supplement - Provider: Ethel Garcia, ANISHA)1744 (New Feeding/Supplement - Provider: Ethel Garcia RN)2108 (Canceled Entry - Provider: Divya Jauregui RN - Comment: Gabe ellis MD is aware) 0600 (Canceled Entry - Provider: Araceli To PA-C - Comment: Automatically canceled at discontinue of medication order) hydroCHLOROthiazide (HYDRODIURIL) tablet 25 mg 25 mg, Per NG tube, DAILY EVERY MORNING, First dose on Fri07/16/22 at 1045, Until Discontinued, Post-op/Post-Proc 1303 (Given - Provider: Ethel Garcia RN) 0851 (Given - Provider: Amanda Nichols RN) hydroxychloroquine (PLAQUENIL) suspension 200 mg 200 mg, Per NG tube, DAILY, First dose (after last modification) on Fri07/13/22 at 0900, Until Discontinued 0845 (Given - Provider: Kailey Grant RN) 0913 (Given - Provider: Ethel Garcia, ANISHA) 0852 (Given - Provider: Amanda Nichols RN) insulin lispro (HumaLOG) injection(Linked Group 1) Subcutaneous, 4 TIMES DAILY WITH MEALS & AT BEDTIME, First dose on Fri07/17/22 at 0800, Until Discontinued, Correction Factor: 151-175 = 1 unit; 176-200 = 2 units; 201-225 = 3 units; 226-250 = 4 units; 251-275 = 5 units; 276-300 = 6 units; 301-325 = 7 units; 326-350 = 8 units; Kwikpen: Prime pen before each injection; refer to Pen Priming and Care Handout for further details. Warning! Confirm patient. Insulin pen is for labeled individual patient use ONLY. 0856 (Not Given - Provider: Amanda Nichols RN - Reason: Order Parameters not met)1200 (Canceled Entry - Provider: System Discharge - Comment: Automatically canceled at discontinue of medication order) insulin regular (HumuLIN R;NovoLIN R) injection (CANCELED) Subcutaneous, EVERY 6 HOURS, First dose on Fri07/12/22 at 1445, Until Discontinued, Correction factor parameters most appropriate for NPO or tube feeding patients: Blood glucose under 60 = call H.O.; 151 - 200 = 2 units; 201 - 250 = 4 units; 251 - 300 = 6 units; 301 - 350 = 8 units; 351 - 400 = 10 units; Over 400 = call H.O. An initial vial will be sent from the pharmacy without prompting. Replacement vials require a MAR request when needed. Pyxis has a vial for emergent doses only., Post-op/Post-Proc 0022 (Given - Provider: Giovana Saavedra RN)0554 (Not Given - Provider: Giovana Saavedra RN - Reason: Order Parameters not met)1206 (Given - Provider: Kailey Grant RN)1756 (Given - Provider: Kailey Grant RN) 0240 (Not Given - Provider: Divya Jauregui RN - Reason: Other - Comment: pt didn't have her feed)0601 (Given - Provider: Divya Jauregui RN)1305 (Given - Provider: Ethel Garcia, ANISHA)1743 (Given - Provider: Ethel Garcia, ANISHA) 0243 (Not Given - Provider: Divya Jauregui RN - Reason: NPO)0553 (Given - Provider: Divya Jauregui RN) Jevity 1.5 Jessica/Fiber LIQD 240 mL (CANCELED) 240 mL, Nasogastric, at 240 mL/hr, 5 times daily enteral feeds, First dose on Fri07/12/22 at 1445, Until Discontinued, Post-op/Post-Proc 0544 (New Feeding/Supplement - Provider: Giovana Saavedra RN)1207 (New Feeding/Supplement - Provider: Kailey Grant, ANISHA)1529 (New Feeding/Supplement - Provider: Kailey Grant, ANISHA) levothyroxine (SYNTHROID) tablet 75 mcg 75 mcg, Per NG tube, DAILY BEFORE BREAKFAST, First dose (after last modification) on Fri07/17/22 at 0600, Until Discontinued, Post-op/Post-Proc 0550 (Not Given - Provider: Divya Jauregui RN - Reason: NPO)0855 (Given - Provider: Amanda Nichols RN) Magnesium Sulfate 4 g in sterile water 50 ml premix IVPB (COMPLETED) 4 g, Intravenous, Administer over 4 Hours, ONCE, 1 dose, On Fri07/15/22 at 0715 1044 ($$New Bag$$ - Provider: Kailey Grant RN - Comment: not compatible with other IV med)1412 (Rate/Dose Verify - Provider: Kailey Grant RN)1414 (Rate/Dose Verify - Provider: Kailey Grant RN)1530 (Stopped - Provider: Kailey Grant RN) Magnesium Sulfate 4 g in sterile water 50 ml premix IVPB (COMPLETED) 4 g, Intravenous, Administer over 4 Hours, ONCE, 1 dose, On Fri07/17/22 at 0700 0757 ($$New Bag$$ - Provider: Amanda Nichols RN) Potassium Bicarb-Citric Acid (Effer-K) 20 MEQ effervescent tablets for oral solution 40 mEq (COMPLETED) 40 mEq, Per NG tube, ONCE, 1 dose, On Fri07/15/22 at 0715, Do not swallow whole. Dissolve completely in 3-4 ounces of water or cold juice before drinking. If administering via J tube, dilute in sterile water, wait for tablet to stop fizzing, swirl the solution and draw into a syringe suitable for attaching to the tube. After administration, flush tube with 15-30 ml water. 0844 (Given - Provider: Kailey Grant RN) Continuous Medication Order 07/15/2022 07/16/2022 07/17/2022 lactated [...] all sources in 24 hours., Post-op/Post-Proc 543 (Given - Provider: Giovana Saavedra RN)1527 (Given - Provider: Kailey Grant RN)2018 (Given - Provider: Divya Jauregui, RN) acetaminophen (TYLENOL) suppository 650 mg(Linked Group 2) [...] 50% needed, contact pharmacy or obtain from [employer] [facility] ++ docusate (COLACE) capsule 100 mg(Linked [...] Grant RN)2129 (Given - Provider: Divya Jauregui, ANISHA) 0914 (Given - Provider: Ethel Garcia, RN) 1103 (Given - Provider: Amanda Nichols, RN) melatonin tablet 6 mg 6 mg, Oral, DAILY AT BEDTIME NEEDED, Starting on Fri07/12/22 at 1436, Until Fri07/17/22 at 1558, Insomnia, Post-op/Post-Proc 0028 (Given - Provider: Divya Jauregui, RN) ondansetron (ZOFRAN) tablet 4 mg(Linked Group [...] PRN used in previous 12 hours., Post-op/Post-Proc 030 (See Alternative - Provider: Divya Jauregui RN) [...] PRN used in previous 12 hours., Post-op/Post-Proc 030 (See Alternative - Provider: Divya Jauregui RN) [...] (RR<10, decrease in level of consciousness)., Post-op/Post-Proc 030 (See Alternative - Provider: Divya Jauregui RN) [...] (RR<10, decrease in level of consciousness)., Post-op/Post-Proc 030 (Given - Provider: Divya Jauregui RN) oxyCODONE (ROXICODONE) tablet 5 mg(Linked Group 5) 5 mg, Oral, EVERY 4 HOURS NEEDED, Starting on Fri07/12/22 at 1436, Until Fri07/17/22 at 1558, Moderate Pain, Use as initial dose. Higher dose may be administered if lower dose was previously documented as ineffective and did not result in adverse effects (RR<10, decrease in level of consciousness)., Post-op/Post-Proc 030 (See Alternative - Provider: Divya Jauregui RN) [...] PRN used in previous 12 hours., Post-op/Post-Proc 308 (See Alternative - Provider: Divya Jauregui RN) [...] Jauregui RN)1835 (Rate/Dose Verify - Provider: Kailey Grant, ANISHA)2019 (Paused - Provider: Divya Jauregui RN)2049 (Restarted - Provider: Divya Jauregui RN) 0024 [...] Divya Jauregui RN)0947 (Paused - Provider: Divya Jaruegui RN)0947 (Restarted - Provider: Divya Jauregui RN)1346 [...] Divya Jauregui RN)1741 (Restarted - Provider: Divya Jaruegui RN)1741 (Stopped - Provider: Divya Jauregui RN)1741 (Stopped - Provider: Divya Jauregui RN)210 ($$New Bag$$ - Provider: Divya Jauregui RN)2105 (Rate/Dose Verify - Provider: Divya Jauregui RN)2106 (Paused - Provider: Divya Jauregui RN)213 (Restarted - Provider: Divya Jauregui RN)214 (Paused - Provider: Divya Jauregui RN)214 (Restarted - Provider: Divya Jauregui RN)222 (Paused - Provider: Divya Jauregui RN)2227 (Restarted - Provider: Divya Jauregui RN)2234 (Paused - Provider: Divya Jauregui RN)2235 (Restarted - Provider: Divya Jauregui RN)2243 (Paused - Provider: Divya Jauregui RN)2243 (Restarted - Provider: Divya Jauregui RN)2243 (Paused - Provider: Divya Jauregui RN)224 (Restarted - Provider: Divya Jauregui RN)2250 (Stopped - Provider: Divya Jauregui RN) Linked [...] glucose is greater than 200md/dl, then notify Fraternity Adviser. And BLOOD GLUCOSE (POC DEVICE) (CANCELED) Routine, [...] 50% needed, contact pharmacy or obtain from [employer] [facility] ++
And glucose (GLUTOSE) 40 % [...] at 0742, Until Specified
Who to Notify: Fraternity Adviser
For all Blood Glucose LESS THAN 80 mg/dl, notify Fraternity Adviser after treatment per Hypoglycemia in Non- Adults [...] Oral, EVERY 12 HOURS NEEDED, Starting on 07/14/22 at 1345, Until Fri07/17/22 at 1558, Constipation [...] Oral, DAILY AT BEDTIME, First dose on 07/21/22 at 2100, Until Discontinued 1954 (Given - Provider: Irma Marinelli RN) chlorhexidine (PERIDEX) 0.12 % oral solution 15 mL 15 mL, Oral, 4 TIMES DAILY, First dose on 07/21/22 at 1300, Until Discontinued 142 (Given - Provider: Ethel Callejas RN)2001 (Given [...] dose on Fri07/22/22 at 0600, Until Discontinued 0514 (Given - Provid er: Irma Marinelli RN) magic mouthwash (standard) Swish & Spit, 4 TIMES DAILY, First dose on 07/21/22 at 1300, Until Discontinued, Shake well. Expiration 7 days. 150 (Given - Provider: Ethel Callejas RN)2000 (Given - Provider: Irma Marinelli RN)2044 (Not Given - Provider: Irma Marinelli RN - Reason: Other - Comment: too soon to give) 08 (Not Given - Provider: Ethel Callejas RN [...] continuing treatment. Discontinue with IV Dye administration. 1999 (Given - Provider: Irma Marinelli RN) 48 (Given - Provider: Ethel Callejas RN) potassium [...] NEEDED, Starting on 07/21/22 at 1434, Until 07/22/22 at 1355, Moderate Pain, Maximum dose of acetaminophen is 4000 mg from all sources in 24 hours. 1429 (Given - Provider: Ethel Callejas RN) 0006 (Given - Provider: Irma Marinelli RN)0849 (Given - Provider: Ethel Callejas RN) oxyCODONE (ROXICODONE) tablet 5 mg 5 mg, Oral, EVERY 6 HOURS NEEDED, Starting on 07/21/22 at 1929, Until 07/22/22 at 1355, Severe Pain 195 (Given - Provider: Irma Marinelli RN) 0514 (Given - Provider: Irma Marinelli RN) INFORMATION SOURCE (unrecogn ized section and content) DATE CREATED AUTHOR 04/20/2025 [facility] DATE CREATED AUTHOR 'S DEENA WALLACE 06/17/[address] [facility] FOR RECORDS PERTAINING TO PATIENTS WHO ARE [...] BE BASED ON THE PRIMARY CLINICAL RECORDS. [facility] [facility]. provides no warranty or guarantee of the accuracy or completeness of information in this document.
[2025-06-20 06:58] LABS: Mucous, Urine 0 SEEN /hpf (<or=2+); Red Blood Cells-Urine 0 SEEN /hpf (0-5); Squamous Epithelial Cells - UA 0 SEEN /hpf (5-10)
[2025-06-20 08:09] LABS: Hematocrit 41.8 % (37-47); Hemoglobin 13.7 g/dL (12.0-15.0); Immature Granulocytes Count 0.010 X10^3/uL (0.0-0.0); Mean Corp Hgb Conc 32.8 g/dL (32-36); Mean Corpuscular Volume 91.1 fL (81-99); Mean Platelet Vol. 10.1 fl (6.2-12.0); NRBC Flagged by Analyzer 0 % (0-5); Platelet Count 269 K/mm3 (150-450); RBC Distribution Width CV 13.5 % (11.6-14.6); RBC Distribution Width SD 44.7 fl (35.1-43.9); Red Blood Count 4.59 M/mm3 (4.2-5.4); White Blood Count 5.7 K/mm3 (4.4-11.0)
[2025-06-20 08:30] LABS: Color, Urine Yellow (Yellow); Glucose, Dipstick 1000 mg/dl (Normal); Ketone-Dipstick Negative (Negative); Leukocyte Esterase-Dipstick 25 /ul (Negative); Nitrite-Dipstick Negative (Negative); Occult Blood-Urine Negative /ul (Negative); Protein-Dipstick 15 mg/dl (Negative); Specific Gravity, Urine 1.010 (1.002-1.030); Urine Bilirubin Dipstick Negative (Negative)
[2025-06-20 09:18] LABS: Creatinine, Urine (random) 87.60 mg/dL (28.00-217.00); Microalbumin,Random Urine < 12.0 mg/L (<20 mg/L)
[2025-06-20 09:32] LABS: Cholesterol 139 mg/dL (<=200); Low Density Lipoprotein Calc. 37 mg/dL; Magnesium 1.6 mg/dL (1.5-2.2); Triglycerides 190 mg/dL; Very Low Density Lipoprotein 38 mg/dL (5-40); cholesterol:hdl ratio screen 2.17
[2025-06-20 10:25] LABS: AST(SGOT) 29 U/L (<=31); Alanine Aminotransfer ALT/SGPT 24 U/L (<=34); Albumin, Serum 4.2 g/dL (3.4-4.8); Alkaline Phosphatase 71 U/L (35-104); Anion Gap 15 (5-15); BUN 18 mg/dL (4-19); BUN/Creat Ratio 23.4 RATIO (10-20); Calcium,Total 9.7 mg/dL (7.6-11.0); Carbon Dioxide 25.2 mmol/L (21.0-32.0); Chloride 100 mmol/L (98-108); Globulin 3.2 g/dL (2.2-4.2); Glucose 169 mg/dL (70-99); Potassium 4.3 mmol/L (3.3-5.1)
[2025-06-20 10:56] LABS: Vitamin D,25 Hydroxy 72.4 ng/mL (30-100)
== END | disposition home or self-care (01) ==
PROVIDERS: PCP Family Medicine; Referring Provider Family Medicine; Visit Provider Family Medicine
DX: E11.8 Type 2 diabetes mellitus with unspecified complications (principal); E06.3 Autoimmune thyroiditis; E03.8 Other specified hypothyroidism; E83.42 Hypomagnesemia; E55.9 Vitamin D deficiency, unspecified
CPT/HCPCS: 80053; 80061; 81001; 82043; 82306; 82570; 83036; 83735; 84439; 84443; 85025

== ENCOUNTER → 2025-07-09 | Outpatient (CLI) | payer MEDICARE, OTHER, SELFPAY ==
--- OUTSIDE RECORDS SUMMARY | 2025-06-15 13:41 | XMS RPT_ITS ---
Author Name Auto Generated Organization OH[facility] Care Team Providers Care Yarn Dyer Name Role Phone HEATHER ALMARAZ Attending Unavailable DUONG CAI Primary Care Unavailable MISHA KOROMA Referring Unavailable MISHA KOROMA Attending Unavailable DUONG CAI Referring Unavailable DUONG CAI Primary Care Unavailable PROBLEMS DATE TYPE CONDITION / CODE ATTENDING STATUS [facility] 06/15/2025 Admitting diagnosis Follow-up / 145() MISHA KOROMA Active [facility] PROCEDURES No Procedure Records Found RESULTS ALLERGIES No Allergies Records Found ENCOUNTERS ADMIT/DISCHARGE ACCOUNT NUMBER ADMITTING ENCOUNTER CLASS LOC ATION SOURCE 06/15/2025 [id number] Ambulatory JAMESBuildin g :[facility] 12/14/2024 [id number] Ambulatory JAMESBuildin g :[address] PAYERS ENCOUNTER GUARANTOR PAYER SUBSCRIBER SOURCE 06/15/2025 RITCHIE MACKSDOB: [id number] [facility] [place] [address]Jah: ~[phone]) Primary Insurance:MEDICARE A AND BPolicy Number: [id number] ve Date:4318-25-04Shc n Name:ANNMARIE MACKABDELRAHMANOB: [id number] [place], [place] [address]Odd: (HP) [facility] 06/15/2025 Secondary Insurance:KIANNEELnaila cy Number: [id number] ve Date:3690-79-07Vjs n Name:MANAGED CARE RITCHIE RIOSJATINOB: [id number] [place], [place] [address]Oat: (HP) [facility] 12/14/2024 RITCHIE RIOSJATINOB: [id number] [place] [address]Jqm: ~[phone] (HP) Primary Insurance:MEDICARE A AND BPolicy Number: [id number] ve Date:9087-51-16Kvz n Name:ANNMARIE RIOSJATINOB: [id number] [place], [place] [address]Zrb: (HP) [facility] 12/14/2024 Secondary Insurance:KIANNEELnaila cy Number: [id number] ve Date:1446-28-02Fbh n Name:MANAGED CARE RITCHIE Beebe YAHIROB: [id number] [place], [place] [address]Ouv: (HP) [facility]
[2025-07-12 08:09] LABS: Calprotectin, Stool 105 ug/g (0-120)
== END | disposition home or self-care (01) ==
LOC: LABSPEC 10:01
PROVIDERS: PCP Family Medicine; Referring Provider Student in an Organized Health Care Education/Training Program; Visit Provider Student in an Organized Health Care Education/Training Program
DX: R19.7 Diarrhea, unspecified (principal)
CPT/HCPCS: 83993